=== PATIENT | male | born 1945 | race Caucasian/White ===

== ENCOUNTER → 2019-07-14 16:14 | Outpatient (CLI) | payer MEDICARE, SELFPAY ==
--- NOTE | ~2019-07-14 | XR_ITS ---
EXAMINATION: XR ankle LT 2V DATE: 07/14/2019 17:10 INDICATION: Left ankle pain TECHNIQUE: Two views of the left ankle were obtained. COMPARISON: None. FINDINGS: There is lateral soft tissue swelling of ankle. No fracture is identified. Calcified athero sclerosis is noted. IMPRESSION: 1. Lateral ankle soft tissue swelling without evidence of acute osseous abnormality. Reviewed, dictated and finalized at location A. CIATE PROFESSOR OF GEOLOGY IMPRESSION: 1. Lateral ankle soft tissue swelling without evidence of acute osseous abnorma lity.
== END ==
PROVIDERS: PCP Family Medicine; Visit Provider Family Medicine
DX: M25.472 Effusion, left ankle (principal)
CPT/HCPCS: 73600

== ENCOUNTER 2020-01-31 10:49 | Emergency (ER) | payer MEDICARE, SELFPAY ==
[2020-01-31 10:59] VITALS: BP 126/60; PULSE 50; RESP 16; TEMP 36.3; O2SAT 100
--- NOTE | 2020-01-31 11:01 | ED.SKABFB ---
HPI - Skin/Abscess/Foreign Bdy General Chief complaint: Skin/Abscess/Foreign Body Stated complaint: Rash Time Seen by Provider: 01/31/20 11:01 Source: patient and RN notes reviewed Mode of arrival: ambulatory Limitations: no limitations History of Present Illness HPI narrative: 74-year-old male history of type 1 diabetes presents with concern for rash, he thinks could be poison celeste. Reports he has had the rash on and off for approximately 3 weeks, he is unaware if he was in contact with poison celeste. Reports the rash is mildly pruritic and located on his trunk and upper legs. Reports the rash have been located on his lower legs but had resolved. He reports taking Benadryl this morning, using calamine lotion and washing the rash with dish soap. He denies any trouble breathing, swollen lips, swollen tongue. MD complaint: rash Related Data Home Medications Medication Instructions Recorded Confirmed aspirin 81 mg tablet,delayed 81 mg PO DAILY 07/14/19 release atorvastatin 40 mg tablet 40 mg PO DAILY 07/14/19 insulin glargine 100 unit/mL 100 unit SUB-Q DAILY 07/14/19 subcutaneous solution isosorbide mononitrate 60 mg 60 mg PO DAILY 07/14/19 tablet,extended release 24 hr metoprolol tartrate 50 mg tablet 50 mg PO BID tablet 07/14/19 Allergies Allergy/AdvReac Type Severity Reaction Status Date / Time levofloxacin Allergy Unknown Muscle Verified 08/02/18 15:00 Spasms Review of Systems Review of Systems: Narrative: CONSTITUTIONAL: Denies malaise, chills, sweats, or fever. EYES: Denies redness, or discharge. ENT: Denies swollen lips, swollen tongue CARDIOVASCULAR: Denies chest pain, palpitations RESPIRATORY: Denies cough or dyspnea. GASTROINTESTINAL: Denies abdominal pain, nausea, vomiting, diarrhea SKIN: Reports mildly itchy rash on abdomen and legs MUSCULOSKELETAL: Denies joint pain or myalgia. All systems reviewed & are unremarkable except as noted in HPI and below PMFSH Social History Social History Smoking status: Never smoker Alcohol intake: current Comments At time of signature, agree with nursing past medical, surgical, social and family history. There is no relevant family history pertinent to the presenting complaint Exam Narrative: Exam Narrative: GENERAL: Well-appearing, well-nourished, and in no acute distress. HEAD: Normocephalic EYES: PERRLA, conjunctivae clear, sclera clear ENT: Mucous membranes moist. NECK: Supple. CHEST: No respiratory distress. Speaks in full sentences. SKIN: Warm, dry. Papular pink rash noted to inner thighs, abdomen NEURO: Alert and oriented x3. PSYCH: Normal mood and affect Course Course Emergency Course: Patient is aware of diagnosis, understands and agrees to treatment plan. Anticipatory guidance given. Patient agrees to follow-up as directed and is aware of reasons to seek care at the emergency department. Portions of this record may have been created with voice recognition software Vital Signs Vital signs: Vital Signs Temperature 97.3 F L 01/31/20 10:59 Pulse Rate 50 L 01/31/20 10:59 Respiratory Rate 16 01/31/20 10:59 Blood Pressure 126/60 01/31/20 10:59 Pulse Oximetry 100 01/31/20 10:59 Temperature 97.3 F L 01/31/20 10:59 Pulse Rate 50 L 01/31/20 10:59 Respiratory Rate 16 01/31/20 10:59 Blood Pressure 126/60 01/31/20 10:59 Pulse Oximetry 100 01/31/20 10:59 Reviewed. MDM - Skin/Abscess/Foreign Bdy MDM Narrative Medical decision making narrative: Does not appear at this time to be erythema multiforme, bullous, SJS, TEN; no evidence at this time to suggest RMSF, endocarditis or Lyme disease; patient looks well, nontoxic and is tolerating oral intake; no neurologic signs or symptoms; no headache, photophobia or neck pain; afebrile; appropriate for initial outpatient treatment; discussed the importance of follow-up, patient agrees; question, viral exanthe
== END 2020-01-31 11:18 | disposition home or self-care (01) ==
PROVIDERS: Emergency Provider Nurse Practitioner
DX: L25.9 Unspecified contact dermatitis, unspecified cause (principal); E78.00 Pure hypercholesterolemia, unspecified; I10 Essential (primary) hypertension; E10.9 Type 1 diabetes mellitus without complications
CPT/HCPCS: 99213; G0463

== ENCOUNTER 2021-04-10 12:37 | Inpatient (IN) | payer MEDICARE, OTHER, SELFPAY ==
[2021-04-10] VITALS (18 sets, daily range): BP systolic 126–159; BP diastolic 50–65; PULSE 72–93; RESP 13–30; TEMP 37.2–38.6; O2SAT 90–96; BMI 27.9
--- NOTE | ~2021-04-10 | US_ITS ---
EXAMINATION: US venous doppler [facility] DATE: 04/11/2021 12:11 INDICATION: Hypoxia TECHNIQUE: Lo scale images without and with compression and Doppler images of the bilateral lower e xtremity veins were obtained. COMPARISON: None FINDINGS: The right common femoral vein, profunda femoral vein, femoral vein, popliteal vein, peroneal trunk, p osterior tibial veins, and greater saphenous vein are patent. The left common femoral vein, profunda femoral vein, femoral vein, popliteal vein, peroneal trunk, po sterior tibial veins, and greater saphenous vein are patent. IMPRESSION: 1. Patent bilateral lower extremity veins. No evidence of deep venous thrombosis. Reviewed, dictated and finalized at location B. X RAY NURSE IMPRESSION: 1. Patent bilateral lower extremity veins. No evidence of deep venous thrombosi s.
--- NOTE | ~2021-04-10 | CT_ITS ---
EXAMINATION: CTA chest PE protocol DATE: 04/11/2021 14:26 INDICATION: Pneumonia and hypoxia TECHNIQUE: Computed tomography angiography (CTA) of the chest was performed with 100 mL Omnipaque-350 intravenous contrast timed to evaluate the pulmonary arteries. Coronal maximum intensity projection 3D-reconstructions were created by the technologist. The dose-length product (DLP) was 399.37 mGy-cm. Automated exposure control and iterative reconstruction technique were employed. COMPARISON: None. FINDINGS: The pulmonary arteries are well-opacified. No pulmonary embolism is identified. Respiratory motion slightly limits the examination. There are airspace opacities of the right upper, middle, and lower lobes. There are patchy airspace opacities of the left lower lobe. There are small pleural eff usions, right greater than left. No pneumothorax is identified. Cardiomegaly is noted. There is a david l-lead pacemaker of the left chest wall which ends with its lead in the right atrium and right ventri david. There is a partially imaged cyst of the right kidney measuring at least 8.1 cm. There appears to be an age-indeterminate compression fracture of the T3 vertebral body. IMPRESSION: 1. No pulmonary embolus identified, sensitivity slightly limited by motion artifact. 2. Multifocal pneumonia, predominantly involving the right upper, middle, and lower lobes. Reviewed, dictated and finalized at location B. HERY WORKER IMPRESSION: 1. No pulmonary embolus identified, sensitivity slightly limited by motion owen fact. 2. Multifocal pneumonia, predominantly involving the right upper, middle, and l ower lobes.
--- NOTE | ~2021-04-10 | XR_ITS ---
XR chest 1V portable 04/10/2021 13:25 Indication: Cough and shortness of breath. Covid infection. Procedure: AP portable chest Comparison: 12/08/2012 Findings: Heart size is upper normal. Pacemaker leads in expected position. There is right basilar ai rspace consolidation, consistent with pneumonia. No pleural effusion or pneumothorax. No acute osseou s abnormality. Impression: 1: Right basilar airspace disease, compatible with pneumonia. Reviewed, dictated and finalized at location A. ICAL SCIENCES PROFESSOR Impression: 1: Right basilar airspace disease, compatible with pneumonia.
--- NOTE | ~2021-04-10 | XR_ITS ---
EXAMINATION: XR chest 1V portable INDICATION: Cough TECHNIQUE: Portable AP chest at 04/14/2021 COMPARISON: 04/11/2021 FINDINGS: Right-sided airspace opacities persist with interval worsening. Left lower lobe airspace op acities are unchanged. Cardiomegaly is noted. There is no pleural effusion or pneumothorax. A dual-le ad cardiac pacemaker of the left chest wall ends with leads in expected locations. IMPRESSION: 1. Worsening airspace opacities of the right lung, consistent with pneumonia. Reviewed, dictated and finalized at location A. WABLE ENERGY TECHNICIAN
[2021-04-10 13:29] LABS: Basophils Percent Auto 0.1 % (0.2-1.2); Hematocrit 46.4 % (42.0-52.0); Hemoglobin 15.3 g/dL (14.0-18.0); Immature Granulocyte Absolute 0.03 K/mm3 (0.00-0.031); Immature Granulocyte Percent A 0.2 % (0-0.5); Lymphocytes Absolute Auto 0.45 K/mm3 (0.9-3.2); Lymphocytes Percent Auto 3.3 % (18.3-44.2); Mean Corpuscular Hemoglobin 30.8 pg (26-34); Mean Corpuscular Volume 93.4 fl (80-100); Mean Platelet Volume 9.4 fl (7.4-10.4); Monocytes Absolute Auto 1.1 K/mm3 (0.1-0.6); Monocytes Percent Auto 8.2 % (2.6-8.5); Neutrophils Absolute Auto 12.1 K/mm3 (1.3-6.7); Neutrophils Percent Auto 88.2 % (45.5-73.1); Platelet Count Result 148 k/mm3 (150-375); Red Blood Count 4.97 M/mm3 (4.6-6.20); Red Cell Distribution Width 13.8 % (11.5-14.5); White Blood Count 13.7 K/mm3 (4.5-10.0)
[2021-04-10 13:50] LABS: Anion Gap 10 mmol/L (8-16); Blood Urea Nitrogen 31 mg/dL (9-20); Calcium 8.6 mg/dL (8.4-10.2); Carbon Dioxide 27 mmol/L (22-30); Chloride 94 mmol/L (98-107); Estimated CRCL calculation 41 ml/min; Estimated Glomerular Filt Rate 46; Glucose 332 mg/dL (65-110); Potassium 4.7 mmol/L (3.4-5.0); Sodium 131 mmol/L (137-145)
--- NOTE | 2021-04-10 13:54 | ED.URI ---
HPI - URI/Sore Throat General Chief Complaint: Upper Respiratory Infection Stated Complaint: i think i have the flu Time Seen by Provider: 04/10/21 12:56 Source: patient Mode of arrival: ambulatory History of Present Illness HPI Narrative: 75-year-old male Here for 3-day history of illness reminiscent of when he had his butt kicked by influenza 30 years ago He has a 3-day history of fevers up to 102.5 and generalized body aches He has been urinating very frequently but reports no dysuria or hematuria He does not have shortness of breath and very little in the way of a cough No rashes or redness or anything that looks like cellulitis No diarrhea He reports that his blood sugars have also been running very high in the upper 300s, and that he took an extra 60 units of regular insulin today He has both influenza and Covid vaccines that are up-to-date Related Data Home Medications Medication Instructions Recorded Confirmed aspirin 81 mg tablet,delayed 81 mg PO DAILY 07/14/19 03/08/21 release isosorbide mononitrate 60 mg 60 mg PO DAILY 07/14/19 03/08/21 tablet,extended release 24 hr metoprolol tartrate 50 mg tablet 50 mg PO BID tablet 07/14/19 03/08/21 atorvastatin 20 mg tablet 20 mg PO DAILY 08/24/20 03/08/21 cholecalciferol (vitamin D3) 50 50 mcg PO DAILY 08/24/20 03/08/21 mcg (2,000 unit) tablet clopidogrel 75 mg tablet 75 mg PO DAILY 08/24/20 03/08/21 diphenhydramine 25 1 tablet PO QHS PRN 08/24/20 03/08/21 mg-acetaminophen 500 mg tablet furosemide 20 mg tablet 20 mg PO QAM PRN 08/24/20 03/08/21 insulin glargine 100 unit/mL 34 unit SUB-Q DAILY ml 08/24/20 03/08/21 subcutaneous solution insulin lispro 100 unit/mL See Rx Instructions SUBCUT DAILY 08/24/20 03/08/21 subcutaneous pen ml isosorbide mononitrate 30 mg 30 mg PO DAILY 08/24/20 03/08/21 tablet,extended release 24 hr ropinirole 1 mg tablet 1 mg PO DAILY tablet 08/24/20 03/08/21 sacubitril 49 mg-valsartan 51 mg 0.5 tablet PO BID tablet 08/24/20 03/08/21 tablet Allergies Allergy/AdvReac Type Severity Reaction Status Date / Time levofloxacin Allergy Unknown Muscle Verified 04/10/21 12:52 Spasms lisinopril AdvReac Unknown High Verified 04/10/21 12:52 potassium Review of Systems Review of Systems: All systems reviewed & are unremarkable except as noted in HPI and below Constitutional: Constitutional: Reports no additional constitutional complaints, Reports body ache(s), Reports chills, Reports fatigue, Reports fever(s) and Denies headache(s) Eyes: Eyes: Reports no additional eye complaints and Denies change in vision ENT: Denies headache(s) and Denies sore throat Cardiovascular: Cardiovascular: Denies chest pain and Denies dyspnea Respiratory: Respiratory: Denies cough and Denies dyspnea Gastrointestinal: Gastrointestinal: Denies abdominal pain, Denies diarrhea and Denies vomiting Genitourinary: Genitourinary: Denies dysuria and Denies urinary frequency Musculoskeletal: Musculoskeletal: Denies deformity, Denies arthralgias, Denies joint swelling and Denies numbness Integumentary/Breasts: Skin/Breast: Denies rash and Denies wounds Neurologic: Denies headache(s), Denies focal weakness and Denies numbness Psychiatric: Psychiatric: Reports no additional psychiatric complaints Endocrine: Endocrine: Reports no additional endocrine complaints Hematologic/Lymphatic: Hematologic/Lymphatic: Reports no additional hematologic/lymphatic complaints Allergic/Immunologic: Allergic/Immunologic: Reports no additional allergic/immunologic complaints [facility] Past Medical History Medical History (Updated 04/10/21 @ 15:28 by Victoriano Markham MD) Cardiac pacemaker Heart block Surgical History Surgical History H/O percutaneous transluminal coronary angioplasty H/O vasectomy Family History Family History Grandparent Di
--- NOTE | 2021-04-10 14:09 | PC.NURSE ---
called lab to add on new orders to [facility]
[2021-04-10 14:15] LABS: Add Urine Microscopic? YES; Appearance Urine Cloudy (Clear); Bilirubin Urine Negative (Negative); Blood Urine 2+ (Negative); Color Urine Yellow (Yellow); Glucose Urine UA 3+ mg/dL (Negative); Ketones Urine Trace mg/dL (Negative); Leukocyte Esterase Ur Negative LEU/UL (Negative); Mucus Urine Rare /lpf; Nitrate Urine Negative (Negative); Protein Urine 3+ mg/dL (Negative); Specific Grav Ur 1.028 (1.001-1.035); Squamous Epithelial Cell Urine Occasional /hpf (Few); WBC Urine 0-3 /hpf
[2021-04-10 14:36] LABS: Beta-Hydroxybutyrate/Acetoacetate 0.98 mmol/L (0.02-0.27)
[2021-04-10 14:56] LABS: Lactate Dehydrogenase 590 U/L (313-618)
[2021-04-10 15:30] LABS: Glucose Point of Care 303 mg/dl (65-105)
[2021-04-10] MEDS: INSULIN HUMAN REGULAR (*BKC) 100 UNITS/ML IV PUSH (15:51)
[2021-04-10 16:32] LABS: Glucose Point of Care 276 mg/dl (65-105)
--- NOTE | 2021-04-10 16:35 | PC.NURSE ---
LR incompatible or not tested with antibiotics. MD aware. Start with antibiotics, continue with LR when complete.
[2021-04-10] MEDS: LACTATED RINGERS 1,000 ML 999 ML IV CONT (16:55)
--- NOTE | 2021-04-10 17:09 | PM.IMHP ---
H&P: HPI History of Present Illness Date/Time: 04/10/21 17:09 this is a 75-year-old male patient who resides with his . The patient stated for the last 3 days he has been very ill. The patient thought that maybe he had influenza. He does not have any other sick contacts. The patient has been having some shortness of breath and very little cough. He has been feeling very weak. He has diabetes type 1 and his blood sugar has been in the upper 300s. The patient stated that he took 60 units of regular insulin today. His white count was noted to be 13.7. Chest x-ray was read as right basilar airspace disease, compatible with pneumonia. The patient was started on ceftriaxone and doxycycline in the emergency room he was started on lactated Ringer's and given IV insulin. His sodium was noted to 131 chloride 94. Creatinine 1.5. His blood sugar initially was 303 now is 276. Earlier this year his hemoglobin A1c was 6.7 on 08/14/2020. His COVID swab is pending. The patient is being admitted to inpatient status on the date of service of 04/10/2021. Chief Complaint: Weakness and shortness of breath Review of Systems Review of Systems: All systems reviewed & are unremarkable except as noted in HPI and below Constitutional: Constitutional: Reports as per HPI and Reports no additional constitutional complaints Eyes: Eyes: Reports as per HPI and Reports no additional eye complaints ENT: Reports system reviewed and no additional complaints, except as documented and Reports Normal hearing present Cardiovascular: Cardiovascular: Reports no additional cardiovascular complaints Respiratory: Respiratory: Reports no additional respiratory complaints and Reports no additional respiratory complaints Gastrointestinal: Gastrointestinal: Reports as per HPI and Reports no additional gastrointestinal complaints Musculoskeletal: Musculoskeletal: Reports no additional musculoskeletal complaints Integumentary/Breasts: Skin/Breast: Reports system reviewed and no additional complaints, except as docu and Reports as per HPI Neurologic: Reports system reviewed and no additional complaints, except as documented, Reports as per HPI and Reports Normal hearing present Psychiatric: Psychiatric: Reports no additional psychiatric complaints and Reports as per HPI Endocrine: Endocrine: Reports no additional endocrine complaints Hematologic/Lymphatic: Hematologic/Lymphatic: Reports no additional hematologic/lymphatic complaints Allergic/Immunologic: Allergic/Immunologic: Reports no additional allergic/immunologic complaints [facility] Past Medical History Medical History (Updated 04/10/21 @ 17:32 by Rosita Gallardo NP) CAD (coronary artery disease) Cardiac pacemaker Congestive heart failure Depression with anxiety Essential (primary) hypertension Heart block Complete heart block requiring a pacemaker Impacted cerumen of right ear Mixed hyperlipidemia Restless leg syndrome Type 1 diabetes mellitus maturity onset Surgical History Surgical History (Updated 04/10/21 @ 17:15 by Rosita Gallardo NP) H/O percutaneous transluminal coronary angioplasty H/O vasectomy History of coronary artery stent placement X8 Family History Family History Grandparent Diabetes mellitus Hypertension Family history of coronary artery disease Sibling Hypertension Mother Family history of elevated blood lipids Family history of coronary artery disease Hypertension Family history of cardiovascular disease Father Family history of coronary artery disease Family history of elevated blood lipids Hypertension Family history of cardiovascular disease Social History Social History (Updated 04/10/21 @ 17:17 by Rosita Gallardo NP) Social History: The patient is and lives with his . He has 2 children. 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 The yoselin
[2021-04-10] MEDS: INSULIN ASPART (*BKC) 100 UNITS/ML SUB-Q (17:48)
[2021-04-10] MEDS: LACTATED RINGERS 1,000 ML 150 ML IV CONT ×2 (17:48→23:09)
[2021-04-10 17:49] LABS: Glucose Point of Care 297 mg/dl (65-105)
[2021-04-10] MEDS: ALBUTEROL SULFATE (*SP) INHALER 2 PUFF INHALATION (21:15)
[2021-04-10 21:38] LABS: Glucose Point of Care 380 mg/dl (65-105)
[2021-04-10] MEDS: rOPINIRole HCL 1 MG TABLET PO (23:08)
[2021-04-10] MEDS: METOPROLOL TARTRATE 50 MG TAB PO (23:09)
[2021-04-10] MEDS: INSULIN GLARGINE (*BKC) 100 UNITS/ML 34 UNITS SUB-Q (23:10)
[2021-04-10] MEDS: INSULIN ASPART (*BKC) 100 UNITS/ML 8 UNITS SUB-Q (23:10)
[2021-04-10] MEDS: ACETAMINOPHEN 325 MG TABLET 650 MG PO (23:16)
[2021-04-10] MEDS: SACUBITRIL/VALSARTAN 24-26 MG TABLET 1 TAB PO (23:17)
[2021-04-10] MEDS: diphenhydrAMINE HCl CAP 25 MG CAPSULE PO (23:17)
[2021-04-11] VITALS (15 sets, daily range): BP systolic 104–149; BP diastolic 53–77; PULSE 73–118; RESP 18–28; TEMP 36–37.6; O2SAT 86–98
[2021-04-11] MEDS: ALBUTEROL SULFATE (*SP) INHALER 2 PUFF INHALATION ×4 (03:03→19:45)
[2021-04-11 07:04] LABS: Basophils Percent Auto 0.1 % (0.2-1.2); Hematocrit 48.8 % (42.0-52.0); Hemoglobin 15.7 g/dL (14.0-18.0); Immature Granulocyte Absolute 0.08 K/mm3 (0.00-0.031); Immature Granulocyte Percent A 0.6 % (0-0.5); Lymphocytes Percent Auto 4.5 % (18.3-44.2); Mean Corpuscular HGB Conc 32.2 g/dl (32-36); Mean Corpuscular Hemoglobin 30.4 pg (26-34); Mean Corpuscular Volume 94.4 fl (80-100); Mean Platelet Volume 10.4 fl (7.4-10.4); Monocytes Absolute Auto 1.4 K/mm3 (0.1-0.6); Monocytes Percent Auto 10.3 % (2.6-8.5); Neutrophils Absolute Auto 11.3 K/mm3 (1.3-6.7); Neutrophils Percent Auto 84.5 % (45.5-73.1); Platelet Count Result 152 k/mm3 (150-375); Red Blood Count 5.17 M/mm3 (4.6-6.20); White Blood Count 13.4 K/mm3 (4.5-10.0)
[2021-04-11 08:00] LABS: Alanine Aminotransferase 22 U/L (4-50); Albumin Level 3.2 g/dL (3.5-5.1); Alkaline Phosphatase 124 U/L (38-126); Anion Gap 8 mmol/L (8-16); Aspartate Amino Transferase 65 U/L (17-59); Bilirubin,Total 0.8 mg/dL (0.2-1.3); Blood Urea Nitrogen 28 mg/dL (9-20); Calcium 8.8 mg/dL (8.4-10.2); Carbon Dioxide 24 mmol/L (22-30); Chloride 98 mmol/L (98-107); Estimated CRCL calculation 44 ml/min; Estimated Glomerular Filt Rate 50; Glucose 337 mg/dL (65-110); Lactate Dehydrogenase 636 U/L (313-618); Phosphorus 3.6 mg/dL (2.5-4.5); Potassium 4.9 mmol/L (3.4-5.0); Sodium 130 mmol/L (137-145)
[2021-04-11 08:27] LABS: Hemoglobin A1C 6.1 % (<5.7)
[2021-04-11] MEDS: SACUBITRIL/VALSARTAN 24-26 MG TABLET 1 TAB PO ×2 (08:44→20:45)
[2021-04-11] MEDS: CHOLECALCIFEROL 1,000 UNITS TABLET 2000 UNITS PO (08:45)
[2021-04-11] MEDS: ASPIRIN 81 MG ENTERIC TABLET PO (08:45)
[2021-04-11] MEDS: ENOXAPARIN 40 MG/0.4 ML SYRINGE SUB-Q (08:45)
[2021-04-11] MEDS: CITALOPRAM HYDROBROMIDE 20 MG TABLET PO (08:45)
[2021-04-11] MEDS: CLOPIDOGREL BISULFATE 75 MG TABLET PO (08:45)
[2021-04-11] MEDS: ATORVASTATIN 20 MG TABLET PO (08:45)
[2021-04-11] MEDS: ISOSORBIDE MONONITRATE 60 MG TAB.ER.24H 120 MG PO (08:45)
[2021-04-11] MEDS: ISOSORBIDE MONONITRATE 30 MG TAB.ER.24H PO (08:45)
[2021-04-11] MEDS: METOPROLOL TARTRATE 50 MG TAB PO ×2 (08:46→20:45)
[2021-04-11] MEDS: INSULIN ASPART (*BKC) 100 UNITS/ML SUB-Q ×2 (08:52→09:06)
[2021-04-11 08:58] LABS: Glucose Point of Care 423 mg/dl (65-105)
[2021-04-11 10:33] LABS: Glucose Point of Care 406 mg/dl (65-105)
[2021-04-11] MEDS: INSULIN ASPART (*BKC) 100 UNITS/ML 10 UNITS SUB-Q ×2 (11:11→12:32)
[2021-04-11 12:41] LABS: Glucose Point of Care 363 mg/dl (65-105)
--- NOTE | 2021-04-11 14:18 | PM.IMPN ---
Progress Note: A&P Assessment and Plan (1) Pneumonia: Code(s): J18.9 - Pneumonia, unspecified organism Status: Acute Assessment and Plan: CT of the lungs show significant pneumonia of the right lung, suspect this will end up being bacterial pneumonia -continue ceftriaxone and azithromycin -continue oxygen as needed -continue albuterol -blood cultures have no growth to date -patient has a dry cough but we will try to get a sputum culture -await COVID PCR test, patient is fully vaccinated. Influenza negative -d-dimer elevated, await official CTA read. (2) Suspected COVID-19 virus infection: Code(s): Z20.822 - Contact with and (suspected) exposure to COVID-19 Status: Acute Assessment and Plan: Continue isolation (3) CAD (coronary artery disease): Code(s): I25.10 - Atherosclerotic heart disease of cheesh-na coronary artery without angina pectoris Status: Chronic Assessment and Plan: No chest pain. Continue with aspirin, atorvastatin, metoprolol, and Plavix (4) Congestive heart failure: Code(s): I50.9 - Heart failure, unspecified Status: Chronic Assessment and Plan: Patient appears euvolemic. -continue Entresto, metoprolol, aspirin, atorvastatin and isosorbide (5) Essential (primary) hypertension: Code(s): I10 - Essential (primary) hypertension Status: Chronic Assessment and Plan: Last blood pressure 104/60 -monitor (6) Type 1 diabetes mellitus maturity onset: Code(s): E10.9 - Type 1 diabetes mellitus without complications Status: Chronic Assessment and Plan: Patient confirms he is a type 1 diabetic. Last glucose 363 -Patient is unsure of exactly how much insulin he takes but thinks it is about 100 units a day combined -for now we will start with 20 units of insulin scheduled with sliding scale as well as Lantus -his diabetes is under control at home with an A1c of 6.1 (7) Restless leg syndrome: Code(s): G25.81 - Restless legs syndrome Status: Chronic Assessment and Plan: Continue with continue with ropinirole (8) Mixed hyperlipidemia: Code(s): E78.2 - Mixed hyperlipidemia Status: Chronic Assessment and Plan: Continue with atorvastatin (9) Depression with anxiety: Code(s): F41.8 - Other specified anxiety disorders Status: Chronic Assessment and Plan: Chronic and controlled. Continue with Celexa Time Spent With Patient Time with patient: 25 - 35 minutes Subjective Date/time seen: 04/11/21 14:18 Interval history: Pt is a 75 y/o male here for PNA. Pt was seen today and states he feels so much better while wearing oxygen. This morning he felt like he was struggling to breathe and that he thought he was going to . He is coughing but it is a dry cough. He has shortness of breath with any movement. He has decreased appetite. No nausea, vomiting, diarrhea or constipation. He is unsure the amount of insulin he takes at home. He at 1st thought it was 100 units with meals but then thought maybe it was 30. I called the who did not know how much insulin he took either. Review of Systems Review of Systems: All systems reviewed & are unremarkable except as noted in HPI and below Exam Narrative: General: Well developed well nourished patient in NAD HEENT: normocephalic Neck: supple Neuro: Alert and oriented x4 CV:RRR Resp: Crackles and rhonchi worse in the right lobe with decreased breath sounds. No conversational dyspnea. 6 L applied Abd: Soft, non distended. No pain to palpation. Positive bowel sounds Extremities: No swelling, erythema, or pain to palpation. Objective Data Vital Signs Vital Signs: Vital Signs - 24 hr 04/10/21 14:54 04/10/21 15:00 04/10/21 15:18 Temperature Pulse Rate 78 72 86 Respiratory Rate 13 14 23 H Blood Pressure Pulse Oximetry 94 96 11
[2021-04-11] MEDS: guaiFENesin 12 HR 600 MG TABCR PO ×2 (15:20→20:46)
[2021-04-11 17:00] LABS: Glucose Point of Care 162 mg/dl (65-105)
[2021-04-11 17:50] LABS: SARS-CoV-2 RNA PCR Negative
[2021-04-11 18:39] LABS: Glucose Point of Care 206 mg/dl (65-105)
[2021-04-11 20:27] LABS: Glucose Point of Care 239 mg/dl (65-105)
[2021-04-11] MEDS: INSULIN GLARGINE (*BKC) 100 UNITS/ML 34 UNITS SUB-Q (20:44)
[2021-04-11] MEDS: rOPINIRole HCL 1 MG TABLET PO (20:45)
[2021-04-11] MEDS: ACETAMINOPHEN 325 MG TABLET 650 MG PO (20:55)
[2021-04-12] VITALS (16 sets, daily range): BP systolic 135–138; BP diastolic 61–64; PULSE 48–107; RESP 16–18; TEMP 36.8–37.3; O2SAT 92–98
--- NOTE | 2021-04-12 | ECHO_ITS ---
Patient Info Name: Óscar Soto Age: 75 years : 1945 Gender: Male Ht: 70 in Wt: 190 lbs BSA: 2.08 m2 HR: 91 bpm BP: 136 / 61 mmHg Heart Rhythm: Paced Exam Date: 04/12/2021 9:30 AM Exam Location: [facility] Patient Status: Inpatient Admit Date: 04/10/2021 Staff Ordering Physician: Rosita Gallardo NP Wind Site Manager: Laron Montano RDCS, RT Attending Provider: Dionne Jacobs PA-C Referring Physician: Paulina KELLOGG; Exam Type: CA echo doppler color flow Study Info Indications I50.9 - Heart failure, unspecified Complete two-dimensional, color flow and Doppler transthoracic echocardiogram is performed. Strain analysis performed. Summary 1. Complete two-dimensional, color flow and Doppler transthoracic echocardiogram is performed. 2. Left ventricular chamber dimension is mildly enlarged. 3. Left ventricular systolic function is moderately reduced, estimated at 35-40%. 4. Linear artifact in right ventricle suggestive of catheter(s), pacemaker lead(s), or ICD lead(s). 5. Left atrial chamber dimension is mildly enlarged. 6. Small amount of mitral and aortic valve regurgitation. Left Ventricle Left ventricular chamber dimension is mildly enlarged. Left ventricular systolic function is moderately reduced, estimated at 35-40%. The left ventricular diastolic function is normal. Right Ventricle Right ventricular chamber dimension is normal. Linear artifact in right ventricle suggestive of catheter(s), pacemaker lead(s), or ICD lead(s). Left Atria Left atrial chamber dimension is mildly enlarged. Right Atria Right atrial chamber dimension is normal. Linear artifact in the right atrium suggestive of catheter(s), pacemaker lead(s), or ICD lead(s). Aortic Valve The aortic valve is trileaflet. There is mild aortic valve sclerosis. There is mild aortic valve regurgitation. Pulmonic Valve The pulmonic valve is not well visualized. Mitral Valve The mitral valve has normal leaflets. There is trace mitral valve regurgitation. Tricuspid Valve The tricuspid valve leaflets are normal. Pericardium/Pleural The pericardium appears normal. Aorta The aortic root size at the sinus of Valsalva is not well visualized. Left Ventricular Outflow Tract Name Value Normal LVOT 2D LVOT Diameter 2.1 cm LVOT Doppler LVOT Peak Gradient 6 mmHg LVOT Mean Gradient 3 mmHg LVOT VTI 19 cm LVOT VTI/AV VTI Ratio 0.8 LVOT Stroke Volume 67 ml LVOT CO 6.2 l/min LVOT CI 3.0 l/min/m2 Mitral Valve Name Value Normal MV Doppler MV Decel [place] 1,055 cm/s2 MV PHT 27 ms
[2021-04-12] MEDS: ALBUTEROL SULFATE (*SP) INHALER 2 PUFF INHALATION ×4 (01:56→20:25)
[2021-04-12 06:23] LABS: Hematocrit 43.9 % (42.0-52.0); Hemoglobin 14.9 g/dL (14.0-18.0); Mean Corpuscular HGB Conc 33.9 g/dl (32-36); Mean Corpuscular Volume 88.5 fl (80-100); Mean Platelet Volume 10.7 fl (7.4-10.4); Platelet Count Result 151 k/mm3 (150-375); Red Blood Count 4.96 M/mm3 (4.6-6.20); Red Cell Distribution Width 13.4 % (11.5-14.5); White Blood Count 10.1 K/mm3 (4.5-10.0)
[2021-04-12 06:38] LABS: Anion Gap 5 mmol/L (8-16); Blood Urea Nitrogen 32 mg/dL (9-20); Calcium 8.6 mg/dL (8.4-10.2); Carbon Dioxide 27 mmol/L (22-30); Chloride 98 mmol/L (98-107); Estimated CRCL calculation 51 ml/min; Estimated Glomerular Filt Rate 59; Glucose 259 mg/dL (65-110); Sodium 130 mmol/L (137-145)
[2021-04-12 06:50] LABS: CRP 25.4 mg/dL (<1.0)
[2021-04-12 08:46] LABS: Glucose Point of Care 231 mg/dl (65-105)
[2021-04-12] MEDS: INSULIN ASPART (*BKC) 100 UNITS/ML 20 UNITS SUB-Q ×2 (08:47→12:00)
[2021-04-12] MEDS: INSULIN ASPART (*BKC) 100 UNITS/ML SUB-Q (08:48)
[2021-04-12] MEDS: ASPIRIN 81 MG ENTERIC TABLET PO (08:49)
[2021-04-12] MEDS: SACUBITRIL/VALSARTAN 24-26 MG TABLET 1 TAB PO ×2 (08:49→20:46)
[2021-04-12] MEDS: ISOSORBIDE MONONITRATE 60 MG TAB.ER.24H 120 MG PO (08:49)
[2021-04-12] MEDS: ENOXAPARIN 40 MG/0.4 ML SYRINGE SUB-Q (08:49)
[2021-04-12] MEDS: METOPROLOL TARTRATE 50 MG TAB PO ×2 (08:49→20:46)
[2021-04-12] MEDS: CHOLECALCIFEROL 1,000 UNITS TABLET 2000 UNITS PO (08:49)
[2021-04-12] MEDS: CLOPIDOGREL BISULFATE 75 MG TABLET PO (08:50)
[2021-04-12] MEDS: ISOSORBIDE MONONITRATE 30 MG TAB.ER.24H PO (08:50)
[2021-04-12] MEDS: ATORVASTATIN 20 MG TABLET PO (08:50)
[2021-04-12] MEDS: CITALOPRAM HYDROBROMIDE 20 MG TABLET PO (08:50)
[2021-04-12] MEDS: guaiFENesin 12 HR 600 MG TABCR PO ×2 (08:50→20:46)
[2021-04-12 12:12] LABS: Glucose Point of Care 178 mg/dl (65-105)
[2021-04-12] MEDS: ACETAMINOPHEN 325 MG TABLET 650 MG PO (14:12)
--- NOTE | 2021-04-12 14:18 | PM.IMPN ---
Progress Note: A&P Assessment and Plan (1) Pneumonia: Code(s): J18.9 - Pneumonia, unspecified organism Status: Acute Assessment and Plan: CT of the lungs show significant pneumonia of the right lung consistent with bacterial pneumonia -continue ceftriaxone and azithromycin -continue oxygen as needed -continue albuterol -blood cultures have no growth to date -patient has a dry cough but we will try to get a sputum culture -COVID-19 and Influenza negative -Legionella? Patient also has hyponatremia. Check urine antigens -d-dimer elevated no PE or lower extremity DVTs (2) Suspected COVID-19 virus infection: Code(s): Z20.822 - Contact with and (suspected) exposure to COVID-19 Status: Acute Assessment and Plan: PCR ruled out COVID. (3) CAD (coronary artery disease): Code(s): I25.10 - Atherosclerotic heart disease of [place] coronary artery without angina pectoris Status: Chronic Assessment and Plan: No chest pain. Continue with Entresto, aspirin, atorvastatin, metoprolol, and Plavix (4) Congestive heart failure: Code(s): I50.9 - Heart failure, unspecified Status: Chronic Assessment and Plan: Patient appears euvolemic. -continue Entresto, metoprolol, aspirin, atorvastatin and isosorbide (5) Essential (primary) hypertension: Code(s): I10 - Essential (primary) hypertension Status: Chronic Assessment and Plan: Last blood pressure 136/61 -monitor (6) Type 1 diabetes mellitus maturity onset: Code(s): E10.9 - Type 1 diabetes mellitus without complications Status: Chronic Assessment and Plan: Patient confirms he is a type 1 diabetic. Last glucose 178 -Patient is unsure of exactly how much insulin he takes but thinks it is about 100 units a day combined -will increase to 25 units with meals. Patient is requesting tighter glucose control. -his diabetes is under control at home with an A1c of 6.1 (7) Restless leg syndrome: Code(s): G25.81 - Restless legs syndrome Status: Chronic Assessment and Plan: Continue with continue with ropinirole (8) Mixed hyperlipidemia: Code(s): E78.2 - Mixed hyperlipidemia Status: Chronic Assessment and Plan: Continue with atorvastatin (9) Depression with anxiety: Code(s): F41.8 - Other specified anxiety disorders Status: Chronic Assessment and Plan: Chronic and controlled. Continue with Celexa (10) Hyponatremia: Code(s): E87.1 - Hypo-osmolality and hyponatremia Status: Acute Assessment and Plan: 130 today -could be due to acute illness -not on any diuretics -will check urine sodium -legionella on ddx -records in EMR show a sodium of 140 on 08/14/20 Subjective Date/time seen: 04/12/21 14:18 Interval history: Pt is a 75 y/o male here for PNA. Patient was seen today and states he is feeling better but not 100%. He thinks he currently has a fever as he is having some body aches. His breathing is better since he has had the oxygen. He continues to have a dry cough. He feels short of breath with movement. He has no chest pain. Exam Narrative: General: Well developed well nourished patient in NAD HEENT: normocephalic Neck: supple Neuro: Alert and oriented x4 CV:RRR. Telemetry showing paced rhythm Resp: Crackles and rhonchi worse in the right lobe with decreased breath sounds. No conversational dyspnea. 2 L applied Abd: Soft, non distended. No pain to palpation. Positive bowel sounds Extremities: No swelling, erythema, or pain to palpation. Objective Data Vital Signs Vital Signs: Vital Signs - 24 hr 04/11/21 15:22 04/11/21 16:00 04/11/21 17:30 Temperature Pulse Rate Respiratory Rate Blood Pressure Pulse Oximetry 96 95 95 04/11/21 19:50 04/11/21 19:51 04/11/21 20:45 Temperature Pulse Rate 76 76 Respira
[2021-04-12 15:07] LABS: Sodium Urine Random 5 meq/L
[2021-04-12 16:36] LABS: Glucose Point of Care 117 mg/dl (65-105)
[2021-04-12] MEDS: INSULIN ASPART (*BKC) 100 UNITS/ML 25 UNITS SUB-Q (17:20)
[2021-04-12] MEDS: rOPINIRole HCL 1 MG TABLET PO (20:46)
[2021-04-12 22:00] LABS: Glucose Point of Care 83 mg/dl (65-105)
[2021-04-13] VITALS (14 sets, daily range): BP systolic 108–121; BP diastolic 53–65; PULSE 79–112; RESP 16–20; TEMP 36.6–37.1; O2SAT 90–94
[2021-04-13] MEDS: ALBUTEROL SULFATE (*SP) INHALER 2 PUFF INHALATION ×4 (01:53→20:04)
[2021-04-13 06:03] LABS: Alanine Aminotransferase 56 U/L (4-50); Alkaline Phosphatase 133 U/L (38-126); Anion Gap 8 mmol/L (8-16); Aspartate Amino Transferase 106 U/L (17-59); Bilirubin,Total 0.8 mg/dL (0.2-1.3); Blood Urea Nitrogen 31 mg/dL (9-20); Calcium 8.2 mg/dL (8.4-10.2); Carbon Dioxide 25 mmol/L (22-30); Chloride 97 mmol/L (98-107); Estimated CRCL calculation 51 ml/min; Estimated Glomerular Filt Rate 59; Glucose 223 mg/dL (65-110); Potassium 3.7 mmol/L (3.4-5.0); Sodium 130 mmol/L (137-145)
[2021-04-13 06:08] LABS: Hematocrit 43.2 % (42.0-52.0); Hemoglobin 14.9 g/dL (14.0-18.0); Mean Corpuscular HGB Conc 34.5 g/dl (32-36); Mean Corpuscular Hemoglobin 30.6 pg (26-34); Mean Corpuscular Volume 88.7 fl (80-100); Mean Platelet Volume 10.7 fl (7.4-10.4); Platelet Count Result 162 k/mm3 (150-375); Red Blood Count 4.87 M/mm3 (4.6-6.20); Red Cell Distribution Width 13.4 % (11.5-14.5); White Blood Count 9.2 K/mm3 (4.5-10.0)
[2021-04-13 07:44] LABS: Glucose Point of Care 221 mg/dl (65-105)
[2021-04-13] MEDS: INSULIN ASPART (*BKC) 100 UNITS/ML SUB-Q (08:03)
[2021-04-13] MEDS: INSULIN ASPART (*BKC) 100 UNITS/ML 25 UNITS SUB-Q ×2 (08:04→11:45)
[2021-04-13] MEDS: ATORVASTATIN 20 MG TABLET PO (08:07)
[2021-04-13] MEDS: CHOLECALCIFEROL 1,000 UNITS TABLET 2000 UNITS PO (08:07)
[2021-04-13] MEDS: ENOXAPARIN 40 MG/0.4 ML SYRINGE SUB-Q (08:07)
[2021-04-13] MEDS: ISOSORBIDE MONONITRATE 60 MG TAB.ER.24H 120 MG PO (08:07)
[2021-04-13] MEDS: ISOSORBIDE MONONITRATE 30 MG TAB.ER.24H PO (08:08)
[2021-04-13] MEDS: CLOPIDOGREL BISULFATE 75 MG TABLET PO (08:08)
[2021-04-13] MEDS: METOPROLOL TARTRATE 50 MG TAB PO ×2 (08:08→20:38)
[2021-04-13] MEDS: CITALOPRAM HYDROBROMIDE 20 MG TABLET PO (08:09)
[2021-04-13] MEDS: ASPIRIN 81 MG ENTERIC TABLET PO (08:09)
[2021-04-13] MEDS: SACUBITRIL/VALSARTAN 24-26 MG TABLET 1 TAB PO ×2 (08:09→20:39)
[2021-04-13] MEDS: guaiFENesin 12 HR 600 MG TABCR PO ×2 (08:10→20:38)
[2021-04-13 11:42] LABS: Glucose Point of Care 196 mg/dl (65-105)
--- NOTE | 2021-04-13 15:41 | PM.IMPN ---
Progress Note: A&P Assessment and Plan (1) Pneumonia: Code(s): J18.9 - Pneumonia, unspecified organism Status: Acute Assessment and Plan: CT of the lungs show significant pneumonia of the right lung consistent with bacterial pneumonia -continue ceftriaxone and azithromycin -continue oxygen as needed - he is on room air at rest currently -continue albuterol -blood cultures have no growth to date -patient has a dry cough but we will try to get a sputum culture -COVID-19 and Influenza negative -Legionella? Patient also has hyponatremia. Check urine antigens -d-dimer elevated no PE or lower extremity DVTs (2) Suspected COVID-19 virus infection: Code(s): Z20.822 - Contact with and (suspected) exposure to COVID-19 Status: Acute Assessment and Plan: PCR ruled out COVID. (3) CAD (coronary artery disease): Code(s): I25.10 - Atherosclerotic heart disease of [place] coronary artery without angina pectoris Status: Chronic Assessment and Plan: No chest pain. Continue with Entresto, aspirin, atorvastatin, metoprolol, and Plavix (4) Congestive heart failure: Code(s): I50.9 - Heart failure, unspecified Status: Chronic Assessment and Plan: Patient appears euvolemic. -continue Entresto, metoprolol, aspirin, atorvastatin and isosorbide (5) Essential (primary) hypertension: Code(s): I10 - Essential (primary) hypertension Status: Chronic Assessment and Plan: Last blood pressure 108/53 -monitor (6) Type 1 diabetes mellitus maturity onset: Code(s): E10.9 - Type 1 diabetes mellitus without complications Status: Chronic Assessment and Plan: Patient confirms he is a type 1 diabetic. Last glucose 178 -Patient is unsure of exactly how much insulin he takes but thinks it is about 100 units a day combined -will increase to 25 units with meals. Patient is requesting tighter glucose control. -his diabetes is under control at home with an A1c of 6.1 -seems to be trending high first thing fasting in the morning, daytime sugars have been better controlled. Will add to his Lantus increase to 40 units QHS. (7) Restless leg syndrome: Code(s): G25.81 - Restless legs syndrome Status: Chronic Assessment and Plan: Continue with continue with ropinirole (8) Mixed hyperlipidemia: Code(s): E78.2 - Mixed hyperlipidemia Status: Chronic Assessment and Plan: Continue with atorvastatin (9) Depression with anxiety: Code(s): F41.8 - Other specified anxiety disorders Status: Chronic Assessment and Plan: Chronic and controlled. Continue with Celexa (10) Hyponatremia: Code(s): E87.1 - Hypo-osmolality and hyponatremia Status: Acute Assessment and Plan: 130 today - has remained stable -could be due to acute illness -not on any diuretics -urine sodium 5 -legionella on ddx -records in EMR show a sodium of 140 on 08/14/20 -also on citalopram, could be contributing?? Subjective Date/time seen: 04/13/21 15:41 Interval history: Pt is a 75 y/o male here for PNA. Patient was seen today and states he is feeling much better but not 100%. He continues to have a dry cough but that is improved. He feels short of breath only with movement. He has no chest pain. He is sitting in the chair resting comfortably on room air at this time. He states he felt feverish/achey overnight. Review of Systems Review of Systems: General: + fevers, +bodyaches Eyes: Denies vision changes or eye pain ENT: Denies nasal congestion or sore throat Respiratory: + cough, + shortness of breath Cardiovascular: Denies chest pain, palpitations, or lower extremity edema Gastrointestinal: Denies abdominal pain, vomiting, or diarrhea Genitourinary: Denies dysuria or urinary frequency Musculoskeletal: Denies back pain Neurological: Denies headache,
[2021-04-13 16:24] LABS: Glucose Point of Care 74 mg/dl (65-105)
[2021-04-13 18:15] LABS: Glucose Point of Care 85 mg/dl (65-105)
[2021-04-13 20:35] LABS: Glucose Point of Care 141 mg/dl (65-105)
[2021-04-13] MEDS: rOPINIRole HCL 1 MG TABLET PO (20:38)
[2021-04-13] MEDS: INSULIN GLARGINE (*BKC) 100 UNITS/ML 40 UNITS SUB-Q (20:45)
[2021-04-13] MEDS: ACETAMINOPHEN 500 MG TABLET BY MOUTH (22:16)
[2021-04-13] MEDS: diphenhydrAMINE HCl CAP 25 MG CAPSULE PO (22:16)
[2021-04-14] VITALS (11 sets, daily range): BP systolic 108–137; BP diastolic 47–62; PULSE 60–88; RESP 16–21; TEMP 36.1–37.4; O2SAT 92–96
[2021-04-14] MEDS: ALBUTEROL SULFATE (*SP) INHALER 2 PUFF INHALATION ×4 (01:44→19:55)
[2021-04-14 06:37] LABS: Anion Gap 7 mmol/L (8-16); Blood Urea Nitrogen 34 mg/dL (9-20); Calcium 8.2 mg/dL (8.4-10.2); Carbon Dioxide 24 mmol/L (22-30); Chloride 100 mmol/L (98-107); Estimated CRCL calculation 51 ml/min; Estimated Glomerular Filt Rate 59; Glucose 168 mg/dL (65-110); Potassium 3.9 mmol/L (3.4-5.0); Sodium 131 mmol/L (137-145)
[2021-04-14 07:00] LABS: Hemoglobin 14.7 g/dL (14.0-18.0); Mean Corpuscular HGB Conc 34.2 g/dl (32-36); Mean Corpuscular Hemoglobin 30.1 pg (26-34); Mean Corpuscular Volume 88.1 fl (80-100); Mean Platelet Volume 11.1 fl (7.4-10.4); Platelet Count Result 174 k/mm3 (150-375); Red Blood Count 4.88 M/mm3 (4.6-6.20); Red Cell Distribution Width 13.7 % (11.5-14.5); White Blood Count 7.2 K/mm3 (4.5-10.0)
[2021-04-14 08:06] LABS: Glucose Point of Care 162 mg/dl (65-105)
[2021-04-14] MEDS: ENOXAPARIN 40 MG/0.4 ML SYRINGE SUB-Q (08:13)
[2021-04-14] MEDS: ATORVASTATIN 20 MG TABLET PO (08:13)
[2021-04-14] MEDS: INSULIN ASPART (*BKC) 100 UNITS/ML 25 UNITS SUB-Q ×2 (08:13→12:13)
[2021-04-14] MEDS: SACUBITRIL/VALSARTAN 24-26 MG TABLET 1 TAB PO ×2 (08:14→20:40)
[2021-04-14] MEDS: ISOSORBIDE MONONITRATE 30 MG TAB.ER.24H PO (08:14)
[2021-04-14] MEDS: ASPIRIN 81 MG ENTERIC TABLET PO (08:14)
[2021-04-14] MEDS: CHOLECALCIFEROL 1,000 UNITS TABLET 2000 UNITS PO (08:14)
[2021-04-14] MEDS: ISOSORBIDE MONONITRATE 60 MG TAB.ER.24H 120 MG PO (08:14)
[2021-04-14] MEDS: CITALOPRAM HYDROBROMIDE 20 MG TABLET PO (08:14)
[2021-04-14] MEDS: guaiFENesin 12 HR 600 MG TABCR PO ×2 (08:14→20:40)
[2021-04-14] MEDS: CLOPIDOGREL BISULFATE 75 MG TABLET PO (08:14)
[2021-04-14] MEDS: METOPROLOL TARTRATE 50 MG TAB PO ×2 (08:14→20:41)
[2021-04-14 11:40] LABS: Glucose Point of Care 102 mg/dl (65-105)
--- NOTE | 2021-04-14 13:55 | PM.IMPN ---
Progress Note: A&P Assessment and Plan (1) Pneumonia: Code(s): J18.9 - Pneumonia, unspecified organism Status: Acute Assessment and Plan: CT of the lungs show significant pneumonia of the right lung consistent with bacterial pneumonia -continue ceftriaxone and azithromycin -continue oxygen as needed - he is on room air currently -continue albuterol -blood cultures have no growth to date -patient has a dry cough but we will try to get a sputum culture -COVID-19 and Influenza negative -Legionella? Patient also has hyponatremia. Check urine antigens -d-dimer elevated no PE or lower extremity DVTs -CXR w/ worsening pneumonia but pt continues to improve clinically -will get home O2 eval and consider discharge tomorrow if he continues to improve (2) Suspected COVID-19 virus infection: Code(s): Z20.822 - Contact with and (suspected) exposure to COVID-19 Status: Acute Assessment and Plan: PCR ruled out COVID. (3) CAD (coronary artery disease): Code(s): I25.10 - Atherosclerotic heart disease of [place] coronary artery without angina pectoris Status: Chronic Assessment and Plan: No chest pain. Continue with Entresto, aspirin, atorvastatin, metoprolol, and Plavix (4) Congestive heart failure: Code(s): I50.9 - Heart failure, unspecified Status: Chronic Assessment and Plan: Patient appears euvolemic. -continue Entresto, metoprolol, aspirin, atorvastatin and isosorbide (5) Essential (primary) hypertension: Code(s): I10 - Essential (primary) hypertension Status: Chronic Assessment and Plan: Last blood pressure 108/53 -monitor (6) Type 1 diabetes mellitus maturity onset: Code(s): E10.9 - Type 1 diabetes mellitus without complications Status: Chronic Assessment and Plan: -Patient confirms he is a type 1 diabetic -Patient is unsure of exactly how much insulin he takes but thinks it is about 100 units a day combined -will increase to 25 units with meals. Patient is requesting tighter glucose control. -his diabetes is under control at home with an A1c of 6.1 -seems to be trending high first thing fasting in the morning, daytime sugars have been better controlled. Will add to his Lantus increase to 40 units QHS. -fasting glucose this morning down to 168, will continue current regimen w/ high sliding scale, 25 units TIDWM, and 40 units Lantus. -continue monitoring (7) Restless leg syndrome: Code(s): G25.81 - Restless legs syndrome Status: Chronic Assessment and Plan: Continue with continue with ropinirole (8) Mixed hyperlipidemia: Code(s): E78.2 - Mixed hyperlipidemia Status: Chronic Assessment and Plan: Continue with atorvastatin (9) Depression with anxiety: Code(s): F41.8 - Other specified anxiety disorders Status: Chronic Assessment and Plan: Chronic and controlled. Continue with Celexa (10) Hyponatremia: Code(s): E87.1 - Hypo-osmolality and hyponatremia Status: Acute Assessment and Plan: 131 today - has remained stable -could be due to acute illness -not on any diuretics -urine sodium 5 -legionella on ddx -records in EMR show a sodium of 140 on 08/14/20 -also on citalopram, could be contributing?? Subjective Date/time seen: 04/14/21 13:55 Interval history: Pt is a 75 y/o male here for PNA. Patient was seen today and states he is feeling much better but not 100%. He continues to have a dry cough but this has improved. He feels short of breath only with exertion. He has no chest pain. He was able to ambulate the [place] today without using oxygen. Review of Systems Review of Systems: General: no fevers, no bodyaches Eyes: Denies vision changes or eye pain ENT: Denies nasal congestion or sore throat Respiratory: + cough, + shortness of breath Cardiovascular: Denies chest
[2021-04-14 15:48] LABS: Glucose Point of Care 112 mg/dl (65-105)
[2021-04-14] MEDS: rOPINIRole HCL 1 MG TABLET PO (20:40)
[2021-04-14] MEDS: INSULIN GLARGINE (*BKC) 100 UNITS/ML 40 UNITS SUB-Q (20:55)
[2021-04-14] MEDS: ACETAMINOPHEN 500 MG TABLET BY MOUTH (20:55)
[2021-04-14] MEDS: diphenhydrAMINE HCl CAP 25 MG CAPSULE PO (20:56)
[2021-04-14 21:59] LABS: Glucose Point of Care 242 mg/dl (65-105)
[2021-04-15] MEDS: ALBUTEROL SULFATE (*SP) INHALER 2 PUFF INHALATION ×2 (01:36→08:31)
[2021-04-15 06:00] VITALS: BP 137/59; PULSE 65; RESP 18; TEMP 36.5; O2SAT 99
[2021-04-15 06:59] LABS: Anion Gap 6 mmol/L (8-16); Blood Urea Nitrogen 30 mg/dL (9-20); Carbon Dioxide 24 mmol/L (22-30); Chloride 103 mmol/L (98-107); Estimated CRCL calculation 55 ml/min; Estimated Glomerular Filt Rate > 60; Glucose 177 mg/dL (65-110); Sodium 133 mmol/L (137-145)
[2021-04-15 08:00] VITALS: O2SAT 99
[2021-04-15] MEDS: INSULIN ASPART (*BKC) 100 UNITS/ML 25 UNITS SUB-Q (08:38)
[2021-04-15 08:39] VITALS: PULSE 80
[2021-04-15] MEDS: CHOLECALCIFEROL 1,000 UNITS TABLET 2000 UNITS PO (08:39)
[2021-04-15] MEDS: ENOXAPARIN 40 MG/0.4 ML SYRINGE SUB-Q (08:39)
[2021-04-15] MEDS: METOPROLOL TARTRATE 50 MG TAB PO (08:39)
[2021-04-15] MEDS: ISOSORBIDE MONONITRATE 60 MG TAB.ER.24H 120 MG PO (08:39)
[2021-04-15] MEDS: ISOSORBIDE MONONITRATE 30 MG TAB.ER.24H PO (08:39)
[2021-04-15 08:40] LABS: Glucose Point of Care 180 mg/dl (65-105)
[2021-04-15] MEDS: CITALOPRAM HYDROBROMIDE 20 MG TABLET PO (08:40)
[2021-04-15] MEDS: guaiFENesin 12 HR 600 MG TABCR PO (08:40)
[2021-04-15] MEDS: SACUBITRIL/VALSARTAN 24-26 MG TABLET 1 TAB PO (08:40)
[2021-04-15] MEDS: ASPIRIN 81 MG ENTERIC TABLET PO (08:41)
[2021-04-15] MEDS: ATORVASTATIN 20 MG TABLET PO (08:41)
[2021-04-15] MEDS: CLOPIDOGREL BISULFATE 75 MG TABLET PO (08:41)
[2021-04-15 09:11] LABS: Basophils Percent Auto 0.3 % (0.2-1.2); Eosinophils Absolute Auto 0.3 K/mm3 (0-0.3); Eosinophils Percent Auto 3.8 % (0-4.4); Hematocrit 44.8 % (42.0-52.0); Hemoglobin 15.1 g/dL (14.0-18.0); Immature Granulocyte Absolute 0.07 K/mm3 (0.00-0.031); Immature Granulocyte Percent A 0.9 % (0-0.5); Lymphocytes Percent Auto 10.2 % (18.3-44.2); Mean Corpuscular HGB Conc 33.7 g/dl (32-36); Mean Corpuscular Hemoglobin 30.6 pg (26-34); Mean Corpuscular Volume 90.7 fl (80-100); Mean Platelet Volume 10.2 fl (7.4-10.4); Monocytes Absolute Auto 0.8 K/mm3 (0.1-0.6); Monocytes Percent Auto 9.8 % (2.6-8.5); Neutrophils Absolute Auto 5.9 K/mm3 (1.3-6.7); Platelet Count Result 271 k/mm3 (150-375); Red Blood Count 4.94 M/mm3 (4.6-6.20); Red Cell Distribution Width 13.8 % (11.5-14.5); White Blood Count 7.9 K/mm3 (4.5-10.0)
[2021-04-15 11:30] VITALS: PULSE 64; O2SAT 93
[2021-04-15 11:32] VITALS: PULSE 79; O2SAT 92
[2021-04-15 11:35] VITALS: PULSE 69; O2SAT 94
--- NOTE | 2021-04-15 11:41 | PM.DS ---
DS: Admitting Diagnosis Discharge Date 04/15/21 Admitting Diagnosis pna DS: Discharge Diagnosis Discharge Diagnosis (1) Pneumonia: Code(s): J18.9 - Pneumonia, unspecified organism Status: Acute Assessment and Plan: CT of the lungs show significant pneumonia of the right lung consistent with bacterial pneumonia -he received ceftriaxone and finished azithromycin while hospitalized. He was sent home on cefdinir -blood cultures negative -COVID-19 and Influenza negative -Legionella urine antigen pending -d-dimer elevated no PE or lower extremity DVTs on imaging -CXR w/ worsening pneumonia but pt continues to improve clinically -spoke with the patient and about follow-up with primary care physician. They need to request a chest x-ray in about 4 weeks. (2) CAD (coronary artery disease): Code(s): I25.10 - Atherosclerotic heart disease of [place] coronary artery without angina pectoris Status: Chronic Assessment and Plan: No chest pain. Continue with Entresto, aspirin, atorvastatin, metoprolol, and Plavix (3) Congestive heart failure: Code(s): I50.9 - Heart failure, unspecified Status: Chronic Assessment and Plan: Patient appears euvolemic. -continue Entresto, metoprolol, aspirin, atorvastatin and isosorbide (4) Essential (primary) hypertension: Code(s): I10 - Essential (primary) hypertension Status: Chronic Assessment and Plan: Last blood pressure 137/59 (5) Type 1 diabetes mellitus maturity onset: Code(s): E10.9 - Type 1 diabetes mellitus without complications Status: Chronic Assessment and Plan: Last glucose at discharge 78 -his diabetes is under control at home with an A1c of 6.1 -continue home regimen (6) Restless leg syndrome: Code(s): G25.81 - Restless legs syndrome Status: Chronic Assessment and Plan: Continue with continue with ropinirole (7) Mixed hyperlipidemia: Code(s): E78.2 - Mixed hyperlipidemia Status: Chronic Assessment and Plan: Continue with atorvastatin (8) Depression with anxiety: Code(s): F41.8 - Other specified anxiety disorders Status: Chronic Assessment and Plan: Chronic and controlled. Continue with Celexa (9) Hyponatremia: Code(s): E87.1 - Hypo-osmolality and hyponatremia Status: Acute Assessment and Plan: 133---improved -could be due to acute illness -not on any diuretics -urine sodium 5 -legionella on ddx -records in EMR show a sodium of 140 on 08/14/20 -also on citalopram, could be contributing (10) Transaminitis: Code(s): R74.01 - Elevation of levels of liver transaminase levels Status: Acute Assessment and Plan: Liver enzymes were elevated during his stay and were stable at discharge. I had a long discussion with the patient and about this. They are going to get repeat labs in 2 weeks and will talk to the [place] doctor about obtaining this. No history of hepatitis or alcohol abuse. He appears stable so I believe this can be further worked up outpatient if they continue to be high at side of his acute illness. DS: Summary Hospital Course Hospital Course: DOS 04/15/21 Patient is a 75-year-old male with a history of coronary artery disease, type 1 diabetes she and CHF who presented emergency room for fever, body aches and cough. Vitals in the ER were temperature 37.7? C, pulse 73, respiratory rate 18, blood pressure 132/50, pulse ox 95 on room air. Initial white blood cell count 13.7, hemoglobin 15.3, hematocrit 46.4, platelets 143. BMP showed a creatinine 1.5, glucose 332, sodium 131. Inflammatory markers elevated UA not indicative of UTI. It does have a little bit of blood in it which is likely due to fever and acute illness. Influenza screen negative. Chest x-ray shows right basilar airspace disease compatible with pneumonia. Mannie
--- NOTE | 2021-04-15 12:02 | HOMEO2EVAL ---
Evaluation was performed at [facility] Home Oxygen Evaluation RC: Home Oxygen (O2) Evaluation Start: 04/14/21 13:56 Freq: ONCE Status: Active Protocol: RPE Activity Type Activity Date Activity User E-Sign Co-Sign Detail Recorded Client Recorded Date Recorded By Document 04/15/21 11:30 KRM [id number] 04/15/21 12:01 KRM Document 04/15/21 11:32 KRM [email or web address] 04/15/21 12:01 KRM Document 04/15/21 11:35 KRM [email or web address] 04/15/21 12:01 KRM 04/15/21 04/15/21 04/15/21 11:30 11:32 11:35 Home O2 Evaluation Test Phase Resting Exercise Exercise Oxygen Delivery Room Air Room Air Room Air Pulse Oximetry (90-100 %) 93 92 94 Pulse Rate (60-100 beats/min) 64 79 69 Activity Tolerance Good Good Ambulation Distance (feet) 200 Home Oxygen Evaluation Comments NO HOME OXYGEN NEEDED Treatment Charges O2 Evaluation - Inpatient
[2021-04-15 12:18] LABS: Alanine Aminotransferase 83 U/L (4-50); Albumin Level 3.2 g/dL (3.5-5.1); Alkaline Phosphatase 169 U/L (38-126); Aspartate Amino Transferase 94 U/L (17-59); Bilirubin,Total 0.9 mg/dL (0.2-1.3)
[2021-04-15 12:27] LABS: Glucose Point of Care 78 mg/dl (65-105)
[2021-04-15 19:27] LABS: Pneumococcal Antigen Urine Not Detected (Not Detected)
--- NOTE | 2021-04-16 08:36 | PC.NURSE ---
Blood cx are negative Urine pneumococcal is negative.
[2021-04-16 23:59] LABS: Legionella pneumophila Ag Ur Detected (Not Detected)
--- NOTE | 2021-04-17 10:18 | PC.NURSE ---
Blood cx are negative. Urine legionella is positive. YOSI Odom aware.
== END 2021-04-15 14:00 | disposition home or self-care (01) | DRG 194 ==
LOC: ANHED 15:28 → ANH3MEDSUR 16:14
PROVIDERS: Nurse Practitioner; Physician Assistant; Admitting Provider Internal Medicine; Emergency Provider Emergency Medicine; PCP Family Medicine; Visit Provider Physician Assistant
DX: J15.9 Unspecified bacterial pneumonia (principal); E87.1 Hypo-osmolality and hyponatremia; Z20.822 Contact with and (suspected) exposure to COVID-19; I25.10 Atherosclerotic heart disease of native coronary artery without angina pectoris; E10.65 Type 1 diabetes mellitus with hyperglycemia; I11.0 Hypertensive heart disease with heart failure; I50.9 Heart failure, unspecified; G25.81 Restless legs syndrome; E78.2 Mixed hyperlipidemia; F41.8 Other specified anxiety disorders; R74.01 Elevation of levels of liver transaminase levels; Z79.4 Long term (current) use of insulin; Z79.82 Long term (current) use of aspirin; Z79.899 Other long term (current) drug therapy; Z95.0 Presence of cardiac pacemaker
CPT/HCPCS: 36415; 71045; 71275; 80048; 80053; 80076; 81001; 82010; 82728; 82948; 83036; 83615; 84100; 84300; 84443; 85025; 85027; 85380; 86140; 87040; 87449; 87804; 87899; 93306; 93970; 94618; 94640; 99285; A9270; C9803; J0456; J0696; J1650; J1815; J7120; Q9967; U0003; U0005

== ENCOUNTER 2021-06-07 15:33 | Emergency (ER) | payer MEDICARE, OTHER, SELFPAY ==
[2021-06-07 15:42] VITALS: BP 160/63; PULSE 59; RESP 16; TEMP 36.7; O2SAT 99
--- NOTE | 2021-06-07 16:06 | ED.NECK ---
HPI - Neck Pain/Injury General Chief Complaint: Extremity Injury, Upper Stated Complaint: neck and top of right shoulder pain Time Seen by Provider: 06/07/21 15:56 Source: patient and RN notes reviewed Mode of arrival: ambulatory Limitations: no limitations History of Present Illness HPI Narrative: Patient presents today complaining of right-sided neck pain that radiates to the top of the right shoulder. Reports pain was present upon waking this morning. Pain has been constant with occasional muscle spasms to the area. Denies numbness or tingling to the extremities. Denies radiation of the pain down the arm or hand. Currently rates his constant pain 5/10, with the spasms he rates a 10/10. He took some Tylenol at 930 this morning without relief. MD complaint: neck pain Related Data Home Medications Medication Instructions Recorded Confirmed aspirin 81 mg tablet,delayed 81 mg PO DAILY 07/14/19 06/07/21 release isosorbide mononitrate 60 mg 120 mg PO DAILY 07/14/19 06/07/21 tablet,extended release 24 hr metoprolol tartrate 50 mg tablet 50 mg PO BID tablet 07/14/19 06/07/21 atorvastatin 20 mg tablet 20 mg PO DAILY 08/24/20 06/07/21 cholecalciferol (vitamin D3) 50 50 mcg PO DAILY 08/24/20 06/07/21 mcg (2,000 unit) tablet clopidogrel 75 mg tablet 75 mg PO DAILY 08/24/20 06/07/21 diphenhydramine 25 1 tablet PO QHS PRN 08/24/20 06/07/21 mg-acetaminophen 500 mg tablet insulin glargine 100 unit/mL 34 unit SUB-Q DAILY ml 08/24/20 06/07/21 subcutaneous solution insulin lispro 100 unit/mL See Rx Instructions SUBCUT DAILY 08/24/20 06/07/21 subcutaneous pen ml isosorbide mononitrate 30 mg 30 mg PO DAILY 08/24/20 06/07/21 tablet,extended release 24 hr ropinirole 1 mg tablet 1 mg PO DAILY tablet 08/24/20 06/07/21 sacubitril 49 mg-valsartan 51 mg 0.5 tablet PO BID tablet 08/24/20 06/07/21 tablet citalopram 20 mg PO DAILY 04/10/21 06/07/21 Allergies Allergy/AdvReac Type Severity Reaction Status Date / Time levofloxacin Allergy Unknown Muscle Verified 06/07/21 15:52 Spasms lisinopril AdvReac Unknown High Verified 06/07/21 15:52 potassium Review of Systems Review of Systems: CONSTITUTIONAL: Denies body aches, fever, chills, or sweats. EYES: Denies visual changes, redness, or discharge. ENT: Denies rhinorrhea, congestion, sore throat, or otalgia. CARDIOVASCULAR: Denies chest pain, palpitations, or edema. RESPIRATORY: Denies cough or dyspnea. GASTROINTESTINAL: Denies abdominal pain, nausea, vomiting, or diarrhea. GENITOURINARY: Denies dysuria or hematuria. SKIN: Denies rash, itching, or wounds. MUSCULOSKELETAL: Denies back pain, joint pain. + Neck pain NEUROLOGIC: Denies headache, numbness, tingling, or weakness. PSYCH: Denies depression or anxiety. [facility] Past Medical History Medical History CAD (coronary artery disease) Cardiac pacemaker Congestive heart failure Depression with anxiety Essential (primary) hypertension Heart block Complete heart block requiring a pacemaker Impacted cerumen of right ear Mixed hyperlipidemia Restless leg syndrome Type 1 diabetes mellitus maturity onset Surgical History Surgical History H/O percutaneous transluminal coronary angioplasty H/O vasectomy History of coronary artery stent placement X8 Family History Family History Grandparent Diabetes mellitus Hypertension Family history of coronary artery disease Sibling Hypertension Mother Family history of elevated blood lipids Family history of coronary artery disease Hypertension Family history of cardiovascular disease Father Family history of coronary artery disease Family history of elevated blood lipids Hypertension Family history of cardiovascular disease Social History Social History (Reviewed 06/07/21
== END 2021-06-07 16:17 | disposition home or self-care (01) ==
PROVIDERS: Emergency Provider Nurse Practitioner
DX: M43.6 Torticollis (principal); I25.10 Atherosclerotic heart disease of native coronary artery without angina pectoris; I11.0 Hypertensive heart disease with heart failure; I50.9 Heart failure, unspecified; Z95.0 Presence of cardiac pacemaker; E78.2 Mixed hyperlipidemia; G25.81 Restless legs syndrome; E10.9 Type 1 diabetes mellitus without complications; Z98.52 Vasectomy status; Z95.5 Presence of coronary angioplasty implant and graft
CPT/HCPCS: 99213; G0463

== ENCOUNTER 2021-11-19 20:59 | Emergency (ER) | payer MEDICARE, OTHER, SELFPAY ==
[2021-11-19 21:24] VITALS: BP 160/62; PULSE 78; RESP 16; TEMP 37.5; O2SAT 100
--- NOTE | 2021-11-19 22:36 | PC.NURSE ---
Pt aox3 states I feel good enough to follow up with my doctor tomorrow .
== END 2021-11-19 22:53 | disposition left against medical advice (07) ==
PROVIDERS: PCP Family Medicine
DX: R06.02 Shortness of breath (principal)
CPT/HCPCS: 99199

== ENCOUNTER 2022-01-28 11:56 | Outpatient (CLI) | payer MEDICARE, OTHER, SELFPAY ==
[2022-01-28 19:17] LABS: LDL Cholesterol Direct 43 mg/dL
[2022-01-28 19:18] LABS: Creatinine Urine 102.4 mg/dL
[2022-01-28 19:23] LABS: Hemoglobin A1C 6.2 % (<5.7)
[2022-01-28 19:32] LABS: Prostate Specific Antigen 4.2 ng/mL (< OR = 4.0)
[2022-01-28 19:41] LABS: Vitamin D 25 Hydroxy 56.5 ng/mL
[2022-01-28 19:44] LABS: MALB Creatinine Ratio 115.4 mg/g (0-30); Microalbumin Urine Random 118.2 mg/L (0-16.7)
[2022-01-28 20:54] LABS: Alanine Aminotransferase 20 U/L (6-50); Alkaline Phosphatase 123 U/L (38-126); Anion Gap 8 mmol/L (8-16); Aspartate Amino Transferase 34 U/L (17-59); Blood Urea Nitrogen 29 mg/dL (9-20); Calcium 9.3 mg/dL (8.4-10.2); Carbon Dioxide 31 mmol/L (22-30); Chloride 101 mmol/L (98-107); Cholesterol 113 mg/dL (0-200); Estimated Glomerular Filt Rate > 60; Glucose 40 mg/dL (65-110); HDL Direct 47 mg/dL; Potassium 4.2 mmol/L (3.4-5.0); Sodium 140 mmol/L (137-145); Triglycerides 86 mg/dL (<150)
== END 2022-01-28 11:57 | disposition home or self-care (01) ==
LOC: ANHGOSHLAB 11:58
PROVIDERS: PCP Family Medicine; Visit Provider Nurse Practitioner
DX: E78.2 Mixed hyperlipidemia (principal); E10.65 Type 1 diabetes mellitus with hyperglycemia; E55.9 Vitamin D deficiency, unspecified; Z12.5 Encounter for screening for malignant neoplasm of prostate; I25.110 Atherosclerotic heart disease of native coronary artery with unstable angina pectoris
CPT/HCPCS: 36415; 80053; 80061; 82043; 82306; 83036; 84153; G0103

== ENCOUNTER 2022-05-15 17:32 | Outpatient (CLI) | payer MEDICARE, OTHER, SELFPAY ==
[2022-05-15 18:48] LABS: Influenza A QL RT-PCR Negative (Negative); Influenza B QL RT-PCR Negative (Negative); RSV RNA, RT-PCR Negative (Negative); SARS-CoV-2 RNA PCR Negative
== END 2022-05-15 17:33 | disposition home or self-care (01) ==
LOC: ANHLAB 17:34
PROVIDERS: PCP Family Medicine; Visit Provider Family Medicine
DX: J06.9 Acute upper respiratory infection, unspecified (principal); Z20.822 Contact with and (suspected) exposure to COVID-19
CPT/HCPCS: 87637

== ENCOUNTER 2022-09-12 11:58 | Emergency (ER) | payer MEDICARE, OTHER, SELFPAY ==
[2022-09-12 12:10] VITALS: BP 142/67; PULSE 54; RESP 16; TEMP 36.6; O2SAT 100
[2022-09-12 12:11] VITALS: BP 142/67; PULSE 54; RESP 16; TEMP 36.6; O2SAT 100
--- NOTE | 2022-09-12 12:24 | ED.BACK ---
HPI - Back Pain/Injury General Chief Complaint: Back Pain/Injury Stated Complaint: SPAMS Time Seen by Provider: 09/12/22 12:24 Source: patient, RN notes reviewed and old records reviewed Mode of arrival: ambulatory Limitations: no limitations History of Present Illness HPI Narrative: 77-year-old male presents to the [facility] with spasms to the right lower back. Patient states it started on Thursday when he went to lift a plant out of a car. Has been taking Tylenol. states that the spasming in the upper butt cheek, right lower back is worse than the left but still has a spasming feeling. No loss retention of bowel or bladder. Walks with a normal gait. Denies saddle anesthesia. Related Data Home Medications Medication Instructions Recorded Confirmed aspirin 81 mg tablet,delayed 81 mg PO DAILY 07/14/19 09/12/22 release metoprolol tartrate 50 mg tablet 50 mg PO BID 07/14/19 09/12/22 atorvastatin 20 mg tablet 20 mg PO DAILY 08/24/20 09/12/22 cholecalciferol (vitamin D3) 50 50 mcg PO DAILY 08/24/20 09/12/22 mcg (2,000 unit) tablet insulin glargine 100 unit/mL 34 unit subcut DAILY 08/24/20 09/12/22 subcutaneous solution (Lantus U-100 Insulin) ropinirole 1 mg tablet 1 mg PO DAILY 08/24/20 09/12/22 sacubitril 49 mg-valsartan 51 mg 0.5 tablet PO BID 08/24/20 09/12/22 tablet gabapentin 100 mg capsule 100 mg PO TID 06/07/21 09/12/22 isosorbide mononitrate 120 mg 120 mg PO DAILY 10/31/21 09/12/22 tablet,extended release 24 hr insulin lispro 100 unit/mL 25 unit subcut QID 01/28/22 09/12/22 subcutaneous solution (Humalog U-100 Insulin) diphenhydramine 25 1 tablet PO HS 09/12/22 09/12/22 mg-acetaminophen 500 mg tablet (Tylenol PM Extra Strength) Allergies Allergy/AdvReac Type Severity Reaction Status Date / Time levofloxacin Allergy Unknown Muscle Verified 09/12/22 12:08 Spasms lisinopril AdvReac Unknown High Verified 09/12/22 12:08 potassium Review of Systems Review of Systems: All systems reviewed & are unremarkable except as noted in HPI and below Constitutional: Constitutional: Reports no additional constitutional complaints Eyes: Eyes: Reports no additional eye complaints ENT: Reports system reviewed and no additional complaints, except as documented Cardiovascular: Cardiovascular: Reports no additional cardiovascular complaints, Denies chest pain and Denies dyspnea Respiratory: Respiratory: Reports no additional respiratory complaints, Denies chest congestion, Denies cough and Denies dyspnea Gastrointestinal: Gastrointestinal: Reports no additional gastrointestinal complaints, Denies abdominal pain, Denies nausea and Denies vomiting Musculoskeletal: Musculoskeletal: Reports as per HPI Integumentary/Breasts: Skin/Breast: Reports system reviewed and no additional complaints, except as docu Neurologic: Reports system reviewed and no additional complaints, except as documented Psychiatric: Psychiatric: Reports no additional psychiatric complaints Allergic/Immunologic: Allergic/Immunologic: Reports no additional allergic/immunologic complaints PMFSH Past Medical History Medical History CAD (coronary artery disease) Cardiac pacemaker Congestive heart failure Depression with anxiety Essential (primary) hypertension Heart block Complete heart block requiring a pacemaker Impacted cerumen of right ear Mixed hyperlipidemia Restless leg syndrome Soft tissue injury of back Strain of left shoulder Type 1 diabetes mellitus maturity onset Surgical History Surgical History H/O percutaneous transluminal coronary angioplasty H/O vasectomy History of coronary artery stent placement X8 Family History Family History Grandparent Diabetes mellitus Hypertension Family history of coronary artery disease Sibling
== END 2022-09-12 12:37 | disposition home or self-care (01) ==
PROVIDERS: Emergency Provider Nurse Practitioner; PCP Family Medicine
DX: M62.830 Muscle spasm of back (principal); S39.012A Strain of muscle, fascia and tendon of lower back, initial encounter; X50.0XXA Overexertion from strenuous movement or load, initial encounter; I25.10 Atherosclerotic heart disease of native coronary artery without angina pectoris; I11.0 Hypertensive heart disease with heart failure; I50.9 Heart failure, unspecified; E10.9 Type 1 diabetes mellitus without complications; E78.2 Mixed hyperlipidemia; G25.81 Restless legs syndrome; Z95.0 Presence of cardiac pacemaker; Z95.5 Presence of coronary angioplasty implant and graft; Z98.52 Vasectomy status; Z79.82 Long term (current) use of aspirin; Z79.4 Long term (current) use of insulin
CPT/HCPCS: 99213; G0463

== ENCOUNTER 2022-10-18 21:13 | Emergency (ER) | payer MEDICARE, OTHER, SELFPAY ==
[2022-10-18] VITALS (13 sets, daily range): BP systolic 154–177; BP diastolic 56–69; PULSE 50–55; RESP 11–17; TEMP 37.1; O2SAT 98
--- NOTE | ~2022-10-18 | XR_ITS ---
EXAMINATION: XR chest 2V DATE: 10/18/2022 22:03 INDICATION: Left-sided chest pain TECHNIQUE: PA and lateral views of the chest are obtained. COMPARISON: 04/14/2021 FINDINGS: The lungs are free of acute opacities. No pleural effusion or pneumothorax. The cardiomedia stinal silhouette is normal. There is mild thoracic spondylosis. There has been interval placement of a pacemaker in the right chest wall. The left chest wall pacemaker has been removed however its lead s remain in position. IMPRESSION: 1. No acute cardiopulmonary abnormality. Reviewed, dictated and finalized at location A.
--- NOTE | 2022-10-18 21:20 | ECG_ITS ---
Measurements Intervals [place] Rate: 49 P: 178 MT: 122 QRS: -85 QRSD: 171 T: 85 QT: 515 QTc: 469 Interpretive Statements ELECTRONIC ATRIAL PACEMAKER ELECTRONIC VENTRICULAR PACEMAKER NO FURTHER INTERPRETATION IS POSSIBLE ATYPICAL ECG NO PREVIOUS ECG AVAILABLE FOR COMPARISON Electronically Signed On 10-18-2022 21:46:12 CDT by Jed Ramos D.O.
[2022-10-18 21:34] LABS: Basophils Percent Auto 0.4 % (0.2-1.2); Eosinophils Absolute Auto 0.1 K/mm3 (0-0.3); Eosinophils Percent Auto 2.7 % (0-4.4); Hematocrit 47.4 % (42.0-52.0); Immature Granulocyte Absolute 0.01 K/mm3 (0.00-0.031); Immature Granulocyte Percent A 0.2 % (0-0.5); Immature Platelet Fraction Pct 2.8 % (0.9-11.2); Lymphocytes Absolute Auto 1.07 K/mm3 (0.9-3.2); Mean Corpuscular HGB Conc 31.6 g/dl (32-36); Mean Corpuscular Hemoglobin 29.8 pg (26-34); Mean Platelet Volume 10.7 fl (7.4-10.4); Monocytes Absolute Auto 0.5 K/mm3 (0.1-0.6); Monocytes Percent Auto 9.5 % (2.6-8.5); Neutrophils Absolute Auto 3.2 K/mm3 (1.3-6.7); Neutrophils Percent Auto 65.2 % (45.5-73.1); Platelet Count Result 143 k/mm3 (150-375); Red Blood Count 5.04 M/mm3 (4.6-6.20); Red Cell Distribution Width 14.1 % (11.5-14.5); White Blood Count 4.9 K/mm3 (4.5-10.0)
[2022-10-18 21:43] LABS: Alanine Aminotransferase 31 U/L (6-50); Albumin Level 3.9 g/dL (3.5-5.1); Alkaline Phosphatase 122 U/L (38-126); Anion Gap 3 mmol/L (8-16); Aspartate Amino Transferase 35 U/L (17-59); Bilirubin,Total 1.1 mg/dL (0.2-1.3); Blood Urea Nitrogen 21 mg/dL (9-20); Calcium 8.5 mg/dL (8.4-10.2); Carbon Dioxide 33 mmol/L (22-30); Chloride 101 mmol/L (98-107); Estimated CRCL calculation 53 ml/min; Estimated Glomerular Filt Rate > 60; Glucose 212 mg/dL (65-110); Lipase 40 U/L (23-300); Potassium 4.7 mmol/L (3.4-5.0); Sodium 137 mmol/L (137-145)
[2022-10-18 21:44] LABS: Prothrombin Time 13.3 Seconds (11.1-14.7)
[2022-10-18 21:45] LABS: Partial Thromboplastin Time 25.2 SECONDS (22.3-36.8)
[2022-10-18 21:55] LABS: Troponin I < 0.012 ng/mL (0.000-0.034)
[2022-10-19] VITALS: PULSE 50; RESP 12
[2022-10-19 00:01] VITALS: BP 157/65; PULSE 50; RESP 18
[2022-10-19 00:44] LABS: Troponin I < 0.012 ng/mL (0.000-0.034)
--- NOTE | 2022-10-19 00:59 | ED.GENADULT ---
HPI - General Adult General Chief complaint: Chest Pain Stated complaint: chest pain Time Seen by Provider: 10/18/22 21:51 History of Present Illness HPI narrative: Patient is a 77-year-old gentleman who presents the emergency department with chief complaint of chest pain. Patient states that several days ago he was at a track meet and was hit in the chest with a discus the patient states that initially did not really hurt that much he completed the rest of the event and then went home and the patient states that several days later he started having an aching sensation in his chest that is worse with movement and worse with inspiration. Patient states that he has history of cardiac disease and does have a pacemaker in his chest the patient states that did not strike the pacemaker and reports that he had no syncope to date patient does report that he has history of pericarditis in the past. Related Data Home Medications Medication Instructions Recorded Confirmed aspirin 81 mg tablet,delayed 81 mg PO DAILY 07/14/19 10/03/22 release metoprolol tartrate 50 mg tablet 50 mg PO BID 07/14/19 10/03/22 atorvastatin 20 mg tablet 20 mg PO DAILY 08/24/20 10/03/22 cholecalciferol (vitamin D3) 50 50 mcg PO DAILY 08/24/20 10/03/22 mcg (2,000 unit) tablet insulin glargine 100 unit/mL 34 unit subcut DAILY 08/24/20 10/03/22 subcutaneous solution (Lantus U-100 Insulin) ropinirole 1 mg tablet 1 mg PO DAILY 08/24/20 10/03/22 sacubitril 49 mg-valsartan 51 mg 0.5 tablet PO BID 08/24/20 10/03/22 tablet gabapentin 100 mg capsule 100 mg PO TID 06/07/21 10/03/22 isosorbide mononitrate 120 mg 120 mg PO DAILY 10/31/21 10/03/22 tablet,extended release 24 hr insulin lispro 100 unit/mL 25 unit subcut QID 01/28/22 10/03/22 subcutaneous solution (Humalog U-100 Insulin) diphenhydramine 25 1 tablet PO HS 09/12/22 10/03/22 mg-acetaminophen 500 mg tablet (Tylenol PM Extra Strength) Allergies Allergy/AdvReac Type Severity Reaction Status Date / Time levofloxacin Allergy Unknown Muscle Verified 10/18/22 21:51 Spasms lisinopril AdvReac Unknown High Verified 10/18/22 21:51 potassium Review of Systems Review of Systems: A 10 system review of systems was completed on the patient and is negative except for what is stated in the HPI. Nursing and ancillary documentation was reviewed. [facility] Past Medical History Medical History CAD (coronary artery disease) Cardiac pacemaker Congestive heart failure Depression with anxiety Essential (primary) hypertension Heart block Complete heart block requiring a pacemaker Impacted cerumen of right ear Mixed hyperlipidemia Restless leg syndrome Soft tissue injury of back Strain of left shoulder Type 1 diabetes mellitus maturity onset Surgical History Surgical History H/O percutaneous transluminal coronary angioplasty H/O vasectomy History of coronary artery stent placement X8 Family History Family History Grandparent Diabetes mellitus Hypertension Family history of coronary artery disease Sibling Hypertension Mother Family history of elevated blood lipids Family history of coronary artery disease Hypertension Family history of cardiovascular disease Father Family history of coronary artery disease Family history of elevated blood lipids Hypertension Family history of cardiovascular disease Social History Social History Social History: The patient is and lives with his . He has 2 children. The patient is retired from working for [employer]. The patient states that he is a lifelong nonsmoker does not use any marijuana alcohol or illicit drugs. His is the durable
== END 2022-10-19 01:19 | disposition home or self-care (01) ==
PROVIDERS: Emergency Medicine; Emergency Provider Emergency Medicine; PCP Family Medicine
DX: S20.219A Contusion of unspecified front wall of thorax, initial encounter (principal); R07.89 Other chest pain; I25.10 Atherosclerotic heart disease of native coronary artery without angina pectoris; I50.9 Heart failure, unspecified; I11.0 Hypertensive heart disease with heart failure; E78.2 Mixed hyperlipidemia; G25.81 Restless legs syndrome; E10.8 Type 1 diabetes mellitus with unspecified complications; Z95.0 Presence of cardiac pacemaker; Z95.5 Presence of coronary angioplasty implant and graft; Z79.4 Long term (current) use of insulin; Z79.82 Long term (current) use of aspirin; W21.89XA Striking against or struck by other sports equipment, initial encounter; Y93.82 Activity, spectator at an event
CPT/HCPCS: 36415; 71046; 80053; 83690; 84484; 85025; 85055; 85610; 85730; 93005; 99284

== ENCOUNTER → 2022-11-07 14:08 | Outpatient (CLI) | payer MEDICARE, SELFPAY ==
--- NOTE | ~2022-11-07 | XR_ITS ---
XR lumbar spine 2-3V DATE: 11/07/2022 14:26 INDICATION: Low back pain. No injury. TECHNIQUE: AP, lateral, coned lateral lumbosacral views COMPARISON: None FINDINGS: There is osteopenia. Normal alignment of the lumbar vertebrae. No fracture or bone destruction or spondylolisthesis. The i ncluded lower thoracic and lumbar pedicles are intact. Mild degenerative disc disease at L2-3, L3-4 and mild/moderate degenerative disease at L4-5. The sacroiliac joints are intact. Abdominal aortic calcification without evidence of aneurysm. IMPRESSION: Mild to moderate multilevel degenerative disc disease Reviewed, dictated and finalized at location []
== END ==
PROVIDERS: PCP Family Medicine; Visit Provider Nurse Practitioner Family
DX: M51.36 Other intervertebral disc degeneration, lumbar region (principal)
CPT/HCPCS: 72100

== ENCOUNTER 2022-11-19 07:19 | Emergency (ER) | payer MEDICARE, OTHER, SELFPAY ==
[2022-11-19] VITALS (10 sets, daily range): BP systolic 117–166; BP diastolic 59–90; PULSE 63–68; RESP 12–24; TEMP 36.7; O2SAT 94–97
--- NOTE | ~2022-11-19 | XR_ITS ---
XR chest 2V 11/19/2022 08:01 Indication: Left-sided chest pain. Procedure: PA and lateral views of the chest Comparison: Comparison to multiple prior studies sequentially, with oldest reviewed study dated 11/29. Findings: Heart size normal. Pacemaker leads are stable. No focal air space disease, pulmonary edema, pleural effusion or suspected pneumothorax. Impression: 1: No acute cardiopulmonary disease. Reviewed, dictated and finalized at location [] Impression: 1: No acute cardiopulmonary disease.
--- NOTE | ~2022-11-19 | CT_ITS ---
EXAMINATION: CTA chest PE protocol DATE: 11/19/2022 09:22 CDT INDICATION: Pulmonary embolism TECHNIQUE: Computed tomographic angiography (CTA) of the chest was performed with 100 mL Omnipaque-35 0 intravenous contrast. The dose-length product was 431.95 mGy-cm. Maximum intensity projection 3D-re constructions of the aorta and other arteries were constructed by the technologist on a separate work station. Automated exposure control and iterative reconstruction technique were employed. COMPARISON: CT dated 04/11/2021 FINDINGS: Study is technically adequate without evidence for pulmonary embolism. No significant pleur al effusion. No evidence for aortic aneurysm or dissection. Small pericardial effusion. Cardiomegaly. No thoracic lymphadenopathy. No focal airspace consolidation. There is dependent atelectasis. No end obronchial lesions. No pneumothorax. No suspicious pulmonary nodules or masses. Mild thoracic spondyl osis. No acute osseous abnormality. There are calcified granulomas of the spleen. There is a 9.5 cm r ight renal cyst. IMPRESSION: 1. No acute cardiopulmonary disease. No evidence for pulmonary embolism. 2: Small pericardial effusion. Reviewed, dictated and finalized at location []
--- NOTE | 2022-11-19 07:21 | ECG_ITS ---
Measurements Intervals Bliss Rate: 63 P: 51 RI: 155 QRS: -88 QRSD: 167 T: 79 QT: 504 QTc: 516 Interpretive Statements ELECTRONIC VENTRICULAR PACEMAKER ABNORMAL RHYTHM ECG COMPARED TO ECG 10/18/2022 21:22:30 NO SIGNIFICANT CHANGES Electronically Signed On 11-19-2022 14:15:47 CDT by Karla Quijano M.D.
--- NOTE | 2022-11-19 07:40 | ED.CHESTPAIN ---
HPI - Chest Pain General Chief Complaint: Chest Pain Stated Complaint: CP History of Present Illness HPI narrative: Patient is a 77-year-old male with history of pericarditis and third-degree heart block who presents to the ER with left-sided chest pain. Began at his collarbone which she reports has been occurring since he was a young child. It then began to move down over his pectoralis and centrally. Worse with movement and deep breath. Reports he was struck by discus 1 month ago and had some pain after that but it had resolved. He also reports some chronic back spasms in his buttock and low back. No lower extremity numbness or weakness. No fevers or chills or sweats. Unsure if he has exertional chest discomfort. Denies alleviating factors. No dyspnea. No diaphoresis/nausea/vomiting. Related Data Home Medications Medication Instructions Recorded Confirmed aspirin 81 mg tablet,delayed 81 mg PO DAILY 07/14/19 10/03/22 release metoprolol tartrate 50 mg tablet 50 mg PO BID 07/14/19 10/03/22 atorvastatin 20 mg tablet 20 mg PO DAILY 08/24/20 10/03/22 cholecalciferol (vitamin D3) 50 50 mcg PO DAILY 08/24/20 10/03/22 mcg (2,000 unit) tablet insulin glargine 100 unit/mL 34 unit subcut DAILY 08/24/20 10/03/22 subcutaneous solution (Lantus U-100 Insulin) ropinirole 1 mg tablet 1 mg PO DAILY 08/24/20 10/03/22 sacubitril 49 mg-valsartan 51 mg 0.5 tablet PO BID 08/24/20 10/03/22 tablet isosorbide mononitrate 120 mg 120 mg PO DAILY 10/31/21 10/03/22 tablet,extended release 24 hr insulin lispro 100 unit/mL 25 unit subcut QID 01/28/22 10/03/22 subcutaneous solution (Humalog U-100 Insulin) diphenhydramine 25 1 tablet PO HS 09/12/22 10/03/22 mg-acetaminophen 500 mg tablet (Tylenol PM Extra Strength) Allergies Allergy/AdvReac Type Severity Reaction Status Date / Time levofloxacin Allergy Unknown Muscle Verified 11/07/22 13:36 Spasms lisinopril AdvReac Unknown High Verified 11/07/22 13:36 potassium Review of Systems Review of Systems: All systems reviewed & are unremarkable except as noted in HPI and below Constitutional: Constitutional: Denies chills, Denies fatigue and Denies fever(s) Cardiovascular: Cardiovascular: Reports chest pain, Denies rapid heart rate and Denies radiating jaw, neck or arm pain Respiratory: Respiratory: Denies cough, Denies dyspnea and Denies wheezing Gastrointestinal: Gastrointestinal: Denies abdominal pain, Denies nausea and Denies vomiting Musculoskeletal: Musculoskeletal: Reports back pain, Denies arthralgias, Denies joint swelling and Reports muscle cramps Integumentary/Breasts: Skin/Breast: Denies erythema and Denies rash PMFSH Past Medical History Medical History CAD (coronary artery disease) Cardiac pacemaker Congestive heart failure Depression with anxiety Essential (primary) hypertension Heart block Complete heart block requiring a pacemaker Impacted cerumen of right ear Mixed hyperlipidemia Restless leg syndrome Soft tissue injury of back Strain of left shoulder Type 1 diabetes mellitus maturity onset Surgical History Surgical History H/O percutaneous transluminal coronary angioplasty H/O vasectomy History of coronary artery stent placement X8 Family History Family History Grandparent Diabetes mellitus Hypertension Family history of coronary artery disease Sibling Hypertension Mother Family history of elevated blood lipids Family history of coronary artery disease Hypertension Family history of cardiovascular disease Father Family history of coronary artery disease Family history of elevated blood lipids Hypertension Family history of cardiovascular disease Social History Social History Social History: Th
[2022-11-19 07:43] LABS: Basophils Percent Auto 0.2 % (0.2-1.2); Eosinophils Absolute Auto 0.2 K/mm3 (0-0.3); Eosinophils Percent Auto 2.6 % (0-4.4); Hematocrit 49.1 % (42.0-52.0); Hemoglobin 15.4 g/dL (14.0-18.0); Immature Granulocyte Absolute 0.04 K/mm3 (0.00-0.031); Immature Granulocyte Percent A 0.5 % (0-0.5); Immature Platelet Fraction Pct 2.1 % (0.9-11.2); Lymphocytes Absolute Auto 1.03 K/mm3 (0.9-3.2); Lymphocytes Percent Auto 11.8 % (18.3-44.2); Mean Corpuscular HGB Conc 31.4 g/dl (32-36); Mean Corpuscular Hemoglobin 30.1 pg (26-34); Mean Corpuscular Volume 95.9 fl (80-100); Mean Platelet Volume 9.9 fl (7.4-10.4); Monocytes Absolute Auto 0.8 K/mm3 (0.1-0.6); Monocytes Percent Auto 9.4 % (2.6-8.5); Neutrophils Absolute Auto 6.6 K/mm3 (1.3-6.7); Neutrophils Percent Auto 75.5 % (45.5-73.1); Platelet Count Result 130 k/mm3 (150-375); Red Blood Count 5.12 M/mm3 (4.6-6.20); Red Cell Distribution Width 13.5 % (11.5-14.5); White Blood Count 8.7 K/mm3 (4.5-10.0)
[2022-11-19 07:51] LABS: Alanine Aminotransferase 29 U/L (6-50); Albumin Level 3.8 g/dL (3.5-5.1); Alkaline Phosphatase 158 U/L (38-126); Anion Gap 5 mmol/L (8-16); Aspartate Amino Transferase 37 U/L (17-59); Bilirubin,Total 0.8 mg/dL (0.2-1.3); Blood Urea Nitrogen 22 mg/dL (9-20); Calcium 8.2 mg/dL (8.4-10.2); Carbon Dioxide 33 mmol/L (22-30); Chloride 100 mmol/L (98-107); Estimated CRCL calculation 64 ml/min; Estimated Glomerular Filt Rate > 60; Glucose 116 mg/dL (65-110); Lipase 118 U/L (23-300); Potassium 3.7 mmol/L (3.4-5.0); Sodium 138 mmol/L (137-145)
[2022-11-19 07:56] LABS: INR 0.9; Prothrombin Time 12.8 Seconds (11.1-14.7)
[2022-11-19] MEDS: KETOROLAC 15 MG/ML VIAL (*BKC) IV PUSH (07:56)
[2022-11-19 07:57] LABS: Partial Thromboplastin Time 25.1 SECONDS (22.3-36.8)
[2022-11-19 08:02] LABS: Troponin I 0.014 ng/mL (0.000-0.034)
[2022-11-19 08:14] LABS: D Dimer 0.79 ug/mL (<0.48)
[2022-11-19 10:50] LABS: Troponin I < 0.012 ng/mL (0.000-0.034)
== END 2022-11-19 11:20 | disposition home or self-care (01) ==
PROVIDERS: Emergency Provider Emergency Medicine; PCP Family Medicine
DX: R09.1 Pleurisy (principal); I25.10 Atherosclerotic heart disease of native coronary artery without angina pectoris; I11.0 Hypertensive heart disease with heart failure; I50.9 Heart failure, unspecified; E10.9 Type 1 diabetes mellitus without complications; E78.2 Mixed hyperlipidemia; G25.81 Restless legs syndrome; Z95.0 Presence of cardiac pacemaker; Z95.5 Presence of coronary angioplasty implant and graft; Z79.4 Long term (current) use of insulin; Z79.82 Long term (current) use of aspirin
CPT/HCPCS: 36415; 71046; 71275; 80053; 83690; 84484; 85025; 85055; 85380; 85610; 85730; 93005; 96374; 99284; J1885; Q9967

== ENCOUNTER 2023-04-30 10:27 | Emergency (ER) | payer MEDICARE, OTHER, SELFPAY ==
--- NOTE | ~2023-04-30 | XR_ITS ---
XR chest 2V 04/30/2023 11:20 Indication: Cough for 2 weeks Procedure: 2 view chest Comparison: Comparison to multiple prior studies sequentially, with oldest reviewed study dated 04/01. Findings: Borderline heart size. Pacemaker leads are stable. No focal air space disease, pulmonary ed alex, pleural effusion or suspected pneumothorax. No acute osseous abnormality. Impression: 1: No acute cardiopulmonary disease. Reviewed, dictated and finalized at location L. GE GANG WEIGHER Impression: 1: No acute cardiopulmonary disease.
[2023-04-30 10:45] VITALS: BP 131/66; PULSE 55; RESP 16; TEMP 36.9; O2SAT 98
--- NOTE | 2023-04-30 10:55 | ED.URI ---
HPI - URI/Sore Throat General Chief Complaint: Upper Respiratory Infection Stated Complaint: Cough;Chest Congestion Time Seen by Provider: 04/30/23 10:55 Source: patient, RN notes reviewed and old records reviewed Mode of arrival: ambulatory Limitations: no limitations History of Present Illness HPI Narrative: 77-year-old male presents to the [facility] with complaints of cough and chest congestion intermittently for 2 weeks. Patient has a history of diabetes, heart disease, anxiety depression, high cholesterol. For Dexcom blood sugar 114 Patient's only complaint is a lingering cough for 2 weeks. Denies any chest pain. Was able to walk 3 miles today without any issue. Patient is concerned for pneumonia. Related Data Home Medications Medication Instructions Recorded Confirmed aspirin 81 mg tablet,delayed 81 mg PO DAILY 07/14/19 04/30/23 release metoprolol tartrate 50 mg tablet 50 mg PO BID 07/14/19 04/30/23 atorvastatin 20 mg tablet 20 mg PO DAILY 08/24/20 04/30/23 cholecalciferol (vitamin D3) 50 50 mcg PO DAILY 08/24/20 04/30/23 mcg (2,000 unit) tablet ropinirole 1 mg tablet 1 mg PO DAILY 08/24/20 04/30/23 sacubitril 49 mg-valsartan 51 mg 0.5 tablet PO BID 08/24/20 04/30/23 tablet diphenhydramine 25 1 tablet PO HS 09/12/22 04/30/23 mg-acetaminophen 500 mg tablet (Tylenol PM Extra Strength) gabapentin 300 mg capsule 100 mg PO TID 12/03/22 04/30/23 insulin glargine 100 unit/mL 45 unit subcut DAILY 12/03/22 04/30/23 subcutaneous solution (Lantus U-100 Insulin) insulin lispro 100 unit/mL 25 unit subcut .COMPLEX 12/03/22 04/30/23 subcutaneous solution (Humalog U-100 Insulin) isosorbide mononitrate 120 mg 100 mg PO DAILY 12/03/22 04/30/23 tablet,extended release 24 hr Allergies Allergy/AdvReac Type Severity Reaction Status Date / Time levofloxacin Allergy Unknown Muscle Verified 04/30/23 10:40 Spasms lisinopril AdvReac Unknown High Verified 04/30/23 10:40 potassium Review of Systems Review of Systems: All systems reviewed & are unremarkable except as noted in HPI and below Constitutional: Constitutional: Reports no additional constitutional complaints Eyes: Eyes: Reports no additional eye complaints ENT: Reports system reviewed and no additional complaints, except as documented Cardiovascular: Cardiovascular: Reports no additional cardiovascular complaints, Denies chest pain and Denies dyspnea Respiratory: Respiratory: Reports as per HPI, Denies chest congestion, Reports cough and Denies dyspnea Gastrointestinal: Gastrointestinal: Reports no additional gastrointestinal complaints, Denies abdominal pain, Denies nausea and Denies vomiting Musculoskeletal: Musculoskeletal: Reports no additional musculoskeletal complaints Integumentary/Breasts: Skin/Breast: Reports system reviewed and no additional complaints, except as docu Neurologic: Reports system reviewed and no additional complaints, except as documented Psychiatric: Psychiatric: Reports no additional psychiatric complaints Allergic/Immunologic: Allergic/Immunologic: Reports no additional allergic/immunologic complaints PMFSH Past Medical History Medical History CAD (coronary artery disease) Cardiac pacemaker Congestive heart failure Depression with anxiety Essential (primary) hypertension Heart block Complete heart block requiring a pacemaker Impacted cerumen of right ear Mixed hyperlipidemia Restless leg syndrome Soft tissue injury of back Strain of left shoulder Type 1 diabetes mellitus maturity onset Surgical History Surgical History H/O percutaneous transluminal coronary angioplasty H/O vasectomy History of coronary artery stent placement X8 Family History Family History Grandparent Diabetes mellitus Hypertension Family history of luis
== END 2023-04-30 12:02 | disposition home or self-care (01) ==
PROVIDERS: Emergency Provider Nurse Practitioner; PCP Family Medicine
DX: R05.1 Acute cough (principal); I25.10 Atherosclerotic heart disease of native coronary artery without angina pectoris; Z95.0 Presence of cardiac pacemaker; I11.0 Hypertensive heart disease with heart failure; I50.9 Heart failure, unspecified; E78.2 Mixed hyperlipidemia; G25.81 Restless legs syndrome; E10.9 Type 1 diabetes mellitus without complications; Z95.5 Presence of coronary angioplasty implant and graft; Z98.52 Vasectomy status
CPT/HCPCS: 71046; 99213; G0463

== ENCOUNTER 2023-11-03 13:40 | Outpatient (CLI) | payer MEDICARE, OTHER, SELFPAY ==
[2023-11-03 20:08] LABS: Hematocrit 33.8 % (42.0-52.0); Hemoglobin 10.3 g/dL (14.0-18.0); Mean Corpuscular HGB Conc 30.5 g/dl (32-36); Mean Corpuscular Hemoglobin 29.3 pg (26-34); Mean Platelet Volume 9.3 fl (7.4-10.4); Platelet Count Result 419 k/mm3 (150-375); Red Blood Count 3.52 M/mm3 (4.6-6.20); Red Cell Distribution Width 16.5 % (11.5-14.5); White Blood Count 9.9 K/mm3 (4.5-10.0)
[2023-11-03 20:22] LABS: Alanine Aminotransferase 35 U/L (6-50); Albumin Level 3.4 g/dL (3.5-5.1); Alkaline Phosphatase 247 U/L (38-126); Anion Gap 7 mmol/L (4-12); Aspartate Amino Transferase 47 U/L (17-59); Bilirubin,Total 0.9 mg/dL (0.2-1.3); Blood Urea Nitrogen 31 mg/dL (9-20); Calcium 8.4 mg/dL (8.4-10.2); Carbon Dioxide 28 mmol/L (22-30); Chloride 101 mmol/L (98-107); Estimated Glomerular Filt Rate 59; Glucose 163 mg/dL (65-110); Potassium 4.4 mmol/L (3.4-5.0); Sodium 136 mmol/L (137-145)
== END 2023-11-03 13:41 | disposition home or self-care (01) ==
LOC: ANHGOSHLAB 13:42
PROVIDERS: PCP Family Medicine; Visit Provider Nurse Practitioner Family
DX: I25.118 Atherosclerotic heart disease of native coronary artery with other forms of angina pectoris (principal); I10 Essential (primary) hypertension; J06.9 Acute upper respiratory infection, unspecified; Z95.1 Presence of aortocoronary bypass graft
CPT/HCPCS: 36415; 80053; 85027

== ENCOUNTER 2024-06-17 12:03 | Outpatient (CLI) | payer MEDICARE, SELFPAY ==
--- NOTE | ~2024-06-17 | XR_ITS ---
XR chest 2V Ordering provider: Nihcole Ndiaye DO History: 79 years Male with . R06.2 - Wheezing . Comparison: April 30, 2023 FINDINGS: MEDIASTINUM: The cardiac silhouette is slightly enlarged. Right bipolar pacemaker. Abandoned urinary left pacemaker is noted. Postoperative changes in the mediastinum. LUNGS: No infiltrates, effusions or pneumothorax. atelectatic changes near to the apex of the heart is noted. OTHER: No free air under the diaphragm. IMPRESSION: Atelectatic changes versus pneumonia in the area of the cardiac apex is noted otherwise, no definite abnormality seen Reviewed, dictated and finalized at location A. SERVICE SALES REPRESENTATIVES IMPRESSION: Atelectatic changes versus pneumonia in the area of the cardiac apex is noted o therwise, no definite abnormality seen
== END 2024-06-17 12:04 | disposition home or self-care (01) ==
LOC: GOSHIMG 12:04
PROVIDERS: PCP Family Medicine; Visit Provider Family Medicine
DX: R06.2 Wheezing (principal); J98.11 Atelectasis; J18.9 Pneumonia, unspecified organism
CPT/HCPCS: 71046

== ENCOUNTER 2024-07-08 13:16 | Outpatient (CLI) | payer MEDICARE, SELFPAY ==
--- NOTE | ~2024-07-08 | CT_ITS ---
EXAMINATION:CT chest high resolution wo co DATE: 07/08/2024 13:36 INDICATION: Pneumonia, unspecified organism. TECHNIQUE: Computed tomography (CT) of the chest was performed without intravenous contrast. Automate d exposure control and iterative reconstruction technique were employed. The dose-length product (DLP ) was 334.66 mGy-cm. COMPARISON: Chest CT 11/19/2022 FINDINGS: The lungs demonstrate mild atelectasis. There is mild scarring at the lung apices. Calcifie d bilateral lung nodules and calcified hilar lymph nodes are consistent with old granulomatous diseas e. There is left-sided pleural thickening and trace pleural effusion. Cardiomegaly is noted. There ar e coronary artery calcifications. There are changes of coronary artery bypass grafting. No pericardia l effusion. There is a right chest pacer with leads in right atrium, right ventricle, and coronary si nus. There are retained leads in right atrium and right ventricle. There is a small sliding hiatal he rnia. Calcifications in the liver and spleen are consistent with old granulomatous disease. There is a gallstone in the gallbladder. Again seen is gallbladder distention, likely secondary to fasting. Th ere is a new 8.1 cm cyst in right kidney. There is a 4 mm stone in left kidney. IMPRESSION: 1. Left-sided pleural thickening with trace pleural effusion. 2. Small sliding hiatal hernia. Reviewed, dictated and finalized at location A. ZINE EDITOR
--- OUTSIDE RECORDS SUMMARY | 2024-07-08 13:20 | XMS_ITS | Clinical Summary ---
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 Name Role Phone Unavailable Primary Care Provider Unavailabl e Social History Tobacco Use Types Packs/Day Years Used Date Smoking Tobacco: Never Assessed Sex and Gender Information Value Date Recorded Sex Assigned at Not on file Legal Sex Male 6:01 PM CDT Gender Identity Not on file Sexual Orientation Not on file Plan of Treatment Health Maintenance Due Date Last Done Comments Hepatitis C 1963 DTaP, Tdap and Td Vaccines ( 1 - Tdap) 1966 Zoster Vaccines (1 of 2) 1997 Pneumococcal Vaccine: 65+ Ye ars (1 of 1 - PCV) 2012 RSV Immunization or 60+ Years (1 - 1-dose 75+ series) 2022 COVID-19 Vaccine ( - 2023-2 5 season) 2024 Influenza Adult (#1) 2024 Meningococcal B Vaccine Aged Out No l onger eligible based on patient's age to complete this topic Meningococcal Vaccine Aged Out No camelia john eligible based on patient's age to complete this topic RSV Immunizations Under 20 Months Aged Out No longer eligible based on patient's age to complete this topic
== END 2024-07-08 13:17 | disposition home or self-care (01) ==
PROVIDERS: PCP Family Medicine; Visit Provider Family Medicine
DX: J18.9 Pneumonia, unspecified organism (principal); K44.9 Diaphragmatic hernia without obstruction or gangrene; J94.8 Other specified pleural conditions
CPT/HCPCS: 71250

== ENCOUNTER 2024-09-23 11:09 | Outpatient (CLI) | payer MEDICARE, SELFPAY ==
--- NOTE | ~2024-09-23 | CT_ITS ---
CT Scan of the Chest without Contrast: Clinical Indication: Pleural effusion Technique: Contiguous sections were acquired throughout the chest without intravenous contrast. Dose reduction technique was used on this scan by utilizing automated exposure control and iterative recon struction technique. The dose-length product (DLP) was 218.26 mGy-cm. COMPARISON: 07/08/2024 Findings: There is no evidence of any significant mediastinal, hilar or axillary lymphadenopathy. Status post C ABG. Pacemaker device present. No pericardial effusion. Minimal bilateral pleural effusions are present.. Stable chronic lingular scarring or atelectasis. Several calcified granulomas are present. Images through the upper abdomen reveal 5 mm nonobstructing left renal stone. Impression: Minimal bilateral pleural effusions. Stable lingular scarring or atelectasis. Other findings, as above. Reviewed, dictated and finalized at location . Impression: Minimal bilateral pleural effusions. Stable lingular scarring or atelectasis. Other findings, as above.
--- OUTSIDE RECORDS SUMMARY | 2024-09-23 11:30 | XMS_ITS | Encounter Summary ---
Author Name [facility] [facility] Address [address] [place] [address] Care Team Providers Care Pattern Keeper Name Role Phone RAUL, DEVIN Primary Care [...] PART A Jun 01, 2012 PART A [id number] PILOMARYSEMAKENNA,SENA VID PATIENT MEDICARE (WNR) MEDICARE (M) PART B Jun 01, 2012 PART B [id number] PILOMARYSEEN,DA VID PATIENT MEDICARE (WNR) MEDICARE (M) PART A Jun 01, 2012 PART A [id number] PILOMARYSEEN,DA VID PATIENT MEDICARE (WNR) MEDICARE (M) PART B Jun 01, 2012 PART B [id number] GOCKEN,DA VID PATIENT MEDICARE (WNR) MEDICARE (M) PART A Jun 01, 1999 PART A [id number] SENA SOTO PATIENT Selected Encounter This section includes the information on record at [place] for the Encounter. Date/Time Encounter Type Encounter Description Reason Provider Source Sep 05, 2024 01:00 PM OFFICE O/P EST HI 40 MIN CARDIOLOGY ICD-10-CM I50.22 Chronic systolic (congestive) heart failure [facility] Encounter Template Text not used by [place] Assessments - Encounter Diagnoses This section includes the primary and secondary diagnoses documented for the Encounter. Date/Time Primary/Secondary Diagnosis Diagnosis Name Provider Source Sep 05, 2024 07:52 PM PRIMARY Chronic systolic (congestive) heart failure [facility] Sep 05, 2024 07:52 PM SECONDARY Ath[place] heart disease of [place] coronary artery w/o ang pctrs [facility] Sep 05, 2024 07:52 PM SECONDARY Cardiomyopathy, unspecified [facility] Sep 05, 2024 07:52 PM SECONDARY Hyperlipidemia, unspecified [facility] Sep 05, 2024 07:52 PM SECONDARY Presence of automatic (implantable) cardiac defibrillator [facility] Sep 05, 2024 07:52 PM SECONDARY 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 This section includes future appointments and future orders which are active, pending or scheduled. Future Appointments This section includes appointments that were scheduled to occur 6 months from the date of the Encounter, up to a maximum of 20 appointments. The data comes from all [place] treatment facilities. Appointment Date/Time Appointment Type Appointme nt Facility Name October 06, 2024 11:00 AM AMBULATORY - MEDICINE [facility] October 12, 2024 02:00 PM AMBULATORY - MEDICINE [facility] Dec 06, 2024 10:40 AM AMBULATORY - MEDICINE [facility] Mar 07, 2025 12:30 PM AMBULATORY - MEDICINE [facility] Vital Signs: All taken on the encounter date This section contains inpatient and outpatient Vital Signs collected on the date of the Encounter. Date/Time Temperature Pulse Blood Pressure Respiratory Rate SP02 Pain Height Weight Body Mass Index Source Sep 05, 2024 01:38 PM 97.7 88 103/64 16 95 0 194.9 28 [facility] Social History: Smoking Status (Most current) and Tobacco Use (All prior to encounter date) This section includes the most current, and the historical, smoking and tobacco- related health factors from the [place] facility where the Encounter took place. Current Smoking Status This section includes the most current smoking, or tobacco-related health factor, from the [place] facility where the Encounter took place. Date/Time Current Smoking Status Comment Facil ity October 15, 2023 06:15 AM ORYX ADMIT TOBACCO SCREEN NO [facility] Tobacco Use History This section includes a history of the smoking, or tobacco-related health factors, that were collected on or before the date of the Encounter. The data comes from the [place] facility where the Encounter took place. Date/Time Smoking Status/Tobacco Use Comment F acility October 14, 2022 01:17 PM VA-TOBACCO NEVER USED [facility] Mar 13, 2022 05:25 PM ORYX ADMIT TOBACCO SCREEN NO [facility] Apr 20, 2019 11:02 AM VA-TOBACCO FORMER USER [facility] Apr 20, 2019 11:02 AM VA-TOBACCO QUIT 15 YRS OR MORE [facility] Nov 19, 2015 09:23 AM LIFETIME NON-USER OF TOBACCO [facility] May 02, 2014 08:44 AM LIFETIME NON-USER OF TOBACCO [facility] Jun 15, 2013 04:36 PM LIFETIME NON-USER OF TOBACCO [facility] Jun 17, 2012 09:31 AM LIFETIME NON-USER OF TOBACCO [facility] Advance Directives: All historical and current Section Date Range: From patient's date of to the date document was created. This section includes ALL of a patient's completed or amended [place] Advance and Rescinded Directives. The entries below indicate that a directive exists for the patient, but an actual copy is not included with this document. The data comes from all [place] facilities. Date Advance Directives Provider Source Nov 19, 2015 ADVANCE DIRECTIVE DISCUSSION JENNIFER LONDONO [facility] Encounter Notes: All associated encounter notes This section contains the clinical notes associated to the Encounter. Date/Time Encounter Note(s) Provider Source Sep 05, 2024 01:16 PM CARDIOLOGY OUTPATI ENT NOTE: LOCAL TITLE: CARDIOLOGY OUTPATIENT FOLLOW UP ST[facility] STANDARD TITLE: CARDIOLOGY OUTPATIENT NOTE DATE OF NOTE: SEP 05, 2024@13:16 ENTRY DATE: SEP 05, 2024@13:17:01 AUTHOR: DIEGO CASE COSIGNER: URGENCY: STATUS: COMPLETED CARDIOLOGY OUTPATIENT FOLLOW UP [facility] ADVANCED HEART FAILURE SERVICE: FOLLOW-UP VISIT NOTE PRINCIPAL AND SECONDARY DIAGNOSES: # HFrEF - TTE 11/2021 35-40% - s/p PPM 11/2012 --> upgrade to TRADE MANAGER-D 03/2022 # CAD - s/p ESE x 2 to RCA in 09/2013 - [facility] 06/12/2020 showed severe LAD and moderate LCX/OM and RCA disease, s/p successful PCI of proximal and mid LAD - s/p CABG x3 (ABBOTT->LAD, Left radial artery to OM and SVG to PDA) at [facility] with Dr. Bernstein on 10/21/2023 # H/o CHB s/p permanent pacemaker 12/10/2012, upgrade to TRADE MANAGER-D in 03/2022 # H/O Hyperkalemia # HTN # Type I diabetes since age 37 yrs # Mild JARRED CARE TEAM: 1. DEVIN CARTER N INTERVAL HISTORY: Mr. Soto is a 79 y/o [place] with PMH which includes CAD s/p ESE x 2 to RCA 10/13/2013 (LHC in 09/2013 showed 40-50% LCX, patent stent to OM, 30-40% lesion distal to stent in OM, ostial diag lesion 40%, with tandem 60-70% lesions), HFrEF s/p TRADE MANAGER-D, h/o complete heart block s/p pacemaker in [...] to OM and SVG to PDA) at [facility] with Dr. Bernstein on 10/21/2023. Last clinic [...] MEDICAL HISTORY: 1) Kidney stone (SNOMED CT 03808464) 2) Mixed hyperlipidemia (SNOMED CT 455941066) 3) Permanent cardiac pacemaker (SNOMED CT [id number]) 4) Elevated Liver Function Tests 5) Benign [...] 10 DAYS TO MONITOR GLUCOSE READINGS 4) INSULIN,ASPART(EQV-NOVLG)100UN /ML FLXPEN INJECT 25 UNITS ACTIVE UNDER THE [...] rhythm at 50 bpm ###. CARDIAC CATH: [facility] 10/15/2023 LEFT HEART CATHETERIZATION LV Systolic (mmHg): 126, EDP (mmHg): 16 Mild Aortic valve stenosis CORONARY ANGIOGRAPHY [place] Vessels Summary: 2 vessel CAD Dominance: Right [...] for evaluation of coronary artery bypass grafting [facility] on 06/12/2020 -severe LAD and moderate LCX/OM and RCA disease. He underwent successful PCI of proximal and mid LAD. ###. ICD: s/p PPM 11/2012 --> upgrade to TRADE MANAGER-D 03/2022 ###. Current NYHA Class: I ###. [...] PLAN: Mr. Soto is a 79 y/o [place] with PMH which includes CAD s/p PCI, HFrEF s/p TRADE MANAGER-D, h/o complete heart block s/p pacemaker in 12/10/2012, h/o acute pericarditis (now resolved) at age 37 which led to the diagnosis of type I diabetes, HTN, and HLD. He appears euvolemic today, NYHA Class I. BARRIERS TO CARE AND CANDIDACY FOR ADVANCED THERAPIES: - age # HFrEF (likely non-ischemic) with upgrade to TRADE MANAGER-D 03/2022: - fluctuating EF, most recent TTE [...] x 2 to RCA in 09/2013 - [facility] 06/12/2020 showed severe LAD and moderate LCX/OM and RCA disease, s/p successful PCI of proximal and mid LAD - CABG x3 (ABBOTT->LAD, Left radial artery to OM and SVG to PDA) at [facility] with Dr. Bernstein on 10/21/2023 - pharmacologic stress test 05/11/2024: no stress-induced ischemia - atorvastatin 20mg daily - asa 81mg daily - sl tng, reinstructed on use - recommend heart healthy diet # H/o CHB s/p permanent pacemaker 12/10/2012, upgrade to TRADE MANAGER-D in 03/2022 - device followed in EP [...] allowing us to participate in this [place]. Please do not hesitate to call the HF team with any questions or concerns. /reed/ Diego Case PA-C Cardiology Physician Communications Manager Signed: 09/05/2024 19:53 Receipt Acknowledged By: 09/06/2024 13:30 /ankit HIGGINS MD, PhD 09/06/2024 ADDENDUM STATUS: COMPLETED I have reviewed the note by Fredy DELUCA and have no further recommendations. /ankit HIGGINS MD, PhD Signed: 09/06/2024 13:30 [facility]
--- OUTSIDE RECORDS SUMMARY | 2024-09-23 11:30 | XMS_ITS ---
Author Name [facility] Organization [facility] Address [address] [place] [address] Care Team Providers Care Operator [employer] Name Role Phone RAUL, DEVIN Primary Care [...] PART A Jun 01, 2012 PART A [id number] [phone] PILOMARYSEMAKENNA,SENA VID PATIENT MEDICARE (WNR) MEDICARE (M) PART B Jun 01, 2012 PART B [id number] PILOMARYSEEN,DA VID PATIENT MEDICARE (WNR) MEDICARE (M) PART A Jun 01, 2012 PART A [id number] PIOLMARYSEEN,DA VID PATIENT MEDICARE (WNR) MEDICARE (M) PART B Jun 01, 2012 PART B [id number] [phone] GOCKEN,DA VID PATIENT MEDICARE (WNR) MEDICARE (M) PART A Jun 01, 1999 PART A [id number] SENA FUENTES PATIENT Selected Encounter This section includes the information on record at [place] for the Encounter. 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 This section includes future appointments and future orders which are active, pending or scheduled. Future Appointments This section includes appointments that were scheduled to occur 6 months from the date of the Encounter, up to a maximum of 20 appointments. The data comes from all [place] treatment facilities. Appointment Date/Time Appointment Type Appointme nt Facility Name Apr 18, 2024 11:00 AM AMBULATORY - MEDICINE [facility] May 03, 2024 03:00 PM AMBULATORY - SURGERY [facility] May 11, 2024 10:00 AM AMBULATORY - MEDICINE [facility] May 11, 2024 11:00 AM AMBULATORY - MEDICINE [facility] May 19, 2024 01:00 PM AMBULATORY - MEDICINE [facility] Jun 15, 2024 01:00 PM AMBULATORY - MEDICINE [facility] Sep 05, 2024 01:00 PM AMBULATORY - MEDICINE [facility] Lab Results: +/- 30 days of the encounter This section includes the Chemistry and Hematology Lab Results on record with [facility] for the patient. Radiology Reports and Pathology Reports are provided separately, in subsequent sections. Lab Results This section contains the Chemistry/Hematology Results that were resulted 30 days before or 30 daysafter the date of the Encounter. Date/Time Source Result Type Result - Unit Interpretation Reference Range Specimen Type Comment Apr 18, 2024 11:09 AM [facility] GLUCOSE,BLOOD-poct (STL) BLOOD Specimen Type: BLOOD Comment: Test Performed by: [id number] Meter #: [id number] Ordering Provider: DEVIN CARTER Report Released Date/Time: Apr 18, 2024 04:26 PM Reporting Lab: [address] [address] Performing Lab: [address] [address] GLUCOSE,BLOOD-poct (STL) 125 mg/dL H 72-99 Apr 06, 2024 11:49 AM [facility] MICRAL/CREAT PROFILE (STL) URINE Specimen Typ e: URINE No comment entered. Ordering Provider: DEVIN CARTER Report Released Date/Time: Jan 04, 2024 04:29 PM Reporting Lab: [facility] [address] [place] [id number] Performing Lab: [facility] [address] [facility] [address] URINE ALBUMIN (PB-STL) 206.9 mg/L uACR (STL) 90 mg/g H 0-29 CREATININE URINE/OTHERS 229.9 mg/dL H 63-1 66 Apr 06, 2024 11:43 AM [facility] LIPID PANEL (STL) PLASMA Specimen Type: PLASM A Comment: No hemolysis noted. Ordering Provider: DEVIN CARTER Report Released Date/Time: Jan 04, 2024 04:29 PM Reporting Lab: [address] [address] Performing Lab: [address] [address] CHOLESTEROL 145 mg/dL 0-200 TRIGLYCERIDE 101 mg/dL 0-150 CALCULATED LDL 84 mg/dL HDL(New) 41 mg/dL >40 Apr 06, 2024 11:43 AM [facility] HGA1C BLOOD Specimen Type: BLOOD No comment entered. Ordering Provider: DEVIN CARTER Report Released Date/Time: Jan 04, 2024 04:29 PM Reporting Lab: [address] [address] Performing Lab: [address] [address] HGA1C 6.7 H 4.0-6.0 Apr 06, 2024 11:43 AM [facility] COMPREHENSIVE METABOLIC PANEL PLASMA Specimen Type: PLASMA Comment: No hemolysis noted. Ordering Provider: DEVIN CARTER Report Released Date/Time: Jan 04, 2024 04:29 PM Reporting Lab: [address] [address] Performing Lab: [address] [address] CREATININE 1.12 mg/dL 0.7-1.3 UREA NITROGEN 20.0 mg/dL 9.0-25.0 GLUCOSE 127 mg/dL H 72-99 SODIUM 141 meq/L 136-145 POTASSIUM 4.9 meq/L 3.5-5 CHLORIDE 106 meq/L 98-107 CARBON DIOXIDE 23 meq/L 22-31 CALCIUM 9.5 mg/dL 8.4-10.4 PROTEIN 7.1 g/dL 6-8.6 ALBUMIN 4.2 g/dL 3.4-5 TOTAL BILIRUBIN 1.6 mg/dL H 0.2-1.2 ALKALINE PHOSPHATASE 157 U/L H 40-150 AST/SGOT 26 U/L 5-34 ALT/SGPT 20 U/L 8-40 EGFR (CKD-EPI 2020) 68.1 >60 Vital Signs: All taken on the encounter date This section contains inpatient and outpatient Vital Signs collected on the date of the Encounter. Date/Time Temperature Pulse Blood Pressure Respiratory Rate SP02 Pain Height Weight Body Mass Index Source Apr 06, 2024 11:02 AM 98 89 127/81 16 97 1 190.4 27 [facility] Social History: Smoking Status (Most current) and Tobacco Use (All prior to encounter date) This section includes the most current, and the historical, smoking and tobacco- related health factors from the [place] facility where the Encounter took place. Current Smoking Status This section includes the most current smoking, or tobacco-related health factor, from the [place] facility where the Encounter took place. Date/Time Current Smoking Status Comment Lux alfonso October 15, 2023 06:15 AM ORYX ADMIT TOBACCO SCREEN NO [facility] Tobacco Use History This section includes a history of the smoking, or tobacco-related health factors, that were collected on or before the date of the Encounter. The data comes from the [place] facility where the Encounter took place. Date/Time Smoking Status/Tobacco Use Comment Giana england October 14, 2022 01:17 PM VA-TOBACCO NEVER USED [facility] Mar 13, 2022 05:25 PM ORYX ADMIT TOBACCO SCREEN NO [facility] Apr 20, 2019 11:02 AM VA-TOBACCO FORMER USER [facility] Apr 20, 2019 11:02 AM VA-TOBACCO QUIT 15 YRS OR MORE [facility] Nov 19, 2015 09:23 AM LIFETIME NON-USER OF TOBACCO [facility] May 02, 2014 08:44 AM LIFETIME NON-USER OF TOBACCO [facility] Jun 15, 2013 04:36 PM LIFETIME NON-USER OF TOBACCO [facility] Jun 17, 2012 09:31 AM LIFETIME NON-USER OF TOBACCO [facility] Advance Directives: All historical and current Section Date Range: From patient's date of to the date document was created. This section includes ALL of a patient's completed or amended [place] Advance and Rescinded Directives. The entries below indicate that a directive exists for the patient, but an actual copy is not included with this document. The data comes from all [place] facilities. Date Advance Directives Provider Source Nov 19, 2015 ADVANCE DIRECTIVE DISCUSSION JENNIFER LONDONO [facility] Radiology Reports: +/- 30 days of the encounter Radiology Reports For cases when an order for radiology services may have been completed prior to the date of the Encounter, the report list includes the Radiology Reports that were completed up to 30 days before dateof the Encounter. For cases when an order for radiology services may have been completed after the date of the Encounter, the report list also includes the Radiology Reports that were completed up to30 days after date of the Encounter. The data comes from all [place] treatment facilities. Date/Time Radiology Report Provider Source Apr 01, 2024 01:[address] ABDOMEN PELVIS W/O CONTRAST-P: SKY FUENTES DICK [id number] -[id number] M Ex Date: APR 01, 2024@13:26 Req Phys: ZANE NICHOLS Pat Loc: [facility] 1 (Req'g Loc) Img Loc: [facility] Service: [address] [address] (Case [id number] COMPLETE) CT ABDOMEN AND PELVIS W/O CONTRAS(CT Detailed) CPT:33801 Reason for Study: left kidney stone follow up Clinical History: Responsible Attending: Chito Frank Attending Contact Number: [phone] Resident Contact Number: Allergies listed in CPRS chart: CIPROFLOXACIN, LISINOPRIL Creatinine:CREATININE 1.10 mg/dL 05/05/2023 11:39 /eGFR: STL EGFR (within one year). CREATININE 1.10 mg/dL (05/05/23 11:39) Wt: 195 lb [88.45 kg] (08/28/2023 09:45) History of: Renal failure, chronic or acute renal disease: NO Report Status: Verified Date Reported: APR 01, 2024 Date Verified: APR 01, 2024 Weight Analyst E-Sig:/ES/Balaji Martins MD Report: CASE #: [id number] DATE:04/01/2024 3:01 PM CLINICAL HISTORY:left kidney stone follow up COMPARISON: None currently available. PROCEDURES: CT ABDOMEN AND PELVIS W/O CONTRAST FINDINGS: Cardiomegaly. Sternotomy. Pacing device. Pulmonary, splenic and hepatic granulomata. No focal pneumonia or pleural effusion. No pericardial effusion. Large right renal cyst appears simple on this noncontrast examination. Nonobstructing renal calculi on the right measuring 3 x 3 mm, 1 x 2 mm and 1 x 2 mm. Nonobstructing renal calculi on the left measuring 4 x 4 mm and 3 x 4 mm. No ureteral calculi. No bladder calculi. No acute inflammation the kidneys, ureters or bladder. Prostatomegaly. No radiodense gallstones. No gallbladder inflammation. No inflammation the pancreas. No acute colitis or enteritis or bowel obstruction or perforation. Subcutaneous edema consistent with injection sites. Periumbilical hernia containing only fat. No free or loculated fluid abdomen or pelvis. Arteriosclerosis of the aorta and its branches to coronary arteries. Degenerative changes spine and hips. Impression: Calculi in both kidneys. No ureteral calculi. No bladder calculi. No obstructive uropathy. No inflammation the kidneys, ureters or bladder. Large cyst upper pole right kidney incompletely characterized as to complexity on this noncontrast examination. No retroperitoneal or mesenteric lymphadenopathy. No inflammation of the gallbladder or pancreas. Granulomatous changes. Cardiomegaly with pacing device leads and evidence of previous sternotomy. Arteriosclerosis of the aorta without aneurysm. Prostatomegaly. Primary Interpreting Staff: Balaji Martins MD, Radiologist (Weight Analyst) /BALAJI CAN [facility] Encounter Notes: All associated encounter notes This section contains the clinical notes associated to the Encounter. Date/Time Encounter Note(s) Provider Source Apr 06, 2024 11:01 AM ENDOCRINOLOGY OUTP ATIENT NOTE: LOCAL TITLE: ENDOCRINOLOGY OUTPATIENT FOLLOW UP [facility] STANDARD TITLE: ENDOCRINOLOGY OUTPATIENT NOTE DATE OF NOTE: APR 06, 2024@11:01 ENTRY DATE: APR 06, 2024@11:01:57 AUTHOR: RADHA FLOYD EXP COSIGNER: URGENCY: STATUS: COMPLETED ENDOCRINOLOGY FOLLOW-UP NOTE == Date of visit: APR 06, 2024 SUBJECTIVE Source(s) of history: Patient and/or other Reliability of source(s): Reliable CHIEF COMPLAINT: Nick is a 78-year-old patient who is presenting for a follow-up for diabetes. INTERIM HX: Last plan included: Continue Glargine 40 units daily Continue novolog up to 100 units throguhout the day Patient is not interested in pump currently taking: -Glargine 46 units daily -NovoLog up to 100 units throughout the day How often do you check blood glucose levels: CGM summary over previous 2 weeks Time in range: - Very high (>250): 1% - High (181-250): 14% - Target range (70-180): 83% - Low (54-69): 2% - Very Low (<54): 0% Time CGM in use: 93% GMI: 6.5% Any complications of diabetes: CAD s/p stent and CABG x 3 in 2023, pacemaker/ defibrilator, neuropathy Do you check glucose before you drive: YES Do you have any medical alerts/ bracelets that say you are a diabetic: yes Are you currently on lipid-lowering therapy: yes Exercise: VERY active - biking and hiking trips Eye exam: 07/22/23 DM without ocular manifestations OU - hx of type 1 DM (dx age 37) - Last A1c 6.5 10/21 - optimize glycemic control per PCP - Annual dilated eye exam INTERIM MEDICAL HISTORY: Nick had CABG x3 over summer 2023 states that he left his insulin while traveling in [place] and was forced to switch to insulin pens rather than insulin vials. He states that he likes the convenience of it and would like to switch possible. HISTORY: Medical History: 1) Kidney stone (SNOMED CT 72486930) 2) Mixed hyperlipidemia (SNOMED CT 602420131) 3) Permanent cardiac pacemaker (SNOMED CT [id number]) 4) Elevated Liver Function Tests 5) Benign essential hypertension 6) Coronary artery disease 7) Hyperlipidemia 8) Elevated PSA 9) Peripheral vascular disease 10) Diabetes mellitus type 1 11) Hypoglycaemia 12) Congestive heart failure 13) Pneumonia 14) Neuropathy 15) Closed extraarticular fracture of distal radius 16) Exposure to potentially hazardous substance 17) Bilateral senile combined form cataracts of eyes 18) Lumbar radiculopathy Surgical History: Any surgeries since previous meeting ROS: Negative except as noted in the HPI Active Outpatient Medications (including Supplies): ATORVASTATIN CALCIUM 80MG TAB TAKE ONE-HALF TABLET BY ACTIVE MOUTH EVERY EVENING FOR CHOLESTEROL. REPORT ANY UNEXPLAINED MUSCLE PAIN/WEAKNESS TO PROVIDER. CARBAMIDE PEROXIDE 6.5% OTIC SOLN INSTILL 5 DROPS IN BOTH ACTIVE EARS THREE TIMES PER WEEK FOR EAR WAX BLOCKAGE GABAPENTIN 300MG CAP TAKE ONE CAPSULE BY MOUTH THREE TIMES ACTIVE A DAY FOR PAIN GLUCAGON 1MG/KAROLYN INJ EMERGENCY KIT INJECT 1MG/1VIAL ACTIVE INTRAMUSCULARLY NEEDED PLEASE USE FOR EMERGENT LOW BLOOD GLUCOSE THAT DOES NOT RESPOND TO ORAL GLUCOSE GLUCOSE SENSOR DEXCOM G6 USE 1 SENSOR UNDER THE SKIN EVERY ACTIVE 10 DAYS TO MONITOR GLUCOSE READINGS INSULIN,ASPART,HUMAN 100 UNIT/ML INJ INJECT 25 UNITS UNDER ACTIVE THE SKIN THREE TIMES A DAY BEFORE MEALS - (DISCARD ANY UNUSED PORTION 28 DAYS AFTER OPENING) USE SLIDING SCALE DIRECTED BY DIABETES PHYSICIAN. *MAX OF 100 UNITS PER DAY* INSULIN,GLARGINE-YFGN 100UNIT/ML INJ INJECT 46 UNITS UNDER ACTIVE THE SKIN ONCE A DAY (AT SAME TIME EACH DAY) - (DISCARD ANY UNUSED PORTION 28 DAYS AFTER OPENING) KETOROLAC TROMETHAMINE 0.5% OPH SOLN INSTILL 1 DROP IN ACTIVE LEFT EYE FOUR TIMES A DAY FOR POSTOPERATIVE EYE PAIN LOSARTAN 25MG TAB TAKE ONE-HALF TABLET BY MOUTH ONCE A DAY ACTIVE FOR HIGH BLOOD PRESSURE METOPROLOL SUCCINATE 25MG SA TAB TAKE ONE-HALF TABLET BY ACTIVE MOUTH ONCE A DAY FOR MYOCARDIAL INFARCTION SWALLOW WHOLE, DO NOT CRUSH OR CHEW (TABLETS MAY BE CUT IN HALF). ORACIT SOLN TAKE 15 ML BY MOUTH TWICE A DAY FOR PREVENTION ACTIVE OF KIDNEY STONES (MIX WITH 4 OUNCES OF WATER PRIOR TO DRINKING) TAMSULOSIN HCL 0.4MG CAP TAKE ONE CAPSULE BY MOUTH EVERY ACTIVE EVENING APPROXIMATELY 30 MINUTES AFTER THE SAME MEAL EACH DAY Non-VA ASPIRIN 81MG EC TAB 81MG BY MOUTH ONCE A DAY ACTIVE Non-VA CHOLECALCIF 50MCG (D3-2,000UNIT) TAB 50MCG BY MOUTH ACTIVE ONCE A DAY Non-VA CITALOPRAM HYDROBROMIDE 40MG TAB 20MG BY MOUTH ACTIVE EVERY MORNING Non-VA PANTOPRAZOLE NA 40MG EC TAB 40MG BY MOUTH EVERY ACTIVE MORNING BEFORE A MEAL I have reviewed current medications w/ Warrior at this visit. Efficacy and side effects of the medications were reviewed. Warrior denies questions, concerns, or problems with medications unless addressed in notes above. Allergies/ Intolerances: CIPROFLOXACIN, LISINOPRIL OBJECTIVE --------- Records reviewed from consulting providers Vitals: Temperature:97.4 F [36.3 C] (04/04/2024 11:37) HR: 89 (04/04/2024 11:37) BP: Measurement DT BP 04/04/2024 11:37 116/72 02/08/2024 11:26 151/88 02/08/2024 07:25 160/97 Weight: 192.2 lb [87.18 kg] (04/04/2024 11:37) Patient Weight History - Last Four 1. 192.2 lbs. / 87.2 kg. on APR 04, 2024@11:37:28 2. 186.8 lbs. / 84.7 kg. on DEC 15, 2023@10:29:52 3. 186.5 lbs. / 84.6 kg. on NOV 30, 2023@11:12:14 4. 183.7 lbs. / 83.3 kg. on NOV 19, 2023@12:40:24 BMI: 27.6 PHYSICAL EXAM: General: no distress, well-nourished, oriented x3, normal mood and affect Skin: good turgor, absent of rash, Hair: Normal texture and distribution Nails: Normal color, no deformities HEENT: normocephalic, atraumatic, no obvious masses or lesions, vision intact, hearing intact, mucous membrane moist without lesions, neck is supple without lesions or adenopathy Heart: S1, S2, regular R&R, no murmur or gallop Lungs: CTAB, regular, unlabored Abdomen: Bowel sounds present, no masses or tenderness Extremities: No amputations or deformities Musculoskeletal: normal gait, no obvious defects with movement of extremities Neurologic: CN 2-12 normal, sensations to touch and proprioception normal Psych: oriented x3, memory intact, judgement, insight, and mood within normal limits Labs: A1C: HGA1C 6.8 H % 09/03/2023 13:49 HGA1C 6.8 H % 05/05/2023 11:39 HGA1C 6.5 H % 10/15/2022 10:41 HGA1C 6.4 H % 07/23/2022 11:54 HGA1C 7.0 H % 10/04/2021 13:02 CBC: WBC 5.9 10*3/uL 02/08/2024 08:28 RBC 5.57 [...] IMMATURE PLT FRACTION 3.4 % 02/08/2024 08:28 CMP: Collection DT Specimen Test Name Result Units Ref Range 02/08/2024 08:28 PLASMA CREATININE 1.28 mg/dL 0.7 - 1.3 02/08/2024 08:28 PLASMA UREA NITROGEN 22.5 mg/dL 9.0 - 25.0 02/08/2024 08:28 PLASMA GLUCOSE 166 H mg/dL 72 - 99 02/08/2024 08:28 PLASMA SODIUM 136 mEq/L 136 - 145 Comment: Aspartate Transaminase result may show positive bias due to Comment: hemolysis. Comment: K result canceled due to hemolysis. Comment: Protein, Total result may show positive bias due to hemolysis. Comment: Specimen grossly hemolyzed. Comment: Troponin result may show an undetermined bias due to hemolysis. Comment: Potassium cancelled due to gross hemolysis. Notified Catrachito Comment: Dwayne JOLLEY in ER 02/08/24@09:10 LR 02/08/2024 11:13 PLASMA POTASSIUM 4.5 mEq/L 3.5 - 5 Comment: No hemolysis noted. 02/08/2024 08:28 PLASMA CHLORIDE 108 H mEq/L 98 - 107 02/08/2024 08:28 PLASMA CARBON DIOXIDE 22 mEq/L 22 - 31 02/08/2024 08:28 PLASMA CALCIUM 8.8 mg/dL 8.4 - 10.4 02/08/2024 08:28 PLASMA PROTEIN 7.7 g/dL 6 - 8.6 02/08/2024 08:28 PLASMA ALBUMIN 4.1 g/dL 3.4 - 5 02/08/2024 08:28 PLASMA TOTAL BILIRUBIN 0.7 mg/dL 0.2 - 1.2 02/08/2024 08:28 PLASMA ALKALINE PHOSPHAT 149 U/L 40 - 150 02/08/2024 08:28 PLASMA AST/SGOT 51 H U/L 5 - 34 02/08/2024 08:28 PLASMA ALT/SGPT 22 U/L 8 - 40 02/08/2024 08:28 PLASMA EGFR (CKD-EPI 202 58.0 Ref: >=60 Comment: Aspartate Transaminase result may show positive bias due to Comment: hemolysis. Comment: K result canceled due to hemolysis. Comment: Protein, Total result may show positive bias due to hemolysis. Comment: Specimen grossly hemolyzed. Comment: Troponin result may show an undetermined bias due to hemolysis. Comment: Potassium cancelled due to gross hemolysis. Notified Catrachito Comment: Dwayne JOLLEY in ER 02/08/24@09:10 LR 09/03/2023 13:49 BLOOD HGA1C 6.8 H % 4.0 - 6.0 02/08/2024 08:28 SERUM TSH 3.618 uIU/mL 0.47 - 5 Comment: TSH result may show an undetermined bias due to hemolysis. BMP: BMP PC STL No data available for: CREATININE UREA NITROGEN GLUCOSE SODIUM POTASSIUM CHLORIDE CARBON DIOXIDE CALCIUM EGFR (DISCONTINUED 08/29/21) Lipid: TRIGLYCERIDE 67 mg/dL 09/03/2023 13:49 CHOLESTEROL 134 mg/dL 09/03/2023 13:49 HDL(New) 44 mg/dL 09/03/2023 13:49 CALCULATED LDL 77 mg/dL 09/03/2023 13:49 TSH: TSH 3.618 uIU/mL 02/08/2024 08:28 Microalb/creat: CREATuF: 1231 (12/24/23 08:15) M/CREAT: 44 (12/09/23 10:53) MICRAL: 58.8 (12/09/23 10:53) No MICRAL/CREAT RATIO (STL) data found Imaging results: ASSESSMENT/PLAN 1. t1dm with insulin use CGM summary over previous 2 weeks Time in range: - Very high (>250): 1% - High (181-250): 14% - Target range (70-180): 83% - Low (54-69): 2% - Very Low (<54): 0% Time CGM in use: 93% GMI: 6.5% Plan: - would like to switch to insulin pens rather than insulin vials -Continue glargine 46 units daily -Continue aspart up to 100 units throughout the day -Orders for pens put in along with pen needles to inject insulin up to 5 times daily - has glucose tablets and glucagon at home in case of emergent hypoglycemia -Return to clinic in 6 months -Advised to call should he have glycemic control issues -Warrior mention very briefly that he could be interested in switching to a pump in the future will address at next appointment -[facility]eterans A1c may be elevated as he was having difficulty with glucose control while traveling in [place] Glucose results reviewed Foot Exam Eye appointment up to date Labs to be done today Reviewed goal A1c - (<8%, FBS 90-140, 2h PP <210 per [facility] guidelines). Medications & side effects reviewed. Reveiwed correction complications of Diabetes- Including, but not limited to the ocula, renal, nervous, cardiovascular, and GI systems Stressed need for regular physical activity at least 30 minutes 4-5 days/week reviewed. Goal sugar, LDL, A1C, BP reviewed. 2. Neuropathy - gabapentin 300mg TID - well controlled at this time 3. HTN/CAD s/p stent and CABG x3/ CHF - , statin, metoprolol, entresto, isosorbide mononitrate - PRN nitro -Denies chest pain today -Blood pressure today 127/81 Reviewed goal of blood pressure to be below 130/80 Emphasized importance of adequate blood pressure control, particularly to prevent heart attack, stroke, heart failure, kidney failure, and eye complications 4. HLD - Statin therapy -Check cholesterol levels today Reviewed goal of LDL to be less than 70 while diabetic. Therapeutic guidelines suggest at least a moderate-inensity statin therapy - which has been shown to lower risk of cardiovascular events. Long-term side effects of noncompliance to lipid levels reviewed with patient including, but not limited to: heart attack, stroke, clots, and coronary artery disease 5. Vitligo - present 2-3 years - test celiac and TSH Education about next steps reviewed with patient. All additional questions answered during visit today Time spent with patient/caregiver: I personally spent minutes today. This time includes preparing to see the patient (e.g. reviewing chart, lab results, medications, etc..), obtaining and/or reviewing history, performing medically necessary and appropriate examination/evaluation, counseling and educating the patient/caregiver, ordering medications, tests, or procedures, documenting in the patient record, and communicating results to the patient/caregiver. RTC: - Order placed, patient to schedule before departing from building today Pt verbalized understanding and had no further questions during today's meeting Patient case discussed with Endocrine staff /reed/ FLOR Romero, MSN, RN Nurse Practitioner Signed: 04/06/2024 11:32 RADHA FLOYD [facility]
--- OUTSIDE RECORDS SUMMARY | 2024-09-23 11:30 | XMS_ITS | Encounter Summary ---
Author Name [facility] [place] Organization [facility] [place] [place] Address [address] [place] [address] Care Team Providers Care Laborer Demolition Name Role Phone RAUL, DEVIN Primary Care [...] PART A Jun 01, 2012 PART A [id number] PILOMARYSEMAKENNA,SENA VID PATIENT MEDICARE (WNR) MEDICARE (M) PART B Jun 01, 2012 PART B [id number] PILOMARYSEEN,DA VID PATIENT MEDICARE (WNR) MEDICARE (M) PART A Jun 01, 2012 PART A [id number] PILOMARYSEEN,DA VID PATIENT MEDICARE (WNR) MEDICARE (M) PART B Jun 01, 2012 PART B [id number] GOCKEN,DA VID PATIENT MEDICARE (WNR) MEDICARE (M) PART A Jun 01, 1999 PART A [id number] SENA SOTO PATIENT Selected Encounter This section includes the information on record at [place] for the Encounter. Date/Time Encounter Type Encounter Description Reason Provider Source Apr 06, 2024 01:00 PM OFFICE O/P EST MOD 30 MIN CARDIOLOGY ICD-10-CM I50.22 Chronic systolic (congestive) heart failure [facility] Encounter Template Text not used by [place] Assessments - Encounter Diagnoses This section includes the primary and secondary diagnoses documented for the Encounter. Date/Time Primary/Secondary Diagnosis Diagnosis Name Provider Source Apr 14, 2024 10:24 AM PRIMARY Chronic systolic (congestive) heart failure [facility] Apr 14, 2024 10:24 AM SECONDARY Athscl heart disease of [place] coronary artery w/o ang pctrs [facility] Apr 14, 2024 10:24 AM SECONDARY Cardiomyopathy, unspecified [facility] Apr 14, 2024 10:24 AM SECONDARY Hyperlipidemia, unspecified [facility] Apr 14, 2024 10:24 AM SECONDARY Type 1 diabetes mellitus without complications [facility] Plan of Treatment: Future Appointments (+ 6 months) and Future Tests (+/- 45 days) The Plan of Treatment section includes future care activities for the patient from all [place] treatmentfacilities. This section includes future appointments and future orders which are active, pending or scheduled. Future Appointments This section includes appointments that were scheduled to occur 6 months from the date of the Encounter, up to a maximum of 20 appointments. The data comes from all [place] treatment facilities. Appointment Date/Time Appointment Type Appointme nt Facility Name Apr 18, 2024 11:00 AM AMBULATORY - MEDICINE [facility] May 03, 2024 03:00 PM AMBULATORY - SURGERY [facility] May 11, 2024 10:00 AM AMBULATORY - MEDICINE [facility] May 11, 2024 11:00 AM AMBULATORY - MEDICINE [facility] May 19, 2024 01:00 PM AMBULATORY - MEDICINE [facility] Jun 15, 2024 01:00 PM AMBULATORY - MEDICINE [facility] Sep 05, 2024 01:00 PM AMBULATORY - MEDICINE [facility] Lab Results: +/- 30 days of [...] Type Comment Apr 18, 2024 11:09 AM [facility] GLUCOSE,BLOOD-poct (STL) BLOOD Specimen Type: BLOOD Comment: Test Performed by: [id number] Meter #: [id number] Ordering Provider: DEVIN CARTER Report Released Date/Time: Apr 18, 2024 04:26 PM Reporting Lab: [address] [phone] Performing Lab: [address] [address] GLUCOSE,BLOOD-poct (STL) 125 mg/dL H 72-99 Apr 06, 2024 11:49 AM [facility] MICRAL/CREAT PROFILE (STL) URINE Specimen Typ e: URINE No comment entered. Ordering Provider: DEVIN CARTER Report Released Date/Time: Jan 04, 2024 04:29 PM Reporting Lab: [facility] [address] [place] [phone] Performing Lab: [facility] [address] [facility] [address] URINE ALBUMIN (PB-STL) 206.9 mg/L uACR (STL) 90 mg/g H 0-29 CREATININE URINE/OTHERS 229.9 mg/dL H 63-1 66 Apr 06, 2024 11:43 AM [facility] HGA1C BLOOD Specimen Type: BLOOD No comment entered. Ordering Provider: DEVIN CARTER Report Released Date/Time: Jan 04, 2024 04:29 PM Reporting Lab: [facility] [address] [facility] [address] Performing Lab: [facility] [place] [id number] [facility] [address] HGA1C 6.7 H 4.0-6.0 Apr 06, 2024 11:43 AM [facility] LIPID PANEL (STL) PLASMA Specimen Type: PLASM A Comment: No hemolysis noted. Ordering Provider: DEVIN CARTER Report Released Date/Time: Jan 04, 2024 04:29 PM Reporting Lab: [address] [address] Performing Lab: [address] [address] CHOLESTEROL 145 mg/dL 0-200 TRIGLYCERIDE 101 mg/dL 0-150 CALCULATED LDL 84 mg/dL HDL(New) 41 mg/dL >40 Apr 06, 2024 11:43 AM [facility] COMPREHENSIVE METABOLIC PANEL PLASMA Specimen Type: PLASMA Comment: No hemolysis noted. Ordering Provider: DEVIN CARTER Report Released Date/Time: Jan 04, 2024 04:29 PM Reporting Lab: [address] [address] Performing Lab: [address] [address] CREATININE 1.12 mg/dL 0.7-1.3 UREA NITROGEN 20.0 [...] 89 127/81 16 97 1 190.4 27 [facility] Social History: Smoking Status (Most current) and Tobacco Use (All prior to encounter date) This section includes the most current, and the historical, smoking and tobacco- related health factors from the [place] facility where the Encounter took place. Current Smoking Status This section includes the most current smoking, or tobacco-related health factor, from the [place] facility where the Encounter took place. Date/Time Current Smoking Status Comment Facil ity October 15, 2023 06:15 AM [facility] ADMIT TOBACCO SCREEN NO [facility] Tobacco Use History This section includes a history of the smoking, or tobacco-related health factors, that were collected on or before the date of the Encounter. The data comes from the [place] facility where the Encounter took place. Date/Time Smoking Status/Tobacco Use Comment F [facility] October 14, 2022 01:17 PM VA-TOBACCO NEVER USED [facility] Mar 13, 2022 05:25 PM [facility] ADMIT TOBACCO SCREEN NO [facility] Apr 20, 2019 11:02 AM VA-TOBACCO FORMER USER [facility] Apr 20, 2019 11:02 AM [place]-TOBACCO QUIT 15 YRS OR MORE [facility] Nov 19, 2015 09:23 AM LIFETIME NON-USER OF TOBACCO [facility] May 02, 2014 08:44 AM LIFETIME NON-USER OF TOBACCO [facility] Jun 15, 2013 04:36 PM LIFETIME NON-USER OF TOBACCO [facility] Jun 17, 2012 09:31 AM LIFETIME NON-USER OF TOBACCO [facility] Advance Directives: All historical and current Section Date Range: From patient's date of to the date document was created. This section includes ALL of a patient's completed or amended [place] Advance and Rescinded Directives. The entries below indicate that a directive exists for the patient, but an actual copy is not included with this document. The data comes from all [place] facilities. Date Advance Directives Provider Source Nov 19, 2015 ADVANCE DIRECTIVE DISCUSSION JENNIFER LONDONO [facility] Radiology Reports: +/- 30 days of the [...] the Encounter. The data comes from all [place] treatment facilities. Date/Time Radiology Report Provider Source Apr 01, 2024 01:[address] ABDOMEN PELVIS W/O CONTRAST-P: SKY SOTO [id number] -[id number] M Exm Date: APR 01, 2024@13:26 Req Phys: ZANE NICHOLS Loc: [facility]Y 1 (Req'g Loc) Img Loc: [facility]AGING [facility] Service: Unknown [address] [address] (Case [id number] COMPLETE) CT ABDOMEN AND PELVIS W/O CONTRAS(CT Detailed) CPT:88442 Reason for Study: left kidney stone follow up Clinical History: Responsible Attending: Chito Frank Attending Contact Number: [phone] Resident Contact Number: Allergies listed in CPRS chart: CIPROFLOXACIN, LISINOPRIL Creatinine:CREATININE 1.10 mg/dL 05/05/2023 11:39 /eGFR: STL EGFR (within one year). CREATININE 1.10 mg/dL (05/05/23 11:39) Wt: 195 lb [88.45 kg] (08/28/2023 09:45) History of: Renal failure, chronic or acute renal disease: NO Report Status: Verified Date Reported: APR 01, 2024 Date Verified: APR 01, 2024 Review Specialist E-Sig:/ES/Balaji Martins MD Report: CASE #: [id number] DATE:04/01/2024 3:01 PM CLINICAL HISTORY:left kidney stone [...] Primary Interpreting Staff: Balaji Martins MD, Radiologist (Review Specialist) /BALAJI CAN [facility] Encounter Notes: All associated encounter notes This section contains the clinical notes associated to the Encounter. Date/Time Encounter Note(s) Provider Source Apr 06, 2024 12:34 PM CARDIOLOGY OUTPATI ENT NOTE: LOCAL TITLE: CARDIOLOGY OUTPATIENT FOLLOW UP STL STANDARD TITLE: CARDIOLOGY OUTPATIENT NOTE DATE OF NOTE: APR 06, 2024@12:34 ENTRY DATE: APR 06, 2024@12:34:44 AUTHOR: DIEGO CASE COSIGNER: URGENCY: STATUS: COMPLETED CARDIOLOGY OUTPATIENT FOLLOW UP STL Has ADDENDA [facility] ADVANCED HEART FAILURE SERVICE: FOLLOW-UP VISIT NOTE PRINCIPAL AND SECONDARY DIAGNOSES: # HFrEF - TTE 11/2021 35-40% - s/p PPM 11/2012 --> upgrade to RESIDENTIAL YOUTH COUNSELOR-D 03/2022 # CAD - s/p ESE x 2 to RCA in 09/2013 - C 06/12/2020 showed severe LAD and moderate LCX/OM and RCA disease, s/p successful PCI of proximal and mid LAD - s/p CABG x3 (ABBOTT->LAD, Left radial artery to OM and SVG to PDA) at [facility] with Dr. Bernstein on 10/21/2023 # H/o CHB s/p permanent pacemaker 12/10/2012, upgrade to RESIDENTIAL YOUTH COUNSELOR-D in 03/2022 # H/O Hyperkalemia # HTN # Type I diabetes since age 37 yrs # Mild JARRED CARE TEAM: 1. DEVIN CARTER N INTERVAL HISTORY: Mr. Soto is a 78 y/o [place] with PMH which includes CAD s/p ESE x 2 to RCA 10/13/2013 ([facility] in 09/2013 showed 40-50% LCX, patent stent to OM, 30-40% lesion distal to stent in OM, ostial diag lesion 40%, with tandem 60-70% lesions), HFrEF s/p RESIDENTIAL YOUTH COUNSELOR-D, h/o complete heart block s/p pacemaker in [...] to OM and SVG to PDA) at [facility] with Dr. Bernstein on 10/21/2023. He then reported low BPs after exercise, as low as 60s/40s and was directed to the ED on 02/08/2024. BP was well controlled in the ED and he was discharged home. TODAY: He exercises frequently and walks for an hour, usually about 3 miles. He reports exertional chest pain if he walks quickly, like [facility] [place] [facility]. He continues to have hypotension with exercise. No dizziness/lh or syncope. No recent nitro use. Denies SOB, palpitations, FABIO, orthopnea, PND. Of note, a 12 point review of systems was performed; all other review of systems negative, except as listed in the interval history. PAST MEDICAL HISTORY: 1) Kidney stone (SNOMED CT 56363060) 2) Mixed hyperlipidemia (SNOMED CT 821597408) 3) Permanent cardiac pacemaker (SNOMED CT 302615820334125) 4) Elevated Liver Function Tests 5) Benign essential hypertension 6) Coronary artery disease 7) Hyperlipidemia 8) Elevated PSA 9) Peripheral vascular disease 10) Diabetes mellitus type 1 11) Hypoglycaemia 12) Congestive heart failure 13) Pneumonia 14) Neuropathy 15) Closed extraarticular fracture of distal radius 16) Exposure to potentially hazardous substance 17) Bilateral senile combined form cataracts of eyes 18) Lumbar radiculopathy SOCIAL HISTORY: lives with Arley alcohol: rarely tobacco: never smoker illicit drugs: none ALLERGIES: CIPROFLOXACIN, LISINOPRIL CURRENT OUTPATIENT MEDICATIONS: Active Outpatient Medications (including Supplies): Active Outpatient Medications Status 1) ATORVASTATIN CALCIUM 80MG TAB TAKE ONE-HALF TABLET BY ACTIVE MOUTH EVERY EVENING FOR CHOLESTEROL. REPORT ANY UNEXPLAINED MUSCLE PAIN/WEAKNESS TO PROVIDER. 2) CARBAMIDE PEROXIDE 6.5% OTIC SOLN INSTILL 5 DROPS IN ACTIVE BOTH EARS THREE TIMES PER WEEK FOR EAR WAX BLOCKAGE 3) GABAPENTIN 300MG CAP TAKE ONE CAPSULE BY MOUTH THREE ACTIVE TIMES A DAY FOR PAIN 4) GLUCAGON 1MG/KAROLYN INJ EMERGENCY KIT INJECT 1MG/1VIAL ACTIVE INTRAMUSCULARLY NEEDED PLEASE USE FOR EMERGENT LOW BLOOD GLUCOSE THAT DOES NOT RESPOND TO ORAL GLUCOSE 5) GLUCOSE SENSOR DEXCOM G6 USE 1 SENSOR UNDER THE SKIN ACTIVE EVERY 10 DAYS TO MONITOR GLUCOSE READINGS 6) INSULIN,ASPART,HUMAN 100 UNIT/ML INJ INJECT 25 UNITS ACTIVE UNDER THE SKIN THREE TIMES A DAY BEFORE MEALS - (DISCARD ANY UNUSED PORTION 28 DAYS AFTER OPENING) USE SLIDING SCALE DIRECTED BY DIABETES PHYSICIAN. *MAX OF 100 UNITS PER DAY* 7) INSULIN,GLARGINE-YFGN 100UNIT/ML INJ INJECT 46 UNITS ACTIVE UNDER THE SKIN ONCE A DAY (AT SAME TIME EACH DAY) - (DISCARD ANY UNUSED PORTION 28 DAYS AFTER OPENING) 8) KETOROLAC TROMETHAMINE 0.5% OPH SOLN INSTILL 1 DROP ACTIVE IN LEFT EYE FOUR TIMES A DAY FOR POSTOPERATIVE EYE PAIN 9) LOSARTAN 25MG TAB TAKE ONE-HALF TABLET BY MOUTH ONCE ACTIVE A DAY FOR HIGH BLOOD PRESSURE 10) METOPROLOL SUCCINATE 25MG SA TAB TAKE ONE-HALF TABLET ACTIVE BY MOUTH ONCE A DAY FOR MYOCARDIAL INFARCTION SWALLOW WHOLE, DO NOT CRUSH OR CHEW (TABLETS MAY BE CUT IN HALF). 11) ORACIT SOLN TAKE 15 ML BY MOUTH TWICE A DAY FOR ACTIVE PREVENTION OF KIDNEY STONES (MIX WITH 4 OUNCES OF WATER PRIOR TO DRINKING) 12) TAMSULOSIN HCL 0.4MG CAP TAKE ONE CAPSULE BY MOUTH ACTIVE EVERY EVENING APPROXIMATELY 30 MINUTES AFTER THE SAME MEAL EACH DAY Active Non-VA Medications Status 1) Non-VA ASPIRIN 81MG EC TAB 81MG BY MOUTH ONCE A DAY ACTIVE 2) Non-VA CHOLECALCIF 50MCG (D3-2,000UNIT) TAB 50MCG BY ACTIVE MOUTH ONCE A DAY 3) Non-VA CITALOPRAM HYDROBROMIDE 40MG TAB 20MG BY MOUTH ACTIVE EVERY MORNING 4) Non-VA PANTOPRAZOLE NA 40MG EC TAB 40MG BY MOUTH ACTIVE EVERY MORNING BEFORE A MEAL 16 Total Medications - All cardiac medications were reconciled during the visit. atorva 40 losartan 12.5 metop XL 12.5 asa 81 sl tng prn () PHYSICAL EXAM: Date Vital Measurement Qualifiers 04/06/2024 11:02 Temp F (C) 98 (36.7) Pulse 89 Respir 16 BP 127/81 Wt lbs (kg)[BMI] 190.4 (86.36)[27] Pain 1 POx (L/Min)(%) 97 GENERAL: Sclera anicteric, PERRLA, MMM NECK: Carotids [...] Mood and affect appropriate DIAGNOSTIC DATA: ###. ECHOCARDIOGRAM: TTE 10/16/2023 1. Global systolic [...] rhythm at 50 bpm ###. CARDIAC CATH: [facility] 10/15/2023 LEFT HEART CATHETERIZATION LV Systolic (mmHg): 126, EDP (mmHg): 16 Mild Aortic valve stenosis CORONARY ANGIOGRAPHY Robinson Vessels Summary: 2 vessel CAD Dominance: Right [...] for evaluation of coronary artery bypass grafting [facility] on 06/12/2020 -severe LAD and moderate LCX/OM and RCA disease. He underwent successful PCI of proximal and mid LAD. ###. ICD: s/p PPM 11/2012 --> upgrade to RESIDENTIAL YOUTH COUNSELOR-D 03/2022 ###. Current NYHA Class: I ###. LABORATORIES: COMPREHENSIVE METABOLIC PANEL SODIUM 136 mEq/L 02/08/2024 08:28 POTASSIUM 4.5 mEq/L 02/08/2024 11:13 CHLORIDE 108 H mEq/L 02/08/2024 08:28 UREA NITROGEN 22.5 mg/dL 02/08/2024 08:28 CREATININE 1.28 mg/dL 02/08/2024 08:28 CALCIUM 8.8 mg/dL 02/08/2024 08:28 PROTEIN 7.7 g/dL 02/08/2024 08:28 ALBUMIN 4.1 g/dL 02/08/2024 08:28 ALKALINE PHOSPHATASE 149 U/L 02/08/2024 08:28 ALT/SGPT 22 U/L 02/08/2024 08:28 AST/SGOT 51 H U/L 02/08/2024 08:28 TOTAL BILIRUBIN 0.7 mg/dL 02/08/2024 08:28 CARBON DIOXIDE 22 mEq/L 02/08/2024 08:28 GLUCOSE 166 H mg/dL 02/08/2024 08:28 EGFR (CKD-EPI 2020) 58.0 02/08/2024 08:28 COMPLETE BLOOD COUNT WBC 5.9 10*3/uL 02/08/2024 [...] 10/15/2023 06:20 PROTIME 10.9 sec 10/15/2023 06:20 HGA1C: HGA1C 6.8 H % 09/03/2023 13:49 LIPIDS TRIGLYCERIDE 67 mg/dL 09/03/2023 13:49 CHOLESTEROL 134 mg/dL 09/03/2023 13:49 HDL(New) 44 mg/dL 09/03/2023 13:49 CALCULATED LDL 77 mg/dL 09/03/2023 13:49 CARDIAC BIOMARKERS Trop: TROPONIN I 0.032 ng/mL 02/08/2024 11:12 BNP: BRAIN NATRIURETIC PEPTIDE 196.3 H pg/mL 02/08/2024 08:28 ASSESSMENT AND PLAN: Mr. Soto is a 78 y/o [place] with PMH which includes CAD s/p PCI, HFrEF s/p RESIDENTIAL YOUTH COUNSELOR-D, h/o complete heart block s/p pacemaker in 12/10/2012, h/o acute pericarditis (now resolved) at age 37 which led to the diagnosis of type I diabetes, HTN, and HLD. He appears euvolemic today, NYHA Class I. BARRIERS TO CARE AND CANDIDACY FOR ADVANCED THERAPIES: - age # HFrEF (likely non-ischemic) with upgrade to RESIDENTIAL YOUTH COUNSELOR-D 03/2022: - fluctuating EF, most recent TTE 09/2023 EF 45-50% - continue GDMT: no SGLT2i (type 1 DM) metop XL 12.5mg daily losartan 12.5mg daily has not tolerated MRA d/t hyperkalemia - [...] to OM and SVG to PDA) at [facility] with Dr. Bernstein on 10/21/2023 - hypotension and CP with exercise, will order stress test - atorvastatin 20mg daily - asa 81mg daily - sl tng, reinstructed on use - recommend heart healthy diet # H/o CHB s/p permanent pacemaker 12/10/2012, upgrade to RESIDENTIAL YOUTH COUNSELOR-D in 03/2022 - device followed in EP [...] declines repeat PSG # Dispo - RTC 5 months Thank you for allowing us to participate [facility]. Please do not hesitate to call the HF team with any questions or concerns. /reed/ Diego Case PA-C Cardiology Physician Associate Sales Representative Signed: 04/12/2024 08:59 05/13/2024 ADDENDUM STATUS: COMPLETED I called patient to review results of stress test. All questions answered. He reports occasional angina symptoms with exertion. He states BPs after exercise have improved. No dizziness/LH or syncope. He would like to restart imdur. He had been taking imdur 120mg prior to CABG and had good symptom control. Will start imdur 30mg daily and uptitrate as needed. ###. MPI 1. 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 No evidence of reversibility to indicate stress-induced ischemia. 2. Moderate global hypokinesis with calculated LVEF of 34%. 3. Dilated left ventricle. /reed/ Diego Case PA-C Cardiology Physician Associate Sales Representative Signed: 05/13/2024 16:06 DIEGO CASE [facility]
--- OUTSIDE RECORDS SUMMARY | 2024-09-23 11:30 | XMS_ITS | Encounter Summary ---
Author Name [facility] [place] [facility] [place] Organization [facility] [place] Address [address] [place] [address] Care Team Providers Care Circular Tank Cooper Name Role Phone RAUL DEVIN Primary Care Provider Unavailabl e Insurance [...] PART A Jun 01, 2012 PART A [id number] ALFREDO,SENA VID PATIENT MEDICARE (WNR) MEDICARE (M) PART B Jun 01, 2012 PART B [id number] ALFREDO,SENA VID PATIENT MEDICARE (WNR) MEDICARE (M) PART A Jun 01, 2012 PART A [id number] [phone] ALFREDO,DA VID PATIENT MEDICARE (WNR) MEDICARE (M) PART B Jun 01, 2012 PART B [id number] [phone] ALFREDO,DA VID PATIENT MEDICARE (WNR) MEDICARE (M) PART A Jun 01, 1999 PART A [id number] SENA FUENTES PATIENT Selected Encounter This section includes the information on record at [place] for the Encounter. Date/Time Encounter Type Encounter Description Reason Pro vider Source Nov 06, 2023 09:00 AM Outpatient Encounter [facility] Encounter Template Text not used by [facility] Plan of Treatment: Future Appointments (+ 6 months) and Future Tests (+/- 45 days) The Plan of Treatment section includes future care activities for the patient from all [place] treatmentfacilities. This section includes future appointments and future orders which are active, pending or scheduled. Future Appointments This section includes appointments that were scheduled to occur 6 months from the date of the Encounter, up to a maximum of 20 appointments. The data comes from all [place] treatment facilities. Appointment Date/Time Appointment Type Appointme nt Facility Name Nov 19, 2023 01:00 PM AMBULATORY - SURGERY [facility] Nov 30, 2023 11:30 AM AMBULATORY - MEDICINE [facility] Dec 09, 2023 10:00 AM AMBULATORY - MEDICINE [facility] Dec 15, 2023 10:40 AM AMBULATORY - MEDICINE [facility] Dec 24, 2023 09:45 AM AM[facility]ULATORY [facility]ERY [facility] Jan 21, 2024 01:00 PM AMBULATORY - SURGERY [facility] Feb 08, 2024 07:25 AM AMBULATORY - MEDICINE [facility] Apr 01, 2024 01:30 PM [facility]AT[facility] Apr 04, 2024 11:30 AM AMBULATORY - SURGERY [facility] Apr 06, 2024 11:00 AM AMBULATORY - MEDICINE [facility] Apr 06, 2024 01:00 PM AMBULATORY - MEDICINE [facility] Apr 18, 2024 11:00 AM AMBULATORY - MEDICINE [facility] May 03, 2024 03:00 PM AMBULATORY - SURGERY [facility] Active, Pending, and Scheduled Orders This section includes a listing of several types of active, pending, and scheduled orders, including clinic medications orders, diagnostic test orders, procedure orders and consult orders; where the start date of the order is 45 days before the date of the Encounter or 45 days after the date of theEncounter. The data comes from all [place] treatment facilities. Test Date/Time Test Type Test Details Facility Name October 15, 2023 12:00 AM Laboratory - Blood Bank Order ABO/RH - LAB BLOOD SP [facility] October 15, 2023 06:00 AM Laboratory - Blood Bank Order TYPE & SCREEN - LAB BLOOD WC [facility] Dec 15, 2023 12:00 AM Laboratory - Chemi stry Order BASIC METABOLIC PANEL GREEN LI/HEP BLD/PLAS PLASMA SP [facility] Dec 15, 2023 12:00 AM Laboratory - Chemi stry Order MAGNESIUM GREEN LI/HEP BLD/PLAS PLASMA [facility] Lab Results: +/- 30 days of the encounter This section includes the Chemistry and Hematology Lab Results on record with [place] for the patient. Radiology Reports and Pathology Reports are provided separately, in subsequent sections. Lab Results This section contains the Chemistry/Hematology Results that were resulted 30 days before or 30 daysafter the date of the Encounter. Date/Time Source Result Type Result - Unit Interpretation Reference Range Specimen Type Comment Nov 30, 2023 12:37 PM [facility] MAGNESIUM PLASMA Specimen Type: PLASMA Comment: No hemolysis noted. Ordering Provider: DIEGO CASE Report Released Date/Time: Nov 30, 2023 12:04 PM Reporting Lab: [facility] [address] [facility] [address] Performing Lab: [facility] [address] [facility] [address] MAGNESIUM 1.9 mg/dL 1.6-2.6 Nov 30, 2023 12:37 PM [facility] BASIC METABOLIC PANEL PLASMA Specimen Type: PL ASMA Comment: No hemolysis noted. Ordering Provider: DIEGO CASE Report Released Date/Time: Nov 30, 2023 12:04 PM Reporting Lab: [facility] [address] [facility] [address] Performing Lab: [address] [place] [address] CREATININE 1.14 mg/dL 0.7-1.3 UREA NITROGEN 19.1 mg/dL 9.0-25.0 GLUCOSE 158 mg/dL H 72-99 SODIUM 138 meq/L 136-145 POTASSIUM 4.9 meq/L 3.5-5 CHLORIDE 105 meq/L 98-107 CARBON DIOXIDE 24 meq/L 22-31 CALCIUM 9.4 mg/dL 8.4-10.4 EGFR (CKD-EPI 2020) 66.7 >60 October 16, 2023 09:28 PM [facility] GLUCOSE,BLOOD-poct (STL) BLOOD Specimen Type: BLOOD Comment: Test Performed by: [id number] Meter #: [id number] Ordering Provider: SOLOMON DEMARCO Report Released Date/Time: October 16, 2023 11:21 PM Reporting Lab: [address] [address] Performing Lab: [address] [address] GLUCOSE,BLOOD-poct (STL) 97 mg/dL 72-99 October 16, 2023 04:56 PM [facility] GLUCOSE,BLOOD-poct (STL) BLOOD Specimen Type: BLOOD Comment: Test Performed by: [id number] Meter #: [id number] Ordering Provider: SOLOMON DEMARCO Report Released Date/Time: October 16, 2023 05:15 PM Reporting Lab: [address] [address] Performing Lab: [address] [address] GLUCOSE,BLOOD-poct (STL) 175 mg/dL H 72-99 October 16, 2023 11:33 AM [facility] GLUCOSE,BLOOD-poct (STL) BLOOD Specimen Type: BLOOD Comment: Test Performed by: [id number] Meter #: [id number] Ordering Provider: SOLOMON DEMARCO Report Released Date/Time: October 16, 2023 12:22 PM Reporting Lab: [address] [address] Performing Lab: [facility] [address] [place] [phone] GLUCOSE,BLOOD-poct (STL) 167 mg/dL H 72-99 October 16, 2023 06:59 AM [facility] BASIC METABOLIC PANEL PLASMA Specimen Type: PL ASMA Comment: No hemolysis noted. Ordering Provider: CYNTHIA CABRERA Report Released Date/Time: October 15, 2023 04:22 PM Reporting Lab: [address] [address] Performing Lab: [address] [address] CREATININE 1.09 mg/dL 0.7-1.3 UREA NITROGEN 21.4 mg/dL 9.0-25.0 GLUCOSE 132 mg/dL H 72-99 SODIUM 140 meq/L 136-145 POTASSIUM 4.5 meq/L 3.5-5 CHLORIDE 106 meq/L 98-107 CARBON DIOXIDE 26 meq/L 22-31 CALCIUM 9.5 mg/dL 8.4-10.4 EGFR (CKD-EPI 2020) 70.3 >60 October 16, 2023 06:[address] [facility] CBC BLOOD Specimen Type: BLOOD No comment entered. Ordering Provider: CYNTHIA CABRERA Report Released Date/Time: October 15, 2023 04:22 PM Reporting Lab: [address] [address] Performing Lab: [address] [address] WBC 4.4 10*3/uL 3.6-11.2 RBC 5.28 10*6/uL 4.10-5.70 HGB 16.0 g/dL 13.1-16.8 HCT 49.1 H 38.2-48.4 MCV 93.0 fL 80.0-100.0 MCH 30.3 pg 27.0-34.0 MCHC 32.6 g/dL L 33.0-36.0 PLT 130 10*3/uL L 150-400 MPV 10.8 fL 7.5-11.2 RDW 13.6 11.8-15.1 LYMPHOCYTES, AUTO % 34 MONOCYTES, AUTO % 11 NEUTROPHILS, AUTO % 52 EOSINOPHILS, AUTO % 3 BASOPHILS, AUTO % 1 LYMPHOCYTES, ABSOLUTE 1.47 10*3/uL 0.77- 4.50 MONOCYTES, ABSOLUTE 0.47 10*3/uL 0.19-0. 80 NEUTROPHILS, ABSOLUTE 2.29 10*3/uL 2.10- 8.00 EOSINOPHILS, ABSOLUTE 0.11 10*3/uL 0.00- 0.60 BASOPHILS, ABSOLUTE 0.02 10*3/uL 0.00-0. 20 IMMATURE PLT FRACTION 2.7 1.0-7.0 October 16, 2023 06:30 AM [facility] GLUCOSE,BLOOD-poct (STL) BLOOD Specimen Type: BLOOD Comment: Test Performed by: [id number] Meter #: [id number] Ordering Provider: SOLOMON DEMARCO Report Released Date/Time: October 16, 2023 07:53 AM Reporting Lab: [address] [address] Performing Lab: [address] [address] GLUCOSE,BLOOD-poct (STL) 120 mg/dL H October 15, 2023 08:59 PM [facility] GLUCOSE,BLOOD-poct (STL) BLOOD Specimen Type: BLOOD Comment: Test Performed by: [id number] Meter #: [id number] Ordering Provider: SOLOMON DEMARCO Report Released Date/Time: October 15, 2023 10:00 PM Reporting Lab: [address] [address] Performing Lab: [address] [address] GLUCOSE,BLOOD-poct (STL) 155 mg/dL H October 15, 2023 04:22 PM [facility] GLUCOSE,BLOOD-poct (STL) BLOOD Specimen Type: BLOOD Comment: Test Performed by: [id number] Meter #: [id number] Ordering Provider: SOLOMON DEMARCO Report Released Date/Time: October 15, 2023 04:38 PM Reporting Lab: [facility] [address] [facility] [address] Performing Lab: [place] [address] [address] [address] GLUCOSE,BLOOD-poct (STL) 89 mg/dL 72-October 15, 2023 12:01 PM [facility] GLUCOSE,BLOOD-poct (STL) BLOOD Specimen Type: BLOOD Comment: Test Performed by: [id number] Meter #: [id number] Ordering Provider: GRETCHEN FREIRE Report Released Date/Time: October 15, 2023 12:12 PM Reporting Lab: [place] [address] [address] Performing Lab: [address] [address] GLUCOSE,BLOOD-poct (STL) 144 mg/dL H 72-October 15, 2023 06:25 AM [facility] COVID-19 SCREENING PANEL (STL-PB) NASOPHARYNX Speci men Type: NASOPHARYNX Comment: Qualitative real-time PCR and RT-PCR to detect RNA from SARS-CoV-2 virus. A negative result does not preclude infection with the agent(s) tested and should not be used as the sole basis for treatment or other patient management decisions. If negative, but symptoms persist, consider re-testing. Positive results do not rule out bacterial infection or co-infection with other viruses. All results must be combined with clinical observations, patient history, and epidemiological information for final interpretation. Ordering Provider: GRETCHEN FREIRE Report Released Date/Time: October 08, 2023 02:49 PM Reporting Lab: [place] [address] [address] Performing Lab: [address] [address] COVID-19 (STL-PB) Not Detected Not Detec ajit October 15, 2023 06:20 AM [facility] GLUCOSE,BLOOD-poct (STL) BLOOD Specimen Type: BLOOD Comment: Test Performed by: [id number] Meter #: [id number] Ordering Provider: GRETCHEN FREIRE Report Released Date/Time: October 15, 2023 10:13 AM Reporting Lab: [address] [address] Performing Lab: [address] [address] GLUCOSE,BLOOD-poct (STL) 130 mg/dL H 72-99 October 15, 2023 06:20 AM [facility] PT/INR NEW (STL-MA) PLASMA Specimen Type: PLAS MA No comment entered. Ordering Provider: GRETCHEN FREIRE Report Released Date/Time: October 08, 2023 02:49 PM Reporting Lab: [address] [address] Performing Lab: [address] [address] PROTIME 10.9 s 9.4-12.5 INR VALUE 1.0 {INR} October 15, 2023 06:20 AM [facility] BASIC METABOLIC PANEL PLASMA Specimen Type: PL ASMA Comment: No hemolysis noted. Ordering Provider: GRETCHEN FREIRE Report Released Date/Time: October 08, 2023 02:49 PM Reporting Lab: [place] [address] [address] Performing Lab: [address] [address] CREATININE 1.10 mg/dL 0.7-1.3 UREA NITROGEN 25.9 mg/dL H 9.0-25.0 GLUCOSE 141 mg/dL H 72-99 SODIUM 139 meq/L 136-145 POTASSIUM 4.2 meq/L 3.5-5 CHLORIDE 106 meq/L 98-107 CARBON DIOXIDE 28 meq/L 22-31 CALCIUM 9.3 mg/dL 8.4-10.4 EGFR (CKD-EPI 2020) 69.6 >60 October 15, 2023 06:20 AM [facility] CBC BLOOD Specimen Type: BLOOD No comment entered. Ordering Provider: GRETCHEN FREIRE Report Released Date/Time: October 08, 2023 02:49 PM Reporting Lab: [address] [address] Performing Lab: [address] [address] WBC 4.8 10*3/uL 3.6-11.2 RBC 5.45 10*6/uL 4.10-5.70 HGB 16.3 g/dL 13.1-16.8 HCT 51.3 H 38.2-48.4 MCV 94.1 fL 80.0-100.0 MCH 29.9 pg 27.0-34.0 MCHC 31.8 g/dL L 33.0-36.0 PLT 133 10*3/uL L 150-400 MPV 10.3 fL 7.5-11.2 RDW 13.8 11.8-15.1 LYMPHOCYTES, AUTO % 27 MONOCYTES, AUTO % 11 NEUTROPHILS, AUTO % 58 EOSINOPHILS, AUTO % 3 BASOPHILS, AUTO % 1 LYMPHOCYTES, ABSOLUTE 1.32 10*3/uL 0.77- 4.50 MONOCYTES, ABSOLUTE 0.55 10*3/uL 0.19-0. 80 NEUTROPHILS, ABSOLUTE 2.78 10*3/uL 2.10- 8.00 EOSINOPHILS, ABSOLUTE 0.12 10*3/uL 0.00- 0.60 BASOPHILS, ABSOLUTE 0.03 10*3/uL 0.00-0. [address]T FRACTION 2.8 1.0-7.0 October 15, 2023 12:00 AM [facility] MRSA SURVL NARES DNA NARES Specimen Type: LALIT ES Comment: Qualitative real-time PCR test for the rapid detection of methicillin-resistant Staphylococcus aureus (MRSA) DNA from nasal swabs. A negative result does not preclude infection with the agent(s) tested and should not be used as the sole basis for treatment or other patient management decisions. A positive test does not necessarily indicate the presence of viable organisms, following bacterial culture to recover the organism for further characterization and susceptibility testing. All results must be combined with clinical observations, patient history, and epidemiological information for final interpretation. Ordering Provider: CYNTHIA CABRERA Report Released Date/Time: October 15, 2023 04:06 PM Reporting Lab: [address] [address] Performing Lab: [facility] [address] [facility] [address] MRSA SURVL NARES DNA Negative Negative Social History: Smoking Status (Most current) and Tobacco Use (All prior to encounter date) This section includes the most current, and the historical, smoking and tobacco- related health factors from the [place] facility where the Encounter took place. Current Smoking Status This section includes the most current smoking, or tobacco-related health factor, from the [place] facility where the Encounter took place. Date/Time Current Smoking Status Comment Lux ity October 15, 2023 06:15 AM ORYX ADMIT TOBACCO SCREEN NO [facility] Tobacco Use History This section includes a history of the smoking, or tobacco-related health factors, that were collected on or before the date of the Encounter. The data comes from the [place] facility where the Encounter took place. Date/Time Smoking Status/Tobacco Use Comment F actoya October 14, 2022 01:17 PM VA-TOBACCO NEVER USED [facility] Mar 13, 2022 05:25 PM ORYX ADMIT TOBACCO SCREEN NO [facility] Apr 20, 2019 11:02 AM VA-TOBACCO FORMER USER [facility] Apr 20, 2019 11:02 AM [place]-TO[place]AC[place] QUIT 15 YRS OR MORE [facility] Nov 19, 2015 09:23 AM LIFETIME NON-USER OF TOBACCO [facility] May 02, 2014 08:44 AM LIFETIME NON-USER OF TOBACCO [facility] Jun 15, 2013 04:36 PM LIFETIME NON-USER OF TOBACCO [facility] Jun 17, 2012 09:31 AM LIFETIME NON-USER OF TOBACCO [facility] Advance Directives: All historical and current Section Date Range: From patient's date of to the date document was created. This section includes ALL of a patient's completed or amended [place] Advance and Rescinded Directives. The entries below indicate that a directive exists for the patient, but an actual copy is not included with this document. The data comes from all [place] facilities. Date Advance Directives Provider Source Nov 19, 2015 ADVANCE DIRECTIVE DISCUSSION JENNIFER LONDONO [facility] Encounter Notes: All associated encounter notes This section contains the clinical notes associated to the Encounter. Date/Time Encounter Note(s) Provider Source Nov 06, 2023 09:01 AM GERIATRIC MEDICINE RECRUITMENT COORDINATOR NOTE: LOCAL TITLE: [facility] COORDINATION TEAM NOTE STANDARD TITLE: GERIATRIC MEDICINE RECRUITMENT COORDINATOR NOTE DATE OF NOTE: NOV 06, 2023@09:01 ENTRY DATE: NOV 06, 2023@09:01:19 AUTHOR: ANGELA ANTHONY COSIGNER: URGENCY: STATUS: COMPLETED THE PATIENT HAS BEEN REFERRED TO THE FOLLOWING SERVICES HOME CARE SERVICES: Community skilled home health care SN/WC - in accordance with [place] Standardized Episode of Care (SEOC) HOME CARE SERVICE FUNDING: VA: [facility] NAME OF AGENCY TO PROVIDE CARE: R[address] [place], [place] [address] DURATION OF CARE (Non-Hospice Services):Skilled Home Health Care Bundled, 180 Days OR WHENEVER PATIENT GOALS ARE MET, WHICHEVER COMES FIRST Date service is projected to start: 11/06/23 End service date: 01/06/24 (VA consults terminate automatically after 180 days) *Please send all correspondence/orders to be signed to: Roddy Cabrera PLAN: New Services-Transition to Skilled Home Health Services. Helpful phone numbers: [facility] Utilization Management Nurse [facility] Email: [email or web address] JOSE VIERA, RN REGISTERED NURSE Signed: 11/06/2023 09:10 ANGELA ANTHONY [facility]
--- OUTSIDE RECORDS SUMMARY | 2024-09-23 11:30 | XMS_ITS | Clinical Summary ---
Author Organization [facility] Address [facility] [place] [address] Care Team Providers Care Data Communications Technician Name Role Phone Unavailable Primary Care Provider [...] Td Vaccines ( 1 - Tdap) 1966 Pneumococcal Vaccine: 50+ Ye ars (1 of 1 - PCV) 1997 Zoster Vaccines (1 of 2) 1997 RSV Immunization or 60+ Years (1 - 1-dose 75+ series) 2022 COVID-19 Vaccine ( - 2023-2 5 season) 2024 Meningococcal B Vaccine Aged Out No l onger eligible based on patient's age to complete this topic Meningococcal Vaccine Aged Out No camelia john eligible based on patient's age to complete this topic RSV Immunizations Under 20 Months Aged Out No longer eligible based on patient's age to complete this topic
--- OUTSIDE RECORDS SUMMARY | 2024-09-23 11:30 | XMS_ITS ---
Author Name [facility] [place] Organization [facility] [place] [facility] [place] Address [address] [place] [address] Care Team Providers Care Inspector Canvas Products Name Role Phone RAUL, DEVIN Primary Care [...] PART A Jun 01, 2012 PART A [id number] PILOMARYSEMAKENNA,SENA VID PATIENT MEDICARE (WNR) MEDICARE (M) PART B Jun 01, 2012 PART B [id number] PILOMARYSEEN,DA VID PATIENT MEDICARE (WNR) MEDICARE (M) PART A Jun 01, 2012 PART A [id number] [phone] PILOMARYSEEN,DA VID PATIENT MEDICARE (WNR) MEDICARE (M) PART B Jun 01, 2012 PART B [id number] PF90 GOCKEN,DA VID PATIENT MEDICARE (WNR) MEDICARE (M) PART A Jun 01, 1999 PART A [id number] PF90 SENA FUENTES PATIENT Selected Encounter This section includes the information on record at [place] for the Encounter. 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 Plan of Treatment: Future Appointments (+ [...] Date/Time Appointment Type Appointme nt Facility Name Sep 05, 2024 01:00 PM AM[facility]ULATORY - [facility]INE [facility] October 06, 2024 11:00 AM [facility]ORY - MEDICINE [facility] October 12, 2024 02:00 PM [facility] MED[facility]INE [facility] Dec 06, 2024 10:40 AM AMBULATORY - MEDICINE [facility] Lab Results: +/- 30 days of the encounter This section includes the Chemistry and Hematology Lab Results on record with [place] for the patient. Radiology Reports and Pathology Reports are provided separately, in subsequent sections. Lab Results This section contains the Chemistry/Hematology Results that were resulted 30 days before or 30 daysafter the date of the Encounter. Date/Time Source Result Type Result - Unit Interpretation Reference Range Specimen Type Comment Jun 15, 2024 04:[address] [facility] OCCULT BLOOD FIT X1 SCREEN FECES Specimen Typ e: FECES No comment entered. Ordering Provider: DEVIN CARTER Report Released Date/Time: Apr 18, 2024 11:49 AM Reporting Lab: [facility] [address] [facility] [id number] Performing Lab: [facility] [address] [facility] [id number] OCCULT BLOOD (FIT) #1 OF 1 Negative Nega tive Social History: Smoking Status (Most current) and [...] Date/Time Current Smoking Status Comment Facil ity Apr 18, 2024 11:00 AM [place]-TOBACCO NEVER U SED CIGARETTES [facility] Tobacco Use History This section includes a history of the smoking, or tobacco-related health factors, that were collected on or before the date of the Encounter. The data comes from the [place] facility where the Encounter took place. Date/Time Smoking Status/Tobacco Use Comment F acility Apr 18, 2024 11:00 AM [place]-TOBACCO NEVER U SED OTHER TYPE [facility] Nov 09, 2020 11:00 AM VA-TOBACCO NEVER USED [facility] October 22, 2017 03:06 PM VA-TOBACCO NEVER USED [facility] Mar 06, 2017 01:35 PM LIFETIME NON-USER OF TOBACCO [facility] Advance Directives: All historical and current Section Date Range: From patient's date of to the date document was created. This section includes ALL of a patient's completed or amended [place] Advance and Rescinded Directives. The entries below indicate that a directive exists for the patient, but an actual copy is not included with this document. The data comes from all [facility]. Date Advance Directives Provider Source Nov 19, 2015 ADVANCE DIRECTIVE DISCUSSION JENNIFER LONDONO [facility] Encounter Notes: All associated encounter notes This section contains the clinical notes associated to the Encounter. Date/Time Encounter Note(s) Provider Source Jun 28, 2024 01:02 PM ADDENDUM: LOCAL TITLE: Addendum STANDARD TITLE: ADDENDUM DATE OF NOTE: JUN 28, 2024@13:02:07 ENTRY DATE: JUN 28, 2024@13:02:07 AUTHOR: DEVIN CARTER EXP COSIGNER: URGENCY: STATUS: COMPLETED unsure about what they are stating in your note above. alerting RN Waqas Holley /reed/ Devin Carter MD. Staff Jose Elias. Signed: 06/28/2024 13:03 Receipt Acknowledged By: 06/28/2024 16:10 /reed/ RADHA GARCIA RN REGISTERED NURSE ====== --- Original Document --- 06/28/24 V15 PACT TELEPHONE CONTACT NOTE STL: Patient/Other contacted: Patient Patient Identifiers : Full Name Date of Outbound call per provider request: Other: receipt of letter Patient understanding verified by teach back: Yes Total time spent on phone: 20 Patient Contacted, Identity verified by full name and Date of . Patient informed that he originally submitted medical form to [facility] on 03/28/24. Patient stated that this form had been completed by either PCP or Endocrinology. Patient further stated that he did not have a copy of the original medical form. RNCM unable to find ref to form or copy in cprs. Patient further added that [facility] sent letter on 05/31/24 seeking additional information. RNCM attempted to contact Office of the rock breaker [phone] to obtain copy of original medical form as ref above; RNCM was unable to speak to any Staff Member. RNCM will continue to search for original medical form. Patient verbalized good understanding. /reed/ RADHA GARCIA RN REGISTERED NURSE Signed: 06/28/2024 09:52 06/28/2024 ADDENDUM STATUS: COMPLETED RNCM able to speak to Leah/medical review unit/[facility] who stated that her office could not release any information associated with original medical form dated 03/28/24. Further, Leah stated that PCP could either complete questions 1 and 2 or Vet could submit new medical report for [place]. /reed/ RADHA GARCIA RN REGISTERED NURSE Signed: 06/28/2024 10:05 Receipt Acknowledged By: 06/28/2024 13:00 /reed/ Devin Carter MD. Staff Jose Elias. DEVIN CARTER [facility] Jun 28, 2024 10:02 AM ADDENDUM: LOCAL TITLE: Addendum STANDARD TITLE: ADDENDUM DATE OF NOTE: JUN 28, 2024@10:02:30 ENTRY DATE: JUN 28, 2024@10:02:31 AUTHOR: RADHA NGUYEN EXP COSIGNER: URGENCY: STATUS: COMPLETED RNCM able to speak to Leah/medical review unit/rock break[employer] [place] who stated that her office could not release any information associated with original medical form dated 03/28/24. Further, Leah stated that PCP could either complete questions 1 and 2 or Vet could submit new medical report for [place]. /reed/ RADHA GARCIA RN REGISTERED NURSE Signed: 06/28/2024 10:05 Receipt Acknowledged By: 06/28/2024 13:00 /reed/ Devin Carter MD. Staff Jose Elias. ====== --- Original Document --- 06/28/24 V15 PACT TELEPHONE CONTACT NOTE STL: Patient/Other contacted: Patient Patient Identifiers : Full Name Date of Outbound call per provider request: Other: receipt of letter Patient understanding verified by teach back: Yes Total time spent on phone: 20 Patient Contacted, Identity verified by full name and Date of . Patient informed that he originally submitted medical form to [facility] on 03/28/24. Patient stated that this form had been completed by either PCP or Endocrinology. Patient further stated that he did not have a copy of the original medical form. RNCM unable to find ref to form or copy in cprs. Patient further added that [facility] sent letter on 05/31/24 seeking additional information. RNCM attempted to contact Office of the rock breaker [phone] to obtain copy of original medical form as ref above; RNCM was unable to speak to any Staff Member. RNCM will continue to search for original medical form. Patient verbalized good understanding. /reed/ RADHA GARCIA RN REGISTERED NURSE Signed: 06/28/2024 09:[address] [facility] Jun 28, 2024 09:43 AM NURSING NOTE: LOCAL TITLE: V15 PACT TELEPHONE CONTACT NOTE [facility] STANDARD TITLE: NURSING NOTE DATE OF NOTE: JUN 28, 2024@09:43 ENTRY DATE: JUN 28, 2024@09:43:55 AUTHOR: RADHA NGUYEN EXP COSIGNER: URGENCY: STATUS: COMPLETED V15 PACT TELEPHONE CONTACT NOTE STL Has ADDENDA Patient/Other contacted: Patient Patient Identifiers : Full Name Date of Outbound call per provider request: Other: receipt of letter Patient understanding verified by teach back: Yes Total time spent on phone: 20 Patient Contacted, Identity verified by full name and Date of . Patient informed that he originally submitted medical form to [facility] on 03/28/24. Patient stated that this form had been completed by either PCP or Endocrinology. Patient further stated that he did not have a copy of the original medical form. RNCM unable to find ref to form or copy in cprs. Patient further added that [facility] sent letter on 05/31/24 seeking additional information. RNCM attempted to contact Office of the rock breaker [phone] to obtain copy of original medical form as ref above; RNCM was unable to speak to any Staff Member. RNCM will continue to search for original medical form. Patient verbalized good understanding. /reed/ RADHA GARCIA RN REGISTERED NURSE Signed: 06/28/2024 09:52 06/28/2024 ADDENDUM STATUS: COMPLETED RNCM able to speak to Leah/medical review unit/[employer] [place] who stated that her office could not release any information associated with original medical form dated 03/28/24. Further, Leah stated that PCP could either complete questions 1 and 2 or Vet could submit new medical report for [place]. /reed/ RADHA GARCIA RN REGISTERED NURSE Signed: 06/28/2024 10:05 Receipt Acknowledged By: 06/28/2024 13:00 /es/ Devin Carter MD. Staff Physcian. 06/28/2024 ADDENDUM STATUS: COMPLETED unsure about what they are stating in your note above. alerting RN Waqas Holley /reed/ Devin Carter MD. Staff Physcian. Signed: 06/28/2024 13:03 Receipt Acknowledged By: * AWAITING SIGNATURE * RADHA NGUYEN [facility]
--- OUTSIDE RECORDS SUMMARY | 2024-09-23 11:30 | XMS_ITS | Encounter Summary ---
Author Name [facility] [place] Organization [facility] [place] Address [address] [place] [address] Care Team Providers Care Processing Tech Name Role Phone DEVIN CARTER Primary Care Provider Unavailabl e Insurance Providers: [...] PART A Jun 01, 2012 PART A [id number] PF90 SENA FUENTES VID PATIENT MEDICARE (WNR) MEDICARE (M) PART B Jun 01, 2012 PART B [id number] PILOMARYSEMAKENNA,SENA VID PATIENT MEDICARE (WNR) MEDICARE (M) PART A Jun 01, 2012 PART A [id number] PF90 ALFREDO,SENA VID PATIENT MEDICARE (WNR) MEDICARE (M) PART B Jun 01, 2012 PART B [id number] [id number] SENA FUENTES VID PATIENT MEDICARE (WNR) MEDICARE (M) PART A Jun 01, 1999 PART A [id number] PF90 SENA FUENTES PATIENT Selected Encounter This section includes the information on record at [place] for the Encounter. Date/Time Encounter Type Encounter Description Reason Pro vider Source IHE Encounter Template Text not used by [place] Advance Directives: All historical and current Section Date Range: From patient's date of to the date document was created. This section includes ALL of a patient's completed or amended [place] Advance and Rescinded Directives. The entries below indicate that a directive exists for the patient, but an actual copy is not included with this document. The data comes from all [place] facilities. Date Advance Directives Provider Source Nov 19, 2015 ADVANCE DIRECTIVE DISCUSSION JENNIFER LONDONO [facility]
--- OUTSIDE RECORDS SUMMARY | 2024-09-23 11:31 | XMS_ITS | Encounter Summary ---
Author Name [facility] [place] Organization [facility] [place] [facility] [place] Address [address] [place] [address] Care Team Providers Care Cleaner Industrial Name Role Phone RAUL, DEVIN Primary Care [...] PART A Jun 01, 2012 PART A [id number] PILOMARYSEMAKENNA,SENA VID PATIENT MEDICARE (WNR) MEDICARE (M) PART B Jun 01, 2012 PART B [id number] PILOMARYSEEN,DA VID PATIENT MEDICARE (WNR) MEDICARE (M) PART A Jun 01, 2012 PART A [id number] PILOMARYSEEN,DA VID PATIENT MEDICARE (WNR) MEDICARE (M) PART B Jun 01, 2012 PART B [id number] [phone] GOCKEN,DA VID PATIENT MEDICARE (WNR) MEDICARE (M) PART A Jun 01, 1999 PART A [id number] SENA FUENTES PATIENT Selected Encounter This section includes the information on record at [place] for the Encounter. Date/Time Encounter Type Encounter Description Reason Provider Source Dec 15, 2023 10:40 AM OFFICE O/P EST MOD 30 MIN RENAL/NEPHROL(EXCE PT DIALYSIS) ICD-10-CM N18.2 Chronic kidney disease, stage 2 (mild) ASHUTOSH SIMS [facility] Encounter Template Text not used by [place] Assessments - Encounter Diagnoses This section includes the primary and secondary diagnoses documented for the Encounter. 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 This section includes future appointments and future orders which are active, pending or scheduled. Future Appointments This section includes appointments that were scheduled to occur 6 months from the date of the Encounter, up to a maximum of 20 appointments. The data comes from all [place] treatment facilities. Appointment Date/Time Appointment Type Appointme nt Facility Name Dec 24, 2023 09:45 AM AMBULATORY - SURGERY [facility] Jan 21, 2024 01:00 PM AMBULATORY - SURGERY [facility] Feb 08, 2024 07:25 AM AMBULATORY - MEDICINE [facility] Apr 01, 2024 01:30 PM AMBULATORY - NONE [facility] Apr 04, 2024 11:30 AM AMBULATORY - SURGERY [facility] Apr 06, 2024 11:00 AM AMBULATORY - MEDICINE [facility] Apr 06, 2024 01:00 PM AMBULATORY - MEDICINE [facility] Apr 18, 2024 11:00 AM AMBULATORY - MEDICINE [facility] May 03, 2024 03:00 PM AMBULATORY - SURGERY [facility] May 11, 2024 10:00 AM AMBULATORY - MEDICINE [facility] May 11, 2024 11:00 AM AMBULATORY - MEDICINE [facility] May 19, 2024 01:00 PM AMBULATORY - MEDICINE [facility] Jun 15, 2024 01:00 PM AMBULATORY - MEDICINE [facility] Active, Pending, and Scheduled Orders This section includes a listing of several types of active, pending, and scheduled orders, including clinic medications orders, diagnostic test orders, procedure orders and consult orders; where the start date of the order is 45 days before the date of the Encounter or 45 days after the date of theEncounter. The data comes from all [place] treatment facilities. Test Date/Time Test Type Test Details Facility Name Dec 15, 2023 12:00 AM Laboratory - Chemi stry Order BASIC METABOLIC PANEL GREEN LI/HEP BLD/PLAS PLASMA SP [facility] Dec 15, 2023 12:00 AM Laboratory - Chemi stry Order MAGNESIUM GREEN LI/HEP BLD/PLAS PLASMA [facility] Lab Results: +/- 30 days of the [...] Unit Interpretation Reference Range Specimen Type Comment Dec 24, 2023 08:15 AM [facility] URINE STONE PNL (24HR-STL-PB) 24-HOUR URINE Specimen Type: 24-HOUR URINE Comment: THE PATIENT HAS: Hyperoxaluria Hypocitraturia Low urinary pH SUPERSATURATION INDEX WITH RESPECT TO: Uric acid SUSPECTED PROBLEM IS: 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 Uric ACID: 2.78 H Reference range<2.00 Ordering Provider: BUBBA SIMS Report Released Date/Time: Dec 15, 2023 11:05 AM Reporting Lab: [facility] [address] [facility] [id number] Performing Lab: [facility] [id number] [place] [address] VOLUME 2.66 >2.00 OXALATE 45 H <45 CITRIC ACID 242 L >320 SULFATE,U-PB STL 17 <30 CREATININE URINE/OTHERS [phone] POTASSIUM URINE/OTHERS 53 19-135 SODIUM URINE/OTHERS 145 <200 CALCIUM URINE/OTHERS 116 <250.0 PHOSPHOROUS URINE/OTHERS 1224 H <1100 URIC ACID URINE/OTHERS 513 <700 MAGNESIUM URINE/OTHER 123 >60.0 .INTERP comment +BRUSHITE 0.10 <2.00 PH(SO) 5.1 L 5.5-7.0 +CALCIUM OXALATE 0.81 <2.00 +SODIUM-URATE 0.34 <2.00 Dec 09, 2023 10:53 AM [facility] PROTEIN.URINE(STL) URINE Specimen Type: URINE No comment entered. Ordering Provider: BUBBA SIMS Report Released Date/Time: Dec 02, 2023 03:33 PM Reporting Lab: [facility] [address] [facility] [phone] Performing Lab: [facility] [address] [facility] [address] PROTEIN URINE 18.8 mg/dL Dec 09, 2023 10:53 AM [facility] MICRAL/CREAT PROFILE (STL) URINE Specimen Typ e: URINE No comment entered. Ordering Provider: BUBBA SIMS Report Released Date/Time: Dec 02, 2023 03:33 PM Reporting Lab: [facility] [address] [facility] [address] Performing Lab: [facility] [address] [facility] [address] URINE ALBUMIN (PB-STL) 58.8 mg/L uACR (STL) 44 mg/g H 0-29 CREATININE URINE/OTHERS 133.2 mg/dL 63-1 66 Dec 09, 2023 10:53 AM [facility] CBC BLOOD Specimen Type: BLOOD No comment entered. Ordering Provider: BUBBA SIMS Report Released Date/Time: Dec 02, 2023 03:33 PM Reporting Lab: [address] [address] Performing Lab: [address] [address] WBC 6.5 10*3/uL 3.6-11.2 RBC 4.60 10*6/uL 4.10-5.70 HGB 13.1 g/dL 13.1-16.8 HCT 41.7 38.2-48.4 MCV 90.7 fL 80.0-100.0 MCH 28.5 pg 27.0-34.0 MCHC 31.4 g/dL L 33.0-36.0 PLT 205 10*3/uL 150-400 MPV 9.7 fL 7.5-11.2 RDW 14.7 11.8-15.1 LYMPHOCYTES, AUTO % 16 MONOCYTES, AUTO % 10 NEUTROPHILS, AUTO % 72 EOSINOPHILS, AUTO % 2 BASOPHILS, AUTO % 0 LYMPHOCYTES, ABSOLUTE 1.05 10*3/uL 0.77- 4.50 MONOCYTES, ABSOLUTE 0.62 10*3/uL 0.19-0. 80 NEUTROPHILS, ABSOLUTE 4.66 10*3/uL 2.10- 8.00 EOSINOPHILS, ABSOLUTE 0.12 10*3/uL 0.00- 0.60 BASOPHILS, ABSOLUTE 0.02 10*3/uL 0.00-0. 20 Nov 30, 2023 12:37 PM [facility] MAGNESIUM PLASMA Specimen Type: PLASM A Comment: No hemolysis noted. Ordering Provider: DIEGO CASE Report Released Date/Time: Nov 30, 2023 12:04 PM Reporting Lab: [place] [id number] Performing Lab: [facility] [address] [facility] [phone] MAGNESIUM 1.9 mg/dL 1.6-2.6 Nov 30, 2023 12:37 PM [facility] BASIC METABOLIC PANEL PLASMA Specimen Type: PL ASMA Comment: No hemolysis noted. Ordering Provider: DIEGO CASE Report Released Date/Time: Nov 30, 2023 12:04 PM Reporting Lab: [facility] [address] [facility] [address] Performing Lab: [facility] [address] [facility] [phone] CREATININE 1.14 mg/dL 0.7-1.3 UREA NITROGEN 19.1 mg/dL 9.0-25.0 GLUCOSE 158 mg/dL H 72-99 SODIUM 138 meq/L 136-145 POTASSIUM 4.9 meq/L 3.5-5 CHLORIDE 105 meq/L 98-107 CARBON DIOXIDE 24 meq/L 22-31 CALCIUM 9.4 mg/dL 8.4-10.4 EGFR (CKD-EPI 2020) 66.7 >60 Vital Signs: All taken on the encounter date This section contains inpatient and outpatient Vital Signs collected on the date of the Encounter. Date/Time Temperature Pulse Blood Pressure Respiratory Rate SP02 Pain Height Weight Body Mass Index Source Dec 15, 2023 10:29 AM 98.5 89 121/75 16 95 186.8 27 [facility] Social History: Smoking Status (Most current) and Tobacco Use (All prior to encounter date) This section includes the most current, and the historical, smoking and tobacco- related health factors from the [place] facility where the Encounter took place. Current Smoking Status This section includes the most current smoking, or tobacco-related health factor, from the [place] facility where the Encounter took place. Date/Time Current Smoking Status Comment Lux ity October 15, 2023 06:15 AM ORYX ADMIT TOBACCO SCREEN NO [facility] Tobacco Use History This section includes a history of the smoking, or tobacco-related health factors, that were collected on or before the date of the Encounter. The data comes from the [place] facility where the Encounter took place. Date/Time Smoking Status/Tobacco Use Comment F acility October 14, 2022 01:17 PM VA-TOBACCO NEVER USED [facility] Mar 13, 2022 05:25 PM ORYX ADMIT TOBACCO SCREEN NO [facility] Apr 20, 2019 11:02 AM VA-TOBACCO FORMER USER [facility] Apr 20, 2019 11:02 AM VA-TOBACCO QUIT 15 YRS OR MORE [facility] Nov 19, 2015 09:23 AM LIFETIME NON-USER OF TOBACCO [facility] May 02, 2014 08:44 AM LIFETIME NON-USER OF TOBACCO [facility] Jun 15, 2013 04:36 PM LIFETIME NON-USER OF TOBACCO [facility] Jun 17, 2012 09:31 AM LIFETIME NON-USER OF TOBACCO [facility] Advance Directives: All historical and current Section Date Range: From patient's date of to the date document was created. This section includes ALL of a patient's completed or amended [place] Advance and Rescinded Directives. The entries below indicate that a directive exists for the patient, but an actual copy is not included with this document. The data comes from all [place] facilities. Date Advance Directives Provider Source Nov 19, 2015 ADVANCE DIRECTIVE DISCUSSION JENNIFER LONDONO [facility] Encounter Notes: All associated encounter notes This section contains the clinical notes associated to the Encounter. Date/Time Encounter Note(s) Provider Source Dec 15, 2023 10:43 AM NEPHROLOGY OUTPATI ENT NOTE: LOCAL TITLE: NEPHROLOGY OUTPATIENT FOLLOW UP [facility] STANDARD TITLE: NEPHROLOGY OUTPATIENT NOTE DATE OF NOTE: DEC 15, 2023@10:43 ENTRY DATE: DEC 15, 2023@10:43:09 AUTHOR: BUBBA SIMS EXP COSIGNER: URGENCY: STATUS: COMPLETED 78yM with pmh of IDDM type 1,HTN,CAD with multiple interventions s/p PCI stents,pacemaker,PVD,Kidne y stone,HLD following for ckd and hyperkalemia. Denied any new c/o. Pt had CABG and had cardiac arrest resuscitated as he had defibibrillator. He got cardiac cath in September, s/p CABG x3 (ABBOTT->LAD, Left radial artery to OM and SVG to PDA) at [facility] on 10/21[facility]2023. Pt was taken off entresto,isosorbide and metoprolol was decreased. He had episode of hypotension after he had increased metoprolol 50mg and resumed entresto. He has not taken any bp meds for past 11 days and he is concerned about resuming losartan and metoprolol. Bp was 82/52 after exercise yesterday. No lightheadednes/cough/sob/l eg swelling. Urinating well with no issues. Denied blood in urine/flank pain/burning urination. No nsaids use. No recent kidney stone flare recently. Pt is active and he does not need rehab. Medications reviewed with patient and discrepancies reviewed Active and Recently Outpatient Medications (including Supplies): Active Outpatient Medications Status 1) ASPIRIN 81MG EC TAB TAKE ONE TABLET BY MOUTH ONCE A ACTIVE DAY TAKE WITH FOOD. 2) ATORVASTATIN CALCIUM 40MG TAB TAKE ONE-HALF TABLET BY ACTIVE MOUTH EVERY EVENING FOR CHOLESTEROL. REPORT ANY UNEXPLAINED MUSCLE PAIN/WEAKNESS TO PROVIDER. 3) CARBAMIDE PEROXIDE 6.5% OTIC SOLN INSTILL 5 DROPS IN ACTIVE BOTH EARS THREE TIMES PER WEEK FOR EAR WAX BLOCKAGE 4) CHOLECALCIF 50MCG (D3-2,000UNIT) TAB TAKE ONE TABLET ACTIVE BY MOUTH ONCE A DAY 5) CITALOPRAM HYDROBROMIDE 40MG TAB TAKE ONE-HALF TABLET ACTIVE BY MOUTH EVERY MORNING 6) GABAPENTIN 300MG CAP TAKE ONE CAPSULE BY MOUTH THREE ACTIVE (S) TIMES A DAY FOR PAIN 7) GLUCAGON 1MG/KAROLYN INJ EMERGENCY KIT INJECT 1MG/1VIAL ACTIVE INTRAMUSCULARLY NEEDED PLEASE USE FOR EMERGENT LOW BLOOD GLUCOSE THAT DOES NOT RESPOND TO ORAL GLUCOSE 8) GLUCOSE SENSOR DEXCOM G6 USE 1 SENSOR UNDER THE SKIN ACTIVE EVERY 10 DAYS TO MONITOR GLUCOSE READINGS 9) INSULIN SYRINGE 1ML 30G 12MM USE 1 SYRINGE UNDER THE ACTIVE SKIN ONCE A DAY FOR DIABETES TO USE WITH INSULIN 10) INSULIN,ASPART,HUMAN 100 UNIT/ML INJ INJECT 25 UNITS ACTIVE UNDER THE SKIN THREE TIMES A DAY BEFORE MEALS - (DISCARD ANY UNUSED PORTION 28 DAYS AFTER OPENING) USE SLIDING SCALE DIRECTED BY DIABETES PHYSICIAN. *MAX OF 100 UNITS PER DAY* 11) INSULIN,GLARGINE-YFGN 100UNIT/ML INJ INJECT 46 UNITS ACTIVE UNDER THE SKIN ONCE A DAY (AT SAME TIME EACH DAY) - (DISCARD ANY UNUSED PORTION 28 DAYS AFTER OPENING) 12) KETOROLAC TROMETHAMINE 0.5% OPH SOLN INSTILL 1 DROP ACTIVE IN LEFT EYE FOUR TIMES A DAY FOR POSTOPERATIVE EYE PAIN 13) LOSARTAN 25MG TAB TAKE ONE-HALF TABLET BY MOUTH ONCE ACTIVE A DAY FOR HIGH BLOOD PRESSURE 14) METOPROLOL SUCCINATE 25MG SA TAB TAKE ONE-HALF TABLET ACTIVE BY MOUTH ONCE A DAY FOR MYOCARDIAL INFARCTION SWALLOW WHOLE, DO NOT CRUSH OR CHEW (TABLETS MAY BE CUT IN HALF). 15) PANTOPRAZOLE NA 40MG EC TAB TAKE ONE TABLET BY MOUTH ACTIVE EVERY MORNING BEFORE A MEAL TAKE 30 MINUTES BEFORE MEAL(S) 16) TAMSULOSIN HCL 0.4MG CAP TAKE ONE CAPSULE BY MOUTH ACTIVE EVERY EVENING APPROXIMATELY 30 MINUTES AFTER THE SAME MEAL EACH DAY Inactive Outpatient Medications Status 1) NITROGLYCERIN 0.4MG SL TAB DISSOLVE ONE TABLET UNDER THE TONGUE ONE-TIME NEEDED FOR CHEST PAIN; IF NO IMPROVEMENT AFTER FIRST DOSE CALL . MAY TAKE 2 ADDITIONAL DOSES, 5 MINUTES APART Exam: Vitals: BP: 121/75 P: 89 R: 16 WT: 186.8 T: 98.5 SHEENT:PERRLA,No JVD/icterus/conj pallor CHEST:lungs clear B/L CVS:S1S2+ NO MRG ABD: Soft non-tender and no organomegaly EXTREMITIES: trace LE Edema NEURO:non focal SKIN: no acute rash PSYCHIATRY: appropriate affect Labs: HGB 13.1 g/dL 12/09/2023 10:53 PLT 205 10*3/uL 12/09/2023 10:53 WBC 6.5 10*3/uL (07/10/24 10:53) SODIUM 138 mEq/L 11/30/2023 12:37 POTASSIUM 4.9 mEq/L 11/30/2023 12:37 CHLORIDE 105 mEq/L 11/30/2023 12:37 UREA NITROGEN 19.1 mg/dL 11/30/2023 12:37 CREATININE 1.14 mg/dL 11/30/2023 12:37 CALCIUM 9.4 mg/dL 11/30/2023 12:37 PROTEIN 6.5 g/dL 09/03/2023 13:49 ALBUMIN 4.1 g/dL 09/03/2023 13:49 ALKALINE PHOSPHATASE 158 H U/L 09/03/2023 13:49 ALT/SGPT 23 U/L 09/03/2023 13:49 AST/SGOT 27 U/L 09/03/2023 13:49 TOTAL BILIRUBIN 1.1 mg/dL 09/03/2023 13:49 CARBON DIOXIDE 24 mEq/L 11/30/2023 12:37 GLUCOSE 158 H mg/dL 11/30/2023 12:37 EGFR (CKD-EPI 2020) 66.7 11/30/2023 12:37 PHOSPHOROUS 3.5 mg/dL 05/05/2023 11:39 HGA1C 6.8 H % 09/03/2023 13:49 ____ Collection DT Specimen Test Name Result Units Ref Range 05/05/2023 11:39 SERUM DNA Ab negative TITER NEG Urine Micro only Collection DT Specimen Test Name Result Units Ref Range 05/05/2023 11:41 URINE URINE RBC/HPF 1 /HPF 0 - 5 01/20/2023 13:06 URINE GRANULAR CASTS 1 /LPF Ref: None 05/05/2023 11:41 URINE URINE WBC/HPF <1 /HPF 0 - 5 05/05/2023 11:41 URINE SQUAMOUS EPITH. <1 /HPF 0 - 5 01/20/2023 13:06 URINE TRANS. EPITH. <1 /HPF 0 - 1 01/20/2023 13:06 URINE HYALINE CASTS 1 /LPF 0 - 5 CREATuF: 133.2 (12/09/23 10:53) M/CREAT: 44 (12/09/23 10:53) MICRAL: 58.8 (12/09/23 10:53) Impression for US RENAL COMPLETE, 05/18/23 1. Nonobstructing calculus within the mid pole of the left kidney measuring 1 cm. 2. Simple 11.8 cm right renal cyst. 3. The bladder wall appears trabeculated which may be related to chronic outlet obstruction. Dictated by Yuriy Montano DO. I, Ron Guadalupe, have reviewed the images and report and concur with these findings. A/P #Ckd stage G2 A2 due to Dm,Htn and renovascular disease. -Renal function rpreserved, creat 1 to 1.2 -Strict control of Dm to to avoid renal complications. -Avoid nsaids/contrast/nephrotoxi ns, d/c Naproxen -Encouraged oral hydration -Pt has proteinuria, uacr improving entresto on hold for hypotension and is changed to losartan -Discussed renal u/s results re kidney stone and he has CT ordered for f/u -Hyperkalemia is resolved and continue low k diet -Pt is started on Flomax for BPH and LUTS improved -Advised to increase hydration and to avoid hypotension #HTN/Volume with HFrEF: Bp low and pt is not taking meds Continue to monitor and resume losartan/metoprolol as tolerated per cardiology Pt has trace LE edema and advised to restrict high sodium foods #Kidney Stone: no flare for >7 years and he has microscopic hematuria Pt had renal u/s with no stones in 2018 and has 1 cm left kidney stone non- obstructing in 05/23. Pt saw urology in 07/[address] scan scheduled in 01/2024 and pt will schedule today Encouraged oral hydration to have 2 liter/day. Discussed low animal protein and low salt diet, reiterated today F/u 24 hr urine for metabolic risk evaluation and instructions provided RTC 12 months /es/ BUBBA SIMS MD STAFF PHYSICIAN,NEPHROLOGY Signed: 12/15/2023 11:16 BUBBA SIMS [facility]
--- OUTSIDE RECORDS SUMMARY | 2024-09-23 11:31 | XMS_ITS | Encounter Summary ---
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 Date/Time Encounter Type Encounter Description Reason Provider Source Nov 03, 2023 12:17 PM OFF/OP CNSLTJ NEW/EST LOW 30 CARDIAC SURGERY ICD-10-CM 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[place] coronary artery w/o ang pctrs ANDREI VILLANUEVA IHDeng Encounter Template Text not used by [place] Assessments - Encounter Diagnoses This section includes the primary and secondary diagnoses documented for the Encounter. Date/Time Primary/Secondary Diagnosis Diagnosis Name Provider Source Nov 03, 2023 12:20 PM PRIMARY Athscl heart disease of [place] coronary artery [facility] Nov 03, 2023 12:20 PM SECONDARY Hyperlipidemia, unspecified ANDREI VILLANUEVA [facility] Nov 03, 2023 12:20 PM SECONDARY Mixed hyperlipidemia ANDREI VILLANUEVA [facility] Nov 03, 2023 12:20 PM SECONDARY Peripheral vascular disease, unspecified ANDERI VILLANUEVA [facility] Nov 03, 2023 12:20 PM SECONDARY Presence of cardiac pacemaker ANDREI VILLANUEVA [facility] Nov 03, 2023 12:20 PM SECONDARY 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 This section includes future appointments and future orders which are active, pending or scheduled. Future Appointments This section includes appointments that were scheduled to occur 6 months from the date of the Encounter, up to a maximum of 20 appointments. The data comes from all [place] treatment facilities. Appointment Date/Time Appointment Type Appointme nt Facility Name Nov 06, 2023 08:00 AM AM[facility]ULATORY [facility] NONE [facility] Nov 19, 2023 01:00 PM AMBULATORY - SURGERY [facility] Nov 30, 2023 11:30 AM AMBULATORY - MEDICINE [facility] Dec 09, 2023 10:00 AM AMBULATORY - MEDICINE [facility] Dec 15, 2023 10:40 AM AMBULATORY - MEDICINE [facility] Dec 24, 2023 09:45 AM AMBULATORY - SURGERY [facility] Jan 21, 2024 01:00 PM AMBULATORY - SURGERY [facility] Feb 08, 2024 07:25 AM AMBULATORY - MEDICINE [facility] Apr 01, 2024 01:30 PM AMBULATORY - NONE . [facility] Apr 04, 2024 11:30 AM AMBULATORY - SURGERY [facility] Apr 06, 2024 11:00 AM AMBULATORY - MEDICINE [facility] Apr 06, 2024 01:00 PM AMBULATORY - MEDICINE [facility] Apr 18, 2024 11:00 AM AMBULATORY - MEDICINE [facility] May 03, 2024 03:00 PM AMBULATORY - SURGERY [facility] Active, Pending, and Scheduled Orders This section includes a listing of several types of active, pending, and scheduled orders, including clinic medications orders, diagnostic test orders, procedure orders and consult orders; where the start date of the order is 45 days before the date of the Encounter or 45 days after the date of theEncounter. The data comes from all [place] treatment facilities. Test Date/Time Test Type Test Details Facility Name October 15, 2023 12:00 AM Laboratory - Blood Bank Order ABO/RH - LAB BLOOD [facility] October 15, 2023 06:00 AM Laboratory - Blood Bank Order TYPE & SCREEN - LAB BLOOD WC [facility] Dec 15, 2023 12:00 AM Laboratory - Chemi stry Order BASIC METABOLIC PANEL GREEN LI/HEP BLD/PLAS PLASMA SP [facility] Dec 15, 2023 12:00 AM Laboratory - Chemi stry Order MAGNESIUM GREEN LI/HEP BLD/PLAS PLASMA [facility] Lab Results: +/- 30 days of the [...] Type Comment Nov 30, 2023 12:37 PM [facility] MAGNESIUM PLASMA Specimen Type: PLASMA Comment: No hemolysis noted. Ordering Provider: DIEGO CASE Report Released Date/Time: Nov 30, 2023 12:04 PM Reporting Lab: [place] [id number] [facility] [place] [address] Performing Lab: [address] [address] MAGNESIUM 1.9 mg/dL 1.6-2.6 Nov 30, 2023 12:37 PM [facility] BASIC METABOLIC PANEL PLASMA Specimen Type: PL ASMA Comment: No hemolysis noted. Ordering Provider: DIEGO CASE Report Released Date/Time: Nov 30, 2023 12:04 PM Reporting Lab: [address] [address] Performing Lab: [address] [address] CREATININE 1.14 mg/dL 0.7-1.3 UREA NITROGEN 19.1 mg/dL 9.0-25.0 GLUCOSE 158 mg/dL H 72-99 SODIUM 138 meq/L 136-145 POTASSIUM 4.9 meq/L 3.5-5 CHLORIDE 105 meq/L 98-107 CARBON DIOXIDE 24 meq/L 22-31 CALCIUM 9.4 mg/dL 8.4-10.4 EGFR (CKD-EPI 2020) 66.7 >60 October 16, 2023 09:28 PM [facility] GLUCOSE,BLOOD-poct (STL) BLOOD Specimen Type: BLOOD Comment: Test Performed by: [id number] Meter #: [id number] Ordering Provider: SOLOMON DEMARCO Report Released Date/Time: October 16, 2023 11:21 PM Reporting Lab: [facility] [address] [facility] [place] [address] Performing Lab: [address] [address] GLUCOSE,BLOOD-poct (STL) 97 mg/dL 72-October 16, 2023 04:56 PM [facility] GLUCOSE,BLOOD-poct (STL) BLOOD Specimen Type: BLOOD Comment: Test Performed by: [id number] Meter #: [id number] Ordering Provider: SOLOMON DEMARCO Report Released Date/Time: October 16, 2023 05:15 PM Reporting Lab: [address] [address] Performing Lab: [address] [address] GLUCOSE,BLOOD-poct (STL) 175 mg/dL H -October 16, 2023 11:33 AM [facility] GLUCOSE,BLOOD-poct (STL) BLOOD Specimen Type: BLOOD Comment: Test Performed by: [id number] Meter #: [id number] Ordering Provider: SOLOMON DEMARCO Report Released Date/Time: October 16, 2023 12:22 PM Reporting Lab: [address] [address] Performing Lab: [address] [address] GLUCOSE,BLOOD-poct (STL) 167 mg/dL H 72-October 16, 2023 06:59 AM [facility] BASIC METABOLIC PANEL PLASMA Specimen Type: PL ASMA Comment: No hemolysis noted. Ordering Provider: CYNTHIA CABRERA Report Released Date/Time: October 15, 2023 04:22 PM Reporting Lab: [address] [address] Performing Lab: [address] [address] CREATININE 1.09 mg/dL 0.7-1.3 UREA NITROGEN 21.4 mg/dL 9.0-25.0 GLUCOSE 132 mg/dL H 72-99 SODIUM 140 meq/L 136-145 POTASSIUM 4.5 meq/L 3.5-5 CHLORIDE 106 meq/L 98-107 CARBON DIOXIDE 26 meq/L 22-31 CALCIUM 9.5 mg/dL 8.4-10.4 EGFR (CKD-EPI 2020) 70.3 >60 October 16, 2023 06:59 AM [facility] CBC BLOOD Specimen Type: BLOOD No comment entered. Ordering Provider: CYNTHIA CABRERA Report Released Date/Time: October 15, 2023 04:22 PM Reporting Lab: [facility] [address] [facility] [address] Performing Lab: [address] [address] WBC 4.4 10*3/uL 3.6-11.2 RBC 5.28 10*6/uL [...] 2.7 1.0-7.0 October 16, 2023 06:30 AM [facility] GLUCOSE,BLOOD-poct (STL) BLOOD Specimen Type: BLOOD Comment: Test Performed by: [id number] Meter #: [id number] Ordering Provider: SOLOMON DEMARCO Report Released Date/Time: October 16, 2023 07:53 AM Reporting Lab: [place] [address] [facility] [address] Performing Lab: [place] [address] [facility] [address] GLUCOSE,BLOOD-poct (STL) 120 mg/dL H 72-October 15, 2023 08:59 PM [facility] GLUCOSE,BLOOD-poct (STL) BLOOD Specimen Type: BLOOD Comment: Test Performed by: [id number] Meter #: [id number] Ordering Provider: SOLOMON DMEARCO Report Released Date/Time: October 15, 2023 10:00 PM Reporting Lab: [address] [address] Performing Lab: [address] [address] GLUCOSE,BLOOD-poct (STL) 155 mg/dL H -October 15, 2023 04:22 PM [facility] GLUCOSE,BLOOD-poct (STL) BLOOD Specimen Type: BLOOD Comment: Test Performed by: [id number] Meter #: [id number] Ordering Provider: SOLOMON DEMARCO Report Released Date/Time: October 15, 2023 04:38 PM Reporting Lab: [address] [address] Performing Lab: [address] [address] GLUCOSE,BLOOD-poct (STL) 89 mg/dL -October 15, 2023 12:01 PM [facility] GLUCOSE,BLOOD-poct (STL) BLOOD Specimen Type: BLOOD Comment: Test Performed by: [id number] Meter #: [id number] Ordering Provider: GRETCHEN FREIRE Report Released Date/Time: October 15, 2023 12:12 PM Reporting Lab: [address] [address] Performing Lab: [address] [address] GLUCOSE,BLOOD-poct (STL) 144 mg/dL H 72-99 October 15, 2023 06:25 AM [facility] COVID-19 SCREENING PANEL (STL-PB) NASOPHARYNX Speci men [...] October 08, 2023 02:49 PM Reporting Lab: [facility] [address] [facility] [place] [address] Performing Lab: [address] [address] COVID-19 (STL-PB) Not Detected Not Detec ajit October 15, 2023 06:20 AM [facility] GLUCOSE,BLOOD-poct (L) BLOOD Specimen Type: BLOOD Comment: Test Performed by: [id number] Meter #: [id number] Ordering Provider: GRETCHEN FREIRE Report Released Date/Time: October 15, 2023 10:13 AM Reporting Lab: [facility] [address] [facility] [place] [address] Performing Lab: [facility] [address] [place] [address] GLUCOSE,BLOOD-poct (STL) 130 mg/dL H 72-99 October 15, 2023 06:20 AM [facility] PT/INR NEW (L-MA) PLASMA Specimen Type: PLAS MA No comment entered. Ordering Provider: GRETCHEN FREIRE Report Released Date/Time: October 08, 2023 02:49 PM Reporting Lab: [facility] [address] [facility] [place] [address] Performing Lab: [facility] [address] [place] [address] PROTIME 10.9 s 9.4-12.5 INR VALUE 1.0 {INR} October 15, 2023 06:20 AM [facility] BASIC METABOLIC PANEL PLASMA Specimen Type: PL ASMA Comment: No hemolysis noted. Ordering Provider: GRETCHEN FREIRE Report Released Date/Time: October 08, 2023 02:49 PM Reporting Lab: [address] [address] Performing Lab: [address] [address] CREATININE 1.10 mg/dL 0.7-1.3 UREA NITROGEN 25.9 mg/dL H 9.0-25.0 GLUCOSE 141 mg/dL H 72-99 SODIUM 139 meq/L 136-145 POTASSIUM 4.2 meq/L 3.5-5 CHLORIDE 106 meq/L 98-107 CARBON DIOXIDE 28 meq/L 22-31 CALCIUM 9.3 mg/dL 8.4-10.4 EGFR (CKD-EPI 2020) 69.6 >60 October 15, 2023 06:20 AM [facility] CBC BLOOD Specimen Type: BLOOD No comment entered. Ordering Provider: GRETCHEN FREIRE Report Released Date/Time: October 08, 2023 02:49 PM Reporting Lab: [address] [address] Performing Lab: [address] [address] WBC 4.8 10*3/uL 3.6-11.2 RBC 5.45 10*6/uL [...] 2.8 1.0-7.0 October 15, 2023 12:00 AM [facility] MRSA SURVL NARES DNA NARES Specimen Type: [...] October 15, 2023 04:06 PM Reporting Lab: [facility] [address] [facility] [address] Performing Lab: [address] [address] MRSA SURVL NARES DNA Negative Negative Social History: Smoking Status (Most current) and Tobacco Use (All prior to encounter date) This section includes the most current, and the historical, smoking and tobacco- related health factors from the [place] facility where the Encounter took place. Current Smoking Status This section includes the most current smoking, or tobacco-related health factor, from the [place] facility where the Encounter took place. Date/Time Current Smoking Status Comment Lxu ity October 15, 2023 06:15 AM ORYX ADMIT TOBACCO SCREEN NO [facility] Tobacco Use History This section includes a history of the smoking, or tobacco-related health factors, that were collected on or before the date of the Encounter. The data comes from the [place] facility where the Encounter took place. Date/Time Smoking Status/Tobacco Use Comment F acility October 14, 2022 01:17 PM VA-TOBACCO NEVER USED [facility] Mar 13, 2022 05:25 PM ORYX ADMIT TOBACCO SCREEN NO [facility] Apr 20, 2019 11:02 AM VA-TOBACCO FORMER USER [facility] Apr 20, 2019 11:02 AM VA-TOBACCO QUIT 15 YRS OR MORE [facility] Nov 19, 2015 09:23 AM LIFETIME NON-USER OF TOBACCO [facility] May 02, 2014 08:44 AM LIFETIME NON-USER OF TOBACCO [facility] Jun 15, 2013 04:36 PM LIFETIME NON-USER OF TOBACCO [facility] Jun 17, 2012 09:31 AM LIFETIME NON-USER OF TOBACCO [facility] Advance Directives: All historical and current Section Date Range: From patient's date of to the date document was created. This section includes ALL of a patient's completed or amended [place] Advance and Rescinded Directives. The entries below indicate that a directive exists for the patient, but an actual copy is not included with this document. The data comes from all [place] facilities. Date Advance Directives Provider Source Nov 19, 2015 ADVANCE DIRECTIVE DISCUSSION JENNIFER LONDONO [facility] Encounter Notes: All associated encounter notes This section contains the clinical notes associated to the Encounter. Date/Time Encounter Note(s) Provider Source Nov 03, 2023 12:17 PM CARDIOTHORACIC KAT [place] NOTE: LOCAL TITLE: CARDIAC SURGERY [facility] STANDARD TITLE: CARDIOTHORACIC SURGERY NOTE DATE OF NOTE: NOV 03, 2023@12:17 ENTRY DATE: NOV 03, 2023@12:17:18 AUTHOR: SHANNON VILLANUEVA EXP COSIGNER: URGENCY: STATUS: COMPLETED Life Sustaining Treatment Orders Mr. Soto had urgent CABG at [place] by Dr. Bernstein and was discharged Monday 10/30. I scheduled him an appt. in post op [facility] Surgery clinic for 11/18 @ 1pm. Thank you. Shannon Villanueva, RN, DNP, ACNP Cardiac Surgery /es/ SHANNON VILLANUEVA DNP RN NURSE PRACTITIONER/CLINICAL NURSE SPECIALIST Signed: 11/03/2023 12:20 SHANNON VILLANUEVA [facility]
--- OUTSIDE RECORDS SUMMARY | 2024-09-23 11:31 | XMS_ITS ---
Normal PEDAL PULSES: Includes palpation of dorsalis and posterior tibial pulses and signs/symptoms of vascular compromise like pain, pallor, parasthesia or paralysis. Present (even if diminished) SENSORY CHECK: Includes 10 gram Monofilament ([place]-Marylu) test of sensation. Intact (Greater than or equal to 80% of sites checked) Abnormal (Less than 80% of sites checked): Intact LOW-RISK: LOW RISK INFORMATION PROVIDED: 1. Advised patient not to walk barefoot. 2. Explained the importance of daily foot checks for changes. 3. Stressed the importance of daily foot hygiene, including bathing and complete drying. /reed/ Pily Carter MD. Staff Physcian. Signed: 04/18/2024 12:05 04/18/2024 ADDENDUM STATUS: COMPLETED PATIENT FITTED AND ISSUED ONE MEDIUM TENNIS ELBOW STRAP on 04/18/24 /reed/ Pily Carter MD. Staff Physcian. Signed: 04/18/2024 14:39 05/11/2024 ADDENDUM STATUS: COMPLETED - Small, moderately severe fixed defect c/w apical infarct. No evidence of reversibility to indicate stress-induced ischemia. # Moderate global hypokinesis with calculated LVEF of 34%. #. Dilated left ventricle. sp NM stress test 05/11/24 /reed/ Pily Carter MD. Staff Physcian. Signed: 05/11/2024 16:06 06/19/2024 ADDENDUM STATUS: COMPLETED FIT Negative 06/15/24 /reed/ Pily Carter MD. Staff Physcian. Signed: 06/19/2024 11:52 PILY CARTER [facility] Apr 18, 2024 11:32 AM PRIMARY CARE NOTE: LOCAL TITLE: PRIMARY CARE PROVIDER ESTABLISHED VISIT STL STANDARD TITLE: PRIMARY CARE NOTE DATE OF NOTE: APR 18, 2024@11:32 ENTRY DATE: APR 18, 2024@11:32:59 AUTHOR: PILY CARTER EXP COSIGNER: URGENCY: STATUS: COMPLETED PRIMARY CARE PROVIDER ESTABLISHED VISIT STL Has ADDENDA ESTABLISHED PATIENT [id number]: REASON FOR VISIT/CHIEF COMPLAINT: Vet is here for reg scheduled follow up HPI: continues to have hearing loss.vet has BL cerumen impaction. ordered debrox solution to use as directed and to schedule ear wash in 1 month and call audiology for hearing exam. c/o R elbow tendinitis off and on. ordered elbow brace PAST MEDICAL HISTORY: 1) Kidney stone (SNOMED CT 88770713) 2) Mixed hyperlipidemia (SNOMED CT 743654391) 3) Permanent cardiac pacemaker (SNOMED CT 793748197055488) 4) Elevated Liver Function Tests 5) Benign essential hypertension 6) Coronary artery disease 7) Hyperlipidemia 8) Elevated PSA 9) Peripheral vascular disease 10) Diabetes mellitus type 1 11) Hypoglycaemia 12) Congestive heart failure 13) Pneumonia 14) Neuropathy 15) Closed extraarticular fracture of distal radius 16) Exposure to potentially hazardous substance 17) Bilateral senile combined form cataracts of eyes 18) Lumbar radiculopathy ALLERGIES: CIPROFLOXACIN, LISINOPRIL ALLERGY REVIEW: Allergy list reviewed and remains current. MEDICATION RECONCILIATION: I have reviewed the patient's medication list with the patient and/or his/her care-college archivist. Handwritten corrections, additions and/or deletions were made to the list. Corrected Outpatient Medication List was provided to the patient/caregiver. Active Outpatient Medications (including Supplies): Active Outpatient [...] 10 DAYS TO MONITOR GLUCOSE READINGS 6) INSULIN,ASPART(EQV-NOVLG)1 00UN/ML FLXPEN INJECT 25 ACTIVE UNITS UNDER THE SKIN THREE TIMES A DAY BEFORE MEALS FOR DIABETES ADMINISTER 10 MINUTES BEFORE FOOD DIRECTED. REFRIGERATE UN-OPENED PENS. DISCARD CARTRIDGE 28 DAYS AFTER OPENING. USES UP TO 100 UNITS THROUGHOUT THE DAY 7) INSULIN,GLARGINE-YFGN 100UNIT/ML PEN 3ML INJECT 46 ACTIVE UNITS UNDER THE SKIN ONCE A DAY FOR DIABETES ADMINISTER AT SAME TIME EACH DAY DIRECTED. DISCARD ANY OPEN CARTRIDGE AFTER 28 DAYS. 8) KETOROLAC TROMETHAMINE 0.5% OPH SOLN INSTILL [...] (TABLETS MAY BE CUT IN HALF). 11) NEEDLE,PEN 31G,5MM USE 1 NEEDLE UNDER THE SKIN 5 ACTIVE TIMES A DAY FOR INJECTION ON INSULIN 12) ORACIT SOLN TAKE 15 ML BY MOUTH TWICE A DAY FOR ACTIVE PREVENTION OF KIDNEY STONES (MIX WITH 4 OUNCES OF WATER PRIOR TO DRINKING) 13) TAMSULOSIN HCL 0.4MG CAP TAKE ONE CAPSULE [...] MOUTH ACTIVE EVERY MORNING BEFORE A MEAL 17 Total Medications REVIEW OF SYSTEMS: except as in HPI above GENERAL: no fever, no weight loss HEENT: denies vertigo, no visual problems PULMONARY: denies SOB CARDIAC: denies chest pain, denies palpitations GI: no change in appetite, no nausea, no vomiting, no abd pain, no diarrhea : no nocturia, no polyuria, no dysuria, no hematuria EXT: denies pedal edema, no arthritis PHYSICAL EXAMINATION: Male General appearance: VITALS (most recent, as listed in the electronic record): B/P: 129/79 (04/18/2024 11:02) Pulse: 89 (04/18/2024 11:02) Temperature: 97.9 F [36.6 C] (04/18/2024 11:02) Weight: 191.4 lb [86.82 kg] (04/18/2024 11:02) Height: 70 in [177.8 cm] (04/18/2024 11:02) BMI: 27.5 Pain: 0 (04/18/2024 11:) (0-10 scale) Please also see Exam in Assessment/ Plan note. GENERAL:cooperative,nad. HEENT:PERRL, EOMI,oropharynx moist. NECK:supple, no JVD, no lymphadenopathy, thyromegaly, no carotid bruit. CVS:RRR, no murmurs. LUNGS:CTA. ABD:soft, NT, BS + BACK:no CVA tenderness. EXT:no edema PPP. NEURO:A+O X 3 DATA REVIEW: HbA1C: HGA1C 6.7 H % 04/06/2024 11:43 Lipid Panel: TRIGLYCERIDE 101 mg/dL 04/06/2024 11:43 CHOLESTEROL 145 mg/dL 04/06/2024 11:43 HDL(New) 41 mg/dL 04/06/2024 11:43 CALCULATED LDL 84 mg/dL 04/06/2024 11:43 CMP: SODIUM 141 mEq/L 04/06/2024 11:43 POTASSIUM 4.9 [...] 11:43 EGFR (CKD-EPI 2020) 68.1 04/06/2024 11:43 CBC: WBC 5.9 10*3/uL 02/08/2024 08:28 RBC [...] IMMATURE PLT FRACTION 3.4 % 02/08/2024 08:28 PSA: PROST. SPECIFIC AG.(PB-STL) 3.630 ng/mL 10/15/2022 10:41 TSH: TSH 3.618 uIU/mL 02/08/2024 08:28 INR: INR VALUE 1.0 INR 10/15/2023 06:20 PROTIME 10.9 sec 10/15/2023 06:20 UA: URINE COLOR Light-Yellow 05/05/2023 11:41 APPEARANCE Clear 05/05/2023 11:41 U.PH 5.5 05/05/2023 11:41 U.BILIRUBIN Negative mg/dL 05/05/2023 11:41 U.NITRITE Negative mg/dL 05/05/2023 11:41 URINE RBC/HPF 1 /HPF 05/05/2023 11:41 URINE WBC/HPF <1 /HPF 05/05/2023 11:41 SQUAMOUS EPITH. <1 /HPF 05/05/2023 11:41 TRANS. EPITH. <1 /HPF 01/20/2023 13:06 MUCUS RARE /LPF 01/20/2023 13:06 GRANULAR CASTS 1 /LPF 01/20/2023 13:06 HYALINE CASTS 1 /LPF 01/20/2023 13:06 Dilantin: ____ Digoxin: No data available for: DIGOXIN Chest x-ray: Impression for CHEST PORTABLE, 02/08/24, case 121 Interval development of left midlung and basilar atelectasis/scarring favored over pneumonia or malignancy, but chest CT recommended for further evaluation. Report dictated by Royer Ortega (resident services director) Mao Alcocer, have reviewed the images and report and concur with these findings. EK02/08/2024 11:05 Local Title: EKG CONSULT ST Standard Title: CARDIOLOGY DIAGNOSTIC STUDY CONSULT AUTHOR: CLINICAL,DEVICE PROXY SERVICE DOCUMENT IN VISTA IMAGING SEE FULL REPORT IN VISTA IMAGING SIGNATURE NOT REQUIRED SEE SIGNATURE IN VISTA IMAGING ([place] EKG) AUTO-INSTRUMENT DIAGNOSIS Procedure: 78024 12 Lead ECG Release Status: Released Off-Line Verified Date Verified: Feb 08, 2024@11:05:47 00689.2 Ventricular Rate: 89 BPM 30085.3 Atrial Rate: 89 BPM 24860.4 P-R Interval: 112 ms 38262.5 QRS Duration: 182 ms 16131.6 Q-T Interval: 470 ms 84496 QTC Calculation(Bazett)571 ms 64043.13 Calculated R [place]: -82 degrees 87973.14 Calculated T [place]: 132 degrees AV dual-paced rhythm Biventricular pacemaker detected Abnormal ECG When compared with ECG of 15-OCT-2023 06:40, Vent. rate has increased BY 39 BPM Administrative Closure: 02/08/2024 by: CLINICAL,DEVICE PROXY SERVICE < THE ABOVE NOTE IS UNSIGNED > - DRAFT COPY * DRAFT COPY * DRAFT COPY * DRAFT COPY * DRAFT COPY * DRAFT COPY - Result: Above target Follow-up Action: Data results reviewed with patient and/or caregiver. ASSESSMENT/PLAN: cmp, hgaic is normal on 04/06/24 mailed results. - BL Cerumen impaction: vet states he would like to see audiology, hearing is worsening. BL ear have wax impaction. Ordered debrox and scheduled ear wash. If no improvement rec to call audiology. - R elbow tendinitis; c/o R elbow tendinitis off and on. ordered elbow brace - CAD SP CABG x 3 /s/p multiple ESE (8)[facility] 11[facility]-[address] [facility] with his . He [facility] with Dr. Bernstein and [facility]. He was looking well. Stamina much improved. Started lasix 40mg PO daily.taking metoprolol 12.5 mg bid - DM, hx of type 1 DM (dx age 37)Hgaic is at goal at 6.7. vet is seeing endocrinology. He is taking lantus 45 units daily. Takes novolog 25 units TID AC meals.States he sometimes takes novolog even on empty stomach if his sugars are high. WARNED VET to NEVER take novolog if he is not eating, since this can cause lifethreatening hypoglycemia. - HLD:LDL is not at goal. increase atorvastatin to 80 mg every night from 40 mg every night and fish oil 1000 mcg bid - Elevated PSA: vet states he will not get a prostate biopsy.His PSA has been going up and down all these years. He would like to stop checking PSA. - hyperkalemia; Recommended vet to cut back on high potassium foods like banana, oranges and tomatoes.alerting SAMREEN Mendoza to advise vet. - Back pain/Mild degenerative changes lumbar spine /lumbar radiculopathy; sp x ray 01-20-23. saw PMR on 04-03-23. Vet states that back pain was improving, but yesterday he had some minor spasms.continue Naproxen 1 tab BID and increase gabapentin to 300 mg TID and will change naproxen to prn pain. ordered PMR consult for further evaluation. Vet states he does not want opioids. - Diabetic neuropathy:c/o foot pain, numbness and tingling BL foot. 2/2. continue gabapentin 300 mg TID. # H/O CHB s/p permanent pacemaker 12/10/2012: he saw Dr. Velasquez in consult ###Biventricular pacemaker placement by Interventional Cardiology on 03-13-22 #- PVD/ Intermittant claudication: improved with increased exercise and walking. does not smoke and takes daily asa. #- h/o acute pericarditis, resolved. - HTN:at goal bp. 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 Otherwise normal renal ultrasound. sp U/S renal 09-09-18, vet is Following up with renal. #- Kidney stone / h/o lithotripsy - JARRED: vet declined sleep study - Vit D def: stable.continue vit d 1000 units daily. - Depression: seeing pvt psychiatrist. Mood is stable with citalopram. - HME Declined shingles shot on 03-23-19 Drinks wine once in 2 week quit smoking 50 years ago HCV Negative 03/24/17 - FIT Negative 05-20-21 Weight: 187 lb [85.0 kg] (08/15/2013 Weight: 189 lb [85.9 kg] (05/02/2014 Weight: 190 lb [86.4 kg] (11/27/2014 Weight: 195 lb [88.6 kg] (11/19/2015 Weight: 190 lb [86.4 kg] (10/22/2017 Weight: 197.4 lb [89.7 kg] (07/27/2018 Weight: 196.8 lb [89.5 kg] (03/23/2019, BMI: 28.3 Weight: 185 lb 12-16-19 Weight: 193.4 lb [87.9 kg] (11/09/2020 , BMI: 27.8 Weight: 194.7 lb [88.5 kg] (05/01/2021 ,BMI: 28.0 Weight: 198.4 lb [89.99 kg] (09/09/2021 , BMI: 28.5 Weight: 195.6 lb [88.72 kg] (10/15/2022, BMI: 28.1 Weight: 194.2 lb [88.09 kg] (07/17/2023 ,BMI: 27.9 Weight: 191.4 lb [86.82 kg] (04/18/2024, BMI: 27.5 RETURN TO CLINIC: SUMMARY STATEMENT: Plan of care has been discussed with including expected therapeutic benefits and potential side effects of prescribed medication and treatments. verbalizes understanding and is in agreement with the plan of care. Patient was instructed to keep all scheduled appointments and contact senior contract specialist for any additional problems. PREVENTION & SCREENING: ALCOHOL: Clinical Reminder not due now or within a month BLOOD PRESSURE: Clinical Reminder not due now or within a month HEMOGLOBIN A1C: Clinical Reminder not due now or within a month PAVE Foot Check - L,N,P,PH,PO,PT,U: A complete foot check was completed at this encounter. VISUAL INSPECTION: Includes inspection for skin breaks, deformity, erythema, trauma, pallor on elevation, dependent rubor, nail deformities, extensive callus and pitting edema. Visual exam results: Normal PEDAL PULSES: Includes palpation of dorsalis and posterior tibial pulses and signs/symptoms of vascular compromise like pain, pallor, parasthesia or paralysis. Present (even if diminished) SENSORY CHECK: Includes 10 gram Monofilament ([place]-Marylu) test of sensation. Intact (Greater than or equal to 80% of sites checked) Abnormal (Less than 80% of sites checked): Intact LOW-RISK: LOW RISK INFORMATION PROVIDED: 1. Advised patient not to walk barefoot. 2. Explained the importance of daily foot checks for changes. 3. Stressed the importance of daily foot hygiene, including bathing and complete drying. /ankit Carter MD. Staff Physcian. Signed: 04/18/2024 12:05 04/18/2024 ADDENDUM STATUS: COMPLETED PATIENT FITTED AND ISSUED ONE MEDIUM TENNIS ELBOW STRAP on 04/18/24 /ankit Carter MD. Staff Physcian. Signed: 04/18/2024 14:39 05/11/2024 ADDENDUM STATUS: COMPLETED - Small, moderately severe fixed defect c/w apical infarct. No evidence of reversibility to indicate stress-induced ischemia. # Moderate global hypokinesis with calculated LVEF of 34%. #. Dilated left ventricle. sp NM stress test 05/11/24 /ankit Carter MD. Staff Physcian. Signed: 05/11/2024 16:06 06/19/2024 ADDENDUM STATUS: COMPLETED FIT Negative 06/15/24 /ankit Carter MD. Staff Physcian. Signed: 06/19/2024 11:52 06/19/2024 ADDENDUM STATUS: COMPLETED - Received [employer] Departmant from [place] workforce development program director. Recommend vet to be evaluated for DOT physical by DOT physical providers. vet has complicated medical history. [facility] Alerting SAMREEN Mantilla to advise vet. /ankit Carter MD. Staff Physcian. Signed: 06/19/2024 11:58 Receipt Acknowledged By: 06/21/2024 11:57 /reed/ RADHA GARCIA RN REGISTERED NURSE 06/21/2024 ADDENDUM STATUS: COMPLETED Patient Contacted, Identity verified by full name and Date of . Patient informed per Dr. Carter, please defer to DOT. Vet states that request from State is in response to letter sent by [place] [facility] to [place] workforce development program director. Vet believes that [facility]. Vet further states that he does not know which Service sent letter, possibilities: Primary Care, Endocrinology, or Cardiology. RNCM explained per PCP that Vet should submit to [facility] Physician. RNCM explained to Vet that he is unable to locate copy of letter at this time. In addition, RNCM explained to Vet that his letter was addressed to the [facility] at [address] [phone]. RNCM gave Vet the correct address for [facility]. Further, RNCM explained that his letter only contained page 1 of for: medical report for conditions that may impair driving safely, and that at the bottom of the form, Section II question 3.d is followed by (continued on back) . RNCM explained that Vet needed to send the completed form. Patient verbalized good understanding. /reed/ RADHA GARCIA RN REGISTERED NURSE Signed: 06/21/2024 12:07 08/10/2024 ADDENDUM STATUS: COMPLETED As explained before, please inform vet that I do not do DOT physicals for diabetics. Please contact authorized Physicians as per DOT to fill his DOT physical form. Vet can request his records from [facility]. Alerting SAMREEN Mantilla. /reed/ Pily Carter MD. Staff Physcian. Signed: 08/10/2024 17:27 08/14/2024 ADDENDUM STATUS: COMPLETED Received form from [place] Office of workforce development program director, Engineering Aid safety Department. To complete medical report for conditions that may impair Driving safely. Vet has cardiology and endocrinology appointment on 09/05/24 and 10/06/24. Will alert them to provide their assessment regarding Engineering Aid safely. Will evaluate vet on 10/12/24 appointment with me. alerting SAMREEN Mantilla to inform vet. alerting Chayo Case PA-C and THEODORE Romero to above. /es/ Pily Carter MD. Staff Physan. Signed: 08/14/2024 10:59 Receipt Acknowledged By: * AWAITING SIGNATURE * RADHA FLOYD * AWAITING SIGNATURE * CHAYO CASE * AWAITING SIGNATURE * RADHA NGUYEN SUNITA N [facility] Apr 18, 2024 11:11 AM NURSING NOTE: LOCAL TITLE: V15 PACT FACE TO FACE NOTE [facility] STANDARD TITLE: NURSING NOTE DATE OF NOTE: APR 18, 2024@11:11 ENTRY DATE: APR 18, 2024@11:11:10 AUTHOR: MARTIN BENITES EXP COSIGNER: URGENCY: STATUS: COMPLETED Provider Visit: Patient Identifiers : Full Name Date of Reason for visit: Established Follow-Up Mode of Arrival: Ambulatory Allergy Review: CIPROFLOXACIN, LISINOPRIL Allergy list reviewed and remains current. Recent Vital Signs: Temperature: 97.9 F [36.6 C] (04/18/2024 11:02) Pulse: 89 (04/18/2024 11:02) Respiration: 18 (04/18/2024 11:02) B/P: 129/79 (04/18/2024 11:02) Pain: 0 (04/18/2024 11:02) Wt: 191.4 lb [86.82 kg] (04/18/2024 11:02) Ht: 70 in [177.8 cm] (04/18/2024 11:02) BMI: 27.5 POX: 96% (04/18/2024 11:02) Blood sugar glucometer readin PERSONAL HEALTH INVENTORY Notes: No data available for PHI note titles PERSONAL HEALTH INVENTORY - MAP: 10/15/2022 Personal Health Plan [place], Aspiration, Purpose (MAP) Traveling 11/09/2020 Personal Health Plan [place], Aspiration, Purpose (MAP) Traveling makes vet happy. What matters most to you in your life right now? --- 's Response: Family WHOLE HEALTH SHARED GOALS: PERSONAL HEALTH PLAN - SHARED GOALS: No data available for: Php Shared Goals SHARED GOALS == none Would you like to discuss any personal problem, family problem, alcohol use, drug use, or a mental or emotional illness? No [facility] ([facility]), please select appointment type: Face to face: Yes- Done Contact provided Primary Care phone number and encouraged to call if any questions or concerns. Review that after hours nurse line [phone] and emergency room are available 22/12 for patient use. Contact verbalized good understanding. Tobacco Use Screening - U,L,N,S,PS,M,DE,PH,P: The patient has never smoked cigarettes. The patient has never used other types of tobacco. Depression Screening - V: Perform PHQ-2 A PHQ-2 screen was performed. The score was 0 which is a negative screen for depression. Over the past two weeks, how often have you been bothered by the following problems? 1. Little interest or pleasure in doing things Not at all 2. Feeling down, depressed, or hopeless Not at all Frail/Elderly Screen: ADL Screen - Han Index of [place] in Activities of Daily Living Bathing: (3 Points) Receives no assistance (gets in and out of tub by self, if tub is usual means of bathing) Dressing: (3 Points) Gets clothes and gets completely dressed without assistance. Toileting: (3 Points) Goes to toilet room , cleans self, and arranges clothes without assistance (may use object for support such as cane, walker, or wheelchair, and may manage own night bedpan or commode, emptying same next morning) Transferring: (3 Points) Moves in and out of bed and in and out of chair without assistance (may be using object for support, such as cane or walker) Continence: (3 Points) Controls urination and bowel movement completely by self Feeding: (3 Points) Feeds self without assistance Total Score: 18 Points 18 = High (patient independent) 6 = Low (patient very dependent) IADL Screen - Essence Instrumental Activities of Daily Living Scale Ability to use telephone: (1 point) Operates Telephone on own initiative; looks up and dials numbers. Shopping: (1 point) Takes care of all shopping needs independently. Food preparation: (1 point) Plans, prepares, and serves adequate meals independently. Housekeeping: (1 point) Maintains house alone with occasional assistance (heavy work). Laundry: (1 point) Does personal laundry completely. Mode of transportation: (1 point) Travels independently on public transportation or drives own car. Responsibility for own medications: (1 point) Is responsible for taking medications in correct dosages at correct times. Ability to handle finances: (1 point) Manages financial matters independently (budgets, writes checks, pays rent and bills, goes to bank); collects and keeps track of income. Total score: 8 points 8 = High function, independent 0 = Low function, dependent Falls Screen: One fall with no injury within the last 12 months. Incontinence Screen: No incontinence. /reed/ MARTIN BENITES LPN LICENSED PRACTICAL NURSE Signed: 04/18/2024 11:15 MARTIN BENITES [facility]
--- OUTSIDE RECORDS SUMMARY | 2024-09-23 11:31 | XMS_ITS | Encounter Summary ---
Author Name [facility] [place] Organization [facility] [place] Address [address] [place] [address] Care Team Providers Care Traffic Engineering Technician Name Role Phone RAUL, DEVIN Primary Care [...] PART A Jun 01, 2012 PART A [id number] PILOMARYSEMAKENNA,SENA VID PATIENT MEDICARE (WNR) MEDICARE (M) PART B Jun 01, 2012 PART B [id number] PILOMARYSEEN,DA VID PATIENT MEDICARE (WNR) MEDICARE (M) PART A Jun 01, 2012 PART A [id number] [phone] PILOMARYSEEN,DA VID PATIENT MEDICARE (WNR) MEDICARE (M) PART B Jun 01, 2012 PART B [id number] [phone] GOCKEN,DA VID PATIENT MEDICARE (WNR) MEDICARE (M) PART A Jun 01, 1999 PART A [id number] SENA FUENTES PATIENT Selected Encounter This section includes the information on record at [place] for the Encounter. Date/Time Encounter Type Encounter Description Reason Provider Source Feb 08, 2024 07:25 AM EMERGENCY DEPT VISIT MOD MDM EMERGENCY DEPT ICD-10-CM I95.89 Other hypotension OSMANY MASSEY [facility] Encounter Template Text not used by [place] Assessments - Encounter Diagnoses This section includes the primary and secondary diagnoses documented for the Encounter. Date/Time Primary/Secondary Diagnosis Diagnosis Name Provider Source Feb 08, 2024 12:36 PM PRIMARY Other hypotension OSMANY MASSEY [facility] Feb 08, 2024 12:36 PM SECONDARY Chronic kidney disease, unspecified OSMANY MASSEY [facility] Plan of Treatment: Future Appointments (+ 6 months) and Future Tests (+/- 45 days) The Plan of Treatment section includes [facility] care activities for the [facility] [place] [facility] This section includes future appointments and future orders which are active, pending or scheduled. Future Appointments This section includes appointments that were scheduled to occur 6 months from the date of the Encounter, up to a maximum of 20 appointments. The data comes from all [place] treatment facilities. Appointment Date/Time Appointment Type Appointme nt Facility Name Apr 01, 2024 01:30 PM AMBULATORY - NONE [facility] Apr 04, 2024 11:30 AM AMBULATORY - SURGERY [facility] Apr 06, 2024 11:00 AM AMBULATORY - MEDICINE [facility] Apr 06, 2024 01:00 PM AMBULATORY - MEDICINE [facility] Apr 18, 2024 11:00 AM AMBULATORY - MEDICINE [facility] May 03, 2024 03:00 PM AMBULATORY - SURGERY [facility] May 11, 2024 10:00 AM AMBULATORY - MEDICINE [facility] May 11, 2024 11:00 AM AMBULATORY - MEDICINE [facility] May 19, 2024 01:00 PM AMBULATORY - MEDICINE [facility] Jun 15, 2024 01:00 PM AMBULATORY - MEDICINE [facility] Active, Pending, and Scheduled Orders This section includes a listing of several types of active, pending, and scheduled orders, including clinic medications orders, diagnostic test orders, procedure orders and consult orders; where the start date of the order is 45 days before the date of the Encounter or 45 days after the date of theEncounter. The data comes from all [place] treatment facilities. Test Date/Time Test Type Test Details Facility Name Feb 04, 2024 12:00 AM Laboratory - Chemi stry Order BASIC METABOLIC PANEL GREEN LI/HEP BLD/PLAS PLASMA SP [facility] Feb 04, 2024 12:00 AM Laboratory - Chemi stry Order MAGNESIUM GREEN LI/HEP BLD/PLAS PLASMA SP [facility] Lab Results: +/- 30 days of [...] Unit Interpretation Reference Range Specimen Type Comment Feb 08, 2024 11:13 AM [facility] POTASSIUM PLASMA Specimen Type: PLASMA Comment: No hemolysis noted. Ordering Provider: ALBERTO MASSEY Report Released Date/Time: Feb 08, 2024 10:57 AM Reporting Lab: [facility] [address] [facility] [address] Performing Lab: [facility] [address] [facility] [address] POTASSIUM 4.5 meq/L 3.5-5 Feb 08, 2024 11:12 AM [facility] TROPONIN I PLASMA Specimen Type: PLASM A No comment entered. Ordering Provider: ALBERTO MASSEY Report Released Date/Time: Feb 08, 2024 10:21 AM Reporting Lab: [facility] [address] [facility] [address] Performing Lab: [facility] [address] [facility] [address] TROPONIN I 0.032 ng/mL 0-0.033 Feb 08, 2024 09:40 AM [facility] POTASSIUM PLASMA Specimen Type: PLASM A Comment: K result canceled due to hemolysis. Specimen grossly hemolyzed. Potassium cancelled due to gross hemolysis. Notified Markie Rice RN in ER 02/08/24@10:03 LR. Ordering Provider: ALBERTO MASSEY Report Released Date/Time: Feb 08, 2024 09:15 AM Reporting Lab: [facility] [address] [facility] [address] Performing Lab: [facility] [address] [place] [phone] POTASSIUM canc meq/L HH 3.5-5 Feb 08, 2024 08:28 AM [facility] BRAIN NATRIURETIC PEPTIDE PLASMA Specimen Type : PLASMA No comment entered. Ordering Provider: ALBERTO MASSEY Report Released Date/Time: Feb 08, 2024 07:54 AM Reporting Lab: [facility] [address] [facility] [address] Performing Lab: [facility] [address] [place] [phone] BRAIN NATRIURETIC PEPTIDE 196.3 pg/mL H 0- 100 Feb 08, 2024 08:28 AM [facility] TROPONIN I PLASMA Specimen Type: PLASM A Comment: Aspartate Transaminase result may show positive bias due to hemolysis. K result canceled due to hemolysis. Protein, Total result may show positive bias due to hemolysis. Specimen grossly hemolyzed. Troponin result may show an undetermined bias due to hemolysis. Ordering Provider: ALBERTO MASSEY Report Released Date/Time: Feb 08, 2024 07:54 AM Reporting Lab: [facility] [address] [facility] [address] Performing Lab: [address] [address] TROPONIN I 0.040 ng/mL H 0-0.033 Feb 08, 2024 08:28 AM [facility] TSH (MA-PB) SERUM Specimen Type: SERUM Comment: TSH result may show an undetermined bias due to hemolysis. Ordering Provider: ALBERTO MASSEY Report Released Date/Time: Feb 08, 2024 07:54 AM Reporting Lab: [address] [address] Performing Lab: [address] [address] TSH 3.618 u[IU]/mL 0.47-5 Feb 08, 2024 08:28 AM [facility] COMPREHENSIVE METABOLIC PANEL PLASMA Specimen Type: PLASMA Comment: Aspartate Transaminase result may show positive bias due to hemolysis. K result canceled due to hemolysis. Protein, Total result may show positive bias due to hemolysis. Specimen grossly hemolyzed. Troponin result may show an undetermined bias due to hemolysis. Potassium cancelled due to gross hemolysis. Notified Markie Rice RN in ER 02/08/24@09:10 LR Ordering Provider: ALBERTO MASSEY Report Released Date/Time: Feb 08, 2024 07:54 AM Reporting Lab: [address] [address] Performing Lab: [address] [address] CREATININE 1.28 mg/dL 0.7-1.3 UREA NITROGEN 22.5 mg/dL 9.0-25.0 GLUCOSE 166 mg/dL H 72-99 SODIUM 136 meq/L 136-145 POTASSIUM canc meq/L HH 3.5-5 CHLORIDE 108 meq/L H 98-107 CARBON DIOXIDE 22 meq/L 22-31 CALCIUM 8.8 mg/dL 8.4-10.4 PROTEIN 7.7 g/dL 6-8.6 ALBUMIN 4.1 g/dL 3.4-5 TOTAL BILIRUBIN 0.7 mg/dL 0.2-1.2 ALKALINE PHOSPHATASE 149 U/L 40-150 AST/SGOT 51 U/L H 5-34 ALT/SGPT 22 U/L 8-40 EGFR (CKD-EPI 2020) 58.0 >60 Feb 08, 2024 08:28 AM [facility] CBC BLOOD Specimen Type: BLOOD No comment entered. Ordering Provider: ALBERTO MASSEY Report Released Date/Time: Feb 08, 2024 07:54 AM Reporting Lab: [facility] [address] [place] [address] Performing Lab: [facility] [address] [place] [facility] [place] [address] WBC 5.9 10*3/uL 3.6-11.2 RBC 5.57 10*6/uL 4.10-5.70 HGB 15.5 g/dL 13.1-16.8 HCT 48.9 H 38.2-48.4 MCV 87.8 fL 80.0-100.0 MCH 27.8 pg 27.0-34.0 MCHC 31.7 g/dL L 33.0-36.0 PLT 142 10*3/uL L 150-400 MPV 11.5 fL H 7.5-11.2 RDW 14.6 11.8-15.1 LYMPHOCYTES, AUTO % 21 MONOCYTES, AUTO % 10 NEUTROPHILS, AUTO % 67 EOSINOPHILS, AUTO % 2 BASOPHILS, AUTO % 1 LYMPHOCYTES, ABSOLUTE 1.22 10*3/uL 0.77- 4.50 MONOCYTES, ABSOLUTE 0.61 10*3/uL 0.19-0. 80 NEUTROPHILS, ABSOLUTE 3.95 10*3/uL 2.10- 8.00 EOSINOPHILS, ABSOLUTE 0.10 10*3/uL 0.00- 0.60 BASOPHILS, ABSOLUTE 0.03 10*3/uL 0.00-0. 20 [address]T FRACTION 3.4 1.0-7.0 Vital Signs: All taken on the encounter date This section contains inpatient and outpatient Vital Signs collected on the date of the Encounter. Date/Time Temperature Pulse Blood Pressure Respiratory Rate SP02 Pain Height Weight Body Mass Index Source Feb 08, 2024 11:26 AM 90 151/88 20 99 [facility] Feb 08, 2024 07:25 AM 97.6 89 160/97 18 0 [facility] Social History: Smoking Status (Most current) and Tobacco Use (All prior to encounter date) This section includes the most current, and the historical, smoking and tobacco- related health factors from the [place] facility where the Encounter took place. Current Smoking Status This section includes the most current smoking, or tobacco-related health factor, from the [place] facility where the Encounter took place. Date/Time Current Smoking Status Comment Facil ity October 15, 2023 06:15 AM ORYX ADMIT TOBACCO SCREEN NO [facility] Tobacco Use History This section includes a history of the smoking, or tobacco-related health factors, that were collected on or before the date of the Encounter. The data comes from the [place] facility where the Encounter took place. Date/Time Smoking Status/Tobacco Use Comment F acility October 14, 2022 01:17 PM VA-TOBACCO NEVER USED [facility] Mar 13, 2022 05:25 PM ORYX ADMIT TOBACCO SCREEN NO [facility] Apr 20, 2019 11:02 AM VA-TOBACCO FORMER USER [facility] Apr 20, 2019 11:02 AM CO-TOBACCO QUIT 15 YRS OR MORE [facility] Nov 19, 2015 09:23 AM LIFETIME NON-USER OF TOBACCO [facility] May 02, 2014 08:44 AM LIFETIME NON-USER OF TOBACCO [facility] Jun 15, 2013 04:36 PM LIFETIME NON-USER OF TOBACCO [facility] Jun 17, 2012 09:31 AM LIFETIME NON-USER OF TOBACCO [facility] Advance Directives: All historical and current Section Date Range: From patient's date of to the date document was created. This section includes ALL of a patient's completed or amended [place] Advance and Rescinded Directives. The entries below indicate that a directive exists for the patient, but an actual copy is not included with this document. The data comes from all [facility]. Date Advance Directives Provider Source Nov 19, 2015 ADVANCE DIRECTIVE DISCUSSION JENNIFER LONDONO [facility] Radiology Reports: +/- 30 days of the [...] the Encounter. The data comes from all [place] treatment facilities. Date/Time Radiology Report Provider Source Feb 08, 2024 07:54 AM CHEST PORTABLE: SKY FUENTES [id number] M Exm Date: FEB 08, 2024@07:54 Req Phys: ALBERTO MASSEY Pat Loc: [facility]PT 1ST SHIFT (R Img Loc: [facility] RADIOLOGY SUITE Service: Unknown [facility], [address] [place] [address] (Case 121 COMPLETE) CHEST PORTABLE (RAD Detailed) CPT:29261 Proc Modifiers : Portable Reason for Study: hypotension/ CABG Clinical History: Report Status: Verified Date Reported: FEB 08, 2024 Date Verified: FEB 08, 2024 [facility] E-Sig:/ES/Balaji Martins MD Report: AP portable chest Comparison: Chest radiograph dated 01/20/2023 FINDINGS: Right chest wall cardiac device with leads similar to prior study. Abandoned leads from the left chest wall similar to prior study. Sternal wires and mediastinal clips unchanged. Probable coronary arterial stents, stable. Lungs: Interval development of left midlung nodular focus along the left heart margin. Interval development of left lung base scarring/atelectasis adjacent to the cardiac apex. Mediastinum: No significant abnormality within the limitations of portable technique. Pulmonary vasculature: Pulmonary vasculature is within normal limits. Impression: Interval development of left midlung and basilar atelectasis/scarring favored over pneumonia or malignancy, but chest CT recommended for further evaluation. Report dictated by Royre Naik (radiology interventional physician) Balaji Alcocer, have reviewed the images and report and concur with these findings. Primary Interpreting Staff: Balaji Martins MD, Radiologist ([facility]) Primary Interpreting Resident: ROYER NAIK MD /BALAJI NAVA [facility] Encounter Notes: All associated encounter notes This section contains the clinical notes associated to the Encounter. Date/Time Encounter Note(s) Provider Source Feb 08, 2024 07:54 AM PHYSICIAN EMERGENC Y DEPT NOTE: LOCAL TITLE: EMERGENCY DEPARTMENT ST STANDARD TITLE: PHYSICIAN EMERGENCY DEPT NOTE DATE OF NOTE: FEB 08, 2024@07:54 ENTRY DATE: FEB 08, 2024@07:54:28 AUTHOR: ALBERTO MASSEY EXP COSIGNER: URGENCY: STATUS: COMPLETED TRIAGE CHIEF COMPLAINT: Low blood pressure HPI: Patient is a 78-year-old male with history of hypertension, hyperlipidemia, coronary artery disease, kidney stone, chronic kidney disease, diabetes mellitus, congestive heart failure who presented to the emergency room with history of hypotension for the last few days. Patient stated he undoubtably coronary artery bypass graft at [facility] 3 months ago. Has been tolerating very well. Recently he had been doing has been doing exercises. He noticed his blood pressure was low at home and the lowest was 66/44. Patient denies any nausea or vomiting, no chest pain no short of breath, no fever or chills, no palpitation, no dizziness or lightheadedness or headache. He contacted his thread pulling machine attendant and was told to come to the emergency room for evaluation. Patient stated he felt comfortable over the weekend so he came in today to check his labs. REVIEW OF SYSTEMS: See HPI for further details. All 10 systems reviewed and otherwise negative unless otherwise detailed herein. PAST MEDICAL HISTORY: 1) Kidney stone (SNOMED CT 44299741) 2) Mixed hyperlipidemia (SNOMED CT 275079536) 3) Permanent cardiac pacemaker (SNOMED CT [id number]) 4) Elevated Liver Function Tests 5) Benign essential hypertension 6) Coronary artery disease 7) Hyperlipidemia 8) Elevated PSA 9) Peripheral vascular disease 10) Diabetes mellitus type 1 11) Hypoglycaemia 12) Congestive heart failure 13) Pneumonia 14) Neuropathy 15) Closed extraarticular fracture of distal radius 16) Exposure to potentially hazardous substance 17) Bilateral senile combined form cataracts of eyes 18) Lumbar radiculopathy CURRENT MEDICATIONS: Active Outpatient Medications (including Supplies): Active [...] USE 1 SENSOR UNDER THE SKIN ACTIVE (S) EVERY 10 DAYS TO MONITOR GLUCOSE READINGS [...] 25MG SA TAB TAKE ONE-HALF TABLET ACTIVE (S) BY MOUTH ONCE A DAY FOR MYOCARDIAL [...] MORNING BEFORE A MEAL 16 Total Medications I have reviewed the patient's medication list with the patient and/or his/her care-school nurse. Any medication discrepancies have been resolved. Patient will be provided with an updated list of his/her medication(s). SURGICAL HISTORY: not pertinent FAMILY HISTORY: not pertinent SOCIAL HISTORY: Social History Main Topics: Smoking status:Non-smoker No data available for: Current Tobacco User Alcohol Use: None drinker ____ Illicit Drug Use: None use Sexual Activity: Not related Other Topics of Concern: Definitely outpatient management ALLERGIES: Review of patient's allergies indicates: CIPROFLOXACIN, LISINOPRIL PHYSICAL EXAM: VITAL SIGNS: 160/97 (02/08/2024 07:25)89 (02/08/2024 07:25)95% (12/15/2023 10:29)97.6 F [36.4 C] (02/08/2024 07:25)18 (02/08/2024 07:25) Measurement DT PAIN 02/08/2024 07:25 0 CONSTITUTIONAL: No acute distress, Non-toxic appearance HENT: airway patent, oropharynx clear EYES: Conj pink, sclera clear NECK: Normal range of motion, No tenderness, Supple, No stridor, No LAD. Well- healed scar at the midline of the chest CARDIOVASCULAR: Normal heart rate, Normal rhythm, No murmurs, No rubs, No gallops. PULMONARY/CHEST: CTA bilaterally, thorax stable without tenderness ABDOMEN: Bowel sounds normal, Soft, flat, No tenderness, No bruit, No masses,No pulsatile masses BACK: No tenderness, No CVA tenderness : Deferred at this time RECTAL: Deferred at this time EXTREMITIES: Normal range of motion, Intact distal pulses, No edema, No tenderness NEUROLOGIC: Alert & oriented x 3, Normal motor function, Normal gait, no ataxia, No focal deficits appreciated on cursory screening exam LABS: First troponin was mildly elevated. Elevated creatinine which is a chronic. Potassium was hemolyzed but repeated was normal SODIUM 136 mEq/L 136 - 145 POTASSIUM canc H* mEq/L 3.5 - 5 CHLORIDE 108 H mEq/L 98 - 107 UREA NITROGEN 22.5 mg/dL 9.0 - 25.0 CREATININE 1.28 mg/dL 0.7 - 1.3 CALCIUM 8.8 mg/dL 8.4 - 10.4 PROTEIN 7.7 g/dL 6 - 8.6 ALBUMIN 4.1 g/dL 3.4 - 5 ALKALINE PHOSPHATASE 149 U/L 40 - 150 ALT/SGPT 22 U/L 8 - 40 AST/SGOT 51 H U/L 5 - 34 TOTAL BILIRUBIN 0.7 mg/dL 0.2 - 1.2 CARBON DIOXIDE 22 mEq/L 22 - 31 GLUCOSE 166 H mg/dL 72 - 99 TROPONIN I 0.040 H ng/mL 0 - 0.033 EGFR (CKD-EPI 2020) 58.0 Ref: >=60 RADIOLOGY: No acute infiltrate CHEST PORTABLE Exm Date: FEB 08, 2024@07:54 Req Phys: ALBERTO MASSEY Pat Loc: [facility] 1ST SHIFT (R Img Loc: [facility] SUITE Service: Unknown [facility], [address] [place] [address] (Case 121 COMPLETE) CHEST PORTABLE (RAD Detailed) CPT:40821 Proc Modifiers : Portable Reason for Study: hypotension/ CABG Clinical History: Report Status: Verified Date Reported: FEB 08, 2024 Date Verified: FEB 08, 2024 [facility] E-Sig:/ES/Balaji Martins MD Report: AP portable chest Comparison: Chest radiograph dated 01/20/2023 FINDINGS: Right chest wall cardiac device with leads similar to prior study. Abandoned leads from the left chest wall similar to prior study. Sternal wires and mediastinal clips unchanged. Probable coronary arterial stents, stable. Lungs: Interval development of left midlung nodular focus along the left heart margin. Interval development of left lung base scarring/atelectasis adjacent to the cardiac apex. Mediastinum: No significant abnormality within the limitations of portable technique. Pulmonary vasculature: Pulmonary vasculature is within normal limits. Impression: Interval development of left midlung and basilar atelectasis/scarring favored over pneumonia or malignancy, but chest CT recommended for further evaluation. Report dictated by Royer Naik (radiology interventional physician) I, Balaji Martins, have reviewed the images and report and concur with these findings. Primary Interpreting Staff: Balaji Martins MD, Radiologist ([facility]) ECG IMPRESSION: Paced rhythm/no acute ischemic changes ED COURSE & MEDICAL DECISION MAKING: Patient was seen and examined. His physical exam was unremarkable. His vital signs were stable. He is not orthostatic. His EKG was negative His chest x-ray was negative His troponin initially was mildly elevated but repeated 1 was negative His potassium was hemolyzed twice but repeated was 4.5 \BNP mildly elevated Case discussed with the thread pulling machine attendant on-call/Dr. Wiggins. Patient is cleared to be discharged home. His request. To follow-up with the cardiology clinic as scheduled. His thread pulling machine attendant clinic PA Chayo Daniel also contacted and updated about the condition Nursing notes, medications, vital signs, allergies and pertinent labs & imaging studies reviewed (see chart for details) with lab results reviewed with patient and family/caregivers at bedside and radiology results reviewed with patient and any family/caregivers at bedside. Stable, alert, nontoxic, nonfocal with clinically stable for outpatient management Clinical information obtained from an independent historian. History obtained from or confirmed by: xx___spouse ___parent ___guardian ___family ___friend ___EMS ___other: Discussed with radiology regarding test interpretation: Chest x-ray discussed I performed an independent interpretation of: _xx__EKG ___rhythm strip xx___plain x-ray ___ultrasound ___CT scan ___MRI ___other Patient's care impacted by: ___Diabetes xx___Hypertension ___Cancer _xx__other: Coronary artery disease/recent bypass surgery Patient's care is significantly limited by social determinants of health including, but not limited to: Not related at this point ___inadequate housing ___low income ___alcoholism and drug addiction in family ___problems related to primary support group ___unemployment ___problems with employment ___language barrier ___lack of transportation ___psychiatric disease ___other social determinants of health: External records reviewed: Not available. [place] records reviewed ___Inpatient records ___office records _xx__outpatient records _xx__prior outpatient labs _xx__prior outpatient radiology ___primary care record ___outside ED record ___PMD referral ___outside ER ___urgent care referral ___other: Management of the patient was discussed with: ___Hospitalist _xx__consultant edi consultant over the phone ___behavioral health provider ___primary care provider ___other: The following testing was considered but ultimately was not performed after discussion with the patient/family: Advanced imaging not done I considered prescription management with the following but ultimately did not prescribe: No new prescriptions given ___pain medication ___antiviral ___antibiotic ___other: I considered admission/ observation but decided upon discharge due to: Clinically stable to be managed as outpatient per his request PLANT ATTENDANT SERVICE/TIME: Cardiology at 12:30 MEDICATIONS GIVEN IN ED: [ ] YES [ x ] NO DIFFERENTIAL DIAGNOSES CONSIDERED: Kidney disease/cardiac arrhythmias/anemia DECISION to ADMIT / DISCHARGE TIME: 12:32 discharged home SMOKING CESSATION RECOMMENDATION: Currently he is non-smoker ABNORMAL BLOOD PRESSURE: His blood pressure was controlled DISPOSITION CONDITION:[x ] Improved [ ] Unchanged [ ] Deteriorated CLINICAL IMPRESSION: 1 -hypotension, resolved 2 -troponin leak 3 -chronic kidney disease DISCHARGE INSTRUCTIONS AND PATIENT-DIRECTED FOLLOW-UP RECOMMENDATIONS: DIET: regular ACTIVITY: ad leonides NEW MEDS: Continue home medication. Diet and exercise. Follow-up with the primary care physician and cardiology clinic as scheduled MEDICATION RECONCILIATION: CONTINUE ALL PRESCRIBED MEDICATIONS DIRECTED EXCEPT: No changes to his current medication list FOLLOW-UP WITH PRIMARY PARKING ASSISTANT/SPECIALIST: routine in 1-2 weeks if not improving, sooner if worse RETURN TO EMERGENCY: if any worries or concerns ADDITIONAL SIGNATURE PCP: [x ] YES [ ] NO [ ] not listed Active Outpatient Medications (including Supplies): Active Outpatient [...] USE 1 SENSOR UNDER THE SKIN ACTIVE (S) EVERY 10 DAYS TO MONITOR GLUCOSE READINGS [...] 25MG SA TAB TAKE ONE-HALF TABLET ACTIVE (S) BY MOUTH ONCE A DAY FOR MYOCARDIAL [...] MORNING BEFORE A MEAL 16 Total Medications /reed/ ALBERTO MASSEY Staff Physician Signed: 02/08/2024 12:34 Receipt Acknowledged By: 02/08/2024 13:22 /reed/ Devin Cabrera MD. Staff Jose Elias. ALBERTO MASSEY [facility] Feb 08, 2024 07:31 AM EMERGENCY DEPT TRI AGE NOTE: LOCAL TITLE: EMERGENCY DEPARTMENT TRIAGE NOTE STANDARD TITLE: EMERGENCY DEPT TRIAGE NOTE DATE OF NOTE: FEB 08, 2024@07:31 ENTRY DATE: FEB 08, 2024@07:31:31 AUTHOR: COURTNEY GLASGOW COSIGNER: URGENCY: STATUS: COMPLETED EMERGENCY DEPARTMENT TRIAGE NOTE Has ADDENDA Emergency Department/Urgent Care Center Triage Patient age:78 Sex: MALE On arrival patient was: AMBULATORY Patient phone number: Allergies: CIPROFLOXACIN, LISINOPRIL Subjective/Chief Complaint: Low BP after Excercise Objective: Pt arrives stating that he had a triple bypass 3 months ago. States for the last he was having some low blood pressures after he excercised. States he contacted his cardiology team and they told him to come to ed for further testing. Pt denies pain or any physical complaints at this time. The patient is not a fall risk. BP: P: R: WT: T: HT: Temperature 97.6 F (36.4 C) Pulse 89 Respirations 18 Blood Pressure 160/97 Pain scale recorded: 0 Pulse Oximetry 100 Room Air Sepsis Screening Evaluation Emergency Severity Index (RADHA) level Level 4 Current Medications: Active Outpatient Medications (including Supplies): Active Outpatient [...] USE 1 SENSOR UNDER THE SKIN ACTIVE (S) EVERY 10 DAYS TO MONITOR GLUCOSE READINGS [...] 25MG SA TAB TAKE ONE-HALF TABLET ACTIVE (S) BY MOUTH ONCE A DAY FOR MYOCARDIAL [...] MORNING BEFORE A MEAL 16 Total Medications Current Problems: 1) Kidney stone (SNOMED CT 64267029) 2) Mixed hyperlipidemia (SNOMED CT 352488010) 3) Permanent cardiac pacemaker (SNOMED CT 369830186726541) 4) Elevated Liver Function Tests 5) Benign essential hypertension 6) Coronary artery disease 7) Hyperlipidemia 8) Elevated PSA 9) Peripheral vascular disease 10) Diabetes mellitus type 1 11) Hypoglycaemia 12) Congestive heart failure 13) Pneumonia 14) Neuropathy 15) Closed extraarticular fracture of distal radius 16) Exposure to potentially hazardous substance 17) Bilateral senile combined form cataracts of eyes 18) Lumbar radiculopathy Suicide Screen: [place] Suicide Severity Rating Scale (C-SSRS) screener 1. Over the past month, have you wished you were or wished you could go to sleep and not wake up? No 2. Over the past month, have you had any actual thoughts of killing yourself? No 3. Over the past month, have you been thinking about how you might do this? Response not required due to responses to other questions. 4. Over the past month, have you had these thoughts and had some intention of acting on them? Response not required due to responses to other questions. 5. Over the past month, have you started to work out or worked out the details of how to kill yourself? Response not required due to responses to other questions. 6. If yes, at any time in the past month did you intend to carry out this plan? Response not required due to responses to other questions. 7. In your lifetime, have you ever done anything, started to do anything, or prepared to do anything to end your life (for example, collected pills, obtained a gun, gave away valuables, went to the roof but didn't jump)? No 8. If YES, was this within the past 3 months? Response not required due to responses to other questions. /reed/ COURTNEY GLASGOW RN REGISTERED NURSE Signed: 02/08/2024 07:34 02/08/2024 ADDENDUM STATUS: COMPLETED 1222: IV out. Pt discharged with education and paperwork /reed/ MARKIE RICE REGISTERED NURSE Signed: 02/08/2024 12:48 COURTNEY GLASGOW [facility]
--- OUTSIDE RECORDS SUMMARY | 2024-09-23 11:31 | XMS_ITS | Encounter Summary ---
Author Name [facility] Organization [facility] Address [address] [place] [address] Care Team Providers Care Logistics Engineer Name Role Phone RAUL, DEVIN Primary Care [...] PART A Jun 01, 2012 PART A [id number] [phone] PILOMARYSEMAKENNA,SENA VID PATIENT MEDICARE (WNR) MEDICARE (M) PART B Jun 01, 2012 PART B [id number] PILOMARYSEEN,DA VID PATIENT MEDICARE (WNR) MEDICARE (M) PART A Jun 01, 2012 PART A [id number] PILOMARYSEEN,DA VID PATIENT MEDICARE (WNR) MEDICARE (M) PART B Jun 01, 2012 PART B [id number] GOCKEN,DA VID PATIENT MEDICARE (WNR) MEDICARE (M) PART A Jun 01, 1999 PART A [id number] SENA FUENTES PATIENT Selected Encounter This section includes the information on record at [place] for the Encounter. Date/Time Encounter Type Encounter Description Reason Provider Source Apr 04, 2024 11:30 AM OFFICE O/P EST LOW 20 [facility]OLOGY CLINIC ICD-10-CM N20.0 Calculus of kidney DIEGO FRANK IHDeng Encounter Template Text not used by [place] Assessments - Encounter Diagnoses This section includes the primary and secondary diagnoses documented for the Encounter. Date/Time Primary/Secondary Diagnosis Diagnosis Name Provider Source Apr 04, 2024 11:57 AM PRIMARY Calculus of kidney Leodan SANCHEZ [facility] Apr 04, 2024 11:57 AM SECONDARY Benign prostatic hyperplasia with lower urinary tract symp Leodan SANCHEZ [facility] Plan of Treatment: Future Appointments (+ 6 months) and Future Tests (+/- 45 days) The Plan of Treatment section includes future care activities for the patient from all [place] treatmentfacilities. This section includes future appointments and future orders which are active, pending or scheduled. Future Appointments This section includes appointments that were scheduled to occur 6 months from the date of the Encounter, up to a maximum of 20 appointments. The data comes from all [place] treatment facilities. Appointment Date/Time Appointment Type Appointme nt Facility Name Apr 06, 2024 11:00 AM AMBULATORY - MEDICINE [facility] Apr 06, 2024 01:00 PM AMBULATORY - MEDICINE [facility] Apr 18, 2024 11:00 AM AMBULATORY - MEDICINE [facility] May 03, 2024 03:00 PM AMBULATORY - SURGERY [facility] May 11, 2024 10:00 AM AMBULATORY - MEDICINE [facility] May 11, 2024 11:00 AM AMBULATORY - MEDICINE [facility] May 19, 2024 01:00 PM AMBULATORY - MEDICINE [facility] Jun 15, 2024 01:00 PM AMBULATORY - MEDICINE [facility] Sep 05, 2024 01:00 PM AMBULATORY - MEDICINE [facility] Lab Results: +/- 30 days of the encounter This section includes the Chemistry and Hematology Lab Results on record with [place] for the patient. Radiology Reports and Pathology Reports are provided separately, in subsequent sections. Lab Results This section contains the Chemistry/Hematology Results that were resulted 30 days before or 30 daysafter the date of the Encounter. Date/Time Source Result Type Result - Unit Interpretation Reference Range Specimen Type Comment Apr 18, 2024 11:09 AM [facility] GLUCOSE,BLOOD-poct (STL) BLOOD Specimen Type: BLOOD Comment: Test Performed by: [id number] Meter #: [id number] Ordering Provider: DEVIN CARTER Report Released Date/Time: Apr 18, 2024 04:26 PM Reporting Lab: [address] [address] Performing Lab: [address] [address] GLUCOSE,BLOOD-poct (L) 125 mg/dL H 72-99 Apr 06, 2024 11:49 AM [facility] MICRAL/CREAT PROFILE (STL) URINE Specimen Typ e: URINE No comment entered. Ordering Provider: DEVIN CARTER Report Released Date/Time: Jan 04, 2024 04:29 PM Reporting Lab: [facility] [address] [place] [id number] Performing Lab: [address] [address] URINE ALBUMIN (PB-STL) 206.9 mg/L uACR (STL) 90 mg/g H 0-29 CREATININE URINE/OTHERS 229.9 mg/dL H 63-1 66 Apr 06, 2024 11:43 AM [facility] HGA1C BLOOD Specimen Type: BLOOD No comment entered. Ordering Provider: DEVIN CARTER Report Released Date/Time: Jan 04, 2024 04:29 PM Reporting Lab: [address] [address] Performing Lab: [address] [address] HGA1C 6.7 H 4.0-6.0 Apr 06, 2024 11:43 AM [facility] LIPID PANEL (STL) PLASMA Specimen Type: PLASM A Comment: No hemolysis noted. Ordering Provider: EDVIN CARTER Report Released Date/Time: Jan 04, 2024 04:29 PM Reporting Lab: [place] [id number] [facility] [address] Performing Lab: [address] [address] CHOLESTEROL 145 mg/dL 0-200 TRIGLYCERIDE 101 mg/dL 0-150 CALCULATED LDL 84 mg/dL HDL(New) 41 mg/dL >40 Apr 06, 2024 11:43 AM [facility] COMPREHENSIVE METABOLIC PANEL PLASMA Specimen Type: PLASMA Comment: No hemolysis noted. Ordering Provider: DEVIN CARTER Report Released Date/Time: Jan 04, 2024 04:29 PM Reporting Lab: [address] [address] Performing Lab: [address] [address] CREATININE 1.12 mg/dL 0.7-1.3 UREA NITROGEN 20.0 [...] Height Weight Body Mass Index Source Apr 04, 2024 11:37 AM 97.4 89 116/72 18 96 0 70 192.2 28 [facility] Social History: Smoking Status (Most current) and Tobacco Use (All prior to encounter date) This section includes the most current, and the historical, smoking and tobacco- related health factors from the [place] facility where the Encounter took place. Current Smoking Status This section includes the most current smoking, or tobacco-related health factor, from the [place] facility where the Encounter took place. Date/Time Current Smoking Status Comment Lux pagey October 15, 2023 06:15 AM ORYX ADMIT TOBACCO SCREEN NO [facility] Tobacco Use History This section includes a history of the smoking, or tobacco-related health factors, that were collected on or before the date of the Encounter. The data comes from the [place] facility where the Encounter took place. Date/Time Smoking Status/Tobacco Use Comment F actoya October 14, 2022 01:17 PM VA-TOBACCO NEVER USED [facility] Mar 13, 2022 05:25 PM ORYX ADMIT TOBACCO SCREEN NO [facility] Apr 20, 2019 11:02 AM VA-TOBACCO FORMER USER [facility] Apr 20, 2019 11:02 AM [place]-TOBACCO QUIT 15 YRS OR MORE [facility] Nov 19, 2015 09:23 AM LIFETIME NON-USER OF TOBACCO [facility] May 02, 2014 08:44 AM LIFETIME NON-USER OF TOBACCO [facility] Jun 15, 2013 04:36 PM LIFETIME NON-USER OF TOBACCO [facility] Jun 17, 2012 09:31 AM LIFETIME NON-USER OF TOBACCO [facility] Advance Directives: All historical and current Section Date Range: From patient's date of to the date document was created. This section includes ALL of a patient's completed or amended [place] Advance and Rescinded Directives. The entries below indicate that a directive exists for the patient, but an actual copy is not included with this document. The data comes from all [place] facilities. Date Advance Directives Provider Source Nov 19, 2015 ADVANCE DIRECTIVE DISCUSSION JENNIFER LONDONO [facility] Radiology Reports: +/- 30 days [...] the Encounter. The data comes from all [place] treatment facilities. Date/Time Radiology Report Provider Source Apr 01, 2024 01:[address] ABDOMEN PELVIS W/O CONTRAST-P: SKY FUENTES [id number] [id number] M Exm Date: APR 01, 2024@13:26 Req Phys: ZANE NICHOLS Loc: [facility] 1 (Req'g Loc) Img Loc: [facility] Service: [address] [address] (Case [id number] COMPLETE) CT ABDOMEN AND PELVIS W/O CONTRAS(CT Detailed) CPT:51526 Reason for Study: left kidney stone follow up Clinical History: Responsible Attending: Diego Frank Attending Contact Number: [phone] Resident Contact Number: Allergies listed in CPRS chart: CIPROFLOXACIN, LISINOPRIL Creatinine:CREATININE 1.10 mg/dL 05/05/2023 11:39 /eGFR: STL EGFR (within one year). CREATININE 1.10 mg/dL (05/05/23 11:39) Wt: 195 lb [88.45 kg] (08/28/2023 09:45) History of: Renal failure, chronic or acute renal disease: NO Report Status: Verified Date Reported: APR 01, 2024 Date Verified: APR 01, 2024 Plant Control Operator E-Sig:/ES/Balaji Martins MD Report: CASE #: [id number] DATE:04/01/2024 3:01 PM CLINICAL HISTORY:left kidney stone [...] Primary Interpreting Staff: Balaji Martins MD, Radiologist (Plant Control Operator) /BALAJI CAN [facility] Encounter Notes: All associated encounter notes This section contains the clinical notes associated to the Encounter. Date/Time Encounter Note(s) Provider Source Apr 04, 2024 11:51 AM UROLOGY NOTE: LOCAL TITLE: UROLOGY NOTE STANDARD TITLE: UROLOGY NOTE DATE OF NOTE: APR 04, 2024@11:51 ENTRY DATE: APR 04, 2024@11:51:14 AUTHOR: FRANCISCO SANCHEZ EXP COSIGNER: DIEGO FRANK URGENCY: STATUS: COMPLETED CHIEF COMPLAINT, HPI, EXAM & DATA CC: stones, LUTS HPI: 78 yo M with hx of #stones - Has had episodes of stones in the past. Treated with ESWL - RBUS 05/18/2023 showing a left 1cm non obstructing kidney stone (mid pole). - He is asymptomatic from this. Denies flank pain, hematuria, UTIs. - CT 04/2024 with punctate right renal stones up to 3 mm and two left renal stones 3-4 mm -no stone episodes or n/v/flank pain #LUTS last clinic visit had nocturia, frequency, urgency, slow stream, intermittency (IPSS 18-3). started on flomax -since then reports doing well with very minimal LUTS. AUASS now 7. satisfied -CT 80 cc prostate size (PSAD 0.045) ROS/PMH Denies F/C/N/V/CP/SOB Remainder of PMH listed below and reviewed? Yes TARGETED PHYSICAL EXAM: Gen: NAD HEENT: NC/AT Resp: NLB Abd: s/nt/nd, no rebound or guarding Back: No CVAT bilaterally Ext: WWP MSK: MAEW Neuro: non-focal Skin: warm and dry CREATININE:CREATININE 1.28 mg/dL 02/08/2024 08:28 PSA: PROST. SPECIFIC AG.(PB-STL) 3.630 ng/mL 10/15/2022 10:41 IMAGIN04/2024 Large right renal cyst appears simple on this noncontrast examination. Nonobstructing renal calculi on the right measuring 3 x 3 mm, 1 x 2 mm and 1 x 2 mm. Nonobstructing renal calculi on the left measuring 4 x 4 mm and 3 x 4 mm. No ureteral calculi. No bladder calculi. No acute inflammation the kidneys, ureters or bladder. Prostatomegaly. ASSESS MENT AND PLAN ---- The patient is a 78 yo male with an asymptomatic, non obstructing renal stones, on surveillance. possible that RBUS overestimated size of left stone from US or he passed it, but no distinct stone episodes. LUTS improved on flomax. Recommendations: - Tamsulosin 0.4mg - RBUS in 1 year (MORE INFORMATION) --- * LABS----- PSA Trend: PROST. SPECIFIC AG.(PB-STL) 3.630 ng/mL 10/15/2022 10:41 PROST. SPECIFIC AG.(PB-STL) 4.962 H* ng/mL 10/04/2021 13:02 PROST. SPECIFIC AG.(PB-STL) 4.275 H* ng/mL 08/14/2020 10:45 PROST. SPECIFIC AG.(PB-STL) 3.795 ng/mL 12/09/2019 07:44 BMP: SODIUM 136 mEq/L 02/08/2024 08:28 POTASSIUM 4.5 mEq/L 02/08/2024 11:13 CHLORIDE 108 H mEq/L 02/08/2024 08:28 UREA NITROGEN 22.5 mg/dL 02/08/2024 08:28 CREATININE 1.28 mg/dL 02/08/2024 08:28 CALCIUM 8.8 mg/dL 02/08/2024 08:28 CARBON DIOXIDE 22 mEq/L 02/08/2024 08:28 GLUCOSE 166 H mg/dL 02/08/2024 08:28 EGFR (CKD-EPI 2020) 58.0 02/08/2024 08:28 CBC: WBC 5.9 10*3/uL 02/08/2024 08:28 RBC [...] IMMATURE PLT FRACTION 3.4 % 02/08/2024 08:28 UA: URINE COLOR Light-Yellow 05/05/2023 11:41 APPEARANCE [...] 13:06 HYALINE CASTS 1 /LPF 01/20/2023 13:06 PAST MEDICAL, SOCIAL, FAMILY HX AND ROS 1) Kidney stone (SNOMED CT 87874753) 2) Mixed hyperlipidemia (SNOMED CT 717211161) 3) Permanent cardiac pacemaker (SNOMED CT [id number]) 4) Elevated Liver Function Tests 5) Benign essential hypertension 6) Coronary artery disease 7) Hyperlipidemia 8) Elevated PSA 9) Peripheral vascular disease 10) Diabetes mellitus type 1 11) Hypoglycaemia 12) Congestive heart failure 13) Pneumonia 14) Neuropathy 15) Closed extraarticular fracture of distal radius 16) Exposure to potentially hazardous substance 17) Bilateral senile combined form cataracts of eyes 18) Lumbar radiculopathy MEDICATIONS: Active Outpatient Medications (including Supplies): Active [...] MORNING BEFORE A MEAL 16 Total Medications Allergies: CIPROFLOXACIN, LISINOPRIL /reed/ GAIL LICEA RESIDENT PHYSICIAN, UROLOGY Signed: 04/04/2024 12:11 /reed/ DIEGO FRANK MD Staff Physician, Urology Cosigned: 04/05/2024 07:32 FRANCISCO SANCHEZ [facility]
--- OUTSIDE RECORDS SUMMARY | 2024-09-23 11:31 | XMS_ITS ---
Author Name [facility] [place] [facility] [place] [facility] [place] Address [address] [place] [address] Care Team Providers Care Electroneurodiagnostic Technician Name Role Phone RAUL DEVIN Primary Care [...] PART A Jun 01, 2012 PART A [id number] ALFREDO,SENA VID PATIENT MEDICARE (WNR) MEDICARE (M) PART B Jun 01, 2012 PART B [id number] ALFREDO,SENA VID PATIENT MEDICARE (WNR) MEDICARE (M) PART A Jun 01, 2012 PART A [id number] ALFREDO,DA VID PATIENT MEDICARE (WNR) MEDICARE (M) PART B Jun 01, 2012 PART B [id number] ALFREDO,DA VID PATIENT MEDICARE (WNR) MEDICARE (M) PART A Jun 01, 1999 PART A [id number] SENA FUENTES PATIENT Selected Encounter This section includes the information on record at [place] for the Encounter. Date/Time Encounter Type Encounter Description Reason Provider Source Nov 03, 2023 12:00 PM Outpatient Encounter COMMUNITY CARE CONSULT BRITNEY MANCIA Encounter Template Text not used by [place] Plan of Treatment: Future Appointments (+ 6 months) and Future Tests (+/- 45 days) The Plan of Treatment section includes future care activities for the patient from all [place] treatmentfacilities. This section includes future appointments and future orders which are active, pending or scheduled. Future Appointments This section includes appointments that were scheduled to occur 6 months from the date of the Encounter, up to a maximum of 20 appointments. The data comes from all [place] treatment facilities. Appointment Date/Time Appointment Type Appointme nt Facility Name Nov 06, 2023 08:00 AM AMBULATORY - NONE [facility] Nov 19, 2023 01:00 PM AMBULATORY - SURGERY [facility] Nov 30, 2023 11:30 AM AMBULATORY - MEDICINE [facility] Dec 09, 2023 10:00 AM AMBULATORY - MEDICINE [facility] Dec 15, 2023 10:40 AM AMBULATORY - MEDICINE [facility] Dec 24, 2023 09:45 AM AMBULATORY - SURGERY [facility] Jan 21, 2024 01:00 PM AMBULATORY - SURGERY [facility] Feb 08, 2024 07:25 AM AMBULATORY - MEDICINE [facility] Apr 01, 2024 01:30 PM AMBULATORY - NONE [facility] Apr 04, 2024 11:30 AM AMBULATORY - SURGERY [facility] Apr 06, 2024 11:00 AM AMBULATORY - MEDICINE [facility] Apr 06, 2024 01:00 PM AMBULATORY - MEDICINE [facility] Apr 18, 2024 11:00 AM AMBULATORY - MEDICINE [facility] May 03, 2024 03:00 PM AMBULATORY - SURGERY [facility] Active, Pending, and Scheduled Orders This section includes a listing of several types of active, pending, and scheduled orders, including clinic medications orders, diagnostic test orders, procedure orders and consult orders; where the start date of the order is 45 days before the date of the Encounter or 45 days after the date of theEncounter. The data comes from all [place] treatment facilities. Test Date/Time Test Type Test Details Facility Name October 15, 2023 12:00 AM Laboratory - Blood Bank Order ABO/RH - LAB BLOOD [facility] October 15, 2023 06:00 AM Laboratory - Blood Bank Order TYPE & SCREEN - LAB BLOOD [facility] Dec 15, 2023 12:00 AM Laboratory - Chemi stry Order BASIC METABOLIC PANEL GREEN LI/HEP BLD/PLAS PLASMA [facility] Dec 15, 2023 12:00 AM Laboratory - Chemi stry Order MAGNESIUM GREEN LI/HEP BLD/PLAS PLASMA [facility] Lab Results: +/- 30 days of the encounter This section includes the Chemistry and Hematology Lab Results on record with [place] for the patient. Radiology Reports and Pathology Reports are provided separately, in subsequent sections. Lab Results This section contains the Chemistry/Hematology Results that were resulted 30 days before or 30 daysafter the date of the Encounter. Date/Time Source Result Type Result - Unit Interpretation Reference Range Specimen Type Comment Nov 30, 2023 12:37 PM [facility] MAGNESIUM PLASMA Specimen Type: PLASMA Comment: No hemolysis noted. Ordering Provider: DIEGO CASE Report Released Date/Time: Nov 30, 2023 12:04 PM Reporting Lab: [facility] [address] [address] Performing Lab: [place] [id number] [address] MAGNESIUM 1.9 mg/dL 1.6-2.6 Nov 30, 2023 12:37 PM [facility] BASIC METABOLIC PANEL PLASMA Specimen Type: PL ASMA Comment: No hemolysis noted. Ordering Provider: DIEGO CASE Report Released Date/Time: Nov 30, 2023 12:04 PM Reporting Lab: [facility] [address] [address] Performing Lab: [address] [address] CREATININE 1.14 mg/dL 0.7-1.3 UREA NITROGEN 19.1 mg/dL 9.0-25.0 GLUCOSE 158 mg/dL H 72-99 SODIUM 138 meq/L 136-145 POTASSIUM 4.9 meq/L 3.5-5 CHLORIDE 105 meq/L 98-107 CARBON DIOXIDE 24 meq/L 22-31 CALCIUM 9.4 mg/dL 8.4-10.4 EGFR (CKD-EPI 2020) 66.7 >60 October 16, 2023 09:28 PM [facility] GLUCOSE,BLOOD-poct (STL) BLOOD Specimen Type: BLOOD Comment: Test Performed by: [id number] Meter #: [id number] Ordering Provider: SOLOMON DEMARCO Report Released Date/Time: October 16, 2023 11:21 PM Reporting Lab: [address] [address] Performing Lab: [address] [address] GLUCOSE,BLOOD-poct (STL) 97 mg/dL 72-99 October 16, 2023 04:56 PM [facility] GLUCOSE,BLOOD-poct (STL) BLOOD Specimen Type: BLOOD Comment: Test Performed by: [id number] Meter #: [id number] Ordering Provider: SOLOMON DEMARCO Report Released Date/Time: October 16, 2023 05:15 PM Reporting Lab: [address] [address] Performing Lab: [address] [address] GLUCOSE,BLOOD-poct (STL) 175 mg/dL H 72-99 October 16, 2023 11:33 AM [facility] GLUCOSE,BLOOD-poct (STL) BLOOD Specimen Type: BLOOD Comment: Test Performed by: [id number] Meter #: [id number] Ordering Provider: SOLOMON DEMARCO Report Released Date/Time: October 16, 2023 12:22 PM Reporting Lab: [address] [address] Performing Lab: [address] [address] GLUCOSE,BLOOD-poct (STL) 167 mg/dL H 72-99 October 16, 2023 06:59 AM [facility] BASIC METABOLIC PANEL PLASMA Specimen Type: PL ASMA Comment: No hemolysis noted. Ordering Provider: CYNTHIA CABRERA Report Released Date/Time: October 15, 2023 04:22 PM Reporting Lab: [address] [address] Performing Lab: [address] [address] CREATININE 1.09 mg/dL 0.7-1.3 UREA NITROGEN 21.4 mg/dL 9.0-25.0 GLUCOSE 132 mg/dL H 72-99 SODIUM 140 meq/L 136-145 POTASSIUM 4.5 meq/L 3.5-5 CHLORIDE 106 meq/L 98-107 CARBON DIOXIDE 26 meq/L 22-31 CALCIUM 9.5 mg/dL 8.4-10.4 EGFR (CKD-EPI 2020) 70.3 >60 October 16, 2023 06:59 AM [facility] CBC BLOOD Specimen Type: BLOOD No comment entered. Ordering Provider: CYNTHIA CABRERA Report Released Date/Time: October 15, 2023 04:22 PM Reporting Lab: [address] [address] Performing Lab: [address] [address] WBC 4.4 10*3/uL 3.6-11.2 RBC 5.28 10*6/uL [...] 2.7 1.0-7.0 October 16, 2023 06:30 AM [facility] GLUCOSE,BLOOD-poct (STL) BLOOD Specimen Type: BLOOD Comment: Test Performed by: [id number] Meter #: [id number] Ordering Provider: SOLOMON DEMARCO Report Released Date/Time: October 16, 2023 07:53 AM Reporting Lab: [address] [address] Performing Lab: [address] [address] GLUCOSE,BLOOD-poct (STL) 120 mg/dL H -October 15, 2023 08:59 PM [facility] GLUCOSE,BLOOD-poct (STL) BLOOD Specimen Type: BLOOD Comment: Test Performed by: [id number] Meter #: [id number] Ordering Provider: SOLOMON DEMARCO Report Released Date/Time: October 15, 2023 10:00 PM Reporting Lab: [address] [address] Performing Lab: [address] [address] GLUCOSE,BLOOD-poct (STL) 155 mg/dL H -October 15, 2023 04:22 PM [facility] GLUCOSE,BLOOD-poct (STL) BLOOD Specimen Type: BLOOD Comment: Test Performed by: [id number] Meter #: [id number] Ordering Provider: SOLOMON DEMARCO Report Released Date/Time: October 15, 2023 04:38 PM Reporting Lab: [facility] [address] [place] [address] Performing Lab: [address] [address] GLUCOSE,BLOOD-poct (STL) 89 mg/dL 72-October 15, 2023 12:01 PM [facility] GLUCOSE,BLOOD-poct (STL) BLOOD Specimen Type: BLOOD Comment: Test Performed by: [id number] Meter #: [id number] Ordering Provider: GRETCHEN FREIRE Report Released Date/Time: October 15, 2023 12:12 PM Reporting Lab: [address] [address] Performing Lab: [address] [address] GLUCOSE,BLOOD-poct (STL) 144 mg/dL H 72-October 15, 2023 06:25 AM [facility] COVID-19 SCREENING PANEL (STL-PB) NASOPHARYNX Speci men [...] October 08, 2023 02:49 PM Reporting Lab: [address] [address] Performing Lab: [address] [address] COVID-19 (STL-PB) Not Detected Not Detec ajit October 15, 2023 06:20 AM [facility] GLUCOSE,BLOOD-poct (STL) BLOOD Specimen Type: BLOOD Comment: Test Performed by: [id number] Meter #: [id number] Ordering Provider: GRETCHEN FREIRE Report Released Date/Time: October 15, 2023 10:13 AM Reporting Lab: [facility] [address] [address] Performing Lab: [address] [address] GLUCOSE,BLOOD-poct (STL) 130 mg/dL H 72-99 October 15, 2023 06:20 AM [facility] PT/INR NEW (L-MA) PLASMA Specimen Type: PLAS MA No comment entered. Ordering Provider: GRETCEHN FREIRE Report Released Date/Time: October 08, 2023 02:49 PM Reporting Lab: [address] [address] Performing Lab: [address] [address] PROTIME 10.9 s 9.4-12.5 INR VALUE 1.0 {INR} October 15, 2023 06:20 AM [facility] BASIC METABOLIC PANEL PLASMA Specimen Type: PL ASMA Comment: No hemolysis noted. Ordering Provider: GRETCHEN FREIRE Report Released Date/Time: October 08, 2023 02:49 PM Reporting Lab: [address] [address] Performing Lab: [address] [address] CREATININE 1.10 mg/dL 0.7-1.3 UREA NITROGEN 25.9 mg/dL H 9.0-25.0 GLUCOSE 141 mg/dL H 72-99 SODIUM 139 meq/L 136-145 POTASSIUM 4.2 meq/L 3.5-5 CHLORIDE 106 meq/L 98-107 CARBON DIOXIDE 28 meq/L 22-31 CALCIUM 9.3 mg/dL 8.4-10.4 EGFR (CKD-EPI 2020) 69.6 >60 October 15, 2023 06:20 AM [facility] CBC BLOOD Specimen Type: BLOOD No comment entered. Ordering Provider: GRETCHEN FREIRE Report Released Date/Time: October 08, 2023 02:49 PM Reporting Lab: [facility] [address] [address] Performing Lab: [facility] [address] [address] WBC 4.8 10*3/uL 3.6-11.2 RBC 5.45 10*6/uL [...] 2.8 1.0-7.0 October 15, 2023 12:00 AM [facility] MRSA SURVL NARES DNA NARES Specimen Type: [...] October 15, 2023 04:06 PM Reporting Lab: [facility] [address] [facility] [address] Performing Lab: [facility] [address] [facility] [address] MRSA SURVL NARES DNA Negative Negative Social History: Smoking Status (Most current) and Tobacco Use (All prior to encounter date) This section includes the most current, and the historical, smoking and tobacco- related health factors from the [place] facility where the Encounter took place. Current Smoking Status This section includes the most current smoking, or tobacco-related health factor, from the [place] facility where the Encounter took place. Date/Time Current Smoking Status Comment Facil ity October 15, 2023 06:15 AM ORYX ADMIT TOBACCO SCREEN NO [facility] Tobacco Use History This section includes a history of the smoking, or tobacco-related health factors, that were collected on or before the date of the Encounter. The data comes from the [place] facility where the Encounter took place. Date/Time Smoking Status/Tobacco Use Comment F acility October 14, 2022 01:17 PM VA-TOBACCO NEVER USED [facility] Mar 13, 2022 05:25 PM ORYX ADMIT TOBACCO SCREEN NO [facility] Apr 20, 2019 11:02 AM VA-TOBACCO FORMER USER [facility] Apr 20, 2019 11:02 AM VA-TOBACCO QUIT 15 YRS OR MORE [facility] Nov 19, 2015 09:23 AM LIFETIME NON-USER OF TOBACCO [facility] May 02, 2014 08:44 AM LIFETIME NON-USER OF TOBACCO [facility] Jun 15, 2013 04:36 PM LIFETIME NON-USER OF TOBACCO [facility] Jun 17, 2012 09:31 AM LIFETIME NON-USER OF TOBACCO [facility] Advance Directives: All historical and current Section Date Range: From patient's date of to the date document was created. This section includes ALL of a patient's completed or amended [place] Advance and Rescinded Directives. The entries below indicate that a directive exists for the patient, but an actual copy is not included with this document. The data comes from all [place] facilities. Date Advance Directives Provider Source Nov 19, 2015 ADVANCE DIRECTIVE DISCUSSION LONDONO,GEORGEL LA M [facility] Encounter Notes: All associated encounter notes This section contains the clinical notes associated to the Encounter. Date/Time Encounter Note(s) Provider Source October 20, 2023 02:30 PM NONVA NOTE: LOCAL TITLE: COMMUNITY CARE-CARE COORDINATION PLAN NOTE [address] STAND[address] TITLE: NONVA NOTE DATE OF NOTE: OCTOBER 20, 2023@14:30 ENTRY DATE: NOV 03, 2023@12:01:35 AUTHOR: BRITNEY MANCIA EXP COSIGNER: URGENCY: STATUS: COMPLETED COMMUNITY CARE-CARE COORDINATION PLAN NOTE [address] Has ADDENDA Community Care Consult: Cardiac Surgery Consult No: [id number] HS Referral #: [id number] Community Provider or Hospital Information Community Hospital Name Hospital: [facility] Address: [address] City: [place] State: [place] Zip Code: [address] Chief Complaint: Atherosclerotic Heart Disease of [place] Coronary Artery with other Forms of Angina Pectoris Malo was admitted Date of Admission: September Admission Diagnosis: Coronary Heart Disease Xaqecbhf-Zydtdzang-Puclcytt MD: Type of Bed: Critical Care Level of Care Coordination Complex/Chronic Care Coordination was determined from: Chart Review, Phone call to /Family/Caregiver Facility Community Care Office Contact Care Coordination Point of Contact: Britney Mancia RN Services: Moderate Care Coordination Services Case Management, if appropriate Direct communications with interdisciplinary team Plan: Urgent CABG Transferred from [facility] to [facility] /reed/ BRITNEY MANCIA MSN RN REGISTERED NURSE Signed: 11/03/2023 12:07 11/03/2023 ADDENDUM STATUS: COMPLETED Care Coordination Follow Up Level of Care Coordination Complex/Chronic Care Coordination was determined from: Chart Review, Phone call to Malo/Family/Caregiver Services: Moderate Care Coordination Services Case Management, if appropriate Direct communications with interdisciplinary team Plan: Patient discharged from [facility] 10/30 post 3 vessel cabg. Recovering well at home with follow up scheduled 11/19/[address] Bernstein at [place]. Appointment not listed on appt list, alerted cardiac surg nurse for awareness. Patient denies any coordination needs at this time and is overall happy with his recovery progress thus far. Has no questions about medications or treatment. Will assist as needed. /reed/ BRITNEY MANCIA MSN RN REGISTERED NURSE Signed: 11/03/2023 12:11 11/03/2023 ADDENDUM STATUS: COMPLETED Consult expires 04/17/24 /ankit MANCIA MSN RN REGISTERED NURSE Signed: 11/03/2023 12:14 BRITNEY MANCIA [facility]
--- OUTSIDE RECORDS SUMMARY | 2024-09-23 11:31 | XMS_ITS | Encounter Summary ---
Author Name [facility] [place] Organization [facility] [place] Address [address] [place] [address] Care Team Providers Care Tire Design Engineer Name Role Phone RAUL DEVIN Primary Care [...] PART A Jun 01, 2012 PART A [id number] ALFREDO,SENA VID PATIENT MEDICARE (WNR) MEDICARE (M) PART B Jun 01, 2012 PART B [id number] PILOMARYSEMAKENNA,SENA VID PATIENT MEDICARE (WNR) MEDICARE (M) PART B Jun 01, 2012 PART B [id number] ALFREDO,SENA VID PATIENT MEDICARE (WNR) MEDICARE (M) PART A Jun 01, 2012 PART A [id number] [phone] ALFREDO,DA VID PATIENT MEDICARE (WNR) MEDICARE (M) PART A Jun 01, 1999 PART A [id number] SENA SOTO PATIENT Selected Encounter This section includes the information on record at [place] for the Encounter. Date/Time Encounter Type Encounter Description Reason Pro vider Source Dec 02, 2023 01:31 PM Outpatient Encounter GENERAL INTERNAL MEDICINE IHE Encounter Template Text not used by [place] Plan of Treatment: Future Appointments (+ 6 months) and Future Tests (+/- 45 days) The Plan of Treatment section includes future care activities for the patient from all [place] treatmentfacilities. This section includes future appointments and future orders which are active, pending or scheduled. Future Appointments This section includes appointments that were scheduled to occur 6 months from the date of the Encounter, up to a maximum of 20 appointments. The data comes from all [place] treatment facilities. Appointment Date/Time Appointment Type Appointme nt Facility Name Dec 09, 2023 10:00 AM AMBULATORY - MEDICINE [facility] Dec 15, 2023 10:40 AM AMBULATORY - MEDICINE [facility] Dec 24, 2023 09:45 AM AM[facility]ULATORY - SURGERY [facility] Jan 21, 2024 01:00 PM [facility]ATORY - SURGERY [facility] Feb 08, 2024 07:25 AM AMBULATORY - MEDICINE [facility] Apr 01, 2024 01:30 PM AMBULATORY - NONE [facility] Apr 04, 2024 11:30 AM AMBULATORY - SURGERY [facility] Apr 06, 2024 11:00 AM AMBULATORY - MEDICINE [facility] Apr 06, 2024 01:00 PM AMBULATORY - MEDICINE [facility] Apr 18, 2024 11:00 AM AMBULATORY - MEDICINE [facility] May 03, 2024 03:00 PM AMBULATORY - SURGERY [facility] May 11, 2024 10:00 AM AMBULATORY - MEDICINE [facility] May 11, 2024 11:00 AM AMBULATORY - MEDICINE [facility] May 19, 2024 01:00 PM AMBULATORY - MEDICINE [facility] Active, Pending, and Scheduled Orders This section includes a listing of several types of active, pending, and scheduled orders, including clinic medications orders, diagnostic test orders, procedure orders and consult orders; where the start date of the order is 45 days before the date of the Encounter or 45 days after the date of theEncounter. The data comes from all [place] treatment facilities. Test Date/Time Test Type Test Details Facility Name Dec 15, 2023 12:00 AM Laboratory - Chemi stry Order BASIC METABOLIC PANEL GREEN LI/HEP BLD/PLAS PLASMA SP [facility] Dec 15, 2023 12:00 AM Laboratory - Chemi stry Order MAGNESIUM GREEN LI/HEP BLD/PLAS PLASMA SP [facility] Lab Results: +/- 30 days of the encounter This section includes the Chemistry and Hematology Lab Results on record with [place] for the patient. Radiology Reports and Pathology Reports are provided separately, in subsequent sections. Lab Results This section contains the Chemistry/Hematology Results that were resulted 30 days before or 30 daysafter the date of the Encounter. 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 Uric ACID: 2.78 H Reference range<2.00 Ordering Provider: BUBBA SIMS Report Released Date/Time: Dec 15, 2023 11:05 AM Reporting Lab: [facility] [address] [facility] [address] Performing Lab: [facility] [address] [facility] VOLUME 2.66 >2.00 OXALATE 45 H <45 CITRIC ACID 242 L >320 SULFATE,U-PB STL 17 <30 CREATININE URINE/OTHERS [phone] POTASSIUM URINE/OTHERS 53 19-135 SODIUM URINE/OTHERS 145 <200 CALCIUM URINE/OTHERS 116 <250.0 PHOSPHOROUS URINE/OTHERS 1224 H <1100 URIC ACID URINE/OTHERS 513 <700 MAGNESIUM URINE/OTHER 123 >60.0 .INTERP comment +BRUSHITE 0.10 <2.00 PH(SO) 5.1 L 5.5-7.0 +CALCIUM OXALATE 0.81 <2.00 +SODIUM-URATE 0.34 <2.00 Dec 09, 2023 10:53 AM [facility] PROTEIN.URINE(STL) URINE Specimen Type: URINE No comment entered. Ordering Provider: BUBBA SIMS Report Released Date/Time: Dec 02, 2023 03:33 PM Reporting Lab: [address] [address] Performing Lab: [address] [address] PROTEIN URINE 18.8 mg/dL Dec 09, 2023 10:53 AM [facility] MICRAL/CREAT PROFILE (STL) URINE Specimen Typ e: URINE No comment entered. Ordering Provider: BUBBA SIMS Report Released Date/Time: Dec 02, 2023 03:33 PM Reporting Lab: [address] [address] Performing Lab: [address] [address] URINE ALBUMIN (PB-STL) 58.8 mg/L uACR (STL) 44 mg/g H 0-29 CREATININE URINE/OTHERS 133.2 mg/dL 63-1 66 Dec 09, 2023 10:53 AM [facility] CBC BLOOD Specimen Type: BLOOD No comment entered. Ordering Provider: BUBBA SIMS Report Released Date/Time: Dec 02, 2023 03:33 PM Reporting Lab: [address] [address] Performing Lab: [address] [address] WBC 6.5 10*3/uL 3.6-11.2 RBC 4.60 10*6/uL [...] 0.00-0. 20 Nov 30, 2023 12:37 PM [facility] MAGNESIUM PLASMA Specimen Type: PLASM A Comment: No hemolysis noted. Ordering Provider: DIEGO CASE Report Released Date/Time: Nov 30, 2023 12:04 PM Reporting Lab: [address] [address] Performing Lab: [address] [address] MAGNESIUM 1.9 mg/dL 1.6-2.6 Nov 30, 2023 12:37 PM [facility] BASIC METABOLIC PANEL PLASMA Specimen Type: PL ASMA Comment: No hemolysis noted. Ordering Provider: DIEGO CASE Report Released Date/Time: Nov 30, 2023 12:04 PM Reporting Lab: [address] [address] Performing Lab: [address] [address] CREATININE 1.14 mg/dL 0.7-1.3 UREA NITROGEN 19.1 mg/dL 9.0-25.0 GLUCOSE 158 mg/dL H 72-99 SODIUM 138 meq/L 136-145 POTASSIUM 4.9 meq/L 3.5-5 CHLORIDE 105 meq/L 98-107 CARBON DIOXIDE 24 meq/L 22-31 CALCIUM 9.4 mg/dL 8.4-10.4 EGFR (CKD-EPI 2020) 66.7 >60 Social History: Smoking Status (Most current) and Tobacco Use (All prior to encounter date) This section includes the most current, and the historical, smoking and tobacco- related health factors from the [place] facility where the Encounter took place. Current Smoking Status This section includes the most current smoking, or tobacco-related health factor, from the [place] facility where the Encounter took place. Date/Time Current Smoking Status Comment Facil ity October 15, 2023 06:15 AM [facility]YX ADMIT TOBACCO SCREEN NO [facility] Tobacco Use History This section includes a history of the smoking, or tobacco-related health factors, that were collected on or before the date of the Encounter. The data comes from the [place] facility where the Encounter took place. Date/Time Smoking Status/Tobacco Use Comment F actoya October 14, 2022 01:17 PM VA-TOBACCO NEVER USED [facility] Mar 13, 2022 05:25 PM ORYX ADMIT TOBACCO SCREEN NO [facility] Apr 20, 2019 11:02 AM VA-TOBACCO FORMER USER [facility] Apr 20, 2019 11:02 AM [place]-TOBACCO QUIT 15 YRS OR MORE [facility] Nov 19, 2015 09:23 AM LIFETIME NON-USER OF TOBACCO [facility] May 02, 2014 08:44 AM LIFETIME NON-USER OF TOBACCO [facility] Jun 15, 2013 04:36 PM LIFETIME NON-USER OF TOBACCO [facility] Jun 17, 2012 09:31 AM LIFETIME NON-USER OF TOBACCO [facility] Advance Directives: All historical and current Section Date Range: From patient's date of to the date document was created. This section includes ALL of a patient's completed or amended [place] Advance and Rescinded Directives. The entries below indicate that a directive exists for the patient, but an actual copy is not included with this document. The data comes from all [place] facilities. Date Advance Directives Provider Source Nov 19, 2015 ADVANCE DIRECTIVE DISCUSSION JENNIFER LONDONO [facility] Encounter Notes: All associated encounter notes This section contains the clinical notes associated to the Encounter. Date/Time Encounter Note(s) Provider Source October 17, 2023 01:31 PM NONVA NOTE: LOCAL TITLE: [facility] PRESENTING CARE COORD PLAN STANDARD TITLE: NONVA NOTE DATE OF NOTE: OCTOBER 17, 2023@13:31 ENTRY DATE: DEC 02, 2023@13:32:10 AUTHOR: DAVID SAUNDERS COSIGNER: URGENCY: STATUS: COMPLETED Emergency Notification Intake Date Presenting to the Facility: September Method of Contact: Notified from 1Lay worklist Notification ID: [id number] [facility] Referral #: Closed - Submit for [facility] Hospital Name: Hospital: [facility] Address: [address] [facility] City: [place] State: [place] Zip Code: [address] [facility] Facility Point of Contact: Name: Destiny Galvan Chief complaint: i25.10 Primary Diagnosis: Disposition Discharged Date of discharge: Oct Discharge to home Presenting Problem/History of Present Illness/Hospital Course: Mr. 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 He was seen by Dr. Bernstein at the [facility] and felt high risk to be done at [place]; therefore, transferred here for CABG. Mr. Soto reports that on 09/16 he was running and felt SOB after about 1 mile then started walking when he made it about a 100 yards before he suddenly passed out. He woke up feeling fine and he walked the 1 mile back home. After that a remote device check showed that he had been appropriately shocked for VF arrest, which he didn't realize at the time. He underwent outpatient work-up initially and presented to [place] on 10/14 for LHC. He denies CP and only experiences SOB with exercise. Mr Soto was taken to the operating room on 10/20 for 3V CABG (ABBOTT to LAD< RA, EVAN, SVG to PDA) by Dr. Maki. The patient was taken to the intensive care unit postoperatively in stable condition. When hemodynamically stable, he was weaned from ventilatory and inotropic support. The patient was transferred to the stepdown unit in stable condition on 10/23/2023. His postoperative course was notable for ileus that resolved with time and increased bowel regimen. Chest tubes were discontinued without difficulty. Endocrine was consulted for assistance in glycemic control given his type 1 diabetes. He was aggressively diuresed. The patient progressed as expected. Aggressive physical therapy and pulmonary toilet were initiated, diet was advanced as tolerated, and wounds remained clean, dry and intact. Today, he is stable and ready to be discharged home. He will go on lasix 40mg PO daily until his follow up at the [place] on 11/18 @ 1pm Records r/t this episode of care may be found in JLV; also sent to [facility] for scanning. Records shared securely with PACT team via handoff e-mail /reed/ DAVID SAUNDERS ADVANCED TWISTER FRAME TENDER Signed: 12/02/2023 13:42 Receipt Acknowledged By: 12/04/2023 10:38 /es/ Devin Cabrera MD. Staff Physcian. 12/08/2023 16:33 /es/ RADHA GARCIA RN REGISTERED NURSE [facility]ID SAUNDERSCOX [facility]
--- OUTSIDE RECORDS SUMMARY | 2024-09-23 11:31 | XMS_ITS | Encounter Summary ---
Author Name [facility] [place] Organization [facility] [place] Address [address] [place] [address] Care Team Providers Care Scrap Separator Name Role Phone RAUL DEVIN Primary Care [...] PART A Jun 01, 2012 PART A [id number] ALFREDO,SENA VID PATIENT MEDICARE (WNR) MEDICARE (M) PART B Jun 01, 2012 PART B [id number] PF90 ALFREDO,SENA VID PATIENT MEDICARE (WNR) MEDICARE (M) PART A Jun 01, 2012 PART A [id number] PF90 ALFREDO,DA VID PATIENT MEDICARE (WNR) MEDICARE (M) PART B Jun 01, 2012 PART B [id number] PF90 [phone] ALFREDO,DA VID PATIENT MEDICARE (WNR) MEDICARE (M) PART A Jun 01, 1999 PART A [id number] [id number] SENA FUENTES PATIENT Selected Encounter This section includes the information on record at [place] for the Encounter. Date/Time Encounter Type Encounter Description Reason Pro vider Source Feb 08, 2024 07:54 AM Outpatient Encounter EMERGENCY DEPT IHE Encounter Template Text not used by [place] Plan of Treatment: Future Appointments (+ 6 months) and Future Tests (+/- 45 days) The Plan of Treatment section includes future care activities for the patient [facility] [place] [facility] This section includes future appointments and future orders which are active, pending or scheduled. Future Appointments This section includes appointments that were scheduled to occur 6 months from the date of the Encounter, up to a maximum of 20 appointments. The data comes from all [facility]. Appointment Date/Time Appointment Type Appointme nt Facility Name Apr 01, 2024 01:30 PM AMBULATORY - NONE [facility] Apr 04, 2024 11:30 AM AMBULATORY - SURGERY [facility] Apr 06, 2024 11:00 AM AMBULATORY - MEDICINE [facility] Apr 06, 2024 01:00 PM AMBULATORY - MEDICINE [facility] Apr 18, 2024 11:00 AM AMBULATORY - MEDICINE [facility] May 03, 2024 03:00 PM AMBULATORY - SURGERY [facility] May 11, 2024 10:00 AM AMBULATORY - MEDICINE [facility] May 11, 2024 11:00 AM AMBULATORY - MEDICINE [facility] May 19, 2024 01:00 PM AMBULATORY - MEDICINE [facility] Jun 15, 2024 01:00 PM AMBULATORY - MEDICINE [facility] Active, Pending, and Scheduled Orders This section includes a listing of several types of active, pending, and scheduled orders, including clinic medications orders, diagnostic test orders, procedure orders and consult orders; where the start date of the order is 45 days before the date of the Encounter or 45 days after the date of theEncounter. The data comes from all [facility]. Test Date/Time Test Type Test Details Facility Name Feb 04, 2024 12:00 AM Laboratory - Chemi stry Order BASIC METABOLIC PANEL GREEN LI/HEP BLD/PLAS PLASMA SP [facility] Feb 04, 2024 12:00 AM Laboratory - Chemi stry Order MAGNESIUM GREEN LI/HEP BLD/PLAS PLASMA SP [facility] Lab Results: +/- 30 days [...] Type Comment Feb 08, 2024 11:[address] [facility] POTASSIUM PLASMA Specimen Type: PLASMA Comment: No hemolysis noted. Ordering Provider: ALBERTO MASSEY Report Released Date/Time: Feb 08, 2024 10:57 AM Reporting Lab: [facility] [address] [place] [address] Performing Lab: [facility] [address] [facility] [address] POTASSIUM 4.5 meq/L 3.5-5 Feb 08, 2024 11:[address] [facility] TROPONIN I PLASMA Specimen Type: PLASM A No comment entered. Ordering Provider: ALBERTO MASSEY Report Released Date/Time: Feb 08, 2024 10:21 AM Reporting Lab: [address] [address] Performing Lab: [facility] [address] [place] [address] TROPONIN I 0.032 ng/mL 0-0.033 Feb 08, 2024 09:[address] [facility] POTASSIUM PLASMA Specimen Type: PLASM A Comment: K result canceled due to hemolysis. Specimen grossly hemolyzed. Potassium cancelled due to gross hemolysis. Notified Catrachito Rice RN in ER 02/08/24@10:03 LR. Ordering Provider: ALBERTO MASSEY Report Released Date/Time: Feb 08, 2024 09:15 AM Reporting Lab: [facility] [address] [facility] [address] Performing Lab: [facility] [address] [place] [phone] POTASSIUM canc meq/L HH 3.5-5 Feb 08, 2024 08:[address] [facility] BRAIN NATRIURETIC PEPTIDE PLASMA Specimen Type : PLASMA No comment entered. Ordering Provider: ALBERTO MASSEY Report Released Date/Time: Feb 08, 2024 07:54 AM Reporting Lab: [facility] [address] [place] [phone] Performing Lab: [address] [address] BRAIN NATRIURETIC PEPTIDE 196.3 pg/mL H 0- 100 Feb 08, 2024 08:[address] [facility] TROPONIN I PLASMA Specimen Type: PLASM A Comment: Aspartate Transaminase result may show positive bias due to hemolysis. K result canceled due to hemolysis. Protein, Total result may show positive bias due to hemolysis. Specimen grossly hemolyzed. Troponin result may show an undetermined bias due to hemolysis. Ordering Provider: ALBERTO MASSEY Report Released Date/Time: Feb 08, 2024 07:54 AM Reporting Lab: [address] [address] Performing Lab: [address] [address] TROPONIN I 0.040 ng/mL H 0-0.033 Feb 08, 2024 08:[address] [facility] TSH (MA-PB) SERUM Specimen Type: SERUM Comment: TSH result may show an undetermined bias due to hemolysis. Ordering Provider: ALBERTO MASSEY Report Released Date/Time: Feb 08, 2024 07:54 AM Reporting Lab: [address] [address] Performing Lab: [address] [address] TSH 3.618 u[IU]/mL 0.47-5 Feb 08, 2024 08:[address] [facility] COMPREHENSIVE METABOLIC PANEL PLASMA Specimen Type: PLASMA Comment: Aspartate Transaminase result may show positive bias due to hemolysis. K result canceled due to hemolysis. Protein, Total result may show positive bias due to hemolysis. Specimen grossly hemolyzed. Troponin result may show an undetermined bias due to hemolysis. Potassium cancelled due to gross hemolysis. Notified Catrachito Rice RN in ER 02/08/24@09:10 LR Ordering Provider: ALBERTO MASSEY Report Released Date/Time: Feb 08, 2024 07:54 AM Reporting Lab: [facility] [address] [facility] [address] Performing Lab: [address] [address] CREATININE 1.28 mg/dL 0.7-1.3 UREA NITROGEN 22.5 [...] 58.0 >60 Feb 08, 2024 08:28 AM [facility] CBC BLOOD Specimen Type: BLOOD No comment entered. Ordering Provider: ALBERTO MASSEY Report Released Date/Time: Feb 08, 2024 07:54 AM Reporting Lab: [facility] [address] [facility] [address] Performing Lab: [address] [address] WBC 5.9 10*3/uL 3.6-11.2 RBC 5.57 10*6/uL [...] 2024 11:26 AM 90 151/88 20 99 [facility] DIVISIO N Feb 08, 2024 07:25 AM 97.6 89 160/97 18 0 [facility] Social History: Smoking Status (Most current) and Tobacco Use (All prior to encounter date) This section includes the most current, and the historical, smoking and tobacco- related health factors from the [place] facility where the Encounter took place. Current Smoking Status This section includes the most current smoking, or tobacco-related health factor, from the [place] facility where the Encounter took place. Date/Time Current Smoking Status Comment Lux ity October 15, 2023 06:15 AM ORYX ADMIT TOBACCO SCREEN NO [facility] Tobacco Use History This section includes a history of the smoking, or tobacco-related health factors, that were collected on or before the date of the Encounter. The data comes from the [place] facility where the Encounter took place. Date/Time Smoking Status/Tobacco Use Comment F actoya October 14, 2022 01:17 PM VA-TOBACCO NEVER USED [facility] Mar 13, 2022 05:25 PM ORYX ADMIT TOBACCO SCREEN NO [facility] Apr 20, 2019 11:02 AM VA-TOBACCO FORMER USER [facility] Apr 20, 2019 11:02 AM [place]-TOBACCO QUIT [address] [facility] Nov 19, 2015 09:23 AM LIFETIME NON-USER OF TOBACCO [facility] May 02, 2014 08:44 AM LIFETIME NON-USER OF TOBACCO [facility] Jun 15, 2013 04:36 PM LIFETIME NON-USER OF TOBACCO [facility] Jun 17, 2012 09:31 AM LIFETIME NON-USER OF TOBACCO [facility] Advance Directives: All historical and current Section Date Range: From patient's date of to the date document was created. This section includes ALL of a patient's completed or amended [place] Advance and Rescinded Directives. The entries below indicate that a directive exists for the patient, but an actual copy is not included with this document. The data comes from all [place] facilities. Date Advance Directives Provider Source Nov 19, 2015 ADVANCE DIRECTIVE DISCUSSION JENNIFER LONDONO [facility] Radiology Reports: +/- 30 days [...] the Encounter. The data comes from all [place] treatment facilities. Date/Time Radiology Report Provider Source Feb 08, 2024 07:54 AM CHEST PORTABLE: SKY FUENTES [id number] -[id number] M Exm Date: FEB 08, 2024@07:54 Req Phys: ALBERTO MASSEY Loc: [facility]PT 1ST SHIFT (R Img Loc: [facility]MAIN RADIOLOGY SUITE Service: [facility], [facility] [address] [place] [address] (Case [id number] COMPLETE) CHEST PORTABLE (RAD Detailed) CPT:80831 Proc Modifiers : Portable Reason for Study: hypotension/ CABG Clinical History: Report Status: Verified Date Reported: FEB 08, 2024 Date Verified: FEB 08, 2024 Microstrategy Architect Developer E-Sig:/ES/Mao Martins MD Report: AP portable chest Comparison: [...] further evaluation. Report dictated by Royer Naik (echocardiography radiology technologist) I, Mao Martins, have reviewed the images and report and concur with these findings. Primary Interpreting Staff: Mao Martins MD, Radiologist (Microstrategy Architect Developer) Primary Interpreting Resident: ROYER NAIK MD /MAO NAVA [facility] Encounter Notes: All associated encounter notes This section contains the clinical notes associated to the Encounter. Date/Time Encounter Note(s) Provider Source Feb 08, 2024 11:05 AM CARDIOLOGY DIAGNOS TIC STUDY CONSULT: LOCAL TITLE: EKG CONSULT STL STANDARD TITLE: CARDIOLOGY DIAGNOSTIC STUDY CONSULT DATE OF NOTE: FEB 08, 2024@11:05:48 ENTRY DATE: FEB 08, 2024@11:05:48 AUTHOR: CLINICAL,DEVICE PRO EXP COSIGNER: URGENCY: STATUS: COMPLETED DOCUMENT IN VISTA IMAGING SEE FULL REPORT IN VISTA IMAGING SIGNATURE NOT REQUIRED SEE SIGNATURE IN VISTA IMAGING ([facility] EKG) AUTO-INSTRUMENT DIAGNOSIS Procedure: [id number] 12 Lead ECG Release Status: Released Off-Line Verified Date Verified: Feb 08, 2024@11:05:47 00735.2 Ventricular Rate: 89 BPM 62833.3 Atrial Rate: 89 BPM 18502.4 P-R Interval: 112 ms 37430.5 QRS Duration: 182 ms 97456.6 Q-T Interval: 470 ms 03206 QTC Calculation(Bazett)571 ms 89963.13 Calculated R Bryant: -82 degrees 41480.14 Calculated T Bryant: 132 degrees AV dual-paced rhythm Biventricular pacemaker detected Abnormal ECG When compared with ECG of 15-OCT-2023 06:40, Vent. rate has increased BY 39 BPM Administrative Closure: 02/08/2024 by: CLINICAL,DEVICE PROXY SERVICE CLINICAL,DEVICE PROXY SERVICE [facility]
--- OUTSIDE RECORDS SUMMARY | 2024-09-23 11:31 | XMS_ITS | Encounter Summary ---
Author Name [facility] [place] Address [address] [place] [address] Care Team Providers Care Rn Hospice Name Role Phone RAUL, DEVIN Primary Care [...] PART A Jun 01, 2012 PART A [id number] [phone] PILOMARYSEMAKENNA,SENA VID PATIENT MEDICARE (WNR) MEDICARE (M) PART B Jun 01, 2012 PART B [id number] PILOMARYSEEN,DA VID PATIENT MEDICARE (WNR) MEDICARE (M) PART A Jun 01, 2012 PART A [id number] PILOMARYSEEN,DA VID PATIENT MEDICARE (WNR) MEDICARE (M) PART B Jun 01, 2012 PART B [id number] GOCKEN,DA VID PATIENT MEDICARE (WNR) MEDICARE (M) PART A Jun 01, 1999 PART A [id number] SENA FUENTES PATIENT Selected Encounter This section includes the information on record at [place] for the Encounter. Date/Time Encounter Type Encounter Description Reason Provider Source May 03, 2024 03:00 PM OFFICE O/P EST LOW 20 MIN OPTOMETRY ICD-10-CM E10.9 Type 1 diabetes mellitus without complications JOSE CAROLINA Yanci [facility] Encounter Template Text not used by [place] Assessments - Encounter Diagnoses This section includes the primary and secondary diagnoses documented for the Encounter. Date/Time Primary/Secondary Diagnosis Diagnosis Name Provider Source May 03, 2024 03:47 PM PRIMARY Type 1 diabetes mellitus without complications TIANNA CAROLINA [facility] May 03, 2024 03:47 PM SECONDARY Presbyopia TIANNA CAROLINA [facility] May 03, 2024 03:47 PM SECONDARY Presence of intraocular lens TIANNA CAROLINA [facility] Plan of Treatment: Future Appointments (+ 6 months) and Future Tests (+/- 45 days) The Plan of Treatment section includes future care activities for the [facility] [place] [facility] This section includes future appointments and future orders which are active, pending or scheduled. Future Appointments This section includes appointments that were scheduled to occur 6 months from the date of the Encounter, up to a maximum of 20 appointments. The data comes from all [place] treatment facilities. Appointment Date/Time Appointment Type Appointme nt Facility Name May 11, 2024 10:00 AM AMBULATORY - MEDICINE [facility] May 11, 2024 11:00 AM AMBULATORY - MEDICINE [facility] May 19, 2024 01:00 PM AMBULATORY - MEDICINE [facility] Jun 15, 2024 01:00 PM AMBULATORY - MEDICINE [facility] Sep 05, 2024 01:00 PM AMBULATORY - MEDICINE [facility] October 06, 2024 11:00 AM AMBULATORY - MEDICINE [facility] October 12, 2024 02:00 PM AMBULATORY - MEDICINE [facility] Lab Results: +/- 30 days of the encounter This section includes the Chemistry and Hematology Lab Results on record with [place] for the patient. Radiology Reports and Pathology Reports are provided separately, in subsequent sections. Lab Results This section contains the Chemistry/Hematology Results that were resulted 30 days before or 30 daysafter the date of the Encounter. Date/Time Source Result Type Result - Unit Interpretation Reference Range Specimen Type Comment Apr 18, 2024 11:09 AM [facility] GLUCOSE,BLOOD-poct (STL) BLOOD Specimen Type: BLOOD Comment: Test Performed by: [id number] Meter #: [id number] Ordering Provider: DEVIN CARTER Report Released Date/Time: Apr 18, 2024 04:26 PM Reporting Lab: [address] [address] Performing Lab: [address] [address] GLUCOSE,BLOOD-poct (STL) 125 mg/dL H 72-99 Apr 06, 2024 11:49 AM [facility] MICRAL/CREAT PROFILE (STL) URINE Specimen Typ e: URINE No comment entered. Ordering Provider: DEVIN CARTER Report Released Date/Time: Jan 04, 2024 04:29 PM Reporting Lab: [facility] [address] [facility] [address] Performing Lab: [facility] [address] [place] [phone] URINE ALBUMIN (PB-STL) 206.9 mg/L uACR (STL) 90 mg/g H 0-29 CREATININE URINE/OTHERS 229.9 mg/dL H 63-1 66 Apr 06, 2024 11:43 AM [facility] HGA1C BLOOD Specimen Type: BLOOD No comment entered. Ordering Provider: DEVIN CARTER Report Released Date/Time: Jan 04, 2024 04:29 PM Reporting Lab: [facility] [address] [facility] [address] Performing Lab: [facility] [address] [facility] [address] HGA1C 6.7 H 4.0-6.0 Apr 06, 2024 11:43 AM [facility] LIPID PANEL (STL) PLASMA Specimen Type: PLASM A Comment: No hemolysis noted. Ordering Provider: DEVIN CARTER Report Released Date/Time: Jan 04, 2024 04:29 PM Reporting Lab: [facility] [address] [facility] [address] Performing Lab: [facility] [address] [facility] [phone] CHOLESTEROL 145 mg/dL 0-200 TRIGLYCERIDE 101 mg/dL 0-150 CALCULATED LDL 84 mg/dL HDL(New) 41 mg/dL >40 Apr 06, 2024 11:43 AM [facility] COMPREHENSIVE METABOLIC PANEL PLASMA Specimen Type: PLASMA Comment: No hemolysis noted. Ordering Provider: DEVIN CARTER Report Released Date/Time: Jan 04, 2024 04:29 PM Reporting Lab: [facility] [address] [facility] [address] Performing Lab: [facility] [address] [facility] [address] CREATININE 1.12 mg/dL 0.7-1.3 UREA NITROGEN 20.0 [...] U/L 8-40 EGFR (CKD-EPI 2020) 68.1 >60 Social History: Smoking Status (Most current) and Tobacco Use (All prior to encounter date) This section includes the most current, and the historical, smoking and tobacco- related health factors from the [place] facility where the Encounter took place. Current Smoking Status This section includes the most current smoking, or tobacco-related health factor, from the [place] facility where the Encounter took place. Date/Time Current Smoking Status Comment Facil kaden October 15, 2023 06:15 AM [facility] ADMIT TOBACCO SCREEN NO [facility] Tobacco Use History This section includes a history of the smoking, or tobacco-related health factors, that were collected on or before the date of the Encounter. The data comes from the [place] facility where the Encounter took place. Date/Time Smoking Status/Tobacco Use Comment F acility October 14, 2022 01:17 PM VA-TOBACCO NEVER USED [facility] Mar 13, 2022 05:25 PM [facility]YX ADMIT TOBACCO SCREEN NO [facility] Apr 20, 2019 11:02 AM VA-TOBACCO FORMER USER [facility] Apr 20, 2019 11:02 AM [place]-TO[place]ACCO QUIT 15 YRS OR MORE [facility] Nov 19, 2015 09:23 AM LIFETIME NON-USER OF TOBACCO [facility] May 02, 2014 08:44 AM LIFETIME NON-USER OF TOBACCO [facility] Jun 15, 2013 04:36 PM LIFETIME NON-USER OF TOBACCO [facility] Jun 17, 2012 09:31 AM LIFETIME NON-USER OF TOBACCO [facility] Advance Directives: All historical and current Section Date Range: From patient's date of to the date document was created. This section includes ALL of a patient's completed or amended [place] Advance and Rescinded Directives. The entries below indicate that a directive exists for the patient, but an actual copy is not included with this document. The data comes from all [facility]. Date Advance Directives Provider Source Nov 19, 2015 ADVANCE DIRECTIVE DISCUSSION JENNIFER LONDONO [facility] Radiology Reports: +/- 30 days of the [...] the Encounter. The data comes from all [place] treatment facilities. Date/Time Radiology Report Provider Source May 11, 2024 09:46 AM NM MYOCARDIAL P SP ECT STRESS/REST-P: SKY FUENTES [facility] [id number] M Exm Date: MAY 11, 2024@09:46 Req Phys: DIEGO CASE Loc: [facility] MANPREET DELUCA (Req'g Img Loc: [facility] Service: Unknown [facility] [address] [place] [address] (Case [id number] COMPLETE) NM MYOCARDIAL PERF SPECT STRESS/R(NM Detailed) CPT:03822 Reason for Study: CHEST PAIN (Case 2400 COMPLETE) TC-99M TETROFOSMIN (MYOVIEW) (NM Detailed) CPT:A9502 (Case 2401 COMPLETE) TC-99M TETROFOSMIN (MYOVIEW), PE(NM Detailed) CPT:A9502 (Case 2402 COMPLETE) NON-HEU TC-99M ADD-ON PER STUDY D(NM Detailed) CPT:Q9969 (Case 2558 COMPLETE) REGADENOSON INJECTION (NM Detailed) CPT:J2785 Clinical History: CHEST PAIN Report Status: Verified Date Reported: MAY 11, 2024 Date Verified: MAY 11, 2024 Commercial Producer E-Sig:/ES/NANCY JACKSON M.D. Report: PATIENT NAME: SKY FUENTES CASE #: [id number], [id number], [id number] EXAMINATION: Rest/Lexiscan Stress Gated SPECT Myocardial Imaging HISTORY: 78-year-old male patient presented with chest pain. Past history significant for heart failure with reduced ejection fraction, coronary artery disease status post stents to the RCA in 2013 and proximal and mid LAD in 2020, status post CABG/ 3 vessels ABBOTT to LAD and left radial artery to obtuse marginal and SVG to PDA in 10/21/2023. TECHNIQUE: A dose of 11.1 mCi Tc-99m Myoview was administered IV at rest, and SPECT myocardial imaging was performed in the supine position. Lexiscan administration was performed under physician supervision. Cardiology will report on EKG findings and patient's stress tolerance. A dose of 29.9 mCi Tc-99m Myoview was administered IV at peak stress, and gated SPECT myocardial imaging was performed in the supine position. Non-gated prone stress imaging was also performed. COMPARISON: No prior study was found in patient's chart at the time of dictation. FINDINGS: The image quality is technically excellent with no significant patient motion or unusual soft tissue attenuation. The left ventricle is dilated. The stress SPECT images show intermediate sized area of moderately reduced counts involving the inferior wall as well as distal inferoseptal wall improved in prone images, appears to be worse in rest images. There is a small area of moderately reduced counts involving the apex, predominantly unchanged at rest. The gated images demonstrate moderate global hypokinesis and reduced thickening involving the apex. TID is normal The calculated left ventricular ejection fraction is 34%. Impression: 1. 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 No evidence of reversibility to indicate stress-induced ischemia. 2. Moderate global hypokinesis with calculated LVEF of 34%. 3. Dilated left ventricle. Diagnostic code: 1001 Dictated by Carolyn Sexton MD (Nuclear Medicine resident). I, Nancy Jackson, have reviewed the images and report and concur with these findings. Primary Interpreting Staff: NANCY JACKSON M.D., STAFF PHYSICIAN - DIAGNOSTIC IMAGING (Commercial Producer) Primary Interpreting Resident: CAROLYN SEXTON MD /NANCY Norris [facility] Encounter Notes: All associated encounter notes This section contains the clinical notes associated to the Encounter. Date/Time Encounter Note(s) Provider Source May 03, 2024 03:05 PM OPTOMETRY NOTE: LOCAL TITLE: OPTOMETRY NOTE STANDARD TITLE: OPTOMETRY NOTE DATE OF NOTE: MAY 03, 2024@15:05 ENTRY DATE: MAY 03, 2024@15:05:31 AUTHOR: JHON CAROLINA EXP COSIGNER: URGENCY: STATUS: COMPLETED Last seen: 07/22/23 - ophtho CC: 1. Vision is stable - no complaints 2. Type 1 DM - insulin only Ocular meds: none Ocular ROS: s/p toric PCIOL OD x 02/12/23 *with CME vs VMT (resolved) s/p toric PCIOL OS x 06/16/23 Family OcHX: (-) blindness (-) glaucoma (-) AMD (-) RD Cardiovascular ROS: no change from problem & medication lists [facility] Problem list, medications and allergies reviewed: [facility] Serology for Diabetes GLUCOSE 127 H mg/dL 04/06/2024 11:43 HGA1C 6.7 H % 04/06/2024 11:43 Cardiovascular BP: 129/79 (04/18/2024 11:02) Pulse: 89 (04/18/2024 11:02) Neuro: Orientation: Normal Psych: Mood/Affect: Normal Depression/suicide ideation: NO VISUAL ACUITY Distance Visual Acuity (cc) OD: 20/20 OS: 20/20 Pupils PERRL OU (-)APD Confrontation: FTFC OU Extra-Ocular Muscles Full OU Autorefraction OD: +1.00 -0.75 x142 OS: +1.25 -1.25 x078 Refraction OD: +0.50 -0.75 x153 20/20 OS: +0.25 -0.50 x075 20/20 Add: +2.75 Externals/adnexa: Unremarkable OU SLIT LAMP EXAMINATION OU Lids/Lashes/Lacrimal clean Conjunctiva/Sclera white/quiet Cornea clear Ant Chamber deep and quiet Iris flat, normal (-)NVI Lens PCIOL c tr+ PCO Intraocular Pressures (Goldmann) 1 gtt Fluress OU Date OD OS Time Meds 05/03/24 16 16 1513 none DILATED INTERNAL OU - pt understands side effects associated with dilation 1 gtt 1% tropicamide OU @ 1516 Optic Nerve 0.4 Flat, pink, distinct (-)NVD Vessels 2/3, (-)NVE Post Pole (-)hemorrhages/exudates/C WS Macula flat, clear (-)CSME Periphery flat and intact 360 Vitreous (+)PVD Assessment and Plan 05/03/24 1. Diabetes without retinopathy OU - no CSME/DME OU on clinical exam today - last A1c: 6.7% - Advised patient to keep HgA1c below 7% to reduce the risk of vision loss associated with diabetes - Monitor yearly with DFE 2. Pseudophakia OU - doing well, monitor 3. Refractive error with presbyopia OU - Continue with habitual per pt preference Pt edu on all findings and given the opportunity to have questions answered RTC 1 year, sooner prn /reed/ JHON CAROLINA, OD LOCOMOTIVE PIPE FITTER Signed: 05/03/2024 15:47 JHON CAROLINA [facility]
--- OUTSIDE RECORDS SUMMARY | 2024-09-23 11:31 | XMS_ITS | Encounter Summary ---
Author Name [facility] [place] Address [address] [place] [address] Care Team Providers Care Ship Engines Operating Engineer Name Role Phone DEVIN CARTER Primary Care [...] PART A Jun 01, 2012 PART A [id number] PF90 KARLMAKENNASENA VID PATIENT MEDICARE (WNR) MEDICARE (M) PART B Jun 01, 2012 PART B [id number] [id number] SENA FUENTES VID PATIENT MEDICARE (WNR) MEDICARE (M) PART A Jun 01, 2012 PART A [id number] PF90 SENA FUENTES VID PATIENT MEDICARE (WNR) MEDICARE (M) PART B Jun 01, 2012 PART B [id number] SENA FUENTES PATIENT MEDICARE (WNR) MEDICARE (M) PART A Jun 01, 1999 PART A [id number] PF90 SENA FUENTES PATIENT Selected Encounter This section includes the information on record at [place] for the Encounter. Date/Time Encounter Type Encounter Description Reason Provider Source Jun 15, 2024 08:24 AM NQHP OL DIG ASSMT&MGMT 5-10 CLINICAL PHARMACY ICD-10-CM Z28.39 Other underimmunization status LORNE VALERO IHDeng Encounter Template Text not used by [place] Assessments - Encounter Diagnoses This section includes the primary and secondary diagnoses documented for the Encounter. Date/Time Primary/Secondary Diagnosis Diagnosis Name Provider Source Jun 15, 2024 08:31 AM PRIMARY Other underimmunization status EDSON VALERO [facility] Plan of Treatment: Future Appointments (+ 6 months) and Future Tests (+/- 45 days) The Plan of Treatment section includes future care activities for the patient from all [place] treatmentfacilities. This section includes future appointments and future orders which are active, pending or scheduled. Future Appointments This section includes appointments that were scheduled to occur 6 months from the date of the Encounter, up to a maximum of 20 appointments. The data comes from all [place] treatment facilities. Appointment Date/Time Appointment Type Appointme nt Facility Name Sep 05, 2024 01:00 PM AMBULATORY - MEDICINE [facility] October 06, 2024 11:00 AM AMBULATORY - MEDICINE [facility] October 12, 2024 02:00 PM AMBULATORY - MEDICINE [facility] Dec 06, 2024 10:40 AM AMBULATORY - MEDICINE [facility] Lab Results: +/- 30 days of the encounter This section includes the Chemistry and Hematology Lab Results on record with [place] for the patient. Radiology Reports and Pathology Reports are provided separately, in subsequent sections. Lab Results This section contains the Chemistry/Hematology Results that were resulted 30 days before or 30 daysafter the date of the Encounter. Date/Time Source Result Type Result - Unit Interpretation Reference Range Specimen Type Comment Jun 15, 2024 04:11 PM [facility] OCCULT BLOOD FIT X1 SCREEN FECES Specimen Typ e: FECES No comment entered. Ordering Provider: DEVIN CARTER Report Released Date/Time: Apr 18, 2024 11:49 AM Reporting Lab: [facility] [address] [facility] [address] Performing Lab: [facility] [address] [facility] [address] OCCULT BLOOD (FIT) #1 OF 1 Negative Nega tive Social History: Smoking Status (Most current) and Tobacco Use (All prior to encounter date) This section includes the most current, and the historical, smoking and tobacco- related health factors from the [place] facility where the Encounter took place. Current Smoking Status This section includes the most current smoking, or tobacco-related health factor, from the [place] facility where the Encounter took place. Date/Time Current Smoking Status Comment Facil ity October 15, 2023 06:15 AM [facility] ADMIT TOBACCO SCREEN NO [facility] Tobacco Use History This section includes a history of the smoking, or tobacco-related health factors, that were collected on or before the date of the Encounter. The data comes from the [place] facility where the Encounter took place. Date/Time Smoking Status/Tobacco Use Comment F acility October 14, 2022 01:17 PM VA-TOBACCO NEVER USED [facility] Mar 13, 2022 05:25 PM [facility] ADMIT TOBACCO SCREEN NO [facility] Apr 20, 2019 11:02 AM VA-TOBACCO FORMER USER [facility] Apr 20, 2019 11:02 AM VA-TOBACCO QUIT [address] [facility] [...] this document. The data comes from all [place] facilities. Date Advance Directives Provider Source Nov 19, 2015 ADVANCE DIRECTIVE DISCUSSION JENNIFER LONDONO [facility] Encounter Notes: All associated encounter notes This section contains the clinical notes associated to the Encounter. Date/Time Encounter Note(s) Provider Source Jun 15, 2024 08:24 AM INTERNAL MEDICINE CLINICAL PHARMACIST MEDICATION MGT NOTE: LOCAL TITLE: CLINICAL PHARMACIST NOTE ST STANDARD TITLE: INTERNAL MEDICINE CLINICAL PHARMACIST MEDICATION DATE OF NOTE: JUN 15, 2024@08:24 ENTRY DATE: JUN 15, 2024@08:24:46 AUTHOR: EDSON VALERO COSIGNER: URGENCY: STATUS: COMPLETED CLINICAL PHARMACY CHART REVIEW Reason: Received request from RN to assess indication and agent selection for pneumococcal vaccine for scheduled appointment today I have reviewed pertinent CPRS documentation in the electronic medical record for this patient. The recommendations/findings offered are the result of information from the requesting provider and a chart review only. Objective: PMH: 1) Kidney stone (SNOMED CT 81211172) 2) Mixed hyperlipidemia (SNOMED CT 081478034) 3) Permanent cardiac pacemaker (SNOMED CT [id number]) 4) Elevated Liver Function Tests 5) Benign [...] grafting 20) Impacted cerumen of bilateral ears PNEUMOCOCCAL CONJUGATE PCV 13 06/01/2014 PVT of* <C> PNEUMOCOCCAL POLYSACCHARIDE PPV23 06/01/2012 PVT of* <C> PNEUMOCOCCAL, UNSPECIFIED FORMUL* [facility] Assessment/Plan: Per available records, patient indicated for additional pneumococcal vaccine given age >50. Pt previously received PPSV23 at age 66 and additional dose of PCV13 at age 68. Current ACIP guidance recommends additional one-time dose of PCV20 to complete pneumococcal vaccine series. Indicated for PCV20 today Time spent reviewing chart: 7 minutes PBM PharmD Pharmacotherapy Rem V12: Order, recommend, and/or administer immunization(s) /reed/ Edson Valero PharmD CLINICAL LABORATORY IMMUNOLOGIST Signed: 06/15/2024 08:36 Receipt Acknowledged By: 06/15/2024 11:55 /reed/ RADHA WALLACE RN,BSN NURSE DIRECTOR WOMEN EDSON VALERO [facility]
--- OUTSIDE RECORDS SUMMARY | 2024-09-23 11:31 | XMS_ITS | Encounter Summary ---
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 Date/Time Encounter Type Encounter Description Reason Provider Source Nov 19, 2023 01:10 PM SELF CARE MNGMENT TRAINING PHYSICAL THERAPY ICD-10-CM 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[place] coronary artery w/o yasmeen pctrs PANCHO RENTERIA IHDeng Encounter Template Text not used by [place] Assessments - Encounter Diagnoses This section includes the primary and secondary diagnoses documented for the Encounter. Date/Time Primary/Secondary Diagnosis Diagnosis Name Provider Source Nov 19, 2023 11:08 PM PRIMARY [place] heart disease of [place] coronary artery w/o ROOSEVELT Bryant [facility] Nov 19, 2023 11:08 PM SECONDARY Pain in left shoulder ROOSEVELT RENTERIA [facility] Plan of Treatment: Future Appointments (+ 6 months) and Future Tests (+/- 45 days) The Plan of Treatment section includes future care activities for the patient from all [place] treatmentfacilities. This section includes future appointments and future orders which are active, pending or scheduled. Future Appointments This section includes appointments that were scheduled to occur 6 months from the date of the Encounter, up to a maximum of 20 appointments. The data comes from all [place] treatment facilities. Appointment Date/Time Appointment Type Appointme nt Facility Name Nov 30, 2023 11:30 AM AMBULATORY - MEDICINE [facility] Dec 09, 2023 10:00 AM AMBULATORY - MEDICINE [facility] Dec 15, 2023 10:40 AM AMBULATORY - MEDICINE [facility] Dec 24, 2023 09:45 AM AMBULATORY - SURGERY [facility] Jan 21, 2024 01:00 PM AMBULATORY - SURGERY [facility] Feb 08, 2024 07:25 AM AMBULATORY - MEDICINE [facility] Apr 01, 2024 01:30 PM AMBULATORY - NONE [facility] Apr 04, 2024 11:30 AM AMBULATORY - SURGERY [facility] Apr 06, 2024 11:00 AM AMBULATORY - MEDICINE [facility] Apr 06, 2024 01:00 PM AMBULATORY - MEDICINE [facility] Apr 18, 2024 11:00 AM AMBULATORY - MEDICINE [facility] May 03, 2024 03:00 PM AMBULATORY - SURGERY [facility] May 11, 2024 10:00 AM AMBULATORY - MEDICINE [facility] May 11, 2024 11:00 AM AMBULATORY - MEDICINE [facility] May 19, 2024 01:00 PM AMBULATORY - MEDICINE [facility] Active, Pending, and Scheduled Orders This section includes a listing of several types of active, pending, and scheduled orders, including clinic medications orders, diagnostic test orders, procedure orders and consult orders; where the start date of the order is 45 days before the date of the Encounter or 45 days after the date of theEncounter. The data comes from all [facility] facilities. Test Date/Time Test Type Test Details Facility Name October 15, 2023 12:00 AM Laboratory - Blood Bank Order ABO/RH - LAB BLOOD [facility] October 15, 2023 06:00 AM Laboratory - Blood Bank Order TYPE & SCREEN - LAB BLOOD [facility] Dec 15, 2023 12:00 AM Laboratory - Chemi stry Order BASIC METABOLIC PANEL GREEN LI/HEP BLD/PLAS PLASMA [facility] Dec 15, 2023 12:00 AM Laboratory - Chemi stry Order MAGNESIUM GREEN LI/HEP BLD/PLAS PLASMA [facility] Lab Results: +/- 30 days of the encounter This section includes the Chemistry and Hematology Lab Results on record with [place] for the patient. Radiology Reports and Pathology Reports are provided separately, in subsequent sections. Lab Results This section contains the Chemistry/Hematology Results that were resulted 30 days before or 30 daysafter the date of the Encounter. Date/Time Source Result Type Result - Unit Interpretation Reference Range Specimen Type Comment Dec 09, 2023 10:53 AM [facility] PROTEIN.URINE(STL) URINE Specimen Type: URINE No comment entered. Ordering Provider: BUBBA SIMS Report Released Date/Time: Dec 02, 2023 03:33 PM Reporting Lab: [address] [address] Performing Lab: [address] [address] PROTEIN URINE 18.8 mg/dL Dec 09, 2023 10:53 AM [facility] MICRAL/CREAT PROFILE (STL) URINE Specimen Typ e: URINE No comment entered. Ordering Provider: BUBBA SIMS Report Released Date/Time: Dec 02, 2023 03:33 PM Reporting Lab: [address] [address] Performing Lab: [address] [address] URINE ALBUMIN (PB-STL) 58.8 mg/L uACR (STL) 44 mg/g H 0-29 CREATININE URINE/OTHERS 133.2 mg/dL 63-1 66 Dec 09, 2023 10:53 AM [facility] CBC BLOOD Specimen Type: BLOOD No comment entered. Ordering Provider: BUBBA SIMS Report Released Date/Time: Dec 02, 2023 03:33 PM Reporting Lab: [address] [address] Performing Lab: [address] [address] WBC 6.5 10*3/uL 3.6-11.2 RBC 4.60 10*6/uL [...] 0.00-0. 20 Nov 30, 2023 12:37 PM [facility] MAGNESIUM PLASMA Specimen Type: PLASM A Comment: No hemolysis noted. Ordering Provider: DIEGO CASE Report Released Date/Time: Nov 30, 2023 12:04 PM Reporting Lab: [address] [address] Performing Lab: [address] [address] MAGNESIUM 1.9 mg/dL 1.6-2.6 Nov 30, 2023 12:37 PM [facility] BASIC METABOLIC PANEL PLASMA Specimen Type: PL ASMA Comment: No hemolysis noted. Ordering Provider: DIEGO CASE Report Released Date/Time: Nov 30, 2023 12:04 PM Reporting Lab: [address] [address] Performing Lab: [address] [address] CREATININE 1.14 mg/dL 0.7-1.3 UREA NITROGEN 19.1 [...] Pain Height Weight Body Mass Index Source Nov 19, 2023 12:40 PM 97.7 89 131/77 16 98 2 70 183.7 26 [facility] Social History: Smoking Status (Most current) and Tobacco Use (All prior to encounter date) This section includes the most current, and the historical, smoking and tobacco- related health factors from the [place] facility where the Encounter took place. Current Smoking Status This section includes the most current smoking, or tobacco-related health factor, from the [place] facility where the Encounter took place. Date/Time Current Smoking Status Comment Lux ity October 15, 2023 06:15 AM ORYX ADMIT TOBACCO SCREEN NO [facility] Tobacco Use History This section includes a history of the smoking, or tobacco-related health factors, that were collected on or before the date of the Encounter. The data comes from the [place] facility where the Encounter took place. Date/Time Smoking Status/Tobacco Use Comment F actoya October 14, 2022 01:17 PM VA-TOBACCO NEVER USED [facility] Mar 13, 2022 05:25 PM ORYX ADMIT TOBACCO SCREEN NO [facility] Apr 20, 2019 11:02 AM VA-TOBACCO FORMER USER [facility] Apr 20, 2019 11:02 AM VA-TOBACCO QUIT 15 YRS OR MORE [facility] Nov 19, 2015 09:23 AM LIFETIME NON-USER OF TOBACCO [facility] May 02, 2014 08:44 AM LIFETIME NON-USER OF TOBACCO [facility] Jun 15, 2013 04:36 PM LIFETIME NON-USER OF TOBACCO [facility] Jun 17, 2012 09:31 AM LIFETIME NON-USER OF TOBACCO [facility] Advance Directives: All historical and current Section Date Range: From patient's date of to the date document was created. This section includes ALL of a patient's completed or amended [place] Advance and Rescinded Directives. The entries below indicate that a directive exists for the patient, but an actual copy is not included with this document. The data comes from all [place] facilities. Date Advance Directives Provider Source Nov 19, 2015 ADVANCE DIRECTIVE DISCUSSION JENNIFER LONDONO [facility] Encounter Notes: All associated encounter notes This section contains the clinical notes associated to the Encounter. Date/Time Encounter Note(s) Provider Source Nov 19, 2023 10:17 PM PHYSICAL THERAPY N OTE: LOCAL TITLE: PT ASSESSMENT STL STANDARD TITLE: PHYSICAL THERAPY NOTE DATE OF NOTE: NOV 19, 2023@22:17 ENTRY DATE: NOV 19, 2023@22:17:28 AUTHOR: DONTE RENTERIA COSIGNER: URGENCY: STATUS: COMPLETED POST-OPERATIVE PHYSICAL THERAPY EVALUATION Time: 7382-5393 mins. Tx: PT Evaluation: 10 mins. Self-care management: 10 mins. Visits to date: F2F 1 Phone 0 Video 0 Cancellations 0 No Show 0 Start of care: 11/19/23 Progress note due: 12/17/23 Treatment plan expires: 05/10/24 Referring provider: [x] Shannon Villanueva NP Attending/Surgeon: []Nathalie Cabrera MD [x]Yuriy Bernstein MD Date/type of surgery: [x] vessel CABG with L radial graft on 10/21/23 [] AVR on [] MVR on Post-op course: Discharged on to [x] home [] [facility]. Diagnosis: -Other people involved in treatment []None [x]Included: Chart Review PMH: 1) Kidney stone (SNOMED CT 70346520) 2) Mixed hyperlipidemia (SNOMED CT 861283731) 3) Permanent cardiac pacemaker (SNOMED CT 255484465996662) 4) Elevated Liver Function Tests 5) Benign essential hypertension 6) Coronary artery disease 7) Hyperlipidemia 8) Elevated PSA 9) Peripheral vascular disease 10) Diabetes mellitus type 1 11) Hypoglycaemia 12) Congestive heart failure 13) Pneumonia 14) Neuropathy 15) Closed extraarticular fracture of distal radius 16) Exposure to potentially hazardous substance 17) Bilateral senile combined form cataracts of eyes 18) Lumbar radiculopathy SUBJECTIVE: Pt. denies pain, clicking, or popping of the sternum. Doing well post-op but reports LUE numbness, ache up arm to neck; worse towards the end of day. 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 Two identifiers used to confirm identity ( and last four SSN) Observation: Incisions/skin integrity: healing well, no concerns Cognition: A&Ox4, able to follow 2-step commands and appropriate in conversation. AROM/Strength: UEs: Grossly 3+/5 or greater (ROM/standardized assessment limited by post-op/sternal precautions). LEs: Grossly WFL and 4/5 per MMT. BUE ROM limited in all planes Posture: rounded shoulder with mild thoracic hyperkyphosis Gait: Distance: community distance Assistive device used: [x] none [] cane [] wheeled walker [] rollator Gait pattern/deviations: unremarkable OUTCOME MEASURES: -Short Performance Physical Battery (SPPB): Balance 1 point if can peform Side by Side: (10sec) Semi Tandem (10seconds) Tandem Stance (10seconds, 2pts if completed 1 pt if 3-9 sec) Balance score:4 Strength: 9.62 5 Times Sit to Stand (4 pts: <11.19sec; 3pts:11.2-13.7; 2pts: 13.7-16.7, 1pts: > 16.7sec, 0pts >60seconds) 5 Times Sit to stand with hands: Strength score: 4 Gait speed: 4 meters: 4pts <4.82sec; 3pts 4.8-6.2sec; 2pts 6.2-8.7 1pts >8.7sec Gait speed score:4 Total score: 12 Norms: Community Dwelling Older Adults (Ginger Cole, Lazaro et al 2016) Fallers : 8.2 Non Fallers: 9.5 Men: 10.4 Women: 9.7 ----- Interpretation ----- 4-6 points = Relative risk of 4.2 to develop ADL-related disability in 4-year period/high risk of mortality, half-way admission, hospitalization, incidence of disability. 7-9 points = Relative risk of 1.6 to develop ADL-related Disability in 4-year period/moderate risk of mortality, half-way admission, hospitalization, incidence of disability. 10-12 points = Low risk of developing ADL-related disability in 4-year period/moderate risk of mortality, half-way admission, hospitalization, incidence of disability. Minimal clinically important differences (MCID) = 1-2 points. INTERVENTIONS: -PT Evaluation: Low Complexity level -Selfcare management/education: Instructed on the purpose and benefits of a home walking program to improve endurance. Instruction in purpose and benefits of using the CORRIE scale for determining optimal exertion. Exercise recommendations are currently for /20 on CORRIE scale, and /10 on Dyspnea scale. Encouraged vet to work towards extending level surface walking time to 20+ mins before attempting inclines or increasing pace. Provided a written handout outlining safe exercise habits, including a sample of an 8 week walking progression. Reviewed purpose of and recommended duration for sternal precautions and educated on the healing process of the sternum. Educated the on the difference between activity level and exercise level and how each affect heart/lung function. Educated the on the difference between aerobic and anaerobic exercise and why aerobic exercise is desirable. Access Code: [email or web address] URL: [email or web address] Date: 11/19/2023 Prepared by: Donte Renteria Exercises - Seated Scapular Retraction - 2 x daily - 5 x weekly - 2 sets - 15 reps - Shoulder External Rotation and Scapular Retraction - 2 x daily - 5 x weekly - 2 sets - 15 reps - Seated Shoulder Flexion Towel Slide at Table Top Full Range of Motion - 2 x daily - 5 x weekly - 2 sets - 15 reps - Seated Thoracic Lumbar Extension - 2 x daily - 5 x weekly - 2 sets - 5 reps - 5 seconds hold ASSESSMENT: 78 y/o referred to PT for a post-operative home conditioning program. Pt tolerated today's session well. Pt was receptive to the education provided and agreed to participate in a home walking program. Shoulder symptoms appear to have impingement component--interventions initiated to address. Will follow-up with pt and complete more detailed testing if symptoms fail to resolve with HEP. Problems to address: Pt is trending towards his baseline but is having some shoulder pain. Goals: Short term goals: (6 weeks) Pt will complete HEP 3x/week for self-management of symptoms Plan: Follow-up with pt by phone or in-person in approximately 2 weeks for HEP progression, self-care management, and pt education until is able to enter a community based cardiac rehabilitation or is independent in a aerobic and strength training HEP. Patient Education Documentation: PATIENT EDUCATION Patient/Caregiver appeared ready for instruction (good eye contact, appropriate questions, active participation, etc.) Person(s) who received education: Patient Education Topic/Teaching Needs: Treatment/Procedure (Non-Surgical) Purpose and benefits of PT Methods used included: Oral: verbal explanation Written: Walking progress log, CORRIE exertion and dyspnea scales, Tips for exercising handout. Teaching outcomes: Good level of understanding Comment: pt. nodded affirmatively and participated in all tasks presented. The patient presented with the following number of personal factors/comorbidities influencing the PT plan of care: -> home setting/barriers to mobility -> level of assistance available at home -> chronicity of disease process -> prior level of function -> number and severity of comorbidities -> social barriers to recovery Total number of elements examined: -> cognition -> vitals -> ROM -> Strength -> balance The patients CLINICAL PRESENTATION was: [x] Stable and/or Uncomplicated: [] Evolving Clinical Presentation with Changing Clinical Characteristics: [] Unstable and Unpredictable Characteristics: Therefore the level of complexity for this patient was: [x] Low, [] Moderate, [] High *Reach me by Teams/Vocera for case discussion, as needed* /reed/ DONTE RENTERIA Physical Therapist Signed: 11/19/2023 23:08 DONTE RENTERIA [facility]
--- OUTSIDE RECORDS SUMMARY | 2024-09-23 11:31 | XMS_ITS | Encounter Summary ---
Author Name [facility] (MD) Organization [facility] (MD) Address [address] [place] [address] Care Team Providers Care Barge Hand Name Role Phone RAUL, DEVIN Primary Care [...] PART A Jun 01, 2012 PART A [id number] PILOMARYSEMAKENNA,SENA VID PATIENT MEDICARE (WNR) MEDICARE (M) PART B Jun 01, 2012 PART B [id number] PILOMARYSEEN,DA VID PATIENT MEDICARE (WNR) MEDICARE (M) PART A Jun 01, 2012 PART A [id number] PILOMARYSEEN,DA VID PATIENT MEDICARE (WNR) MEDICARE (M) PART B Jun 01, 2012 PART B [id number] GOCKEN,DA VID PATIENT MEDICARE (WNR) MEDICARE (M) PART A Jun 01, 1999 PART A [id number] SENA SOTO PATIENT Selected Encounter This section includes the information on record at MD for the Encounter. Date/Time Encounter Type Encounter Description Reason Provider Source Nov 30, 2023 11:30 AM OFFICE O/P EST MOD 30 MIN CARDIOLOGY ICD-10-CM I50.22 Chronic systolic (congestive) heart failure [facility] Encounter Template Text not used by MD Assessments - Encounter Diagnoses This section includes the primary and secondary diagnoses documented for the Encounter. Date/Time Primary/Secondary Diagnosis Diagnosis Name Provider Source Dec 31, 2023 10:51 AM PRIMARY Chronic systolic (congestive) heart failure [facility] Dec 31, 2023 10:51 AM SECONDARY [place] heart disease of [place] coronary artery w/o ang pctrs [facility] Dec 31, 2023 10:51 AM SECONDARY Hyperlipidemia, unspecified [facility] Dec 31, 2023 10:51 AM SECONDARY Mixed hyperlipidemia [facility] M O 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 This section includes future appointments and future orders which are active, pending or scheduled. Future Appointments This section includes appointments that were scheduled to occur 6 months from the date of the Encounter, up to a maximum of 20 appointments. The data comes from all MD treatment facilities. Appointment Date/Time Appointment Type Appointme nt Facility Name Dec 09, 2023 10:00 AM AMBULATORY - MEDICINE [facility] Dec 15, 2023 10:40 AM AMBULATORY - MEDICINE [facility] Dec 24, 2023 09:45 AM AMBULATORY - SURGERY [facility] Jan 21, 2024 01:00 PM AMBULATORY - SURGERY [facility] Feb 08, 2024 07:25 AM AMBULATORY - MEDICINE [facility] Apr 01, 2024 01:30 PM AMBULATORY - NONE [place] [facility] Apr 04, 2024 11:30 AM [facility]ULATORY [facility]ERY [facility] Apr 06, 2024 11:00 AM AMBULATORY - MEDICINE [facility] Apr 06, 2024 01:00 PM AMBULATORY - MEDICINE [facility] Apr 18, 2024 11:00 AM AMBULATORY - MEDICINE [facility] May 03, 2024 03:00 PM AMBULATORY - SURGERY [facility] May 11, 2024 10:00 AM AMBULATORY - MEDICINE [facility] May 11, 2024 11:00 AM AMBULATORY - MEDICINE [facility] May 19, 2024 01:00 PM AMBULATORY - MEDICINE [facility] Active, Pending, and Scheduled Orders This section includes a listing of several types of active, pending, and scheduled orders, including clinic medications orders, diagnostic test orders, procedure orders and consult orders; where the start date of the order is 45 days before the date of the Encounter or 45 days after the date of theEncounter. The data comes from all MD treatment facilities. Test Date/Time Test Type Test Details Facility Name Dec 15, 2023 12:00 AM Laboratory - Chemi stry Order BASIC METABOLIC PANEL GREEN LI/HEP BLD/PLAS PLASMA SP [facility] Dec 15, 2023 12:00 AM Laboratory - Chemi stry Order MAGNESIUM GREEN LI/HEP BLD/PLAS PLASMA SP [facility] Lab Results: +/- 30 days of [...] Type Comment Dec 24, 2023 08:15 AM [facility] URINE STONE PNL (24HR-STL-PB) 24-HOUR URINE Specimen Type: 24-HOUR URINE Comment: THE PATIENT HAS: Hyperoxaluria Hypocitraturia Low urinary pH SUPERSATURATION INDEX WITH RESPECT TO: Uric acid SUSPECTED PROBLEM IS: 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 Uric ACID: 2.78 H Reference range<2.00 Ordering Provider: BUBBA SIMS Report Released Date/Time: Dec 15, 2023 11:05 AM Reporting Lab: [facility] [address] [address] Performing Lab: [address] VOLUME 2.66 >2.00 OXALATE 45 H <45 CITRIC ACID 242 L >320 SULFATE,U-PB STL 17 <30 CREATININE URINE/OTHERS [phone] POTASSIUM URINE/OTHERS 53 19-135 SODIUM URINE/OTHERS 145 <200 CALCIUM URINE/OTHERS 116 <250.0 PHOSPHOROUS URINE/OTHERS 1224 H <1100 URIC ACID URINE/OTHERS 513 <700 MAGNESIUM URINE/OTHER 123 >60.0 .INTERP comment +BRUSHITE 0.10 <2.00 PH(SO) 5.1 L 5.5-7.0 +CALCIUM OXALATE 0.81 <2.00 +SODIUM-URATE 0.34 <2.00 Dec 09, 2023 10:53 AM [facility] PROTEIN.URINE(STL) URINE Specimen Type: URINE No comment entered. Ordering Provider: BUBBA SIMS Report Released Date/Time: Dec 02, 2023 03:33 PM Reporting Lab: [facility] [address] [address] Performing Lab: [facility] [address] [address] PROTEIN URINE 18.8 mg/dL Dec 09, 2023 10:53 AM [facility] MICRAL/CREAT PROFILE (STL) URINE Specimen Typ e: URINE No comment entered. Ordering Provider: BUBBA SIMS Report Released Date/Time: Dec 02, 2023 03:33 PM Reporting Lab: [facility] [address] [address] Performing Lab: [address] [address] URINE ALBUMIN (PB-STL) 58.8 mg/L uACR (STL) 44 mg/g H 0-29 CREATININE URINE/OTHERS 133.2 mg/dL 63-1 66 Dec 09, 2023 10:53 AM [facility] CBC BLOOD Specimen Type: BLOOD No comment entered. Ordering Provider: BUBBA SIMS Report Released Date/Time: Dec 02, 2023 03:33 PM Reporting Lab: [address] [address] Performing Lab: [place] [id number] WBC 6.5 10*3/uL 3.6-11.2 RBC 4.60 10*6/uL [...] 0.00-0. 20 Nov 30, 2023 12:37 PM [facility] MAGNESIUM PLASMA Specimen Type: PLASM A Comment: No hemolysis noted. Ordering Provider: DIEGO CASE Report Released Date/Time: Nov 30, 2023 12:04 PM Reporting Lab: [facility] [address] [facility] [address] Performing Lab: [facility] [address] [facility] [address] MAGNESIUM 1.9 mg/dL 1.6-2.6 Nov 30, 2023 12:37 PM [facility] BASIC METABOLIC PANEL PLASMA Specimen Type: PL ASMA Comment: No hemolysis noted. Ordering Provider: DIEGO CASE Report Released Date/Time: Nov 30, 2023 12:04 PM Reporting Lab: [facility] [address] [facility] [address] Performing Lab: [address] [address] CREATININE 1.14 mg/dL 0.7-1.3 UREA NITROGEN 19.1 [...] Height Weight Body Mass Index Source Nov 30, 2023 11:12 AM 98.2 89 114/69 18 97 0 186.5 27 [facility] Social History: Smoking Status (Most current) and Tobacco Use (All prior to encounter date) This section includes the most current, and the historical, smoking and tobacco- related health factors from the MD facility where the Encounter took place. Current Smoking Status This section includes the most current smoking, or tobacco-related health factor, from the MD facility where the Encounter took place. Date/Time Current Smoking Status Comment Facil ity October 15, 2023 06:15 AM ORYX ADMIT TOBACCO SCREEN NO [facility] Tobacco Use History This section includes a history of the smoking, or tobacco-related health factors, that were collected on or before the date of the Encounter. The data comes from the MD facility where the Encounter took place. Date/Time Smoking Status/Tobacco Use Comment F acility October 14, 2022 01:17 PM VA-TOBACCO NEVER USED [facility] Mar 13, 2022 05:25 PM ORYX ADMIT TOBACCO SCREEN NO [facility] Apr 20, 2019 11:02 AM VA-TOBACCO FORMER USER [facility] Apr 20, 2019 11:02 AM VA-TOBACCO QUIT 15 YRS OR MORE [facility] Nov 19, 2015 09:23 AM LIFETIME NON-USER OF TOBACCO [facility] May 02, 2014 08:44 AM LIFETIME NON-USER OF TOBACCO [facility] Jun 15, 2013 04:36 PM LIFETIME NON-USER OF TOBACCO [facility] Jun 17, 2012 09:31 AM LIFETIME NON-USER OF TOBACCO [facility] Advance Directives: All historical and current Section Date Range: From patient's date of to the date document was created. This section includes ALL of a patient's completed or amended MD Advance and Rescinded Directives. The entries below indicate that a directive exists for the patient, but an actual copy is not included with this document. The data comes from all MD facilities. Date Advance Directives Provider Source Nov 19, 2015 ADVANCE DIRECTIVE DISCUSSION JENNIFER LONDONO [facility] Encounter Notes: All associated encounter notes This section contains the clinical notes associated to the Encounter. Date/Time Encounter Note(s) Provider Source Nov 30, 2023 11:26 AM CARDIOLOGY OUTPATI ENT NOTE: LOCAL TITLE: CARDIOLOGY OUTPATIENT FOLLOW UP STL STANDARD TITLE: CARDIOLOGY OUTPATIENT NOTE DATE OF NOTE: NOV 30, 2023@11:26 ENTRY DATE: NOV 30, 2023@11:26:10 AUTHOR: DIEGO CASE COSIGNER: URGENCY: STATUS: COMPLETED CARDIOLOGY OUTPATIENT FOLLOW UP STL Has ADDENDA MD [facility] FAILURE SERVICE: FOLLOW-UP VISIT NOTE PRINCIPAL AND SECONDARY DIAGNOSES: # HFrEF - TTE 11/2021 35-40% - s/p PPM 11/2012 --> upgrade to [employer] ADVISOR-D 03/2022 # CAD - s/p ESE x 2 to RCA in 09/2013 - C 06/12/2020 showed severe LAD and moderate LCX/OM and RCA disease, s/p successful PCI of proximal and mid LAD - s/p CABG x3 (ABBOTT->LAD, Left radial artery to OM and SVG to PDA) at [facility] with Dr. Bernstein on 10/21/2023 # H/o CHB s/p permanent pacemaker 12/10/2012, upgrade to [employer] SAL[employer] ADVISOR-D in 03/2022 # H/O Hyperkalemia # HTN # Type I diabetes since age 37 yrs # Mild JARRED CARE TEAM: 1. DEVIN CARTER N INTERVAL HISTORY: Mr. Soto is a 77 y/o with PMH which includes CAD s/p ESE x 2 to RCA 10/13/2013 (LHC in 09/2013 showed 40-50% LCX, patent stent to OM, 30-40% lesion distal to stent in OM, ostial diag lesion 40%, with tandem 60-70% lesions), HFrEF s/p [employer] SAL[employer] ADVISOR-D, h/o complete heart block s/p pacemaker in 12/10/2012, h/o acute pericarditis (now resolved), at age 37 which led to the diagnosis of type I diabetes, HTN, and HLD. No interim ED visits or hospitalizations for cardiac issues since last visit. Since his last visit, he had a shock for ventricular fibrillation during exertional exercise in 09/17/2023. Seen by Dr. Douglas 10/06/2023. The electrograms were reviewed by Dr. Douglas and consistent with sudden fine ventricular fibrillation, and given the clinical scenario during exertion is most likely consistent with ischemia. He is scheduled for LHC this week. Last clinic visit 10/12/2023. Since that time, he underwent LHC for VF. He then underwent CABG x3 (ABBOTT->LAD, Left radial artery to OM and SVG to PDA) at [facility] with Dr. Bernstein on 10/21/2023. TODAY: He is accompanied by his Arley. He walked three miles this morning without stopping. Two days ago he walked a 5k at a pace of 16 minutes per mile. Home BPs are in the 110s-120s/60s-70s. HRs are in the 80s-90s. Weight is stable ~180 lbs. Denies leg swelling, orthopnea, PND. Denies chest pain, chest tightness, shortness of breath, dizziness/LH, syncope. Since the CABG, he has not been taking imdur or entresto. Of note, a 12 point review of systems was performed; all other review of systems negative, except as listed in the interval history. PAST MEDICAL HISTORY: 1) Kidney stone (SNOMED CT 07773494) 2) Mixed hyperlipidemia (SNOMED CT 712344476) 3) Permanent cardiac pacemaker (SNOMED CT [id number]) 4) Elevated Liver Function Tests 5) Benign [...] A DAY FOR POSTOPERATIVE EYE PAIN 13) METOPROLOL SUCCINATE 50MG SA TAB TAKE ONE-HALF TABLET ACTIVE BY MOUTH ONCE A DAY SWALLOW WHOLE, DO NOT CRUSH OR CHEW (TABLETS MAY BE CUT IN HALF). 14) PANTOPRAZOLE NA 40MG EC TAB TAKE ONE TABLET BY MOUTH ACTIVE EVERY MORNING BEFORE A MEAL TAKE 30 MINUTES BEFORE MEAL(S) 15) TAMSULOSIN HCL 0.4MG CAP TAKE ONE CAPSULE BY MOUTH ACTIVE EVERY EVENING APPROXIMATELY 30 MINUTES AFTER THE SAME MEAL EACH DAY - All cardiac medications were reconciled during the visit. metop XL 25 asa 81 atorva 20 PHYSICAL EXAM: Date Vital Measurement Qualifiers 11/30/2023 11:12 Temp F (C) 98.2 (36.8) Pulse 89 Respir 18 BP 114/69 Wt lbs (kg)[BMI] 186.5 (84.59)[27] Pain 0 POx (L/Min)(%) 97 GENERAL: Sclera anicteric, PERRLA, [...] and affect appropriate DIAGNOSTIC DATA: ###. ECHOCARDIOGRAM: -The echocardiogram was reviewed, with findings of: TTE 12/11/2021 1. Severe left ventricular enlargement. [...] rhythm at 50 bpm ###. CARDIAC CATH: [facility] on 06/12/2020 -severe LAD and moderate LCX/OM and RCA disease. He underwent successful PCI of proximal and mid LAD. ###. ICD: s/p PPM 11/2012 --> upgrade to [employer] SAL[employer] ADVISOR-D 03/2022 ###. Current NYHA Class: I ###. LABORATORIES: COMPREHENSIVE METABOLIC PANEL SODIUM 140 mEq/L 10/16/2023 06:00 POTASSIUM 4.5 mEq/L 10/16/2023 06:00 CHLORIDE 106 mEq/L 10/16/2023 06:00 UREA NITROGEN 21.4 mg/dL 10/16/2023 06:00 CREATININE 1.09 mg/dL 10/16/2023 06:00 CALCIUM 9.5 mg/dL 10/16/2023 06:00 PROTEIN 6.5 g/dL 09/03/2023 13:49 ALBUMIN 4.1 g/dL 09/03/2023 13:49 ALKALINE PHOSPHATASE 158 H U/L 09/03/2023 13:49 ALT/SGPT 23 U/L 09/03/2023 13:49 AST/SGOT 27 U/L 09/03/2023 13:49 TOTAL BILIRUBIN 1.1 mg/dL 09/03/2023 13:49 CARBON DIOXIDE 26 mEq/L 10/16/2023 06:00 GLUCOSE 132 H mg/dL 10/16/2023 06:00 EGFR (CKD-EPI 2020) 70.3 10/16/2023 06:00 COMPLETE BLOOD COUNT WBC 4.4 10*3/uL 10/16/2023 06:00 RBC 5.28 10*6/uL 10/16/2023 06:00 HGB 16.0 g/dL 10/16/2023 06:00 HCT 49.1 H % 10/16/2023 06:00 MCV 93.0 fL 10/16/2023 06:00 MCH 30.3 pg 10/16/2023 06:00 MCHC 32.6 L g/dL 10/16/2023 06:00 RDW 13.6 % 10/16/2023 06:00 PLT 130 L 10*3/uL 10/16/2023 06:00 MPV 10.8 fL 10/16/2023 06:00 NEUTROPHILS, AUTO % 52 % 10/16/2023 06:00 LYMPHOCYTES, AUTO % 34 % 10/16/2023 06:00 MONOCYTES, AUTO % 11 % 10/16/2023 06:00 EOSINOPHILS, AUTO % 3 % 10/16/2023 06:00 BASOPHILS, AUTO % 1 % 10/16/2023 06:00 NEUTROPHILS, ABSOLUTE 2.29 10*3/uL 10/16/2023 06:00 LYMPHOCYTES, ABSOLUTE 1.47 10*3/uL 10/16/2023 06:00 MONOCYTES, ABSOLUTE 0.47 10*3/uL 10/16/2023 06:00 EOSINOPHILS, ABSOLUTE 0.11 10*3/uL 10/16/2023 06:00 BASOPHILS, ABSOLUTE 0.02 10*3/uL 10/16/2023 06:[address] IMMATURE PLT FRACTION 2.7 % 10/16/2023 06:00 COAGULATION STUDIES INR VALUE 1.0 INR 10/15/2023 06:20 PROTIME 10.9 sec 10/15/2023 06:20 No PTT EO data found HGA1C: HGA1C 6.8 H % 09/03/2023 13:49 LIPIDS TRIGLYCERIDE 67 mg/dL 09/03/2023 13:49 CHOLESTEROL 134 mg/dL 09/03/2023 13:49 HDL(New) 44 mg/dL 09/03/2023 13:49 CALCULATED LDL 77 mg/dL 09/03/2023 13:49 ASSESSMENT AND PLAN: Mr. Soto is a 77 y/o with PMH which includes CAD s/p PCI, HFrEF s/p [employer] ADVISOR-D, h/o complete heart block s/p pacemaker in 12/10/2012, h/o acute pericarditis (now resolved) at age 37 which led to the diagnosis of type I diabetes, HTN, and HLD. He appears euvolemic today, NYHA Class I. BARRIERS TO CARE AND CANDIDACY FOR ADVANCED THERAPIES: - age # HFrEF (likely non-ischemic) with upgrade to [employer] SAL[employer] ADVISOR-D 03/2022: - fluctuating EF, most recent TTE 11/2021 35-40% - metop XL increase from 25mg daily to 50mg daily - labs today before restarting entresto - he has not tolerated even 12.5mg spironolactone every other day due to hyperkalemia - lasix 20mg prn, has not needed for months - no SGLT2i (type 1 DM) - encouraged daily am weights, VS trending, salt restriction, exercise #. Vfib s/p ICD shock 09/17/2023 - seen by Dr. Douglas 10/06/2023 - scheduled for [facility] 10/15/2023 # CAD - s/p ESE x 2 to RCA in 09/2013 - [facility] 06/12/2020 showed severe LAD and moderate LCX/OM and RCA disease, s/p successful PCI of proximal and mid LAD - CABG x3 (ABBOTT->LAD, Left radial artery to OM and SVG to PDA) at [facility] with Dr. Bernstein on 10/21/2023 - referral to [facility] - denies angina - atorvastatin 20mg daily - asa 81mg daily - imdur dc'd following CABG, no indication to restart at this time - sl tng, reinstructed on use - recommend heart healthy diet # H/o CHB s/p permanent pacemaker 12/10/2012, upgrade to [employer] SAL[employer] ADVISOR-D in 03/2022 - device followed in EP clinic # H/O Hyperkalemia - has tolerated entresto, but not AA # HTN - mediacation as above - encouraged home BP monitoring - instructed to notify us if SBP <100 or LH/dizziness # Type I diabetes since age 37 yrs - followed by endocrinology # Mild JARRED - RDI 9.5/AHI 7.7, but severe in supine position from PSG 07/2016 - he does not wear CPAP, he declines repeat PSG # Dispo - RTC 4 months Thank you for allowing us to participate in this kit [facility]. Please do not hesitate to call the HF team with any questions or concerns. /reed/ Diego Case PA-C Cardiology Physician Fit Model Signed: 12/01/2023 15:11 Receipt Acknowledged By: 12/07/2023 12:19 /ankit HIGGINS MD, PhD 12/01/2023 ADDENDUM STATUS: COMPLETED Reviewed labs and called Mr. Soto to discuss results. Restart entresto 24/26mg bid. Repeat labs 12/14. He expressed understanding and agreement with the plan. /reed/ Diego Case PA-C Cardiology Physician Fit Model Signed: 12/01/2023 15:12 12/07/2023 ADDENDUM STATUS: COMPLETED I have reviewed the note by YOSI Case and have no further recommendations. It is good he is not an SGLT2i given type I DM. /ankit HIGGINS MD, PhD Signed: 12/07/2023 12:19 DIEGO CASE [facility]
--- OUTSIDE RECORDS SUMMARY | 2024-09-23 11:31 | XMS_ITS | Encounter Summary ---
Author Name [facility] [facility] [place] [facility] [place] Address [address] [place] [address] Care Team Providers Care Water Filterer Name Role Phone DEVIN CARTER Primary Care [...] Member ID Insurance Provider's Telephone Number Policy Petesron's Name Patient's Relationship to Policy Peterson MEDICARE (WNR) MEDICARE (M) PART A Jun 01, 2012 PART A [id number] KARLMAKENNASENA VID PATIENT MEDICARE (WNR) MEDICARE (M) PART B Jun 01, 2012 PART B [id number] SNEA SOTO VID PATIENT MEDICARE (WNR) MEDICARE (M) PART A Jun 01, 2012 PART A [id number] SENA SOTO VID PATIENT MEDICARE (WNR) MEDICARE (M) PART B Jun 01, 2012 PART B [id number] SENA SOTO PATIENT MEDICARE (WNR) MEDICARE (M) PART A Jun 01, 1999 PART A [id number] SENA SOTO PATIENT Selected Encounter This section includes the information on record at [place] for the Encounter. Date/Time Encounter Type Encounter Description Reason Provider Source Dec 09, 2023 10:00 AM OFF/OP CNSLTJ NEW/EST LOW 30 CARDIO-PULM REHAB ICD-10-CM 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[place] coronary artery w/[facility] Encounter Template Text not used by [place] Assessments - Encounter Diagnoses This section includes the primary and secondary diagnoses documented for the Encounter. Date/Time Primary/Secondary Diagnosis Diagnosis Name Provider Source Dec 09, 2023 10:26 AM PRIMARY [place] heart disease of [place] coronary artery w/o MARIA DEL CARMEN [place] [facility] Dec 09, 2023 10:26 AM SECONDARY Presence of cardiac pacemaker MARIA DEL CARMEN [facility] Dec 09, 2023 10:26 AM SECONDARY Unspecified systolic (congestive) heart failure MARIA DEL CARMEN [facility] Plan of Treatment: Future Appointments [...] Appointment Type Appointme nt Facility Name Dec 15, 2023 10:40 AM AMBULATORY - MEDICINE [facility] Dec 24, 2023 09:45 AM AMBULATORY - SURGERY [facility] Jan 21, 2024 01:00 PM AMBULATORY - SUR[facility]ERY [facility] Feb 08, 2024 07:25 AM AMBULATORY - MEDICINE [facility] Apr 01, 2024 01:30 PM AMBULATORY - NONE [facility] Apr 04, 2024 11:30 AM AMBULATORY - SURGERY [facility] Apr 06, 2024 11:00 AM AMBULATORY - MEDICINE [facility] Apr 06, 2024 01:00 PM AMBULATORY - MEDICINE [facility] Apr 18, 2024 11:00 AM AMBULATORY - MEDICINE [facility] May 03, 2024 03:00 PM AMBULATORY - SURGERY [facility] May 11, 2024 10:00 AM AMBULATORY - MEDICINE [facility] May 11, 2024 11:00 AM AMBULATORY - MEDICINE [facility] May 19, 2024 01:00 PM AMBULATORY [...] of theEncounter. The data comes from all [place] treatment facilities. Test Date/Time Test Type Test Details Facility Name Dec 15, 2023 12:00 AM Laboratory - Chemi stry Order BASIC METABOLIC PANEL GREEN LI/HEP BLD/PLAS PLASMA SP [facility] Dec 15, 2023 12:00 AM Laboratory - Chemi stry Order MAGNESIUM GREEN LI/HEP BLD/PLAS PLASMA [facility] Lab Results: +/- 30 days of [...] Type Comment Dec 24, 2023 08:15 AM [facility] URINE STONE PNL (24HR-STL-PB) 24-HOUR URINE Specimen Type: 24-HOUR URINE Comment: THE PATIENT HAS: Hyperoxaluria Hypocitraturia Low urinary pH SUPERSATURATION INDEX WITH RESPECT TO: Uric acid SUSPECTED PROBLEM IS: 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 Uric ACID: 2.78 H Reference range<2.00 Ordering Provider: BUBBA SIMS Report Released Date/Time: Dec 15, 2023 11:05 AM Reporting Lab: [facility] [address] [facility] [address] Performing Lab: [facility] [id number] [place] [address] VOLUME 2.66 >2.00 OXALATE 45 H <45 CITRIC ACID 242 L >320 SULFATE,U-PB STL 17 <30 CREATININE URINE/OTHERS [id number] POTASSIUM URINE/OTHERS 53 19-135 SODIUM URINE/OTHERS 145 <200 CALCIUM URINE/OTHERS 116 <250.0 PHOSPHOROUS URINE/OTHERS 1224 H <1100 URIC ACID URINE/OTHERS 513 <700 MAGNESIUM URINE/OTHER 123 >60.0 .INTERP comment +BRUSHITE 0.10 <2.00 PH(SO) 5.1 L 5.5-7.0 +CALCIUM OXALATE 0.81 <2.00 +SODIUM-URATE 0.34 <2.00 Dec 09, 2023 10:53 AM [facility] PROTEIN.URINE(STL) URINE Specimen Type: URINE No comment entered. Ordering Provider: BUBBA SIMS Report Released Date/Time: Dec 02, 2023 03:33 PM Reporting Lab: [facility] [address] [facility] [address] Performing Lab: [address] [address] PROTEIN URINE 18.8 mg/dL Dec 09, 2023 10:53 AM [facility] MICRAL/CREAT PROFILE (STL) URINE Specimen Typ e: URINE No comment entered. Ordering Provider: BUBBA SIMS Report Released Date/Time: Dec 02, 2023 03:33 PM Reporting Lab: [facility] [address] [facility] [facility] [address] Performing Lab: [facility] [address] [place] [phone] URINE ALBUMIN (PB-STL) 58.8 mg/L uACR (STL) 44 mg/g H 0-29 CREATININE URINE/OTHERS 133.2 mg/dL 63-1 66 Dec 09, 2023 10:53 AM [facility] CBC BLOOD Specimen Type: BLOOD No comment entered. Ordering Provider: BUBBA SIMS Report Released Date/Time: Dec 02, 2023 03:33 PM Reporting Lab: [facility] [address] [facility] [address] Performing Lab: [address] [address] WBC 6.5 10*3/uL 3.6-11.2 RBC 4.60 10*6/uL [...] 0.00-0. 20 Nov 30, 2023 12:37 PM [facility] MAGNESIUM PLASMA Specimen Type: PLASM A Comment: No hemolysis noted. Ordering Provider: DIEGO CASE Report Released Date/Time: Nov 30, 2023 12:04 PM Reporting Lab: [facility] [address] [place] [address] Performing Lab: [address] [address] MAGNESIUM 1.9 mg/dL 1.6-2.6 Nov 30, 2023 12:37 PM [facility] BASIC METABOLIC PANEL PLASMA Specimen Type: PL ASMA Comment: No hemolysis noted. Ordering Provider: DIEGO CASE Report Released Date/Time: Nov 30, 2023 12:04 PM Reporting Lab: [facility] [address] [facility] [address] Performing Lab: [facility] [address] [address] CREATININE 1.14 mg/dL 0.7-1.3 UREA NITROGEN 19.1 mg/dL 9.0-25.0 GLUCOSE 158 mg/dL H 72-99 SODIUM 138 meq/L 136-145 POTASSIUM 4.9 meq/L 3.5-5 CHLORIDE 105 meq/L 98-107 CARBON DIOXIDE 24 meq/L 22-31 CALCIUM 9.4 mg/dL 8.4-10.4 EGFR (CKD-EPI 2020) 66.7 >60 Advance Directives: All historical and current Section [...] 19, 2015 ADVANCE DIRECTIVE DISCUSSION JENNIFER LONDONO [facility] Encounter Notes: All associated encounter notes This section contains the clinical notes associated to the Encounter. Date/Time Encounter Note(s) Provider Source Dec 09, 2023 07:24 AM CARDIOPULMONARY REHABILITATION CONSULT: LOCAL TITLE: CARDIOPULMONARY REHAB CONSULT [facility] STANDARD TITLE: CARDIOPULMONARY REHABILITATION CONSULT DATE OF NOTE: DEC 09, 2023@07:24 ENTRY DATE: DEC 09, 2023@07:24:31 AUTHOR: GRETCHEN RENE COSIGNER: URGENCY: STATUS: COMPLETED Mr. Soto is referred by cardiology and see their prior notes for full detais. Briefly, he is a 78 year old man with coronary artery disease status post multiple previous interventions, history of complete heart block status post pacemaker placement in 2012 upgraded to a biventricular pacemaker with defibrillator in 2021, heart failure with reduced ejection fraction which is subsequently recovered. He was trail running in August 2023 and had an ICD discharge. Review of the episodes showed that he had ventricular fibrillation. A subsequent cardiac catheterization in September showed severe disease at the distal portion of left main coronary artery and he underwent urgent three-vessel coronary artery bypass grafting on October 20. He has done well since then and has restarted a vigorous regimen of exercise. He currently walks 2 to 3 miles per day at a pace of approximately 3.5 mph. He denies any chest pain, orthopnea or PND. He had an episode of hypotension leading to a fall in his bathroom last week after adjustment of he started Entresto and an increased dose of metoprolol. Other medical problems include type 1 diabetes with neuropathy, peripheral arterial disease, and depression. He is a lifelong non-smoker. He is a former marathon runner. Active Outpatient Medications (including Supplies): Active Outpatient [...] FOR HIGH BLOOD PRESSURE 14) METOPROLOL SUCCINATE 50MG SA TAB TAKE ONE-HALF TABLET ACTIVE (S) [...] MINUTES AFTER THE SAME MEAL EACH DAY Vital signs today are a blood pressure of 119/75, pulse of 92 and oxygen saturation of 99% on room air. He is in no acute distress at rest. The neck is without JVD. The lungs are clear to auscultation. The heart is a regular rate and rhythm and no murmurs or gallops. His sternotomy scar is well-healed. There is no peripheral edema. Mr. Soto is doing well following his coronary artery bypass grafting. He is currently achieving an adequate level of exercise. However I stressed the importance of monitoring his level of his exercise using perceived exertion stressing that he gets the benefits of exercise without pushing himself to extremes. There is no need for further follow-up in this clinic. /reed/ GRETCHEN RENE Staff Physician - Pulmonary Signed: 12/09/2023 10:26 GRETCHEN RENE [facility]
--- OUTSIDE RECORDS SUMMARY | 2024-09-23 11:32 | XMS_ITS ---
Author Name [facility] [place] Address [address] [place] [address] Care Team Providers Care Chief School Finance Officer Name Role Phone RAUL, DEVIN Primary Care [...] PART A Jun 01, 2012 PART A [id number] PILOMARYSEMAKENNA,SENA VID PATIENT MEDICARE (WNR) MEDICARE (M) PART B Jun 01, 2012 PART B [id number] PILOMARYSEEN,DA VID PATIENT MEDICARE (WNR) MEDICARE (M) PART A Jun 01, 2012 PART A [id number] PF90 [id number] PILOMARYSEEN,DA VID PATIENT MEDICARE (WNR) MEDICARE (M) PART B Jun 01, 2012 PART B [id number] PF90 GOCKEN,DA VID PATIENT MEDICARE (WNR) MEDICARE (M) PART A Jun 01, 1999 PART A [id number] PF90 SENA FUENTES PATIENT Selected Encounter This section includes the information on record at [place] for the Encounter. Date/Time Encounter Type Encounter Description Reason Provider Source Jun 15, 2024 01:00 PM OFF/OP EST SEPTEMBER X REQ PHY/QHP PRIMARY CARE/MEDICINE ICD-10-CM Z23 Encounter for immunization CORTNEY BETHEA IHDeng Encounter Template Text not used by [place] Assessments - Encounter Diagnoses This section includes the primary and secondary diagnoses documented for the Encounter. Date/Time Primary/Secondary Diagnosis Diagnosis Name Provider Source Jun 16, 2024 10:55 AM PRIMARY Encounter for immunization RADHA WALLACE [facility] Plan of Treatment: Future Appointments (+ [...] 05, 2024 01:00 PM AMBULATORY - MEDICINE [facility] October 06, 2024 11:00 AM AMBULATORY - MEDICINE [facility] October 12, 2024 02:00 PM AMBULATORY - MEDICINE [facility] Dec 06, 2024 10:40 AM AMBULATORY - MEDICINE [facility] Lab Results: +/- 30 days of [...] Type Comment Jun 15, 2024 04:11 PM [facility] OCCULT BLOOD FIT X1 SCREEN FECES Specimen Typ e: FECES No comment entered. Ordering Provider: DEVIN CARTER Report Released Date/Time: Apr 18, 2024 11:49 AM Reporting Lab: [facility] [address] [facility] [address] Performing Lab: [facility] [address] [address] OCCULT BLOOD (FIT) #1 OF 1 Negative Nega tive Immunizations: All administered on the encounter date This section contains immunizations associated to the Encounter. Immunization Series Date Issued Administered By Site Reaction Lot Number CVX Code Drug Highballer Comment(s) Source COVID-19 (PFIZER), MRNA, LNP-S, PF, GAMAL-SUCROSE, 30 MCG/0.3 ML (AGES 12+ YEARS) 1 Jun 15, 2024 KIANACORTNEY Lopez RIGHT DELTO ID [id number] [employer], [place] AD[facility]IST[facility] D AT [facility] PNEUMOCOCCAL CONJUGATE PCV20, POLYSACCHARID E [id number] CONJUGATE, ADJUVANT, PF Jun 15, 2024 CORTNEY BETHEA LEFT DELTO ID [id number] [employer] ADMINISTERE D AT [facility] Social History: Smoking Status (Most current) and [...] Date/Time Current Smoking Status Comment Lux alfonso Apr 18, 2024 11:00 AM VA-TOBACCO NEVER U SED OTHER TYPE [facility] Tobacco Use History This section includes a history of the smoking, or tobacco-related health factors, that were collected on or before the date of the Encounter. The data comes from the [place] facility where the Encounter took place. Date/Time Smoking Status/Tobacco Use Comment F actoya Apr 18, 2024 11:00 AM VA-TOBACCO NEVER U SED OTHER TYPE [facility] Nov 09, 2020 11:00 AM VA-TOBACCO NEVER USED [facility] October 22, 2017 03:06 PM VA-TOBACCO NEVER USED [facility] Mar 06, 2017 01:35 PM LIFETIME NON-USER OF TOBACCO [facility] Advance Directives: All historical and current [...] 19, 2015 ADVANCE DIRECTIVE DISCUSSION JENNIFER LONDONO [facility] Encounter Notes: All associated encounter notes This section contains the clinical notes associated to the Encounter. Date/Time Encounter Note(s) Provider Source Jun 15, 2024 01:18 PM NURSING NOTE: LOCAL TITLE: V15 PACT FACE TO FACE NOTE ST STANDARD TITLE: NURSING NOTE DATE OF NOTE: JUN 15, 2024@13:18 ENTRY DATE: JUN 15, 2024@13:18:14 AUTHOR: CORTNEY BETHEA EXP COSIGNER: URGENCY: STATUS: COMPLETED Nurse Visit: Patient Identifiers : Full Name Date of Reason for visit: covid shot Mode of Arrival: Ambulatory Allergy Review: CIPROFLOXACIN, LISINOPRIL Allergy list reviewed and remains current. Clinic Administered Medications: Indication: COVID SHOT Provider order verified Allergies verified Verbalized understanding and verbal consent given for the following clinic administered medication: Medication #1: Source of Medication: Clinic Supplied Medication: covid shot Amount/Dose Ordered: 0.3ml Highballer: pfizer Lot#: [id number] Exp Date: Route: IM Injection site: Right Deltoid Medication #2: Source of Medication: Clinic Supplied Medication: pneumonia shot Amount/Dose Ordered: 0.5ml Highballer: prevnar 20 Lot#: [id number] Exp Date: 2024 Route: IM Injection site: Left Deltoid Patient toleration: Tolerated well Follow up instructions: No follow up required CLINIC MEDICATIONS GIVEN VIA INJECTION: COVID-19 Pfizer Monovalent (Comirnaty) Administered: COVID-19 (PFIZER), MRNA, LNP-S, PF, GAMAL-SUCROSE, 30 MCG/0.3 ML (AGES 12+ YEARS) Date Administered: Jun 15, 2024 13:00 Series: Series 1 Highballer: [employer] Lot: [id number] Exp Date: Sep 05, [address] [facility]: [phone] Admin Route/Site: INTRAMUSCULAR/RIGHT DELTOID Dosage: 0.3mL Vaccine Information Statement(s): COVID-19 MRNA VACCINE (12+ YRS) VIS Mar 17, 2024 (ARGENTINE) Order By: Policy Administered By: Cortney Bethea Vaccine administered without complications. PNEUMOCOCCAL VACCINE (PCV15/PCV20) PCV20 (Prevnar 20) Administered: PNEUMOCOCCAL CONJUGATE PCV20, POLYSACCHARIDE [id number] CONJUGATE, ADJUVANT, PF Date Administered: Jun 15, 2024 13:00 Series: (None selected) Highballer: [employer] Lot: [id number] Exp Date: May 31, [address] [facility]: [phone] Admin Route/Site: INTRAMUSCULAR/LEFT DELTOID Dosage: 0.5mL Vaccine Information Statement(s): PNEUMOCOCCAL CONJUGATE ([id number]) VIS October 10, 2022 (ARGENTINE) Order By: Policy Administered By: Cortney Bethea Vaccine Information Sheet (VIS) was given to the patient/caregiver, education regarding adverse reactions was discussed, as well as barriers to learning, if any, were acknowledged. /reed/ CORTNEY BETHEA LPN LICENSED PRACTICAL NURSE Signed: 06/15/2024 13:32 CORTNEY BETHEA [facility]
--- OUTSIDE RECORDS SUMMARY | 2024-09-23 11:32 | XMS_ITS | Encounter Summary ---
Author Name [facility] [place] [facility] [place] Address [address] [place] [address] Care Team Providers Care Physical Plant Manager Name Role Phone RAUL DEVIN Primary Care [...] PART A Jun 01, 2012 PART A [id number] ALFREDO,SENA VID PATIENT MEDICARE (WNR) MEDICARE (M) PART B Jun 01, 2012 PART B [id number] ALFREDO,SENA VID PATIENT MEDICARE (WNR) MEDICARE (M) PART A Jun 01, 2012 PART A [id number] ALFREDO,DA VID PATIENT MEDICARE (WNR) MEDICARE (M) PART B Jun 01, 2012 PART B [id number] ALFREDO,DA VID PATIENT MEDICARE (WNR) MEDICARE (M) PART A Jun 01, 1999 PART A [id number] SENA FUENTES PATIENT Selected Encounter This section includes the information on record at [place] for the Encounter. Date/Time Encounter Type Encounter Description Reason Pro vider Source Nov 05, 2023 12:00 PM Outpatient Encounter [facility]ITY [facility]ARE CONSULT I[facility] Encounter Template Text not used by [facility] Plan of Treatment: Future Appointments (+ 6 months) and Future Tests (+/- 45 days) The Plan of Treatment section includes future care activities for the patient from all [place] treatmentfacilities. This section includes future appointments and future orders which are active, pending or scheduled. Future Appointments This section includes appointments that were scheduled to occur 6 months from the date of the Encounter, up to a maximum of 20 appointments. The data comes from all [place] treatment facilities. Appointment Date/Time Appointment Type Appointme nt Facility Name Nov 06, 2023 08:00 AM AMBULATORY - NONE [facility] Nov 19, 2023 01:00 PM AMBULATORY - SURGERY [facility] Nov 30, 2023 11:30 AM AMBULATORY - MEDICINE [facility] Dec 09, 2023 10:00 AM AMBULATORY - MEDICINE [facility] Dec 15, 2023 10:40 AM AMBULATORY - MEDICINE [facility] Dec 24, 2023 09:45 AM AMBULATORY - SURGERY [facility] Jan 21, 2024 01:00 PM AMBULATORY - SURGERY [facility] Feb 08, 2024 07:25 AM AMBULATORY - MEDICINE . [facility] Apr 01, 2024 01:30 PM AMBULATORY - NONE [facility] Apr 04, 2024 11:30 AM AMBULATORY - SURGERY [facility] Apr 06, 2024 11:00 AM AMBULATORY - MEDICINE . [facility] Apr 06, 2024 01:00 PM AMBULATORY - MEDICINE [facility] Apr 18, 2024 11:00 AM AMBULATORY - MEDICINE [facility] May 03, 2024 03:00 PM [facility]ULATORY - SUR[facility]ERY [facility] [place] [facility] Active, Pending, and Scheduled Orders This section includes a listing of several types of active, pending, and scheduled orders, including clinic medications orders, diagnostic test orders, procedure orders and consult orders; where the start date of the order is 45 days before the date of the Encounter or 45 days after the date of theEncounter. The data comes from all [place] treatment facilities. Test Date/Time Test Type Test Details Facility Name October 15, 2023 12:00 AM Laboratory - Blood Bank Order ABO/RH - LAB BLOOD [facility] October 15, 2023 06:00 AM Laboratory - Blood Bank Order TYPE & SCREEN - LAB BLOOD [facility] Dec 15, 2023 12:00 AM Laboratory - Chemi stry Order BASIC METABOLIC PANEL GREEN LI/HEP BLD/PLAS PLASMA [facility] Dec 15, 2023 12:00 AM Laboratory - Chemi stry Order MAGNESIUM GREEN LI/HEP BLD/PLAS PLASMA [facility] Lab Results: +/- 30 days of the encounter This section includes the Chemistry and Hematology Lab Results on record with [place] for the patient. Radiology Reports and Pathology Reports are provided separately, in subsequent sections. Lab Results This section contains the Chemistry/Hematology Results that were resulted 30 days before or 30 daysafter the date of the Encounter. Date/Time Source Result Type Result - Unit Interpretation Reference Range Specimen Type Comment Nov 30, 2023 12:37 PM [facility] MAGNESIUM PLASMA Specimen Type: PLASMA Comment: No hemolysis noted. Ordering Provider: DIEGO CASE Report Released Date/Time: Nov 30, 2023 12:04 PM Reporting Lab: [facility] [address] [facility] [address] Performing Lab: [facility] [address] [address] MAGNESIUM 1.9 mg/dL 1.6-2.6 Nov 30, 2023 12:37 PM [facility] BASIC METABOLIC PANEL PLASMA Specimen Type: PL ASMA Comment: No hemolysis noted. Ordering Provider: DIEGO CASE Report Released Date/Time: Nov 30, 2023 12:04 PM Reporting Lab: [facility] [address] [place] [phone] Performing Lab: [address] [address] CREATININE 1.14 mg/dL 0.7-1.3 UREA NITROGEN 19.1 mg/dL 9.0-25.0 GLUCOSE 158 mg/dL H 72-99 SODIUM 138 meq/L 136-145 POTASSIUM 4.9 meq/L 3.5-5 CHLORIDE 105 meq/L 98-107 CARBON DIOXIDE 24 meq/L 22-31 CALCIUM 9.4 mg/dL 8.4-10.4 EGFR (CKD-EPI 2020) 66.7 >60 October 16, 2023 09:28 PM [facility] GLUCOSE,BLOOD-poct (STL) BLOOD Specimen Type: BLOOD Comment: Test Performed by: [id number] Meter #: [id number] Ordering Provider: SOLOMON DEMARCO Report Released Date/Time: October 16, 2023 11:21 PM Reporting Lab: [address] [address] Performing Lab: [address] [address] GLUCOSE,BLOOD-poct (STL) 97 mg/dL 72-99 October 16, 2023 04:56 PM [facility] GLUCOSE,BLOOD-poct (STL) BLOOD Specimen Type: BLOOD Comment: Test Performed by: [id number] Meter #: [id number] Ordering Provider: SOLOMON DEMARCO Report Released Date/Time: October 16, 2023 05:15 PM Reporting Lab: [address] [address] Performing Lab: [address] [address] GLUCOSE,BLOOD-poct (STL) 175 mg/dL H 72-99 October 16, 2023 11:33 AM [facility] GLUCOSE,BLOOD-poct (STL) BLOOD Specimen Type: BLOOD Comment: Test Performed by: [id number] Meter #: [id number] Ordering Provider: SOLOMON DEMARCO Report Released Date/Time: October 16, 2023 12:22 PM Reporting Lab: [address] [address] Performing Lab: [address] [address] GLUCOSE,BLOOD-poct (STL) 167 mg/dL H 72-99 October 16, 2023 06:59 AM [facility] BASIC METABOLIC PANEL PLASMA Specimen Type: PL ASMA Comment: No hemolysis noted. Ordering Provider: CYNTHIA CABRERA Report Released Date/Time: October 15, 2023 04:22 PM Reporting Lab: [address] [address] Performing Lab: [address] [address] CREATININE 1.09 mg/dL 0.7-1.3 UREA NITROGEN 21.4 mg/dL 9.0-25.0 GLUCOSE 132 mg/dL H 72-99 SODIUM 140 meq/L 136-145 POTASSIUM 4.5 meq/L 3.5-5 CHLORIDE 106 meq/L 98-107 CARBON DIOXIDE 26 meq/L 22-31 CALCIUM 9.5 mg/dL 8.4-10.4 EGFR (CKD-EPI 2020) 70.3 >60 October 16, 2023 06:59 AM [facility] CBC BLOOD Specimen Type: BLOOD No comment entered. Ordering Provider: CYNTHIA CABRERA Report Released Date/Time: October 15, 2023 04:22 PM Reporting Lab: [address] [address] Performing Lab: [address] [address] WBC 4.4 10*3/uL 3.6-11.2 RBC 5.28 10*6/uL [...] 2.7 1.0-7.0 October 16, 2023 06:30 AM [facility] GLUCOSE,BLOOD-poct (STL) BLOOD Specimen Type: BLOOD Comment: Test Performed by: [id number] Meter #: [id number] Ordering Provider: DAVMED Report Released Date/Time: October 16, 2023 07:53 AM Reporting Lab: [address] [address] Performing Lab: [address] [address] GLUCOSE,BLOOD-poct (STL) 120 mg/dL H -October 15, 2023 08:59 PM [facility] GLUCOSE,BLOOD-poct (STL) BLOOD Specimen Type: BLOOD Comment: Test Performed by: [id number] Meter #: [id number] Ordering Provider: DAVMED Report Released Date/Time: October 15, 2023 10:00 PM Reporting Lab: [address] [address] Performing Lab: [address] [address] GLUCOSE,BLOOD-poct (STL) 155 mg/dL H -October 15, 2023 04:22 PM [facility] GLUCOSE,BLOOD-poct (STL) BLOOD Specimen Type: BLOOD Comment: Test Performed by: [id number] Meter #: [id number] Ordering Provider: TWOA,MED Report Released Date/Time: October 15, 2023 04:38 PM Reporting Lab: [facility] [address] [place] [address] Performing Lab: [address] [address] GLUCOSE,BLOOD-poct (STL) 89 mg/dL 72-October 15, 2023 12:01 PM [facility] GLUCOSE,BLOOD-poct (STL) BLOOD Specimen Type: BLOOD Comment: Test Performed by: [id number] Meter #: [id number] Ordering Provider: GRETCHEN FREIRE Report Released Date/Time: October 15, 2023 12:12 PM Reporting Lab: [address] [address] Performing Lab: [address] [address] GLUCOSE,BLOOD-poct (STL) 144 mg/dL H 72-October 15, 2023 06:25 AM [facility] COVID-19 SCREENING PANEL (STL-PB) NASOPHARYNX Speci [...] October 08, 2023 02:49 PM Reporting Lab: [address] [address] Performing Lab: [address] [address] COVID-19 (STL-PB) Not Detected Not Detec ajit October 15, 2023 06:20 AM [facility] GLUCOSE,BLOOD-poct (STL) BLOOD Specimen Type: BLOOD Comment: Test Performed by: [id number] Meter #: [id number] Ordering Provider: GRETCHEN FREIRE Report Released Date/Time: October 15, 2023 10:13 AM Reporting Lab: [facility] [address] [place] [address] Performing Lab: [address] [address] GLUCOSE,BLOOD-poct (STL) 130 mg/dL H 72-99 October 15, 2023 06:20 AM [facility] PT/INR NEW (STL-MA) PLASMA Specimen Type: PLAS MA No comment entered. Ordering Provider: GRETCHEN FREIRE Report Released Date/Time: October 08, 2023 02:49 PM Reporting Lab: [address] [address] Performing Lab: [address] [address] PROTIME 10.9 s 9.4-12.5 INR VALUE 1.0 {INR} October 15, 2023 06:20 AM [facility] BASIC METABOLIC PANEL PLASMA Specimen Type: PL ASMA Comment: No hemolysis noted. Ordering Provider: GRETCHEN FREIRE Report Released Date/Time: October 08, 2023 02:49 PM Reporting Lab: [address] [address] Performing Lab: [address] [address] CREATININE 1.10 mg/dL 0.7-1.3 UREA NITROGEN 25.9 mg/dL H 9.0-25.0 GLUCOSE 141 mg/dL H 72-99 SODIUM 139 meq/L 136-145 POTASSIUM 4.2 meq/L 3.5-5 CHLORIDE 106 meq/L 98-107 CARBON DIOXIDE 28 meq/L 22-31 CALCIUM 9.3 mg/dL 8.4-10.4 EGFR (CKD-EPI 2020) 69.6 >60 October 15, 2023 06:20 AM [facility] CBC BLOOD Specimen Type: BLOOD No comment entered. Ordering Provider: GRETCHEN FREIRE Report Released Date/Time: October 08, 2023 02:49 PM Reporting Lab: [facility] [address] [facility] [address] Performing Lab: [place] [address] [facility] [address] WBC 4.8 10*3/uL 3.6-11.2 RBC 5.45 10*6/uL [...] 2.8 1.0-7.0 October 15, 2023 12:00 AM [facility] MRSA SURVL NARES DNA NARES Specimen [...] October 15, 2023 04:06 PM Reporting Lab: [facility] [address] [facility] [address] Performing Lab: [facility] [address] [facility] [address] MRSA SURVL NARES DNA Negative Negative Social History: Smoking Status (Most current) and Tobacco Use (All prior to encounter date) This section includes the most current, and the historical, smoking and tobacco- related health factors from the [place] facility where the Encounter took place. Current Smoking Status This section includes the most current smoking, or tobacco-related health factor, from the [place] facility where the Encounter took place. Date/Time Current Smoking Status Comment Facil ity October 15, 2023 06:15 AM [facility] ADMIT TOBACCO SCREEN NO [facility] Tobacco Use History This section includes a history of the smoking, or tobacco-related health factors, that were collected on or before the date of the Encounter. The data comes from the [place] facility where the Encounter took place. Date/Time Smoking Status/Tobacco Use Comment F acility October 14, 2022 01:17 PM VA-TOBACCO NEVER USED [facility] Mar 13, 2022 05:25 PM [facility]YX ADMIT TOBACCO SCREEN NO [facility] Apr 20, 2019 11:02 AM VA-TOBACCO FORMER USER [facility] Apr 20, 2019 11:02 AM [place]-TOBACCO QUIT 15 YRS OR MORE [facility] Nov 19, 2015 09:23 AM LIFETIME NON-USER OF TOBACCO [facility] May 02, 2014 08:44 AM LIFETIME NON-USER OF TOBACCO [facility] Jun 15, 2013 04:36 PM LIFETIME NON-USER OF TOBACCO [facility] Jun 17, 2012 09:31 AM LIFETIME NON-USER OF TOBACCO [facility] Advance Directives: All historical and current Section Date Range: From patient's date of to the date document was created. This section includes ALL of a patient's completed or amended [place] Advance and Rescinded Directives. The entries below indicate that a directive exists for the patient, but an actual copy is not included with this document. The data comes from all [place] facilities. Date Advance Directives Provider Source Nov 19, 2015 ADVANCE DIRECTIVE DISCUSSION JENNIFER LONDONO [facility] Encounter Notes: All associated encounter notes This section contains the clinical notes associated to the Encounter. Date/Time Encounter Note(s) Provider Source Nov 05, 2023 12:01 PM NONVA NOTE: LOCAL TITLE: COMMUNITY CARE-REQUEST FOR SERVICE NOTE STL STANDARD TITLE: NONVA NOTE DATE OF NOTE: NOV 05, 2023@12:01 ENTRY DATE: NOV 05, 2023@12:01:11 AUTHOR: ANGELA ANTHONY EXP COSIGNER: URGENCY: STATUS: COMPLETED Request for Services (RFS) documentation has been sent for scanning to [facility] Consult: [facility] Consult No: Date sent to scanning: Oct A Request for Service (RFS) form [id number] has been received which includes the following: Care Requested: Skilled home healthcare following CABG ICD-10 Dx code: Z95.1 Date VA received request: Oct Date service required: Oct Requesting Community Provider Information: Name of Ordering Provider: [employer] Office: Address, [facility], State: [address] [place] [address] Alerting Cardiology. Rich /reed/ JOSE VIERA, RN REGISTERED NURSE Signed: 11/05/2023 12:06 Receipt Acknowledged By: 11/05/2023 16:20 /reed/ KERLINE HOANG DNP RN NURSE PRACTITIONER/CLINICAL NURSE SPECIALIST ANGELA ANTHONY [facility]
--- OUTSIDE RECORDS SUMMARY | 2024-09-23 11:32 | XMS_ITS | Encounter Summary ---
Author Name [facility] [place] [facility] [place] Address [address] [place] [address] Care Team Providers Care Cone Baker Machine Name Role Phone RAUL DEVIN Primary Care [...] PART A Jun 01, 2012 PART A [id number] SENA FUENTES VID PATIENT MEDICARE (WNR) MEDICARE (M) PART B Jun 01, 2012 PART B [id number] PILOMARYSEMAKENNA,SENA VID PATIENT MEDICARE (WNR) MEDICARE (M) PART A Jun 01, 2012 PART A [id number] ALFREDO,SENA VID PATIENT MEDICARE (WNR) MEDICARE (M) PART B Jun 01, 2012 PART B [id number] [phone] PILOMARYSESENA MENSAH VID PATIENT MEDICARE (WNR) MEDICARE (M) PART A Jun 01, 1999 PART A [id number] SENA FUENTES VID PATIENT Selected Encounter This section includes the information on record at [place] for the Encounter. 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 Plan of Treatment: Future Appointments (+ 6 months) and Future Tests (+/- 45 days) The Plan of Treatment section includes future care activities for the patient from all [place] treatmentfacilities. This section includes future appointments and future orders which are active, pending or scheduled. Future Appointments This section includes appointments that were scheduled to occur 6 months from the date of the Encounter, up to a maximum of 20 appointments. The data comes from all [place] treatment facilities. Appointment Date/Time Appointment Type Appointme nt Facility Name Dec 15, 2023 10:40 AM AMBULATORY - MEDICINE . [facility] Dec 24, 2023 09:45 AM [facility]ULATORY - SURGERY [facility] Jan 21, 2024 01:00 PM AMBULATORY - SURGERY [facility] Feb 08, 2024 07:25 AM AMBULATORY - MEDICINE . [facility] Apr 01, 2024 01:30 PM AMBULATORY - NONE [facility] Apr 04, 2024 11:30 AM AMBULATORY - SURGERY [facility] Apr 06, 2024 11:00 AM AMBULATORY - MEDICINE [facility] Apr 06, 2024 01:00 PM AMBULATORY - MEDICINE [facility] Apr 18, 2024 11:00 AM AMBULATORY - MEDICINE [facility] May 03, 2024 03:00 PM AMBULATORY - SURGERY [facility] May 11, 2024 10:00 AM AMBULATORY - MEDICINE [facility] May 11, 2024 11:00 AM AMBULATORY - MEDICINE [facility] May 19, 2024 01:00 PM AMBULATORY - MEDICINE [facility] Active, Pending, and Scheduled Orders This section includes a listing of several types of active, pending, and scheduled orders, including clinic medications orders, diagnostic test orders, procedure orders and consult orders; where the start date of the order is 45 days before the date of the Encounter or 45 days after the date of theEncounter. The data comes from all [place] treatment facilities. Test Date/Time Test Type Test Details Facility Name Dec 15, 2023 12:00 AM Laboratory - Chemi stry Order BASIC METABOLIC PANEL GREEN LI/HEP BLD/PLAS PLASMA [facility] Dec 15, 2023 12:00 AM Laboratory - Chemi stry Order MAGNESIUM GREEN LI/HEP BLD/PLAS PLASMA [facility] Lab Results: +/- 30 days of the encounter This section includes the Chemistry and Hematology Lab Results on record with [place] for the patient. Radiology Reports and Pathology Reports are provided separately, in subsequent sections. Lab Results This section contains the Chemistry/Hematology Results that were resulted 30 days before or 30 daysafter the date of the Encounter. 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 Uric ACID: 2.78 H Reference range<2.00 Ordering Provider: BUBBA SIMS Report Released Date/Time: Dec 15, 2023 11:05 AM Reporting Lab: [facility] [address] [facility] [address] Performing Lab: [facility] [address] [facility] [address] VOLUME 2.66 >2.00 OXALATE 45 H <45 CITRIC ACID 242 L >320 SULFATE,U-PB STL 17 <30 CREATININE URINE/OTHERS [phone] POTASSIUM URINE/OTHERS 53 19-135 SODIUM URINE/OTHERS 145 <200 CALCIUM URINE/OTHERS 116 <250.0 PHOSPHOROUS URINE/OTHERS 1224 H <1100 URIC ACID URINE/OTHERS 513 <700 MAGNESIUM URINE/OTHER 123 >60.0 .INTERP comment +BRUSHITE 0.10 <2.00 PH(SO) 5.1 L 5.5-7.0 +CALCIUM OXALATE 0.81 <2.00 +SODIUM-URATE 0.34 <2.00 Dec 09, 2023 10:53 AM [facility] PROTEIN.URINE(STL) URINE Specimen Type: URINE No comment entered. Ordering Provider: BUBBA SIMS Report Released Date/Time: Dec 02, 2023 03:33 PM Reporting Lab: [address] [address] Performing Lab: [address] [address] PROTEIN URINE 18.8 mg/dL Dec 09, 2023 10:53 AM [facility] MICRAL/CREAT PROFILE (STL) URINE Specimen Typ e: URINE No comment entered. Ordering Provider: BUBBA SIMS Report Released Date/Time: Dec 02, 2023 03:33 PM Reporting Lab: [address] [address] Performing Lab: [address] [address] URINE ALBUMIN (PB-STL) 58.8 mg/L uACR (STL) 44 mg/g H 0-29 CREATININE URINE/OTHERS 133.2 mg/dL 63-1 66 Dec 09, 2023 10:53 AM [facility] CBC BLOOD Specimen Type: BLOOD No comment entered. Ordering Provider: BUBBA SIMS Report Released Date/Time: Dec 02, 2023 03:33 PM Reporting Lab: [address] [address] Performing Lab: [facility] [address] [facility] [address] WBC 6.5 10*3/uL 3.6-11.2 RBC 4.60 10*6/uL [...] 0.00-0. 20 Nov 30, 2023 12:37 PM [facility] MAGNESIUM PLASMA Specimen Type: PLASM A Comment: No hemolysis noted. Ordering Provider: DIEGO CASE Report Released Date/Time: Nov 30, 2023 12:04 PM Reporting Lab: [address] [address] Performing Lab: [address] [address] MAGNESIUM 1.9 mg/dL 1.6-2.6 Nov 30, 2023 12:37 PM [facility] BASIC METABOLIC PANEL PLASMA Specimen Type: PL ASMA Comment: No hemolysis noted. Ordering Provider: DIEGO CASE Report Released Date/Time: Nov 30, 2023 12:04 PM Reporting Lab: [address] [address] Performing Lab: [address] [address] CREATININE 1.14 mg/dL 0.7-1.3 UREA NITROGEN 19.1 [...] and tobacco- related health factors from the [place] facility where the Encounter took place. Current Smoking Status This section includes the most current smoking, or tobacco-related health factor, from the [place] facility where the Encounter took place. Date/Time Current Smoking Status Comment Lux ity October 15, 2023 06:15 AM ORYX ADMIT TOBACCO SCREEN NO [facility] Tobacco Use History This section includes a history of the smoking, or tobacco-related health factors, that were collected on or before the date of the Encounter. The data comes from the [place] facility where the Encounter took place. Date/Time Smoking Status/Tobacco Use Comment F actoya October 14, 2022 01:17 PM VA-TOBACCO NEVER USED [facility] Mar 13, 2022 05:25 PM ORYX ADMIT TOBACCO SCREEN NO [facility] Apr 20, 2019 11:02 AM VA-TOBACCO FORMER USER [facility] Apr 20, 2019 11:02 AM VA-TOBACCO QUIT 15 YRS OR MORE [facility] Nov 19, 2015 09:23 AM LIFETIME NON-USER OF TOBACCO [facility] May 02, 2014 08:44 AM LIFETIME NON-USER OF TOBACCO [facility] Jun 15, 2013 04:36 PM LIFETIME NON-USER OF TOBACCO [facility] Jun 17, 2012 09:31 AM LIFETIME NON-USER OF TOBACCO [facility] Advance Directives: All historical and current Section Date Range: From patient's date of to the date document was created. This section includes ALL of a patient's completed or amended [place] Advance and Rescinded Directives. The entries below indicate that a directive exists for the patient, but an actual copy is not included with this document. The data comes from all [place] facilities. Date Advance Directives Provider Source Nov 19, 2015 ADVANCE DIRECTIVE DISCUSSION JENNIFER LONDONO [facility] Encounter Notes: All associated encounter notes This section contains the clinical notes associated to the Encounter. Date/Time Encounter Note(s) Provider Source Dec 11, 2023 08:46 AM CARDIOLOGY TELEPHO NE ENCOUNTER NOTE: LOCAL TITLE: CARDIOLOGY TELEPHONE NOTE ST STANDARD TITLE: CARDIOLOGY TELEPHONE ENCOUNTER NOTE DATE OF NOTE: DEC 11, 2023@08:46 ENTRY DATE: DEC 11, 2023@08:46:23 AUTHOR: DIEGO CASE EXP COSIGNER: URGENCY: STATUS: COMPLETED Reviewed BP log sent in by patient. I called to discuss. Patient stopped taking all medications 12/04/2023. He denies recurrent dizziness/LH or syncope. am pm 12/03 97/55 7/ 115/74, 89 96/64, 91 12/05 101/56, 94 12/07 131/74, 89 105/68, 90 12/08 125/76, 102 86/53, 83 12/09 127/82, 90 94/62, 96 Plan: - CTM symptoms and BP/HR - start metop XL 12.5mg daily - losartan delivered to patient today. do NOT start yet. will readd slowly as tolerated Time spent: 9 minutes /reed/ Diego Caes PA-C Cardiology Physician Site Supervising Technical Operator Signed: 12/11/2023 16:54 DIEGO CASE [facility]
--- OUTSIDE RECORDS SUMMARY | 2024-09-23 11:32 | XMS_ITS ---
Author Name [facility] [place] Organization [place] Address [address] [place] [address] Care Team Providers Care Speech Language Specialist Name Role Phone ARUL, DEVIN Primary Care Provider Unavailabl e Insurance [...] PART A Jun 01, 2012 PART A [id number] PF90 [phone] PILOMARYSEMAKENNA,SENA VID PATIENT MEDICARE (WNR) MEDICARE (M) PART B Jun 01, 2012 PART B [id number] PILOMARYSEEN,DA VID PATIENT MEDICARE (WNR) MEDICARE (M) PART A Jun 01, 2012 PART A [id number] PF90 [id number] PILOMARYSEEN,DA VID PATIENT MEDICARE (WNR) MEDICARE (M) PART B Jun 01, 2012 PART B [id number] GOCKEN,DA VID PATIENT MEDICARE (WNR) MEDICARE (M) PART A Jun 01, 1999 PART A [id number] PF90 SENA FUENTES PATIENT Selected Encounter This section includes the information on record at [place] for the Encounter. Date/Time Encounter Type Encounter Description Reason Provider Source May 19, 2024 01:00 PM OFF/OP EST SEPTEMBER X REQ PHY/QHP PRIMARY CARE/MEDICINE ICD-10-CM H61.23 Impacted cerumen, bilateral BENITES,SHERREL L IHE Encounter Template Text not used by [place] Assessments - Encounter Diagnoses This section includes the primary and secondary diagnoses documented for the Encounter. Date/Time Primary/Secondary Diagnosis Diagnosis Name Provider Source May 20, 2024 09:35 AM PRIMARY Impacted cerumen, bilateral BENITES,SHERREL L [facility] Plan of Treatment: Future Appointments (+ 6 months) and Future Tests (+/- 45 days) The Plan of Treatment section includes future care activities for the patient from all [place] treatmentfacilities. This section includes future appointments and future orders which are active, pending or scheduled. Future Appointments This section includes appointments that were scheduled to occur 6 months from the date of the Encounter, up to a maximum of 20 appointments. The data comes from all [place] treatment facilities. Appointment Date/Time Appointment Type Appointme nt Facility Name Jun 15, 2024 01:00 PM AMBULATORY - MEDICINE [facility] Sep 05, 2024 01:00 PM AMBULATORY - MEDICINE [facility] October 06, 2024 11:00 AM AMBULATORY - MEDICINE [facility] October 12, 2024 02:00 PM AMBULATORY - MEDICINE [facility] Lab Results: +/- 30 days of the encounter This section includes the Chemistry and Hematology Lab Results on record with [place] for the patient. Radiology Reports and Pathology Reports are provided separately, in subsequent sections. Lab Results This section contains the Chemistry/Hematology Results that were resulted 30 days before or 30 daysafter the date of the Encounter. Date/Time Source Result Type Result - Unit Interpretation Reference Range Specimen Type Comment Jun 15, 2024 04:11 PM [facility] OCCULT BLOOD FIT X1 SCREEN FECES Specimen Typ e: FECES No comment entered. Ordering Provider: DEVIN CARTER Report Released Date/Time: Apr 18, 2024 11:49 AM Reporting Lab: [facility] [address] [facility] [address] Performing Lab: [facility] [address] [facility] [address] OCCULT BLOOD (FIT) #1 OF 1 Negative Nega tive Social History: Smoking Status (Most current) and Tobacco Use (All prior to encounter date) This section includes the most current, and the historical, smoking and tobacco- related health factors from the [place] facility where the Encounter took place. Current Smoking Status This section includes the most current smoking, or tobacco-related health factor, from the [facility] where the Encounter took place. Date/Time Current Smoking Status Comment Facil ity Apr 18, 2024 11:00 AM MD-TOBACCO NEVER U SED CIGARETTES [facility] Tobacco Use History This section includes a history of the smoking, or tobacco-related health factors, that were collected on or before the date of the Encounter. The data comes from the [place] facility where the Encounter took place. Date/Time Smoking Status/Tobacco Use Comment F acility Apr 18, 2024 11:00 AM VA-TOBACCO NEVER U SED OTHER TYPE [facility] Nov 09, 2020 11:00 AM VA-TOBACCO NEVER USED [facility] October 22, 2017 03:06 PM VA-TOBACCO NEVER USED [facility] Mar 06, 2017 01:35 PM LIFETIME NON-USER OF TOBACCO [facility] Advance Directives: All historical and [...] 19, 2015 ADVANCE DIRECTIVE DISCUSSION JENNIFER LONDONO [facility] Radiology Reports: +/- 30 days of [...] the Encounter. The data comes from all [place] treatment facilities. Date/Time Radiology Report Provider Source May 11, 2024 09:46 AM NM MYOCARDIAL P SP ECT STRESS/REST-P: SKY FUENTES [id number] M Exm Date: MAY 11, 2024@09:46 Req Phys: DIEGO CASE Loc: -CARDIOLOGY MANPREET DELUCA (Req'g Img Loc: [facility] Service: Unknown [facility] [address] [place] [address] (Case [id number] COMPLETE) NM MYOCARDIAL PERF SPECT STRESS/R(NM Detailed) CPT:14099 Reason for Study: CHEST PAIN (Case 2400 COMPLETE) TC-99M TETROFOSMIN (MYOVIEW) (NM Detailed) CPT:A9502 (Case 2401 COMPLETE) TC-99M TETROFOSMIN (MYOVIEW), PE(NM Detailed) CPT:A9502 (Case 2402 COMPLETE) NON-HEU TC-99M ADD-ON PER STUDY D(NM Detailed) CPT:Q9969 (Case 2558 COMPLETE) REGADENOSON INJECTION (NM Detailed) CPT:J2785 Clinical History: CHEST PAIN Report Status: Verified Date Reported: MAY 11, 2024 Date Verified: MAY 11, 2024 Hide Worker E-Sig:/ES/NANCY JACKSON M.D. Report: PATIENT NAME: SKY FUENTES CASE #: [id number], [id number], [id number] EXAMINATION: Rest/Lexiscan Stress Gated SPECT Myocardial Imaging [...] concur with these findings. Primary Interpreting Staff: NNACY JACKSON M.D., STAFF PHYSICIAN - DIAGNOSTIC IMAGING (Hide Worker) Primary Interpreting Resident: CAROLYN SEXTON MD /NANCY Norris [facility] Encounter Notes: All associated encounter notes This section contains the clinical notes associated to the Encounter. Date/Time Encounter Note(s) Provider Source May 19, 2024 03:16 PM NURSING NOTE: LOCAL TITLE: V15 PACT FACE TO FACE NOTE [facility] STANDARD TITLE: NURSING NOTE DATE OF NOTE: MAY 19, 2024@15:16 ENTRY DATE: MAY 19, 2024@15:16:40 AUTHOR: MARTIN BENITES COSIGNER: URGENCY: STATUS: COMPLETED Nurse Visit: Patient Identifiers : Full Name Date of Reason for visit: ear lavage Mode of Arrival: Ambulatory Allergy Review: CIPROFLOXACIN, LISINOPRIL Allergy list reviewed and remains current. Procedures: Ear irrigation for cerumen impaction: Verified provider order for Ear Irrigation procedure due to Impacted Cerumen of the Bilateral Ears Patient was screened for the following contraindicated conditions prior to the procedure: history of a ruptured tympanic membrane, trauma of the auditory canal, surgery, presence of tubes, unilateral deafness, a current ear infection, an immunocompromised status, and diabetes (provider will determine if safe to perform procedure) Patient denied the presence of any of the above conditions Provider instructed to proceed with ear irrigation in this diabetic patient Recent Vital Signs: Measurement DT TEMP PULSE BP RESP F(C) 04/18/2024 11:02 97.9(36.6) 89 129/79 18 04/06/2024 11:02 98(36.7) 89 127/81 16 04/04/2024 11:37 97.4(36.3) 89 116/72 18 Appearance of canals prior to treatment: Right: large amount ofwhite particles Left: large amount of white particles Pretreatment: Yes Debrox Bilateral ears Length/Duration of pretreatment: 5 gtts both ears three times weekly Right ear: Patient tolerated procedure well Post Irrigation Canal Appearance: Clear, No irritations, No Abrasions Post Irrigation Tympanic Membrane Appearance: Intact, Pearly peralta, Cone of light reflected Left ear: Patient tolerated procedure well Post Irrigation Canal Appearance: Clear, Saxman, No irritations, No Abrasions Post Irrigation Tympanic Membrane Appearance: Intact, Pearly peralta, Cone of light reflected Follow-up instructions: none 's understanding verified by teach back: Yes /reed/ MARTIN BENITES LPN LICENSED PRACTICAL NURSE Signed: 05/19/2024 15:23 MARTIN BENITES [facility]
--- OUTSIDE RECORDS SUMMARY | 2024-09-23 11:32 | XMS_ITS | Encounter Summary ---
Author Name [facility] Organization [facility] [place] Address [address] [place] [address] Care Team Providers Care Bone Char Puller Name Role Phone RAUL, DEVIN Primary Care [...] PART A Jun 01, 2012 PART A [id number] PILOMARYSEMAKENNA,SENA VID PATIENT MEDICARE (WNR) MEDICARE (M) PART B Jun 01, 2012 PART B [id number] PILOMARYSEEN,DA VID PATIENT MEDICARE (WNR) MEDICARE (M) PART A Jun 01, 2012 PART A [id number] PILOMARYSEEN,DA VID PATIENT MEDICARE (WNR) MEDICARE (M) PART B Jun 01, 2012 PART B [id number] [phone] GOCKEN,DA VID PATIENT MEDICARE (WNR) MEDICARE (M) PART A Jun 01, 1999 PART A [id number] SENA FUENTES PATIENT Selected Encounter This section includes the information on record at [place] for the Encounter. Date/Time Encounter Type Encounter Description Reason Provider Source May 11, 2024 11:00 AM OFFICE O/P EST MOD 30 MIN CARDIAC STRESS TEST ICD-10-CM R07.89 Other chest pain INES SHAY Deng Encounter Template Text not used by [place] Assessments - Encounter Diagnoses This section includes the primary and secondary diagnoses documented for the Encounter. 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 This section includes future appointments and future orders which are active, pending or scheduled. Future Appointments This section includes appointments that were scheduled to occur 6 months from the date of the Encounter, up to a maximum of 20 appointments. The data comes from all [place] treatment facilities. Appointment Date/Time Appointment Type Appointme nt Facility Name May 19, 2024 01:00 PM AMBULATORY - MEDICINE [facility] Jun 15, 2024 01:00 PM AMBULATORY - MEDICINE [facility] Sep 05, 2024 01:00 PM AMBULATORY - MEDICINE [facility] October 06, 2024 11:00 AM AMBULATORY - MEDICINE [facility] October 12, 2024 02:00 PM AMBULATORY - MEDICINE [facility] Lab Results: +/- 30 days of the encounter This section includes the Chemistry and Hematology Lab Results on record with [place] for the patient. Radiology Reports and Pathology Reports are provided separately, in subsequent sections. Lab Results This section contains the Chemistry/Hematology Results that were resulted 30 days before or 30 daysafter the date of the Encounter. Date/Time Source Result Type Result - Unit Interpretation Reference Range Specimen Type Comment Apr 18, 2024 11:09 AM [facility] GLUCOSE,BLOOD-poct (STL) BLOOD Specimen Type: BLOOD Comment: Test Performed by: [id number] Meter #: [id number] Ordering Provider: DEVIN CARTER Report Released Date/Time: Apr 18, 2024 04:26 PM Reporting Lab: [address] [id number] Performing Lab: [address] [address] GLUCOSE,BLOOD-poct (STL) 125 mg/dL H 72-99 Social History: Smoking Status (Most current) and Tobacco Use (All prior to encounter date) This section includes the most current, and the historical, smoking and tobacco- related health factors from the [place] facility where the Encounter took place. Current Smoking Status This section includes the most current smoking, or tobacco-related health factor, from the [place] facility where the Encounter took place. Date/Time Current Smoking Status Comment Lux ity October 15, 2023 06:15 AM ORYX ADMIT TOBACCO SCREEN NO [facility] Tobacco Use History This section includes a history of the smoking, or tobacco-related health factors, that were collected on or before the date of the Encounter. The data comes from the [place] facility where the Encounter took place. Date/Time Smoking Status/Tobacco Use Comment F acility October 14, 2022 01:17 PM VA-TOBACCO NEVER USED [facility] Mar 13, 2022 05:25 PM ORYX ADMIT TOBACCO SCREEN NO [facility] Apr 20, 2019 11:02 AM VA-TOBACCO FORMER USER [facility] Apr 20, 2019 11:02 AM VA-TOBACCO QUIT 15 YRS OR MORE [facility] Nov 19, 2015 09:23 AM LIFETIME NON-USER OF TOBACCO [facility] May 02, 2014 08:44 AM LIFETIME NON-USER OF TOBACCO [facility] Jun 15, 2013 04:36 PM LIFETIME NON-USER OF TOBACCO [facility] Jun 17, 2012 09:31 AM LIFETIME NON-USER OF TOBACCO [facility] Advance Directives: All historical and current Section Date Range: From patient's date of to the date document was created. This section includes ALL of a patient's completed or amended [place] Advance and Rescinded Directives. The entries below indicate that a directive exists for the patient, but an actual copy is not included with this document. The data comes from all [place] facilities. Date Advance Directives Provider Source Nov 19, 2015 ADVANCE DIRECTIVE DISCUSSION JENNIFER LONDONO [facility] Radiology Reports: +/- 30 days of the [...] the Encounter. The data comes from all [place] treatment facilities. Date/Time Radiology Report Provider Source May 11, 2024 09:46 AM NM MYOCARDIAL P SP ECT STRESS/REST-P: SKY FUENTES [id number] M Exm Date: MAY 11, 2024@09:46 Req Phys: DIEGO DANIEL Loc: [facility] MAN[facility]ET DELUCA (Req'g Img Loc: [facility] Service: [address] [address] (Case [id number] COMPLETE) NM MYOCARDIAL PERF SPECT STRESS/R(NM Detailed) CPT:77595 Reason for Study: CHEST PAIN (Case 2400 COMPLETE) TC-99M TETROFOSMIN (MYOVIEW) (NM Detailed) CPT:A9502 (Case 2401 COMPLETE) TC-99M TETROFOSMIN (MYOVIEW), PE(NM Detailed) CPT:A9502 (Case 2402 COMPLETE) NON-HEU TC-99M ADD-ON PER STUDY D(NM Detailed) CPT:Q9969 (Case 2558 COMPLETE) REGADENOSON INJECTION (NM Detailed) CPT:J2785 Clinical History: CHEST PAIN Report Status: Verified Date Reported: MAY 11, 2024 Date Verified: MAY 11, 2024 Diagnostic Sales Specialist E-Sig:/ES/NANYC JACKSON M.D. Report: PATIENT NAME: SKY FUENTES CASE #: [id number], [id number] EXAMINATION: Rest/Lexiscan Stress Gated SPECT Myocardial Imaging [...] JACKSON M.D., STAFF PHYSICIAN - DIAGNOSTIC IMAGING (Diagnostic Sales Specialist) Primary Interpreting Resident: CAROLYN SEXTON MD /NANCY Norris [facility] Encounter Notes: All associated encounter notes This section contains the clinical notes associated to the Encounter. Date/Time Encounter Note(s) Provider Source May 12, 2024 01:20 AM ADDENDUM: LOCAL TITLE: Addendum STANDARD TITLE: ADDENDUM DATE OF NOTE: MAY 12, 2024@01:20:06 ENTRY DATE: MAY 12, 2024@01:20:07 AUTHOR: INES SHAY COSIGNER: URGENCY: STATUS: COMPLETED I saw the patient and participated in his clinical evaluation and management of the stress test procedure. I have reviewed the Building Dismantler, Dr. DUMONT's note in detail and, in general, I concur with his findings, interpretation and conclusions. Clinical decision making and recommendations were formulated by Dr. DUMONT and myself as outlined above. The results of the entire stress test (with the exception of Nuclear Medicine data) were discussed with the patient. The ECG findings during exercise, its usefulness, limitations, and implications for diagnostic assessment of CAD/myocardial ischemia were elaborated (in Layman's terms). The patient was also informed that a even a NON-ischemic ECG or other imaging stress tests do not exclude presence of coronary atherosclerosis, particularly non-obstructive CAD (in layman's terms). The patient was further advised that occasionally these mild stenoses (blockages) may develop erosion/crack/rupture resulting in coronary thrombosis and heart attack (ALL in layman's terms). The was advised that the results of Nuclear Medicine Images will become available later this afternoon and they will be forwarded to the patient's referring provider who will communicate with the [facility]. His questions and concerns were addressed. He acknowledged understanding of the issues and concerns discussed. The patient left the Stress Test Lab in stable condition with NO symptoms Thank you for your referral and allowing us to participate in care of your patient. 56 minutes were expended on this encounter. /es/ Ines Shay MD, FAC, FACP STAFF PHYSICIAN - Cardiology Signed: 05/12/2024 01:24 Receipt Acknowledged By: 05/13/2024 15:59 /es/ Diego Daniel PA-C Cardiology Physician [place] --- Original Document --- 05/11/24 CP EXERCISE STRESS TEST STL: STRESS TEST PROCEDURE NOTE Reason for consult: chest pain Referring provider: Diego Daniel Patient's chart reviewed. History taken from the patient. HISTORY OF PRESENT ILLNESS This is 78 year old male with a past medical history of HFrEF (TTE 11/2021 35-40%), H/o CHB s/p PPM 11/2012 s/p upgrade to LATHMAKER-D 03/2022, CAD s/p ESE x 2 to RCA in 09/2013. C 06/12/2020 showed severe LAD and moderate LCX/OM and RCA disease, s/p successful PCI of proximal and mid LAD s/p CABG x3 (ABBOTT->LAD, Left radial artery to OM and SVG to PDA) at [facility] with Dr. Bernstein on 10/21/2023. He also has hx of Type I diabetes since age 37 yrs, JARRED presents for stress test for CP. He reports he normally walks 3 miles a day for most days of the week. He reports exertional chest pain on brisk walks, He noticed it since 2 months while walking on the treadmill. He also reports assocaited hypotension with exercise. No dizziness/lh or syncope. No recent nitro use. Denies SOB, palpitations, FABIO, orthopnea, PND. Today he denies any chest pain, dyspnea on exertion, light headedness/dizziness with exertion, orthopnea, PND, or lower extremity edema. OTHER HISTORY FAMILY HISTORY: No premature coronary disease or sudden SOCIAL HISTORY: TOBACCO USE - No ALCOHOL USE - No COCAINE - No OTHER DRUGS - No PAST MEDICAL HISTORY 1) Kidney stone (SNOMED CT 83232731) 2) Mixed hyperlipidemia (SNOMED CT 258003176) 3) Permanent cardiac pacemaker (SNOMED CT [id number]) 4) Elevated Liver Function Tests 5) Benign [...] grafting 20) Impacted cerumen of bilateral ears CURRENT MEDICATIONS Active Outpatient Medications (including Supplies): Active Outpatient Medications Status 1) ATORVASTATIN CALCIUM 80MG TAB TAKE ONE TABLET BY ACTIVE MOUTH EVERY EVENING FOR [...] 10 DAYS TO MONITOR GLUCOSE READINGS 6) INSULIN,ASPART(EQV-NOVLG)10 0UN/ML FLXPEN INJECT 25 ACTIVE UNITS UNDER THE [...] A DAY FOR POSTOPERATIVE EYE PAIN 9) METOPROLOL SUCCINATE 25MG SA TAB TAKE ONE-HALF TABLET ACTIVE BY MOUTH ONCE A DAY FOR MYOCARDIAL INFARCTION SWALLOW WHOLE, DO NOT CRUSH OR CHEW (TABLETS MAY BE CUT IN HALF). 10) NEEDLE,PEN 31G,5MM USE 1 NEEDLE UNDER THE SKIN 5 ACTIVE TIMES A DAY FOR INJECTION ON INSULIN 11) ORACIT SOLN TAKE 15 ML BY MOUTH TWICE A DAY FOR ACTIVE PREVENTION OF KIDNEY STONES (MIX WITH 4 OUNCES OF WATER PRIOR TO DRINKING) 12) TAMSULOSIN HCL 0.4MG CAP TAKE ONE CAPSULE BY MOUTH ACTIVE (S) EVERY EVENING APPROXIMATELY 30 MINUTES AFTER THE [...] MORNING BEFORE A MEAL 16 Total Medications Allergy: CIPROFLOXACIN, LISINOPRIL REVIEW OF SYSTEMS Review of systems: All 14 systems reviewed are negative except for HPI. OBJECTIVE/DATA Temperature: 97.9 F [36.6 C] (04/18/2024 11:02) BP: 129/79 (04/18/2024 11:02) Pulse: 89 (04/18/2024 11:02) Resp: 18 (04/18/2024 11:02) Height: 70 in [177.8 cm] (04/18/2024 11:) Weight:191.4 lb [86.82 kg] (04/18/2024:) PHYSICAL EXAM General: No acute distress Heart: Regular rate and rhythm, normal/soft S1 S2, no murmurs, rubs or gallops Lungs: Clear to auscultation bilaterally, no crackles or wheezing Abdomen: soft Extremities: No edema Skin: No visible rashes Neurological/Psychiatric: Alert. Normal affect and mood. Grossly moving all 4 extremities DIAGNOSTIC DATA CBC WBC: 5.9 10*3/uL (02/08/24 08:28) RBC: 5.57 10*6/uL (02/08/24 08:28) HGB 15.5 g/dL 02/08/2024 08:28 HCT: 48.9 % H (02/08/24 08:28) PLT 142 L 10*3/uL 02/08/2024 08:28 Chem 7 GLUCOSE 127 H mg/dL 04/06/2024 11:43 BUN: 20.0 mg/dL (04/06/24 11:43) CREATININE 1.12 mg/dL 04/06/2024 11:43 SODIUM 141 mEq/L 04/06/2024 11:43 POTASSIUM 4.9 mEq/L 04/06/2024 11:43 CHLORIDE 106 mEq/L (04/06/24 11:43) CARBON DIOXIDE 23 mEq/L 04/06/2024 11:43 ASSESSMENT AND PLAN Pt with RF and no current angina equivalent. Baseline ECG is V-paced rhythm therefore it is not diagnostic. Will proceed with stress test. --------- Pharmacologic Stress Test PHARMACOLOGICAl AGENT: Regadenason RESULTS OF PHARMACOLOGIC STRESS ECG CHANGES DURING/AFTER PHARMACOLOGIC STRESS TEST: ECG non diagnostic due to paced rhythm DYSRHYTHMIAS: N/A BP RESPONSES Baseline BP: 158/83 BP during infusion: 170/82 MANIFESTATIONS OF MEDICATION ADMINISTRATION: Mild lightheadedness( with no hypotension). Reveresed by caffeine drink. recovery. REASON FOR STOPPING: Protocol Completed Reversal agent given: Y caffeine SUMMARY Imaging stress report to follow --------- CONCLUSIONS - ECG non diagnostic due to paced rhythm . - No clinical symptoms of chest pain or anginal equivalent. - Normal heart rate deceleration during recovery. - Nuclear imaging report to follow. - Patient was informed the significance of non-obstructive coronary stenoses/plaques,and the potential consequences of vulnerable atherosclerotic plaques prone to rupture, likely giving rise to coronary thrombotic occlusion and ACS/CA were elaborated. - Discussed watching for warning signs during physical activity such as chest pain, severe shortness of breath or severe exhaustion and to seek urgent medical attention if these occur. - Patient's questions and concerns addressed. /reed/ GRETCHEN DUMONT Building Dismantler Signed: 05/11/2024 11:22 /reed/ Ines Shay MD, FACC, FACP STAFF PHYSICIAN - Cardiology Cosigned: 05/12/2024 01:19 INES SHAY [facility] May 11, 2024 11:10 AM CARDIOLOGY PROCEDU RE NOTE: LOCAL TITLE: CARDIOLOGY PROCEDURE REPORT STL STANDARD TITLE: CARDIOLOGY PROCEDURE NOTE DATE OF NOTE: MAY 11, 2024@11:10 ENTRY DATE: MAY 11, 2024@11:10:32 AUTHOR: ORVILLE RODRIGUEZ EXP COSIGNER: URGENCY: STATUS: COMPLETED STRESS TEST PROCEDURE NOTE Patient brought into the stress lab and prepped for the stress test at 1050 Baseline ECG obtained and given to Dr Dumont for review Lexiscan injected by Dr. Dumont Aminophylline given : N Complications: NONE Stress ECG transferred to MUSE system: Y Stress ECG given to Dr. Dumont for review at the end of the test Patient discharged from stress lab in stable condition See note for further details. /reed/ ORVILLE RODRIGUEZ [facility] Stress Aerobics Teacher Signed: 05/11/2024 11:11 ORVILLE RODRIGUEZ [facility] May 11, 2024 10:50 AM CARDIOLOGY DIAGNOS TIC STUDY REPORT: LOCAL TITLE: CP EXERCISE STRESS TEST STL STANDARD TITLE: CARDIOLOGY DIAGNOSTIC STUDY REPORT DATE OF NOTE: MAY 11, 2024@10:50 ENTRY DATE: MAY 11, 2024@10:51:02 AUTHOR: GRETCHEN DUMONT EXP COSIGNER: INES SHAY URGENCY: STATUS: COMPLETED CP EXERCISE STRESS TEST STL Has ADDENDA STRESS TEST PROCEDURE NOTE Reason for consult: chest pain Referring provider: Diego Daniel Patient's chart reviewed. History taken from the patient. HISTORY OF PRESENT ILLNESS This is 78 year old male with a past medical history of HFrEF (TTE 11/2021 35-40%), H/o CHB s/p PPM 11/2012 s/p upgrade to LATHMAKER-D 03/2022, CAD s/p ESE x 2 to RCA in 09/2013. LHC 06/12/2020 showed severe LAD and moderate LCX/OM and RCA disease, s/p successful PCI of proximal and mid LAD s/p CABG x3 (ABBOTT->LAD, Left radial artery to OM and SVG to PDA) at [facility] with Dr. Bernstein on 10/21/2023. He also has hx of Type I diabetes since age 37 yrs, JARRED presents for stress test for CP. He reports he normally walks 3 miles a day for most days of the week. He reports exertional chest pain on brisk walks, He noticed it since 2 months while walking on the treadmill. He also reports assocaited hypotension with exercise. No dizziness/lh or syncope. No recent nitro use. Denies SOB, palpitations, FABIO, orthopnea, PND. Today he denies any chest pain, dyspnea on exertion, light headedness/dizziness with exertion, orthopnea, PND, or lower extremity edema. OTHER HISTORY FAMILY HISTORY: No premature coronary disease or sudden SOCIAL HISTORY: TOBACCO USE - No ALCOHOL USE - No COCAINE - No OTHER DRUGS - No PAST MEDICAL HISTORY 1) Kidney stone (SNOMED CT 16424586) 2) Mixed hyperlipidemia (SNOMED CT 290386841) 3) Permanent cardiac pacemaker (SNOMED CT [id number]) 4) Elevated Liver Function Tests 5) Benign [...] grafting 20) Impacted cerumen of bilateral ears CURRENT MEDICATIONS Active Outpatient Medications (including Supplies): Active Outpatient Medications Status 1) ATORVASTATIN CALCIUM 80MG TAB TAKE ONE TABLET BY ACTIVE MOUTH EVERY EVENING FOR [...] 10 DAYS TO MONITOR GLUCOSE READINGS 6) INSULIN,ASPART(EQV-NOVLG)10 0UN/ML FLXPEN INJECT 25 ACTIVE UNITS UNDER THE [...] A DAY FOR POSTOPERATIVE EYE PAIN 9) METOPROLOL SUCCINATE 25MG SA TAB TAKE ONE-HALF TABLET ACTIVE BY MOUTH ONCE A DAY FOR MYOCARDIAL INFARCTION SWALLOW WHOLE, DO NOT CRUSH OR CHEW (TABLETS MAY BE CUT IN HALF). 10) NEEDLE,PEN 31G,5MM USE 1 NEEDLE UNDER THE SKIN 5 ACTIVE TIMES A DAY FOR INJECTION ON INSULIN 11) ORACIT SOLN TAKE 15 ML BY MOUTH TWICE A DAY FOR ACTIVE PREVENTION OF KIDNEY STONES (MIX WITH 4 OUNCES OF WATER PRIOR TO DRINKING) 12) TAMSULOSIN HCL 0.4MG CAP TAKE ONE CAPSULE BY MOUTH ACTIVE (S) EVERY EVENING APPROXIMATELY 30 MINUTES AFTER THE [...] MORNING BEFORE A MEAL 16 Total Medications Allergy: CIPROFLOXACIN, LISINOPRIL REVIEW OF SYSTEMS Review of systems: All 14 systems reviewed are negative except for HPI. OBJECTIVE/DATA Temperature: 97.9 F [36.6 C] (04/18/2024 11:02) BP: 129/79 (04/18/2024 11:02) Pulse: 89 (04/18/2024 11:02) Resp: 18 (04/18/2024 11:02) Height: 70 in [177.8 cm] (04/18/2024 11:02) Weight:191.4 lb [86.82 kg] (04/18/2024 11:02) PHYSICAL EXAM General: No acute distress Heart: Regular rate and rhythm, normal/soft S1 S2, no murmurs, rubs or gallops Lungs: Clear to auscultation bilaterally, no crackles or wheezing Abdomen: soft Extremities: No edema Skin: No visible rashes Neurological/Psychiatric: Alert. Normal affect and mood. Grossly moving all 4 extremities DIAGNOSTIC DATA CBC WBC: 5.9 10*3/uL (02/08/24 08:28) RBC: 5.57 10*6/uL (02/08/24 08:28) HGB 15.5 g/dL 02/08/2024 08:28 HCT: 48.9 % H (02/08/24 08:28) PLT 142 L 10*3/uL 02/08/2024 08:28 Chem 7 GLUCOSE 127 H mg/dL 04/06/2024 11:43 BUN: 20.0 mg/dL (04/06/24 11:43) CREATININE 1.12 mg/dL 04/06/2024 11:43 SODIUM 141 mEq/L 04/06/2024 11:43 POTASSIUM 4.9 mEq/L 04/06/2024 11:43 CHLORIDE 106 mEq/L (04/06/24 11:43) CARBON DIOXIDE 23 mEq/L 04/06/2024 11:43 ASSESSMENT AND PLAN Pt with RF and no current angina equivalent. Baseline ECG is V-paced rhythm therefore it is not diagnostic. Will proceed with stress test. --------- Pharmacologic Stress Test PHARMACOLOGICAl AGENT: Regadenason RESULTS OF PHARMACOLOGIC STRESS ECG CHANGES DURING/AFTER PHARMACOLOGIC STRESS TEST: ECG non diagnostic due to paced rhythm DYSRHYTHMIAS: N/A BP RESPONSES Baseline BP: 158/83 BP during infusion: 170/82 MANIFESTATIONS OF MEDICATION ADMINISTRATION: Mild lightheadedness( with no hypotension). Reveresed by caffeine drink. recovery. REASON FOR STOPPING: Protocol Completed Reversal agent given: Y caffeine SUMMARY Imaging stress report to follow --------- CONCLUSIONS - ECG non diagnostic due to paced rhythm . - No clinical symptoms of chest pain or anginal equivalent. - Normal heart rate deceleration during recovery. - Nuclear imaging report to follow. - Patient was informed the significance of non-obstructive coronary stenoses/plaques,and the potential consequences of vulnerable atherosclerotic plaques prone to rupture, likely giving rise to coronary thrombotic occlusion and ACS/CA were elaborated. - Discussed watching for warning signs during physical activity such as chest pain, severe shortness of breath or severe exhaustion and to seek urgent medical attention if these occur. - Patient's questions and concerns addressed. /reed/ GRETCHEN DUMONT Building Dismantler Signed: 05/11/2024 11:22 /reed/ Ines Shay MD, FACC, FACP STAFF PHYSICIAN - Cardiology Cosigned: 05/12/2024 01:19 05/12/2024 ADDENDUM STATUS: COMPLETED I saw the patient and participated in his clinical evaluation and management of the stress test procedure. I have reviewed the Building Dismantler, Dr. DUMONT's note in detail and, in general, I concur with his findings, interpretation and conclusions. Clinical decision making and recommendations were formulated by Dr. DUMONT and myself as outlined above. The results of the entire stress test (with the exception of Nuclear Medicine data) were discussed with the patient. The ECG findings during exercise, its usefulness, limitations, and implications for diagnostic assessment of CAD/myocardial ischemia were elaborated (in Layman's terms). The patient was also informed that a even a NON-ischemic ECG or other imaging stress tests do not exclude presence of coronary atherosclerosis, particularly non-obstructive CAD (in layman's terms). The patient was further advised that occasionally these mild stenoses (blockages) may develop erosion/crack/rupture resulting in coronary thrombosis and heart attack (ALL in layman's terms). The [facility] was advised that the results of Nuclear Medicine Images will become available later this afternoon and they will be forwarded to the patient's referring provider who will communicate with the [place]. His questions and concerns were addressed. He acknowledged understanding of the issues and concerns discussed. The patient left the Stress Test Lab in stable condition with NO symptoms Thank you for your referral and allowing us to participate in care of your patient. 56 minutes were expended on this encounter. /reed/ Ines Shay MD, FACC, FACP STAFF PHYSICIAN - Cardiology Signed: 05/12/2024 01:24 Receipt Acknowledged By: * AWAITING SIGNATURE * DIEGO DANIEL [facility]
--- OUTSIDE RECORDS SUMMARY | 2024-09-23 11:32 | XMS_ITS | Encounter Summary ---
Author Name [facility] [place] [facility] Address [address] [place] [address] Care Team Providers Care Lost Charge Card Clerk Name Role Phone DEVIN CARTER Primary Care [...] PART A Jun 01, 2012 PART A [id number] SENA FUENTES VID PATIENT MEDICARE (WNR) MEDICARE (M) PART B Jun 01, 2012 PART B [id number] PILOMARYSEMAKENNA,SENA VID PATIENT MEDICARE (WNR) MEDICARE (M) PART A Jun 01, 2012 PART A [id number] ALFREDO,SENA VID PATIENT MEDICARE (WNR) MEDICARE (M) PART B Jun 01, 2012 PART B [id number] [phone] SENA FUENTES VID PATIENT MEDICARE (WNR) MEDICARE (M) PART A Jun 01, 1999 PART A [id number] SENA FUENTES PATIENT Selected Encounter This section includes the information on record at [place] for the Encounter. Date/Time Encounter Type Encounter Description Reason Pro vider Source [facility] Encounter Template Text not used by [place] Advance Directives: All historical and current Section Date Range: From patient's date of to the date document was created. This section includes ALL of a patient's completed or amended [place] Advance and Rescinded Directives. The entries below indicate that a directive exists for the patient, but an actual copy is not included with this document. The data comes from all [place] facilities. Date Advance Directives Provider Source Nov 19, 2015 ADVANCE DIRECTIVE DISCUSSION JENNIFER LONDONO [facility]
--- OUTSIDE RECORDS SUMMARY | 2024-09-23 11:32 | XMS_ITS | Continuity of Care Document ---
Author Name [facility] Organization [facility] Care Team Providers Care Photograph Developer Name Role Phone [facility] Unavailable Unavailable Problems Combined list of problems from Department of Defense and Veterans Affairs facilities. It does not include entries that were removed or entered in error. Problem Status Onset Date Problem Type Date of Resolution Comments Source Benign essential hypertension Active Condition [facility] Bilateral senile combined form cataracts of eyes Active Condition [facility] Closed extraarticular fracture of distal radius Active Condition [facility] Congestive heart failure Active Condition [facility] Coronary artery disease Active Condition [facility] Diabetes mellitus type 1 Active Condition [facility] Elevated Liver Function Tests Active Condition [facility] Elevated PSA Active Condition [facility] Exposure to potentially hazardous substance Active Condition [facility] History of coronary artery bypass grafting Active Condition [facility] Hyperlipidemia Active Condition [facility] Hypoglycaemia Active Condition [facility] Impacted cerumen of bilateral ears Active Condition [facility] Kidney stone (SNOMED CT 51581091) Active Condition Jun 17, 2012 Entered By: AIDEN SMITH Comment: h/o lithotripsy [facility] Lumbar radiculopathy Active Condition [facility] Mixed hyperlipidemia (SNOMED CT 886146488) Active Condition [facility] Neuropathy Active Condition [facility] Peripheral vascular disease Active Condition [facility] Permanent cardiac pacemaker (SNOMED CT 483780986336401) Active Condition [facility] Pneumonia Active Condition [facility] Benign hypertension (SNOMED CT 12676999) Inactive Condition 11/09/2020 [facility] Coronary arteriosclerosis (SNOMED CT 91798056) Inactive Condition 11/09/2020 Jun 17, 2012 Entered By: AIDEN SMTIH Comment: had stents placed in the circumflex artery 2003 [facility] Diabetes mellitus Inactive Condition 11/09/2020 [facility] Medical examinations/reports status Inactive Condition 11/09/2020 [facility] Type II diabetes mellitus uncontrolled Inactive Condition 11/09/2020 [facility] Unresolved Inactive Condition 11/09/2020 Jun 17, 2012 Entered By: AIDEN SMITH Comment: followed by nonVA urologist [facility] Unresolved Inactive Condition 11/09/2020 [facility] Diagnosis: ICD-10-CM I50.22 Chronic systolic (congestive) heart failure Active Diagnosis [facility] Diagnosis: ICD-10-CM I25.118 Athscl heart disease of [place] cor art w oth ang pctrs Active Diagnosis [facility] Diagnosis: ICD-10-CM E10.59 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 Active Diagnosis [facility] Diagnosis: ICD-10-CM Z23 Encounter for immunization Active Diagnosis [facility] Diagnosis: ICD-10-CM Z28.39 Other underimmunization status Active Diagnosis [facility] Diagnosis: ICD-10-CM I50.20 Unspecified systolic (congestive) heart failure Active Diagnosis [facility] Diagnosis: ICD-10-CM H61.23 Impacted cerumen, bilateral Active Diagnosis [facility] Diagnosis: ICD-10-CM R07.89 Other chest pain Active Diagnosis [facility] Diagnosis: ICD-10-CM E10.9 Type 1 diabetes mellitus without complications Active Diagnosis [facility] Diagnosis: ICD-10-CM I25.810 Atherosclerosis of CABG w/o angina pectoris Active Diagnosis [facility] Diagnosis: ICD-10-CM N20.0 Calculus of kidney Active Diagnosis [facility] Diagnosis: ICD-10-CM I95.89 Other hypotension Active Diagnosis [facility] Diagnosis: ICD-10-CM 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[place] coronary artery w/o ang pctrs Active Diagnosis [facility] Diagnosis: ICD-10-CM I10 Essential (primary) hypertension Active Diagnosis [facility] Diagnosis: ICD-10-CM H61.21 Impacted cerumen, right ear Active Diagnosis [facility] Diagnosis: ICD-10-CM N18.2 Chronic kidney disease, stage 2 (mild) Active Diagnosis [facility] Diagnosis: ICD-10-CM Z95.0 Presence of cardiac pacemaker Active Diagnosis [facility] Admit Reason: CORONARY ARTERY DISEASE Active Diagnosis [facility] Diagnosis: ICD-10-CM I49.01 Ventricular fibrillation Active Diagnosis [facility] Diagnosis: ICD-10-CM R35.0 Frequency of micturition Active Diagnosis [facility] Diagnosis: ICD-10-CM E11.8 Type 2 diabetes mellitus with unspecified complications Active Diagnosis [facility] Diagnosis: ICD-10-CM Z96.1 Presence of intraocular lens Active Diagnosis [facility] Diagnosis: ICD-10-CM Z98.42 Cataract extraction status, left eye Active Diagnosis [facility] Diagnosis: ICD-10-CM Z01.818 Encounter for other preprocedural examination Active Diagnosis [facility] Diagnosis: ICD-10-CM Z98.41 Cataract extraction status, right eye Active Diagnosis [facility] Diagnosis: ICD-10-CM M54.59 Other low back pain Active Diagnosis [facility] Medications Combined list of outpatient medications from Department of Defense and [facility] facilities.Medications provided include 1) outpatient medications from the last 15 months, and 2) patient-reported medications. Medication Details Route Status Patient Instructions Prescription Expires Prescription Number Last Dispense Date Ordering Provider Order Date Order Qty Source ASPIRIN 81MG TAB,EC TAKE ONE TABLET BY MOUTH ONCE A DAY TAKE WITH FOOD. ORAL DISCONT INUED BY PROVIDE R 11/16/2024 [id number] ALEXI CARTER 2023 120 [facility] ASPIRIN 81MG TAB,EC TAKE ONE TABLET BY MOUTH ONCE A DAY ORAL ACTIVE ALEXI CARTER MARC N 2023 [facility] ATORVASTATI N CA 40MG TAB TAKE ONE-HALF TABLET BY MOUTH EVERY EVENING FOR CHOLESTE ROL. REPORT ANY UNEXPLAI LUCI MUSCLE PAIN/WEA KNESS TO PROVIDER . ORAL DISCONT INUED (EDIT) 06/03/2024 [id number] 4 PHYLLIS CASE 2023 45 [facility] ATORVASTATI N CA 80MG TAB TAKE ONE TABLET BY MOUTH EVERY EVENING FOR CHOLESTE ROL. REPORT ANY UNEXPLAI LUCI MUSCLE PAIN/WEA KNESS TO PROVIDER . ORAL ACTIVE 04/19/2025 [id number] 5 RAUL,SU MARC N 2023 90 [facility] ATORVASTATI N CA 80MG TAB TAKE ONE-HALF TABLET BY MOUTH EVERY EVENING FOR CHOLESTE ROL. REPORT ANY UNEXPLAI LUCI MUSCLE PAIN/WEA KNESS TO PROVIDER . ORAL DISCONT INUED (EDIT) 12/24/2024 [id number] 4 Jose De Jesus HORTON 2023 45 [facility] CARBAMIDE PEROXIDE 6.5%/GLYCER IN SOLN,OTIC INSTILL 5 DROPS IN BOTH EARS THREE TIMES PER WEEK FOR EAR WAX BLOCKAGE AURICU LAR (OTIC) 07/17/2024 [id number] 4 RAULALEXI N 2023 15 [facility] CHOLECALCIF CASSIDY 50MCG (2,000UNIT) TAB TAKE ONE TABLET BY MOUTH ONCE A DAY ORAL DISCONT INUED BY PROVIDE R 11/16/2024 [id number] 4 ALEXI CARTER N 2023 100 [facility] CHOLECALCIF CASSIDY 50MCG (2,000UNIT) TAB TAKE ONE TABLET BY MOUTH ONCE A DAY ORAL ACTIVE ALEXI CARTER N 2023 [facility] CITALOPRAM HYDROBROMID E 40MG TAB TAKE ONE-HALF TABLET BY MOUTH EVERY MORNING ORAL DISCONT INUED BY PROVIDE R 11/16/2024 [id number] 4 ALEXI CARTER N 2023 45 [facility] CITALOPRAM HYDROBROMID E 40MG TAB TAKE ONE-HALF TABLET BY MOUTH EVERY MORNING ORAL ACTIVE ALEXI CARTER N 2023 [facility] CITRIC ACID 640MG/SODIU M CITRATE 490MG/5ML SOLN,ORAL TAKE 15 ML BY MOUTH TWICE A DAY FOR PREVENTI ON OF KIDNEY STONES (MIX WITH 4 OUNCES OF WATER PRIOR TO DRINKING ) ORAL ACTIVE 01/24/2025 [id number] 5 BETHANY BUBBA S 2023 500 [facility] DOCUSATE NA 100MG CAP TAKE ONE CAPSULE BY MOUTH TWICE A DAY HOLD FOR LOOSE STOOL/DI ARRHEA. ORAL DISCONT INUED BY PROVIDE R 11/16/2024 [id number] 4 ALEXI CARTER N 2023 200 [facility] FUROSEMIDE 40MG TAB TAKE ONE TABLET BY MOUTH EVERY MORNING ORAL DISCONT INUED BY PROVIDE R 11/16/2024 [id number] 4 ALEXI CARTER MARC N 2023 90 [facility] GABAPENTIN 300MG CAP TAKE ONE CAPSULE BY MOUTH THREE TIMES A DAY FOR PAIN ORAL ACTIVE 11/22/2024 [id number] 5 ALEXI CARTER MARC N 2023 270 [facility] GABAPENTIN 300MG CAP TAKE ONE CAPSULE BY MOUTH THREE TIMES A DAY FOR PAIN ORAL DISCONT INUED 02/04/2024 [id number] 4 ALEXI CARTER MARC N 2022 270 [facility] GLUCAGON 1MG/KAROLYN INJ,EMERGEN CY KIT INJECT 1MG/1VIA L INTRAMUS CULARLY NEEDED PLEASE USE FOR EMERGENT LOW BLOOD GLUCOSE THAT DOES NOT RESPOND TO ORAL GLUCOSE PLEASE USE FOR EMERGENT LOW BLOOD GLUCOSE THAT DOES NOT RESPOND TO ORAL GLUCOSE INTRAM USCULA R 08/27/2024 [id number] 4 RADHA [address]D [address] [facility] INSULIN,ASP ART,HUMAN (EQV-NOVOLO G) 100 UNIT/ML,FLE XPEN,3ML INJECT 25 UNITS UNDER THE SKIN THREE TIMES A DAY BEFORE MEALS FOR DIABETES ADMINIST ER 10 MINUTES BEFORE FOOD DIRECTED . REFRIGER ATE UN-OPENE D PENS. DISCARD CARTRIDG E 28 DAYS AFTER OPENING. USES UP TO 100 UNITS THROUGHO UT THE DAY SUBCUT ANEOUS ACTIVE 04/07/2025 [id number] 5 RADHA FLOYD 2023 30 [facility] INSULIN,ASP ART,HUMAN 100 UNT/ML INJ INJECT 25 UNITS UNDER THE SKIN THREE TIMES A DAY BEFORE MEALS - (DISCARD ANY UNUSED PORTION 28 DAYS AFTER OPENING) USE SLIDING SCALE DIRECTED BY DIABETES PHYSICIA N. *MAX OF 100 UNITS PER DAY* SUBCUT ANEOUS DISCONT INUED BY LUIS Pete 06/04/2024 [id number] 4 JOVITA AVINA 2023 10 [facility] INSULIN,GLA RGINE,HUMAN 100 UNIT/ML INJ,SOLOSTA R,3ML INJECT 46 UNITS UNDER THE SKIN ONCE A DAY FOR DIABETES ADMINIST ER AT SAME TIME EACH DAY DIRECTED . DISCARD ANY OPEN CARTRIDG E AFTER 28 DAYS. SUBCUT ANEOUS ACTIVE 04/07/2025 [id number] 5 RADHA FLOYD 2023 15 [facility] INSULIN,GLA RGINE-YFGN 100UNIT/ML INJ INJECT 46 UNITS UNDER THE SKIN ONCE A DAY (AT SAME TIME EACH DAY) - (DISCARD ANY UNUSED PORTION 28 DAYS AFTER OPENING) SUBCUT ANEOUS DISCONT INUED BY LUIS R 11/16/2024 [id number] 4 ALEXI CARTER 2023 4 [facility] INSULIN,GLA RGINE-YFGN 100UNIT/ML INJ INJECT 45 UNITS UNDER THE SKIN ONCE A DAY FOR DIABETES (AT SAME TIME EACH DAY) - (DISCARD ANY UNUSED PORTION 28 DAYS AFTER OPENING) SUBCUT ANEOUS DISCONT INUED (EDIT) 12/05/2023 [id number] 4 Jose De Jesus HOLMAN 2022 4 [facility] ISOSORBIDE MONONITRATE 120MG TAB,SA TAKE ONE TABLET BY MOUTH ONCE A DAY TO PREVENT CHEST PAIN. TAKE ON EMPTY STOMACH. SWALLOW WHOLE. DO NOT CRUSH OR CHEW. ORAL DISCONT INUED BY PROVIDE R 06/03/2024 [id number] 4 CASE,[facility] 2023 90 [facility] ISOSORBIDE MONONITRATE 30MG TAB,SA TAKE ONE TABLET BY MOUTH ONCE A DAY FOR CHEST PAIN TAKE ON EMPTY STOMACH. SWALLOW WHOLE. DO NOT CRUSH OR CHEW. ORAL ACTIVE 05/14/2025 [id number] 5 CASE,[facility] 2023 90 [facility] LOSARTAN 25MG TAB TAKE ONE-HALF TABLET BY MOUTH ONCE A DAY FOR HIGH BLOOD PRESSURE ORAL DISCONT INUED BY PROVIDE R 12/04/2024 [id number] 4 Jose De Jesus HORTON 2023 45 [facility] METOPROLOL SUCCINATE 100MG TAB,SA TAKE ONE-HALF TABLET BY MOUTH ONCE A DAY SWALLOW WHOLE, DO NOT CRUSH OR CHEW (TABLETS MAY BE CUT IN HALF). ORAL DISCONT INUED (EDIT) 12/01/2024 [id number] 4 CASE,[facility] 2023 45 [facility] METOPROLOL SUCCINATE 100MG TAB,SA TAKE ONE-HALF TABLET BY MOUTH TWICE A DAY FOR HEART/BL OOD PRESSURE . SWALLOW WHOLE, DO NOT CRUSH OR CHEW (TABLETS MAY BE CUT IN HALF). ORAL DISCONT INUED BY PROVIDE R 06/03/2024 [id number] 4 CASE,[facility] 2023 90 [facility] METOPROLOL SUCCINATE 25MG TAB,SA TAKE ONE-HALF TABLET BY MOUTH ONCE A DAY FOR MYOCARDI AL INFARCTI ON SWALLOW WHOLE, DO NOT CRUSH OR CHEW (TABLETS MAY BE CUT IN HALF). ORAL ACTIVE 01/04/2025 [id number] 5 ALEXI CARTER N 2023 45 [facility] METOPROLOL SUCCINATE 25MG TAB,SA TAKE ONE-HALF TABLET BY MOUTH ONCE A DAY FOR MYOCARDI AL INFARCTI ON SWALLOW WHOLE, DO NOT CRUSH OR CHEW (TABLETS MAY BE CUT IN HALF). ORAL DISCONT INUED 01/04/2025 [id number] 4 ALEXI CARTER N 2023 45 [facility] METOPROLOL SUCCINATE 25MG TAB,SA TAKE ONE-HALF TABLET BY MOUTH ONCE A DAY FOR MYOCARDI AL INFARCTI ON SWALLOW WHOLE, DO NOT CRUSH OR CHEW (TABLETS MAY BE CUT IN HALF). ORAL DISCONT INUED 12/11/2024 [id number] PHYLLIS CASE 2023 45 [facility] METOPROLOL SUCCINATE 50MG TAB,SA TAKE ONE-HALF TABLET BY MOUTH ONCE A DAY FOR MYOCARDI AL INFARCTI ON SWALLOW WHOLE, DO NOT CRUSH OR CHEW (TABLETS MAY BE CUT IN HALF). ORAL DISCONT INUED (EDIT) 12/04/2024 [id number] 4 Jose De Jesus HORTON 2023 45 [facility] METOPROLOL SUCCINATE 50MG TAB,SA TAKE ONE-HALF TABLET BY MOUTH ONCE A DAY SWALLOW WHOLE, DO NOT CRUSH OR CHEW (TABLETS MAY BE CUT IN HALF). ORAL DISCONT INUED (EDIT) 11/16/2024 [id number] 4 ALEXI CARTERA N 2023 45 [facility] NITROGLYCER IN 0.4MG TAB,SUBLING UAL DISSOLVE ONE TABLET UNDER THE TONGUE ONE-TIME NEEDED FOR CHEST PAIN; IF NO IMPROVEM ENT AFTER FIRST DOSE CALL 9-1-1. MAY TAKE 2 ADDITION AL DOSES, 5 MINUTES APART SUBLIN GUAL 11/26/2023 [id number] PHYLLIS CASE 2022 100 [facility] PANTOPRAZOL E NA 40MG TAB,EC TAKE ONE TABLET BY MOUTH EVERY MORNING BEFORE A MEAL TAKE 30 MINUTES BEFORE MEAL(S) ORAL DISCONT INUED BY PROVIDE R 11/16/2024 [id number] 4 ALEXI CARTER MARC N 2023 90 [facility] PANTOPRAZOL E NA 40MG TAB,EC TAKE ONE TABLET BY MOUTH EVERY MORNING BEFORE A MEAL ORAL ACTIVE ALEXI CARTER MARC N 2023 [facility] POLYETHYLEN E GLYCOL 3350 PWDR,ORAL MIX AND DRINK 1 CAPFUL BY MOUTH ONCE A DAY (MEASURE WITH CAP AND MIX IN 8 OZ OF WATER) ORAL DISCONT INUED BY PROVIDE R 11/16/2024 [id number] 4 ALEXI CARTER MARC N 2023 1530 [facility] POTASSIUM CHLORIDE 20MEQ TAB,SA (DISPERSIBL E) TAKE ONE-HALF TABLET BY MOUTH ONCE A DAY TAKE WITH FOOD WHILE ON FUROSEMI DE ORAL DISCONT INUED BY PROVIDE R 11/16/2024 [id number] 4 RAULTRUONG MARC Dela Cruz 2023 45 [facility] SACUBITRIL 49MG/VALSAR MORRISON 51MG TAB TAKE ONE-HALF TABLET BY MOUTH TWICE A DAY FOR HEART FAILURE ORAL DISCONT INUED BY PROVIDE R 12/01/2024 [id number] 4 PHYLLIS CASE 2023 90 [facility] SENNOSIDES 8.6MG TAB TAKE ONE TABLET BY MOUTH ONCE A DAY NEEDED ORAL DISCONT INUED BY PROVIDE R 11/16/2024 [id number] 4 RAUL,SU MARC N 2023 100 [facility] TAMSULOSIN HCL 0.4MG CAP TAKE ONE CAPSULE BY MOUTH EVERY EVENING APPROXIM ATELY 30 MINUTES AFTER THE SAME MEAL EACH DAY ORAL ACTIVE 04/19/2025 [id number] 5 ALEXI CARTER MARC N 2024 90 [facility] TAMSULOSIN HCL 0.4MG CAP TAKE ONE CAPSULE BY MOUTH EVERY EVENING APPROXIM ATELY 30 MINUTES AFTER THE SAME MEAL EACH DAY ORAL DISCONT INUED 08/28/2024 [id number] [place] NICHOLS BROCK S 2023 90 [facility] Allergies, Adverse Reactions, Alerts Combined list of allergies from Department of Defense and Veterans Affairs facilities. It does not include entries that were removed or entered in error. Substance Category Reaction Severity Reaction type Status Date Reported Comments Source CIPROFLOXACI N Propensity to adverse reactions to drug (finding) Muscle pain active 3 [facility] LEVAQUIN Propensity to adverse reactions to drug (finding) active 2 [facility] LISINOPRIL Propensity to adverse reactions to drug (finding) Hyperkalemi a MODERATE active 9 [facility] Immunizations Combined list of available immunizations from the Department of Defense and Veterans Affairs facilities. Immunization Series Date Given Administered By Site Reaction Lot Number CVX Code Drug Salt Cutter Status Comments Source COVID-19 (PFIZER), MRNA, LNP-S, PF, GAMAL-SUCROSE, 30 MCG/0.3 ML (AGES 12+ YEARS) 1 2024 ANGELA BRUNO RIGHT DELTO ID [id number] 309 complet ed [facility] PNEUMOCOCCAL CONJUGATE PCV20, POLYSACCHARID E [id number] CONJUGATE, ADJUVANT, PF 2024 ANGELA BRUNO LEFT DELTO ID [id number] 216 complet ed [facility] RSV, BIVALENT, PROTEIN SUBUNIT RSVPREF, DILUENT RECONSTITUTED , 0.5 ML, PF 2023 SHERIF BENITES L RIGHT DELTO ID [id number] 305 complet ed [facility] COVID-19 (Curious Sense), MRNA, LNP-S, PF, GAMAL-SUCROSE, 30 MCG/0.3 ML (AGES 12+ YEARS) 1 2022 NAT SHAFFER LEFT DELTO ID [id number] 309 complet ed [facility] N INFLUENZA, HIGH-DOSE, QUADRIVALENT 2022 NAT SHAFFER LEFT DELTO ID [id number] A 197 complet ed Completed Series, [facility] N COVID-19, MRNA, LNP-S, BIVALENT BOOSTER, PF, 30 MCG/0.3 ML DOSE 1 2021 300 complet ed PFR; [id number]; 3 [facility] INFLUENZA VACCINE, QUADRIVALENT, ADJUVANTED 2021 205 complet ed [facility] COVID-19 (PFIZER), MRNA, LNP-S, PF, 30 MCG/0.3 ML DOSE 3 2020 208 complet ed PFR; [id number]; 2 [facility] INFLUENZA, UNSPECIFIED FORMULATION 2020 88 complet ed [facility] ZOSTER RECOMBINANT 2 2020 187 complet ed [facility] ZOSTER RECOMBINANT 1 2020 187 complet ed [facility] COVID-19 (PFIZER), MRNA, LNP-S, PF, 30 MCG/0.3 ML DOSE 2 2020 208 complet ed PFR; [id number]; 1 [facility] COVID-19 (PFIZER), MRNA, LNP-S, PF, 30 MCG/0.3 ML DOSE 1 2020 208 complet ed PFR; [id number]; 1 [facility] INFLUENZA, UNSPECIFIED FORMULATION 2019 88 complet ed [facility] INFLUENZA, UNSPECIFIED FORMULATION 2018 88 complet ed [facility] N INFLUENZA, UNSPECIFIED FORMULATION 2017 88 complet ed [facility] INFLUENZA, INJECTABLE, QUADRIVALENT, PRESERVATIVE FREE 2016 150 complet ed [facility] TDAP 2016 115 complet ed Left Deltoid [facility] INFLUENZA, UNSPECIFIED FORMULATION 2015 88 complet ed [facility] INFLUENZA, UNSPECIFIED FORMULATION 2014 88 complet ed [facility] PNEUMOCOCCAL CONJUGATE PCV 13 2014 133 complet ed vet will mail [facility] INFLUENZA, UNSPECIFIED FORMULATION 2013 88 complet ed [facility] INFLUENZA, UNSPECIFIED FORMULATION 2012 88 complet ed [facility] PNEUMOCOCCAL POLYSACCHARID E PPV23 2012 33 complet ed vet will mail [facility] PNEUMOCOCCAL, UNSPECIFIED FORMULATION 2012 109 complet ed [facility] TDAP 2006 115 complet ed [facility] Results Combined list of recent chemistry, hematology and other laboratory results from Department of Defense and Veterans Affairs, ranging from 15 months to all on record, depending upon the facility. Order Name Results Value Reference Range Date Interpretation Specimen Comments Source OCCULT BLOOD FIT X1 SCREEN HEMOGLOBIN .GASTROINT ESTINAL.LO WER [PRESENCE] IN STOOL BY IMMUNOASSA Y Negative 06/15 Specimen Type: FECES No comment entered. Ordering Provider: DARCIE CARTER Report Released Date/Time: Apr 18, 2024 11:49 AM Reporting Lab: [address] [address] Performing Lab: [address] [address] [facility] GLUCOSE, BLOOD-po ct (STL) GLUCOSE [MASS/VOLU ME] IN BLOOD BY AUTOMATED TEST STRIP 125 mg/dL 72 - 99 04/18 H Specimen Type: BLOOD Comment: Test Performed by: [id number] Meter #: [id number] Ordering Provider: DARCIE CARTER Report Released Date/Time: Apr 18, 2024 04:26 PM Reporting Lab: [address] [address] Performing Lab: [address] [address] [facility] MICRAL/C REAT PROFILE (STL) ALBUMIN [MASS/VOLU ME] IN URINE 206.9 mg/L 04/06 Specimen Type: URINE No comment entered. Ordering Provider: DARCIE CARTER Report Released Date/Time: Jan 04, 2024 04:29 PM Reporting Lab: [address] [address] Performing Lab: [facility] [address] [facility] [address] [facility] MICRAL/C REAT PROFILE (STL) ALBUMIN/CR EATININE [MASS RATIO] IN URINE 90 mg/g 0 - 29 04/06 H Specimen Type: URINE No comment entered. Ordering Provider: DARCIE CARTER Report Released Date/Time: Jan 04, 2024 04:29 PM Reporting Lab: [facility] [address] [facility] [address] Performing Lab: [address] [address] [facility] MICRAL/C REAT PROFILE (STL) CREATININE [MASS/VOLU ME] IN URINE 229.9 mg/dL 63 - 166 04/06 H Specimen Type: URINE No comment entered. Ordering Provider: DARCIE CARTER Report Released Date/Time: Jan 04, 2024 04:29 PM Reporting Lab: [address] [address] Performing Lab: [address] [address] [facility] HGA1C HEMOGLOBIN A1C/HEMOGL OBIN.TOTAL IN BLOOD 6.7 4.0 - 6.0 04/06 H Specimen Type: BLOOD No comment entered. Ordering Provider: DARCIE CARTER Report Released Date/Time: Jan 04, 2024 04:29 PM Reporting Lab: [facility] [address] [place] [phone] Performing Lab: [address] [address] [facility] LIPID PANEL (STL) CHOLESTERO L [MASS/VOLU ME] IN SERUM OR PLASMA 145 mg/dL 0 - 200 04/06 Specimen Type: PLASMA Comment: No hemolysis noted. Ordering Provider: DARCIE CARTER Report Released Date/Time: Jan 04, 2024 04:29 PM Reporting Lab: [address] [place] [address] Performing Lab: [facility] [address] [place] [address] [facility] LIPID PANEL (STL) TRIGLYCERI DE [MASS/VOLU ME] IN SERUM OR PLASMA 101 mg/dL 0 - 150 04/06 Specimen Type: PLASMA Comment: No hemolysis noted. Ordering Provider: DARCIE CARTER Report Released Date/Time: Jan 04, 2024 04:29 PM Reporting Lab: [facility] [address] [place] [address] Performing Lab: [address] [address] [facility] LIPID PANEL (STL) CHOLESTERO L IN LDL [MASS/VOLU ME] IN SERUM OR PLASMA BY CALCULATIO N 84 mg/dL 04/06 Specimen Type: PLASMA Comment: No hemolysis noted. Ordering Provider: DARCIE CARTER Report Released Date/Time: Jan 04, 2024 04:29 PM Reporting Lab: [facility] [address] [place] [address] Performing Lab: [address] [address] [facility] LIPID PANEL (STL) CHOLESTERO L IN HDL [MASS/VOLU ME] IN SERUM OR PLASMA 41 mg/dL 40 04/06 Specimen Type: PLASMA Comment: No hemolysis noted. Ordering Provider: DARCIE CARTER Report Released Date/Time: Jan 04, 2024 04:29 PM Reporting Lab: [facility] [address] [place] [phone] Performing Lab: [facility] [address] [place] [phone] [facility] COMPREHE NSIVE METABOLI C PANEL CREATININE [MASS/VOLU ME] IN SERUM OR PLASMA 1.12 mg/dL 0.7 - 1.3 04/06 Specimen Type: PLASMA Comment: No hemolysis noted. Ordering Provider: DARCIE CARTER Report Released Date/Time: Jan 04, 2024 04:29 PM Reporting Lab: [facility] [address] [facility] [address] Performing Lab: [facility] [address] [facility] [id number] [facility] COMPREHE NSIVE METABOLI C PANEL UREA NITROGEN [MASS/VOLU ME] IN SERUM OR PLASMA 20.0 mg/dL 9.0 - 25.0 04/06 Specimen Type: PLASMA Comment: No hemolysis noted. Ordering Provider: DARCIE CARTER Report Released Date/Time: Jan 04, 2024 04:29 PM Reporting Lab: [facility] [address] [place] [id number] Performing Lab: [facility] [address] [place] [phone] [place] [address] COMPREHE NSIVE METABOLI C PANEL GLUCOSE [MASS/VOLU ME] IN SERUM OR PLASMA 127 mg/dL 72 - 99 04/06 H Specimen Type: PLASMA Comment: No hemolysis noted. Ordering Provider: DARCIE CARTER Report Released Date/Time: Jan 04, 2024 04:29 PM Reporting Lab: [facility] [address] [place] [phone] Performing Lab: [facility] [address] [place] [phone] [facility] COMPREHE NSIVE METABOLI C PANEL SODIUM [MOLES/VOL UME] IN SERUM OR PLASMA 141 meq/L 136 - 145 04/06 Specimen Type: PLASMA Comment: No hemolysis noted. Ordering Provider: DARCIE CARTER Report Released Date/Time: Jan 04, 2024 04:29 PM Reporting Lab: [facility] [address] [facility] [address] Performing Lab: [facility] [address] [facility] [address] [facility] COMPREHE NSIVE METABOLI C PANEL POTASSIUM [MOLES/VOL UME] IN SERUM OR PLASMA 4.9 meq/L 3.5 - 5 04/06 Specimen Type: PLASMA Comment: No hemolysis noted. Ordering Provider: DARCIE CARTER Report Released Date/Time: Jan 04, 2024 04:29 PM Reporting Lab: [facility] [address] [facility] [address] Performing Lab: [facility] [address] [facility] [address] [facility] COMPREHE NSIVE METABOLI C PANEL CHLORIDE [MOLES/VOL UME] IN SERUM OR PLASMA 106 meq/L 98 - 107 04/06 Specimen Type: PLASMA Comment: No hemolysis noted. Ordering Provider: DARCIE CARTER Report Released Date/Time: Jan 04, 2024 04:29 PM Reporting Lab: [facility] [address] [place] [phone] Performing Lab: [facility] [address] [place] [phone] [facility] COMPREHE NSIVE METABOLI C PANEL CARBON DIOXIDE, TOTAL [MOLES/VOL UME] IN SERUM OR PLASMA 23 meq/L 22 - 31 04/06 Specimen Type: PLASMA Comment: No hemolysis noted. Ordering Provider: DARCIE CARTER Report Released Date/Time: Jan 04, 2024 04:29 PM Reporting Lab: [facility] [address] [facility] [address] Performing Lab: [facility] [address] [place] [phone] [facility] COMPREHE NSIVE METABOLI C PANEL CALCIUM [MASS/VOLU ME] IN SERUM OR PLASMA 9.5 mg/dL 8.4 - 10.4 04/06 Specimen Type: PLASMA Comment: No hemolysis noted. Ordering Provider: DARCIE CARTER Report Released Date/Time: Jan 04, 2024 04:29 PM Reporting Lab: [facility] [address] [facility] [address] Performing Lab: [facility] [address] [facility] [address] [facility] COMPREHE NSIVE METABOLI C PANEL PROTEIN [MASS/VOLU ME] IN SERUM OR PLASMA 7.1 g/dL 6 - 8.6 04/06 Specimen Type: PLASMA Comment: No hemolysis noted. Ordering Provider: DARCIE CARTER Report Released Date/Time: Jan 04, 2024 04:29 PM Reporting Lab: [address] [address] Performing Lab: [address] [phone] COMPREHE NSIVE METABOLI C PANEL ALBUMIN [MASS/VOLU ME] IN SERUM OR PLASMA 4.2 g/dL 3.4 - 5 04/06 Specimen Type: PLASMA Comment: No hemolysis noted. Ordering Provider: DARCIE CARTER Report Released Date/Time: Jan 04, 2024 04:29 PM Reporting Lab: [address] [address] Performing Lab: [phone] [place] [address] COMPREHE NSIVE METABOLI C PANEL BILIRUBIN. TOTAL [MASS/VOLU ME] IN SERUM OR PLASMA 1.6 mg/dL 0.2 - 1.2 04/06 H Specimen Type: PLASMA Comment: No hemolysis noted. Ordering Provider: DARCIE CARTER Report Released Date/Time: Jan 04, 2024 04:29 PM Reporting Lab: [address] [address] Performing Lab: [address] [phone] [place] [address] COMPREHE NSIVE METABOLI C PANEL ALKALINE PHOSPHATAS E [ENZYMATIC ACTIVITY/V OLUME] IN SERUM OR PLASMA 157 U/L 40 - 150 04/06 H Specimen Type: PLASMA Comment: No hemolysis noted. Ordering Provider: DARCIE CARTER Report Released Date/Time: Jan 04, 2024 04:29 PM Reporting Lab: [address] [address] Performing Lab: [facility] [address] [facility] [address] [facility] COMPREHE NSIVE METABOLI C PANEL ASPARTATE AMINOTRANS FERASE [ENZYMATIC ACTIVITY/V OLUME] IN SERUM OR PLASMA 26 U/L 5 - 34 04/06 Specimen Type: PLASMA Comment: No hemolysis noted. Ordering Provider: DARCIE CARTER Report Released Date/Time: Jan 04, 2024 04:29 PM Reporting Lab: [address] [address] Performing Lab: [phone] [place] [address] COMPREHE NSIVE METABOLI C PANEL ALANINE AMINOTRANS FERASE [ENZYMATIC ACTIVITY/V OLUME] IN SERUM OR PLASMA 20 U/L 8 - 40 04/06 Specimen Type: PLASMA Comment: No hemolysis noted. Ordering Provider: DARCIE CARTER Report Released Date/Time: Jan 04, 2024 04:29 PM Reporting Lab: [address] [address] Performing Lab: [phone] [place] [address] COMPREHE NSIVE METABOLI C PANEL GLOMERULAR FILTRATION RATE/1.73 SQ M.PREDICTE D [VOLUME RATE/AREA] IN SERUM, PLASMA OR BLOOD BY CREATININE -BASED FORMULA (CKD-EPI 2020) 68.1 60 04/06 Specimen Type: PLASMA Comment: No hemolysis noted. Ordering Provider: DARCIE CARTER Report Released Date/Time: Jan 04, 2024 04:29 PM Reporting Lab: [address] [address] Performing Lab: [address] POTASSIU M POTASSIUM [MOLES/VOL UME] IN SERUM OR PLASMA 4.5 meq/L 3.5 - 5 02/07 Specimen Type: PLASMA Comment: No hemolysis noted. Ordering Provider: ALBARCHA,BA SSAM Report Released Date/Time: Feb 08, 2024 10:57 AM Reporting Lab: [place] [address] [facility] [address] Performing Lab: [address] [address] [facility] TROPONIN I TROPONIN I.CARDIAC [MASS/VOLU ME] IN SERUM OR PLASMA 0.032 ng/mL 0 - 0.033 02/07 Specimen Type: PLASMA No comment entered. Ordering Provider: ELENI MASSEY SSAM Report Released Date/Time: Feb 08, 2024 10:21 AM Reporting Lab: [address] [address] Performing Lab: [address] [phone] [place] [address] POTASSIU M POTASSIUM [MOLES/VOL UME] IN SERUM OR PLASMA cancmeq/ L 3.5 - 5 02/07 HH Specimen Type: PLASMA Comment: K result canceled due to hemolysis. Specimen grossly hemolyzed. Potassium cancelled due to gross hemolysis. Notified Catrachito Rice RN in ER 02/08/24@10:0 3 LR. Ordering Provider: ELENI MASSEY SSA Report Released Date/Time: Feb 08, 2024 09:15 AM Reporting Lab: [address] [address] Performing Lab: [address] [phone] [place] [address] BRAIN NATRIURE TIC PEPTIDE NATRIURETI C PEPTIDE B [MASS/VOLU ME] IN SERUM OR PLASMA 196.3 pg/mL 0 - 100 02/07 H Specimen Type: PLASMA No comment entered. Ordering Provider: ELENI MASSEY SSA Report Released Date/Time: Feb 08, 2024 07:54 AM Reporting Lab: [address] [address] Performing Lab: [address] [address] [facility] Vital Signs Combined list of inpatient and outpatient Vital Signs from Department of Defense and Veterans Affairs, ranging from 12 months to all on record, depending upon the facility. Vital Sign Value Date Comments Source SYSTOLIC BLOOD PRESSURE 103 09/06/19 13:38:36 [facility] DIASTOLIC BLOOD PRESSURE 64 025 13:38:36 [facility] PULSE OXIMETRY 95 09/05/2024 13:38:36 [facility] WEIGHT 194.9 09/05/2024 13:38:36 [facility] BMI 28 kg/m2 09/05/2024 13:38:36 [facility] PAIN 0 09/05/2024 13:38:36 [facility] TEMPERATURE 97.7 09/05/2024 13:38:36 [facility] PULSE 88 09/05/2024 13:38:36 [facility] RESPIRATION 16 09/05/2024 13:38:36 [facility] SYSTOLIC BLOOD PRESSURE 129 04/18/20 11:02:08 [facility] DIASTOLIC BLOOD PRESSURE 79 024 11:02:08 [facility] PULSE OXIMETRY 96 04/18/2024 11:02:08 [facility] WEIGHT 191.4 04/18/2024 11:02:08 [facility] BMI 28 kg/m2 04/18/2024 11:02:08 [facility] PAIN 0 04/18/2024 11:02:08 [facility] HEIGHT 70 04/18/2024 11:02:08 [facility] TEMPERATURE 97.9 04/18/2024 11:02:08 [facility] PULSE 89 04/18/2024 11:02:08 [facility] RESPIRATION 18 04/18/2024 11:02:08 [facility] SYSTOLIC BLOOD PRESSURE 127 04/06/20 24 11:02:41 [facility] DIASTOLIC BLOOD PRESSURE 81 024 11:02:41 [facility] PULSE OXIMETRY 97 04/06/2024 11:02:41 [facility] WEIGHT 190.4 04/06/2024 11:02:41 [facility] BMI 27 kg/m2 04/06/2024 11:02:41 [facility] PAIN 1 04/06/2024 11:02:41 [facility] TEMPERATURE 98 04/06/2024 11:02:41 [facility] PULSE 89 04/06/2024 11:02:41 [facility] RESPIRATION 16 04/06/2024 11:02:41 [facility] SYSTOLIC BLOOD PRESSURE 116 04/04/20 24 11:37:28 [facility] DIASTOLIC BLOOD PRESSURE 72 11:37:28 [facility] PULSE OXIMETRY 96 04/04/2024 11:37:28 [facility] WEIGHT 192.2 04/04/2024 11:37:28 [facility] BMI 28 kg/m2 04/04/2024 11:37:28 [facility] PAIN 0 04/04/2024 11:37:28 [facility] HEIGHT 70 04/04/2024 11:37:28 [facility] TEMPERATURE 97.4 04/04/2024 11:37:28 [facility] PULSE 89 04/04/2024 11:37:28 [facility] RESPIRATION 18 04/04/2024 11:37:28 [facility] SYSTOLIC BLOOD PRESSURE 160 02/08/20 24 07:25:00 [facility] DIASTOLIC BLOOD PRESSURE 97 024 07:25:00 [facility] PAIN 0 02/08/2024 07:25:00 [facility] TEMPERATURE 97.6 02/08/2024 07:25:00 [facility] PULSE 89 02/08/2024 07:25:00 [facility] RESPIRATION 18 02/08/2024 07:25:00 [facility] Encounters Combined list of: 1) Encounters from Department of Veterans Affairs facilities going backup to the last 18 months, not all VA inpatient encounters are included; 2) Encounters from the Department of Defense facilities going backup to 280 months. Location Location Details Encounter Type Encounter Number Reason For Visit Attending Provider ADM Date DC Date Status Disposition Source [facility] OFFICE O/P EST HI 40-54 MIN [id number] Diagnos is: ICD-10- CM I10 Essenti al (primar y) hyperte nsion GISELA AVINA K 03/[address] [facility] OFF/OP CNSLTJ NEW/EST LOW 30 [id number] [id number] Diagnos is: ICD-10- CM M54.59 Other low back pain LUIS FELIPE STONER 04/03 [facility] [place] [id number] [id number] Diagnos is: ICD-10- CM I50.20 Unspeci fied systoli c (conges tive) heart failure JUAN TOMAS IL C 04/[address] [facility] POSTOP FOLLOW-UP VISIT [id number] [id number] Diagnos is: ICD-10- CM Z98.41 Catarac t extract ion status, right eye TAQUERIA PRADO 04/15 [facility] Outpatient Encounter [id number] Azucena CIFUENTES 04/20 [facility] Outpatient Encounter [id number] MIKE CARTER 04/30 [facility] OFFICE O/P EST MOD 30-39 MIN [id number] [id number] Diagnos is: ICD-10- CM N18.2 Chronic kidney disease , stage 2 (mild) BUBBA SIMS S 05/05 [facility] OFFICE O/[place] HI 40 MIN [id number] [id number] Diagnos is: ICD-10- CM I50.22 Chronic systoli c (conges tive) heart failure MALVIN CASE H 06/03 [facility] Outpatient Encounter [id number] 06/10 [facility] Outpatient Encounter [id number] 06/11 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 OFFICE O/P EST SF 10 MIN [id number] [id number] Diagnos is: ICD-10- CM Z01.818 Encount er for other preproc edural examina LATOSHA Gtz 06/17 [facility] Outpatient Encounter [id number] RACQUEL MEJIA A 06/17 [facility] Outpatient Encounter [id number] [id number] NAVNEET WILLIS ICA Y 06/17 [facility] XCAPSL CTRC RMVL W/O ECP [id number] [id number] RACQUEL MEJIA A 06/17 [facility] Outpatient Encounter [id number] [id number] SAUL BUSBY Y I 06/17 [facility] POSTOP FOLLOW-UP VISIT [id number] [id number] 5 Diagnos is: ICD-10- CM Z98.42 Catarac t extract ion status, left eye TAQUERIA PRADO 06/18 [facility] Outpatient Encounter [id number] [id number] SHLOMO WOMACK John 06/23 [facility] Outpatient Encounter [id number] [id number] 06/24 [facility] POSTOP FOLLOW-UP VISIT [id number] [id number] Diagnos is: ICD-10- CM Z98.42 Catarac t extract ion status, left eye NAVNETE WILLIS ICA Y 06/26 [facility] Outpatient Encounter [id number] [id number] 06/29 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 QNHP OL DIG ASSMT&MGMT 11-20 [id number] [id number] Diagnos is: ICD-10- CM E11.8 Type 2 diabete s mellitu s with unspeci fied complic ations MAURILIO SY Chirag L 08/26 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 OFFICE O/P NEW MOD 45 MIN [id number] [id number] Diagnos is: ICD-10- CM R35.0 Frequen cy of micturi tion LEONEL,R ALPH J 08/27 [facility] Outpatient Encounter [id number] [id number] Azucena FLOYD [facility]SEPH MATHEUS 08/27 [facility] OFF/OP EST MAY X REQ PHY/QHP [id number] [id number] Diagnos is: ICD-10- CM H61.23 Parmindere d valentin luo RICH ELLE D 09/02 [facility] Outpatient Encounter [id number] [id number] 09/16 [facility] Outpatient Encounter [id number] [id number] 09/16 [facility] OFF/OP EST MAY X REQ PHY/QHP [id number] [id number] Diagnos is: ICD-10- CM I49.01 Ventric ular fibrill ation KIMMYSANTA S 09/16 [facility] Outpatient Encounter [id number] [id number] MAURILIO SY 10/05 [facility] INTERROG DEVICE EVAL HEART [id number] [id number] Diagnos is: ICD-10- CM I50.20 Unspeci fied systoli c (conges tive) heart failure JUAN TOMAS C 10/05 [facility] OFFICE O/P EST HI 40 MIN [id number] [id number] Diagnos is: ICD-10- CM I49.01 Ventric ular fibrill ation JUAN TOMAS C 10/05 [facility] Outpatient Encounter [id number] [id number] 10/05 [facility] HC PRO PHONE CALL 21-30 MIN [id number] [id number] 3 Diagnos is: ICD-10- CM I50.20 Unspeci fied systoli c (conges tive) heart failure KEYANNA SAINZ 10/07 [facility] Outpatient Encounter [id number] [id number] 10/07 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 OFFICE O/P EST MOD 30 MIN [id number] [id number] Diagnos is: ICD-10- CM I49.01 Ventric ular fibrill atchris GRETCHEN FREIRE 10/14 [facility] Outpatient Encounter [id number] [id number] 10/14 [facility] Inpatient Encounter [id number] [id number] Admit Reason: CORONAR Y ARTERY DISEASE SOLOMON DEMARCO 10/14 [facility] Inpatient Encounter [id number] [id number] JAIME CABRERA 10/14 [facility] Inpatient Encounter [id number] [id number] JAIME CABRERA 10/14 [facility] Inpatient Encounter [id number] [id number] EDWINA NICK RA 10/14 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 Inpatient Encounter [id number] [id number] SERINATRISTIN LOUISE 10/15 [facility] 3D RENDER W/INTRP POSTPROCES [id number] [id number] 7 Diagnos is: ICD-10- CM I25.118 Athscl heart disease [place] cor art w oth yasmeen pctrs KERLINE PEREZ R 10/15 [facility] En[facility] [id number] [id number] Akash ROBLES 10/15 [facility] Inpatient Encounter [id number] [id number] 1 Akash ROBLES 10/15 [facility] Inpatient Encounter [id number] [id number] DAGOBERTO GRAVES Azucena 10/15 [facility] Inpatient Encounter [id number] [id number] Akash ROBLES 10/15 [facility] Inpatient Encounter [id number] [id number] EPHRAIM PARKS 10/15 [facility] Inpatient Encounter [id number] [id number] 3 EPHRAMI PARKS 10/15 [facility] Inpatient Encounter [id number] [id number] 10/16 [facility] Inpatient Encounter [id number] [id number] SUSANNAH LOUISE 10/16 [facility] En[facility] [id number] [id number] EPHRAIM PARKS 10/16 [facility] Outpatient Encounter [id number] [id number] 10/20 [facility] QNHP OL DIG ASSMT&MGMT 5-10 [id number] [id number] 6 Diagnos is: ICD-10- CM I50.20 Unspeci fied systoli c (conges tive) heart failure GITA SARMIENTO 10[facility]26 [facility] OFF/OP EST MAY X REQ PHY/QHP [id number] [id number] Diagnos is: ICD-10- CM Z95.0 Presenc e of cardiac pacemak er RADHA NGUYEN 10/29 [facility] Outpatient Encounter [id number] [id number] ENRIQUE MANCIA L 11/02 [facility] OFF/OP CNSLTJ NEW/EST LOW 30 [id number] [id number] Diagnos is: ICD-10- CM 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 coronar y artery w/o KERLINE Alfredo 11/02 [facility] Outpatient Encounter [id number] [id number] 11/04 [facility] Outpatient Encounter [id number] [id number] 11/05 [facility] Outpatient Encounter [id number] [id number] 11/10 [facility] Outpatient Encounter [id number] [id number] 11/12 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 Outpatient Encounter [id number] [id number] 11/21 [facility] OFFICE O/P EST MOD 30 MIN [id number] [id number] Diagnos is: ICD-10- CM I50.22 Chronic systoli c (conges tive) heart failure MANPREETMALVIN Dante 11/29 [facility] Outpatient Encounter [id number] [id number] 12/01 [facility] QNHP OL DIG ASSMT&MGMT 11-20 [id number] [id number] Diagnos is: ICD-10- CM I10 Essenti al (primar y) hyperte MILAGROS David 12/03 [facility] HC PRO PHONE CALL 5-10 MIN [id number] [id number] Diagnos is: ICD-10- CM I10 Essenti al (primar y) hypertMILAGROS Guerrero 12/03 [facility] OFF/OP CNSLTJ NEW/EST LOW 30 [id number] [id number] Diagnos is: ICD-10- CM 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 coronar y artery w/o ang pctNathalie Ortega 12/08 [facility] QNHP OL DIG ASSMT&MGMT 5-10 01236-2.65 [id number] Diagnos is: ICD-10- CM 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 coronar y artery w/o MILAGROS Little 12/09 [facility] Outpatient Encounter [id number] [id number] Diagnos is: ICD-10- CM 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 coronar y artery w/o ang MALVIN Aguero 12/10 [facility] OFFICE O/P EST MOD 30 MIN 20528-7.65 [id number] Diagnos is: ICD-10- CM N18.2 Chronic kidney disease , stage 2 (mild) BUBBA SIMS 12/14 [facility] Outpatient Encounter [id number] [id number] 12/17 [facility] Outpatient Encounter 72376-8.66 [id number] 12/20 [facility] Outpatient Encounter 48308-8.65 [id number] RADHA NGUYEN 12/21 [facility] [place] 86823-1.65 [id number] Diagnos is: ICD-10- CM H61.21 Impacte d cerumen , right ear TRAN ALVARADO E 12/23 [facility] HC PRO PHONE CALL 11-20 MIN 46078-1.65 [id number] Diagnos is: ICD-10- CM I10 Essenti al (primar y) hyperte nsion MILAGROS CALDERON 12/23 [facility] Outpatient Encounter 56692-9.65 [id number] JAIMERADHA MARIN Chantal 01/03 [facility] Outpatient Encounter [id number] [id number] 01/05 [facility] Outpatient Encounter 65093-6.65 [id number] GARRETMARIChirag Zelaya 01/06 [facility] Outpatient Encounter 82597-9.65 [id number] 01/20 [facility] Outpatient Encounter [id number] [id number] Diagnos is: ICD-10- CM N20.0 Calculu s of kidney STEPANMARKBUBBA S 01/23 [facility] QNHP OL DIG ASSMT&MGMT 21+ 46863-2.65 [id number] Diagnos is: ICD-10- CM 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 coronar y artery w/o ang pctrs MILAGROS CALDERON 02/02 [facility] Outpatient Encounter [id number] [id number] Chantal MASSEYAM 02/07 [facility] EMERGENCY DEPT VISIT MOD MDM 27194-0.65 [id number] Diagnos is: ICD-10- CM I95.89 Other hypoten francisco javier Chantal MASSEY ASSAM 02/07 [facility] Outpatient Encounter 93802-5.65 [id number] 02/07 [facility] Outpatient Encounter 98766-5.65 [id number] Pawan HERNANDEZ 02/07 [facility] Outpatient Encounter 87846-4.65 [id number] DARIANChantal NYE 02/07 [facility] Outpatient Encounter 08230-4.65 [id number] 02/08 [facility] Outpatient Encounter 92607-8.65 [id number] Giovany ESCOBAR F 02/14 [facility] Outpatient Encounter 73163-6.65 [phone] 1 NAKUL HAMILTON AM H 03/18 [facility] OFFICE O/P EST LOW 20 MIN 45415-6.65 [id number] 7 Diagnos is: ICD-10- CM N20.0 Calculu s of kidney LEONEL,R ALPH J 04/04 [facility] OFFICE O/P EST MOD 30 MIN 37649-5.65 [id number] Diagnos is: ICD-10- CM E10.59 Type 1 diabete s mellitu s with oth circula tory complic atAzucena Quiroga 04/[address] [facility] OFFICE O/P EST MOD 30 MIN [id number] Diagnos is: ICD-10- CM I50.22 Chronic systoli c (conges tive) heart failure MALVIN CASE H 04/06 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 Outpatient Encounter [id number] BRODIEABIRVIN KYUNG 05/11 [facility] OFFICE O/P EST MOD 30 MIN [id number] Diagnos is: ICD-10- CM R07.89 Other chest pain VICKI SHAY 05/11 [facility] Outpatient Encounter [id number] 05/11 [facility] Outpatient Encounter [id number] 05/12 [facility] Outpatient Encounter [id number] NAKUL HAMILTON AM H 05/12 [facility] OFF/OP EST MAY X REQ PHY/QHP [id number] [id number] Diagnos is: ICD-10- CM H61.23 Parmindere valentin hamm SHE RREL L 05/19 [facility] PH1 ASSMT&MGMT NQHP 5-10 [id number] [id number] Diagnos is: ICD-10- CM I50.20 Unspeci fied systoli c (conges tive) heart failure Azucena RUFFIN 06/09 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 Outpatient Encounter [id number] RADHA NGUYEN 08/02 [facility] Outpatient Encounter [id number] RADHA NGUYEN 08/10 [facility] NQHP OL DIG ASSMT&MGMT 5-10 [id number] [id number] Diagnos is: ICD-10- CM I25.118 Athscl heart disease [place] cor art w oth ang pctrs MILAGROS CALDREON Nathalie 08/25 [facility] OFFICE O/P EST HI 40 MIN [id number] [id number] Diagnos is: ICD-10- CM I50.22 Chronic systoli c (conges tive) heart failure MALVIN CASE 09/05 [facility] Outpatient Encounter [id number] 09/16 [facility] Procedures Combined list of: 1) Procedures from [facility] facilities going back up to thelast 18 months, not all VA non-surgical procedures are included; 2) All procedures from the Department of [facility] facilities. Procedure Procedure Type Code Date Perfomer Comments Sourc e LEFT EYE PHACO CATARACT EXTRACTION WITH LENS IMPLANT XCAPSL CTRC RMVL W/O ECP 52403 06/17/2023 [place] RO [facility] Social History Combined list of available smoking, tobacco, and other social history from Department of [facility] and [facility] facilities. Social History Type Response Date Comment Sourc e Tobacco smoking status NHIS DE-TOBACCO NEVER USED CIGARETTES 04/18/2024 [facility] History of tobacco use VA-TOBACCO NEVER USED OTHER TYPE 04/18/2024 [facility] History of tobacco use ORYX ADMIT TOBACCO SCREEN NO 10/15/2023 [facility] History of tobacco use VA-TOBACCO NEVER USED 10/14/2022 [facility] History of tobacco use ORYX ADMIT TOBACCO SCREEN NO 03/13/2022 [facility] History of tobacco use VA-TOBACCO NEVER USED 11/09/2020 [facility] History of tobacco use VA-TOBACCO FORMER USER 04/20/2019 [facility] History of tobacco use VA-TOBACCO NEVER USED 10/22/2017 [facility] History of tobacco use LIFETIME NON-USER OF TOBACCO 03/06/2017 [facility] History of tobacco use LIFETIME NON-USER OF TOBACCO 11/19/2015 [facility] History of tobacco use LIFETIME NON-USER OF TOBACCO 05/02/2014 [facility] History of tobacco use LIFETIME NON-USER OF TOBACCO 06/15/2013 [facility] History of tobacco use LIFETIME NON-USER OF TOBACCO 06/17/2012 [facility] Plan of Care List of future care activities from [facility] facilities. Additional future care activities may be listed in the Assessment and Plan section. Date/Time Care Activity Care Activity Detail Facili ty 10/06/2024 AMBULATORY - MEDICINE AMBULATORY - MEDICI NE [facility] Advance Directives List of completed, amended, or rescinded Advance Directives on record at [facility] facilities. An actual copy of the Directive is not included. Date Advance Directive Provider Source 11/19/2015 ADVANCE DIRECTIVE DISCUSSION JENNIFER LONDONO [facility]
== END 2024-09-23 11:10 | disposition home or self-care (01) ==
PROVIDERS: PCP Family Medicine; Visit Provider Family Medicine
DX: J90 Pleural effusion, not elsewhere classified (principal); J98.4 Other disorders of lung; J98.11 Atelectasis; Z95.1 Presence of aortocoronary bypass graft; Z95.0 Presence of cardiac pacemaker
CPT/HCPCS: 71250

== ENCOUNTER 2025-01-31 08:15 | Emergency (ER) | payer MEDICARE, OTHER, SELFPAY ==
[2025-01-31 08:17] VITALS: BP 121/84; PULSE 89; RESP 16; TEMP 36.2; O2SAT 97
--- NOTE | 2025-01-31 08:34 | ED.URI ---
HPI - URI/Sore Throat General Chief Complaint: Upper Respiratory Infection Stated Complaint: Trouble Breathing Time Seen by Provider: 01/31/25 08:34 Source: patient, RN notes reviewed and old records reviewed Mode of arrival: ambulatory Limitations: no limitations History of Present Illness HPI Narrative: 79-year-old male presents to the [facility] with complaints of shortness of breath. States he felt fine on Thursday, Thursday was feeling short of breath especially when laying flat states that he was ?gasping? for air. Patient with his significant cardiac history. Denies any cough, fevers, denies any congestion. Reports chest tightness. States that he tried going for a walk yesterday and could not walk as he normally does, had to walk slower due to the shortness of breath. Per patient's continue glucose monitor blood sugar 129 Patient reports last night his oxygen level was 89% Onset (ago): day(s) (2) Treatments prior to arrival: aspirin (81mg) Related Data Home Medications ?Medication ?Instructions ?Recorded ?Confirmed ?Last Taken ?Type aspirin 81 mg tablet,delayed 81 mg PO DAILY 07/14/19 06/17/24 04/10/21 History release cholecalciferol (vitamin D3) 50 50 mcg PO DAILY 08/24/20 12/14/24 04/10/21 12:00 History mcg (2,000 unit) tablet insulin lispro 100 unit/mL 25 unit subcut .COMPLEX 12/03/22 12/14/24 Unknown History subcutaneous solution (Humalog U-100 Insulin) tamsulosin 0.4 mg capsule (Flomax) 0.4 mg PO QHS 09/16/23 12/14/24 Unknown History metoprolol succinate 25 mg 12.5 mg PO DAILY 12/14/23 12/14/24 Unknown History tablet,extended release 24 hr atorvastatin 20 mg tablet 80 mg PO DAILY 12/14/24 12/14/24 Unknown History diphenhydramine 25 2 tablet PO HS 12/14/24 12/14/24 Unknown History mg-acetaminophen 500 mg tablet (Tylenol PM Extra Strength) gabapentin 300 mg capsule 300 mg PO TID 12/14/24 12/14/24 Unknown History insulin glargine 100 unit/mL 15 unit subcut DAILY 12/14/24 12/14/24 Unknown History subcutaneous solution (Lantus U-100 Insulin) Allergies Allergy/AdvReac Type Severity Reaction Status Date / Time levofloxacin Allergy Unknown Muscle Verified 01/31/25 08:30 Spasms lisinopril AdvReac Unknown High Verified 01/31/25 08:30 potassium Review of Systems Review of Systems: All systems reviewed & are unremarkable except as noted in HPI and below Constitutional: Constitutional: Reports as per HPI and Reports fatigue Cardiovascular: Cardiovascular: Reports as per HPI, Denies chest pain, Denies edema, Denies leg edema, Denies lightheadedness, Reports dyspnea, Reports orthopnea and Reports other (Chest tightness) Respiratory: Respiratory: Reports no additional respiratory complaints, Denies chest congestion, Denies cough and Reports dyspnea Gastrointestinal: Gastrointestinal: Reports no additional gastrointestinal complaints and Denies nausea Musculoskeletal: Musculoskeletal: Reports no additional musculoskeletal complaints Integumentary/Breasts: Skin/Breast: Reports system reviewed and no additional complaints, except as docu PMFSH Past Medical History Medical History Strain of left shoulder Soft tissue injury of back Depression with anxiety Restless leg syndrome CAD (coronary artery disease) Congestive heart failure Impacted cerumen of right ear Essential (primary) hypertension Mixed hyperlipidemia Type 1 diabetes mellitus maturity onset Heart block Complete heart block requiring a pacemaker Cardiac pacemaker Surgical History Surgical History S/P triple vessel bypass History of coronary artery stent placement X8 H/O percutaneous transluminal coronary angioplasty H/O vasectomy Family History Family History Grandparent Diabetes mellitus Hypertension Family history of coronary artery disease Sibling Hypertension Mother Family history of elevated blood lipids Family history of coronary artery disease Hypertension Family history of cardiovascular disease Father Family history of coronary artery disease Family history of elevated blood lipids Hypertension Family history of cardiovascular disease Social History Social History Social History: The patient is and lives with his . He has 2 children. The patient is retired from working for [employer]. The patient states that he is a lifelong nonsmoker does not use any marijuana alcohol or illicit drugs. His is the durable power claims attorney for healthcare. Code status full Caffeine- soda Smoking status: Never smoker Alcohol intake: current Drinks per week: 1 Substance use: current Substance use type: marijuana Other substance usage details: gummies/liquid Lack of Transportation: No Lack of Food: Never True Current Housing: I Have Housing Concerned About Future Housing: No Difficulty Paying Gas/Electric Bills: No Difficulty Paying for Meds: No Currently Unemployed: No Education: Master's Degree or Higher Difficulty w/ Childcare or Family Care: No Living arrangements: with family Additional living arrangements comments: Spouse Occupation/Education: retired Gender identity (if verbalized by the patient): Male Spiritual care concerns: No Comments At the time of my signature, I reviewed and agree with the nursing past medical, surgical, social, and family history. There is no relevant family history pertinent to the patient complaint. Exam Const: General: cooperative, healthy appearing, comfortable, no acute distress, well developed, alert and well nourished Nutritional Appearance: well nourished Orientation/consciousness: patient oriented x3 Limitations: no limitations HENMT: Head: normal to inspection Ears: hearing grossly normal bilaterally, external ears normal, TM's normal bilaterally, EAC's normal, mastoids normal and no periauricular adenopathy Mouth: Yes Normal oral and palatal mucosa present, Yes lip normal, Yes tongue normal and Yes moist mucous membranes Throat: posterior oropharynx normal, uvula midline and no uvular edema Eyes: General: appearance normal, both eyes and all related structures Alignment and Position: alignment normal Neck: Neck: normal visual inspection, full ROM, no lymphadenopathy and no meningeal signs Chest: Chest palpation & inspection: normal inspection of the chest Resp: Effort & Inspection: normal respiratory effort and able to speak in complete sentences Auscultation: clear to auscultation bilaterally, no crackles, no rales, no rhonchi and no wheezes Cardio: Rate: regular rate Skin: General skin exam: normal color and no rashes or lesions noted Neuro: General: patient oriented x3, gait normal, moves all extremities and no meningeal signs Cognition (Neuro): normal cognition Speech: normal speech Gait exam (Neuro): Normal gait present Extrem: General: normal to inspection, full ROM, capillary refill normal and normal gait Right lower extremity: full ROM and ankle Details: no edema; no swelling Left lower extremity: full ROM and ankle Details: no edema; no swelling Psych: Appearance: grossly normal and well kempt Mental Status: mental status grossly normal Speech and movement: Normal speech and movement present and Clear speech present Affect: normal affect Attitude: cooperative Course Course Level of Care: Express Care Visit Vital Signs Vital signs: Vital Signs Temperature 97.2 F L 01/31/25 08:17 Pulse Rate 89 01/31/25 08:17 Respiratory Rate 16 01/31/25 08:17 Blood Pressure 121/84 01/31/25 08:17 Pulse Oximetry 97 01/31/25 08:17 Temperature 97.2 F L 01/31/25 08:17 Pulse Rate 89 01/31/25 08:17 Respiratory Rate 16 01/31/25 08:17 Blood Pressure 121/84 01/31/25 08:17 Pulse Oximetry 97 01/31/25 08:17 Reviewed Transfer Transfered to: [facility] Transportation: [facility] Transfer rationale: Patient with EKG stating acute OR sending for higher level of care Accepting physician: Dr Lay MDM - URI/Sore Throat MDM Narrative Medical decision making narrative: Patient sitting in exam room. Patient with only complaint of shortness of breath and chest tightness, negative flu and COVID, EKG shows an acute OR, EMS was called, oxygen place, gave additional 3 baby aspirin, IV was placed Call to [facility] closest facility Patient transported per EMS Transfer instructions reviewed with patient, EMS called All questions have been answered, and the patient deny any further questions. Some parts of this dictation were generated by voice recognition software and may contain typographical and/or grammatical inaccuracies. Differential Diagnosis Differential diagnosis: Likely upper respiratory infection, viral infection, bronchitis, influenza and other Lab Data Labs: Lab Results 01/31/25 Range/Units 09:03 POC Influenza A Ag Negative (Negative) POC Influenza B Ag Negative (Negative) POC SARS CoV-2 Ag Negative (Negative) Reviewed ECG Data EKG #1: Attestation: I personally reviewed and interpreted this ECG as follows: ECG completion date: 01/31/25 ECG completion time: 08:53 Prior ECG tracings: not available for review Interpretation: Electric H atrial pacemaker, ventricle pacemaker, marked ST elevation, acute OR Critical Care Time Critical Care Time Critical Care Time: No Discharge Plan Discharge Clinical Impression: Acute OR Patient Disposition: Acute Care Hospital Condition: Serious Patient Language: Lithuanian Prescriptions: No Action diphenhydramine-acetaminophen [Tylenol PM Extra Strength] 25-500 mg tablet 2 tablet PO HS aspirin 81 mg tablet,delayed release (DR/EC) 81 mg PO DAILY tamsulosin [Flomax] 0.4 mg capsule 0.4 mg PO QHS insulin glargine [Lantus U-100 Insulin] 100 unit/mL solution 15 unit SUB-Q DAILY cholecalciferol (vitamin D3) 50 mcg (2,000 unit) tablet 50 mcg PO DAILY atorvastatin 20 mg tablet 80 mg PO DAILY insulin lispro [Humalog U-100 Insulin] 100 unit/mL solution 25 unit subcut .COMPLEX Rx Instructions: 25 units subcutaneously on sliding scale; gabapentin 300 mg capsule 300 mg PO TID metoprolol succinate 25 mg tablet extended release 24 hr 12.5 mg PO DAILY Patient Comments: managed by cardiology albuterol sulfate [Ventolin HFA] 90 mcg/actuation HFA aerosol inhaler 2 inh inhalation Q4H PRN (Reason: shortness of breath or wheezing) Qty: 8.5 0RF citalopram 20 mg tablet See Rx Instructions .ROUTE .COMPLEX Qty: 90 1RF Dose Instruction: Take 1 tablet by mouth once daily Rx Instructions: Take 1 tablet by mouth once daily Follow-up/Referrals: Nichole Ndiaye DO [Primary Care Provider, Family Practice]
--- NOTE | 2025-01-31 08:45 | ECG_ITS ---
Test Date: 2025-01-31 09:37:14 Measurements Intervals [place] Rate: 70 P: 189 MS: 113 QRS: -85 QRSD: 188 T: 127 QT: 510 QTc: 553 Interpretive Statements ELECTRONIC ATRIAL PACEMAKER ELECTRONIC VENTRICULAR PACEMAKER ABNORMAL RHYTHM ECG No previous ECG available for comparison Electronically Signed On 01-31-2025 10:43:30 CDT by Hardeep Vargas M.D.
--- NOTE | 2025-01-31 08:53 | PC.NURSE ---
EKG done at bedside. FACILITIES ENGINEERING MANAGER aware of results and to room. Pt moved to room 9, place onto cardiac montior and EMS being called for transfer.
[2025-01-31 08:55] VITALS: O2SAT 97
--- NOTE | 2025-01-31 08:58 | PC.NURSE ---
EMS here, report given.
[2025-01-31 09:02] VITALS: BP 152/79; PULSE 71; RESP 17; O2SAT 98
[2025-01-31 09:05] LABS: EDCOVIDSCREEN Negative (Negative); EDINFLUASCREEN Negative (Negative); EDINFLUBSCREEN Negative (Negative)
--- NOTE | 2025-01-31 09:18 | PC.NURSE ---
Report given to Danielle JOLLEY at ED
[2025-01-31] MEDS: ASPIRIN 81 MG CHEWABLE TABLET 324 MG PO (09:41)
== END 2025-01-31 09:02 | disposition short-term general hospital (02) ==
PROVIDERS: Emergency Provider Nurse Practitioner; PCP Family Medicine
DX: I21.B Myocardial infarction with coronary microvascular dysfunction (principal); Z20.822 Contact with and (suspected) exposure to COVID-19; I25.10 Atherosclerotic heart disease of native coronary artery without angina pectoris; I11.0 Hypertensive heart disease with heart failure; I50.9 Heart failure, unspecified; E78.2 Mixed hyperlipidemia; E10.9 Type 1 diabetes mellitus without complications; Z79.4 Long term (current) use of insulin; Z95.0 Presence of cardiac pacemaker; Z95.5 Presence of coronary angioplasty implant and graft; Z98.52 Vasectomy status; G25.81 Restless legs syndrome; Z79.82 Long term (current) use of aspirin
CPT/HCPCS: 87426; 87804; 93005; 99215; A9270; G0463

== ENCOUNTER 2025-01-31 09:27 | Emergency (ER) | payer MEDICARE, OTHER, SELFPAY ==
--- OUTSIDE RECORDS SUMMARY | 2024-09-05 08:00 | XMS_ITS | Encounter Summary ---
Author Name [facility] [place] [facility] [place] [place] Address [address] [place] [address] Care Team Providers Care Fabric Coating Supervisor Name Role Phone RAUL, DEVIN Primary Care Provider Unavailabl e Insurance Providers: All historical and current Section Date Range: From patient's date of to the date document was created. This section includes the names of all active insurance providers for the patient. Insurance Provider Type of Coverage Plan Name Start of Policy Coverage End of Policy Coverage Group Number Member ID Insurance Provider's Telephone Number Policy Peterson's Name Patient's Relationship to Policy Peterson MEDICARE (WNR) MEDICARE (M) PART A Jun 01, 2012 PART A [id number] [phone] PILOMARYSEMAKENNA,SENA VID PATIENT MEDICARE (WNR) MEDICARE (M) PART B Jun 01, 2012 PART B [id number] PILOMARYSEEN,DA VID PATIENT MEDICARE (WNR) MEDICARE (M) PART A Jun 01, 2012 PART A [id number] PILOMARYSEEN,DA VID PATIENT MEDICARE (WNR) MEDICARE (M) PART B Jun 01, 2012 PART B [id number] GOCKEN,DA VID PATIENT MEDICARE (WNR) MEDICARE (M) PART A Jun 01, 1999 PART A [id number] SENA SOTO PATIENT Selected Encounter This section includes the information on record at [place] for the Encounter. Date/Time Encounter Type Encounter Description Reason Provider Source Sep 05, 2024 01:00 PM OFFICE O/P EST HI 40 MIN CARDIOLOGY ICD-10-CM I50.22 Chronic systolic (congestive) heart failure [facility] Encounter Template Text not used by [place] Assessments - Encounter Diagnoses This section includes the primary and secondary diagnoses documented for the Encounter. Date/Time Primary/Secondary Diagnosis Diagnosis Name Provider Source Sep 05, 2024 07:52 PM PRIMARY Chronic systolic (congestive) heart failure [facility] Sep 05, 2024 07:52 PM SECONDARY Athscl heart disease of [place] coronary artery w/o ang pctrs [facility] Sep 05, 2024 07:52 PM SECONDARY Cardiomyopathy, unspecified [facility] Sep 05, 2024 07:52 PM SECONDARY Hyperlipidemia, unspecified [facility] Sep 05, 2024 07:52 PM SECONDARY Presence of automatic (implantable) cardiac defibrillator 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 Plan of Treatment: Future Appointments (+ 6 months) and Future Tests (+/- 45 days) The Plan of Treatment section includes future care activities for the patient [facility] [place] [facility]. This section includes future appointments and future orders which are active, pending or scheduled. Future Appointments This section includes appointments that were scheduled to occur 6 months from the date of the Encounter, up to a maximum of 20 appointments. The data comes from all [place] treatment facilities. Appointment Date/Time Appointment Type Appointme nt Facility Name October 06, 2024 11:00 AM AMBULATORY - MEDICINE [facility] October 12, 2024 02:00 PM AMBULATORY - MEDICINE [facility] October 18, 2024 10:00 AM AMBULATORY - MEDICINE [facility] October 25, 2024 01:00 PM AMBULATORY - NONE [facility] Nov 21, 2024 08:30 AM AMBULATORY - MEDICINE [facility] Nov 21, 2024 11:00 AM AMBULATORY - NONE [facility] Dec 06, 2024 10:40 AM AMBULATORY - MEDICINE [facility] Dec 08, 2024 12:15 PM AMBULATORY - MEDICINE [facility] Dec 08, 2024 12:30 PM AMBULATORY - NONE . [facility] Dec 28, 2024 02:30 PM AMBULATORY - MEDICINE [facility] Jan 26, 2025 12:45 PM AMBULATORY - MEDICINE [facility] Feb 08, 2025 12:30 PM AMBULATORY - MEDICINE [facility] Feb 23, 2025 01:00 PM AMBULATORY - MEDICINE [facility] Mar 07, 2025 12:30 PM AMBULATORY - MEDICINE [facility] Vital Signs: All taken on the encounter date This section contains inpatient and outpatient Vital Signs collected on the date of the Encounter. Date/Time Temperature Pulse Blood Pressure Respiratory Rate SP02 Pain Height Weight Body Mass Index Source Sep 05, 2024 01:38 PM 97.7 88 103/64 16 95 0 194.9 28 [facility] Social History: Smoking Status (Most current) and Tobacco Use (All prior to encounter date) This section includes the most current, and the historical, smoking and tobacco- related health factors from the [place] facility where the Encounter took place. Current Smoking Status This section includes the most current smoking, or tobacco-related health factor, from the [place] facility where the Encounter took place. Date/Time Current Smoking Status Comment Lux ity October 15, 2023 06:15 AM ORYX ADMIT TOBACCO SCREEN NO [facility] Tobacco Use History This section includes a history of the smoking, or tobacco-related health factors, that were collected on or before the date of the Encounter. The data comes from the [place] facility where the Encounter took place. Date/Time Smoking Status/Tobacco Use Comment F actoya October 14, 2022 01:17 PM VA-TOBACCO NEVER USED [facility] Mar 13, 2022 05:25 PM ORYX ADMIT TOBACCO SCREEN NO [facility] Apr 20, 2019 11:02 AM VA-TOBACCO FORMER USER [facility] Apr 20, 2019 11:02 AM VA-TOBACCO QUIT 15 YRS OR MORE [facility] Nov 19, 2015 09:23 AM LIFETIME NON-USER OF TOBACCO [facility] May 02, 2014 08:44 AM LIFETIME NON-USER OF TOBACCO [facility] Jun 15, 2013 04:36 PM LIFETIME NON-USER OF TOBACCO [facility] Jun 17, 2012 09:31 AM LIFETIME NON-USER OF TOBACCO [facility] Advance Directives: All historical and current Section Date Range: From patient's date of to the date document was created. This section includes ALL of a patient's completed or amended [place] Advance and Rescinded Directives. The entries below indicate that a directive exists for the patient, but an actual copy is not included with this document. The data comes from all [place] facilities. Date Advance Directives Provider Source Nov 19, 2015 ADVANCE DIRECTIVE DISCUSSION JENNIFER LONDONO [facility] Encounter Notes: All associated encounter notes This section contains the clinical notes associated to the Encounter. Date/Time Encounter Note(s) Provider Source October 17, 2024 12:13 PM ADDENDUM: LOCAL TITLE: Addendum STANDARD TITLE: ADDENDUM DATE OF NOTE: OCTOBER 17, 2024@12:13:01 ENTRY DATE: OCTOBER 17, 2024@12:13:01 AUTHOR: DIEGO DANIEL EXP COSIGNER: URGENCY: STATUS: COMPLETED Most recent ICD shock was >1 year ago (08/2023). Will cc device clinic to confirm (no f/u scheduled). If patient has not had any recent ICD shocks, no driving restrictions from cardiology standpoint. /reed/ Diego Daniel PA-C Cardiology Physician Service Advisor Signed: 10/17/2024 12:15 Receipt Acknowledged By: 10/19/2024 15:07 /reed/ JW FRANKLIN GASOLINE ENGINE INSPECTOR 10/18/2024 15:09 /reed/ Robyn Ruffin,RN,BSN Registered Nurse --- Original Document --- 09/05/24 CARDIOLOGY OUTPATIENT FOLLOW UP [facility]: [facility]: FOLLOW-UP VISIT NOTE PRINCIPAL AND SECONDARY DIAGNOSES: # HFrEF - TTE 11/2021 35-40% - s/p PPM 11/2012 --> upgrade to TRAUMA DIRECTOR-D 03/2022 # CAD - s/p ESE x 2 to RCA in 09/2013 - C 06/12/2020 showed severe LAD and moderate LCX/OM and RCA disease, s/p successful PCI of proximal and mid LAD - s/p CABG x3 (ABBOTT->LAD, Left radial artery to OM and SVG to PDA) at [facility] with Dr. Bernstein on 10/21/2023 # H/o CHB s/p permanent pacemaker 12/10/2012, upgrade to TRAUMA DIRECTOR-D in 03/2022 # H/O Hyperkalemia # HTN # Type I diabetes since age 37 yrs # Mild JARRED CARE TEAM: 1. DEVIN CARTER N INTERVAL HISTORY: Mr. Soto is a 79 y/o [place] with PMH which includes CAD s/p ESE x 2 to RCA 10/13/2013 (LHC in 09/2013 showed 40-50% LCX, patent stent to OM, 30-40% lesion distal to stent in OM, ostial diag lesion 40%, with tandem 60-70% lesions), HFrEF s/p TRAUMA DIRECTOR-D, h/o complete heart block s/p pacemaker in 12/10/2012, h/o acute pericarditis (now resolved), at age 37 which led to the diagnosis of type I diabetes, HTN, and HLD. He had a shock for ventricular fibrillation during exertional exercise in 09/17/2023. Seen by Dr. Douglas 10/06/2023. The electrograms were reviewed by Dr. Douglas and consistent with sudden fine ventricular fibrillation, and given the clinical scenario during exertion is most likely consistent with ischemia. He had LHC which showed severe distal LM CAD. He then underwent CABG x3 (ABBOTT-> LAD, Left radial artery to OM and SVG to PDA) at [facility] with Dr. Bernstein on 10/21/2023. Last clinic visit 04/06/2024. No interim ED visits or hospitalizations for cardiac issues. He had pharmacologic stress test 05/11/2024 that was negative for stress-induced ischemia. TODAY: He reports that he is overall doing well. He continues to be quite active and walks 3 miles a day. He states that restarting imdur has helped his symptoms. Denies chest pain, chest tigtness, shortness of breath, palpitations. Home BPs are in the 100s, but occasionally he has had a few SBPs in the high 80s. No dizziness/LH or syncope. Denies leg swelling, orthopnea, PND. No recent nitro use. Of note, a 12 point review of systems was performed; all other review of systems negative, except as listed in the interval history. PAST MEDICAL HISTORY: 1) Kidney stone (SNOMED CT 14946015) 2) Mixed hyperlipidemia (SNOMED CT 082385116) 3) Permanent cardiac pacemaker (SNOMED CT 192543022909583) 4) Elevated Liver Function Tests 5) Benign essential hypertension 6) Coronary artery disease 7) Hyperlipidemia 8) Elevated PSA 9) Peripheral vascular disease 10) Diabetes mellitus type 1 11) Hypoglycaemia 12) Congestive heart failure 13) Pneumonia 14) Neuropathy 15) Closed extraarticular fracture of distal radius 16) Exposure to potentially hazardous substance 17) Bilateral senile combined form cataracts of eyes 18) Lumbar radiculopathy 19) History of coronary artery bypass grafting 20) Impacted cerumen of bilateral ears SOCIAL HISTORY: lives with Arley alcohol: rarely tobacco: never smoker illicit drugs: none ALLERGIES: CIPROFLOXACIN, LISINOPRIL CURRENT OUTPATIENT MEDICATIONS: Active Outpatient Medications (including Supplies): Active Outpatient Medications Status 1) ATORVASTATIN CALCIUM 80MG TAB TAKE ONE TABLET BY MOUTH EVERY ACTIVE EVENING FOR CHOLESTEROL. REPORT ANY UNEXPLAINED MUSCLE PAIN/WEAKNESS TO PROVIDER. Indication: FOR HIGH CHOLESTEROL 2) GABAPENTIN 300MG CAP TAKE ONE CAPSULE BY MOUTH THREE TIMES A ACTIVE DAY FOR PAIN Indication: FOR NERVE PAIN 3) GLUCOSE SENSOR DEXCOM G6 USE 1 SENSOR UNDER THE SKIN EVERY ACTIVE 10 DAYS TO MONITOR GLUCOSE READINGS 4) INSULIN,ASPART(EQV-NOVLG)100 UN/ML FLXPEN INJECT 25 UNITS ACTIVE UNDER THE SKIN THREE TIMES A DAY BEFORE MEALS ADMINISTER 10 MINUTES BEFORE FOOD DIRECTED. REFRIGERATE UN-OPENED PENS. DISCARD CARTRIDGE 28 DAYS AFTER OPENING. USES UP TO 100 UNITS THROUGHOUT THE DAY Indication: FOR DIABETES 5) INSULIN,GLARGINE 100 UNT/ML 3ML SOLOSTAR INJECT 46 UNITS ACTIVE UNDER THE SKIN ONCE A DAY ADMINISTER AT SAME TIME EACH DAY DIRECTED. DISCARD ANY OPEN CARTRIDGE AFTER 28 DAYS. Indication: FOR DIABETES 6) ISOSORBIDE MONONITRATE 30MG SA TAB TAKE ONE TABLET BY MOUTH ACTIVE ONCE A DAY TAKE ON EMPTY STOMACH. SWALLOW WHOLE. DO NOT CRUSH OR CHEW. Indication: FOR CHEST PAIN 7) METOPROLOL SUCCINATE 25MG SA TAB TAKE ONE-HALF TABLET BY ACTIVE MOUTH ONCE A DAY SWALLOW WHOLE, DO NOT CRUSH OR CHEW (TABLETS MAY BE CUT IN HALF). Indication: FOR MYOCARDIAL INFARCTION 8) NEEDLE,PEN 31G,5MM USE 1 NEEDLE UNDER THE SKIN 5 TIMES A DAY ACTIVE Indication: FOR INJECTION ON INSULIN 9) ORACIT SOLN TAKE 15 ML BY MOUTH TWICE A DAY (MIX WITH 4 ACTIVE OUNCES OF WATER PRIOR TO DRINKING) Indication: FOR PREVENTION OF KIDNEY STONES 10) TAMSULOSIN HCL 0.4MG CAP TAKE ONE CAPSULE BY MOUTH EVERY ACTIVE EVENING APPROXIMATELY 30 MINUTES AFTER THE SAME MEAL EACH DAY Indication: FOR BENIGN PROSTATIC HYPERPLASIA Active Non-VA Medications Status 1) Non-VA ASPIRIN 81MG EC TAB 81MG BY MOUTH ONCE A DAY ACTIVE Indication: FOR CARDIOVASCULAR DISEASE 2) Non-VA CHOLECALCIF 50MCG (D3-2,000UNIT) TAB 50MCG BY MOUTH ACTIVE ONCE A DAY Indication: FOR VITAMIN D DEFICIENCY 3) Non-VA CITALOPRAM HYDROBROMIDE 40MG TAB 20MG BY MOUTH EVERY ACTIVE MORNING Indication: FOR DEPRESSION 4) Non-VA PANTOPRAZOLE NA 40MG EC TAB 40MG BY MOUTH EVERY ACTIVE MORNING BEFORE A MEAL Indication: FOR GASTROESOPHAGEAL REFLUX DISEASE 14 Total Medications - All cardiac medications were reconciled during the visit. asa 81 metop XL 12.5 imdur 30 atorva 80 PHYSICAL EXAM: Date Vital Measurement Qualifiers 09/05/2024 13:38 Temp F (C) 97.7 (36.5) Pulse 88 Respir 16 BP 103/64 Wt lbs (kg)[BMI] 194.9 (88.41)[28*] Pain 0 POx (L/Min)(%) 95 GENERAL: Sclera anicteric, PERRLA, MMM NECK: Carotids were brisk without bruits. CHEST/LUNGS: Clear to auscultation bilaterally with no rales or wheezes. Good respiratory effort and excursion. HEART: S1 S2, RRR, no JVP ABDOMEN: Soft, nontender, BS positive x 4 quadrants EXTREMITIES: No lower extremity edema. Pedal pulses intact bilaterally NEUROLOGICAL: Alert and oriented x 3. Normal motor strength. PSYCHIATRIC: Mood and affect appropriate DIAGNOSTIC DATA: ###. PHARMACOLOGIC STRESS TEST 05/11/2024 1. 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 No evidence of reversibility to indicate stress-induced ischemia. 2. Moderate global hypokinesis with calculated LVEF of 34%. 3. Dilated left ventricle. ###. ECHOCARDIOGRAM: TTE 10/16/2023 1. Global systolic function: Overall left ventricular systolic function is mildly impaired with an estimated ejection fraction of 45 - 50%. 2. Regional systolic function: Wall motion: Hypokinesis in midapical anterior, mid-anterolateral and apical portion of LV haney. The remaining left ventricular segments contract normally. 3. Mild diastolic dysfunction (grade I) with normal left atrial filling pressure. 4. Normal right ventricular systolic function. 5. The left atrium is mildly enlarged. 6. Mild aortic regurgitation. 7. No other hemodynamically significant valvular abnormality. 8. As compared with the previous echocardiogram done on 12/11/21, LVEF is improved. TTE 12/11/2021 1. Severe left ventricular enlargement. 2. Global systolic function: Overall left ventricular systolic function is moderately impaired with an estimated ejection fraction of 35 - 40%. 3. Regional systolic function: Wall motion: Global hypokinesis with worse hypokinesis in the apical segments. 4. Diastolic function: Mitral inflow pattern and tissue Doppler is consistent with LV diastolic dysfunction (grade I) and normal left atrial filling pressure. 5. The right ventricular size is normal. Normal right ventricular systolic function. 6. The left atrium is mildly enlarged. 7. The right atrial size is normal. 8. Electronic pacemaker lead seen in the right atrial and right ventricular cavity. 9. Mild aortic regurgitation. 10. Mild mitral regurgitation. 11. No other hemodynamically significant valvular abnormality. 12. Pulmonary pressures are within normal limits. 13. As compared to the previous echocardiogram done on 10/01/2020, LVEF has worsened. TTE 04/2019 showed EF 30-35% with severe hypokinesis in apical septum, apical cap, apical lateral wall, apical anterior wall, apical inferior wall and proximal to mid lateral haney, mild diastolic dysfunction, normal RV systolic dysfunction(note HR 45-55/m and paced). 07/2019 TTE showed EF 39% with hypokinetic LV apex. ###. ECG: -The ECG was personally reviewed, with findings of: AV dual paced rhythm at 50 bpm ###. CARDIAC CATH: [facility] 10/15/2023 LEFT HEART CATHETERIZATION LV Systolic (mmHg): 126, EDP (mmHg): 16 Mild Aortic valve stenosis CORONARY ANGIOGRAPHY [place] Vessels Summary: 2 vessel CAD Dominance: Right dominant Stenoses Details Segment Stenosis Length Characteristics and Comments Left Main Large caliber vessel which trifurcates into LAD, LCx, and Ramus Intermedius. Distal left main has an eccentric 70-90% stenosis. LAD (overall) Medium caliber vessel which gives off one bifurcating diagonal and several septals and wraps around the apex. Proximal LAD has a stent which is has an area of 25-50% stenosis due to under-expansion unchanged from prior. Apical LAD has 70-90% disease. Ramus Intermedius Small caliber vessel, diffuse moderate disease CIRCUMFLEX (overall) Non-dominant, medium caliber vessel which gives off one small high OM and a second larger OM, and a third large OM and tapers in the left AV groove. Ostial LCx has 25- 50% stenosis, mid LCx has 50-70% stenosis between OM2 and OM3. OM2 has a proximal stent which is widely patent with a focal 50-70% stenosis beyond. OM3 has a widely patent stent. RCA (overall) Dominant, medium caliber vessel which gives rise to PDA and PL branches distally. There is stent in the mid RCA which is widely patent, and a stent in distal RCA which is widely patent. There is a focal 50-70% stenosis in distal RCA just before the distal stent. The PDA has moderate to severe diffuse disease. The diagonal vessel has diffuse moderate disease. PROCEDURE SUMMARY -Severe distal left main coronary artery disease -Patent stents in LAD, OM2, OM3, RCA -Unchanged moderate to severe disease in PDA and apical LAD RECOMMENDATIONS -Refer to cardiothoracic surgery for evaluation of coronary artery bypass grafting [facility] on 06/12/2020 -severe LAD and moderate LCX/OM and RCA disease. He underwent successful PCI of proximal and mid LAD. ###. ICD: s/p PPM 11/2012 --> upgrade to TRAUMA DIRECTOR-D 03/2022 ###. Current NYHA Class: I ###. LABORATORIES: COMPREHENSIVE METABOLIC PANEL SODIUM 141 mEq/L 04/06/2024 11:43 POTASSIUM 4.9 mEq/L 04/06/2024 11:43 CHLORIDE 106 mEq/L 04/06/2024 11:43 UREA NITROGEN 20.0 mg/dL 04/06/2024 11:43 CREATININE 1.12 mg/dL 04/06/2024 11:43 CALCIUM 9.5 mg/dL 04/06/2024 11:43 PROTEIN 7.1 g/dL 04/06/2024 11:43 ALBUMIN 4.2 g/dL 04/06/2024 11:43 ALKALINE PHOSPHATASE 157 H U/L 04/06/2024 11:43 ALT/SGPT 20 U/L 04/06/2024 11:43 AST/SGOT 26 U/L 04/06/2024 11:43 TOTAL BILIRUBIN 1.6 H mg/dL 04/06/2024 11:43 CARBON DIOXIDE 23 mEq/L 04/06/2024 11:43 GLUCOSE 127 H mg/dL 04/06/2024 11:43 EGFR (CKD-EPI 2020) 68.1 04/06/2024 11:43 COMPLETE BLOOD COUNT WBC 5.9 10*3/uL 02/08/2024 08:28 RBC 5.57 10*6/uL 02/08/2024 08:28 HGB 15.5 g/dL 02/08/2024 08:28 HCT 48.9 H % 02/08/2024 08:28 MCV 87.8 fL 02/08/2024 08:28 MCH 27.8 pg 02/08/2024 08:28 MCHC 31.7 L g/dL 02/08/2024 08:28 RDW 14.6 % 02/08/2024 08:28 PLT 142 L 10*3/uL 02/08/2024 08:28 MPV 11.5 H fL 02/08/2024 08:28 NEUTROPHILS, AUTO % 67 % 02/08/2024 08:28 LYMPHOCYTES, AUTO % 21 % 02/08/2024 08:28 MONOCYTES, AUTO % 10 % 02/08/2024 08:28 EOSINOPHILS, AUTO % 2 % 02/08/2024 08:28 BASOPHILS, AUTO % 1 % 02/08/2024 08:28 NEUTROPHILS, ABSOLUTE 3.95 10*3/uL 02/08/2024 08:28 LYMPHOCYTES, ABSOLUTE 1.22 10*3/uL 02/08/2024 08:28 MONOCYTES, ABSOLUTE 0.61 10*3/uL 02/08/2024 08:28 EOSINOPHILS, ABSOLUTE 0.10 10*3/uL 02/08/2024 08:28 BASOPHILS, ABSOLUTE 0.03 10*3/uL 02/08/2024 08:28 IMMATURE PLT FRACTION 3.4 % 02/08/2024 08:28 COAGULATION STUDIES INR VALUE 1.0 INR 10/15/2023 06:20 PROTIME 10.9 sec 10/15/2023 06:20 No PTT EO data found HGA1C: HGA1C 6.7 H % 04/06/2024 11:43 LIPIDS TRIGLYCERIDE 101 mg/dL 04/06/2024 11:43 CHOLESTEROL 145 mg/dL 04/06/2024 11:43 HDL(New) 41 mg/dL 04/06/2024 11:43 CALCULATED LDL 84 mg/dL 04/06/2024 11:43 CARDIAC BIOMARKERS Trop: TROPONIN I 0.032 ng/mL 02/08/2024 11:12 BNP: BRAIN NATRIURETIC PEPTIDE 196.3 H pg/mL 02/08/2024 08:28 ASSESSMENT AND PLAN: Mr. Soto is a 79 y/o with PMH which includes CAD s/p PCI, HFrEF s/p TRAUMA DIRECTOR-D, h/o complete heart block s/p pacemaker in 12/10/2012, h/o acute pericarditis (now resolved) at age 37 which led to the diagnosis of type I diabetes, HTN, and HLD. He appears euvolemic today, NYHA Class I. BARRIERS TO CARE AND CANDIDACY FOR ADVANCED THERAPIES: - age # HFrEF (likely non-ischemic) with upgrade to TRAUMA DIRECTOR-D 03/2022: - fluctuating EF, most recent TTE 09/2023 EF 45-50% - continue GDMT: no SGLT2i (type 1 DM) metop XL 12.5mg daily losartan previously dc'd d/t symptomatic hypotension has not tolerated MRA d/t hyperkalemia - lasix 20mg prn, has not needed for months - encouraged daily am weights, VS trending, salt restriction, exercise #. Vfib - s/p ICD shock 09/17/2023 - followed by EP Dr. Douglas # CAD - s/p ESE x 2 to RCA in 09/2013 - [facility] 06/12/2020 showed severe LAD and moderate LCX/OM and RCA disease, s/p successful PCI of proximal and mid LAD - CABG x3 (ABBOTT->LAD, Left radial artery to OM and SVG to PDA) at [facility] with Dr. Bernstein on 10/21/2023 - pharmacologic stress test 05/11/2024: no stress-induced ischemia - atorvastatin 20mg daily - asa 81mg daily - sl tng, reinstructed on use - recommend heart healthy diet # H/o CHB s/p permanent pacemaker 12/10/2012, upgrade to TRAUMA DIRECTOR-D in 03/2022 - device followed in EP clinic # H/O Hyperkalemia - has not tolerated MRA # HTN - mediacation as above - encouraged home BP monitoring - instructed to notify us if SBP <100 or LH/dizziness # Type I diabetes since age 37 yrs - followed by endocrinology # Mild JARRED - RDI 9.5/AHI 7.7, but severe in supine position from PSG 07/2016 - he does not wear CPAP, he declines repeat PSG # Dispo - RTC 6 months Thank you for allowing us to participate in this [facility]. Please do not hesitate to call the HF team with any questions or concerns. /reed/ Diego Daniel PA-C Cardiology Physician Service Advisor Signed: 09/05/2024 19:53 Receipt Acknowledged By: 09/06/2024 13:30 /ankit HIGGINS MD, PhD 09/06/2024 ADDENDUM STATUS: COMPLETED I have reviewed the note by Fredy DELUCA and have no further recommendations. /reed/ VICKI HIGGINS MD, PhD Signed: 09/06/2024 13:30 10/12/2024 ADDENDUM STATUS: COMPLETED Received form from [place] Office of transcript evaluator, [employer] safety Department. To complete medical report for conditions that may impair Driving safely. Please provide your assessment regarding [employer] safely. alerting Cardiology VICKI HIGGINS. /reed/ Devin Carter MD. Staff Physcian. Signed: 10/12/2024 16:48 Receipt Acknowledged By: 10/17/2024 08:55 /ankit HIGGINS MD, PhD 10/17/2024 ADDENDUM STATUS: COMPLETED Diego do you see any issues with him driving? /reed/ VICKI HIGGINS MD, PhD Signed: 10/17/2024 08:56 Receipt Acknowledged By: 10/17/2024 17:08 /reed/ Devin Carter MD. Staff Physcian. 10/17/2024 12:09 /reed/ Diego Daniel PA-C Cardiology Physician Service Advisor DIEGO DANIEL [facility] October 17, 2024 08:56 AM ADDENDUM: LOCAL TITLE: Addendum STANDARD TITLE: ADDENDUM DATE OF NOTE: OCTOBER 17, 2024@08:56:17 ENTRY DATE: OCTOBER 17, 2024@08:56:18 AUTHOR: VICKI HIGGINS EXP COSIGNER: URGENCY: STATUS: COMPLETED Diego do you see any issues with him driving? /es/ VICKI HIGGINS MD, PhD Signed: 10/17/2024 08:56 Receipt Acknowledged By: 10/17/2024 17:08 /es/ Devin Carter MD. Staff [facility]. 10/17/2024 12:09 /es/ Diego Daniel PA-C Cardiology Physician Service Advisor --- Original Document --- 09/05/24 CARDIOLOGY OUTPATIENT FOLLOW UP [facility]: [place] [facility] FAILURE SERVICE: FOLLOW-UP VISIT NOTE PRINCIPAL AND SECONDARY DIAGNOSES: # HFrEF - TTE 11/2021 35-40% - s/p PPM 11/2012 --> upgrade to TRAUMA DIRECTOR-D 03/2022 # CAD - s/p ESE x 2 to RCA in 09/2013 - C 06/12/2020 showed severe LAD and moderate LCX/OM and RCA disease, s/p successful PCI of proximal and mid LAD - s/p CABG x3 (ABBOTT->LAD, Left radial artery to OM and SVG to PDA) at [facility] with Dr. Bernstein on 10/21/2023 # H/o CHB s/p permanent pacemaker 12/10/2012, upgrade to TRAUMA DIRECTOR-D in 03/2022 # H/O Hyperkalemia # HTN # Type I diabetes since age 37 yrs # Mild JARRED CARE TEAM: 1. DEVIN CARTER N INTERVAL HISTORY: Mr. Soto is a 79 y/o with PMH which includes CAD s/p ESE x 2 to RCA 10/13/2013 (LHC in 09/2013 showed 40-50% LCX, patent stent to OM, 30-40% lesion distal to stent in OM, ostial diag lesion 40%, with tandem 60-70% lesions), HFrEF s/p TRAUMA DIRECTOR-D, h/o complete heart block s/p pacemaker in 12/10/2012, h/o acute pericarditis (now resolved), at age 37 which led to the diagnosis of type I diabetes, HTN, and HLD. He had a shock for ventricular fibrillation during exertional exercise in 09/17/2023. Seen by Dr. Douglas 10/06/2023. The electrograms were reviewed by Dr. Douglas and consistent with sudden fine ventricular fibrillation, and given the clinical scenario during exertion is most likely consistent with ischemia. He had LHC which showed severe distal LM CAD. He then underwent CABG x3 (ABBOTT-> LAD, Left radial artery to OM and SVG to PDA) at [facility] with Dr. Bernstein on 10/21/2023. Last clinic visit 04/06/2024. No interim ED visits or hospitalizations for cardiac issues. He had pharmacologic stress test 05/11/2024 that was negative for stress-induced ischemia. TODAY: He reports that he is overall doing well. He continues to be quite active and walks 3 miles a day. He states that restarting imdur has helped his symptoms. Denies chest pain, chest tigtness, shortness of breath, palpitations. Home BPs are in the 100s, but occasionally he has had a few SBPs in the high 80s. No dizziness/LH or syncope. Denies leg swelling, orthopnea, PND. No recent nitro use. Of note, a 12 point review of systems was performed; all other review of systems negative, except as listed in the interval history. PAST MEDICAL HISTORY: 1) Kidney stone (SNOMED CT 46305513) 2) Mixed hyperlipidemia (SNOMED CT 601523461) 3) Permanent cardiac pacemaker (SNOMED CT [id number]) 4) Elevated Liver Function Tests 5) Benign essential hypertension 6) Coronary artery disease 7) Hyperlipidemia 8) Elevated PSA 9) Peripheral vascular disease 10) Diabetes mellitus type 1 11) Hypoglycaemia 12) Congestive heart failure 13) Pneumonia 14) Neuropathy 15) Closed extraarticular fracture of distal radius 16) Exposure to potentially hazardous substance 17) Bilateral senile combined form cataracts of eyes 18) Lumbar radiculopathy 19) History of coronary artery bypass grafting 20) Impacted cerumen of bilateral ears SOCIAL HISTORY: lives with Arley alcohol: rarely tobacco: never smoker illicit drugs: none ALLERGIES: CIPROFLOXACIN, LISINOPRIL CURRENT OUTPATIENT MEDICATIONS: Active Outpatient Medications (including Supplies): Active Outpatient Medications Status 1) ATORVASTATIN CALCIUM 80MG TAB TAKE ONE TABLET BY MOUTH EVERY ACTIVE EVENING FOR CHOLESTEROL. REPORT ANY UNEXPLAINED MUSCLE PAIN/WEAKNESS TO PROVIDER. Indication: FOR HIGH CHOLESTEROL 2) GABAPENTIN 300MG CAP TAKE ONE CAPSULE BY MOUTH THREE TIMES A ACTIVE DAY FOR PAIN Indication: FOR NERVE PAIN 3) GLUCOSE SENSOR DEXCOM G6 USE 1 SENSOR UNDER THE SKIN EVERY ACTIVE 10 DAYS TO MONITOR GLUCOSE READINGS 4) INSULIN,ASPART(EQV-NOVLG)100 UN/ML FLXPEN INJECT 25 UNITS ACTIVE UNDER THE SKIN THREE TIMES A DAY BEFORE MEALS ADMINISTER 10 MINUTES BEFORE FOOD DIRECTED. REFRIGERATE UN-OPENED PENS. DISCARD CARTRIDGE 28 DAYS AFTER OPENING. USES UP TO 100 UNITS THROUGHOUT THE DAY Indication: FOR DIABETES 5) INSULIN,GLARGINE 100 UNT/ML 3ML SOLOSTAR INJECT 46 UNITS ACTIVE UNDER THE SKIN ONCE A DAY ADMINISTER AT SAME TIME EACH DAY DIRECTED. DISCARD ANY OPEN CARTRIDGE AFTER 28 DAYS. Indication: FOR DIABETES 6) ISOSORBIDE MONONITRATE 30MG SA TAB TAKE ONE TABLET BY MOUTH ACTIVE ONCE A DAY TAKE ON EMPTY STOMACH. SWALLOW WHOLE. DO NOT CRUSH OR CHEW. Indication: FOR CHEST PAIN 7) METOPROLOL SUCCINATE 25MG SA TAB TAKE ONE-HALF TABLET BY ACTIVE MOUTH ONCE A DAY SWALLOW WHOLE, DO NOT CRUSH OR CHEW (TABLETS MAY BE CUT IN HALF). Indication: FOR MYOCARDIAL INFARCTION 8) NEEDLE,PEN 31G,5MM USE 1 NEEDLE UNDER THE SKIN 5 TIMES A DAY ACTIVE Indication: FOR INJECTION ON INSULIN 9) ORACIT SOLN TAKE 15 ML BY MOUTH TWICE A DAY (MIX WITH 4 ACTIVE OUNCES OF WATER PRIOR TO DRINKING) Indication: FOR PREVENTION OF KIDNEY STONES 10) TAMSULOSIN HCL 0.4MG CAP TAKE ONE CAPSULE BY MOUTH EVERY ACTIVE EVENING APPROXIMATELY 30 MINUTES AFTER THE SAME MEAL EACH DAY Indication: FOR BENIGN PROSTATIC HYPERPLASIA Active Non-VA Medications Status 1) Non-VA ASPIRIN 81MG EC TAB 81MG BY MOUTH ONCE A DAY ACTIVE Indication: FOR CARDIOVASCULAR DISEASE 2) Non-VA CHOLECALCIF 50MCG (D3-2,000UNIT) TAB 50MCG BY MOUTH ACTIVE ONCE A DAY Indication: FOR VITAMIN D DEFICIENCY 3) Non-VA CITALOPRAM HYDROBROMIDE 40MG TAB 20MG BY MOUTH EVERY ACTIVE MORNING Indication: FOR DEPRESSION 4) Non-VA PANTOPRAZOLE NA 40MG EC TAB 40MG BY MOUTH EVERY ACTIVE MORNING BEFORE A MEAL Indication: FOR GASTROESOPHAGEAL REFLUX DISEASE 14 Total Medications - All cardiac medications were reconciled during the visit. asa 81 metop XL 12.5 imdur 30 atorva 80 PHYSICAL EXAM: Date Vital Measurement Qualifiers 09/05/2024 13:38 Temp F (C) 97.7 (36.5) Pulse 88 Respir 16 BP 103/64 Wt lbs (kg)[BMI] 194.9 (88.41)[28*] Pain 0 POx (L/Min)(%) 95 GENERAL: Sclera anicteric, PERRLA, MMM NECK: Carotids were brisk without bruits. CHEST/LUNGS: Clear to auscultation bilaterally with no rales or wheezes. Good respiratory effort and excursion. HEART: S1 S2, RRR, no JVP ABDOMEN: Soft, nontender, BS positive x 4 quadrants EXTREMITIES: No lower extremity edema. Pedal pulses intact bilaterally NEUROLOGICAL: Alert and oriented x 3. Normal motor strength. PSYCHIATRIC: Mood and affect appropriate DIAGNOSTIC DATA: ###. PHARMACOLOGIC STRESS TEST 05/11/2024 1. 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 No evidence of reversibility to indicate stress-induced ischemia. 2. Moderate global hypokinesis with calculated LVEF of 34%. 3. Dilated left ventricle. ###. ECHOCARDIOGRAM: TTE 10/16/2023 1. Global systolic function: Overall left ventricular systolic function is mildly impaired with an estimated ejection fraction of 45 - 50%. 2. Regional systolic function: Wall motion: Hypokinesis in midapical anterior, mid-anterolateral and apical portion of LV haney. The remaining left ventricular segments contract normally. 3. Mild diastolic dysfunction (grade I) with normal left atrial filling pressure. 4. Normal right ventricular systolic function. 5. The left atrium is mildly enlarged. 6. Mild aortic regurgitation. 7. No other hemodynamically significant valvular abnormality. 8. As compared with the previous echocardiogram done on 12/11/21, LVEF is improved. TTE 12/11/2021 1. Severe left ventricular enlargement. 2. Global systolic function: Overall left ventricular systolic function is moderately impaired with an estimated ejection fraction of 35 - 40%. 3. Regional systolic function: Wall motion: Global hypokinesis with worse hypokinesis in the apical segments. 4. Diastolic function: Mitral inflow pattern and tissue Doppler is consistent with LV diastolic dysfunction (grade I) and normal left atrial filling pressure. 5. The right ventricular size is normal. Normal right ventricular systolic function. 6. The left atrium is mildly enlarged. 7. The right atrial size is normal. 8. Electronic pacemaker lead seen in the right atrial and right ventricular cavity. 9. Mild aortic regurgitation. 10. Mild mitral regurgitation. 11. No other hemodynamically significant valvular abnormality. 12. Pulmonary pressures are within normal limits. 13. As compared to the previous echocardiogram done on 10/01/2020, LVEF has worsened. TTE 04/2019 showed EF 30-35% with severe hypokinesis in apical septum, apical cap, apical lateral wall, apical anterior wall, apical inferior wall and proximal to mid lateral haney, mild diastolic dysfunction, normal RV systolic dysfunction(note HR 45-55/m and paced). 07/2019 TTE showed EF 39% with hypokinetic LV apex. ###. ECG: -The ECG was personally reviewed, with findings of: AV dual paced rhythm at 50 bpm ###. CARDIAC CATH: [facility] 10/15/2023 LEFT HEART CATHETERIZATION LV Systolic (mmHg): 126, EDP (mmHg): 16 Mild Aortic valve stenosis CORONARY ANGIOGRAPHY [place] Vessels Summary: 2 vessel CAD Dominance: Right dominant Stenoses Details Segment Stenosis Length Characteristics and Comments Left Main Large caliber vessel which trifurcates into LAD, LCx, and Ramus Intermedius. Distal left main has an eccentric 70-90% stenosis. LAD (overall) Medium caliber vessel which gives off one bifurcating diagonal and several septals and wraps around the apex. Proximal LAD has a stent which is has an area of 25-50% stenosis due to under-expansion unchanged from prior. Apical LAD has 70-90% disease. Ramus Intermedius Small caliber vessel, diffuse moderate disease CIRCUMFLEX (overall) Non-dominant, medium caliber vessel which gives off one small high OM and a second larger OM, and a third large OM and tapers in the left AV groove. Ostial LCx has 25- 50% stenosis, mid LCx has 50-70% stenosis between OM2 and OM3. OM2 has a proximal stent which is widely patent with a focal 50-70% stenosis beyond. OM3 has a widely patent stent. RCA (overall) Dominant, medium caliber vessel which gives rise to PDA and PL branches distally. There is stent in the mid RCA which is widely patent, and a stent in distal RCA which is widely patent. There is a focal 50-70% stenosis in distal RCA just before the distal stent. The PDA has moderate to severe diffuse disease. The diagonal vessel has diffuse moderate disease. PROCEDURE SUMMARY -Severe distal left main coronary artery disease -Patent stents in LAD, OM2, OM3, RCA -Unchanged moderate to severe disease in PDA and apical LAD RECOMMENDATIONS -Refer to cardiothoracic surgery for evaluation of coronary artery bypass grafting [facility] on 06/12/2020 -severe LAD and moderate LCX/OM and RCA disease. He underwent successful PCI of proximal and mid LAD. ###. ICD: s/p PPM 11/2012 --> upgrade to TRAUMA DIRECTOR-D 03/2022 ###. Current NYHA Class: I ###. LABORATORIES: COMPREHENSIVE METABOLIC PANEL SODIUM 141 mEq/L 04/06/2024 11:43 POTASSIUM 4.9 mEq/L 04/06/2024 11:43 CHLORIDE 106 mEq/L 04/06/2024 11:43 UREA NITROGEN 20.0 mg/dL 04/06/2024 11:43 CREATININE 1.12 mg/dL 04/06/2024 11:43 CALCIUM 9.5 mg/dL 04/06/2024 11:43 PROTEIN 7.1 g/dL 04/06/2024 11:43 ALBUMIN 4.2 g/dL 04/06/2024 11:43 ALKALINE PHOSPHATASE 157 H U/L 04/06/2024 11:43 ALT/SGPT 20 U/L 04/06/2024 11:43 AST/SGOT 26 U/L 04/06/2024 11:43 TOTAL BILIRUBIN 1.6 H mg/dL 04/06/2024 11:43 CARBON DIOXIDE 23 mEq/L 04/06/2024 11:43 GLUCOSE 127 H mg/dL 04/06/2024 11:43 EGFR (CKD-EPI 2020) 68.1 04/06/2024 11:43 COMPLETE BLOOD COUNT WBC 5.9 10*3/uL 02/08/2024 08:28 RBC 5.57 10*6/uL 02/08/2024 08:28 HGB 15.5 g/dL 02/08/2024 08:28 HCT 48.9 H % 02/08/2024 08:28 MCV 87.8 fL 02/08/2024 08:28 MCH 27.8 pg 02/08/2024 08:28 MCHC 31.7 L g/dL 02/08/2024 08:28 RDW 14.6 % 02/08/2024 08:28 PLT 142 L 10*3/uL 02/08/2024 08:28 MPV 11.5 H fL 02/08/2024 08:28 NEUTROPHILS, AUTO % 67 % 02/08/2024 08:28 LYMPHOCYTES, AUTO % 21 % 02/08/2024 08:28 MONOCYTES, AUTO % 10 % 02/08/2024 08:28 EOSINOPHILS, AUTO % 2 % 02/08/2024 08:28 BASOPHILS, AUTO % 1 % 02/08/2024 08:28 NEUTROPHILS, ABSOLUTE 3.95 10*3/uL 02/08/2024 08:28 LYMPHOCYTES, ABSOLUTE 1.22 10*3/uL 02/08/2024 08:28 MONOCYTES, ABSOLUTE 0.61 10*3/uL 02/08/2024 08:28 EOSINOPHILS, ABSOLUTE 0.10 10*3/uL 02/08/2024 08:28 BASOPHILS, ABSOLUTE 0.03 10*3/uL 02/08/2024 08:28 IMMATURE PLT FRACTION 3.4 % 02/08/2024 08:28 COAGULATION STUDIES INR VALUE 1.0 INR 10/15/2023 06:20 PROTIME 10.9 sec 10/15/2023 06:20 No PTT EO data found HGA1C: HGA1C 6.7 H % 04/06/2024 11:43 LIPIDS TRIGLYCERIDE 101 mg/dL 04/06/2024 11:43 CHOLESTEROL 145 mg/dL 04/06/2024 11:43 HDL(New) 41 mg/dL 04/06/2024 11:43 CALCULATED LDL 84 mg/dL 04/06/2024 11:43 CARDIAC BIOMARKERS Trop: TROPONIN I 0.032 ng/mL 02/08/2024 11:12 BNP: BRAIN NATRIURETIC PEPTIDE 196.3 H pg/mL 02/08/2024 08:28 ASSESSMENT AND PLAN: Mr. Soto is a 79 y/o [place] with PMH which includes CAD s/p PCI, HFrEF s/p TRAUMA DIRECTOR-D, h/o complete heart block s/p pacemaker in 12/10/2012, h/o acute pericarditis (now resolved) at age 37 which led to the diagnosis of type I diabetes, HTN, and HLD. He appears euvolemic today, NYHA Class I. BARRIERS TO CARE AND CANDIDACY FOR ADVANCED THERAPIES: - age # HFrEF (likely non-ischemic) with upgrade to TRAUMA DIRECTOR-D 03/2022: - fluctuating EF, most recent TTE 09/2023 EF 45-50% - continue GDMT: no SGLT2i (type 1 DM) metop XL 12.5mg daily losartan previously dc'd d/t symptomatic hypotension has not tolerated MRA d/t hyperkalemia - lasix 20mg prn, has not needed for months - encouraged daily am weights, VS trending, salt restriction, exercise #. Vfib - s/p ICD shock 09/17/2023 - followed by EP Dr. Douglas # CAD - s/p ESE x 2 to RCA in 09/2013 - LHC 06/12/2020 showed severe LAD and moderate LCX/OM and RCA disease, s/p successful PCI of proximal and mid LAD - CABG x3 (ABBOTT->LAD, Left radial artery to OM and SVG to PDA) at [facility] with Dr. Bernstein on 10/21/2023 - pharmacologic stress test 05/11/2024: no stress-induced ischemia - atorvastatin 20mg daily - asa 81mg daily - sl tng, reinstructed on use - recommend heart healthy diet # H/o CHB s/p permanent pacemaker 12/10/2012, upgrade to TRAUMA DIRECTOR-D in 03/2022 - device followed in EP clinic # H/O Hyperkalemia - has not tolerated MRA # HTN - mediacation as above - encouraged home BP monitoring - instructed to notify us if SBP <100 or LH/dizziness # Type I diabetes since age 37 yrs - followed by endocrinology # Mild JARRED - RDI 9.5/AHI 7.7, but severe in supine position from PSG 07/2016 - he does not wear CPAP, he declines repeat PSG # Dispo - RTC 6 months Thank you for allowing us to participate in this [facility]. Please do not hesitate to call the HF team with any questions or concerns. /reed/ CARITO DiasC Cardiology Physician Service Advisor Signed: 09/05/2024 19:53 Receipt Acknowledged By: 09/06/2024 13:30 /reed/ VICKI HIGGINS MD, PhD 09/06/2024 ADDENDUM STATUS: COMPLETED I have reviewed the note by Fredy DELUCA and have no further recommendations. /reed/ VICKI HIGGINS MD, PhD Signed: 09/06/2024 13:30 10/12/2024 ADDENDUM STATUS: COMPLETED Received form from [place] Office of transcript evaluator, [employer] safety Department. To complete medical report for conditions that may impair Driving safely. Please provide your assessment regarding [employer] safely. alerting Cardiology VICKI HIGGINS. /reed/ Devin Carter MD. Staff Physcian. Signed: 10/12/2024 16:48 Receipt Acknowledged By: 10/17/2024 08:55 /ankit HIGGINS MD, PhD 10/17/2024 ADDENDUM STATUS: COMPLETED Most recent ICD shock was >1 year ago (08/2023). Will cc device clinic to confirm (no f/u scheduled). If patient has not had any recent ICD shocks, no driving restrictions from cardiology standpoint. /es/ Diego Daniel PA-C Cardiology Physician Service Advisor Signed: 10/17/2024 12:15 Receipt Acknowledged By: * AWAITING SIGNATURE * JW FRANKLIN * AWAITING SIGNATURE * ROBYN RUFFIN ALI [facility] October 12, 2024 04:45 PM ADDENDUM: LOCAL TITLE: Addendum STANDARD TITLE: ADDENDUM DATE OF NOTE: OCTOBER 12, 2024@16:45:11 ENTRY DATE: OCTOBER 12, 2024@16:45:12 AUTHOR: DEVIN CARTER EXP COSIGNER: URGENCY: STATUS: COMPLETED Received form from [place] Office of transcript evaluator, [employer] safety Department. To complete medical report for conditions that may impair Driving safely. Please provide your assessment regarding [employer] safely. alerting Cardiology VICKI HIGGINS. /reed/ Devin Carter MD. Staff Physcian. Signed: 10/12/2024 16:48 Receipt Acknowledged By: 10/17/2024 08:55 /reed/ VICKI HIGGINS MD, PhD --- Original Document --- 09/05/24 CARDIOLOGY OUTPATIENT FOLLOW UP [facility]: [facility] FAIL[facility] SERVICE: FOLLOW-UP VISIT NOTE PRINCIPAL AND SECONDARY DIAGNOSES: # HFrEF - TTE 11/2021 35-40% - s/p PPM 11/2012 --> upgrade to TRAUMA DIRECTOR-D 03/2022 # CAD - s/p ESE x 2 to RCA in 09/2013 - [facility] 06/12/2020 showed severe LAD and moderate LCX/OM and RCA disease, s/p successful PCI of proximal and mid LAD - s/p CABG x3 (ABBOTT->LAD, Left radial artery to OM and SVG to PDA) at [facility] with Dr. Bernstein on 10/21/2023 # H/o CHB s/p permanent pacemaker 12/10/2012, upgrade to TRAUMA DIRECTOR-D in 03/2022 # H/O Hyperkalemia # HTN # Type I diabetes since age 37 yrs # Mild JARRED CARE TEAM: 1. DEVIN CARTER N INTERVAL HISTORY: Mr. Soto is a 79 y/o with PMH which includes CAD s/p ESE x 2 to RCA 10/13/2013 ([facility] in 09/2013 showed 40-50% LCX, patent stent to OM, 30-40% lesion distal to stent in OM, ostial diag lesion 40%, with tandem 60-70% lesions), HFrEF s/p TRAUMA DIRECTOR-D, h/o complete heart block s/p pacemaker in 12/10/2012, h/o acute pericarditis (now resolved), at age 37 which led to the diagnosis of type I diabetes, HTN, and HLD. He had a shock for ventricular fibrillation during exertional exercise in 09/17/2023. Seen by Dr. Douglas 10/06/2023. The electrograms were reviewed by Dr. Douglas and consistent with sudden fine ventricular fibrillation, and given the clinical scenario during exertion is most likely consistent with ischemia. He had LHC which showed severe distal LM CAD. He then underwent CABG x3 (ABBOTT-> LAD, Left radial artery to OM and SVG to PDA) at [facility] with Dr. Bernstein on 10/21/2023. Last clinic visit 04/06/2024. No interim ED visits or hospitalizations for cardiac issues. He had pharmacologic stress test 05/11/2024 that was negative for stress-induced ischemia. TODAY: He reports that he is overall doing well. He continues to be quite active and walks 3 miles a day. He states that restarting imdur has helped his symptoms. Denies chest pain, chest tigtness, shortness of breath, palpitations. Home BPs are in the 100s, but occasionally he has had a few SBPs in the high 80s. No dizziness/LH or syncope. Denies leg swelling, orthopnea, PND. No recent nitro use. Of note, a 12 point review of systems was performed; all other review of systems negative, except as listed in the interval history. PAST MEDICAL HISTORY: 1) Kidney stone (SNOMED CT 69767138) 2) Mixed hyperlipidemia (SNOMED CT 736814615) 3) Permanent cardiac pacemaker (SNOMED CT [id number]) 4) Elevated Liver Function Tests 5) Benign essential hypertension 6) Coronary artery disease 7) Hyperlipidemia 8) Elevated PSA 9) Peripheral vascular disease 10) Diabetes mellitus type 1 11) Hypoglycaemia 12) Congestive heart failure 13) Pneumonia 14) Neuropathy 15) Closed extraarticular fracture of distal radius 16) Exposure to potentially hazardous substance 17) Bilateral senile combined form cataracts of eyes 18) Lumbar radiculopathy 19) History of coronary artery bypass grafting 20) Impacted cerumen of bilateral ears SOCIAL HISTORY: lives with Arley alcohol: rarely tobacco: never smoker illicit drugs: none ALLERGIES: CIPROFLOXACIN, LISINOPRIL CURRENT OUTPATIENT MEDICATIONS: Active Outpatient Medications (including Supplies): Active Outpatient Medications Status 1) ATORVASTATIN CALCIUM 80MG TAB TAKE ONE TABLET BY MOUTH EVERY ACTIVE EVENING FOR CHOLESTEROL. REPORT ANY UNEXPLAINED MUSCLE PAIN/WEAKNESS TO PROVIDER. Indication: FOR HIGH CHOLESTEROL 2) GABAPENTIN 300MG CAP TAKE ONE CAPSULE BY MOUTH THREE TIMES A ACTIVE DAY FOR PAIN Indication: FOR NERVE PAIN 3) GLUCOSE SENSOR DEXCOM G6 USE 1 SENSOR UNDER THE SKIN EVERY ACTIVE 10 DAYS TO MONITOR GLUCOSE READINGS 4) INSULIN,ASPART(EQV-NOVLG)100 UN/ML FLXPEN INJECT 25 UNITS ACTIVE UNDER THE SKIN THREE TIMES A DAY BEFORE MEALS ADMINISTER 10 MINUTES BEFORE FOOD DIRECTED. REFRIGERATE UN-OPENED PENS. DISCARD CARTRIDGE 28 DAYS AFTER OPENING. USES UP TO 100 UNITS THROUGHOUT THE DAY Indication: FOR DIABETES 5) INSULIN,GLARGINE 100 UNT/ML 3ML SOLOSTAR INJECT 46 UNITS ACTIVE UNDER THE SKIN ONCE A DAY ADMINISTER AT SAME TIME EACH DAY DIRECTED. DISCARD ANY OPEN CARTRIDGE AFTER 28 DAYS. Indication: FOR DIABETES 6) ISOSORBIDE MONONITRATE 30MG SA TAB TAKE ONE TABLET BY MOUTH ACTIVE ONCE A DAY TAKE ON EMPTY STOMACH. SWALLOW WHOLE. DO NOT CRUSH OR CHEW. Indication: FOR CHEST PAIN 7) METOPROLOL SUCCINATE 25MG SA TAB TAKE ONE-HALF TABLET BY ACTIVE MOUTH ONCE A DAY SWALLOW WHOLE, DO NOT CRUSH OR CHEW (TABLETS MAY BE CUT IN HALF). Indication: FOR MYOCARDIAL INFARCTION 8) NEEDLE,PEN 31G,5MM USE 1 NEEDLE UNDER THE SKIN 5 TIMES A DAY ACTIVE Indication: FOR INJECTION ON INSULIN 9) ORACIT SOLN TAKE 15 ML BY MOUTH TWICE A DAY (MIX WITH 4 ACTIVE OUNCES OF WATER PRIOR TO DRINKING) Indication: FOR PREVENTION OF KIDNEY STONES 10) TAMSULOSIN HCL 0.4MG CAP TAKE ONE CAPSULE BY MOUTH EVERY ACTIVE EVENING APPROXIMATELY 30 MINUTES AFTER THE SAME MEAL EACH DAY Indication: FOR BENIGN PROSTATIC HYPERPLASIA Active Non-VA Medications Status 1) Non-VA ASPIRIN 81MG EC TAB 81MG BY MOUTH ONCE A DAY ACTIVE Indication: FOR CARDIOVASCULAR DISEASE 2) Non-VA CHOLECALCIF 50MCG (D3-2,000UNIT) TAB 50MCG BY MOUTH ACTIVE ONCE A DAY Indication: FOR VITAMIN D DEFICIENCY 3) Non-VA CITALOPRAM HYDROBROMIDE 40MG TAB 20MG BY MOUTH EVERY ACTIVE MORNING Indication: FOR DEPRESSION 4) Non-VA PANTOPRAZOLE NA 40MG EC TAB 40MG BY MOUTH EVERY ACTIVE MORNING BEFORE A MEAL Indication: FOR GASTROESOPHAGEAL REFLUX DISEASE 14 Total Medications - All cardiac medications were reconciled during the visit. asa 81 metop XL 12.5 imdur 30 atorva 80 PHYSICAL EXAM: Date Vital Measurement Qualifiers 09/05/2024 13:38 Temp F (C) 97.7 (36.5) Pulse 88 Respir 16 BP 103/64 Wt lbs (kg)[BMI] 194.9 (88.41)[28*] Pain 0 POx (L/Min)(%) 95 GENERAL: Sclera anicteric, PERRLA, MMM NECK: Carotids were brisk without bruits. CHEST/LUNGS: Clear to auscultation bilaterally with no rales or wheezes. Good respiratory effort and excursion. HEART: S1 S2, RRR, no JVP ABDOMEN: Soft, nontender, BS positive x 4 quadrants EXTREMITIES: No lower extremity edema. Pedal pulses intact bilaterally NEUROLOGICAL: Alert and oriented x 3. Normal motor strength. PSYCHIATRIC: Mood and affect appropriate DIAGNOSTIC DATA: ###. PHARMACOLOGIC STRESS TEST 05/11/2024 1. 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 No evidence of reversibility to indicate stress-induced ischemia. 2. Moderate global hypokinesis with calculated LVEF of 34%. 3. Dilated left ventricle. ###. ECHOCARDIOGRAM: TTE 10/16/2023 1. Global systolic function: Overall left ventricular systolic function is mildly impaired with an estimated ejection fraction of 45 - 50%. 2. Regional systolic function: Wall motion: Hypokinesis in midapical anterior, mid-anterolateral and apical portion of LV haney. The remaining left ventricular segments contract normally. 3. Mild diastolic dysfunction (grade I) with normal left atrial filling pressure. 4. Normal right ventricular systolic function. 5. The left atrium is mildly enlarged. 6. Mild aortic regurgitation. 7. No other hemodynamically significant valvular abnormality. 8. As compared with the previous echocardiogram done on 12/11/21, LVEF is improved. TTE 12/11/2021 1. Severe left ventricular enlargement. 2. Global systolic function: Overall left ventricular systolic function is moderately impaired with an estimated ejection fraction of 35 - 40%. 3. Regional systolic function: Wall motion: Global hypokinesis with worse hypokinesis in the apical segments. 4. Diastolic function: Mitral inflow pattern and tissue Doppler is consistent with LV diastolic dysfunction (grade I) and normal left atrial filling pressure. 5. The right ventricular size is normal. Normal right ventricular systolic function. 6. The left atrium is mildly enlarged. 7. The right atrial size is normal. 8. Electronic pacemaker lead seen in the right atrial and right ventricular cavity. 9. Mild aortic regurgitation. 10. Mild mitral regurgitation. 11. No other hemodynamically significant valvular abnormality. 12. Pulmonary pressures are within normal limits. 13. As compared to the previous echocardiogram done on 10/01/2020, LVEF has worsened. TTE 04/2019 showed EF 30-35% with severe hypokinesis in apical septum, apical cap, apical lateral wall, apical anterior wall, apical inferior wall and proximal to mid lateral haney, mild diastolic dysfunction, normal RV systolic dysfunction(note HR 45-55/m and paced). 07/2019 TTE showed EF 39% with hypokinetic LV apex. ###. ECG: -The ECG was personally reviewed, with findings of: AV dual paced rhythm at 50 bpm ###. CARDIAC CATH: [facility] 10/15/2023 LEFT HEART CATHETERIZATION LV Systolic (mmHg): 126, EDP (mmHg): 16 Mild Aortic valve stenosis CORONARY ANGIOGRAPHY [place] Vessels Summary: 2 vessel CAD Dominance: Right dominant Stenoses Details Segment Stenosis Length Characteristics and Comments Left Main Large caliber vessel which trifurcates into LAD, LCx, and Ramus Intermedius. Distal left main has an eccentric 70-90% stenosis. LAD (overall) Medium caliber vessel which gives off one bifurcating diagonal and several septals and wraps around the apex. Proximal LAD has a stent which is has an area of 25-50% stenosis due to under-expansion unchanged from prior. Apical LAD has 70-90% disease. Ramus Intermedius Small caliber vessel, diffuse moderate disease CIRCUMFLEX (overall) Non-dominant, medium caliber vessel which gives off one small high OM and a second larger OM, and a third large OM and tapers in the left AV groove. Ostial LCx has 25- 50% stenosis, mid LCx has 50-70% stenosis between OM2 and OM3. OM2 has a proximal stent which is widely patent with a focal 50-70% stenosis beyond. OM3 has a widely patent stent. RCA (overall) Dominant, medium caliber vessel which gives rise to PDA and PL branches distally. There is stent in the mid RCA which is widely patent, and a stent in distal RCA which is widely patent. There is a focal 50-70% stenosis in distal RCA just before the distal stent. The PDA has moderate to severe diffuse disease. The diagonal vessel has diffuse moderate disease. PROCEDURE SUMMARY -Severe distal left main coronary artery disease -Patent stents in LAD, OM2, OM3, RCA -Unchanged moderate to severe disease in PDA and apical LAD RECOMMENDATIONS -Refer to cardiothoracic surgery for evaluation of coronary artery bypass grafting [facility] on 06/12/2020 -severe LAD and moderate LCX/OM and RCA disease. He underwent successful PCI of proximal and mid LAD. ###. ICD: s/p PPM 11/2012 --> upgrade to TRAUMA DIRECTOR-D 03/2022 ###. Current NYHA Class: I ###. LABORATORIES: COMPREHENSIVE METABOLIC PANEL SODIUM 141 mEq/L 04/06/2024 11:43 POTASSIUM 4.9 mEq/L 04/06/2024 11:43 CHLORIDE 106 mEq/L 04/06/2024 11:43 UREA NITROGEN 20.0 mg/dL 04/06/2024 11:43 CREATININE 1.12 mg/dL 04/06/2024 11:43 CALCIUM 9.5 mg/dL 04/06/2024 11:43 PROTEIN 7.1 g/dL 04/06/2024 11:43 ALBUMIN 4.2 g/dL 04/06/2024 11:43 ALKALINE PHOSPHATASE 157 H U/L 04/06/2024 11:43 ALT/SGPT 20 U/L 04/06/2024 11:43 AST/SGOT 26 U/L 04/06/2024 11:43 TOTAL BILIRUBIN 1.6 H mg/dL 04/06/2024 11:43 CARBON DIOXIDE 23 mEq/L 04/06/2024 11:43 GLUCOSE 127 H mg/dL 04/06/2024 11:43 EGFR (CKD-EPI 2020) 68.1 04/06/2024 11:43 COMPLETE BLOOD COUNT WBC 5.9 10*3/uL 02/08/2024 08:28 RBC 5.57 10*6/uL 02/08/2024 08:28 HGB 15.5 g/dL 02/08/2024 08:28 HCT 48.9 H % 02/08/2024 08:28 MCV 87.8 fL 02/08/2024 08:28 MCH 27.8 pg 02/08/2024 08:28 MCHC 31.7 L g/dL 02/08/2024 08:28 RDW 14.6 % 02/08/2024 08:28 PLT 142 L 10*3/uL 02/08/2024 08:28 MPV 11.5 H fL 02/08/2024 08:28 NEUTROPHILS, AUTO % 67 % 02/08/2024 08:28 LYMPHOCYTES, AUTO % 21 % 02/08/2024 08:28 MONOCYTES, AUTO % 10 % 02/08/2024 08:28 EOSINOPHILS, AUTO % 2 % 02/08/2024 08:28 BASOPHILS, AUTO % 1 % 02/08/2024 08:28 NEUTROPHILS, ABSOLUTE 3.95 10*3/uL 02/08/2024 08:28 LYMPHOCYTES, ABSOLUTE 1.22 10*3/uL 02/08/2024 08:28 MONOCYTES, ABSOLUTE 0.61 10*3/uL 02/08/2024 08:28 EOSINOPHILS, ABSOLUTE 0.10 10*3/uL 02/08/2024 08:28 BASOPHILS, ABSOLUTE 0.03 10*3/uL 02/08/2024 08:28 IMMATURE PLT FRACTION 3.4 % 02/08/2024 08:28 COAGULATION STUDIES INR VALUE 1.0 INR 10/15/2023 06:20 PROTIME 10.9 sec 10/15/2023 06:20 No PTT EO data found HGA1C: HGA1C 6.7 H % 04/06/2024 11:43 LIPIDS TRIGLYCERIDE 101 mg/dL 04/06/2024 11:43 CHOLESTEROL 145 mg/dL 04/06/2024 11:43 HDL(New) 41 mg/dL 04/06/2024 11:43 CALCULATED LDL 84 mg/dL 04/06/2024 11:43 CARDIAC BIOMARKERS Trop: TROPONIN I 0.032 ng/mL 02/08/2024 11:12 BNP: BRAIN NATRIURETIC PEPTIDE 196.3 H pg/mL 02/08/2024 08:28 ASSESSMENT AND PLAN: Mr. Soto is a 79 y/o with PMH which includes CAD s/p PCI, HFrEF s/p TRAUMA DIRECTOR-D, h/o complete heart block s/p pacemaker in 12/10/2012, h/o acute pericarditis (now resolved) at age 37 which led to the diagnosis of type I diabetes, HTN, and HLD. He appears euvolemic today, NYHA Class I. BARRIERS TO CARE AND CANDIDACY FOR ADVANCED THERAPIES: - age # HFrEF (likely non-ischemic) with upgrade to TRAUMA DIRECTOR-D 03/2022: - fluctuating EF, most recent TTE 09/2023 EF 45-50% - continue GDMT: no SGLT2i (type 1 DM) metop XL 12.5mg daily losartan previously dc'd d/t symptomatic hypotension has not tolerated MRA d/t hyperkalemia - lasix 20mg prn, has not needed for months - encouraged daily am weights, VS trending, salt restriction, exercise #. Vfib - s/p ICD shock 09/17/2023 - followed by EP Dr. Douglas # CAD - s/p ESE x 2 to RCA in 09/2013 - LHC 06/12/2020 showed severe LAD and moderate LCX/OM and RCA disease, s/p successful PCI of proximal and mid LAD - CABG x3 (ABBOTT->LAD, Left radial artery to OM and SVG to PDA) at [facility] with Dr. Bernstein on 10/21/2023 - pharmacologic stress test 05/11/2024: no stress-induced ischemia - atorvastatin 20mg daily - asa 81mg daily - sl tng, reinstructed on use - recommend heart healthy diet # H/o CHB s/p permanent pacemaker 12/10/2012, upgrade to TRAUMA DIRECTOR-D in 03/2022 - device followed in EP clinic # H/O Hyperkalemia - has not tolerated MRA # HTN - mediacation as above - encouraged home BP monitoring - instructed to notify us if SBP <100 or LH/dizziness # Type I diabetes since age 37 yrs - followed by endocrinology # Mild JARRED - RDI 9.5/AHI 7.7, but severe in supine position from PSG 07/2016 - he does not wear CPAP, he declines repeat PSG # Dispo - RTC 6 months Thank you for allowing us to participate in this [facility]. Please do not hesitate to call the HF team with any questions or concerns. /reed/ Diego Daniel PA-C Cardiology Physician Service Advisor Signed: 09/05/2024 19:53 Receipt Acknowledged By: 09/06/2024 13:30 /reed/ VICKI HIGGINS MD, PhD 09/06/2024 ADDENDUM STATUS: COMPLETED I have reviewed the note by Fredy DELUCA and have no further recommendations. /reed/ VICKI HIGGINS MD, PhD Signed: 09/06/2024 13:30 DEVIN CARTER N [facility] Sep 05, 2024 01:16 PM CARDIOLOGY OUTPATI ENT NOTE: LOCAL TITLE: CARDIOLOGY OUTPATIENT FOLLOW UP STL STANDARD TITLE: CARDIOLOGY OUTPATIENT NOTE DATE OF NOTE: SEP 05, 2024@13:16 ENTRY DATE: SEP 05, 2024@13:17:01 AUTHOR: DIEGO DANIEL COSIGNER: URGENCY: STATUS: COMPLETED CARDIOLOGY OUTPATIENT FOLLOW UP STL Has ADDENDA [facility]VANCED HEART FAILURE SERVICE: FOLLOW-UP VISIT NOTE PRINCIPAL AND SECONDARY DIAGNOSES: # HFrEF - TTE 11/2021 35-40% - s/p PPM 11/2012 --> upgrade to TRAUMA DIRECTOR-D 03/2022 # CAD - s/p ESE x 2 to RCA in 09/2013 - C 06/12/2020 showed severe LAD and moderate LCX/OM and RCA disease, s/p successful PCI of proximal and mid LAD - s/p CABG x3 (ABBOTT->LAD, Left radial artery to OM and SVG to PDA) at [facility] with Dr. Bernstein on 10/21/2023 # H/o CHB s/p permanent pacemaker 12/10/2012, upgrade to TRAUMA DIRECTOR-D in 03/2022 # H/O Hyperkalemia # HTN # Type I diabetes since age 37 yrs # Mild JARRED CARE TEAM: 1. DEVIN CARTER N INTERVAL HISTORY: Mr. Soto is a 79 y/o with PMH which includes CAD s/p ESE x 2 to RCA 10/13/2013 (LHC in 09/2013 showed 40-50% LCX, patent stent to OM, 30-40% lesion distal to stent in OM, ostial diag lesion 40%, with tandem 60-70% lesions), HFrEF s/p TRAUMA DIRECTOR-D, h/o complete heart block s/p pacemaker in 12/10/2012, h/o acute pericarditis (now resolved), at age 37 which led to the diagnosis of type I diabetes, HTN, and HLD. He had a shock for ventricular fibrillation during exertional exercise in 09/17/2023. Seen by Dr. Douglas 10/06/2023. The electrograms were reviewed by Dr. Douglas and consistent with sudden fine ventricular fibrillation, and given the clinical scenario during exertion is most likely consistent with ischemia. He had LHC which showed severe distal LM CAD. He then underwent CABG x3 (ABBOTT-> LAD, Left radial artery to OM and SVG to PDA) at [facility] with Dr. Bernstein on 10/21/2023. Last clinic visit 04/06/2024. No interim ED visits or hospitalizations for cardiac issues. He had pharmacologic stress test 05/11/2024 that was negative for stress-induced ischemia. TODAY: He reports that he is overall doing well. He continues to be quite active and walks 3 miles a day. He states that restarting imdur has helped his symptoms. Denies chest pain, chest tigtness, shortness of breath, palpitations. Home BPs are in the 100s, but occasionally he has had a few SBPs in the high 80s. No dizziness/LH or syncope. Denies leg swelling, orthopnea, PND. No recent nitro use. Of note, a 12 point review of systems was performed; all other review of systems negative, except as listed in the interval history. PAST MEDICAL HISTORY: 1) Kidney stone (SNOMED CT 59566931) 2) Mixed hyperlipidemia (SNOMED CT 801809841) 3) Permanent cardiac pacemaker (SNOMED CT 605663800614866) 4) Elevated Liver Function Tests 5) Benign essential hypertension 6) Coronary artery disease 7) Hyperlipidemia 8) Elevated PSA 9) Peripheral vascular disease 10) Diabetes mellitus type 1 11) Hypoglycaemia 12) Congestive heart failure 13) Pneumonia 14) Neuropathy 15) Closed extraarticular fracture of distal radius 16) Exposure to potentially hazardous substance 17) Bilateral senile combined form cataracts of eyes 18) Lumbar radiculopathy 19) History of coronary artery bypass grafting 20) Impacted cerumen of bilateral ears SOCIAL HISTORY: lives with Arley alcohol: rarely tobacco: never smoker illicit drugs: none ALLERGIES: CIPROFLOXACIN, LISINOPRIL CURRENT OUTPATIENT MEDICATIONS: Active Outpatient Medications (including Supplies): Active Outpatient Medications Status 1) ATORVASTATIN CALCIUM 80MG TAB TAKE ONE TABLET BY MOUTH EVERY ACTIVE EVENING FOR CHOLESTEROL. REPORT ANY UNEXPLAINED MUSCLE PAIN/WEAKNESS TO PROVIDER. Indication: FOR HIGH CHOLESTEROL 2) GABAPENTIN 300MG CAP TAKE ONE CAPSULE BY MOUTH THREE TIMES A ACTIVE DAY FOR PAIN Indication: FOR NERVE PAIN 3) GLUCOSE SENSOR DEXCOM G6 USE 1 SENSOR UNDER THE SKIN EVERY ACTIVE 10 DAYS TO MONITOR GLUCOSE READINGS 4) INSULIN,ASPART(EQV-NOVLG)100 UN/ML FLXPEN INJECT 25 UNITS ACTIVE UNDER THE SKIN THREE TIMES A DAY BEFORE MEALS ADMINISTER 10 MINUTES BEFORE FOOD DIRECTED. REFRIGERATE UN-OPENED PENS. DISCARD CARTRIDGE 28 DAYS AFTER OPENING. USES UP TO 100 UNITS THROUGHOUT THE DAY Indication: FOR DIABETES 5) INSULIN,GLARGINE 100 UNT/ML 3ML SOLOSTAR INJECT 46 UNITS ACTIVE UNDER THE SKIN ONCE A DAY ADMINISTER AT SAME TIME EACH DAY DIRECTED. DISCARD ANY OPEN CARTRIDGE AFTER 28 DAYS. Indication: FOR DIABETES 6) ISOSORBIDE MONONITRATE 30MG SA TAB TAKE ONE TABLET BY MOUTH ACTIVE ONCE A DAY TAKE ON EMPTY STOMACH. SWALLOW WHOLE. DO NOT CRUSH OR CHEW. Indication: FOR CHEST PAIN 7) METOPROLOL SUCCINATE 25MG SA TAB TAKE ONE-HALF TABLET BY ACTIVE MOUTH ONCE A DAY SWALLOW WHOLE, DO NOT CRUSH OR CHEW (TABLETS MAY BE CUT IN HALF). Indication: FOR MYOCARDIAL INFARCTION 8) NEEDLE,PEN 31G,5MM USE 1 NEEDLE UNDER THE SKIN 5 TIMES A DAY ACTIVE Indication: FOR INJECTION ON INSULIN 9) ORACIT SOLN TAKE 15 ML BY MOUTH TWICE A DAY (MIX WITH 4 ACTIVE OUNCES OF WATER PRIOR TO DRINKING) Indication: FOR PREVENTION OF KIDNEY STONES 10) TAMSULOSIN HCL 0.4MG CAP TAKE ONE CAPSULE BY MOUTH EVERY ACTIVE EVENING APPROXIMATELY 30 MINUTES AFTER THE SAME MEAL EACH DAY Indication: FOR BENIGN PROSTATIC HYPERPLASIA Active Non-VA Medications Status 1) Non-VA ASPIRIN 81MG EC TAB 81MG BY MOUTH ONCE A DAY ACTIVE Indication: FOR CARDIOVASCULAR DISEASE 2) Non-VA CHOLECALCIF 50MCG (D3-2,000UNIT) TAB 50MCG BY MOUTH ACTIVE ONCE A DAY Indication: FOR VITAMIN D DEFICIENCY 3) Non-VA CITALOPRAM HYDROBROMIDE 40MG TAB 20MG BY MOUTH EVERY ACTIVE MORNING Indication: FOR DEPRESSION 4) Non-VA PANTOPRAZOLE NA 40MG EC TAB 40MG BY MOUTH EVERY ACTIVE MORNING BEFORE A MEAL Indication: FOR GASTROESOPHAGEAL REFLUX DISEASE 14 Total Medications - All cardiac medications were reconciled during the visit. asa 81 metop XL 12.5 imdur 30 atorva 80 PHYSICAL EXAM: Date Vital Measurement Qualifiers 09/05/2024 13:38 Temp F (C) 97.7 (36.5) Pulse 88 Respir 16 BP 103/64 Wt lbs (kg)[BMI] 194.9 (88.41)[28*] Pain 0 POx (L/Min)(%) 95 GENERAL: Sclera anicteric, PERRLA, MMM NECK: Carotids were brisk without bruits. CHEST/LUNGS: Clear to auscultation bilaterally with no rales or wheezes. Good respiratory effort and excursion. HEART: S1 S2, RRR, no JVP ABDOMEN: Soft, nontender, BS positive x 4 quadrants EXTREMITIES: No lower extremity edema. Pedal pulses intact bilaterally NEUROLOGICAL: Alert and oriented x 3. Normal motor strength. PSYCHIATRIC: Mood and affect appropriate DIAGNOSTIC DATA: ###. PHARMACOLOGIC STRESS TEST 05/11/2024 1. 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 No evidence of reversibility to indicate stress-induced ischemia. 2. Moderate global hypokinesis with calculated LVEF of 34%. 3. Dilated left ventricle. ###. ECHOCARDIOGRAM: TTE 10/16/2023 1. Global systolic function: Overall left ventricular systolic function is mildly impaired with an estimated ejection fraction of 45 - 50%. 2. Regional systolic function: Wall motion: Hypokinesis in midapical anterior, mid-anterolateral and apical portion of LV ahney. The remaining left ventricular segments contract normally. 3. Mild diastolic dysfunction (grade I) with normal left atrial filling pressure. 4. Normal right ventricular systolic function. 5. The left atrium is mildly enlarged. 6. Mild aortic regurgitation. 7. No other hemodynamically significant valvular abnormality. 8. As compared with the previous echocardiogram done on 12/11/21, LVEF is improved. TTE 12/11/2021 1. Severe left ventricular enlargement. 2. Global systolic function: Overall left ventricular systolic function is moderately impaired with an estimated ejection fraction of 35 - 40%. 3. Regional systolic function: Wall motion: Global hypokinesis with worse hypokinesis in the apical segments. 4. Diastolic function: Mitral inflow pattern and tissue Doppler is consistent with LV diastolic dysfunction (grade I) and normal left atrial filling pressure. 5. The right ventricular size is normal. Normal right ventricular systolic function. 6. The left atrium is mildly enlarged. 7. The right atrial size is normal. 8. Electronic pacemaker lead seen in the right atrial and right ventricular cavity. 9. Mild aortic regurgitation. 10. Mild mitral regurgitation. 11. No other hemodynamically significant valvular abnormality. 12. Pulmonary pressures are within normal limits. 13. As compared to the previous echocardiogram done on 10/01/2020, LVEF has worsened. TTE 04/2019 showed EF 30-35% with severe hypokinesis in apical septum, apical cap, apical lateral wall, apical anterior wall, apical inferior wall and proximal to mid lateral haney, mild diastolic dysfunction, normal RV systolic dysfunction(note HR 45-55/m and paced). 07/2019 TTE showed EF 39% with hypokinetic LV apex. ###. ECG: -The ECG was personally reviewed, with findings of: AV dual paced rhythm at 50 bpm ###. CARDIAC CATH: [facility] 10/15/2023 LEFT HEART CATHETERIZATION LV Systolic (mmHg): 126, EDP (mmHg): 16 Mild Aortic valve stenosis CORONARY ANGIOGRAPHY [place] Vessels Summary: 2 vessel CAD Dominance: Right dominant Stenoses Details Segment Stenosis Length Characteristics and Comments Left Main Large caliber vessel which trifurcates into LAD, LCx, and Ramus Intermedius. Distal left main has an eccentric 70-90% stenosis. LAD (overall) Medium caliber vessel which gives off one bifurcating diagonal and several septals and wraps around the apex. Proximal LAD has a stent which is has an area of 25-50% stenosis due to under-expansion unchanged from prior. Apical LAD has 70-90% disease. Ramus Intermedius Small caliber vessel, diffuse moderate disease CIRCUMFLEX (overall) Non-dominant, medium caliber vessel which gives off one small high OM and a second larger OM, and a third large OM and tapers in the left AV groove. Ostial LCx has 25- 50% stenosis, mid LCx has 50-70% stenosis between OM2 and OM3. OM2 has a proximal stent which is widely patent with a focal 50-70% stenosis beyond. OM3 has a widely patent stent. RCA (overall) Dominant, medium caliber vessel which gives rise to PDA and PL branches distally. There is stent in the mid RCA which is widely patent, and a stent in distal RCA which is widely patent. There is a focal 50-70% stenosis in distal RCA just before the distal stent. The PDA has moderate to severe diffuse disease. The diagonal vessel has diffuse moderate disease. PROCEDURE SUMMARY -Severe distal left main coronary artery disease -Patent stents in LAD, OM2, OM3, RCA -Unchanged moderate to severe disease in PDA and apical LAD RECOMMENDATIONS -Refer to cardiothoracic surgery for evaluation of coronary artery bypass grafting [facility] on 06/12/2020 -severe LAD and moderate LCX/OM and RCA disease. He underwent successful PCI of proximal and mid LAD. ###. ICD: s/p PPM 11/2012 --> upgrade to TRAUMA DIRECTOR-D 03/2022 ###. Current NYHA Class: I ###. LABORATORIES: COMPREHENSIVE METABOLIC PANEL SODIUM 141 mEq/L 04/06/2024 11:43 POTASSIUM 4.9 mEq/L 04/06/2024 11:43 CHLORIDE 106 mEq/L 04/06/2024 11:43 UREA NITROGEN 20.0 mg/dL 04/06/2024 11:43 CREATININE 1.12 mg/dL 04/06/2024 11:43 CALCIUM 9.5 mg/dL 04/06/2024 11:43 PROTEIN 7.1 g/dL 04/06/2024 11:43 ALBUMIN 4.2 g/dL 04/06/2024 11:43 ALKALINE PHOSPHATASE 157 H U/L 04/06/2024 11:43 ALT/SGPT 20 U/L 04/06/2024 11:43 AST/SGOT 26 U/L 04/06/2024 11:43 TOTAL BILIRUBIN 1.6 H mg/dL 04/06/2024 11:43 CARBON DIOXIDE 23 mEq/L 04/06/2024 11:43 GLUCOSE 127 H mg/dL 04/06/2024 11:43 EGFR (CKD-EPI 2020) 68.1 04/06/2024 11:43 COMPLETE BLOOD COUNT WBC 5.9 10*3/uL 02/08/2024 08:28 RBC 5.57 10*6/uL 02/08/2024 08:28 HGB 15.5 g/dL 02/08/2024 08:28 HCT 48.9 H % 02/08/2024 08:28 MCV 87.8 fL 02/08/2024 08:28 MCH 27.8 pg 02/08/2024 08:28 MCHC 31.7 L g/dL 02/08/2024 08:28 RDW 14.6 % 02/08/2024 08:28 PLT 142 L 10*3/uL 02/08/2024 08:28 MPV 11.5 H fL 02/08/2024 08:28 NEUTROPHILS, AUTO % 67 % 02/08/2024 08:28 LYMPHOCYTES, AUTO % 21 % 02/08/2024 08:28 MONOCYTES, AUTO % 10 % 02/08/2024 08:28 EOSINOPHILS, AUTO % 2 % 02/08/2024 08:28 BASOPHILS, AUTO % 1 % 02/08/2024 08:28 NEUTROPHILS, ABSOLUTE 3.95 10*3/uL 02/08/2024 08:28 LYMPHOCYTES, ABSOLUTE 1.22 10*3/uL 02/08/2024 08:28 MONOCYTES, ABSOLUTE 0.61 10*3/uL 02/08/2024 08:28 EOSINOPHILS, ABSOLUTE 0.10 10*3/uL 02/08/2024 08:28 BASOPHILS, ABSOLUTE 0.03 10*3/uL 02/08/2024 08:28 IMMATURE PLT FRACTION 3.4 % 02/08/2024 08:28 COAGULATION STUDIES INR VALUE 1.0 INR 10/15/2023 06:20 PROTIME 10.9 sec 10/15/2023 06:20 No PTT EO data found HGA1C: HGA1C 6.7 H % 04/06/2024 11:43 LIPIDS TRIGLYCERIDE 101 mg/dL 04/06/2024 11:43 CHOLESTEROL 145 mg/dL 04/06/2024 11:43 HDL(New) 41 mg/dL 04/06/2024 11:43 CALCULATED LDL 84 mg/dL 04/06/2024 11:43 CARDIAC BIOMARKERS Trop: TROPONIN I 0.032 ng/mL 02/08/2024 11:12 BNP: BRAIN NATRIURETIC PEPTIDE 196.3 H pg/mL 02/08/2024 08:28 ASSESSMENT AND PLAN: Mr. Soto is a 79 y/o [place] with PMH which includes CAD s/p PCI, HFrEF s/p TRAUMA DIRECTOR-D, h/o complete heart block s/p pacemaker in 12/10/2012, h/o acute pericarditis (now resolved) at age 37 which led to the diagnosis of type I diabetes, HTN, and HLD. He appears euvolemic today, NYHA Class I. BARRIERS TO CARE AND CANDIDACY FOR ADVANCED THERAPIES: - age # HFrEF (likely non-ischemic) with upgrade to TRAUMA DIRECTOR-D 03/2022: - fluctuating EF, most recent TTE 09/2023 EF 45-50% - continue GDMT: no SGLT2i (type 1 DM) metop XL 12.5mg daily losartan previously dc'd d/t symptomatic hypotension has not tolerated MRA d/t hyperkalemia - lasix 20mg prn, has not needed for months - encouraged daily am weights, VS trending, salt restriction, exercise #. Vfib - s/p ICD shock 09/17/2023 - followed by EP Dr. Douglas # CAD - s/p ESE x 2 to RCA in 09/2013 - [facility] 06/12/2020 showed severe LAD and moderate LCX/OM and RCA disease, s/p successful PCI of proximal and mid LAD - CABG x3 (ABBOTT->LAD, Left radial artery to OM and SVG to PDA) at [facility] with Dr. Bernstein on 10/21/2023 - pharmacologic stress test 05/11/2024: no stress-induced ischemia - atorvastatin 20mg daily - asa 81mg daily - sl tng, reinstructed on use - recommend heart healthy diet # H/o CHB s/p permanent pacemaker 12/10/2012, upgrade to TRAUMA DIRECTOR-D in 03/2022 - device followed in EP clinic # H/O Hyperkalemia - has not tolerated MRA # HTN - mediacation as above - encouraged home BP monitoring - instructed to notify us if SBP <100 or LH/dizziness # Type I diabetes since age 37 yrs - followed by endocrinology # Mild JARRED - RDI 9.5/AHI 7.7, but severe in supine position from PSG 07/2016 - he does not wear CPAP, he declines repeat PSG # Dispo - RTC 6 months Thank you for allowing us to participate in this [facility]. Please do not hesitate to call the HF team with any questions or concerns. /reed/ Diego Daniel PA-C Cardiology Physician Service Advisor Signed: 09/05/2024 19:53 Receipt Acknowledged By: 09/06/2024 13:30 /ankit HIGGINS MD, PhD 09/06/2024 ADDENDUM STATUS: COMPLETED I have reviewed the note by Fredy DELUCA and have no further recommendations. /ankit HIGGINS MD, PhD Signed: 09/06/2024 13:30 10/12/2024 ADDENDUM STATUS: COMPLETED Received form from [place] Office of transcript evaluator, [employer] safety Department. To complete medical report for conditions that may impair Driving safely. Please provide your assessment regarding [employer] safely. alerting Cardiology VICKI HIGGINS. /reed/ Devin Carter MD. Staff Physcian. Signed: 10/12/2024 16:48 Receipt Acknowledged By: 10/17/2024 08:55 /ankit HIGGINS MD, PhD 10/17/2024 ADDENDUM STATUS: COMPLETED Diego do you see any issues with him driving? /ankit HIGGINS MD, PhD Signed: 10/17/2024 08:56 Receipt Acknowledged By: * AWAITING SIGNATURE * DEVIN CARTER 10/17/2024 12:09 /reed/ Diego Daniel PA-C Cardiology Physician Service Advisor 10/17/2024 ADDENDUM STATUS: COMPLETED Most recent ICD shock was >1 year ago (08/2023). Will cc device clinic to confirm (no f/u scheduled). If patient has not had any recent ICD shocks, no driving restrictions from cardiology standpoint. /reed/ Diego Daniel PA-C Cardiology Physician Service Advisor Signed: 10/17/2024 12:15 Receipt Acknowledged By: * AWAITING SIGNATURE * JW FRANKLIN * AWAITING SIGNATURE * ROBYN RUFFIN [facility] [facility]
--- OUTSIDE RECORDS SUMMARY | 2024-10-06 06:00 | XMS_ITS | Encounter Summary ---
Author Name [facility] Organization [facility] Address [address] [place] [address] Care Team Providers Care Physics Teacher Name Role Phone RAUL, DEVIN Primary Care [...] PART A Jun 01, 2012 PART A [id number] PILOMARYSEMAKENNA,SENA VID PATIENT MEDICARE (WNR) MEDICARE (M) PART B Jun 01, 2012 PART B [id number] PILOMARYSEEN,DA VID PATIENT MEDICARE (WNR) MEDICARE (M) PART A Jun 01, 2012 PART A [id number] PILOMARYSEEN,DA VID PATIENT MEDICARE (WNR) MEDICARE (M) PART B Jun 01, 2012 PART B [id number] GOCKEN,DA VID PATIENT MEDICARE (WNR) MEDICARE (M) PART A Jun 01, 1999 PART A [id number] SENA FUENTES PATIENT Selected Encounter This section includes the information on record at OR for the Encounter. 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 [facility]A [facility]LOY[facility] October 06, 2024 11:37 AM SECONDARY Atherosclerosis of CABG w/o angina pectoris MARÍA FLOYD [facility] October 06, 2024 11:37 AM SECONDARY Athscl heart disease of [place] coronary artery w/o ang pctrs MARÍA FLOYD [facility] October 06, 2024 11:37 AM SECONDARY Essential (primary) hypertension MARÍA FLOYD [facility] October 06, 2024 11:37 AM 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 MARÍA FLOYD [facility] October 06, 2024 11:37 AM SECONDARY Mixed hyperlipidemia MARÍA FLOYD [facility] October 06, 2024 11:37 AM SECONDARY Type 1 diabetes mellitus with hypoglycemia without coma MARÍA FLOYD [facility] October 06, 2024 11:37 AM SECONDARY Unspecified systolic (congestive) heart failure MARÍA FLOYD [facility] Plan of Treatment: Future Appointments (+ 6 months) and Future Tests (+/- 45 days) The Plan of Treatment section includes future care activities for the patient from all OR treatmentfacilities. This section includes future appointments and future orders which are active, pending or scheduled. Future Appointments This section includes appointments that were scheduled to occur 6 months from the date of the Encounter, up to a maximum of 20 appointments. The data comes from all [facility]. Appointment Date/Time Appointment Type Appointme nt Facility Name October 12, 2024 02:00 PM AMBULATORY - MEDICINE [facility] October 18, 2024 10:00 AM AMBULATORY - MEDICINE [facility] October 25, 2024 01:00 PM AMBULATORY - NONE [facility] Nov 21, 2024 08:30 AM AMBULATORY - MEDICINE [facility] Nov 21, 2024 11:00 AM AMBULATORY - NONE [facility] Dec 06, 2024 10:40 AM AMBULATORY - MEDICINE [facility] Dec 08, 2024 12:15 PM AMBULATORY - MEDICINE [facility] Dec 08, 2024 12:30 PM AMBULATORY - NONE . [facility] Dec 28, 2024 02:30 PM AMBULATORY - MEDICINE [facility] Jan 26, 2025 12:45 PM AMBULATORY - MEDICINE [facility] Feb 08, 2025 12:30 PM AMBULATORY - MEDICINE [facility] Feb 23, 2025 01:00 PM AMBULATORY - MEDICINE [facility] Mar 07, 2025 12:30 PM AMBULATORY - MEDICINE [facility] Apr 03, 2025 11:00 AM AMBULATORY - SURGERY [facility] Lab Results: +/- 30 days of the encounter This section includes the Chemistry and Hematology Lab Results on record with OR for the patient. Radiology Reports and Pathology Reports are provided separately, in subsequent sections. Lab Results This section contains the Chemistry/Hematology Results that were resulted 30 days before or 30 daysafter the date of the Encounter. Date/Time Source Result Type Result - Unit Interpretation Reference Range Specimen Type Comment October 12, 2024 02:02 PM [facility] GLUCOSE,BLOOD-poct (STL) BLOOD Specimen Type: BLOOD Comment: Test Performed by: [id number] Meter #: [id number] Ordering Provider: DEVIN CARTER Report Released Date/Time: October 12, 2024 03:22 PM Reporting Lab: [address] [address] Performing Lab: [address] [address] GLUCOSE,BLOOD-poct (STL) 114 mg/dL H 72-99 October 06, 2024 11:34 AM [facility] C-PEPTIDE SERUM Specimen Type: SERUM Comment: Test Performed by [facility], [employer] [facility], [address] [place] [address] Shon Markham M.D., Ph.D., Director of Laboratories , CLIA [id number] Test Performed by [facility], [address] [place] [address] Shon Markham M.D., Ph.D., Director of Laboratories , CLIA [id number] Ordering Provider: RADHA FLOYD Report Released Date/Time: October 06, 2024 11:23 AM Reporting Lab: [address] [address] Performing Lab: [facility] [id number] [place] [address] C-PEPTIDE 0.75 ng/mL L 0.80-3.85 October 06, 2024 11:34 AM [facility] CORTISOL(STL Eff 03/08) PLASMA Specimen Type: PLASMA Comment: No hemolysis noted. Ordering Provider: RADHA FLOYD Report Released Date/Time: October 06, 2024 11:23 AM Reporting Lab: [address] [address] Performing Lab: [address] [address] CORTISOL(STL Eff 03/08) 8.100 ug/dL October 06, 2024 11:34 AM [facility] HGA1C BLOOD Specimen Type: BLOOD No comment entered. Ordering Provider: RADHA FLOYD Report Released Date/Time: October 06, 2024 11:23 AM Reporting Lab: [address] [address] Performing Lab: [facility] [address] [facility] [address] HGA1C 7.2 H 4.0-6.0 October 06, 2024 11:34 AM [facility] TSH (MA-PB) SERUM Specimen Type: SERUM No comment entered. Ordering Provider: RADHA FLOYD Report Released Date/Time: October 06, 2024 11:23 AM Reporting Lab: [facility] [address] [facility] [address] Performing Lab: [address] [address] TSH 2.116 u[IU]/mL 0.47-5 October 06, 2024 11:34 AM [facility] COMPREHENSIVE METABOLIC PANEL PLASMA Specimen Type: PLASMA Comment: No hemolysis noted. Ordering Provider: RADHA FLOYD Report Released Date/Time: October 06, 2024 11:23 AM Reporting Lab: [place] [address] [facility] [address] Performing Lab: [address] [address] CREATININE 0.99 mg/dL 0.7-1.3 UREA NITROGEN 23.5 mg/dL 9.0-25.0 GLUCOSE 156 mg/dL H 72-99 SODIUM 137 meq/L 136-145 POTASSIUM 4.6 meq/L 3.5-5 CHLORIDE 106 meq/L 98-107 CARBON DIOXIDE 26 meq/L 22-31 CALCIUM 8.9 mg/dL 8.4-10.4 PROTEIN 6.7 g/dL 6-8.6 ALBUMIN 4.0 g/dL 3.4-5 TOTAL BILIRUBIN 1.5 mg/dL H 0.2-1.2 ALKALINE PHOSPHATASE 161 U/L H 40-150 AST/SGOT 30 U/L 5-34 ALT/SGPT 22 U/L 8-40 EGFR (CKD-EPI 2020) 78.5 >60 Vital Signs: All taken on the encounter date This section contains inpatient and outpatient Vital Signs collected on the date of the Encounter. Date/Time Temperature Pulse Blood Pressure Respiratory Rate SP02 Pain Height Weight Body Mass Index Source October 06, 2024 10:57 AM 98 88 117/74 16 97 0 195 28 [facility] Social History: Smoking Status (Most current) and Tobacco Use (All prior to encounter date) This section includes the most current, and the historical, smoking and tobacco- related health factors from the OR facility where the Encounter took place. Current Smoking Status This section includes the most current smoking, or tobacco-related health factor, from the OR facility where the Encounter took place. Date/Time Current Smoking Status Comment Lux itbalbir October 15, 2023 06:15 AM ORYX ADMIT TOBACCO SCREEN NO [facility] Tobacco Use History This section includes a history of the smoking, or tobacco-related health factors, that were collected on or before the date of the Encounter. The data comes from the OR facility where the Encounter took place. Date/Time Smoking Status/Tobacco Use Comment F saamnta October 14, 2022 01:17 PM VA-TOBACCO NEVER USED [facility] Mar 13, 2022 05:25 PM ORYX ADMIT TOBACCO SCREEN NO [facility] Apr 20, 2019 11:02 AM VA-TOBACCO FORMER USER [facility] Apr 20, 2019 11:02 AM VA-TOBACCO QUIT 15 YRS OR MORE [facility] Nov 19, 2015 09:23 AM LIFETIME NON-USER OF TOBACCO [facility] May 02, 2014 08:44 AM LIFETIME NON-USER OF TOBACCO [facility] Jun 15, 2013 04:36 PM LIFETIME NON-USER OF TOBACCO [facility] Jun 17, 2012 09:31 AM LIFETIME NON-USER OF TOBACCO [facility] Advance Directives: All historical and current Section Date Range: From patient's date of to the date document was created. This section includes ALL of a patient's completed or amended OR Advance and Rescinded Directives. The entries below indicate that a directive exists for the patient, but an actual copy is not included with this document. The data comes from all OR facilities. Date Advance Directives Provider Source Nov 19, 2015 ADVANCE DIRECTIVE DISCUSSION JENNIFER LONDONO [facility] Encounter Notes: All associated encounter notes This section contains the clinical notes associated to the Encounter. Date/Time Encounter Note(s) Provider Source October 12, 2024 04:49 PM ADDENDUM: LOCAL TITLE: Addendum STANDARD TITLE: ADDENDUM DATE OF NOTE: OCTOBER 12, 2024@16:49:11 ENTRY DATE: OCTOBER 12, 2024@16:49:13 AUTHOR: DEVIN CARTER EXP COSIGNER: URGENCY: STATUS: COMPLETED Received form from [place] Office of global safety officer, [employer] safety Department. To complete medical report for conditions that may impair Driving safely. Please provide your assessment regarding [employer] safely. alerting endocrinology PHYSICIAN GENERAL INTERNAL MEDICINE, RADHA FLOYD /reed/ Devin Carter MD. Staff Physan. Signed: 10/12/2024 16:50 Receipt Acknowledged By: 10/17/2024 10:54 /reed/ FLOR Romero, MSN, RN Nurse Practitioner --- Original Document --- 10/06/24 ENDOCRINOLOGY OUTPATIENT FOLLOW UP STL: ENDOCRINOLOGY FOLLOW-UP NOTE = Date of visit: OCTOBER 06, 2024 SUBJECTIVE Source(s) of history: Patient and/or other Reliability of source(s): Reliable CHIEF COMPLAINT: SKY FUENTES is a 79-year-old WHITE MALE with a previous medical history of , that presents today for diabetes management INTERIM HX: Last plan included: 1. t1dm with insulin use CGM summary [...] inject insulin up to 5 times daily -[place] has glucose tablets and glucagon at home in case of emergent hypoglycemia -Return to clinic in 6 months -Advised to call should he have glycemic control issues -[place] mention very briefly that he could be interested in switching to a pump in the future will address at next appointment -Veterans A1c may be elevated as he was having difficulty with glucose control while traveling in [place] currently taking: - 15 units lantus daily (down from 46) - novolog up to 60-75units daily (down from 100) CGM summary over previous 2 weeks Time in range: - Very high (>250):3% - High (181-250):13% - Target range (70-180):81% - Low (54-69): 3% - Very Low (<54):1% Time CGM in use: 94% GMI: 6.6% Any complications of diabetes: CAD s/p stent [...] Annual dilated eye exam INTERIM MEDICAL HISTORY: admitting to occasional instances where he will have a low blood pressure and a low blood sugar at the same time. HISTORY: Medical History: 1) Kidney stone (SNOMED CT 85974153) 2) Mixed hyperlipidemia (SNOMED CT 072774043) 3) Permanent cardiac pacemaker (SNOMED CT [id number]) 4) Elevated Liver Function Tests 5) Benign [...] grafting 20) Impacted cerumen of bilateral ears Surgical History: Any surgeries since previous meeting ROS: Negative except as noted in the HPI Active Outpatient Medications (including Supplies): ATORVASTATIN CALCIUM 80MG TAB TAKE ONE TABLET BY MOUTH ACTIVE EVERY EVENING FOR CHOLESTEROL. REPORT ANY UNEXPLAINED MUSCLE PAIN/WEAKNESS TO PROVIDER. Indication: FOR HIGH CHOLESTEROL GABAPENTIN 300MG CAP TAKE ONE CAPSULE BY MOUTH THREE TIMES ACTIVE A DAY FOR PAIN Indication: FOR NERVE PAIN GLUCOSE SENSOR DEXCOM G6 USE 1 SENSOR UNDER THE SKIN EVERY ACTIVE 10 DAYS TO MONITOR GLUCOSE READINGS INSULIN,ASPART(EQV-NOVLG)10 0UN/ML FLXPEN INJECT 25 UNITS ACTIVE UNDER THE SKIN THREE TIMES A DAY BEFORE MEALS ADMINISTER 10 MINUTES BEFORE FOOD DIRECTED. REFRIGERATE UN-OPENED PENS. DISCARD CARTRIDGE 28 DAYS AFTER OPENING. USES UP TO 100 UNITS THROUGHOUT THE DAY Indication: FOR DIABETES INSULIN,GLARGINE 100 UNT/ML 3ML SOLOSTAR INJECT 46 UNITS ACTIVE UNDER THE SKIN ONCE A DAY ADMINISTER AT SAME TIME EACH DAY DIRECTED. DISCARD ANY OPEN CARTRIDGE AFTER 28 DAYS. Indication: FOR DIABETES ISOSORBIDE MONONITRATE 30MG SA TAB TAKE ONE TABLET BY ACTIVE MOUTH ONCE A DAY TAKE ON EMPTY STOMACH. SWALLOW WHOLE. DO NOT CRUSH OR CHEW. Indication: FOR CHEST PAIN METOPROLOL SUCCINATE 25MG SA TAB TAKE ONE-HALF TABLET BY ACTIVE MOUTH ONCE A DAY SWALLOW WHOLE, DO NOT CRUSH OR CHEW (TABLETS MAY BE CUT IN HALF). Indication: FOR MYOCARDIAL INFARCTION NEEDLE,PEN 31G,5MM USE 1 NEEDLE UNDER THE SKIN 5 TIMES A ACTIVE DAY Indication: FOR INJECTION ON INSULIN ORACIT SOLN TAKE 15 ML BY MOUTH TWICE A DAY (MIX WITH 4 ACTIVE OUNCES OF WATER PRIOR TO DRINKING) Indication: FOR PREVENTION OF KIDNEY STONES TAMSULOSIN HCL 0.4MG CAP TAKE ONE CAPSULE BY MOUTH EVERY ACTIVE EVENING APPROXIMATELY 30 MINUTES AFTER THE SAME MEAL EACH DAY Indication: FOR BENIGN PROSTATIC HYPERPLASIA Non-VA ASPIRIN 81MG EC TAB 81MG BY MOUTH ONCE A DAY ACTIVE Indication: FOR CARDIOVASCULAR DISEASE Non-VA CHOLECALCIF 50MCG (D3-2,000UNIT) TAB 50MCG BY MOUTH ACTIVE ONCE A DAY Indication: FOR VITAMIN D DEFICIENCY Non-VA CITALOPRAM HYDROBROMIDE 40MG TAB 20MG BY MOUTH ACTIVE EVERY MORNING Indication: FOR DEPRESSION Non-VA PANTOPRAZOLE NA 40MG EC TAB 40MG BY MOUTH EVERY ACTIVE MORNING BEFORE A MEAL Indication: FOR GASTROESOPHAGEAL REFLUX DISEASE 14 Total Medications I have reviewed current medications w/ [place] at this visit. Efficacy and side effects of the medications were reviewed. [place] denies questions, concerns, or problems with medications unless addressed in notes above. Allergies/ Intolerances: CIPROFLOXACIN, LISINOPRIL OBJECTIVE --------- Records reviewed from consulting providers Vitals: Temperature:98 F [36.7 C] (10/06/2024 10:57) HR: 88 (10/06/2024 10:57) BP: Measurement DT BP 10/06/2024 10:57 117/74 09/05/2024 13:38 103/64 04/18/2024 11:02 129/79 Weight: 195 lb [88.45 kg] (10/06/2024 10:57) Patient Weight History - Last Four 1. 195.0 lbs. / 88.5 kg. on OCTOBER 06, 2024@10:57:46 2. 194.9 lbs. / 88.4 kg. on SEP 05, 2024@13:38:36 3. 191.4 lbs. / 86.8 kg. on APR 18, 2024@11:02:08 4. 190.4 lbs. / 86.4 kg. on APR 06, 2024@11:02:41 BMI: 28.0 PHYSICAL EXAM: General: no distress, well-nourished, oriented [...] mood within normal limits Labs: A1C: HGA1C 6.7 H % 04/06/2024 11:43 HGA1C 6.8 H % 09/03/2023 13:49 HGA1C 6.8 H % 05/05/2023 11:39 HGA1C 6.5 H % 10/15/2022 10:41 HGA1C 6.4 H % 07/23/2022 11:54 CBC: WBC 5.9 10*3/uL 02/08/2024 08:28 RBC [...] Specimen Test Name Result Units Ref Range 04/06/2024 11:43 PLASMA CREATININE 1.12 mg/dL 0.7 - 1.3 04/06/2024 11:43 PLASMA UREA NITROGEN 20.0 mg/dL 9.0 - 25.0 04/06/2024 11:43 PLASMA GLUCOSE 127 H mg/dL 72 - 99 04/06/2024 11:43 PLASMA SODIUM 141 mEq/L 136 - 145 04/06/2024 11:43 PLASMA POTASSIUM 4.9 mEq/L 3.5 - 5 04/06/2024 11:43 PLASMA CHLORIDE 106 mEq/L 98 - 107 04/06/2024 11:43 PLASMA CARBON DIOXIDE 23 mEq/L 22 - 31 04/06/2024 11:43 PLASMA CALCIUM 9.5 mg/dL 8.4 - 10.4 04/06/2024 11:43 PLASMA PROTEIN 7.1 g/dL 6 - 8.6 04/06/2024 11:43 PLASMA ALBUMIN 4.2 g/dL 3.4 - 5 04/06/2024 11:43 PLASMA TOTAL BILIRUBIN 1.6 H mg/dL 0.2 - 1.2 04/06/2024 11:43 PLASMA ALKALINE PHOSPHAT 157 H U/L 40 - 150 04/06/2024 11:43 PLASMA AST/SGOT 26 U/L 5 - 34 04/06/2024 11:43 PLASMA ALT/SGPT 20 U/L 8 - 40 04/06/2024 11:43 PLASMA EGFR (CKD-EPI 202 68.1 Ref: >=60 Comment: No hemolysis noted. 04/06/2024 11:43 BLOOD HGA1C 6.7 H % 4.0 - 6.0 02/08/2024 08:28 SERUM TSH 3.618 uIU/mL 0.47 - 5 Comment: TSH result may show an undetermined bias due to hemolysis. BMP: BMP PC STL No data available for: CREATININE UREA NITROGEN GLUCOSE SODIUM POTASSIUM CHLORIDE CARBON DIOXIDE CALCIUM EGFR (DISCONTINUED 08/29/21) Lipid: TRIGLYCERIDE 101 mg/dL 04/06/2024 11:43 CHOLESTEROL 145 mg/dL 04/06/2024 11:43 HDL(New) 41 mg/dL 04/06/2024 11:43 CALCULATED LDL 84 mg/dL 04/06/2024 11:43 TSH: TSH 3.618 uIU/mL 02/08/2024 08:28 Microalb/creat: CREATuF: 229.9 (04/06/24 11:49) M/CREAT: 90 (04/06/24 11:49) MICRAL: 206.9 (04/06/24 11:49) No MICRAL/CREAT RATIO (STL) data found Imaging results: ASSESSMENT/PLAN 1. Type 1 diabetes mellitus CGM summary over previous 2 weeks Time in range: - Very high (>250):3% - High (181-250):13% - Target range (70-180):81% - Low (54-69): 3% - Very Low (<54):1% Time CGM in use: 94% GMI: 6.6% Complications:CAD s/p stent and CABG x 3 in 2023, pacemaker/ defibrilator, neuropathy mentioned that recently he has been having trouble with driving low blood sugars, stating that frequently throughout the day in the afternoon he is having to take glucose to increase blood sugars. He states that he is slowly been decreasing his insulin to where he is up using about one third of what he used to be using. Risk versus benefit conversation then took place about potentially incorporating OmniPod 5, and stated that he would like to meet with clinical pharmacist to discuss further Plan: -Continue Lantus 15 units daily -Continue NovoLog, consider backing off from using up to 75 units daily to potentially using up to 50 to 60 units daily -Prescription renewed for OurStage G6 transmitter's and sensors -Referred to endocrinology clinical pharmacy team for consultation/introduction to potential OmniPod 5 starting -Return to clinic in 4 months -Advised to call should he have continued glycemic difficulty Reviewed insulin use - How to mimic function of healthy pancreas with basal and/or bolus injections of insulin - Hypoglycemia parameters reviewed with rule of 15 to use whn having a low glucose - Ensured patient knows how to apply injections of insulin (vial and/or pen insulin), correct application of pen needles, and filling techniques with traditional syringes - Ensured glucagon was discussed and/or prescribed at today's meeting Glucose results reviewed Foot Exam with primary care Eye appointment up-to-date Labs to be done today Reviewed goal A1c - (<8%, FBS 90-140, 2h PP <210 per [place] guidelines) Dx of DM1, role of insulin resistance & relative insulin deficiency reviewed. Medications & side effects reviewed. Reveiwed fdc complications of Diabetes- Including, but not limited to the ocular, renal, nervous, cardiovascular, and GI systems Stressed need for regular physical activity at least 30 minutes 4-5 days/week reviewed. Goal sugar, LDL, A1C, BP reviewed. 2. Neuropathy -Likely related to longstanding history of type 1 diabetes -Continue gabapentin 300 mg 3 times daily -Well-controlled at this time 3. Hypertension/CAD s/p stent and CABG x 3/CHF -Continue aspirin, statin, metoprolol, and isosorbide mononitrate -Entresto was stopped -Denies chest pain during today's meeting -Blood pressure = 117/74 Reviewed goal of blood pressure to be below 130/80 Emphasized importance of adequate blood pressure control, particularly to prevent heart attack, stroke, heart failure, kidney failure, and eye complications 4. Hyperlipidemia -Statin therapy -Most recent LDL = 84 -Continue current therapy -Check later this year Reviewed goal of LDL to be less than 70 while diabetic. Therapeutic guidelines suggest at least a moderate-inensity statin therapy - which has been shown to lower risk of cardiovascular events. Long-term side effects of noncompliance to lipid levels reviewed with patient including, but not limited to: heart attack, stroke, clots, and coronary artery disease 5. Vitligo - present 2-3 years -Check cortisol, TSH for potential endocrine polyglandular syndrome Education about next steps reviewed with patient. All additional questions answered during visit today Time spent with patient/caregiver: I personally spent 30 minutes today. This time includes preparing to [...] FLOR Romero, MSN, RN Nurse Practitioner Signed: 10/06/2024 11:38 10/06/2024 ADDENDUM STATUS: COMPLETED Correction: Chief complaint: SKY FUENTES is a 79-year-old WHITE MALE with a previous medical history of type 1 diabetes mellitus, hyperlipidemia, hypertension, myocardial infarction status post CABG x 3, and insulin use that presents today for diabetes management Identifying clinical pharmacists as additional signer to meet with to discuss OmniPod 5 given recent history of tumultuous insulin requirements /es/ FLOR Romero, MSN, RN Nurse Practitioner Signed: 10/06/2024 11:39 Receipt Acknowledged By: 10/07/2024 14:50 /ankit KEYES Clinical Design Assembler 10/07/2024 ADDENDUM STATUS: COMPLETED Attempted to contact to discuss possible interest in a insulin pump, no answer. Left VM requesting call back at [phone] ext [phone]. /reed/ RADHA KEYES Clinical Design Assembler Signed: 10/07/2024 14:51 DEVIN CARTER [facility] October 06, 2024 11:38 AM ADDENDUM: LOCAL TITLE: Addendum STANDARD TITLE: ADDENDUM DATE OF NOTE: OCTOBER 06, 2024@11:38:17 ENTRY DATE: OCTOBER 06, 2024@11:38:18 AUTHOR: RADHA FLOYD EXP COSIGNER: URGENCY: STATUS: COMPLETED Correction: Chief complaint: SKY FUENTES is a 79-year-old WHITE MALE with a previous medical history of type 1 diabetes mellitus, hyperlipidemia, hypertension, myocardial infarction status post CABG x 3, and insulin use that presents today for diabetes management Identifying clinical pharmacists as additional signer to meet with to discuss OmniPod 5 given recent history of tumultuous insulin requirements /reed/ FLOR Romero, MSN, RN Nurse Practitioner Signed: 10/06/2024 11:39 Receipt Acknowledged By: 10/07/2024 14:50 /ankit KEYES Clinical Design Assembler --- Original Document --- 10/06/24 ENDOCRINOLOGY OUTPATIENT FOLLOW UP STL: ENDOCRINOLOGY FOLLOW-UP NOTE = Date of visit: OCTOBER 06, 2024 SUBJECTIVE Source(s) of history: Patient and/or other Reliability of source(s): Reliable CHIEF COMPLAINT: SKY FUENTES is a 79-year-old WHITE MALE with a previous medical history of , that presents today for diabetes management INTERIM HX: Last plan included: 1. t1dm with insulin use CGM summary [...] inject insulin up to 5 times daily -[place] has glucose tablets and glucagon at home in case of emergent hypoglycemia -Return to clinic in 6 months -Advised to call should he have glycemic control issues - mention very briefly that he could be interested in switching to a pump in the future will address at next appointment -Veterans A1c may be elevated as he was having difficulty with glucose control while traveling in [place] currently taking: - 15 units lantus daily (down from 46) - novolog up to 60-75units daily (down from 100) CGM summary over previous 2 weeks Time in range: - Very high (>250):3% - High (181-250):13% - Target range (70-180):81% - Low (54-69): 3% - Very Low (<54):1% Time CGM in use: 94% GMI: 6.6% Any complications of diabetes: CAD s/p stent [...] Annual dilated eye exam INTERIM MEDICAL HISTORY: admitting to occasional instances where he will have a low blood pressure and a low blood sugar at the same time. HISTORY: Medical History: 1) Kidney stone (SNOMED CT [id number]) 2) Mixed hyperlipidemia (SNOMED CT 377092043) 3) Permanent cardiac pacemaker (SNOMED CT [id number]) 4) Elevated Liver Function Tests 5) Benign [...] grafting 20) Impacted cerumen of bilateral ears Surgical History: Any surgeries since previous meeting ROS: Negative except as noted in the HPI Active Outpatient Medications (including Supplies): ATORVASTATIN CALCIUM 80MG TAB TAKE ONE TABLET BY MOUTH ACTIVE EVERY EVENING FOR CHOLESTEROL. REPORT ANY UNEXPLAINED MUSCLE PAIN/WEAKNESS TO PROVIDER. Indication: FOR HIGH CHOLESTEROL GABAPENTIN 300MG CAP TAKE ONE CAPSULE BY MOUTH THREE TIMES ACTIVE A DAY FOR PAIN Indication: FOR NERVE PAIN GLUCOSE SENSOR DEXCOM G6 USE 1 SENSOR UNDER THE SKIN EVERY ACTIVE 10 DAYS TO MONITOR GLUCOSE READINGS INSULIN,ASPART(EQV-NOVLG)10 0UN/ML FLXPEN INJECT 25 UNITS ACTIVE UNDER THE SKIN THREE TIMES A DAY BEFORE MEALS ADMINISTER 10 MINUTES BEFORE FOOD DIRECTED. REFRIGERATE UN-OPENED PENS. DISCARD CARTRIDGE 28 DAYS AFTER OPENING. USES UP TO 100 UNITS THROUGHOUT THE DAY Indication: FOR DIABETES INSULIN,GLARGINE 100 UNT/ML 3ML SOLOSTAR INJECT 46 UNITS ACTIVE UNDER THE SKIN ONCE A DAY ADMINISTER AT SAME TIME EACH DAY DIRECTED. DISCARD ANY OPEN CARTRIDGE AFTER 28 DAYS. Indication: FOR DIABETES ISOSORBIDE MONONITRATE 30MG SA TAB TAKE ONE TABLET BY ACTIVE MOUTH ONCE A DAY TAKE ON EMPTY STOMACH. SWALLOW WHOLE. DO NOT CRUSH OR CHEW. Indication: FOR CHEST PAIN METOPROLOL SUCCINATE 25MG SA TAB TAKE ONE-HALF TABLET BY ACTIVE MOUTH ONCE A DAY SWALLOW WHOLE, DO NOT CRUSH OR CHEW (TABLETS MAY BE CUT IN HALF). Indication: FOR MYOCARDIAL INFARCTION NEEDLE,PEN 31G,5MM USE 1 NEEDLE UNDER THE SKIN 5 TIMES A ACTIVE DAY Indication: FOR INJECTION ON INSULIN ORACIT SOLN TAKE 15 ML BY MOUTH TWICE A DAY (MIX WITH 4 ACTIVE OUNCES OF WATER PRIOR TO DRINKING) Indication: FOR PREVENTION OF KIDNEY STONES TAMSULOSIN HCL 0.4MG CAP TAKE ONE CAPSULE BY MOUTH EVERY ACTIVE EVENING APPROXIMATELY 30 MINUTES AFTER THE SAME MEAL EACH DAY Indication: FOR BENIGN PROSTATIC HYPERPLASIA Non-VA ASPIRIN 81MG EC TAB 81MG BY MOUTH ONCE A DAY ACTIVE Indication: FOR CARDIOVASCULAR DISEASE Non-VA CHOLECALCIF 50MCG (D3-2,000UNIT) TAB 50MCG BY MOUTH ACTIVE ONCE A DAY Indication: FOR VITAMIN D DEFICIENCY Non-VA CITALOPRAM HYDROBROMIDE 40MG TAB 20MG BY MOUTH ACTIVE EVERY MORNING Indication: FOR DEPRESSION Non-VA PANTOPRAZOLE NA 40MG EC TAB 40MG BY MOUTH EVERY ACTIVE MORNING BEFORE A MEAL Indication: FOR GASTROESOPHAGEAL REFLUX DISEASE 14 Total Medications I have reviewed current medications w/ [place] at this visit. Efficacy and side effects of the medications were reviewed. denies questions, concerns, or problems with medications unless addressed in notes above. Allergies/ Intolerances: CIPROFLOXACIN, LISINOPRIL OBJECTIVE --------- Records reviewed from consulting providers Vitals: Temperature:98 F [36.7 C] (10/06/2024 10:57) HR: 88 (10/06/2024 10:57) BP: Measurement DT BP 10/06/2024 10:57 117/74 09/05/2024 13:38 103/64 04/18/2024 11:02 129/79 Weight: 195 lb [88.45 kg] (10/06/2024 10:57) Patient Weight History - Last Four 1. 195.0 lbs. / 88.5 kg. on OCTOBER 06, 2024@10:57:46 2. 194.9 lbs. / 88.4 kg. on SEP 05, 2024@13:38:36 3. 191.4 lbs. / 86.8 kg. on APR 18, 2024@11:02:08 4. 190.4 lbs. / 86.4 kg. on APR 06, 2024@11:02:41 BMI: 28.0 PHYSICAL EXAM: General: no distress, well-nourished, oriented [...] mood within normal limits Labs: A1C: HGA1C 6.7 H % 04/06/2024 11:43 HGA1C 6.8 H % 09/03/2023 13:49 HGA1C 6.8 H % 05/05/2023 11:39 HGA1C 6.5 H % 10/15/2022 10:41 HGA1C 6.4 H % 07/23/2022 11:54 CBC: WBC 5.9 10*3/uL 02/08/2024 08:28 RBC [...] Specimen Test Name Result Units Ref Range 04/06/2024 11:43 PLASMA CREATININE 1.12 mg/dL 0.7 - 1.3 04/06/2024 11:43 PLASMA UREA NITROGEN 20.0 mg/dL 9.0 - 25.0 04/06/2024 11:43 PLASMA GLUCOSE 127 H mg/dL 72 - 99 04/06/2024 11:43 PLASMA SODIUM 141 mEq/L 136 - 145 04/06/2024 11:43 PLASMA POTASSIUM 4.9 mEq/L 3.5 - 5 04/06/2024 11:43 PLASMA CHLORIDE 106 mEq/L 98 - 107 04/06/2024 11:43 PLASMA CARBON DIOXIDE 23 mEq/L 22 - 31 04/06/2024 11:43 PLASMA CALCIUM 9.5 mg/dL 8.4 - 10.4 04/06/2024 11:43 PLASMA PROTEIN 7.1 g/dL 6 - 8.6 04/06/2024 11:43 PLASMA ALBUMIN 4.2 g/dL 3.4 - 5 04/06/2024 11:43 PLASMA TOTAL BILIRUBIN 1.6 H mg/dL 0.2 - 1.2 04/06/2024 11:43 PLASMA ALKALINE PHOSPHAT 157 H U/L 40 - 150 04/06/2024 11:43 PLASMA AST/SGOT 26 U/L 5 - 34 04/06/2024 11:43 PLASMA ALT/SGPT 20 U/L 8 - 40 04/06/2024 11:43 PLASMA EGFR (CKD-EPI 202 68.1 Ref: >=60 Comment: No hemolysis noted. 04/06/2024 11:43 BLOOD HGA1C 6.7 H % 4.0 - 6.0 02/08/2024 08:28 SERUM TSH 3.618 uIU/mL 0.47 - 5 Comment: TSH result may show an undetermined bias due to hemolysis. BMP: BMP PC STL No data available for: CREATININE UREA NITROGEN GLUCOSE SODIUM POTASSIUM CHLORIDE CARBON DIOXIDE CALCIUM EGFR (DISCONTINUED 08/29/21) Lipid: TRIGLYCERIDE 101 mg/dL 04/06/2024 11:43 CHOLESTEROL 145 mg/dL 04/06/2024 11:43 HDL(New) 41 mg/dL 04/06/2024 11:43 CALCULATED LDL 84 mg/dL 04/06/2024 11:43 TSH: TSH 3.618 uIU/mL 02/08/2024 08:28 Microalb/creat: CREATuF: 229.9 (04/06/24 11:49) M/CREAT: 90 (04/06/24 11:49) MICRAL: 206.9 (04/06/24 11:49) No MICRAL/CREAT RATIO (STL) data found Imaging results: ASSESSMENT/PLAN 1. Type 1 diabetes mellitus CGM summary over previous 2 weeks Time in range: - Very high (>250):3% - High (181-250):13% - Target range (70-180):81% - Low (54-69): 3% - Very Low (<54):1% Time CGM in use: 94% GMI: 6.6% Complications:CAD s/p stent and CABG x 3 in 2023, pacemaker/ defibrilator, neuropathy mentioned that recently he has been having trouble with driving low blood sugars, stating that frequently throughout the day in the afternoon he is having to take glucose to increase blood sugars. He states that he is slowly been decreasing his insulin to where he is up using about one third of what he used to be using. Risk versus benefit conversation then took place about potentially incorporating OmniPod 5, and stated that he would like to meet with clinical pharmacist to discuss further Plan: -Continue Lantus 15 units daily -Continue NovoLog, consider backing off from using up to 75 units daily to potentially using up to 50 to 60 units daily -Prescription renewed for Dexcom G6 transmitter's and sensors -Referred to endocrinology clinical pharmacy team for consultation/introduction to potential OmniPod 5 starting -Return to clinic in 4 months -Advised to call should he have continued glycemic difficulty Reviewed insulin use - How to mimic function of healthy pancreas with basal and/or bolus injections of insulin - Hypoglycemia parameters reviewed with rule of 15 to use whn having a low glucose - Ensured patient knows how to apply injections of insulin (vial and/or pen insulin), correct application of pen needles, and filling techniques with traditional syringes - Ensured glucagon was discussed and/or prescribed at today's meeting Glucose results reviewed Foot Exam with primary care Eye appointment up-to-date Labs to be done today Reviewed goal A1c - (<8%, FBS 90-140, 2h PP <210 per [facility] guidelines) Dx of DM1, role of insulin resistance & relative insulin deficiency reviewed. Medications & side effects reviewed. Reveiwed fdc complications of Diabetes- Including, but not limited to the ocular, renal, nervous, cardiovascular, and GI systems Stressed need for regular physical activity at least 30 minutes 4-5 days/week reviewed. Goal sugar, LDL, A1C, BP reviewed. 2. Neuropathy -Likely related to longstanding history of type 1 diabetes -Continue gabapentin 300 mg 3 times daily -Well-controlled at this time 3. Hypertension/CAD s/p stent and CABG x 3/CHF -Continue aspirin, statin, metoprolol, and isosorbide mononitrate -Entresto was stopped -Denies chest pain during today's meeting -Blood pressure = 117/74 Reviewed goal of blood pressure to be below 130/80 Emphasized importance of adequate blood pressure control, particularly to prevent heart attack, stroke, heart failure, kidney failure, and eye complications 4. Hyperlipidemia -Statin therapy -Most recent LDL = 84 -Continue current therapy -Check later this year Reviewed goal of LDL to be less than 70 while diabetic. Therapeutic guidelines suggest at least a moderate-inensity statin therapy - which has been shown to lower risk of cardiovascular events. Long-term side effects of noncompliance to lipid levels reviewed with patient including, but not limited to: heart attack, stroke, clots, and coronary artery disease 5. Vitligo - present 2-3 years -Check cortisol, TSH for potential endocrine polyglandular syndrome Education about next steps reviewed with patient. All additional questions answered during visit today Time spent with patient/caregiver: I personally spent 30 minutes today. This time includes preparing to [...] FLOR Romero, MSN, RN Nurse Practitioner Signed: 10/06/2024 11:38 10/07/2024 ADDENDUM STATUS: UNSIGNED You may not VIEW this UNSIGNED Addendum. RADHA FLOYD [facility] October 06, 2024 11:03 AM ENDOCRINOLOGY OUTPATIENT NOTE: LOCAL TITLE: ENDOCRINOLOGY OUTPATIENT FOLLOW UP [facility] STANDARD TITLE: ENDOCRINOLOGY OUTPATIENT NOTE DATE OF NOTE: OCTOBER 06, 2024@11:03 ENTRY DATE: OCTOBER 06, 2024@11:03:24 AUTHOR: RADHA FLOYD EXP COSIGNER: URGENCY: STATUS: COMPLETED ENDOCRINOLOGY OUTPATIENT FOLLOW UP [facility] Has ADDENDA ENDOCRINOLOGY FOLLOW-UP NOTE = Date of visit: OCTOBER 06, 2024 SUBJECTIVE Source(s) of history: Patient and/or other Reliability of source(s): Reliable CHIEF COMPLAINT: SKY FUENTES is a 79-year-old WHITE MALE with a previous medical history of , that presents today for diabetes management INTERIM HX: Last plan included: 1. t1dm with insulin use CGM summary over previous 2 weeks Time in range: - Very high (>250): 1% - High (181-250): 14% - Target range (70-180): 83% - Low (54-69): 2% - Very Low (<54): 0% Time CGM in use: 93% GMI: 6.5% Plan: -[place] would like to switch to insulin pens [...] call should he have glycemic control issues -[place] mention very briefly that he could be interested in switching to a pump in the future will address at next appointment -[facility] A1c may be elevated as he was having difficulty with glucose control while traveling in [place] currently taking: - 15 units lantus daily (down from 46) - novolog up to 60-75units daily (down from 100) CGM summary over previous 2 weeks Time in range: - Very high (>250):3% - High (181-250):13% - Target range (70-180):81% - Low (54-69): 3% - Very Low (<54):1% Time CGM in use: 94% GMI: 6.6% Any complications of diabetes: CAD s/p stent [...] (dx age 37) - Last A1c 6.5 5/23 - optimize glycemic control per PCP - Annual dilated eye exam INTERIM MEDICAL HISTORY: [place] admitting to occasional instances where he will have a low blood pressure and a low blood sugar at the same time. HISTORY: Medical History: 1) Kidney stone (SNOMED CT 24812447) 2) Mixed hyperlipidemia (SNOMED CT 334593987) 3) Permanent cardiac pacemaker (SNOMED CT [id number]) 4) Elevated Liver Function Tests 5) Benign [...] grafting 20) Impacted cerumen of bilateral ears Surgical History: Any surgeries since previous meeting ROS: Negative except as noted in the HPI Active Outpatient Medications (including Supplies): ATORVASTATIN CALCIUM 80MG TAB TAKE ONE TABLET BY MOUTH ACTIVE EVERY EVENING FOR CHOLESTEROL. REPORT ANY UNEXPLAINED MUSCLE PAIN/WEAKNESS TO PROVIDER. Indication: FOR HIGH CHOLESTEROL GABAPENTIN 300MG CAP TAKE ONE CAPSULE BY MOUTH THREE TIMES ACTIVE A DAY FOR PAIN Indication: FOR NERVE PAIN GLUCOSE SENSOR DEXCOM G6 USE 1 SENSOR UNDER THE SKIN EVERY ACTIVE 10 DAYS TO MONITOR GLUCOSE READINGS INSULIN,ASPART(EQV-NOVLG)10 0UN/ML FLXPEN INJECT 25 UNITS ACTIVE UNDER THE SKIN THREE TIMES A DAY BEFORE MEALS ADMINISTER 10 MINUTES BEFORE FOOD DIRECTED. REFRIGERATE UN-OPENED PENS. DISCARD CARTRIDGE 28 DAYS AFTER OPENING. USES UP TO 100 UNITS THROUGHOUT THE DAY Indication: FOR DIABETES INSULIN,GLARGINE 100 UNT/ML 3ML SOLOSTAR INJECT 46 UNITS ACTIVE UNDER THE SKIN ONCE A DAY ADMINISTER AT SAME TIME EACH DAY DIRECTED. DISCARD ANY OPEN CARTRIDGE AFTER 28 DAYS. Indication: FOR DIABETES ISOSORBIDE MONONITRATE 30MG SA TAB TAKE ONE TABLET BY ACTIVE MOUTH ONCE A DAY TAKE ON EMPTY STOMACH. SWALLOW WHOLE. DO NOT CRUSH OR CHEW. Indication: FOR CHEST PAIN METOPROLOL SUCCINATE 25MG SA TAB TAKE ONE-HALF TABLET BY ACTIVE MOUTH ONCE A DAY SWALLOW WHOLE, DO NOT CRUSH OR CHEW (TABLETS MAY BE CUT IN HALF). Indication: FOR MYOCARDIAL INFARCTION NEEDLE,PEN 31G,5MM USE 1 NEEDLE UNDER THE SKIN 5 TIMES A ACTIVE DAY Indication: FOR INJECTION ON INSULIN ORACIT SOLN TAKE 15 ML BY MOUTH TWICE A DAY (MIX WITH 4 ACTIVE OUNCES OF WATER PRIOR TO DRINKING) Indication: FOR PREVENTION OF KIDNEY STONES TAMSULOSIN HCL 0.4MG CAP TAKE ONE CAPSULE BY MOUTH EVERY ACTIVE EVENING APPROXIMATELY 30 MINUTES AFTER THE SAME MEAL EACH DAY Indication: FOR BENIGN PROSTATIC HYPERPLASIA Non-VA ASPIRIN 81MG EC TAB 81MG BY MOUTH ONCE A DAY ACTIVE Indication: FOR CARDIOVASCULAR DISEASE Non-VA CHOLECALCIF 50MCG (D3-2,000UNIT) TAB 50MCG BY MOUTH ACTIVE ONCE A DAY Indication: FOR VITAMIN D DEFICIENCY Non-VA CITALOPRAM HYDROBROMIDE 40MG TAB 20MG BY MOUTH ACTIVE EVERY MORNING Indication: FOR DEPRESSION Non-VA PANTOPRAZOLE NA 40MG EC TAB 40MG BY MOUTH EVERY ACTIVE MORNING BEFORE A MEAL Indication: FOR GASTROESOPHAGEAL REFLUX DISEASE 14 Total Medications I have reviewed current medications w/ [place] at this visit. Efficacy and side effects of the medications were reviewed. [place] denies questions, concerns, or problems with medications unless addressed in notes above. Allergies/ Intolerances: CIPROFLOXACIN, LISINOPRIL OBJECTIVE --------- Records reviewed from consulting providers Vitals: Temperature:98 F [36.7 C] (10/06/2024 10:57) HR: 88 (10/06/2024 10:57) BP: Measurement DT BP 10/06/2024 10:57 117/74 09/05/2024 13:38 103/64 04/18/2024 11:02 129/79 Weight: 195 lb [88.45 kg] (10/06/2024 10:57) Patient Weight History - Last Four 1. 195.0 lbs. / 88.5 kg. on OCTOBER 06, 2024@10:57:46 2. 194.9 lbs. / 88.4 kg. on SEP 05, 2024@13:38:36 3. 191.4 lbs. / 86.8 kg. on APR 18, 2024@11:02:08 4. 190.4 lbs. / 86.4 kg. on APR 06, 2024@11:02:41 BMI: 28.0 PHYSICAL EXAM: General: no distress, well-nourished, oriented [...] mood within normal limits Labs: A1C: HGA1C 6.7 H % 04/06/2024 11:43 HGA1C 6.8 H % 09/03/2023 13:49 HGA1C 6.8 H % 05/05/2023 11:39 HGA1C 6.5 H % 10/15/2022 10:41 HGA1C 6.4 H % 07/23/2022 11:54 CBC: WBC 5.9 10*3/uL 02/08/2024 08:28 RBC [...] Specimen Test Name Result Units Ref Range 04/06/2024 11:43 PLASMA CREATININE 1.12 mg/dL 0.7 - 1.3 04/06/2024 11:43 PLASMA UREA NITROGEN 20.0 mg/dL 9.0 - 25.0 04/06/2024 11:43 PLASMA GLUCOSE 127 H mg/dL 72 - 99 04/06/2024 11:43 PLASMA SODIUM 141 mEq/L 136 - 145 04/06/2024 11:43 PLASMA POTASSIUM 4.9 mEq/L 3.5 - 5 04/06/2024 11:43 PLASMA CHLORIDE 106 mEq/L 98 - 107 04/06/2024 11:43 PLASMA CARBON DIOXIDE 23 mEq/L 22 - 31 04/06/2024 11:43 PLASMA CALCIUM 9.5 mg/dL 8.4 - 10.4 04/06/2024 11:43 PLASMA PROTEIN 7.1 g/dL 6 - 8.6 04/06/2024 11:43 PLASMA ALBUMIN 4.2 g/dL 3.4 - 5 04/06/2024 11:43 PLASMA TOTAL BILIRUBIN 1.6 H mg/dL 0.2 - 1.2 04/06/2024 11:43 PLASMA ALKALINE PHOSPHAT 157 H U/L 40 - 150 04/06/2024 11:43 PLASMA AST/SGOT 26 U/L 5 - 34 04/06/2024 11:43 PLASMA ALT/SGPT 20 U/L 8 - 40 04/06/2024 11:43 PLASMA EGFR (CKD-EPI 202 68.1 Ref: >=60 Comment: No hemolysis noted. 04/06/2024 11:43 BLOOD HGA1C 6.7 H % 4.0 - 6.0 02/08/2024 08:28 SERUM TSH 3.618 uIU/mL 0.47 - 5 Comment: TSH result may show an undetermined bias due to hemolysis. BMP: BMP PC STL No data available for: CREATININE UREA NITROGEN GLUCOSE SODIUM POTASSIUM CHLORIDE CARBON DIOXIDE CALCIUM EGFR (DISCONTINUED 08/29/21) Lipid: TRIGLYCERIDE 101 mg/dL 04/06/2024 11:43 CHOLESTEROL 145 mg/dL 04/06/2024 11:43 HDL(New) 41 mg/dL 04/06/2024 11:43 CALCULATED LDL 84 mg/dL 04/06/2024 11:43 TSH: TSH 3.618 uIU/mL 02/08/2024 08:28 Microalb/creat: CREATuF: 229.9 (04/06/24 11:49) M/CREAT: 90 (04/06/24 11:49) MICRAL: 206.9 (04/06/24 11:49) No MICRAL/CREAT RATIO (STL) data found Imaging results: ASSESSMENT/PLAN 1. Type 1 diabetes mellitus CGM summary over previous 2 weeks Time in range: - Very high (>250):3% - High (181-250):13% - Target range (70-180):81% - Low (54-69): 3% - Very Low (<54):1% Time CGM in use: 94% GMI: 6.6% Complications:CAD s/p stent and CABG x 3 in 2023, pacemaker/ defibrilator, neuropathy mentioned that recently he has been having trouble with driving low blood sugars, stating that frequently throughout the day in the afternoon he is having to take glucose to increase blood sugars. He states that he is slowly been decreasing his insulin to where he is up using about one third of what he used to be using. Risk versus benefit conversation then took place about potentially incorporating OmniPod 5, and stated that he would like to meet with clinical pharmacist to discuss further Plan: -Continue Lantus 15 units daily -Continue NovoLog, consider backing off from using up to 75 units daily to potentially using up to 50 to 60 units daily -Prescription renewed for Dexcom G6 transmitter's and sensors -Referred to endocrinology clinical pharmacy team for consultation/introduction to potential OmniPod 5 starting -Return to clinic in 4 months -Advised to call should he have continued glycemic difficulty Reviewed insulin use - How to mimic function of healthy pancreas with basal and/or bolus injections of insulin - Hypoglycemia parameters reviewed with rule of 15 to use whn having a low glucose - Ensured patient knows how to apply injections of insulin (vial and/or pen insulin), correct application of pen needles, and filling techniques with traditional syringes - Ensured glucagon was discussed and/or prescribed at today's meeting Glucose results reviewed Foot Exam with primary care Eye appointment up-to-date Labs to be done today Reviewed goal A1c - (<8%, FBS 90-140, 2h PP <210 per [facility] guidelines) Dx of DM1, role of insulin resistance & relative insulin deficiency reviewed. Medications & side effects reviewed. Reveiwed fdc complications of Diabetes- Including, but not limited to the ocular, renal, nervous, cardiovascular, and GI systems Stressed need for regular physical activity at least 30 minutes 4-5 days/week reviewed. Goal sugar, LDL, A1C, BP reviewed. 2. Neuropathy -Likely related to longstanding history of type 1 diabetes -Continue gabapentin 300 mg 3 times daily -Well-controlled at this time 3. Hypertension/CAD s/p stent and CABG x 3/CHF -Continue aspirin, statin, metoprolol, and isosorbide mononitrate -Entresto was stopped -Denies chest pain during today's meeting -Blood pressure = 117/74 Reviewed goal of blood pressure to be below 130/80 Emphasized importance of adequate blood pressure control, particularly to prevent heart attack, stroke, heart failure, kidney failure, and eye complications 4. Hyperlipidemia -Statin therapy -Most recent LDL = 84 -Continue current therapy -Check later this year Reviewed goal of LDL to be less than 70 while diabetic. Therapeutic guidelines suggest at least a moderate-inensity statin therapy - which has been shown to lower risk of cardiovascular events. Long-term side effects of noncompliance to lipid levels reviewed with patient including, but not limited to: heart attack, stroke, clots, and coronary artery disease 5. Vitligo - present 2-3 years -Check cortisol, TSH for potential endocrine polyglandular syndrome Education about next steps reviewed with patient. All additional questions answered during visit today Time spent with patient/caregiver: I personally spent 30 minutes today. This time includes preparing to [...] FLOR Romero, MSN, RN Nurse Practitioner Signed: 10/06/2024 11:38 10/06/2024 ADDENDUM STATUS: COMPLETED Correction: Chief complaint: SKY FUENTES is a 79-year-old WHITE MALE with a previous medical history of type 1 diabetes mellitus, hyperlipidemia, hypertension, myocardial infarction status post CABG x 3, and insulin use that presents today for diabetes management Identifying clinical pharmacists as additional signer to meet with to discuss OmniPod 5 given recent history of tumultuous insulin requirements /reed/ FLOR Romero, MSN, RN Nurse Practitioner Signed: 10/06/2024 11:39 Receipt Acknowledged By: 10/07/2024 14:50 /reed/ RADHA KEYES Clinical Design Assembler 10/07/2024 ADDENDUM STATUS: COMPLETED Attempted to contact to discuss possible interest in a insulin pump, no answer. Left VM requesting call back at [phone] ext [phone]. /reed/ RADHA KEYES Clinical Design Assembler Signed: 10/07/2024 14:51 10/12/2024 ADDENDUM STATUS: COMPLETED Received form from [place] Office of global safety officer, [employer] safety Department. To complete medical report for conditions that may impair Driving safely. Please provide your assessment regarding [employer] safely. alerting endocrinology PHYSICIAN GENERAL INTERNAL MEDICINE, RADHA FLOYD /reed/ Devin Carter MD. Staff Physcian. Signed: 10/12/2024 16:50 Receipt Acknowledged By: * AWAITING SIGNATURE * RADHA FLOYD [facility]
--- OUTSIDE RECORDS SUMMARY | 2024-10-12 09:00 | XMS_ITS | Encounter Summary ---
Author Name [facility] [facility] [place] [facility] [place] Address [address] [place] [address] Care Team Providers Care Work Order Detailer Name Role Phone RAUL DEVIN Primary Care [...] PART A Jun 01, 2012 PART A [id number] [phone] ALFREDO,SENA VID PATIENT MEDICARE (WNR) MEDICARE (M) PART B Jun 01, 2012 PART B [id number] ALFREDO,SENA VID PATIENT MEDICARE (WNR) MEDICARE (M) PART B Jun 01, 2012 PART B [id number] [phone] ALFREDO,DA VID PATIENT MEDICARE (WNR) MEDICARE (M) PART A Jun 01, 2012 PART A [id number] ALFREDO,DA VID PATIENT MEDICARE (WNR) MEDICARE (M) PART A Jun 01, 1999 PART A [id number] SENA SOTO PATIENT Selected Encounter This section includes the information on record at [place] for the Encounter. Date/Time Encounter Type Encounter Description Reason Provider Source October 12, 2024 02:00 PM OFFICE O/P EST MOD 30 MIN PRIMARY CARE/MEDICINE ICD-10-CM I25.810 Atherosclerosis of CABG w/o angina pectoris RAUL,DEVIN [facility] Encounter Template Text not used by [place] Assessments - Encounter Diagnoses This section includes the primary and secondary diagnoses documented for the Encounter. 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 This section includes future appointments and future orders which are active, pending or scheduled. Future Appointments This section includes appointments that were scheduled to occur 6 months from the date of the Encounter, up to a maximum of 20 appointments. The data comes from all [place] treatment facilities. Appointment Date/Time Appointment Type Appointme nt Facility Name October 18, 2024 10:00 AM AMBULATORY - MEDICINE [facility] October 25, 2024 01:00 PM AMBULATORY - NONE [facility] Nov 21, 2024 08:30 AM AMBULATORY - MEDICINE [facility] Nov 21, 2024 11:00 AM AMBULATORY - NONE [facility] Dec 06, 2024 10:40 AM AMBULATORY - MEDICINE [facility] Dec 08, 2024 12:15 PM AMBULATORY - MEDICINE [facility] Dec 08, 2024 12:30 PM AMBULATORY - NONE . [facility] Dec 28, 2024 02:30 PM AMBULATORY - MEDICINE [facility] Jan 26, 2025 12:45 PM AMBULATORY - MEDICINE [facility] Feb 08, 2025 12:30 PM AMBULATORY - MEDICINE [facility] Feb 23, 2025 01:00 PM AMBULATORY - MEDICINE [facility] Mar 07, 2025 12:30 PM AMBULATORY - MEDICINE [facility] Apr 03, 2025 11:00 AM AMBULATORY - SURGERY . [facility] Lab Results: +/- 30 days of the [...] Type Comment October 12, 2024 02:02 PM [facility] GLUCOSE,BLOOD-poct (STL) BLOOD Specimen Type: BLOOD Comment: Test Performed by: [id number] Meter #: [id number] Ordering Provider: DEVIN CARTER Report Released Date/Time: October 12, 2024 03:22 PM Reporting Lab: [address] [address] Performing Lab: [address] [address] GLUCOSE,BLOOD-poct (STL) 114 mg/dL H 72-99 October 06, 2024 11:34 AM [facility] C-PEPTIDE SERUM Specimen Type: SERUM Comment: Test Performed by [facility], [address] [place], [place] Shon Markham M.D., Ph.D., Director of Laboratories , CLIA [id number] Test Performed by [facility] [place], [address] [place], [place] Shon Markham M.D., Ph.D., Director of Laboratories , [facility] [id number] Ordering Provider: TRENT OCAMPO Report Released Date/Time: October 06, 2024 11:23 AM Reporting Lab: [facility] [address] [facility] [address] Performing Lab: [address] C-PEPTIDE 0.75 ng/mL L 0.80-3.85 October 06, 2024 11:34 AM [facility] CORTISOL(STL Eff 03/08) PLASMA Specimen Type: PLASMA Comment: No hemolysis noted. Ordering Provider: TRENT OCAMPO Report Released Date/Time: October 06, 2024 11:23 AM Reporting Lab: [address] [address] Performing Lab: [address] [address] CORTISOL(STL Eff 03/08) 8.100 ug/dL October 06, 2024 11:34 AM [facility] HGA1C BLOOD Specimen Type: BLOOD No comment entered. Ordering Provider: TRENT OCAMPO Report Released Date/Time: October 06, 2024 11:23 AM Reporting Lab: [facility] [address] [place] [address] Performing Lab: [address] [address] HGA1C 7.2 H 4.0-6.0 October 06, 2024 11:34 AM [facility] TSH (MA-PB) SERUM Specimen Type: SERUM No comment entered. Ordering Provider: TRENT OCAMPO Report Released Date/Time: October 06, 2024 11:23 AM Reporting Lab: [address] [address] Performing Lab: [address] [address] TSH 2.116 u[IU]/mL 0.47-5 October 06, 2024 11:34 AM [facility] COMPREHENSIVE METABOLIC PANEL PLASMA Specimen Type: PLASMA Comment: No hemolysis noted. Ordering Provider: TRENT OCAMPO Report Released Date/Time: October 06, 2024 11:23 AM Reporting Lab: [facility] [address] [facility] [address] Performing Lab: [facility] [address] [facility] [address] CREATININE 0.99 mg/dL 0.7-1.3 UREA NITROGEN 23.5 [...] Height Weight Body Mass Index Source October 12, 2024 01:56 PM 98.4 89 134/80 16 97 0 70 196.6 28 [facility] Social History: Smoking Status (Most current) and Tobacco Use (All prior to encounter date) This section includes the most current, and the historical, smoking and tobacco- related health factors from the [place] facility where the Encounter took place. Current Smoking Status This section includes the most current smoking, or tobacco-related health factor, from the [place] facility where the Encounter took place. Date/Time Current Smoking Status Comment Lux alfonso Apr 18, 2024 11:00 AM [place]-TOBACCO NEVER U SED CIGARETTES [facility] Tobacco Use History This section includes a history of the smoking, or tobacco-related health factors, that were collected on or before the date of the Encounter. The data comes from the [place] facility where the Encounter took place. Date/Time Smoking Status/Tobacco Use Comment F acility Apr 18, 2024 11:00 AM [place]-TOBACCO NEVER U SED OTHER TYPE [facility] Nov 09, 2020 11:00 AM VA-TOBACCO NEVER USED [facility] October 22, 2017 03:06 PM VA-TOBACCO NEVER USED [facility] Mar 06, 2017 01:35 PM LIFETIME NON-USER OF TOBACCO [facility] Advance Directives: All historical and current Section Date Range: From patient's date of to the date document was created. This section includes ALL of a patient's completed or amended [place] Advance and Rescinded Directives. The entries below indicate that a directive exists for the patient, but an actual copy is not included with this document. The data comes from all [place] facilities. Date Advance Directives Provider Source Nov 19, 2015 ADVANCE DIRECTIVE DISCUSSION JENNIFER LONDONO [facility] Encounter Notes: All associated encounter notes This section contains the clinical notes associated to the Encounter. Date/Time Encounter Note(s) Provider Source Nov 21, 2024 09:13 AM ADDENDUM: LOCAL TITLE: Addendum STANDARD TITLE: ADDENDUM DATE OF NOTE: NOV 21, 2024@09:13:55 ENTRY DATE: NOV 21, 2024@09:13:56 AUTHOR: DEVIN CARTER EXP COSIGNER: URGENCY: STATUS: COMPLETED Waqas can you print med list for Sky Soto [id number]. thanks /reed/ Devin Carter MD. Staff Physan. Signed: 11/21/2024 09:14 Receipt Acknowledged By: 11/21/2024 09:47 /reed/ TRENT NGUYEN BSN RN REGISTERED NURSE --- Original Document --- 10/12/24 PRIMARY CARE PROVIDER ESTABLISHED VISIT STL: Patient is 79 and WHITE Self Identified Gender - NONE FOUND Reason for visit:Scheduled follow-up Chief Complaint: vet is here for reg scheduled follow up History of Present Illness: [place] Office of batch dumper, Hose Operator safety Department. To complete medical report for conditions that may impair Driving safely. 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 Vet recently saw endocrinology BROADCAST OPERATIONS ENGINEER TRENT OCAMPO and cardiology VICKI RENO. I will alert them to provide their assessment for vets driving safety evaluation. Also ordered psychology consult to assess vets cognitive function. He may need Hose Operator's Rehabilitation evaluation. Problem List: 1) Kidney stone (SNOMED CT 38731255) 2) Mixed hyperlipidemia (SNOMED CT 511680850) 3) Permanent cardiac pacemaker (SNOMED CT 225675912200140) 4) Elevated Liver Function Tests 5) Benign [...] grafting 20) Impacted cerumen of bilateral ears Medication Review: The essential med list for review which includes the patient's active VA prescriptions and if applicable, remote VA prescriptions, non-VA prescriptions, and discontinued VA prescriptions within the last 90 days and known allergies including local and remote allergies have been reviewed. Allergies:CIPROFLOXACIN, LISINOPRIL Active and Recently Outpatient Medications (excluding Supplies): Active Outpatient Medications Status 1) ATORVASTATIN CALCIUM 80MG TAB TAKE ONE TABLET BY MOUTH EVERY ACTIVE EVENING FOR CHOLESTEROL. REPORT ANY UNEXPLAINED MUSCLE PAIN/WEAKNESS TO PROVIDER. Indication: FOR HIGH CHOLESTEROL 2) GABAPENTIN 300MG CAP TAKE ONE CAPSULE BY MOUTH THREE TIMES A ACTIVE DAY FOR PAIN Indication: FOR NERVE PAIN 3) INSULIN,ASPART(EQV-NOVLG)10 0UN/ML FLXPEN INJECT 25 UNITS ACTIVE/PARKED UNDER THE SKIN THREE TIMES A DAY BEFORE MEALS ADMINISTER 10 MINUTES BEFORE FOOD DIRECTED. REFRIGERATE UN-OPENED PENS. DISCARD CARTRIDGE 28 DAYS AFTER OPENING.USES UP TO 100 UNITS THROUGHOUT THE DAY Indication: FOR DIABETES 4) INSULIN,GLARGINE 100 UNT/ML 3ML SOLOSTAR INJECT 46 UNITS OF ACTIVE/PARKED 100UNIT/ML UNDER THE SKIN ONCE A DAY ADMINISTER AT SAME TIME EACH DAY DIRECTED. DISCARD ANY OPEN CARTRIDGE AFTER 28 DAYS. Indication: FOR DIABETES 5) ISOSORBIDE MONONITRATE 30MG SA TAB TAKE ONE TABLET BY MOUTH ACTIVE ONCE A DAY TAKE ON EMPTY STOMACH. SWALLOW WHOLE. DO NOT CRUSH OR CHEW. Indication: FOR CHEST PAIN 6) METOPROLOL SUCCINATE 25MG SA TAB TAKE ONE-HALF TABLET BY ACTIVE MOUTH ONCE A DAY SWALLOW WHOLE, DO NOT CRUSH OR CHEW (TABLETS MAY BE CUT IN HALF). Indication: FOR MYOCARDIAL INFARCTION 7) ORACIT SOLN TAKE 15 ML BY MOUTH TWICE A DAY (MIX WITH 4 ACTIVE OUNCES OF WATER PRIOR TO DRINKING) Indication: FOR PREVENTION OF KIDNEY STONES 8) TAMSULOSIN HCL 0.4MG CAP TAKE ONE CAPSULE [...] A MEAL Indication: FOR GASTROESOPHAGEAL REFLUX DISEASE 12 Total Medications Review of Systems: except as in HPI above GENERAL: no fever, no weight loss HEENT: denies vertigo, no visual problems PULMONARY: denies SOB CARDIAC: denies chest pain, denies palpitations GI: no change in appetite, no nausea, no vomiting, no abd pain, no diarrhea : no nocturia, no polyuria, no dysuria, no hematuria EXT: denies pedal edema, no arthritis Physical Exam VITALS (most recent, as listed in the electronic record): B/P: 134/80 (10/12/2024 13:56) Pulse: 89 (10/12/2024 13:56) Temperature: 98.4 F [36.9 C] (10/12/2024 13:56) Weight: 196.6 lb [89.18 kg] (10/12/2024 13:56) Height: 70 in [177.8 cm] (10/12/2024 13:56) BMI: 28.3 Pain: 0 (10/12/2024 13:56) (0-10 scale) Please also see Exam in Assessment/ Plan note. GENERAL:cooperative,nad. HEENT:PERRL, EOMI,oropharynx moist. NECK:supple, no JVD, no lymphadenopathy, thyromegaly, no carotid bruit. CVS:RRR, no murmurs. LUNGS:CTA. ABD:soft, NT, BS + BACK:no CVA tenderness. EXT:no edema PPP. NEURO:A+O X 3 Data Review: HGA1C 7.2 H % 10/06/2024 11:34 Lipid Panel: TRIGLYCERIDE 101 mg/dL 04/06/2024 11:43 CHOLESTEROL 145 mg/dL 04/06/2024 11:43 HDL(New) 41 mg/dL 04/06/2024 11:43 CALCULATED LDL 84 mg/dL 04/06/2024 11:43 CMP: SODIUM 137 mEq/L 10/06/2024 11:34 POTASSIUM 4.6 mEq/L 10/06/2024 11:34 CHLORIDE 106 mEq/L 10/06/2024 11:34 UREA NITROGEN 23.5 mg/dL 10/06/2024 11:34 CREATININE 0.99 mg/dL 10/06/2024 11:34 CALCIUM 8.9 mg/dL 10/06/2024 11:34 PROTEIN 6.7 g/dL 10/06/2024 11:34 ALBUMIN 4.0 g/dL 10/06/2024 11:34 ALKALINE PHOSPHATASE 161 H U/L 10/06/2024 11:34 ALT/SGPT 22 U/L 10/06/2024 11:34 AST/SGOT 30 U/L 10/06/2024 11:34 TOTAL BILIRUBIN 1.5 H mg/dL 10/06/2024 11:34 CARBON DIOXIDE 26 mEq/L 10/06/2024 11:34 GLUCOSE 156 H mg/dL 10/06/2024 11:34 EGFR (CKD-EPI 2020) 78.5 10/06/2024 11:34 CBC: WBC 5.9 10*3/uL 02/08/2024 08:28 RBC [...] AG.(PB-STL) 3.630 ng/mL 10/15/2022 10:41 TSH: TSH 2.116 uIU/mL 10/06/2024 11:34 UA: URINE COLOR Light-Yellow 05/05/2023 11:41 APPEARANCE [...] 13:06 HYALINE CASTS 1 /LPF 01/20/2023 13:06 Vitamin D: No VITAMIN D EO data found Micral/Creat Profile: CREATuF: 229.9 (04/06/24 11:49) M/CREAT: 90 (04/06/24 11:49) MICRAL: 206.9 (04/06/24 11:49) Result: Follow-up Action: Assessment/Plan: - BL Cerumen impaction: vet states he would like to see audiology, hearing is worsening. BL ear have wax impaction. Ordered debrox and scheduled ear wash. If no improvement rec to call audiology. - R elbow tendinitis; c/o R elbow tendinitis off and on. 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 No evidence of reversibility to indicate stress-induced ischemia. # Moderate global hypokinesis with calculated LVEF of 34%. #. Dilated left ventricle. sp NM stress test 05/11/24 - Hose Operator safety evaluation: Re[place] form from [place] Office of batch dumper, Hose Operator safety Department. To complete medical report for conditions that may impair Driving safely. # Gabriel states that request from State is in response to letter sent by [place] [facility] to [place] batch dumper. Brandyt believes that letter was sent by [place] [facility] to [place] batch dumper in April 2024. Brandyt further states that he does not know which Service sent letter. # gabriel has Insulin dependent diabetes and h/o hypoglycemic episodes and recent CABG and h/o PPM insertion. Brandyt recently saw endocrinology BROADCAST OPERATIONS ENGINEER TRENT OCAMPO and cardiology MD, VICKI HIGGINS. I will alert them to provide their assessment for vets driving safety evaluation. # Also ordered psychology consult to assess vets cognitive function. He may need Hose Operator's Rehabilitation evaluation. - CAD SP CABG x 3 /s/p multiple ESE (8)in 2003: saw [place] for CABG Cardiac surgery 11-21-[address] [facility] clinic with his . He met with Dr. Holbrook and RAYSA Stewart. He was looking well. Stamina much improved. Started lasix 40mg PO daily.taking metoprolol 12.5 mg bid - DM, hx of type 1 DM (dx age 37)Hgaic is at goal at 6.7. brandyt is seeing endocrinology. He is taking lantus [...] - HME Declined shingles shot on 03-23-19 - Drinks wine once in 2 week / quit smoking 50 years ago - HCV Negative 03/24/17 - FIT Negative 06/15/24 Weight: 187 lb [85.0 kg] (08/15/2013 Weight: 189 lb [85.9 kg] (05/02/2014 Weight: 190 lb [86.4 kg] (11/27/2014 Weight: 195 lb [88.6 kg] (11/19/2015 Weight: 190 lb [86.4 kg] (10/22/2017 Weight: 197.4 lb [89.7 kg] (07/27/2018 Weight: 196.8 lb [89.5 kg] (03/23/2019, BMI: 28.3 Weight: 185 lb 7-17-20 Weight: 193.4 lb [87.9 kg] (11/09/2020 , BMI: 27.8 Weight: 194.7 lb [88.5 kg] (05/01/2021 ,BMI: 28.0 Weight: 198.4 lb [89.99 kg] (09/09/2021 , BMI: 28.5 Weight: 195.6 lb [88.72 kg] (10/15/2022, BMI: 28.1 Weight: 194.2 lb [88.09 kg] (07/17/2023 ,BMI: 27.9 Weight: 191.4 lb [86.82 kg] (04/18/2024, BMI: 27.5 Weight: 196.6 lb [89.18 kg] (10/12/2024, BMI: 28.3 SUMMARY STATEMENT: Plan of care has been discussed with including expected therapeutic benefits and potential side effects of prescribed medication and treatments. verbalizes understanding and is in agreement with the plan of care. Patient was instructed to keep all scheduled appointments and contact obstetrics gyn for any additional problems. RTC: 7 months CLINICAL REMINDERS COMPLETED /reed/ Devin Carter MD. Staff Physcian. Signed: 10/12/2024 17:01 Receipt Acknowledged By: 10/17/2024 08:54 /reed/ VICKI HIGGINS MD, PhD 10/17/2024 11:00 /reed/ FLOR Romero, MSN, RN Nurse Practitioner 10/17/2024 ADDENDUM STATUS: COMPLETED There is no cardiovascular reason that he cannot drive long-term provided CT surgery has given him clearance to drive. /reed/ VICKI HIGGINS MD, PhD Signed: 10/17/2024 08:54 10/17/2024 ADDENDUM STATUS: COMPLETED received this note from card processing clerk Trent.tylor. Good morning. This is trent with endocrinology and I got an addendum stating that there's paperwork on a mutual . I don't mind filling out the paperwork for Makenna Soto [address], if it could be emailed or faxed over to me i'd appreciate it. . [phone] Please have vet take his paperwork to Dr Ocampo. alerting samreen Mantilla. /es/ Devin Carter MD. Staff Physcian. Signed: 10/17/2024 11:41 Receipt Acknowledged By: 10/17/2024 12:13 /es/ TRENT GARCIA RN REGISTERED NURSE 10/17/2024 13:54 /es/ SAVANNAH HOLBROOK MD Staff Physician, Cardiothoracic Surgery 10/17/2024 ADDENDUM STATUS: COMPLETED Patient Contacted, Identity verified by full name and Date of . Patient informed that DAWSON Terrazas/Endocrinology Service will complete paperwork - Vet stated that he would send paperwork to him. Vet id his Cardiothoracic Surgeon at Dr. Savannah Holbrook/Staff at both [facility] and [place]. Patient verbalized good understanding. /es/ TRENT GARCIA RN REGISTERED NURSE Signed: 10/17/2024 12:26 10/17/2024 ADDENDUM STATUS: COMPLETED There is no cardiac surgical reason why he cannot drive > 1 month postop. Defer to primary care for final determination. /es/ SAVANNAH HOLBROOK MD Staff Physician, Cardiothoracic Surgery Signed: 10/17/2024 13:54 11/14/2024 ADDENDUM STATUS: COMPLETED Please see Cardiology on 11/14/24 10/17/2024 ADDENDUM STATUS: COMPLETED There is no cardiovascular reason that he cannot drive long-term provided CT surgery has given him clearance to drive. /es/ VICKI HIGGINS MD, PhD Signed: 10/17/2024 08:54 /es/ Devin Carter MD. Staff Physcian. Signed: 11/14/2024 09:34 11/14/2024 ADDENDUM STATUS: COMPLETED 11/14/2024 ADDENDUM STATUS: COMPLETED cleared from an endocrine point of view as well /reed/ FLOR Romero, MSN, RN Nurse Practitioner Signed: 11/14/2024 14:40 see cardiology on 11/14/24. /reed/ Devin Carter MD. Staff Jose Elias. Signed: 11/14/2024 17:48 11/14/2024 ADDENDUM STATUS: COMPLETED Vet has phone appointment with PCP on 11/21/24. alerting RN to advise vet to fax new form to clinic prior to his pcp phone appointment. /reed/ Devin Carter MD. Staff Jose Elias. Signed: 11/14/2024 17:50 Receipt Acknowledged By: * AWAITING SIGNATURE * DOUG VALDEZ 11/21/2024 ADDENDUM STATUS: COMPLETED Completed Hose Operator Services Department form for [facility]. Called vet for his phone appointment on 11/21/24 and left VM x 2. /reed/ Devin Carter MD. Staff Jose Elias. Signed: 11/21/2024 09:12 DEVIN CARTER [facility] Nov 14, 2024 05:48 PM ADDENDUM: LOCAL TITLE: Addendum STANDARD TITLE: ADDENDUM DATE OF NOTE: NOV 14, 2024@17:48:29 ENTRY DATE: NOV 14, 2024@17:48:29 AUTHOR: DEVIN CARTER EXP COSIGNER: URGENCY: STATUS: COMPLETED Vet has phone appointment with PCP on 11/21/24. alerting RN to advise vet to fax new form to clinic prior to his pcp phone appointment. /reed/ Devin Carter MD. Staff Jose Elias. Signed: 11/14/2024 17:50 Receipt Acknowledged By: 11/21/2024 15:58 /reed/ JOSE MONTIEL, RN REGISTERED NURSE --- Original Document --- 10/12/24 PRIMARY CARE PROVIDER ESTABLISHED VISIT STL: Patient is 79 and WHITE Self Identified Gender - NONE FOUND Reason for visit:Scheduled follow-up Chief Complaint: vet is here for reg scheduled follow up History of Present Illness: [place] form [place] Office of batch dumper, Hose Operator safety Department. To complete medical report for conditions that may impair Driving safely. 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 Vet recently saw endocrinology BROADCAST OPERATIONS ENGINEER TRENT OCAMPO and cardiology VICKI RENO. I will alert them to provide their assessment for vets driving safety evaluation. Also ordered psychology consult to assess vets cognitive function. He may need Hose Operator's Rehabilitation evaluation. Problem List: 1) Kidney stone (SNOMED CT 60793809) 2) Mixed hyperlipidemia (SNOMED CT 800457910) 3) Permanent cardiac pacemaker (SNOMED CT 051799146249256) 4) Elevated Liver Function Tests 5) Benign [...] grafting 20) Impacted cerumen of bilateral ears Medication Review: The essential med list for review which includes the patient's active VA prescriptions and if applicable, remote VA prescriptions, non-VA prescriptions, and discontinued VA prescriptions within the last 90 days and known allergies including local and remote allergies have been reviewed. Allergies:CIPROFLOXACIN, LISINOPRIL Active and Recently Outpatient Medications (excluding Supplies): Active Outpatient Medications Status 1) ATORVASTATIN CALCIUM 80MG TAB TAKE ONE TABLET BY MOUTH EVERY ACTIVE EVENING FOR CHOLESTEROL. REPORT ANY UNEXPLAINED MUSCLE PAIN/WEAKNESS TO PROVIDER. Indication: FOR HIGH CHOLESTEROL 2) GABAPENTIN 300MG CAP TAKE ONE CAPSULE BY MOUTH THREE TIMES A ACTIVE DAY FOR PAIN Indication: FOR NERVE PAIN 3) INSULIN,ASPART(EQV-NOVLG)10 0UN/ML FLXPEN INJECT 25 UNITS ACTIVE/PARKED UNDER THE SKIN THREE TIMES A DAY BEFORE MEALS ADMINISTER 10 MINUTES BEFORE FOOD DIRECTED. REFRIGERATE UN-OPENED PENS. DISCARD CARTRIDGE 28 DAYS AFTER OPENING.USES UP TO 100 UNITS THROUGHOUT THE DAY Indication: FOR DIABETES 4) INSULIN,GLARGINE 100 UNT/ML 3ML SOLOSTAR INJECT 46 UNITS OF ACTIVE/PARKED 100UNIT/ML UNDER THE SKIN ONCE A DAY ADMINISTER AT SAME TIME EACH DAY DIRECTED. DISCARD ANY OPEN CARTRIDGE AFTER 28 DAYS. Indication: FOR DIABETES 5) ISOSORBIDE MONONITRATE 30MG SA TAB TAKE ONE TABLET BY MOUTH ACTIVE ONCE A DAY TAKE ON EMPTY STOMACH. SWALLOW WHOLE. DO NOT CRUSH OR CHEW. Indication: FOR CHEST PAIN 6) METOPROLOL SUCCINATE 25MG SA TAB TAKE ONE-HALF TABLET BY ACTIVE MOUTH ONCE A DAY SWALLOW WHOLE, DO NOT CRUSH OR CHEW (TABLETS MAY BE CUT IN HALF). Indication: FOR MYOCARDIAL INFARCTION 7) ORACIT SOLN TAKE 15 ML BY MOUTH TWICE A DAY (MIX WITH 4 ACTIVE OUNCES OF WATER PRIOR TO DRINKING) Indication: FOR PREVENTION OF KIDNEY STONES 8) TAMSULOSIN HCL 0.4MG CAP TAKE ONE CAPSULE [...] A MEAL Indication: FOR GASTROESOPHAGEAL REFLUX DISEASE 12 Total Medications Review of Systems: except as in HPI above GENERAL: no fever, no weight loss HEENT: denies vertigo, no visual problems PULMONARY: denies SOB CARDIAC: denies chest pain, denies palpitations GI: no change in appetite, no nausea, no vomiting, no abd pain, no diarrhea : no nocturia, no polyuria, no dysuria, no hematuria EXT: denies pedal edema, no arthritis Physical Exam VITALS (most recent, as listed in the electronic record): B/P: 134/80 (10/12/2024 13:56) Pulse: 89 (10/12/2024 13:56) Temperature: 98.4 F [36.9 C] (10/12/2024 13:56) Weight: 196.6 lb [89.18 kg] (10/12/2024 13:56) Height: 70 in [177.8 cm] (10/12/2024 13:56) BMI: 28.3 Pain: 0 (10/12/2024 13:56) (0-10 scale) Please also see Exam in Assessment/ Plan note. GENERAL:cooperative,nad. HEENT:PERRL, EOMI,oropharynx moist. NECK:supple, no JVD, no lymphadenopathy, thyromegaly, no carotid bruit. CVS:RRR, no murmurs. LUNGS:CTA. ABD:soft, NT, BS + BACK:no CVA tenderness. EXT:no edema PPP. NEURO:A+O X 3 Data Review: HGA1C 7.2 H % 10/06/2024 11:34 Lipid Panel: TRIGLYCERIDE 101 mg/dL 04/06/2024 11:43 CHOLESTEROL 145 mg/dL 04/06/2024 11:43 HDL(New) 41 mg/dL 04/06/2024 11:43 CALCULATED LDL 84 mg/dL 04/06/2024 11:43 CMP: SODIUM 137 mEq/L 10/06/2024 11:34 POTASSIUM 4.6 mEq/L 10/06/2024 11:34 CHLORIDE 106 mEq/L 10/06/2024 11:34 UREA NITROGEN 23.5 mg/dL 10/06/2024 11:34 CREATININE 0.99 mg/dL 10/06/2024 11:34 CALCIUM 8.9 mg/dL 10/06/2024 11:34 PROTEIN 6.7 g/dL 10/06/2024 11:34 ALBUMIN 4.0 g/dL 10/06/2024 11:34 ALKALINE PHOSPHATASE 161 H U/L 10/06/2024 11:34 ALT/SGPT 22 U/L 10/06/2024 11:34 AST/SGOT 30 U/L 10/06/2024 11:34 TOTAL BILIRUBIN 1.5 H mg/dL 10/06/2024 11:34 CARBON DIOXIDE 26 mEq/L 10/06/2024 11:34 GLUCOSE 156 H mg/dL 10/06/2024 11:34 EGFR (CKD-EPI 2020) 78.5 10/06/2024 11:34 CBC: WBC 5.9 10*3/uL 02/08/2024 08:28 RBC [...] AG.(PB-STL) 3.630 ng/mL 10/15/2022 10:41 TSH: TSH 2.116 uIU/mL 10/06/2024 11:34 UA: URINE COLOR Light-Yellow 05/05/2023 11:41 APPEARANCE [...] 13:06 HYALINE CASTS 1 /LPF 01/20/2023 13:06 Vitamin D: No VITAMIN D EO data found Micral/Creat Profile: CREATuF: 229.9 (04/06/24 11:49) M/CREAT: 90 (04/06/24 11:49) MICRAL: 206.9 (04/06/24 11:49) Result: Follow-up Action: Assessment/Plan: - BL Cerumen impaction: vet states he would like to see audiology, hearing is worsening. BL ear have wax impaction. Ordered debrox and scheduled ear wash. If no improvement rec to call audiology. - R elbow tendinitis; c/o R elbow tendinitis off and on. 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 No evidence of reversibility to indicate stress-induced ischemia. # Moderate global hypokinesis with calculated LVEF of 34%. #. Dilated left ventricle. sp NM stress test 05/11/24 - Hose Operator safety evaluation: Received form from [place] Office of batch dumper, Hose Operator safety Department. To complete medical report for conditions that may impair Driving safely. # Gabriel states that request from State is in response to letter sent by [place] [facility] to [place] batch dumper. Vet [facility] Vet further states that he does not know which Service sent letter. 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 Vet recently saw endocrinology BROADCAST OPERATIONS ENGINEER TRENT OCAMPO and cardiology MD, VICKI HIGGINS. I will alert them to provide their assessment for vets driving safety evaluation. # Also ordered psychology consult to assess vets cognitive function. He may need Hose Operator's Rehabilitation evaluation. - CAD SP CABG x 3 /s/p multiple ESE (8)in 2003: saw [place] for [place] Cardiac surgery 11-21-[address] [facility] clinic with his . He met with Dr. Holbrook [facility] He was looking well. Stamina much improved. [...] - HME Declined shingles shot on 03-23-19 - Drinks wine once in 2 week / quit smoking 50 years ago - HCV Negative 03/24/17 - FIT Negative 06/15/24 Weight: 187 lb [85.0 kg] (08/15/2013 Weight: [...] 191.4 lb [86.82 kg] (04/18/2024, BMI: 27.5 Weight: 196.6 lb [89.18 kg] (10/12/2024, BMI: 28.3 SUMMARY STATEMENT: Plan of care has been discussed with including expected therapeutic benefits and potential side effects of prescribed medication and treatments. verbalizes understanding and is in agreement with the plan of care. Patient was instructed to keep all scheduled appointments and contact obstetrics gyn for any additional problems. RTC: 7 months CLINICAL REMINDERS COMPLETED /reed/ Devin Carter MD. Staff Physcian. Signed: 10/12/2024 17:01 Receipt Acknowledged By: 10/17/2024 08:54 /ankit HIGGINS MD, PhD 10/17/2024 11:00 /reed/ FLOR Romero, MSN, RN Nurse Practitioner 10/17/2024 ADDENDUM STATUS: COMPLETED There is no cardiovascular reason that he cannot drive long-term provided CT surgery has given him clearance to drive. /reed/ VICKI HIGGINS MD, PhD Signed: 10/17/2024 08:54 10/17/2024 ADDENDUM STATUS: COMPLETED received this note from card processing clerk Trent.tylor. Good morning. This is trent with endocrinology and I got an addendum stating that there's paperwork on a mutual . I don't mind filling out the paperwork for Makenna Soto [id number], if it could be emailed or faxed over to me i'd appreciate it. [email or web address]. [phone] Please have vet take his paperwork to Dr Ocampo. alerting rn Waqas Mantilla. /reed/ Devin Carter MD. Staff Physcian. Signed: 10/17/2024 11:41 Receipt Acknowledged By: 10/17/2024 12:13 /es/ TRENT GARCIA RN REGISTERED NURSE 10/17/2024 13:54 /es/ SAVANNAH HOLBROOK MD Staff Physician, Cardiothoracic Surgery 10/17/2024 ADDENDUM STATUS: COMPLETED Patient Contacted, Identity verified by full name and Date of . Patient informed that DAWSON Terrazas/Endocrinology Service will complete paperwork - Vet stated that he would send paperwork to him. Vet id his Cardiothoracic Surgeon at Dr. Savannah Holbrook/Staff at both [facility] and [place]. Patient verbalized good understanding. /es/ TRENT GARCIA RN REGISTERED NURSE Signed: 10/17/2024 12:26 10/17/2024 ADDENDUM STATUS: COMPLETED There is no cardiac surgical reason why he cannot drive > 1 month postop. Defer to primary care for final determination. /reed/ SAVANNAH HOLBROOK MD Staff Physician, Cardiothoracic Surgery Signed: 10/17/2024 13:54 11/14/2024 ADDENDUM STATUS: COMPLETED Please see Cardiology on 11/14/24 10/17/2024 ADDENDUM STATUS: COMPLETED There is no cardiovascular reason that he cannot drive long-term provided CT surgery has given him clearance to drive. /es/ VICKI HIGGINS MD, PhD Signed: 10/17/2024 08:54 /es/ Devin Carter MD. Staff Physcian. Signed: 11/14/2024 09:34 11/14/2024 ADDENDUM STATUS: COMPLETED 11/14/2024 ADDENDUM STATUS: COMPLETED cleared from an endocrine point of view as well /reed/ FLOR Romero, MSN, RN Nurse Practitioner Signed: 11/14/2024 14:40 see cardiology on 11/14/24. /reed/ Devin Carter MD. Staff Physcian. Signed: 11/14/2024 17:48 11/21/2024 ADDENDUM STATUS: COMPLETED Completed Hose Operator Services Department form for [facility]. Called vet for his phone appointment on 11/21/24 and left VM x 2. /reed/ Devin Carter MD. Staff Jose Elias. Signed: 11/21/2024 09:12 11/21/2024 ADDENDUM STATUS: COMPLETED Waqas can you print med list for Sky Soto [id number]. thanks /reed/ Devin Carter MD. Staff Jose Elias. Signed: 11/21/2024 09:14 Receipt Acknowledged By: 11/21/2024 09:47 /reed/ TRENT GARCIA RN REGISTERED NURSE 11/21/2024 ADDENDUM STATUS: COMPLETED RNCM scanned and sent following to Vet via form dsd [id number] oct 2022, office of racing secretary and handicapper [employer] [place] driver service department. /reed/ TRENT GARCIA RN REGISTERED NURSE Signed: 11/21/2024 09:53 DEVIN CARTER [facility] October 17, 2024 11:40 AM ADDENDUM: LOCAL TITLE: Addendum STANDARD TITLE: ADDENDUM DATE OF NOTE: OCTOBER 17, 2024@11:40:20 ENTRY DATE: OCTOBER 17, 2024@11:40:21 AUTHOR: DEVIN CARTER EXP COSIGNER: URGENCY: STATUS: COMPLETED received this note from card processing clerk Derek. Good morning. This is trent with endocrinology and I got an addendum stating that there's paperwork on a mutual . I don't mind filling out the paperwork for Makenna Soto [id number], if it could be emailed or faxed over to me i'd appreciate it. . [phone] Please have vet take his paperwork to Dr Ocampo. alerting rn Waqas Mantilla. /reed/ Devin Carter MD. Staff Jose Elias. Signed: 10/17/2024 11:41 Receipt Acknowledged By: 10/17/2024 12:13 /es/ TRENT GARCIA RN REGISTERED NURSE 10/17/2024 13:54 /es/ SAVANNAH HOLBROOK MD Staff Physician, Cardiothoracic Surgery --- Original Document --- 10/12/24 PRIMARY CARE PROVIDER ESTABLISHED VISIT ST[facility]: Patient is 79 and WHITE Self Identified Gender - NONE FOUND Reason for visit:Scheduled follow-up Chief Complaint: brandyt is here for reg scheduled follow up History of Present Illness: [place] Office of batch dumper, Hose Operator safety Department. To complete medical report for conditions that may impair Driving safely. 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 Vet recently saw endocrinology BROADCAST OPERATIONS ENGINEER TRENT OCAMPO and cardiology MDVICKI. I will alert them to provide their assessment for vets driving safety evaluation. Also ordered psychology consult to assess vets cognitive function. He may need Hose Operator's Rehabilitation evaluation. Problem List: 1) Kidney stone (SNOMED CT 66033076) 2) Mixed hyperlipidemia (SNOMED CT 740861941) 3) Permanent cardiac pacemaker (SNOMED CT 970716928651006) 4) Elevated Liver Function Tests 5) Benign [...] grafting 20) Impacted cerumen of bilateral ears Medication Review: The essential med list for review which includes the patient's active VA prescriptions and if applicable, remote VA prescriptions, non-VA prescriptions, and discontinued VA prescriptions within the last 90 days and known allergies including local and remote allergies have been reviewed. Allergies:CIPROFLOXACIN, LISINOPRIL Active and Recently Outpatient Medications (excluding Supplies): Active Outpatient Medications Status 1) ATORVASTATIN CALCIUM 80MG TAB TAKE ONE TABLET BY MOUTH EVERY ACTIVE EVENING FOR CHOLESTEROL. REPORT ANY UNEXPLAINED MUSCLE PAIN/WEAKNESS TO PROVIDER. Indication: FOR HIGH CHOLESTEROL 2) GABAPENTIN 300MG CAP TAKE ONE CAPSULE BY MOUTH THREE TIMES A ACTIVE DAY FOR PAIN Indication: FOR NERVE PAIN 3) INSULIN,ASPART(EQV-NOVLG)10 0UN/ML FLXPEN INJECT 25 UNITS ACTIVE/PARKED UNDER THE SKIN THREE TIMES A DAY BEFORE MEALS ADMINISTER 10 MINUTES BEFORE FOOD DIRECTED. REFRIGERATE UN-OPENED PENS. DISCARD CARTRIDGE 28 DAYS AFTER OPENING.USES UP TO 100 UNITS THROUGHOUT THE DAY Indication: FOR DIABETES 4) INSULIN,GLARGINE 100 UNT/ML 3ML SOLOSTAR INJECT 46 UNITS OF ACTIVE/PARKED 100UNIT/ML UNDER THE SKIN ONCE A DAY ADMINISTER AT SAME TIME EACH DAY DIRECTED. DISCARD ANY OPEN CARTRIDGE AFTER 28 DAYS. Indication: FOR DIABETES 5) ISOSORBIDE MONONITRATE 30MG SA TAB TAKE ONE TABLET BY MOUTH ACTIVE ONCE A DAY TAKE ON EMPTY STOMACH. SWALLOW WHOLE. DO NOT CRUSH OR CHEW. Indication: FOR CHEST PAIN 6) METOPROLOL SUCCINATE 25MG SA TAB TAKE ONE-HALF TABLET BY ACTIVE MOUTH ONCE A DAY SWALLOW WHOLE, DO NOT CRUSH OR CHEW (TABLETS MAY BE CUT IN HALF). Indication: FOR MYOCARDIAL INFARCTION 7) ORACIT SOLN TAKE 15 ML BY MOUTH TWICE A DAY (MIX WITH 4 ACTIVE OUNCES OF WATER PRIOR TO DRINKING) Indication: FOR PREVENTION OF KIDNEY STONES 8) TAMSULOSIN HCL 0.4MG CAP TAKE ONE CAPSULE [...] A MEAL Indication: FOR GASTROESOPHAGEAL REFLUX DISEASE 12 Total Medications Review of Systems: except as in HPI above GENERAL: no fever, no weight loss HEENT: denies vertigo, no visual problems PULMONARY: denies SOB CARDIAC: denies chest pain, denies palpitations GI: no change in appetite, no nausea, no vomiting, no abd pain, no diarrhea : no nocturia, no polyuria, no dysuria, no hematuria EXT: denies pedal edema, no arthritis Physical Exam VITALS (most recent, as listed in the electronic record): B/P: 134/80 (10/12/2024 13:56) Pulse: 89 (10/12/2024 13:56) Temperature: 98.4 F [36.9 C] (10/12/2024 13:56) Weight: 196.6 lb [89.18 kg] (10/12/2024 13:56) Height: 70 in [177.8 cm] (10/12/2024 13:56) BMI: 28.3 Pain: 0 (10/12/2024 13:56) (0-10 scale) Please also see Exam in Assessment/ Plan note. GENERAL:cooperative,nad. HEENT:PERRL, EOMI,oropharynx moist. NECK:supple, no JVD, no lymphadenopathy, thyromegaly, no carotid bruit. CVS:RRR, no murmurs. LUNGS:CTA. ABD:soft, NT, BS + BACK:no CVA tenderness. EXT:no edema PPP. NEURO:A+O X 3 Data Review: HGA1C 7.2 H % 10/06/2024 11:34 Lipid Panel: TRIGLYCERIDE 101 mg/dL 04/06/2024 11:43 CHOLESTEROL 145 mg/dL 04/06/2024 11:43 HDL(New) 41 mg/dL 04/06/2024 11:43 CALCULATED LDL 84 mg/dL 04/06/2024 11:43 CMP: SODIUM 137 mEq/L 10/06/2024 11:34 POTASSIUM 4.6 mEq/L 10/06/2024 11:34 CHLORIDE 106 mEq/L 10/06/2024 11:34 UREA NITROGEN 23.5 mg/dL 10/06/2024 11:34 CREATININE 0.99 mg/dL 10/06/2024 11:34 CALCIUM 8.9 mg/dL 10/06/2024 11:34 PROTEIN 6.7 g/dL 10/06/2024 11:34 ALBUMIN 4.0 g/dL 10/06/2024 11:34 ALKALINE PHOSPHATASE 161 H U/L 10/06/2024 11:34 ALT/SGPT 22 U/L 10/06/2024 11:34 AST/SGOT 30 U/L 10/06/2024 11:34 TOTAL BILIRUBIN 1.5 H mg/dL 10/06/2024 11:34 CARBON DIOXIDE 26 mEq/L 10/06/2024 11:34 GLUCOSE 156 H mg/dL 10/06/2024 11:34 EGFR (CKD-EPI 2020) 78.5 10/06/2024 11:34 CBC: WBC 5.9 10*3/uL 02/08/2024 08:28 RBC [...] AG.(PB-STL) 3.630 ng/mL 10/15/2022 10:41 TSH: TSH 2.116 uIU/mL 10/06/2024 11:34 UA: URINE COLOR Light-Yellow 05/05/2023 11:41 APPEARANCE [...] 13:06 HYALINE CASTS 1 /LPF 01/20/2023 13:06 Vitamin D: No VITAMIN D EO data found Micral/Creat Profile: CREATuF: 229.9 (04/06/24 11:49) M/CREAT: 90 (04/06/24 11:49) MICRAL: 206.9 (04/06/24 11:49) Result: Follow-up Action: Assessment/Plan: - BL Cerumen impaction: vet states he would like to see audiology, hearing is worsening. BL ear have wax impaction. Ordered debrox and scheduled ear wash. If no improvement rec to call audiology. - R elbow tendinitis; c/o R elbow tendinitis off and on. 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 No evidence of reversibility to indicate stress-induced ischemia. # Moderate global hypokinesis with calculated LVEF of 34%. #. Dilated left ventricle. sp NM stress test 05/11/24 - Hose Operator safety evaluation: Received form from [place] Office of batch dumper, Hose Operator safety Department. To complete medical report for conditions that may impair Driving safely. # Vet states that request from State is in response to letter sent by [place] [facility] to [place] batch dumper. Vet believes that letter was sent by [facility] to [place] batch dumper in April 2024. Vet further states that he does not know which Service sent letter. 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 Vet recently saw endocrinology BROADCAST OPERATIONS ENGINEER TRENT OCAMPO and cardiology MD, VICKI HIGGINS. I will alert them to provide their assessment for vets driving safety evaluation. # Also ordered psychology consult to assess vets cognitive function. He may need Hose Operator's Rehabilitation evaluation. - CAD SP CABG x 3 /s/p multiple ESE (8)in 2003: saw [place] for [place] Cardiac surgery 11-21-[address] Surgery clinic with his . He met with Dr. Holbrook and RAYSA Stewart. He was looking well. Stamina much improved. [...] foot pain, numbness and tingling BL foot. 2/. continue gabapentin 300 mg TID. # H/O [...] - HME Declined shingles shot on 03-23-19 - Drinks wine once in 2 week / quit smoking 50 years ago - HCV Negative 03/24/17 - FIT Negative 06/15/24 Weight: 187 lb [85.0 kg] (08/15/2013 Weight: [...] 191.4 lb [86.82 kg] (04/18/2024, BMI: 27.5 Weight: 196.6 lb [89.18 kg] (10/12/2024, BMI: 28.3 SUMMARY STATEMENT: Plan of care has been discussed with including expected therapeutic benefits and potential side effects of prescribed medication and treatments. verbalizes understanding and is in agreement with the plan of care. Patient was instructed to keep all scheduled appointments and contact obstetrics gyn for any additional problems. RTC: 7 months CLINICAL REMINDERS COMPLETED /es/ Devin Carter MD. Staff Physan. Signed: 10/12/2024 17:01 Receipt Acknowledged By: 10/17/2024 08:54 /es/ VICKI HIGGINS MD, PhD 10/17/2024 11:00 /es/ CLIFTON RomeroC, MSN, RN Nurse Practitioner 10/17/2024 ADDENDUM STATUS: COMPLETED There is no cardiovascular reason that he cannot drive long-term provided CT surgery has given him clearance to drive. /reed/ VICKI HIGGINS MD, PhD Signed: 10/17/2024 08:54 10/17/2024 ADDENDUM STATUS: COMPLETED Patient Contacted, Identity verified by full name and Date of . Patient informed that DAWSON Terrazas/Endocrinology Service will complete paperwork - Vet stated that he would send paperwork to him. Vet id his Cardiothoracic Surgeon at Dr. Savannah Holbrook/[facility] at both [facility] and [place]. Patient verbalized good understanding. /reed/ TRENT NGUYEN BSN RN REGISTERED NURSE Signed: 10/17/2024 12:26 10/17/2024 ADDENDUM STATUS: COMPLETED There is no cardiac surgical reason why he cannot drive > 1 month postop. Defer to primary care for final determination. /reed/ SAVANNAH HOLBROOK MD Staff Physician, Cardiothoracic Surgery Signed: 10/17/2024 13:54 DEVIN CARTER [facility] October 12, 2024 02:12 PM PRIMARY CARE NOTE: LOCAL TITLE: PRIMARY CARE PROVIDER ESTABLISHED VISIT [facility] STANDARD TITLE: PRIMARY CARE NOTE DATE OF NOTE: OCTOBER 12, 2024@14:12 ENTRY DATE: OCTOBER 12, 2024@14:12:28 AUTHOR: DEVIN CARTER EXP COSIGNER: URGENCY: STATUS: COMPLETED PRIMARY CARE PROVIDER ESTABLISHED VISIT ST Has ADDENDA Patient is 79 and WHITE Self Identified Gender - NONE FOUND Reason for visit:Scheduled follow-up Chief Complaint: vet is here for reg scheduled follow up History of Present Illness: [place] form [place] Office of batch dumper, Hose Operator safety Department. To complete medical report for conditions that may impair Driving safely. 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 Vet recently saw endocrinology TRENT GILLIS and cardiology MD, VICKI HIGGINS. I will alert them to provide their assessment for vets driving safety evaluation. Also ordered psychology consult to assess vets cognitive function. He may need Hose Operator's Rehabilitation evaluation. Problem List: 1) Kidney stone (SNOMED CT 68107705) 2) Mixed hyperlipidemia (SNOMED CT 220213841) 3) Permanent cardiac pacemaker (SNOMED CT [id number]) 4) Elevated Liver Function Tests 5) Benign [...] grafting 20) Impacted cerumen of bilateral ears Medication Review: The essential med list for review which includes the patient's active VA prescriptions and if applicable, remote VA prescriptions, non-VA prescriptions, and discontinued VA prescriptions within the last 90 days and known allergies including local and remote allergies have been reviewed. Allergies:CIPROFLOXACIN, LISINOPRIL Active and Recently Outpatient Medications (excluding Supplies): Active Outpatient Medications Status 1) ATORVASTATIN CALCIUM 80MG TAB TAKE ONE TABLET BY MOUTH EVERY ACTIVE EVENING FOR CHOLESTEROL. REPORT ANY UNEXPLAINED MUSCLE PAIN/WEAKNESS TO PROVIDER. Indication: FOR HIGH CHOLESTEROL 2) GABAPENTIN 300MG CAP TAKE ONE CAPSULE BY MOUTH THREE TIMES A ACTIVE DAY FOR PAIN Indication: FOR NERVE PAIN 3) INSULIN,ASPART(EQV-NOVLG)10 0UN/ML FLXPEN INJECT 25 UNITS ACTIVE/PARKED UNDER THE SKIN THREE TIMES A DAY BEFORE MEALS ADMINISTER 10 MINUTES BEFORE FOOD DIRECTED. REFRIGERATE UN-OPENED PENS. DISCARD CARTRIDGE 28 DAYS AFTER OPENING.USES UP TO 100 UNITS THROUGHOUT THE DAY Indication: FOR DIABETES 4) INSULIN,GLARGINE 100 UNT/ML 3ML SOLOSTAR INJECT 46 UNITS OF ACTIVE/PARKED 100UNIT/ML UNDER THE SKIN ONCE A DAY ADMINISTER AT SAME TIME EACH DAY DIRECTED. DISCARD ANY OPEN CARTRIDGE AFTER 28 DAYS. Indication: FOR DIABETES 5) ISOSORBIDE MONONITRATE 30MG SA TAB TAKE ONE TABLET BY MOUTH ACTIVE ONCE A DAY TAKE ON EMPTY STOMACH. SWALLOW WHOLE. DO NOT CRUSH OR CHEW. Indication: FOR CHEST PAIN 6) METOPROLOL SUCCINATE 25MG SA TAB TAKE ONE-HALF TABLET BY ACTIVE MOUTH ONCE A DAY SWALLOW WHOLE, DO NOT CRUSH OR CHEW (TABLETS MAY BE CUT IN HALF). Indication: FOR MYOCARDIAL INFARCTION 7) ORACIT SOLN TAKE 15 ML BY MOUTH TWICE A DAY (MIX WITH 4 ACTIVE OUNCES OF WATER PRIOR TO DRINKING) Indication: FOR PREVENTION OF KIDNEY STONES 8) TAMSULOSIN HCL 0.4MG CAP TAKE ONE CAPSULE [...] A MEAL Indication: FOR GASTROESOPHAGEAL REFLUX DISEASE 12 Total Medications Review of Systems: except as in HPI above GENERAL: no fever, no weight loss HEENT: denies vertigo, no visual problems PULMONARY: denies SOB CARDIAC: denies chest pain, denies palpitations GI: no change in appetite, no nausea, no vomiting, no abd pain, no diarrhea : no nocturia, no polyuria, no dysuria, no hematuria EXT: denies pedal edema, no arthritis Physical Exam VITALS (most recent, as listed in the electronic record): B/P: 134/80 (10/12/2024 13:56) Pulse: 89 (10/12/2024 13:56) Temperature: 98.4 F [36.9 C] (10/12/2024 13:56) Weight: 196.6 lb [89.18 kg] (10/12/2024 13:56) Height: 70 in [177.8 cm] (10/12/2024 13:56) BMI: 28.3 Pain: 0 (10/12/2024 13:56) (0-10 scale) Please also see Exam in Assessment/ Plan note. GENERAL:cooperative,nad. HEENT:PERRL, EOMI,oropharynx moist. NECK:supple, no JVD, no lymphadenopathy, thyromegaly, no carotid bruit. CVS:RRR, no murmurs. LUNGS:CTA. ABD:soft, NT, BS + BACK:no CVA tenderness. EXT:no edema PPP. NEURO:A+O X 3 Data Review: HGA1C 7.2 H % 10/06/2024 11:34 Lipid Panel: TRIGLYCERIDE 101 mg/dL 04/06/2024 11:43 CHOLESTEROL 145 mg/dL 04/06/2024 11:43 HDL(New) 41 mg/dL 04/06/2024 11:43 CALCULATED LDL 84 mg/dL 04/06/2024 11:43 CMP: SODIUM 137 mEq/L 10/06/2024 11:34 POTASSIUM 4.6 mEq/L 10/06/2024 11:34 CHLORIDE 106 mEq/L 10/06/2024 11:34 UREA NITROGEN 23.5 mg/dL 10/06/2024 11:34 CREATININE 0.99 mg/dL 10/06/2024 11:34 CALCIUM 8.9 mg/dL 10/06/2024 11:34 PROTEIN 6.7 g/dL 10/06/2024 11:34 ALBUMIN 4.0 g/dL 10/06/2024 11:34 ALKALINE PHOSPHATASE 161 H U/L 10/06/2024 11:34 ALT/SGPT 22 U/L 10/06/2024 11:34 AST/SGOT 30 U/L 10/06/2024 11:34 TOTAL BILIRUBIN 1.5 H mg/dL 10/06/2024 11:34 CARBON DIOXIDE 26 mEq/L 10/06/2024 11:34 GLUCOSE 156 H mg/dL 10/06/2024 11:34 EGFR (CKD-EPI 2020) 78.5 10/06/2024 11:34 CBC: WBC 5.9 10*3/uL 02/08/2024 08:28 RBC [...] AG.(PB-STL) 3.630 ng/mL 10/15/2022 10:41 TSH: TSH 2.116 uIU/mL 10/06/2024 11:34 UA: URINE COLOR Light-Yellow 05/05/2023 11:41 APPEARANCE [...] 13:06 HYALINE CASTS 1 /LPF 01/20/2023 13:06 Vitamin D: No VITAMIN D EO data found Micral/Creat Profile: CREATuF: 229.9 (04/06/24 11:49) M/CREAT: 90 (04/06/24 11:49) MICRAL: 206.9 (04/06/24 11:49) Result: Follow-up Action: Assessment/Plan: - BL Cerumen impaction: vet states he would like to see audiology, hearing is worsening. BL ear have wax impaction. Ordered debrox and scheduled ear wash. If no improvement rec to call audiology. - R elbow tendinitis; c/o R elbow tendinitis off and on. 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 No evidence of reversibility to indicate stress-induced ischemia. # Moderate global hypokinesis with calculated LVEF of 34%. #. Dilated left ventricle. sp NM stress test 05/11/24 - Hose Operator safety evaluation: Re[place] form from [place] Office of batch dumper, Hose Operator safety Department. To complete medical report for conditions that may impair Driving safely. # Vet states that request from State is in response to letter sent by [place] [facility] to [place] batch dumper. Vet believes that letter was sent by [place] [facility] to [place] batch dumper in April 2024. Vet further states that he does not know which Service sent letter. 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 Vet recently saw endocrinology BROADCAST OPERATIONS ENGINEER TRENT OCAMPO and cardiology MD, VICKI HIGGINS. I will alert them to provide their assessment for vets driving safety evaluation. # Also ordered psychology consult to assess vets cognitive function. He may need Hose Operator's Rehabilitation evaluation. - CAD SP CABG x 3 /s/p multiple ESE (8)in 2003: saw [place] for [place] Cardiac surgery 11-21-[address] Surgery clinic with his . He met with Dr. Holbrook [facility] He was looking well. Stamina much improved. [...] - HME Declined shingles shot on 03-23-19 - Drinks wine once in 2 week / quit smoking 50 years ago - HCV Negative 03/24/17 - FIT Negative 06/15/24 Weight: 187 lb [85.0 kg] (08/15/2013 Weight: [...] 191.4 lb [86.82 kg] (04/18/2024, BMI: 27.5 Weight: 196.6 lb [89.18 kg] (10/12/2024, BMI: 28.3 SUMMARY STATEMENT: Plan of care has been discussed with including expected therapeutic benefits and potential side effects of prescribed medication and treatments. Demarest verbalizes understanding and is in agreement with the plan of care. Patient was instructed to keep all scheduled appointments and contact obstetrics gyn for any additional problems. RTC: 7 months CLINICAL REMINDERS COMPLETED /reed/ Devin Carter MD. Staff Jose Elias. Signed: 10/12/2024 17:01 Receipt Acknowledged By: 10/17/2024 08:54 /reed/ VICKI HIGGINS MD, PhD 10/17/2024 11:00 /reed/ FLOR Romero, MSN, RN Nurse Practitioner 10/17/2024 ADDENDUM STATUS: COMPLETED There is no cardiovascular reason that he cannot drive long-term provided CT surgery has given him clearance to drive. /reed/ VICKI HIGGINS MD, PhD Signed: 10/17/2024 08:54 10/17/2024 ADDENDUM STATUS: COMPLETED received this note from card processing clerk [email or web address]. Good morning. This is trent with endocrinology and I got an addendum stating that there's paperwork on a mutual . I don't mind filling out the paperwork for Makenna Soto [id number], if it could be emailed or faxed over to me i'd appreciate it. . [phone] Please have vet take his paperwork to Dr Ocampo. alerting samreen Holley /reed/ Devin Carter MD. Staff Physana maria. Signed: 10/17/2024 11:41 Receipt Acknowledged By: 10/17/2024 12:13 /es/ TRENT BRIDGESN RN REGISTERED NURSE 10/17/2024 13:54 /reed/ SAVANNAH HOLBROOK MD Staff Physician, Cardiothoracic Surgery 10/17/2024 ADDENDUM STATUS: COMPLETED Patient Contacted, Identity verified by full name and Date of . Patient informed that DAWSON Terrazas/Endocrinology Service will complete paperwork - Vet stated that he would send paperwork to him. Vet id his Cardiothoracic Surgeon at Dr. Savannah Holbrook/Staff at both [facility] and [place]. Patient verbalized good understanding. /es/ TRENT BRIDGESN RN REGISTERED NURSE Signed: 10/17/2024 12:26 10/17/2024 ADDENDUM STATUS: COMPLETED There is no cardiac surgical reason why he cannot drive > 1 month postop. Defer to primary care for final determination. /es/ SAVANNAH HOLBROOK MD Staff Physician, Cardiothoracic Surgery Signed: 10/17/2024 13:54 11/14/2024 ADDENDUM STATUS: COMPLETED Please see Cardiology on 11/14/24 10/17/2024 ADDENDUM STATUS: COMPLETED There is no cardiovascular reason that he cannot drive long-term provided CT surgery has given him clearance to drive. /es/ VICKI HIGGINS MD, PhD Signed: 10/17/2024 08:54 /es/ Devin Carter MD. Staff Physcian. Signed: 11/14/2024 09:34 11/14/2024 ADDENDUM STATUS: COMPLETED 11/14/2024 ADDENDUM STATUS: COMPLETED cleared from an endocrine point of view as well /reed/ FLOR Romero, MSN, RN Nurse Practitioner Signed: 11/14/2024 14:40 see cardiology on 11/14/24. /reed/ Devin Carter MD. Staff Physcian. Signed: 11/14/2024 17:48 11/14/2024 ADDENDUM STATUS: COMPLETED Vet has phone appointment with PCP on 11/21/24. alerting RN to advise vet to fax new form to clinic prior to his pcp phone appointment. /reed/ Devin Carter MD. Staff Physcian. Signed: 11/14/2024 17:50 Receipt Acknowledged By: 11/21/2024 15:58 /es/ JOSE MONTIEL, RN REGISTERED NURSE 11/21/2024 ADDENDUM STATUS: COMPLETED Completed [employer] form for [facility]. Called vet for his phone appointment on 11/21/24 and left VM x 2. /es/ Devin Carter MD. Staff Jose Elias. Signed: 11/21/2024 09:12 11/21/2024 ADDENDUM STATUS: COMPLETED [facility] can you print med list for Sky [id number]. thanks /es/ Devin Carter MD. Staff Jose Elias. Signed: 11/21/2024 09:14 Receipt Acknowledged By: 11/21/2024 09:47 /es/ TRENT GARCIA RN REGISTERED NURSE 11/21/2024 ADDENDUM STATUS: COMPLETED RNCM scanned and sent following to Vet via form dsd [id number] oct 2022, office of racing secretary and [employer] [place] [employer] service department. /reed/ TRENT GARCIA RN REGISTERED NURSE Signed: 11/21/2024 09:53 11/21/2024 ADDENDUM STATUS: COMPLETED [id number] addressed form and sent via secure messaging 11/21/24 /reed/ JOSE MONTIEL, RN REGISTERED NURSE Signed: 11/21/2024 16:03 DEVIN CARTER [facility] October 12, 2024 02:03 PM NURSING NOTE: LOCAL TITLE: V15 PACT FACE TO FACE NOTE ST STANDARD TITLE: NURSING NOTE DATE OF NOTE: OCTOBER 12, 2024@14:03 ENTRY DATE: OCTOBER 12, 2024@14:03:57 AUTHOR: BERNY PAL EXP COSIGNER: URGENCY: STATUS: COMPLETED Provider Visit: Patient Identifiers : Full Name Date of Reason for visit: Established Follow-Up Mode of Arrival: Ambulatory Allergy Review: LISINOPRIL AUG 09, 2018 (OBSERVED) Symptoms: HYPERKALEMIA Comments: AUG 09, 2018@16:55:43 lisinopril caused hyperkalemia CIPROFLOXACIN JUN 17, 2012 (HISTORICAL) Symptoms: MUSCLE PAIN Allergy list reviewed and remains current. Recent Vital Signs: Temperature: 98.4 F [36.9 C] (10/12/2024 13:56) Pulse: 89 (10/12/2024 13:56) Respiration: 16 (10/12/2024 13:56) B/P: 134/80 (10/12/2024 13:56) Pain: 0 (10/12/2024 13:56) Wt: 196.6 lb [89.18 kg] (10/12/2024 13:56) Ht: 70 in [177.8 cm] (10/12/2024 13:56) BMI: 28.3 POX: 97% (10/12/2024 13:56) Blood sugar glucometer readin PERSONAL HEALTH INVENTORY Notes: No data available for PHI note titles PERSONAL HEALTH INVENTORY - MAP: 04/18/2024 Personal Health Plan [place] (MAP) Family 10/15/2022 Personal Health Plan [place] (MAP) Traveling 11/09/2020 Personal Health Plan [place] (MAP) Traveling makes vet happy. What matters most to you in your life right now? -- 's Response: family and sporting events WHOLE HEALTH SHARED GOALS: PERSONAL HEALTH PLAN - SHARED GOALS: 04/18/2024 [facility] Shared Goals none SHARED GOALS none Would you like to discuss any personal problem, family problem, alcohol use, drug use, or a mental or emotional illness? No Contact provided Primary Care phone number and encouraged to call if any questions or concerns. Review that after hours nurse line ext.[phone] and emergency room are available 22/12 for patient use. Contact verbalized good understanding. Influenza Immunization - L,N,P,PH,U: Deferral / Refusal The patient declines to receive the recommended dose of seasonal influenza vaccine. Immunization: INFLUENZA, UNSPECIFIED FORMULATION Refusal Reason: PATIENT DECISION Patient refuses all immunization(s) in the FLU group Date Documented: 10/12/24 14:08 /reed/ BERNY PAL LPN LICENSED PRACTIAL NURSE Signed: 10/12/2024 14:09 BERNY PAL [facility]
--- OUTSIDE RECORDS SUMMARY | 2024-10-18 05:00 | XMS_ITS | Encounter Summary ---
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 Date/Time Encounter Type Encounter Description Reason Provider Source October 18, 2024 10:00 AM NUBHVL XM PHYS/QHP 1ST HR [facility] INDIV ICD-10-CM R41.9 Unsp symptoms and signs w cognitive functions and awareness TAYLOR GONZALEZ Deng Encounter Template Text not used by [place] Assessments - Encounter Diagnoses This section includes the primary and secondary diagnoses documented for the Encounter. Date/Time Primary/Secondary Diagnosis Diagnosis Name Provider Source October 24, 2024 10:37 AM PRIMARY Unsp symptoms and signs w cognitive functions and awareness TAYLOR GONZALEZ [facility] Plan of Treatment: Future Appointments (+ 6 months) and Future Tests (+/- 45 days) The Plan of Treatment section includes future care activities for the patient from all [place] treatmentfacilities. This section includes future appointments and future orders which are active, pending or scheduled. Future Appointments This section includes appointments that were scheduled to occur 6 months from the date of the Encounter, up to a maximum of 20 appointments. The data comes from all [place] treatment facilities. Appointment Date/Time Appointment Type Appointme nt Facility Name October 25, 2024 01:00 PM AMBULATORY - NONE [facility] Nov 21, 2024 08:30 AM AMBULATORY - MEDICINE [facility] Nov 21, 2024 11:00 AM AMBULATORY - NONE [facility] Dec 06, 2024 10:40 AM AMBULATORY - MEDICINE [facility] Dec 08, 2024 12:15 PM AMBULATORY - MEDICINE [facility] Dec 08, 2024 12:30 PM AMBULATORY - NONE [facility] Dec 28, 2024 02:30 PM AMBULATORY - MEDICINE [facility] Jan 26, 2025 12:45 PM AMBULATORY - MEDICINE [facility] Feb 08, 2025 12:30 PM AMBULATORY - MEDICINE [facility] Feb 23, 2025 01:00 PM AMBULATORY - MEDICINE [facility] Mar 07, 2025 12:30 PM AMBULATORY - MEDICINE [facility] Apr 03, 2025 11:00 AM AMBULATORY - SURGERY [facility] Lab Results: +/- 30 days of the [...] Type Comment October 12, 2024 02:02 PM [facility] GLUCOSE,BLOOD-poct (STL) BLOOD Specimen Type: BLOOD Comment: Test Performed by: [id number] Meter #: [id number] Ordering Provider: DEVIN CARTER Report Released Date/Time: October 12, 2024 03:22 PM Reporting Lab: [address] [id number] Performing Lab: [address] [address] GLUCOSE,BLOOD-poct (STL) 114 mg/dL H 72-99 October 06, 2024 11:34 AM [facility] C-PEPTIDE SERUM Specimen Type: SERUM Comment: Test Performed by [employer] [facility], [address] [place] [address] Shon Markham M.D., Ph.D., Director of Laboratories , CLIA [id number] Test Performed by [employer], [employer] [facility], [address] [place] [address] Shon Markham M.D., Ph.D., Director of Laboratories , CLIA [id number] Ordering Provider: RADHA FLOYD Report Released Date/Time: October 06, 2024 11:23 AM Reporting Lab: [facility] [address] [facility] [address] Performing Lab: [address] C-PEPTIDE 0.75 ng/mL L 0.80-3.85 October 06, 2024 11:34 AM [facility] CORTISOL(L Eff 03/08) PLASMA Specimen Type: PLASMA Comment: No hemolysis noted. Ordering Provider: RADHA FLOYD Report Released Date/Time: October 06, 2024 11:23 AM Reporting Lab: [facility] [address] [facility] [phone] Performing Lab: [facility] [address] [place] [phone] CORTISOL(STL Eff 03/08) 8.100 ug/dL October 06, 2024 11:34 AM [facility] HGA1C BLOOD Specimen Type: BLOOD No comment entered. Ordering Provider: RADHA FLOYD Report Released Date/Time: October 06, 2024 11:23 AM Reporting Lab: [address] [address] Performing Lab: [address] [address] HGA1C 7.2 H 4.0-6.0 October 06, 2024 11:34 AM [facility] TSH (MA-PB) SERUM Specimen Type: SERUM No comment entered. Ordering Provider: RADHA FLOYD Report Released Date/Time: October 06, 2024 11:23 AM Reporting Lab: [address] [address] Performing Lab: [facility] [address] [place] [phone] TSH 2.116 u[IU]/mL 0.47-5 October 06, 2024 11:34 AM [facility] COMPREHENSIVE METABOLIC PANEL PLASMA Specimen Type: PLASMA Comment: No hemolysis noted. Ordering Provider: RADHA FLOYD Report Released Date/Time: October 06, 2024 11:23 AM Reporting Lab: [address] [address] Performing Lab: [facility] [address] [place] [phone] CREATININE 0.99 mg/dL 0.7-1.3 UREA NITROGEN 23.5 [...] U/L 8-40 EGFR (CKD-EPI 2020) 78.5 >60 Social History: Smoking Status (Most current) and Tobacco Use (All prior to encounter date) This section includes the most current, and the historical, smoking and tobacco- related health factors from the [place] facility where the Encounter took place. Current Smoking Status This section includes the most current smoking, or tobacco-related health factor, from the [place] facility where the Encounter took place. Date/Time Current Smoking Status Comment Lux [facility]y Apr 18, 2024 11:00 AM VA-TOBACCO NEVER U SED CIGARETTES [facility] Tobacco Use History This section includes a history of the smoking, or tobacco-related health factors, that were collected on or before the date of the Encounter. The data comes from the [place] facility where the Encounter took place. Date/Time Smoking Status/Tobacco Use Comment F acility Apr 18, 2024 11:00 AM VA-TOBACCO NEVER U SED OTHER TYPE [facility] Nov 09, 2020 11:00 AM VA-TOBACCO NEVER USED [facility] October 22, 2017 03:06 PM VA-TOBACCO NEVER USED [facility] Mar 06, 2017 01:35 PM LIFETIME NON-USER OF TOBACCO [facility] Advance Directives: All historical and current Section Date Range: From patient's date of to the date document was created. This section includes ALL of a patient's completed or amended [place] Advance and Rescinded Directives. The entries below indicate that a directive exists for the patient, but an actual copy is not included with this document. The data comes from all [place] facilities. Date Advance Directives Provider Source Nov 19, 2015 ADVANCE DIRECTIVE DISCUSSION [facility]ON[facility]. [facility] Encounter Notes: All associated encounter notes This section contains the clinical notes associated to the Encounter. Date/Time Encounter Note(s) Provider Source October 18, 2024 11:38 AM ADDENDUM: LOCAL TITLE: Addendum STANDARD TITLE: ADDENDUM DATE OF NOTE: OCTOBER 18, 2024@11:38:56 ENTRY DATE: OCTOBER 18, 2024@11:38:57 AUTHOR: TAYLOR GONZALEZ EXP COSIGNER: URGENCY: STATUS: COMPLETED Alerting PCP Dr. Carter. Please see completed cognitive assessment. 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 /es/ Taylor Gonzalez PsyD Clinical Psychologist Signed: 10/18/2024 11:40 Receipt Acknowledged By: 10/18/2024 14:55 /es/ Devin Carter MD. Staff Physcian. 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 Informed about *limits to confidentiality - charting/consultation with medical team - actions for safety of self/dependents *duration and purpose of this appointment as well as the potential risk, benefits, and complications of participating in treatment. The expressed understanding and consented to participate in services. 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 He reported that he has diabetes and the State of [place] requires medical clearance. - Orly reports his memory overall is good. His vocabulary/ word finding can be challenging at times as well as memory for names (he did not display this during the interview). He occasionally forgets why he is in a room, occasionally forgets an event when he forgets to look at his calendar. First noticed: Vocabulary noticeable in the past year Course of decline [gradual or otherwise]: gradual SUBJECTIVE AREAS OF COGNITIVE CONCERN Forgetfulness? Not significant Difficulty remembering appointments, events? Not significant Repeats questions, stories or statements? No Trouble concentrating or getting easily distracted? No Word-finding problems [frequent or with paraphasias]? Minimal Trouble learning to use new tools, appliances, or devices? No Difficulty with problem-solving or managing previously well-managed tasks? No Getting lost while driving? No Wandering from the house and getting lost? No Increased confusion after illness or hospitalization? No Does patient have insight into cognitive problems if they are present? n/a BEHAVIORAL: Personality changes? No Disinhibition? No Paranoia (stealing, strangers)? No Delusions or hallucinations? No ADL functioning [independent, needs assistance, dependent]? independent IADL functioning [independent, needs assistance, dependent]? independent Indications for problems with the following? Sleep - Orly has always had sleep difficulties, low blood sugars at night and frequent urination awaken him, but he is able to fall back asleep, he takes Tylenol PM nightly, naps during the day, had sleep study was on CPAP but no longer using it because it was not beneficial Mood - Orly gets angry, sometimes he rants, goes for a walk, no physical violence. Vet says he has a flat affect, believes he should have multiple times and feels that since he is alive he should be doing more with his life. Substance use - Moderate ETOH (1 glass 3 times per month) no rec drug use ASSESSMENT: Patton Cognitive Assessment (MoCA) was administered today. Of note, the MoCA is not intended to diagnose a condition. It is a screening tool. was given the rationale for the cognitive screening and gave consent for the testing. appeared to give good effort during testing; this screening appears to be a valid assessment of the [place]'s current cognitive functioning. scored 28/30. The MoCA's suggested cut-off score is 26; the demonstrated some impairment in memory/ delayed recall DOMAINS. Otherwise his performance was generally normal. He was fully oriented to time and place. His scores are below. [place] reported having a Master's Degree; consequently, one point was added to the Vet's total score. Patton Cognitive Assessment (MoCA) Trails: 06/01 Figure Copy: Clock Draw: 08/01 Namin/3 DSF: 06/01 DSB: 06/01 Initiation/Inhibition: 06/01 Serial 7s: 08/01 Repetition: 07/03 Fluency: 06/01 Similarities: 07/03 Delayed Recall: 08/03 Orientation: 11/04 Total Score: 28/30 The was provided feedback on his performance and given time to ask questions. LETHALITY ASSESSMENT -Are you having thoughts of harming yourself or others? No -Any history of suicide attempts: No -Risk Factors: irritability and poor sleep -Protective Factors: no SI or history of such, , tx compliant -Risk level: [X]LOW [ ]MODERATE [ ]HIGH did not appear to be at imminent risk to harm self or others at this time. [place] considered sustainable at the outpatient level of care. 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 -Any history of violence: No denied current HI intent, plan, or means. MENTAL STATUS: [X] Within normal limits [ ] Other: ASSIST PHASE: [place] and writing provider collaboratively discussed relevant factors that may impact cognition such as: [X] Sleep- Orly takes Tylenol PM, he was offered follow up appointments to discuss sleep [X] Mood- Brandyt is prescribed Citalopram 20 mg daily by an outside provider, he was offered psychotherapy and will consider scheduling a follow up in the future [ ] Psychosocial stress [ ] Substance use [ ] Health conditions/medication side effects and writing provider had a shared-decision making discussion about treatment planning to address current cognitive functioning and/or factors that may impact cognition. 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 Orly does not have specific concerns related to his memory/ cognitive functioning. While Brandyt described minor word finding difficulties, this appears to be within expected limits. Brandyt scored 28/30 on the MOCA which is well within normal limits. Vet mentioned irritability, possible depression, and sleep difficulties. He was educated about how sleep and mood may impact cognition. He was encouraged to schedule a follow up in the future should he be interested in pursuing care. Orly remains active, walking regularly. [facility]. PLAN OF CARE: Engaged [place] in shared-decision making when creating the following initial treatment plan: No follow-up care at this time. Should the 's cognition worsen, the can be referred back to [facility] for repeat testing. [place] aware that requests for PC[facility] services can be made at any PC visit. RECOMMENDATONS FOR PCP: Outcome and recommendations will be discussed with the referring provider and other relevant PACT team members as needed. EDUCATION: [place] was provided with opportunity to address any questions or concerns. The was provided with written contact information. The is aware of the Suicide Prevention Hotline number ( ) in case of crisis. If experiencing a mental health emergency, the should present to nearest emergency room or call 911 immediately. /reed/ Taylor Gonzalez PsyD Clinical Psychologist Signed: 10/18/2024 11:38 TAYLOR GONZALEZ [facility] October 18, 2024 10:02 AM PSYCHOLOGY INITIAL EVALUATION NOTE: LOCAL TITLE: PRIMARY CARE PSYCHOLOGY INITIAL NOTE ST STANDARD TITLE: PSYCHOLOGY INITIAL EVALUATION NOTE DATE OF NOTE: OCTOBER 18, 2024@10:02 ENTRY DATE: OCTOBER 18, 2024@10:02:44 AUTHOR: TAYLOR GONZALEZ EXP COSIGNER: URGENCY: STATUS: COMPLETED PRIMARY CARE PSYCHOLOGY INITIAL NOTE STL Has ADDENDA NAME: SKY FUENTES DATE OF : Jun DIAGNOSIS BEING TREATED: unspecified symptoms and signs involving cognitive functions and awareness CPT Code: 84140 SERVICE CONNECTION: Service Connected: 30% Rated Disabilities: 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 Informed about *limits to confidentiality - charting/consultation with medical team - actions for safety of self/dependents *duration and purpose of this appointment as well as the potential risk, benefits, and complications of participating in treatment. The [place] expressed understanding and consented to participate in services. 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 He reported that he has diabetes and the [place] of [place] requires medical clearance. - Vet reports his memory overall is good. His vocabulary/ word finding can be challenging at times as well as memory for names (he did not display this during the interview). He occasionally forgets why he is in a room, occasionally forgets an event when he forgets to look at his calendar. First noticed: Vocabulary noticeable in the past year Course of decline [gradual or otherwise]: gradual SUBJECTIVE AREAS OF COGNITIVE CONCERN Forgetfulness? Not significant Difficulty remembering appointments, events? Not significant Repeats questions, stories or statements? No Trouble concentrating or getting easily distracted? No Word-finding problems [frequent or with paraphasias]? Minimal Trouble learning to use new tools, appliances, or devices? No Difficulty with problem-solving or managing previously well-managed tasks? No Getting lost while driving? No Wandering from the house and getting lost? No Increased confusion after illness or hospitalization? No Does patient have insight into cognitive problems if they are present? n/a BEHAVIORAL: Personality changes? No Disinhibition? No Paranoia (stealing, strangers)? No Delusions or hallucinations? No ADL functioning [independent, needs assistance, dependent]? independent IADL functioning [independent, needs assistance, dependent]? independent Indications for problems with the following? Sleep - Orly has always had sleep difficulties, low blood sugars at night and frequent urination awaken him, but he is able to fall back asleep, he takes Tylenol PM nightly, naps during the day, had sleep study was on CPAP but no longer using it because it was not beneficial Mood - Orly gets angry, sometimes he rants, goes for a walk, no physical violence. Orly says he has a flat affect, believes he should have multiple times and feels that since he is alive he should be doing more with his life. Substance use - Moderate ETOH (1 glass 3 times per month) no rec drug use ASSESSMENT: Patton Cognitive Assessment (MoCA) was administered today. Of note, the MoCA is not intended to diagnose a condition. It is a screening tool. Nick was given the rationale for the cognitive screening and gave consent for the testing. Nick appeared to give good effort during testing; this screening appears to be a valid assessment of the 's current cognitive functioning. [place] scored 28/30. The MoCA's suggested cut-off score is 26; the demonstrated some impairment in memory/ delayed recall DOMAINS. Otherwise his performance was generally normal. He was fully oriented to time and place. His scores are below. reported having a Master's Degree; consequently, one point was added to the Vet's total score. Nolan Cognitive Assessment (MoCA) Trails: 06/01 Figure Copy: Clock Draw: 08/01 Namin/3 DSF: 06/01 DSB: 06/01 Initiation/Inhibition: 06/01 Serial 7s: 08/01 Repetition: 07/03 Fluency: 06/01 Similarities: 07/03 Delayed Recall: 08/03 Orientation: 11/04 Total Score: 28/30 The [place] was provided feedback on his performance and given time to ask questions. LETHALITY ASSESSMENT -Are you having thoughts of harming yourself or others? No -Any history of suicide attempts: No -Risk Factors: irritability and poor sleep -Protective Factors: no SI or history of such, , tx compliant -Risk level: [X]LOW [ ]MODERATE [ ]HIGH did not appear to be at imminent risk to harm self or others at this time. considered sustainable at the outpatient level of care. 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 -Any history of violence: No [place] denied current HI intent, plan, or means. MENTAL STATUS: [X] Within normal limits [ ] Other: ASSIST PHASE: [place] and writing provider collaboratively discussed relevant factors that may impact cognition such as: [X] Sleep- Vet takes Tylenol PM, he was offered follow up appointments to discuss sleep [X] Mood- Vet is prescribed Citalopram 20 mg daily by an outside provider, he was offered psychotherapy and will consider scheduling a follow up in the future [ ] Psychosocial stress [ ] Substance use [ ] Health conditions/medication side effects [place] and writing provider had a shared-decision making discussion about treatment planning to address current cognitive functioning and/or factors that may impact cognition. 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 Orly does not have specific concerns related to his memory/ cognitive functioning. While Brandyt described minor word finding difficulties, this appears to be within expected limits. Brandyt scored 28/30 on the MOCA which is well within normal limits. Brandyt mentioned irritability, possible depression, and sleep difficulties. He was educated about how sleep and mood may impact cognition. He was encouraged to schedule a follow up in the future should he be interested in pursuing MH care. Orly remains active, walking regularly. He was also [facility]. PLAN OF CARE: Engaged in shared-decision making when creating the following initial treatment plan: No follow-up care at this time. Should the 's cognition worsen, the can be referred back to [facility] for repeat testing. aware that requests for PCMHI services can be made at any PC visit. RECOMMENDATONS FOR PCP: Outcome and recommendations will be discussed with the referring provider and other relevant PACT team members as needed. EDUCATION: [place] was provided with opportunity to address any questions or concerns. The was provided with written contact information. The is aware of the Suicide Prevention Hotline number ( ) in case of crisis. If experiencing a mental health emergency, the should present to nearest emergency room or call 911 immediately. /reed/ Taylor Gonzalez PsyD Clinical Psychologist Signed: 10/18/2024 11:38 10/18/2024 ADDENDUM STATUS: COMPLETED Alerting PCP Dr. Carter. Please see completed cognitive assessment. 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 /reed/ Taylor Gonzalez PsyD Clinical Psychologist Signed: 10/18/2024 11:40 Receipt Acknowledged By: * AWAITING SIGNATURE * DEVIN CARTER DEVORAH T [facility]
--- OUTSIDE RECORDS SUMMARY | 2024-10-18 09:35 | XMS_ITS | Encounter Summary ---
Author Name [facility] [place] [facility] [place] Address [address] [place] [address] Care Team Providers Care Broom Stitcher Name Role Phone DEVIN CARTER Primary Care [...] PART A Jun 01, 2012 PART A [id number] [phone] PILOMARYSEMAKENNA,SENA VID PATIENT MEDICARE (WNR) MEDICARE (M) PART B Jun 01, 2012 PART B [id number] [id number] PILOMARYSEEN,DA VID PATIENT MEDICARE (WNR) MEDICARE (M) PART A Jun 01, 2012 PART A [id number] PF90 PILOMARYSEEN,DA VID PATIENT MEDICARE (WNR) MEDICARE (M) PART B Jun 01, 2012 PART B [id number] SENA FUENTES PATIENT MEDICARE (WNR) MEDICARE (M) PART A Jun 01, 1999 PART A [id number] [id number] SENA FUENTES PATIENT Selected Encounter This section includes the information on record at [place] for the Encounter. Date/Time Encounter Type Encounter Description Reason Provider Source October 18, 2024 02:35 PM NQHP OL DIG ASSMT&MGMT 21+ CARDIOLOGY ICD-10-CM I50.20 Unspecified systolic (congestive) heart failure KAIN RUFFIN [facility] Encounter Template Text not used by [place] Assessments - Encounter Diagnoses This section includes the primary and secondary diagnoses documented for the Encounter. Date/Time Primary/Secondary Diagnosis Diagnosis Name Provider Source October 18, 2024 02:45 PM PRIMARY Unspecified systolic (congestive) heart failure KAIN RUFFIN [facility] October 18, 2024 02:45 PM SECONDARY Presence of automatic (implantable) cardiac defibrillator KAIN RUFFIN [facility] Plan of Treatment: Future Appointments (+ 6 months) and Future Tests (+/- 45 days) The Plan of Treatment section includes future care activities for the patient from all [place] [facility]. This section includes future appointments and future orders which are active, pending or scheduled. Future Appointments This section includes appointments that were scheduled to occur 6 months from the date of the Encounter, up to a maximum of 20 appointments. The data comes from all [place] treatment facilities. Appointment Date/Time Appointment Type Appointme nt Facility Name October 25, 2024 01:00 PM AMBULATORY - NONE [facility] Nov 21, 2024 08:30 AM AMBULATORY - MEDICINE [facility] Nov 21, 2024 11:00 AM AMBULATORY - NONE [facility] Dec 06, 2024 10:40 AM AMBULATORY - MEDICINE [facility] Dec 08, 2024 12:15 PM AMBULATORY - MEDICINE [facility] Dec 08, 2024 12:30 PM AMBULATORY - NONE . [facility] Dec 28, 2024 02:30 PM AMBULATORY - MEDICINE [facility] Jan 26, 2025 12:45 PM AMBULATORY - MEDICINE [facility] Feb 08, 2025 12:30 PM AMBULATORY - MEDICINE [facility] Feb 23, 2025 01:00 PM AMBULATORY - MEDICINE [facility] Mar 07, 2025 12:30 PM AMBULATORY - MEDICINE [facility] Apr 03, 2025 11:00 AM AMBULATORY - SURGERY Ledy Lopez [facility] Lab Results: +/- 30 days of the [...] Specimen Type: BLOOD Comment: Test Performed by: [id number] Meter #: [id number] Ordering Provider: DEVIN CARTER Report Released Date/Time: October 12, 2024 03:22 PM Reporting Lab: [place] [id number] [facility] [address] Performing Lab: [address] [address] GLUCOSE,BLOOD-poct (STL) 114 mg/dL H 72-99 October 06, 2024 11:34 AM [facility] C-PEPTIDE SERUM Specimen Type: SERUM Comment: Test Performed by [place], [employer] [facility], [address] [place] [address] Shon Markham M.D., Ph.D., Director of Laboratories , CLIA [id number] Test Performed by [employer] [place], [employer] [facility], [address] [place] [address] Shon Markham M.D., Ph.D., Director of Laboratories , CLIA [id number] Ordering Provider: RADHA FLOYD Report Released Date/Time: October 06, 2024 11:23 AM Reporting Lab: [facility] [address] [facility] [address] Performing Lab: [facility] [address] [facility] [id number] C-PEPTIDE 0.75 ng/mL L 0.80-3.85 October 06, 2024 11:34 AM [facility] CORTISOL(L Eff 03/08) PLASMA Specimen Type: PLASMA Comment: No hemolysis noted. Ordering Provider: RADHA FLOYD Report Released Date/Time: October 06, 2024 11:23 AM Reporting Lab: [facility] [address] [facility] [address] Performing Lab: [facility] [address] [facility] [address] CORTISOL(STL Eff 03/08) 8.100 ug/dL October 06, 2024 11:34 AM [facility] HGA1C BLOOD Specimen Type: BLOOD No comment entered. Ordering Provider: RADHA FLOYD Report Released Date/Time: October 06, 2024 11:23 AM Reporting Lab: [facility] [address] [facility] [address] Performing Lab: [facility] [address] [facility] [address] HGA1C 7.2 H 4.0-6.0 October 06, 2024 11:34 AM [facility] TSH (MA-PB) SERUM Specimen Type: SERUM No comment entered. Ordering Provider: RADHA FLOYD Report Released Date/Time: October 06, 2024 11:23 AM Reporting Lab: [facility] [address] [facility] [address] Performing Lab: [facility] [address] [facility] [address] TSH 2.116 u[IU]/mL 0.47-5 October 06, 2024 11:34 AM [facility] COMPREHENSIVE METABOLIC PANEL PLASMA Specimen Type: PLASMA Comment: No hemolysis noted. Ordering Provider: RADHA FLOYD Report Released Date/Time: October 06, 2024 11:23 AM Reporting Lab: [facility] [address] [facility] [address] Performing Lab: [facility] [address] [facility] [address] CREATININE 0.99 mg/dL 0.7-1.3 UREA NITROGEN 23.5 [...] and tobacco- related health factors from the [place] facility where the Encounter took place. Current Smoking Status This section includes the most current smoking, or tobacco-related health factor, from the [place] facility where the Encounter took place. Date/Time Current Smoking Status Comment Lux alfonso October 15, 2023 06:15 AM ORYX ADMIT TOBACCO SCREEN NO [facility] Tobacco Use History This section includes a history of the smoking, or tobacco-related health factors, that were collected on or before the date of the Encounter. The data comes from the [place] facility where the Encounter took place. Date/Time Smoking Status/Tobacco Use Comment Giana england October 14, 2022 01:17 PM VA-TOBACCO NEVER USED [facility] Mar 13, 2022 05:25 PM ORYX ADMIT TOBACCO SCREEN NO [facility] Apr 20, 2019 11:02 AM VA-TOBACCO FORMER USER [facility] Apr 20, 2019 11:02 AM VA-TOBACCO QUIT 15 YRS OR MORE [facility] Nov 19, 2015 09:23 AM LIFETIME NON-USER OF TOBACCO [facility] May 02, 2014 08:44 AM LIFETIME NON-USER OF TOBACCO [facility] Jun 15, 2013 04:36 PM LIFETIME NON-USER OF TOBACCO [facility] Jun 17, 2012 09:31 AM LIFETIME NON-USER OF TOBACCO [facility] Advance Directives: All historical and current Section Date Range: From patient's date of to the date document was created. This section includes ALL of a patient's completed or amended [place] Advance and Rescinded Directives. The entries below indicate that a directive exists for the patient, but an actual copy is not included with this document. The data comes from all [place] facilities. Date Advance Directives Provider Source Nov 19, 2015 ADVANCE DIRECTIVE DISCUSSION JENNIFER LONDONO [facility] Encounter Notes: All associated encounter notes This section contains the clinical notes associated to the Encounter. Date/Time Encounter Note(s) Provider Source October 18, 2024 02:35 PM CARDIOLOGY GENETICS TEACHER NOTE: LOCAL TITLE: [facility] CARDIOLOGY [facility] STANDARD TITLE: CARDIOLOGY GENETICS TEACHER NOTE DATE OF NOTE: OCTOBER 18, 2024@14:35 ENTRY DATE: OCTOBER 18, 2024@14:35:37 AUTHOR: ROBYN RUFFIN EXP COSIGNER: URGENCY: STATUS: COMPLETED Asked to reveiw Remote monitoring/F2F downloads of ICD. Reveiwed up to last download 09/15/2024 Pt has only the one treated Ventricular event over the lifetime of cortney (since 03/13/2022) Care ALerts are on for x1 shock (or more) to send in an auto download Vet's remote is offline since 09/19/2024 Spoke with vet- They have been moving furniture/getting a new mattress. He is home, it is unplugged. Will leave it charge up for 30 min or so and we will touch base to send in a manual tx. Vet able to send in- NO FURTHER SHOCKS since implant 31 months ago and he is back on line /reed/ Robyn Ruffin,RN,BSN Registered Nurse Signed: 10/18/2024 15:10 Receipt Acknowledged By: 10/18/2024 15:45 /es/ Chayo Daniel PA-C Cardiology Physician Book Critic 10/19/2024 08:06 /es/ CHARLINE TOMAS MD CLINICAL CARDIAC CARBON ELECTRODES SUPERVISOR 10/18/2024 17:10 /es/ Devin Carter MD. Staff Jose Elias. ANGELA RUFFIN [facility]
--- OUTSIDE RECORDS SUMMARY | 2024-10-25 08:00 | XMS_ITS ---
[place] MEDICAL NUTRITION INDIV IN [facility] Encounter Summary Created on: January 31, 2025 SKY SOTO : 1945 Sex: Male Author Name [facility] [place] [facility] [place] Organization [place] Address [address] [place] [address] Care Team Providers Care Assembler Skylights Name Role Phone RAUL DEVIN Primary Care [...] PART A Jun 01, 2012 PART A [id number] PF90 SENA SOTO VID PATIENT MEDICARE (WNR) MEDICARE (M) PART B Jun 01, 2012 PART B [id number] PF90 [phone] PILOMARYSEMAKENNA,SENA VID PATIENT MEDICARE (WNR) MEDICARE (M) PART A Jun 01, 2012 PART A [id number] PF90 PILOMARYSEMAKENNA,SENA VID PATIENT MEDICARE (WNR) MEDICARE (M) PART B Jun 01, 2012 PART B [id number] PF90 ALFREDO,SENA VID PATIENT MEDICARE (WNR) MEDICARE (M) PART A Jun 01, 1999 PART A [id number] [id number] SENA SOTO PATIENT Selected Encounter This section includes the information on record at [place] for the Encounter. Date/Time Encounter Type Encounter Description Reason Provider Source October 25, 2024 01:00 PM MEDICAL NUTRITION INDIV IN PRIMARY CARE/MEDICINE ICD-10-CM E10.649 Type 1 diabetes mellitus with hypoglycemia without coma SAMANTHA ARRIETA [facility] Encounter Template Text not used by [place] Assessments - Encounter Diagnoses This section includes the primary and secondary diagnoses documented for the Encounter. Date/Time Primary/Secondary Diagnosis Diagnosis Name Provider Source October 25, 2024 02:51 PM PRIMARY Type 1 diabetes mellitus with hypoglycemia without coma [facility] October 25, 2024 02:51 PM SECONDARY Dietary counseling and surveillance [facility] Plan of Treatment: Future Appointments (+ 6 months) and Future Tests (+/- 45 days) The Plan of Treatment section includes future care activities for the patient from all [place] treatmentfacilities. This section includes future appointments and future orders which are active, pending or scheduled. Future Appointments This section includes appointments that were scheduled to occur 6 months from the date of the Encounter, up to a maximum of 20 appointments. The data comes from all [place] treatment facilities. Appointment Date/Time Appointment Type Appointme nt Facility Name Nov 21, 2024 08:30 AM AMBULATORY - MEDICINE [facility] Nov 21, 2024 11:00 AM AMBULATORY - NONE [facility] Dec 06, 2024 10:40 AM AMBULATORY - MEDICINE [facility] Dec 08, 2024 12:15 PM AMBULATORY - MEDICINE [facility] Dec 08, 2024 12:30 PM AMBULATORY - NONE [facility] Dec 28, 2024 02:30 PM AMBULATORY - MEDICINE [facility] Jan 26, 2025 12:45 PM AMBULATORY - MEDICINE [facility] Feb 08, 2025 12:30 PM AMBULATORY - MEDICINE [facility] Feb 23, 2025 01:00 PM AMBULATORY - MEDICINE [facility] Mar 07, 2025 12:30 PM AMBULATORY - MEDICINE [facility] Apr 03, 2025 11:00 AM AMBULATORY - SURGERY [facility] Apr 25, 2025 03:00 PM AMBULATORY - SURGERY [facility] John [facility] Lab Results: +/- 30 days [...] Type Comment October 12, 2024 02:02 PM [facility] GLUCOSE,BLOOD-poct (STL) BLOOD Specimen Type: BLOOD Comment: Test Performed by: [id number] Meter #: [id number] Ordering Provider: DEVIN CARTER Report Released Date/Time: October 12, 2024 03:22 PM Reporting Lab: [address] [address] Performing Lab: [place] [id number] [facility] [address] GLUCOSE,BLOOD-poct (STL) 114 mg/dL H 72-99 October 06, 2024 11:34 AM [facility] C-PEPTIDE SERUM Specimen Type: SERUM Comment: Test Performed by [employer], [employer] [facility], [address] [place] [address] Shon Markham M.D., Ph.D., Director of Laboratories , CLIA [id number] Test Performed by [employer], [employer] [facility], [address] [place] [address] Shon Markham M.D., Ph.D., Director of Laboratories , CLIA [id number] Ordering Provider: RADHA FLOYD Report Released Date/Time: October 06, 2024 11:23 AM Reporting Lab: [facility] [address] [facility] [address] Performing Lab: [address] C-PEPTIDE 0.75 ng/mL L 0.80-3.85 October 06, 2024 11:34 AM [facility] CORTISOL(L Eff 03/08) PLASMA Specimen Type: PLASMA Comment: No hemolysis noted. Ordering Provider: RADHA FLOYD Report Released Date/Time: October 06, 2024 11:23 AM Reporting Lab: [address] [address] Performing Lab: [address] [address] CORTISOL(STL Eff 03/08) 8.100 ug/dL October 06, 2024 11:34 AM [facility] HGA1C BLOOD Specimen Type: BLOOD No comment entered. Ordering Provider: RADHA FLOYD Report Released Date/Time: October 06, 2024 11:23 AM Reporting Lab: [address] [address] Performing Lab: [address] [address] HGA1C 7.2 H 4.0-6.0 October 06, 2024 11:34 AM [facility] TSH (MA-PB) SERUM Specimen Type: SERUM No comment entered. Ordering Provider: RADHA FLOYD Report Released Date/Time: October 06, 2024 11:23 AM Reporting Lab: [address] [address] Performing Lab: [address] [address] TSH 2.116 u[IU]/mL 0.47-5 October 06, 2024 11:34 AM [facility] COMPREHENSIVE METABOLIC PANEL PLASMA Specimen Type: PLASMA Comment: No hemolysis noted. Ordering Provider: RADHA FLOYD Report Released Date/Time: October 06, 2024 11:23 AM Reporting Lab: [address] [address] Performing Lab: [address] [place] [address] CREATININE 0.99 mg/dL 0.7-1.3 UREA NITROGEN 23.5 [...] and tobacco- related health factors from the [place] facility where the Encounter took place. Current Smoking Status This section includes the most current smoking, or tobacco-related health factor, from the [place] facility where the Encounter took place. Date/Time Current Smoking Status Comment Lux ity Apr 18, 2024 11:00 AM SC-TOBACCO NEVER U SED CIGARETTES [facility] Tobacco Use History This section includes a history of the smoking, or tobacco-related health factors, that were collected on or before the date of the Encounter. The data comes from the [place] facility where the Encounter took place. Date/Time Smoking Status/Tobacco Use Comment F acility Apr 18, 2024 11:00 AM VA-TOBACCO NEVER U SED OTHER TYPE [facility] Nov 09, 2020 11:00 AM VA-TOBACCO NEVER USED [facility] October 22, 2017 03:06 PM SC-TOBACCO NEVER USED [facility] Mar 06, 2017 01:35 PM LIFETIME NON-USER OF TOBACCO [facility] Advance Directives: All historical and current Section Date Range: From patient's date of to the date document was created. This section includes ALL of a patient's completed or amended [place] Advance and Rescinded Directives. The entries below indicate that a directive exists for the patient, but an actual copy is not included with this document. The data comes from all [place] facilities. Date Advance Directives Provider Source Nov 19, 2015 ADVANCE DIRECTIVE DISCUSSION JENNIFER LONDONO [facility] Encounter Notes: All associated encounter notes This section contains the clinical notes associated to the Encounter. Date/Time Encounter Note(s) Provider Source October 25, 2024 12:51 PM NUTRITION DIETETICS CONSULT: LOCAL TITLE: Nutrition Consult St STANDARD TITLE: NUTRITION DIETETICS CONSULT DATE OF NOTE: OCTOBER 25, 2024@12:51 ENTRY DATE: OCTOBER 25, 2024@12:51:53 AUTHOR: KAMILAH ARRIETA EXP COSIGNER: URGENCY: STATUS: COMPLETED Modality of Care: Face to face Worn by [employer]: none Worn by employee: mask NUTRITION ASSESSMENT Diagnosis: Carb Counting Education for Insulin Pump Eligibility Time spent with [employer]: 62 minutes BMI: 28.3 Last appointment date: initial CLIENT HISTORY Patient Medical History: 1) Kidney stone (SNOMED CT 31846689) 2) Mixed hyperlipidemia (SNOMED CT 370587092) 3) Permanent cardiac pacemaker (SNOMED CT [id number]) 4) Elevated Liver Function Tests 5) Benign [...] grafting 20) Impacted cerumen of bilateral ears 21) Biventricular automatic implantable cardioverter defibrillator in situ Social history: Pt presents for appt with his , Arley. FOOD AND NUTRITION RELATED HISTORY Diet experience: -Reports trying to eat more fruits and vegetables. -Pt report using natural pb and triscuits, notices tends to raise bg. -Pt reports meal times variable - depends on how bg is doing. Expresses may snack more vs eating big meals. -Reports they have switched to eating sourdough bread. Food intake: B: skips L: example not obtained this visit D: leftover biscuit (from [employer]) with natural peanut butter and milk (reports did not take humalog before eating) Snack: dark chocolate covered almonds OUTPATIENT MEDICATIONS 1) ATORVASTATIN CALCIUM 80MG TAB TAKE ONE [...] 10 DAYS TO MONITOR GLUCOSE READINGS 4) INSULIN,ASPART(EQV-NOVLG)10 0UN/ML FLXPEN INJECT 25 UNITS ACTIVE/PARKED UNDER THE SKIN THREE TIMES A DAY BEFORE MEALS ADMINISTER 10 MINUTES BEFORE FOOD DIRECTED. REFRIGERATE UN-OPENED PENS. DISCARD CARTRIDGE 28 DAYS AFTER OPENING.USES UP TO 100 UNITS THROUGHOUT THE DAY Indication: FOR DIABETES 5) INSULIN,GLARGINE 100 UNT/ML 3ML SOLOSTAR INJECT 15 UNITS ACTIVE/PARKED UNDER THE SKIN ONCE A DAY ADMINISTER [...] A MEAL Indication: FOR GASTROESOPHAGEAL REFLUX DISEASE *Pt reports taking correction doses of humalog/taking after meals. KNOWLEDGE BELIEFS AND ATTITUDES -Pt's reports some days of persistent highs and persistent lows - have not been able to identify any behaviors (food or physical activity) that are significantly different on these days. -Pt expresses that he has been told it is dangerous to take humalog without eating, but expresses that he knows his body, reports he used to have to take insulin after workout, even without eating, to keep bg in range. -Pt demonstrates awareness of sources of CHO - guesses biscuit would be ~25 g CHO (20 g per [employer] website, 23 g per [employer]). States that he used to write down everything that he ate, but it is not possible to do this forever. -Pt expresses some ambivalence about desire for insulin pump, expresses that counting CHOs is one more thing to do and his time in range is >80%. However, does express that insulin pump could help to prevent low bg. -Pt/ report trying to find a healthier fast CHO, express interest in 100% fruit juice. -Pt expresses confusion why insulin requirement has decreased, even though he has not lost wt. PHYSICAL ACTIVITY AND FUNCTION Physical activity: Walks 30 minutes in the am, 20+ minute wt training class ANTHROPOMETRIC MEASUREMENTS Ht: 70 in [177.8 cm] (10/12/2024 13:56) Wt: 196.6 lb [89.18 kg] (10/12/2024 13:56) Weight History/Significant changes: Per EMR: -gain of 5.2# April 2024-September 2024, not clinically significant Patient Weight History - Last Four 1. 196.6 lbs. / 89.2 kg. on OCTOBER 12, 2024@13:56:37 2. 195.0 lbs. / 88.5 kg. on OCTOBER 06, 2024@10:57:46 3. 194.9 lbs. / 88.4 kg. on SEP 05, 2024@13:38:36 4. 191.4 lbs. / 86.8 kg. on APR 18, 2024@11:02:08 BMI: 28.3 BIOCHEMICAL DATA/MEDICAL TESTS AND PROCEDURES HGA1C 7.2 H % 10/06/2024 11:34 HGA1C 6.7 H % 04/06/2024 11:43 HGA1C 6.8 H % 09/03/2023 13:49 HGA1C 6.8 H % 05/05/2023 11:39 HGA1C 6.5 H % 10/15/2022 10:41 TRIGLYCERIDE 101 mg/dL 04/06/2024 11:43 CHOLESTEROL 145 mg/dL 04/06/2024 11:43 HDL(New) 41 mg/dL 04/06/2024 11:43 CALCULATED LDL 84 mg/dL 04/06/2024 11:43 C-peptide 0.75 (up from 2019) 10/06/24 Self Monitoring Blood Glucose (SMBG): -- Dexcom Clarity -- Sky Beni Soto Date of : 1945 Generated at: October 25, 2024 2:35 PM CDT Reporting period: ThuOctober 12, 2024 - ThuOctober 25, 2024 -- Glucose Details Average glucose: 138 mg/dL GMI: 6.6% Standard deviation: 45 mg/dL Coefficient of Variation: 32.8% -- Time in Range Very High: 3% High: 12% In Range: 84% Low: 1% Very Low: <1% Target Range 70-180 mg/dL -- Sensor usage Days with data: Time active: 93% Avg. calibrations per day: 0.0 NUTRITION FOCUSED PHYSICAL FINDINGS -No GI concerns reported this visit. -Fat/muscle stores appear adequate. Pt does not meet criteria for malnutrition based on information obtained this visit. NUTRITION PRESCRIPTION Estimated energy needs: 2230 kcal (25 kcal/kg) Nutrition prescription specifics: consistent carbohydrate diet NUTRITION DIAGNOSIS NEW Altered nutrition related lab values R/T endocrine dysfunction (physiologic- metabolic etiology) AEB A1c 7.2%. NUTRITION INTERVENTIONS NUTRITION EDUCATION/COUNSELING Content-related nutrition education: -discussed rationale for CHO counting education prior to receiving insulin pump; discussed requirement to pass CHO counting test or to keep log of food/CHO intake for 1 week -reviewed how to check label for serving size and total CHO -reviewed how to find CHO content from foods at chain restaurants using either [employer] or restaurant website -reviewed how to use Cronometer (or [employer]) to obtain CHO content of foods without labels; also reviewed recipe building tool with cronometer -encouraged using fast CHO just as 4 oz of 100% fruit juice to treat hypoglycemia vs bread or whole grain crackers and pb; discussed the rationale behind this recommendation -discussed that administering humalog without food can increase risk of low bg; discussed that insulin pump may help to regulate bg -encouraged checking bg with fingerstick if symptoms do not match CGM reading; discussed possibility of contact/pressure low at night Education material: Carbohydrate Counting Barriers to learning: none identified Comprehension: good NUTRITION MONITORING AND EVALUATION Nutrition knowledge of individual client: -At next visit, pt will be able to score >70% on Carbohydrate Quiz (NEW GOAL IDENTIFIED) Return to clinic: 1 month /reed/ GLORY JAIM[address] Signed: 10/25/2024 14:49 KAMILAH ARRIETA [facility]
--- OUTSIDE RECORDS SUMMARY | 2024-11-21 06:00 | XMS_ITS ---
[place] MED NUTRITION IN[place] SUBSEQ [facility] Encounter Summary Created on: January 31, 2025 SKY SOTO : 1945 Sex: Male Author Name [facility] [place] [facility] [place] Address [address] [place] [address] Care Team Providers Care Artificial Intelligence Specialist Name Role Phone RAUL DEVIN Primary Care [...] PART A Jun 01, 2012 PART A [id number] SENA SOTO VID PATIENT MEDICARE (WNR) MEDICARE (M) PART B Jun 01, 2012 PART B [id number] ALFREDO,SENA VID PATIENT MEDICARE (WNR) MEDICARE (M) PART A Jun 01, 2012 PART A [id number] ALFREDO,SENA VID PATIENT MEDICARE (WNR) MEDICARE (M) PART B Jun 01, 2012 PART B [id number] SENA SOTO VID PATIENT MEDICARE (WNR) MEDICARE (M) PART A Jun 01, 1999 PART A [id number] SENA SOTO VID PATIENT Selected Encounter This section includes the information on record at [place] for the Encounter. Date/Time Encounter Type Encounter Description Reason Provider Source Nov 21, 2024 11:00 AM MED NUTRITION INDIV SUBSEQ PRIMARY CARE/MEDICINE ICD-10-CM E10.649 Type 1 diabetes mellitus with hypoglycemia without coma SAMANTHA ARRIETA [facility] Encounter Template Text not used by [place] Assessments - Encounter Diagnoses This section includes the primary and secondary diagnoses documented for the Encounter. Date/Time Primary/Secondary Diagnosis Diagnosis Name Provider Source Nov 21, 2024 11:36 AM PRIMARY Type 1 diabetes mellitus with hypoglycemia without coma IDJENSENKAMILAH [facility] Nov 21, 2024 11:36 AM SECONDARY Dietary counseling and surveillance [facility] Plan of Treatment: Future Appointments (+ 6 months) and Future Tests (+/- 45 days) The Plan of Treatment section includes future care activities for the [facility] [place] [facility]. This section includes future appointments and future orders which are active, pending or scheduled. Future Appointments This section includes appointments that were scheduled to occur 6 months from the date of the Encounter, up to a maximum of 20 appointments. The data comes from all [place] treatment facilities. Appointment Date/Time Appointment Type Appointme nt Facility Name Dec 06, 2024 10:40 AM AMBULATORY - MEDICINE [facility] Dec 08, 2024 12:15 PM AMBULATORY - MEDICINE [facility] Dec 08, 2024 12:30 PM AMBULATORY - NONE [facility] Dec 28, 2024 02:30 PM AMBULATORY - MEDICINE [facility] Jan 26, 2025 12:45 PM AMBULATORY - MEDICINE [facility] Feb 08, 2025 12:30 PM AMBULATORY - MEDICINE [facility] Feb 23, 2025 01:00 PM AMBULATORY - MEDICINE [facility] Mar 07, 2025 12:30 PM AMBULATORY - MEDICINE [facility] Apr 03, 2025 11:00 AM AMBULATORY - SURGERY [facility] Apr 25, 2025 03:00 PM AMBULATORY - SURGERY John VARGAS [facility] Social History: Smoking Status (Most current) and [...] Facil ity Apr 18, 2024 11:00 AM VA-TOBACCO NEVER U SED CIGARETTES [facility] Tobacco Use History This section includes a history of the smoking, or tobacco-related health factors, that were collected on or before the date of the Encounter. The data comes from the [place] facility where the Encounter took place. Date/Time Smoking Status/Tobacco Use Comment F acility Apr 18, 2024 11:00 AM VA-TOBACCO NEVER U SED OTHER TYPE [facility] Nov 09, 2020 11:00 AM VA-TOBACCO NEVER USED [facility] October 22, 2017 03:06 PM VA-TOBACCO NEVER USED [facility] Mar 06, 2017 01:35 PM LIFETIME NON-USER OF TOBACCO [facility] [...] this document. The data comes from all [facility]. Date Advance Directives Provider Source Nov 19, 2015 ADVANCE DIRECTIVE DISCUSSION JENNIFER LONDONO [facility] Encounter Notes: All associated encounter notes This section contains the clinical notes associated to the Encounter. Date/Time Encounter Note(s) Provider Source Nov 21, 2024 12:04 PM ADDENDUM: LOCAL TITLE: Addendum STANDARD TITLE: ADDENDUM DATE OF NOTE: NOV 21, 2024@12:04:46 ENTRY DATE: NOV 21, 2024@12:04:46 AUTHOR: KAMILAH ARRIETA COSIGNER: URGENCY: STATUS: COMPLETED -Alerting Pharmacist and Endocrinology Provider that patient scored 80% on Carbohydrate Quiz. From a nutrition knowledge standpoint, cleared for insulin pump. Pt remains somewhat ambivalent about desire for pump/willingness to track CHOs consistently as required when using pump. /reed/ GLORY JAIMES RD Signed: 11/21/2024 12:05 Receipt Acknowledged By: 11/21/2024 12:09 /es/ RADHA KEYES Clinical Agricultural Production Engineer 11/21/2024 14:06 /es/ FLOR Romero, MSN, RN Nurse Practitioner --- Original Document --- 11/21/24 NUTRITION FOLLOW UP STL: Modality of Care: Face to face Worn by : none Worn by employee: mask NUTRITION REASSESSMENT Diagnosis: Carb Counting Education for Insulin Pump Eligibility Time spent with : 36 minutes BMI: 28.3 Last appointment date: 10/25/24 CLIENT HISTORY Patient Medical History: 1) Kidney stone (SNOMED CT 47636482) 2) Mixed hyperlipidemia (SNOMED CT 829257226) 3) Permanent cardiac pacemaker (SNOMED CT 040746224075086) 4) Elevated Liver Function Tests 5) Benign [...] cardioverter defibrillator in situ Social history: Pt is . FOOD AND NUTRITION RELATED HISTORY Food intake: 24 hour recall not obtained this visit. OUTPATIENT MEDICATIONS 1) ATORVASTATIN CALCIUM 80MG TAB [...] A MEAL Indication: FOR GASTROESOPHAGEAL REFLUX DISEASE KNOWLEDGE BELIEFS AND ATTITUDES -Pt reports that he is still ambivalent about insulin pump. Expresses that he did not study hard for CHO quiz, but he is agreeable to taking it. -Pt reports that he previously worked with a program for morbidly obese people - provided nutrition education. Familiar with basics of carbs, protein, fat, calories. -Pt reports that portions on CHO counting handout provided at last visit are small. -Pt able to state resources for obtaining CHO information, such as eROI. PHYSICAL ACTIVITY AND FUNCTION Physical activity: Walking and weight training class per previous visit ANTHROPOMETRIC MEASUREMENTS Ht: 70 in [177.8 cm] [...] 11:43 CALCULATED LDL 84 mg/dL 04/06/2024 11:43 Self Monitoring Blood Glucose (SMBG): -- Dexcom Clarity -- Sky Soto Date of : 1945 Generated at: Nov 21, 2024 11:25 AM CDT Reporting period: ThuNov 08, 2024 - ThuNov 21, 2024 -- Glucose Details Average glucose: 133 mg/dL GMI: 6.5% Standard deviation: 40 mg/dL Coefficient of Variation: 30.1% -- Time in Range Very High: 0% High: 15% In Range: 83% Low: 2% Very Low: <1% Target Range 70-180 mg/dL -- Sensor usage Days with data: Time active: 95% Avg. calibrations per day: 0.0 Pt reports that he has noticed hypoglycemia after getting up from afternoon nap. NUTRITION FOCUSED PHYSICAL FINDINGS -No GI concerns reported to RD -Fat/muscle stores appear adequate. Pt does not meet criteria for malnutrition based on information obtained this visit. NUTRITION PRESCRIPTION Estimated energy needs: 2230 kcal (25 kcal/kg) Nutrition prescription specifics: consistent carbohydrate diet with accurate CHO counting NUTRITION DIAGNOSIS ACTIVE Altered nutrition related lab values R/T endocrine dysfunction (physiologic- metabolic etiology) AEB A1c 7.2%. NUTRITION INTERVENTIONS NUTRITION EDUCATION/COUNSELING Content-related nutrition education: -administered Carbohydrate Quiz; pt scored 80%; reviewed missed questions to help address knowledge gaps -reviewed CGM data, noted pattern of hypoglycemia in late afternoon; encouraged patient to eat after nap to help prevent hypoglycemia -discussed that portion sizes in CHO counting education are not meant to dictate how much food is consumed but to show amount of food that contains 15 g of CHO Education material: Carbohydrate Quiz (in office) Barriers to learning: none identified Comprehension: good COORDINATION OF NUTRITION CARE -Alerting Pharmacist and Endocrinology Provider that patient scored 80% on Carbohydrate Quiz. From a nutrition knowledge standpoint, cleared for insulin pump. Pt remains somewhat ambivalent about desire for pump/willingness to track CHOs consistently as required when using pump. NUTRITION MONITORING AND EVALUATION Nutrition knowledge of individual client: -At next visit, pt will be able to score >70% on Carbohydrate Quiz (GOAL ACHIEVED, DISCONTINUE) HgbA1c: -At next check, pt's A1c will remain <8% (NEW GOAL IDENTIFIED) Return to clinic: PRN /reed/ KAMILAH ARRIETA RD, LD Signed: 11/21/2024 12:04 KAMILAH ARRIETA [facility] Nov 21, 2024 10:57 AM NUTRITION DIETETICS NOTE: LOCAL TITLE: NUTRITION FOLLOW UP STL STANDARD TITLE: NUTRITION DIETETICS NOTE DATE OF NOTE: NOV 21, 2024@10:57 ENTRY DATE: NOV 21, 2024@10:58:02 AUTHOR: KAMILAH ARRIETA EXP COSIGNER: URGENCY: STATUS: COMPLETED NUTRITION FOLLOW UP STL Has ADDENDA Modality of Care: Face to face Worn by [place]: none Worn by employee: mask NUTRITION REASSESSMENT Diagnosis: Carb Counting Education for Insulin Pump Eligibility Time spent with [place]: 36 minutes BMI: 28.3 Last appointment date: 10/25/24 CLIENT HISTORY Patient Medical History: 1) Kidney stone (SNOMED CT 79303763) 2) Mixed hyperlipidemia (SNOMED CT 643497733) 3) Permanent cardiac pacemaker (SNOMED CT [id number]) 4) Elevated Liver Function Tests 5) Benign [...] cardioverter defibrillator in situ Social history: Pt is . FOOD AND NUTRITION RELATED HISTORY Food intake: 24 hour recall not obtained this visit. OUTPATIENT MEDICATIONS 1) ATORVASTATIN CALCIUM 80MG TAB [...] A MEAL Indication: FOR GASTROESOPHAGEAL REFLUX DISEASE KNOWLEDGE BELIEFS AND ATTITUDES -Pt reports that he is still ambivalent about insulin pump. Expresses that he did not study hard for CHO quiz, but he is agreeable to taking it. -Pt reports that he previously worked with a program for morbidly obese people - provided nutrition education. Familiar with basics of carbs, protein, fat, calories. -Pt reports that portions on CHO counting handout provided at last visit are small. -Pt able to state resources for obtaining CHO information, such as Calorie Tae. PHYSICAL ACTIVITY AND FUNCTION Physical activity: Walking and weight training class per previous visit ANTHROPOMETRIC MEASUREMENTS Ht: 70 in [177.8 cm] [...] 11:43 CALCULATED LDL 84 mg/dL 04/06/2024 11:43 Self Monitoring Blood Glucose (SMBG): -- Dexcom Clarity -- Sky Soto Date of : 1945 Generated at: Nov 21, 2024 11:25 AM CDT Reporting period: ThuNov 08, 2024 - ThuNov 21, 2024 -- Glucose Details Average glucose: 133 mg/dL GMI: 6.5% Standard deviation: 40 mg/dL Coefficient of Variation: 30.1% -- Time in Range Very High: 0% High: 15% In Range: 83% Low: 2% Very Low: <1% Target Range 70-180 mg/dL -- Sensor usage Days with data: Time active: 95% Avg. calibrations per day: 0.0 Pt reports that he has noticed hypoglycemia after getting up from afternoon nap. NUTRITION FOCUSED PHYSICAL FINDINGS -No GI concerns reported to RD -Fat/muscle stores appear adequate. Pt does not meet criteria for malnutrition based on information obtained this visit. NUTRITION PRESCRIPTION Estimated energy needs: 2230 kcal (25 kcal/kg) Nutrition prescription specifics: consistent carbohydrate diet with accurate CHO counting NUTRITION DIAGNOSIS ACTIVE Altered nutrition related lab values R/T endocrine dysfunction (physiologic- metabolic etiology) AEB A1c 7.2%. NUTRITION INTERVENTIONS NUTRITION EDUCATION/COUNSELING Content-related nutrition education: -administered Carbohydrate Quiz; pt scored 80%; reviewed missed questions to help address knowledge gaps -reviewed CGM data, noted pattern of hypoglycemia in late afternoon; encouraged patient to eat after nap to help prevent hypoglycemia -discussed that portion sizes in CHO counting education are not meant to dictate how much food is consumed but to show amount of food that contains 15 g of CHO Education material: Carbohydrate Quiz (in office) Barriers to learning: none identified Comprehension: good COORDINATION OF NUTRITION CARE -Alerting Pharmacist and Endocrinology Provider that patient scored 80% on Carbohydrate Quiz. From a nutrition knowledge standpoint, cleared for insulin pump. Pt remains somewhat ambivalent about desire for pump/willingness to track CHOs consistently as required when using pump. NUTRITION MONITORING AND EVALUATION Nutrition knowledge of individual client: -At next visit, pt will be able to score >70% on Carbohydrate Quiz (GOAL ACHIEVED, DISCONTINUE) HgbA1c: -At next check, pt's A1c will remain <8% (NEW GOAL IDENTIFIED) Return to clinic: PRN /reed/ GLORY JAIMES RD Signed: 11/21/2024 12:04 11/21/2024 ADDENDUM STATUS: COMPLETED -Alerting Pharmacist and Endocrinology Provider that patient scored 80% on Carbohydrate Quiz. From a nutrition knowledge standpoint, cleared for insulin pump. Pt remains somewhat ambivalent about desire for pump/willingness to track CHOs consistently as required when using pump. /reed/ GLORY JAIMES RD Signed: 11/21/2024 12:05 Receipt Acknowledged By: 11/21/2024 12:09 /reed/ RADHA KEYES Clinical Agricultural Production Engineer * AWAITING SIGNATURE * RADHA FLOYD ABIGAIL L [facility]
--- OUTSIDE RECORDS SUMMARY | 2024-11-24 04:17 | XMS_ITS ---
Author Name [facility] Address [address] [place] [address] Care Team Providers Care Wearing Apparel Shaker Name Role Phone RAUL DEVIN Primary Care [...] PART A Jun 01, 2012 PART A [id number] PILOMARYSEMAKENNA,SENA VID PATIENT MEDICARE (WNR) MEDICARE (M) PART B Jun 01, 2012 PART B [id number] PILOMARYSEEN,DA VID PATIENT MEDICARE (WNR) MEDICARE (M) PART A Jun 01, 2012 PART A [id number] PILOMARYSEMAKENNA,DA VID PATIENT MEDICARE (WNR) MEDICARE (M) PART B Jun 01, 2012 PART B [id number] [phone] SENA FUENTES PATIENT MEDICARE (WNR) MEDICARE (M) PART A Jun 01, 1999 PART A [id number] SENA FUENTES PATIENT Selected Encounter This section includes the information on record at [place] for the Encounter. 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 Date/Time Primary/Secondary Diagnosis Diagnosis Name Provider Source Nov 29, 2024 07:36 AM PRIMARY Unspecified systolic (congestive) heart failure KAIN POSADA [facility] Nov 29, 2024 07:36 AM SECONDARY Presence of automatic (implantable) cardiac defibrillator KAIN POSADA [facility] Plan of Treatment: Future Appointments (+ 6 months) and Future Tests (+/- 45 days) The Plan of Treatment section includes future care activities for the patient from all [facility]. This section includes future appointments and future orders which are active, pending or scheduled. Future Appointments This section includes appointments that were scheduled to occur 6 months from the date of the Encounter, up to a maximum of 20 appointments. The data comes from all [place] treatment facilities. Appointment Date/Time Appointment Type Appointme nt Facility Name Dec 06, 2024 10:40 AM AMBULATORY - MEDICINE [facility] Dec 08, 2024 12:15 PM AMBULATORY - MEDICINE [facility] Dec 08, 2024 12:30 PM AMBULATORY - NONE [facility] Dec 28, 2024 02:30 PM AMBULATORY - MEDICINE [facility] Jan 26, 2025 12:45 PM AMBULATORY - MEDICINE [facility] Feb 08, 2025 12:30 PM AMBULATORY - MEDICINE [facility] Feb 23, 2025 01:00 PM AMBULATORY - MEDICINE [facility] Mar 07, 2025 12:30 PM AMBULATORY - MEDICINE [facility] Apr 03, 2025 11:00 AM AMBULATORY - SURGERY . [facility] Apr 25, 2025 03:00 PM AMBULATORY - SURGERY [facility] Social History: Smoking Status (Most current) and Tobacco Use (All prior to encounter date) This section includes the most current, and the historical, smoking and tobacco- related health factors from the [place] facility where the Encounter took place. Current Smoking Status This section includes the most current smoking, or tobacco-related health factor, from the [place] facility where the Encounter took place. Date/Time Current Smoking Status Comment Lux ity October 15, 2023 06:15 AM ORYX ADMIT TOBACCO SCREEN NO [facility] Tobacco Use History This section includes a history of the smoking, or tobacco-related health factors, that were collected on or before the date of the Encounter. The data comes from the [place] facility where the Encounter took place. Date/Time Smoking Status/Tobacco Use Comment F actoya October 14, 2022 01:17 PM VA-TOBACCO NEVER USED [facility] Mar 13, 2022 05:25 PM ORYX ADMIT TOBACCO SCREEN NO [facility] Apr 20, 2019 11:02 AM VA-TOBACCO FORMER USER [facility] Apr 20, 2019 11:02 AM HI-TOBACCO QUIT 15 YRS OR MORE [facility] Nov 19, 2015 09:23 AM LIFETIME NON-USER OF TOBACCO [facility] May 02, 2014 08:44 AM LIFETIME NON-USER OF TOBACCO [facility] Jun 15, 2013 04:36 PM LIFETIME NON-USER OF TOBACCO [facility] Jun 17, 2012 09:31 AM LIFETIME NON-USER OF TOBACCO [facility] Advance Directives: All historical and current Section Date Range: From patient's date of to the date document was created. This section includes ALL of a patient's completed or amended [place] Advance and Rescinded Directives. The entries below indicate that a directive exists for the patient, but an actual copy is not included with this document. The data comes from all [place] facilities. Date Advance Directives Provider Source Nov 19, 2015 ADVANCE DIRECTIVE DISCUSSION JENNIFER LONDONO [facility] Encounter Notes: All associated encounter notes This section contains the clinical notes associated to the Encounter. Date/Time Encounter Note(s) Provider Source Nov 28, 2024 01:04 PM ADDENDUM: LOCAL TITLE: Addendum STANDARD TITLE: ADDENDUM DATE OF NOTE: NOV 28, 2024@13:04:30 ENTRY DATE: NOV 28, 2024@13:04:31 AUTHOR: CHARLINE TOMAS EXP COSIGNER: URGENCY: STATUS: COMPLETED Device Interrogation reviewed. Battery is adequate, lead function stable. Arrhythmias are as documented. Will continue device follow up through remote transmissions and/or routine device clinic appointments. All clinically important information has been communicated to the patient by myself, device clinic, the patient's credit analysis manager, or the patient's PCP. I do not see the most recent surveillance uploaded, but agree to lowering the LRL to 80. Can keep him at this for a few weeks to see how he is feeling. If he is feeling ok, can further decrease LRL to 70 bpm to help with battery life. Would also add rate reponse given >53% AP with a LRL of 50 bpm in a 2023 interrogation. /reed/ CHARLINE TOMAS MD CLINICAL CARDIAC EMPLOYEE HEALTH NURSE Signed: 11/28/2024 13:07 Receipt Acknowledged By: 01/16/2025 14:49 /reed/ Robyn Posada,RN,BSN Registered Nurse --- Original Document --- 11/24/24 CARDIOLOGY DEVICE SURVEILLANCE NOTE STL: Vet did send in a manual download 11/22 DISCUSSED. HE HAD AN EPISODE on 11/16. This includes 10/18/2024 - 11/22/2024 at time of interrogation remotely(12:55pm) This was reveiwed and charted and discussed with Dr. Tomas. SEE [employer] FOR FULL PDF. [employer] ICD REMOTE INTERROGATION EP Following Device: DR. CHARLINE TOMAS Pt's Primary Groundman: DIEGO CASE Reason for Implant: CHF ACTIVE BIV ICD: MED. [id number] Claria MRI Quad FEEDER SWITCHBOARD OPERATOR-D SN:[id number] DOI:03/13/2022 RA LEAD: MED. 5076 CapSureFix Novus MRI SureScan SN:[id number] DOI:03/13/2022 RV LEAD: MED. 6935M Sprint Quattro Secure S SN:[id number] DOI:03/13/2022 LV LEAD: MED. 4598 Attain Performa S MRI SureScan SN:[id number] DOI:03/13/2022 ABANDONED RA LEAD: MED. 5086MRI CapSureFix MRI SureScan SN:[id number] DOI:12/10/2012 RV LEAD: MED. 5086MRI CapSureFix MRI SureScan SN:[id number] DOI:12/10/2012 BATTERY: 4.7 YEARS MODE: DDD RATE: 90/130 RATE WAS INCREASED AT THE TIME OF HIS CABG ALL PAULINE MEASUREMENTS WNL AF BURDEN: NONE VENTRICULAR EVENTS: NONE This remote did include dates of the reported episode VT MONITOR ZONE is programmed (150bpm-188bpm. (will citrus picker events at rates between >/= 150-188bpm if they last at least 36 beats. >/=4 beats long between 150-188bpm (up to 36 beats) falls into NSVT bin >/= to 188bpm- fall into treated zones. % PACING AP: 98.2% SUPERVISOR COAL HANDLING: 99.5% EFFECTIVE: 90% THORACIC IMPEDENCE: BELOW THRESHOLD 10/18/2024 LAST REMOTE: Reveiwed with Dr Tomas. Vet can be be decreased rate to 80ppm can place rate DDDR remote also notes that LV Th has not been able to done for last 7 days- will need to check LV TH Remote also suggests to obtain a new template Dr. Tomas does not feel that higher LRL would contriv=bute to the e He can then be decreased to 70ppm (can also evauare the rate response at that time.) Vet does not have any appts that land on a after that, So may need to make an extra trip. Dr Tomas, How long of a timeframe between turning down to 70ppm from 80ppm? and then final will be 70ppm (or does he need to decrease to 60ppm??? Please advise. We reviewed upcoming appts.(He doesn't want to make an extra trip if he does not have to.) We will do this on DECEMBER 08 (he has endocrine appt that day.) /reed/ Robyn Posada,RN,BSN Registered Nurse Signed: 11/25/2024 08:57 Receipt Acknowledged By: 11/28/2024 13:03 /reed/ CHARLINE TOMAS MD CLINICAL CARDIAC EMPLOYEE HEALTH NURSE 11/28/2024 12:48 /reed/ Diego Case PA-C Cardiology Physician Didactic Instructor 11/25/2024 ADDENDUM STATUS: COMPLETED Clarification of sentance below Dr. Tomas does not feel that higher LRL would contriv=bute to the e ' Should read: Dr. Tomas does not feel that higher LRL would contribute to the episode in question. /reed/ Robyn Posada,RN,BSN Registered Nurse Signed: 11/25/2024 08:59 CHARLINE TOMAS [facility] Nov 24, 2024 09:17 AM INTERVENTIONAL CARDIOLOGY NOTE: LOCAL TITLE: CARDIOLOGY DEVICE SURVEILLANCE NOTE STL STANDARD TITLE: INTERVENTIONAL CARDIOLOGY NOTE DATE OF NOTE: NOV 24, 2024@09:17 ENTRY DATE: NOV 24, 2024@09:18:03 AUTHOR: ROBYN POSADA EXP COSIGNER: URGENCY: STATUS: COMPLETED CARDIOLOGY DEVICE SURVEILLANCE NOTE STL Has ADDENDA Vet did send in a manual download 11/22 DISCUSSED. HE HAD AN EPISODE on 11/16. This includes 10/18/2024 - 11/22/2024 at time of interrogation remotely(12:55pm) This was reveiwed and charted and discussed with Dr. Tomas. SEE [employer] FOR FULL PDF. [employer] ICD REMOTE INTERROGATION EP Following Device: DR. CHARLINE TOMAS Pt's Primary Groundman: DIEGO CASE Reason for Implant: CHF ACTIVE BIV ICD: MED. [id number] Claria MRI Quad FEEDER SWITCHBOARD OPERATOR-D SN:[id number] DOI:03/13/2022 RA LEAD: MED. 5076 CapSureFix Novus MRI SureScan SN:[id number] DOI:03/13/2022 RV LEAD: MED. 6935M [employer] Quattro Secure S SN:[id number] DOI:03/13/2022 LV LEAD: MED. 4598 Attain Performa S MRI SureScan SN:[id number] DOI:03/13/2022 ABANDONED RA LEAD: MED. 5086MRI CapSureFix MRI SureScan SN:[id number] DOI:12/10/2012 RV LEAD: MED. 5086MRI CapSureFix MRI SureScan SN:[id number] DOI:12/10/2012 BATTERY: 4.7 YEARS MODE: DDD RATE: 90/130 RATE WAS INCREASED AT THE TIME OF HIS CABG ALL PAULINE MEASUREMENTS WNL AF BURDEN: NONE VENTRICULAR EVENTS: NONE This remote did include dates of the reported episode VT MONITOR ZONE is programmed (150bpm-188bpm. (will citrus picker events at rates between >/= 150-188bpm if they last at least 36 beats. >/=4 beats long between 150-188bpm (up to 36 beats) falls into NSVT bin >/= to 188bpm- fall into treated zones. % PACING AP: 98.2% SUPERVISOR COAL HANDLING: 99.5% EFFECTIVE: 90% THORACIC IMPEDENCE: BELOW THRESHOLD 10/18/2024 LAST REMOTE: Reveiwed with Dr Tomas. Vet can be be decreased rate to [address]ppm can place rate DDDR remote also notes that LV Th has not been able to done for last 7 days- will need to check LV TH Remote also suggests to obtain a new template Dr. Tomas does not feel that higher LRL would contriv=bute to the e He can then be decreased to 70ppm (can also evauare the rate response at that time.) Vet does not have any appts that land on a THURS after that, So may need to make an extra trip. Dr Tomas, How long of a timeframe between turning down to 70ppm from 80ppm? and then final will be 70ppm (or does he need to decrease to 60ppm??? Please advise. We reviewed upcoming appts.(He doesn't want to make an extra trip if he does not have to.) We will do this on DECEMBER 08 (he has endocrine appt that day.) /reed/ Robyn Posada,RN,BSN Registered Nurse Signed: 11/25/2024 08:57 Receipt Acknowledged By: 11/28/2024 13:03 /reed/ CHARLINE TOMAS MD CLINICAL CARDIAC EMPLOYEE HEALTH NURSE 11/28/2024 12:48 /reed/ Diego Case PA-C Cardiology Physician Didactic Instructor 11/25/2024 ADDENDUM STATUS: COMPLETED Clarification of sentance below Dr. Tomas does not feel that higher LRL would contriv=bute to the e ' Should read: Dr. Tomas does not feel that higher LRL would contribute to the episode in question. /reed/ Robyn PosadaRN,BSN Registered Nurse Signed: 11/25/2024 08:59 11/28/2024 ADDENDUM STATUS: COMPLETED Device Interrogation reviewed. Battery is adequate, lead function stable. Arrhythmias are as documented. Will continue device follow up through remote transmissions and/or routine device clinic appointments. All clinically important information has been communicated to the patient by myself, device clinic, the patient's credit analysis manager, or the patient's PCP. I do not see the most recent surveillance uploaded, but agree to lowering the LRL to 80. Can keep him at this for a few weeks to see how he is feeling. If he is feeling ok, can further decrease LRL to 70 bpm to help with battery life. Would also add rate reponse given >53% AP with a LRL of 50 bpm in a 2023 interrogation. /reed/ CHARLINE TOMAS MD CLINICAL CARDIAC EMPLOYEE HEALTH NURSE Signed: 11/28/2024 13:07 Receipt Acknowledged By: * AWAITING SIGNATURE * ROBYN POSADA,ANGELA Zelaya [facility]
--- OUTSIDE RECORDS SUMMARY | 2024-12-06 05:40 | XMS_ITS ---
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 Name Role Phone RAUL, DEVIN Primary Care [...] PART A Jun 01, 2012 PART A [id number] PILOMARYSEMAKENNA,SENA VID PATIENT MEDICARE (WNR) MEDICARE (M) PART B Jun 01, 2012 PART B [id number] PILOMARYSEEN,DA VID PATIENT MEDICARE (WNR) MEDICARE (M) PART A Jun 01, 2012 PART A [id number] [phone] PILOMARYSEEN,DA VID PATIENT MEDICARE (WNR) MEDICARE (M) PART B Jun 01, 2012 PART B [id number] [phone] GOCKEN,DA VID PATIENT MEDICARE (WNR) MEDICARE (M) PART A Jun 01, 1999 PART A [id number] SENA FUENTES PATIENT Selected Encounter This section includes the information on record at [place] for the Encounter. Date/Time Encounter Type Encounter Description Reason Provider Source Dec 06, 2024 10:40 AM OFFICE O/P EST MOD 30 MIN RENAL/NEPHROL(EXCE PT DIALYSIS) ICD-10-CM N18.2 Chronic kidney disease, stage 2 (mild) ASHUTOSH SIMS [facility] Encounter Template Text not used by [place] Assessments - Encounter Diagnoses This section includes the primary and secondary diagnoses documented for the Encounter. 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 ASHUTOSH SIMS BANSAL Shweta [facility] Plan of Treatment: Future Appointments (+ [...] Appointment Type Appointme nt Facility Name Dec 08, 2024 12:15 PM AMBULATORY - MEDICINE [facility] Dec 08, 2024 12:30 PM AMBULATORY - NONE [facility] Dec 28, 2024 02:30 PM AMBULATORY - MEDICINE [facility] Jan 26, 2025 12:45 PM AMBULATORY - MEDICINE [facility] Feb 08, 2025 12:30 PM AMBULATORY - MEDICINE [facility] Feb 23, 2025 01:00 PM AMBULATORY - MEDICINE [facility] Mar 07, 2025 12:30 PM AMBULATORY - MEDICINE [facility] Apr 03, 2025 11:00 AM AMBULATORY - SURGERY [facility] Apr 25, 2025 03:00 PM AMBULATORY - SURGERY [facility] Lab Results: +/- 30 days of the encounter This section includes the Chemistry and Hematology Lab Results on record with [place] for the patient. Radiology Reports and Pathology Reports are provided separately, in subsequent sections. Lab Results This section contains the Chemistry/Hematology Results that were resulted 30 days before or 30 daysafter the date of the Encounter. Date/Time Source Result Type Result - Unit Interpretation Reference Range Specimen Type Comment Dec 28, 2024 02:38 PM [facility] MICRAL/CREAT PROFILE (STL) URINE Specimen Typ e: URINE No comment entered. Ordering Provider: BUBBA SIMS Report Released Date/Time: Dec 06, 2024 10:17 AM Reporting Lab: [place] [address] [facility] [id number] Performing Lab: [address] [id number] URINE ALBUMIN (PB-STL) 33.2 mg/L uACR (STL) 34 mg/g H 0-29 CREATININE URINE/OTHERS 97.4 mg/dL 63-16 6 Vital Signs: All taken on the encounter date This section contains inpatient and outpatient Vital Signs collected on the date of the Encounter. Date/Time Temperature Pulse Blood Pressure Respiratory Rate SP02 Pain Height Weight Body Mass Index Source Dec 06, 2024 09:45 AM 97.4 F 89 /min 121/77 mm[Hg] 16 /min 95 % 0 191.9 lb 28 [facility] Social History: Smoking Status (Most [...] 06:15 AM ORYX ADMIT TOBACCO SCREEN NO [facility] Tobacco Use History This section includes a history of the smoking, or tobacco-related health factors, that were collected on or before the date of the Encounter. The data comes from the [place] facility where the Encounter took place. Date/Time Smoking Status/Tobacco Use Comment F acility October 14, 2022 01:17 PM VA-TOBACCO NEVER USED [facility] Mar 13, 2022 05:25 PM ORYX ADMIT TOBACCO SCREEN NO [facility] Apr 20, 2019 11:02 AM VA-TOBACCO FORMER USER [facility] Apr 20, 2019 11:02 AM [place]-TOBACCO QUIT 15 YRS OR MORE [facility] Nov 19, 2015 09:23 AM LIFETIME NON-USER OF TOBACCO [facility] May 02, 2014 08:44 AM LIFETIME NON-USER OF TOBACCO [facility] Jun 15, 2013 04:36 PM LIFETIME NON-USER OF TOBACCO [facility] Jun 17, 2012 09:31 AM LIFETIME NON-USER OF TOBACCO [facility] Advance Directives: All historical and current Section Date Range: From patient's date of to the date document was created. This section includes ALL of a patient's completed or amended [place] Advance and Rescinded Directives. The entries below indicate that a directive exists for the patient, but an actual copy is not included with this document. The data comes from all [facility]. Date Advance Directives Provider Source Nov 19, 2015 ADVANCE DIRECTIVE DISCUSSION JENNIFER LONDONO [facility] Radiology Reports: +/- 30 days of [...] the Encounter. The data comes from all [place] treatment facilities. Date/Time Radiology Report Provider Source Dec 28, 2024 02:11 PM US RENAL COMPLETE: SKY FUENTES [id number] -[id number] M Ex Date: DEC 28, 2024@14:11 Req Phys: BUBBA SIMS Pat Loc: [facility] [place] (Req'g Loc) Img Loc: [facility]ULTRASOUND [facility] Service: Unknown [facility], [address] [place] [address] (Case [id number] COMPLETE) US RENAL COMPLETE (US Detailed) CPT:71985 Reason for Study: f/u rt kidney cyst and kidney stone Clinical History: Pt has history of nephrolithiasis Report Status: Verified Date Reported: DEC 28, 2024 Date Verified: DEC 28, 2024 Retail Field Representative E-Sig:/ES/ROSA ISELA DAVIS Report: ACCESSION NUMBERS: [id number] US RENAL COMPLETE HISTORY: f/u rt kidney cyst and kidney stone COMPARISON: Renal ultrasound dated 05/18/[address] abdomen and pelvis without contrast dated 04/01/2024. FINDINGS: The right kidney measures 12.9 x 5.9 x 6.1 cm with normal cortical echogenicity and thickness (1.9 cm). The renal volume is 243 mL. Redemonstration of a large exophytic simple cyst arising from the right interpolar renal cortex measuring 9.1 x 7.0 x 9.6 cm (previously measuring up to 11.8 cm on renal ultrasound dated 05/18/2023). No mass, echogenic calculi or hydronephrosis. The left kidney measures 11.1 x 6.4 x 5.5 cm with normal cortical echogenicity and thickness (2.2 cm). The renal volume is 204 mL. No cyst, mass, echogenic calculi or hydronephrosis. Urinary bladder grossly unremarkable on the images provided. Ureteral jets were noted. Impression: No hydronephrosis or nephrolithiasis bilaterally. Simple right renal cyst measuring up to 9.6 cm, slightly decreased in size from prior exam. Dictated by Luis Chapman M.D. (residential service technician). IRosa Isela, have reviewed the images and report and concur with these findings. Primary Interpreting Staff: ROSA ISELA DAVIS, Diagnostic Radiologist (Retail Field Representative) Primary Interpreting Resident: LUIS CHAPMAN, Resident Physician /[facility]A I[facility]LA [facility] Encounter Notes: All associated encounter notes This section contains the clinical notes associated to the Encounter. Date/Time Encounter Note(s) Provider Source Dec 06, 2024 09:55 AM NEPHROLOGY OUTPATIENT NOTE: LOCAL TITLE: NEPHROLOGY OUTPATIENT FOLLOW UP [facility] STANDARD TITLE: NEPHROLOGY OUTPATIENT NOTE DATE OF NOTE: DEC 06, 2024@09:55 ENTRY DATE: DEC 06, 2024@09:55:36 AUTHOR: BUBBA SIMS COSIGNER: URGENCY: STATUS: COMPLETED 79yM with pmh of IDDM type 1,HTN,CAD with multiple interventions s/p PCI stents,pacemaker,PVD,Kidney stone,HLD following for ckd and hyperkalemia. Denied any new c/o. Pt when seen last November after his CABG in September his bp was low. He has been doing better with his bp as he is in 110-120 systolic. He tries to challenge himself sometimes to walk 4 miles/hr once when his bp was low after. No lightheadednes/cough/leg swelling. He felt rattling/wheezing sound when he was lying down and last night was fine. Urinating well with no issues. Denied blood in urine/flank pain/burning urination. No nsaids use and has been taking tylenol. No recent kidney stone flare . Pt is physically active and is walking 2-3 miles/day. He is in strength training program for 20 mins. Pt walked 8 flights of stairs and he did not have exertional sob. Medications reviewed with patient and discrepancies reviewed [...] STOMACH. SWALLOW WHOLE. DO NOT CRUSH OR CHEW.--not taking as bp was low Indication: FOR CHEST PAIN 7) METOPROLOL SUCCINATE [...] 4 ACTIVE OUNCES OF WATER PRIOR TO DRINKING)--not taking Indication: FOR PREVENTION OF KIDNEY STONES 10) [...] A MEAL Indication: FOR GASTROESOPHAGEAL REFLUX DISEASE Exam: Vitals: BP: 121/77 P: 89 R: 16 WT: 191.9 T: 97.4 SHEENT:PERRLA,No JVD/icterus/conj pallor CHEST:lungs clear B/L CVS:S1S2+ NO MRG ABD: Soft non-tender and no organomegaly EXTREMITIES: trace LE Edema NEURO:non focal SKIN: no acute rash PSYCHIATRY: appropriate affect Labs: HGB 15.5 g/dL 02/08/2024 08:28 PLT 142 L 10*3/uL 02/08/2024 08:28 WBC 5.9 10*3/uL (02/08/24 08:28) SODIUM 137 mEq/L 10/06/2024 11:34 POTASSIUM 4.6 [...] 11:34 EGFR (CKD-EPI 2020) 78.5 10/06/2024 11:34 PHOSPHOROUS 3.5 mg/dL 05/05/2023 11:39 HGA1C 7.2 H % 10/06/2024 11:34 CREATuF: 229.9 (04/06/24 11:49) M/CREAT: 90 (04/06/24 11:49) MICRAL: 206.9 (04/06/24 11:49) Collection time: Dec 24, 2023@08:15 Test Name Result Units Range --------- ------ ----- ----- VOLUME 2.66 L/day Ref: >=2.00 MAGNESIUM URINE/OTHER 123 mg/day Ref: >=60.0 SODIUM URINE/OTHERS 145 mEq/day Ref: <=200 POTASSIUM URINE/OTHERS 53 mEq/day 19 - 135 URIC ACID URINE/OTHERS 513 mg/day Ref: <=700 SULFATE,U-PB STL 17 mmol/day Ref: <=30 CREATININE URINE/OTHERS 1231 mg/day 800 - 2000 CALCIUM URINE/OTHERS 116 mg/day Ref: <=250.0 PHOSPHOROUS URINE/OTHERS 1224 H mg/day Ref: <=1100 PH(SO) 5.1 L 5.5 - 7.0 +CALCIUM OXALATE 0.81 Ref: <=2.00 +BRUSHITE 0.10 Ref: <=2.00 +SODIUM-URATE 0.34 Ref: <=2.00 CITRIC ACID 242 L mg/day Ref: >=320 OXALATE 45 H mg/day Ref: <=45 .INTERP comment Comments: THE PATIENT HAS: Hyperoxaluria Hypocitraturia Low urinary pH SUPERSATURATION INDEX WITH RESPECT TO: Uric acid Impression for US RENAL COMPLETE, 05/18/23 1. Nonobstructing calculus within the mid pole of the left kidney measuring 1 cm. 2. Simple 11.8 cm right renal cyst. 3. The bladder wall appears trabeculated which may be related to chronic outlet obstruction. A/P #Ckd stage G2 A2 due to Dm,Htn and renovascular disease. -Renal function improved -Strict control of Dm to to avoid renal complications. -Avoid nsaids/contrast/nephrotoxin s, d/c Naproxen -Encouraged oral hydration -Pt has proteinuria, uacr improving, pt not able to tolerate RAAS blockade with hypotension and f/u repeat protein excretion in urine -Not candidate for SGLT2I as he has type 1 DM -Discussed renal u/s results re kidney stone and he has CT ordered for f/u -Hyperkalemia is resolved and continue low k diet -Pt is started on Flomax for BPH and LUTS improved -F/u micralb/creat #HTN/Volume with HFrEF: Bp low and pt is not taking meds Continue metoprolol as tolerated with bp as he has occasional low bp readings Pt has trace LE edema and advised to restrict high sodium foods #CAD s/p CABG with history of cardiac arrest s/p AICD-pt has intermittent sob and has no arrythmias per recent EP device review. He has no sob/lung crackes today and declined CXR. Advised to seek medical attention if he experience any issues with recurrent sob. #Kidney Stone: no flare for >7 years and he has microscopic hematuria Pt had renal u/s has 1 cm left kidney stone non- obstructing in 05/23. Pt saw urology in 07/2023 and opted surveillance Encouraged oral hydration to have 2 liter uop/day. Discussed low animal protein and low salt diet, reiterated today 24 hr urine reviewed and pt is on oracit for low citrate and ph, continue low oxalate diet and renal u/s ordered RTC 12 months /es/ BUBBA SIMS MD STAFF PHYSICIAN,NEPHROLOGY Signed: 12/06/2024 17:38 BUBBA SIMS [facility]
--- OUTSIDE RECORDS SUMMARY | 2024-12-08 07:30 | XMS_ITS | Encounter Summary ---
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 This section includes future appointments and future orders which are active, pending or scheduled. Future Appointments This section includes appointments that were scheduled to occur 6 months from the date of the Encounter, up to a maximum of 20 appointments. The data comes from all [place] treatment facilities. Appointment Date/Time Appointment Type Appointme nt Facility Name Dec 28, 2024 02:30 PM AMBULATORY - MEDICINE [facility] Jan 26, 2025 12:45 PM AMBULATORY - MEDICINE [facility] Feb 08, 2025 12:30 PM AMBULATORY - MEDICINE [facility] Feb 23, 2025 01:00 PM AMBULATORY - MEDICINE [facility] Mar 07, 2025 12:30 PM AMBULATORY - MEDICINE [facility] Apr 03, 2025 11:00 AM AMBULATORY - SURGERY [facility] Apr 25, 2025 03:00 PM AMBULATORY - SURGERY [facility] Lab Results: +/- 30 days of the encounter This section includes the Chemistry and Hematology Lab Results on record with ME for the patient. Radiology Reports and Pathology Reports are provided separately, in subsequent sections. Lab Results This section contains the Chemistry/Hematology Results that were resulted 30 days before or 30 daysafter the date of the Encounter. Date/Time Source Result Type Result - Unit Interpretation Reference Range Specimen Type Comment Dec 28, 2024 02:38 PM [facility] MICRAL/CREAT PROFILE (STL) URINE Specimen Typ e: URINE No comment entered. Ordering Provider: BUBBA SIMS Report Released Date/Time: Dec 06, 2024 10:17 AM Reporting Lab: [facility] [address] [facility] [id number] Performing Lab: [facility] [address] [facility] [id number] URINE ALBUMIN (PB-STL) 33.2 mg/L uACR (STL) 34 mg/g H 0-29 CREATININE URINE/OTHERS 97.4 mg/dL 63-16 6 Vital Signs: All taken on the encounter date This section contains inpatient and outpatient Vital Signs collected on the date of the Encounter. Date/Time Temperature Pulse Blood Pressure Respiratory Rate SP02 Pain Height Weight Body Mass Index Source Dec 08, 2024 11:39 AM 97.7 F 89 /min 107/70 mm[Hg] 20 /min 94 % 0 70 in 192.6 lb 28 [facility] Social History: Smoking Status (Most current) and Tobacco Use (All prior to encounter date) This section includes the most current, and the historical, smoking and tobacco- related health factors from the [place] facility where the Encounter took place. Current Smoking Status This section includes the most current smoking, or tobacco-related health factor, from the [place] facility where the Encounter took place. Date/Time Current Smoking Status Comment Lux ity October 15, 2023 06:15 AM ORYX ADMIT TOBACCO SCREEN NO [facility] Tobacco Use History This section includes a history of the smoking, or tobacco-related health factors, that were collected on or before the date of the Encounter. The data comes from the [place] facility where the Encounter took place. Date/Time Smoking Status/Tobacco Use Comment F actoya October 14, 2022 01:17 PM VA-TOBACCO NEVER USED [facility] Mar 13, 2022 05:25 PM ORYX ADMIT TOBACCO SCREEN NO [facility] Apr 20, 2019 11:02 AM VA-TOBACCO FORMER USER [facility] Apr 20, 2019 11:02 AM VA-TOBACCO QUIT 15 YRS OR MORE [facility] Nov 19, 2015 09:23 AM LIFETIME NON-USER OF TOBACCO [facility] May 02, 2014 08:44 AM LIFETIME NON-USER OF TOBACCO [facility] Jun 15, 2013 04:36 PM LIFETIME NON-USER OF TOBACCO [facility] Jun 17, 2012 09:31 AM LIFETIME NON-USER OF TOBACCO [facility] Advance Directives: All historical and current Section Date Range: From patient's date of to the date document was created. This section includes ALL of a patient's completed or amended [place] Advance and Rescinded Directives. The entries below indicate that a directive exists for the patient, but an actual copy is not included with this document. The data comes from all [place] facilities. Date Advance Directives Provider Source Nov 19, 2015 ADVANCE DIRECTIVE DISCUSSION JENNIFER LONDONO [facility] Radiology Reports: +/- 30 days of [...] the Encounter. The data comes from all [place] treatment facilities. Date/Time Radiology Report Provider Source Dec 28, 2024 02:11 PM US RENAL COMPLETE: SKY SOTO [id number] -1945 Ex Date: DEC 28, 2024@14:11 Req Phys: BUBBA SIMS Pat Loc: [facility] (Req'g Loc) Img Loc: [facility] Service: Unknown [facility], [facility] [address] [place] [address] (Case [id number] COMPLETE) US RENAL COMPLETE (US Detailed) CPT:51144 Reason for Study: f/u rt kidney cyst and kidney stone Clinical History: Pt has history of nephrolithiasis Report Status: Verified Date Reported: DEC 28, 2024 Date Verified: DEC 28, 2024 Projector Booth Operator E-Sig:/ES/ROSA ISELA DAVIS Report: ACCESSION NUMBERS: [id number] US RENAL COMPLETE HISTORY: f/u rt kidney [...] prior exam. Dictated by Luis Chapman M.D. (anesthesia resident). Rosa Isela Alcocer, have reviewed the images and report and concur with these findings. Primary Interpreting Staff: ROSA ISELA DAVIS, Diagnostic Radiologist (Projector Booth Operator) Primary Interpreting Resident: LUIS CHAPMAN, Resident Physician /ROSA ISELA [facility] Encounter Notes: All associated encounter notes This section contains the clinical notes associated to the Encounter. Date/Time Encounter Note(s) Provider Source Dec 08, 2024 12:38 PM INTERNAL MEDICINE CLINICAL PHARMACIST MEDICATION MGT NOTE: LOCAL TITLE: CLINICAL PHARMACIST NOTE STL STANDARD TITLE: INTERNAL MEDICINE CLINICAL PHARMACIST MEDICATION DATE OF NOTE: DEC 08, 2024@12:38 ENTRY DATE: DEC 08, 2024@12:38:49 AUTHOR: RADHA KEYES COSIGNER: URGENCY: STATUS: COMPLETED CLINICAL PHARMACY FOLLOW-UP Subjective: SKY SOTO is a 79 MALE who presents to clinic for follow up on DM. PMH: 1) Kidney stone (SNOMED CT 47098356) 2) Mixed hyperlipidemia (SNOMED CT 186683053) 3) Permanent cardiac pacemaker (SNOMED CT 418231412478504) 4) Elevated Liver Function Tests 5) Benign [...] Biventricular automatic implantable cardioverter defibrillator in situ During the last contact with vet (10/13/2024), the following changes were made: -Start logging aspart doses into dexcom bharat -RD referral HPI: Diagnosis/Length of DM: type 1 DM (dx age 37) DKA: Complications present: (-)nephropathy: + micral (+)neuropathy (-)retinopathy per 05/03/2024 opto (-)CVA (-)IL (+)CABG/PCI/CAD-stent and CABG x 3 in 2023 During current visit: Pt presents to visit with to learn more about insulin pumps. Pt remains unsure if he is interested in one. Overviewed the available pumps and showed him the demos. is pushing for it more as she get low alerts in her hearing aids so this drives her nuts at night. Pt seems pleased with his current control and not sold on a pump. He said he will think about it and let his provider know if he wants to pursue one down the road. Dietary/Lifestyle/Social History modifications made: -Passed carb counting quiz with RD however remains ambivalent about desire for pump/willingness to track CHOs consistently as required when using pump. Breakfast: typically skips, wakes up and exercises (walks 3.5 miles) Lunch@11-noon: today had apple, milk, and rest of bread from [employer]-took 18 units (250 90 min later corrected with 10 units of aspart and SG while on phone 121)- dose typically 20-25 Dinner- last night had salad with chicken an strawberries with chunk of bread at [employer]- took 25 units of aspart (SG 164 pointing straight up, never went above 180, then had 5 fig newtons, milk, yogurt, banana before bed, still had low at 0200) ROS: DM: (+)hypoglycemia sxs or values <80mg/dL -glucagon pen , will mail Baqsimi (-)hyperglycemia sxs (-)tingling/numbness Objective: Allergies: CIPROFLOXACIN, LISINOPRIL Medications: Active and Recently Outpatient Medications (excluding Supplies): Active Outpatient Medications Status 1) ATORVASTATIN CALCIUM 80MG TAB TAKE ONE TABLET BY MOUTH EVERY ACTIVE EVENING FOR CHOLESTEROL. REPORT ANY UNEXPLAINED MUSCLE PAIN/WEAKNESS TO PROVIDER. Indication: FOR HIGH CHOLESTEROL 2) GABAPENTIN 300MG CAP TAKE ONE CAPSULE BY MOUTH THREE TIMES A ACTIVE DAY FOR PAIN Indication: FOR NERVE PAIN 3) INSULIN,ASPART(EQV-NOVLG)100 UN/ML FLXPEN INJECT 25 UNITS ACTIVE/PARKED UNDER THE SKIN THREE TIMES A DAY BEFORE MEALS ADMINISTER 10 MINUTES BEFORE FOOD DIRECTED. REFRIGERATE UN-OPENED PENS. DISCARD CARTRIDGE 28 DAYS AFTER OPENING.USES UP TO 100 UNITS THROUGHOUT THE DAY Indication: FOR DIABETES 4) INSULIN,GLARGINE 100 UNT/ML 3ML SOLOSTAR INJECT 15 [...] FOR GASTROESOPHAGEAL REFLUX DISEASE 12 Total Medications meds: -4 G6 sensors left Medication reconciliation completed: YES (DM focused) Adherence to above medications: good Refills/renewals needed: none Labs: CMP: SODIUM 137 mEq/L 10/06/2024 11:34 POTASSIUM [...] 11:34 EGFR (CKD-EPI 2020) 78.5 10/06/2024 11:34 Lipid Panel: TRIGLYCERIDE 101 mg/dL 04/06/2024 11:43 CHOLESTEROL 145 mg/dL 04/06/2024 11:43 HDL(New) 41 mg/dL 04/06/2024 11:43 CALCULATED LDL 84 mg/dL 04/06/2024 11:43 LDL (direct): ____ CPK: ____ MICRAL/CR PROFILE: CREATuF: 229.9 (04/06/24 11:49) M/CREAT: 90 (04/06/24 11:49) MICRAL: 206.9 (04/06/24 11:49) A1c: HGA1C 7.2 H % 10/06/2024 11:34 TSH: TSH 2.116 uIU/mL 10/06/2024 11:34 Vitamin D: No VITAMIN D 25 HYDROXY EO data found - Dexcom Clarity - Sky Soto Date of : 1945 Generated at: Dec 08, 2024 12:41 PM CDT Reporting period: ThuNov 25, 2024 - ThuDec 08, 2024 - Glucose Details Average glucose: 135 mg/dL GMI: 6.5% Standard deviation: 46 mg/dL Coefficient of Variation: 34.3% - Time in Range Very High: 3% High: 11% In Range: 83% Low: 3% Very Low: <1% Target Range 70-180 mg/dL - Sensor usage Days with data: Time active: 96% Avg. calibrations per day: 0.0 BP last visit: 107/70 (12/08/2024 11:39) Pulse last visit: 89 (12/08/2024 11:39) Assessment/Plan: 1) Type 1 Diabetes - Goal A1c <8%, FPG 80-160, PPG <210 d/t ASCVD per VA/DoD guidelines. A1c controlled to goal. TIR at goal. Bolus heavy regimen. Lows 2/2 large aspart doses and corrections. Pt eyeballing insulin doses and not logging into dexcom bharat. Passed carb counting quiz with RD, however not sure he wants to count carbs. Reviewed insulin pumps and different features. Offered to transition him to dexcom G7 CGM, pt said he will hold off on change for now. Pt would like to think about insulin pumps more and will reach out this junior copywriter if/when he is ready. -Start logging aspart doses into dexcom bharat -Continue insulin glargine 15 units daily -Continue aspart before meals and PRN corrections -Continue dexcom G6 + smartphone -Let provider know if/when ready to pursue pumps -Mailing inhaled glucagon - educated vet on hypoglycemia symptoms and appropriate treatment and when to contact clinic or go to emergency room -Education provided on nonpharmacologic ways to improve DM (including lifestyle management/dietary/physical activity) specific for the vet's needs. - verbalized understanding to all plans discussed today. Questions were answered to vet's satisfaction. Time spent with vet: 45 minutes RTC:N/A- pt declines f/u, says he will discuss pumps more with his provider after he has thought about it more PBM PharmD Pharmacotherapy Rem V12: PHARMACIST INTERVENTIONS: TYPE 1 DIABETES MELLITUS Medication monitoring, no dosage change required, continue to monitor and assess Address adherence Medication reconciliation (changes to active VA and non-VA medication lists to reconcile differences) No changes to medication lists made (medication review completed, no discrepancies identified) /reed/ RADHA KEYES Clinical Digital Developer Signed: 12/08/2024 14:41 RADHA KEYES [facility]
[2025-01-31] VITALS (13 sets, daily range): BP systolic 135–148; BP diastolic 73–90; PULSE 70–75; RESP 13–26; TEMP 36.9; O2SAT 88–100
--- NOTE | ~2025-01-31 | XR_ITS ---
EXAM/PROCEDURE: XR chest 2V - 01/31/2025 10:15 CDT HISTORY: 79 years old Male with cp, CHF TECHNIQUE: Two view(s) of the chest. COMPARISON: 06/17/2024 FINDINGS: LUNGS/ PLEURA: Mild vascular congestion with increased interstitial markings. HEART/ MEDIASTINUM: Cardiomediastinal silhouette is unchanged. Findings of prior median sternotomy are noted. BONES: Degenerative changes. OTHER: Visualized upper abdomen is unremarkable. Bilateral pacemakers appear unchanged since June. IMPRESSION: Mild CHF. Superimposed infection cannot be excluded. Reviewed, dictated and finalized at location N.
--- OUTSIDE RECORDS SUMMARY | 2025-01-31 04:55 | XMS_ITS | Continuity of Care Document ---
Author Name [facility] Organization [facility] Care Team Providers Care [employer] Supervisor Name Role Phone [facility] Unavailable Unavailable Problems Combined list of problems from Department of Defense and Veterans Affairs facilities. It does not include entries that were removed or entered in error. 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 Active Condition [facility] Closed extraarticular fracture of distal radius Active Condition [facility] Congestive heart failure Active Condition [facility] Coronary artery disease Active Condition [facility] Diabetes mellitus type 1 Active Condition [facility] Elevated Liver Function Tests Active Condition [facility] Elevated PSA Active Condition [facility] Exposure to potentially hazardous substance Active Condition [facility] History of coronary artery bypass grafting Active Condition [facility] Hyperlipidemia Active Condition [facility] Hypoglycaemia Active Condition [facility] Impacted cerumen of bilateral ears Active Condition [facility] Kidney stone (SNOMED CT 35604933) Active Condition Jun 17, 2012 Entered By: AIDEN SMITH Comment: h/o lithotripsy [facility] Lumbar radiculopathy Active Condition [facility] Mixed hyperlipidemia (SNOMED CT 798929191) Active Condition [facility] Neuropathy Active Condition [facility] Peripheral vascular disease Active Condition [facility] Permanent cardiac pacemaker (SNOMED CT 158304271635135) Active Condition [facility] Pneumonia Active Condition [facility] Benign hypertension (SNOMED CT 36445898) Inactive Condition 11/09/2020 [facility] Coronary arteriosclerosis (SNOMED CT 33997173) Inactive Condition 11/09/2020 Jun 17, 2012 Entered By: AIDEN SMITH Comment: had stents placed in the circumflex artery 2003 [facility] Diabetes mellitus Inactive Condition 11/09/2020 [facility] Medical examinations/reports status Inactive Condition 11/09/2020 [facility] Type II diabetes mellitus uncontrolled Inactive Condition 11/09/2020 [facility] Unresolved Inactive Condition 11/09/2020 Jun 17, 2012 Entered By: AIDEN SMITH Comment: followed by nonVA urologist [facility] Unresolved Inactive Condition 11/09/2020 [facility] Diagnosis: ICD-10-CM E10.59 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 Active Diagnosis [facility] Diagnosis: ICD-10-CM N20.0 Calculus of kidney Active Diagnosis [facility] Diagnosis: ICD-10-CM I50.20 Unspecified systolic (congestive) heart failure Active Diagnosis [facility] Diagnosis: ICD-10-CM N18.2 Chronic kidney disease, stage 2 (mild) Active Diagnosis [facility] Diagnosis: ICD-10-CM E10.649 Type 1 diabetes mellitus with hypoglycemia without coma Active Diagnosis [facility] Diagnosis: ICD-10-CM Z95.810 Presence of automatic (implantable) cardiac defibrillator Active Diagnosis [facility] Diagnosis: ICD-10-CM I25.810 Atherosclerosis of CABG w/o angina pectoris Active Diagnosis [facility] Diagnosis: ICD-10-CM R41.9 Unsp symptoms and signs w cognitive functions and awareness Active Diagnosis [facility] Diagnosis: ICD-10-CM I50.22 Chronic systolic (congestive) heart failure Active Diagnosis [facility] Diagnosis: ICD-10-CM I25.118 Athscl heart disease of [place] cor art w oth ang pctrs Active Diagnosis [facility] Diagnosis: ICD-10-CM Z23 Encounter for immunization Active Diagnosis [facility] Diagnosis: ICD-10-CM Z28.39 Other underimmunization status Active Diagnosis [facility] Diagnosis: ICD-10-CM H61.23 Impacted cerumen, bilateral [facility] Diagnosis: ICD-10-CM R07.89 Other chest pain Active Diagnosis [facility] Diagnosis: ICD-10-CM E10.9 Type 1 diabetes mellitus without complications Active Diagnosis [facility] Diagnosis: ICD-10-CM I95.89 Other hypotension Active Diagnosis [facility] Diagnosis: ICD-10-CM 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lower [place] coronary artery w/o ang pctrs Active Diagnosis [facility] Diagnosis: ICD-10-CM I10 Essential (primary) hypertension Active Diagnosis [facility] Diagnosis: ICD-10-CM H61.21 Impacted cerumen, right ear Active Diagnosis [facility] Diagnosis: ICD-10-CM Z95.0 Presence of cardiac pacemaker Active Diagnosis [facility] Admit Reason: CORONARY ARTERY DISEASE Active Diagnosis [facility] Diagnosis: ICD-10-CM I49.01 Ventricular fibrillation Active Diagnosis [facility] Diagnosis: ICD-10-CM R35.0 Frequency of micturition Active Diagnosis [facility] Diagnosis: ICD-10-CM E11.8 Type 2 diabetes mellitus with unspecified complications Active Diagnosis [facility] Medications Combined list of outpatient medications from Department of Defense and [facility] Affairs facilities.Medications provided include 1) outpatient medications from the last 15 months, and 2) patient-reported medications. Medication Details Route Status Patient Instructions Prescription Expires Prescription Number Last Dispense Date Ordering Provider Order Date Order Qty Source ASPIRIN 81MG TAB,EC TAKE ONE TABLET BY MOUTH ONCE A DAY TAKE WITH FOOD. ORAL DISCONT INUED BY PROVIDE R 11/16/2024 [id number] ALEXI CARTER N 2023 120 [facility] ASPIRIN 81MG TAB,EC TAKE ONE TABLET BY MOUTH ONCE A DAY ORAL ACTIVE ALEXI CARTER MARC N 2023 [facility] ATORVASTATI N CA 40MG TAB TAKE ONE-HALF TABLET BY MOUTH EVERY EVENING FOR CHOLESTE ROL. REPORT ANY UNEXPLAI LUCI MUSCLE PAIN/WEA KNESS TO PROVIDER . ORAL DISCONT INUED (EDIT) 06/03/2024 [id number] PHYLLIS CASE 2023 45 [facility]IS[facility] N ATORVASTATI N CA 80MG TAB TAKE ONE TABLET BY MOUTH EVERY EVENING FOR CHOLESTE ROL. REPORT ANY UNEXPLAI LUCI MUSCLE PAIN/WEA KNESS TO PROVIDER . ORAL ACTIVE 04/19/2025 [id number] 5 ALEXI CARTER N 2023 90 [facility] ATORVASTATI N CA 80MG TAB TAKE ONE-HALF TABLET BY MOUTH EVERY EVENING FOR CHOLESTE ROL. REPORT ANY UNEXPLAI LUCI MUSCLE PAIN/WEA KNESS TO PROVIDER . ORAL DISCONT INUED (EDIT) 12/24/2024 [id number] Jose De Jesus HORTON 2023 45 [facility] DIVIS[facility] N CARBAMIDE PEROXIDE 6.5%/GLYCER IN SOLN,OTIC INSTILL 5 DROPS IN BOTH EARS THREE TIMES PER WEEK FOR EAR WAX BLOCKAGE AURICU LAR (OTIC) 07/17/2024 [id number] 4 ALEXI CARTER N 2023 15 [facility] CHOLECALCIF CASSIDY 50MCG (2,000UNIT) TAB TAKE ONE TABLET BY MOUTH ONCE A DAY ORAL DISCONT INUED BY PROVIDE R 11/16/2024 [id number] 4 ALEXI CARTER N 2023 100 [facility] CHOLECALCIF CASSIDY 50MCG (2,000UNIT) TAB TAKE ONE TABLET BY MOUTH ONCE A DAY ORAL ACTIVE ALEXI CARTER N 2023 [facility] CITALOPRAM HYDROBROMID E 40MG TAB TAKE ONE-HALF TABLET BY MOUTH EVERY MORNING ORAL DISCONT INUED BY PROVIDE R 11/16/2024 [id number] 4 ALEXI CARTER N 2023 45 [facility] CITALOPRAM HYDROBROMID E 40MG TAB TAKE ONE-HALF TABLET BY MOUTH EVERY MORNING ORAL ACTIVE ALEXI CARTER N 2023 [facility] CITRIC ACID 640MG/SODIU M CITRATE 490MG/5ML SOLN,ORAL TAKE 15 ML BY MOUTH TWICE A DAY FOR PREVENTI ON OF KIDNEY STONES (MIX WITH 4 OUNCES OF WATER PRIOR TO DRINKING ) ORAL 01/24/2025 [id number] 5 BUBBA SIMS S 2023 500 [facility] DIVISIO N DOCUSATE NA 100MG CAP TAKE ONE CAPSULE BY MOUTH TWICE A DAY HOLD FOR LOOSE STOOL/DI ARRHEA. ORAL DISCONT INUED BY PROVIDE R 11/16/2024 [id number] 4 ALEXI CARTER N 2023 200 [facility] FUROSEMIDE 40MG TAB TAKE ONE TABLET BY MOUTH EVERY MORNING ORAL DISCONT INUED BY PROVIDE R 11/16/2024 [id number] 4 ALEXI CARTER N 2023 90 [facility] GABAPENTIN 300MG CAP TAKE ONE CAPSULE BY MOUTH THREE TIMES A DAY FOR PAIN ORAL ACTIVE 12/02/2025 [id number] 5 ALEXI CARTER MARC N 2024 270 [facility] GABAPENTIN 300MG CAP TAKE ONE CAPSULE BY MOUTH THREE TIMES A DAY FOR PAIN ORAL DISCONT INUED 11/22/2024 [id number] 5 ALEXI CARTER N 2023 270 [facility] GABAPENTIN 300MG CAP TAKE ONE CAPSULE BY MOUTH THREE TIMES A DAY FOR PAIN ORAL DISCONT INUED 02/04/2024 [id number] 4 ALEXI CARTER MARC N 2022 270 [facility] GLUCAGON 3MG INHL,NASAL, 2 PK SPRAY 1 SPRAY (3MG) IN ONE NOSTRIL ONLY ONE-TIME FOR LOW BLOOD SUGAR AFTER FIRST DOSE, SEEK MEDICAL ATTENTIO N IMMEDIAT LUIS. MAY GIVE ADDITION AL DOSE IF NO RESPONSE AFTER 15 MINUTES. DO NOT ADMINIST ER MORE THAN 2 SEQUENTI AL DOSES. NASAL 01/07/2025 [id number] 5 STEPHY,CL ARE R 2024 2 [facility] DIV[facility] N INSULIN,ASP ART,HUMAN (EQV-NOVOLO G) 100 UNIT/ML,FLE XPEN,3ML INJECT 25 UNITS UNDER THE SKIN THREE TIMES A DAY BEFORE MEALS ADMINIST ER 10 MINUTES BEFORE FOOD DIRECTED . REFRIGER ATE UN-OPENE D PENS. DISCARD CARTRIDG E 28 DAYS AFTER OPENING. USES UP TO 100 UNITS THROUGHO UT THE DAY SUBCUT ANEOUS ACTIVE 10/07/2025 [id number] 5 RADHA FLOYD 2024 30 [facility] DIVISIO N INSULIN,ASP ART,HUMAN (EQV-NOVOLO G) 100 UNIT/ML,FLE XPEN,3ML INJECT 25 UNITS UNDER THE SKIN THREE TIMES A DAY BEFORE MEALS FOR DIABETES ADMINIST ER 10 MINUTES BEFORE FOOD DIRECTED . REFRIGER ATE UN-OPENE D PENS. DISCARD CARTRIDG E 28 DAYS AFTER OPENING. USES UP TO 100 UNITS THROUGHO UT THE DAY SUBCUT ANEOUS DISCONT INUED (EDIT) 04/07/2025 [id number] 5 RADHA FLOYD 2023 30 [facility] DIV[facility] N INSULIN,ASP ART,HUMAN 100 UNT/ML INJ INJECT 25 UNITS UNDER THE SKIN THREE TIMES A DAY BEFORE MEALS - (DISCARD ANY UNUSED PORTION 28 DAYS AFTER OPENING) USE SLIDING SCALE DIRECTED BY DIABETES PHYSICIA N. *MAX OF 100 UNITS PER DAY* SUBCUT ANEOUS DISCONT INUED BY LUIS R 06/04/2024 [id number] 4 JOVITA AVINA 2023 10 [facility] DIV[facility] N INSULIN,GLA RGINE,HUMAN 100 UNIT/ML INJ,SOLOSTA R,3ML INJECT 15 UNITS UNDER THE SKIN ONCE A DAY FOR DIABETES ADMINIST ER AT SAME TIME EACH DAY DIRECTED . DISCARD ANY OPEN CARTRIDG E AFTER 28 DAYS. SUBCUT ANEOUS ACTIVE 10/14/2025 [id number] STEPHY,CL ARE R 2024 5 [facility] DIV[facility]IO N INSULIN,GLA RGINE,HUMAN 100 UNIT/ML INJ,SOLOSTA R,3ML INJECT 46 UNITS OF 100UNIT/ ML UNDER THE SKIN ONCE A DAY ADMINIST ER AT SAME TIME EACH DAY DIRECTED . DISCARD ANY OPEN CARTRIDG E AFTER 28 DAYS. SUBCUT ANEOUS DISCONT INUED (EDIT) 10/07/2025 [id number] 5 RADHA FLOYD 2024 15 [facility] DIV[facility] N INSULIN,GLA RGINE,HUMAN 100 UNIT/ML INJ,SOLOSTA R,3ML INJECT 46 UNITS UNDER THE SKIN ONCE A DAY FOR DIABETES ADMINIST ER AT SAME TIME EACH DAY DIRECTED . DISCARD ANY OPEN CARTRIDG E AFTER 28 DAYS. SUBCUT ANEOUS DISCONT INUED (EDIT) 04/07/2025 [id number] 5 RADHA FLOYD 2023 15 [facility] DIV[facility] N INSULIN,GLA RGINE-YFGN 100UNIT/ML INJ INJECT 46 UNITS UNDER THE SKIN ONCE A DAY (AT SAME TIME EACH DAY) - (DISCARD ANY UNUSED PORTION 28 DAYS AFTER OPENING) SUBCUT ANEOUS DISCONT INUED BY PROVIDE R 11/16/2024 [id number] 4 ALEXI CARTER 2023 4 [facility] ISOSORBIDE MONONITRATE 30MG TAB,SA TAKE ONE TABLET BY MOUTH ONCE A DAY FOR CHEST PAIN TAKE ON EMPTY STOMACH. SWALLOW WHOLE. DO NOT CRUSH OR CHEW. ORAL ACTIVE 05/14/2025 [id number] 5 PHYLLIS CASE 2023 90 [facility] DIVISIO N LOSARTAN 25MG TAB TAKE ONE-HALF TABLET BY MOUTH ONCE A DAY FOR HIGH BLOOD PRESSURE ORAL DISCONT INUED BY PROVIDE R 12/04/2024 [id number] 4 Jose De Jesus HORTON 2023 45 [facility] DIVISIO N METOPROLOL SUCCINATE 100MG TAB,SA TAKE ONE-HALF TABLET BY MOUTH ONCE A DAY SWALLOW WHOLE, DO NOT CRUSH OR CHEW (TABLETS MAY BE CUT IN HALF). ORAL DISCONT INUED (EDIT) 12/01/2024 [id number] 4 PHYLLIS CASE 2023 45 [facility] DIVISIO N METOPROLOL SUCCINATE 25MG TAB,SA TAKE ONE-HALF TABLET BY MOUTH ONCE A DAY FOR MYOCARDI AL INFARCTI ON SWALLOW WHOLE, DO NOT CRUSH OR CHEW (TABLETS MAY BE CUT IN HALF). ORAL DISCONT INUED 01/04/2025 [id number] 4 ALEXI CARTER MARC N 2023 45 [facility] METOPROLOL SUCCINATE 25MG TAB,SA TAKE ONE-HALF TABLET BY MOUTH ONCE A DAY FOR MYOCARDI AL INFARCTI ON SWALLOW WHOLE, DO NOT CRUSH OR CHEW (TABLETS MAY BE CUT IN HALF). ORAL DISCONT INUED 12/11/2024 [id number] PHYLLIS CASE 2023 45 [facility] DIVISIO N METOPROLOL SUCCINATE 25MG TAB,SA TAKE ONE-HALF TABLET BY MOUTH ONCE A DAY FOR MYOCARDI AL INFARCTI ON SWALLOW WHOLE, DO NOT CRUSH OR CHEW (TABLETS MAY BE CUT IN HALF). ORAL 01/04/2025 [id number] 5 RAULALEXI TRAN N 2023 45 [facility] METOPROLOL SUCCINATE 50MG TAB,SA TAKE ONE-HALF TABLET BY MOUTH ONCE A DAY FOR MYOCARDI AL INFARCTI ON SWALLOW WHOLE, DO NOT CRUSH OR CHEW (TABLETS MAY BE CUT IN HALF). ORAL DISCONT INUED (EDIT) 12/04/2024 [id number] 4 Jose De Jesus HORTON 2023 45 [facility] DIVISIO N METOPROLOL SUCCINATE 50MG TAB,SA TAKE ONE-HALF TABLET BY MOUTH ONCE A DAY SWALLOW WHOLE, DO NOT CRUSH OR CHEW (TABLETS MAY BE CUT IN HALF). ORAL DISCONT INUED (EDIT) 11/16/2024 [id number] 4 ALEXI CARTER N 2023 45 [facility] NITROGLYCER IN 0.4MG TAB,SUBLING UAL DISSOLVE ONE TABLET UNDER THE TONGUE ONE-TIME NEEDED FOR CHEST PAIN; IF NO IMPROVEM ENT AFTER FIRST DOSE CALL 9-1-1. MAY TAKE 2 ADDITION AL DOSES, 5 MINUTES APART SUBLIN FANNY 11/26/2023 [id number] 4 PHYLLIS CASE 2022 100 [facility] DIVISIO N PANTOPRAZOL E NA 40MG TAB,EC TAKE ONE TABLET BY MOUTH EVERY MORNING BEFORE A MEAL TAKE 30 MINUTES BEFORE MEAL(S) ORAL DISCONT INUED BY PROVIDE R 11/16/2024 [id number] 4 ALEXI CARTER 2023 90 [facility] PANTOPRAZOL E NA 40MG TAB,EC TAKE ONE TABLET BY MOUTH EVERY MORNING BEFORE A MEAL ORAL ACTIVE ALEXI CARTER N 2023 [facility] POLYETHYLEN E GLYCOL 3350 PWDR,ORAL MIX AND DRINK 1 CAPFUL BY MOUTH ONCE A DAY (MEASURE WITH CAP AND MIX IN 8 OZ OF WATER) ORAL DISCONT INUED BY PROVIDE R 11/16/2024 [id number] 4 ALEXI CARTER N 2023 1530 [facility] POTASSIUM CHLORIDE 20MEQ TAB,SA (DISPERSIBL E) TAKE ONE-HALF TABLET BY MOUTH ONCE A DAY TAKE WITH FOOD WHILE ON FUROSEMI DE ORAL DISCONT INUED BY PROVIDE R 11/16/2024 [id number] 4 ALEXI CARTER 2023 45 [facility] SACUBITRIL 49MG/VALSAR MORRISON 51MG TAB TAKE ONE-HALF TABLET BY MOUTH TWICE A DAY FOR HEART FAILURE ORAL DISCONT INUED BY PROVIDE R 12/01/2024 [id number] 4 PHYLLIS CASE 2023 90 [facility] DIVISIO N SENNOSIDES 8.6MG TAB TAKE ONE TABLET BY MOUTH ONCE A DAY NEEDED ORAL DISCONT INUED BY PROVIDE R 11/16/2024 [id number] 4 ALEXI CARTER 2023 100 [facility] TAMSULOSIN HCL 0.4MG CAP TAKE ONE CAPSULE BY MOUTH EVERY EVENING APPROXIM ATELY 30 MINUTES AFTER THE SAME MEAL EACH DAY ORAL ACTIVE 04/19/2025 [id number] 5 ALEXI CARTER N 2024 90 [facility] TAMSULOSIN HCL 0.4MG CAP TAKE ONE CAPSULE BY MOUTH EVERY EVENING APPROXIM ATELY 30 MINUTES AFTER THE SAME MEAL EACH DAY ORAL DISCONT INUED 08/28/2024 [id number] [place] NICHOLS S 2023 90 [facility] DIV[facility] N Allergies, Adverse Reactions, Alerts Combined list of allergies from Department of [facility] and Veterans Affairs facilities. It does not include entries that were removed or entered in error. Substance Category Reaction Severity Reaction type Status Date Reported Comments Source CIPROFLOXACI N Propensity to adverse reactions to drug (finding) Muscle pain active 3 [facility] LEVAQUIN Propensity to adverse reactions to drug (finding) active 2 [facility] LISINOPRIL Propensity to adverse reactions to drug (finding) Hyperkalemi a MODERATE active 9 [facility] Immunizations Combined list of available immunizations from the Department of [facility] and [facility] facilities. Immunization Series Date Given Administered By Site Reaction Lot Number CVX Code Drug Granulator Status Comments Source COVID-19 (PFIZER), MRNA, LNP-S, PF, GAMAL-SUCROSE, 30 MCG/0.3 ML (AGES 12+ YEARS) 1 2024 ANGELA BRUNO RIGHT DELTO ID [id number] 309 complet ed [facility] PNEUMOCOCCAL CONJUGATE PCV20, POLYSACCHARID E [id number] CONJUGATE, ADJUVANT, PF 2024 ANGELA BRUNO LEFT DELTO ID [id number] 216 complet ed [facility] RSV, BIVALENT, PROTEIN SUBUNIT RSVPREF, DILUENT RECONSTITUTED , 0.5 ML, PF 2023 SHERIF BENITES L RIGHT DELTO ID [id number] 305 complet ed [facility] COVID-19 (PFIZER), MRNA, LNP-S, PF, GAMAL-SUCROSE, 30 MCG/0.3 ML (AGES 12+ YEARS) 1 2022 ALEGRIA-ALT,CAR LA D LEFT DELTO ID [id number] 309 complet ed [facility] INFLUENZA, HIGH-DOSE, QUADRIVALENT 2022 ALEGRIA-ALT,CAR LA D LEFT DELTO ID [id number] A 197 complet ed Completed Series, [facility] COVID-19, MRNA, LNP-S, BIVALENT BOOSTER, PF, 30 MCG/0.3 ML DOSE 1 2021 300 complet ed PFR; [id number]; 3 [facility] INFLUENZA VACCINE, QUADRIVALENT, ADJUVANTED 2021 205 complet ed [facility] COVID-19 (PFIZER), MRNA, LNP-S, PF, 30 MCG/0.3 ML DOSE 3 2020 208 complet ed PFR; [id number]; 2 [facility] INFLUENZA, UNSPECIFIED FORMULATION 2020 88 complet ed [facility] ZOSTER RECOMBINANT 2 2020 187 complet ed [facility] ZOSTER RECOMBINANT 1 2020 187 complet ed [facility] COVID-19 (PFIZER), MRNA, LNP-S, PF, 30 MCG/0.3 ML DOSE 2 2020 208 complet ed PFR; [id number]; 1 [facility] COVID-19 (PFIZER), MRNA, LNP-S, PF, 30 MCG/0.3 ML DOSE 1 2020 208 complet ed PFR; [id number]; 1 [facility] INFLUENZA, UNSPECIFIED FORMULATION 2019 88 complet ed [facility] INFLUENZA, UNSPECIFIED FORMULATION 2018 88 complet ed [facility] DIVISIO N INFLUENZA, UNSPECIFIED FORMULATION 2017 88 complet ed [facility] INFLUENZA, INJECTABLE, QUADRIVALENT, PRESERVATIVE FREE 2016 150 complet ed [facility] TDAP 2016 115 complet ed Left Deltoid [facility] INFLUENZA, UNSPECIFIED FORMULATION 2015 88 complet ed [facility] INFLUENZA, UNSPECIFIED FORMULATION 2014 88 complet ed [facility] N PNEUMOCOCCAL CONJUGATE PCV 13 2014 133 complet ed vet will mail [facility] INFLUENZA, UNSPECIFIED FORMULATION 2013 88 complet ed [facility] N INFLUENZA, UNSPECIFIED FORMULATION 2012 88 complet ed [facility] N PNEUMOCOCCAL POLYSACCHARID E [id number] 2012 33 complet ed vet will mail [facility] PNEUMOCOCCAL, UNSPECIFIED FORMULATION 2012 109 complet ed [facility] TDAP 2006 115 complet ed [facility] Results Combined list of recent chemistry, hematology and other laboratory results from Department of Defense and Veterans Affairs, ranging from 15 months to all on record, depending upon the facility. Order Name Results Value Reference Range Date Interpretation Specimen Comments Source MICRAL/C REAT PROFILE (STL) ALBUMIN [MASS/VOLU ME] IN URINE 33.2 mg/L 12/28 Specimen Type: URINE No comment entered. Ordering Provider: Akash SIMS Report Released Date/Time: Dec 06, 2024 10:17 AM Reporting Lab: [facility] [address] [facility] [address] Performing Lab: [facility] [address] [facility] [address] [facility] MICRAL/C REAT PROFILE (STL) ALBUMIN/CR EATININE [MASS RATIO] IN URINE 34 mg/g 0 - 29 12/28 H Specimen Type: URINE No comment entered. Ordering Provider: Akash SIMS Report Released Date/Time: Dec 06, 2024 10:17 AM Reporting Lab: [address] [address] Performing Lab: [facility] [address] [facility] [address] [facility] MICRAL/C REAT PROFILE (STL) CREATININE [MASS/VOLU ME] IN URINE 97.4 mg/dL 63 - 166 12/28 Specimen Type: URINE No comment entered. Ordering Provider: Akash SIMS Report Released Date/Time: Dec 06, 2024 10:17 AM Reporting Lab: [place] [address] [facility] [address] Performing Lab: [place] [address] [facility] [address] [facility] GLUCOSE, BLOOD-po ct (STL) GLUCOSE [MASS/VOLU ME] IN BLOOD BY AUTOMATED TEST STRIP 114 mg/dL 72 - 99 10/12 H Specimen Type: BLOOD Comment: Test Performed by: [id number] Meter #: [id number] Ordering Provider: DARCIE CARTER Report Released Date/Time: October 12, 2024 03:22 PM Reporting Lab: [address] [address] Performing Lab: [address] [address] [facility] C-PEPTID E C PEPTIDE [MASS/VOLU ME] IN SERUM OR PLASMA 0.75 ng/mL 0.80 - 3.85 10/06 L Specimen Type: SERUM Comment: Test Performed by [facility] [employer] [place], [address] [place] [address] Shon Markham M.D., Ph.D., Director of Laboratorie s , CLIA [id number] Test Performed by [facility], [email or web address] [place], [address] [place] [address] Shon Markham M.D., Ph.D., Director of Laboratorie s , CLIA [id number] Ordering Provider: KAYLEN FLOYD Report Released Date/Time: October 06, 2024 11:23 AM Reporting Lab: [facility] [address] [facility] [address] Performing Lab: [facility] [address] [place] [address] [facility] CORTISOL (STL Eff 03/08) CORTISOL [MASS/VOLU ME] IN SERUM OR PLASMA --PRE 250 UG CORTICOTRO PIN IM 8.100 ug/dL 10/06 Specimen Type: PLASMA Comment: No hemolysis noted. Ordering Provider: KAYLEN FLOYD Report Released Date/Time: October 06, 2024 11:23 AM Reporting Lab: [place] [phone] Performing Lab: [phone] [place] [address] HGA1C HEMOGLOBIN A1C/HEMOGL OBIN.TOTAL IN BLOOD 7.2 4.0 - 6.0 10/06 H Specimen Type: BLOOD No comment entered. Ordering Provider: KAYLEN FLOYD Report Released Date/Time: October 06, 2024 11:23 AM Reporting Lab: [address] [address] Performing Lab: [phone] [place] [address] TSH (MA-PB) THYROTROPI N [UNITS/VOL UME] IN SERUM OR PLASMA 2.116 u[IU]/mL 0.47 - 5 10/06 Specimen Type: SERUM No comment entered. Ordering Provider: KAYLEN FLOYD Report Released Date/Time: October 06, 2024 11:23 AM Reporting Lab: [address] [address] Performing Lab: [phone] [place] [address] COMPREHE NSIVE METABOLI C PANEL CREATININE [MASS/VOLU ME] IN SERUM OR PLASMA 0.99 mg/dL 0.7 - 1.3 10/06 Specimen Type: PLASMA Comment: No hemolysis noted. Ordering Provider: KAYLEN FLOYD Report Released Date/Time: October 06, 2024 11:23 AM Reporting Lab: [facility] [address] [facility] [id number] Performing Lab: [facility] [address] [facility] [id number] [facility] COMPREHE NSIVE METABOLI C PANEL UREA NITROGEN [MASS/VOLU ME] IN SERUM OR PLASMA 23.5 mg/dL 9.0 - 25.0 10/06 Specimen Type: PLASMA Comment: No hemolysis noted. Ordering Provider: KAYLEN FLOYD Report Released Date/Time: October 06, 2024 11:23 AM Reporting Lab: [place] [address] [facility] [address] Performing Lab: [place] [address] [facility] [address] [facility] COMPREHE NSIVE METABOLI C PANEL GLUCOSE [MASS/VOLU ME] IN SERUM OR PLASMA 156 mg/dL 72 - 99 10/06 H Specimen Type: PLASMA Comment: No hemolysis noted. Ordering Provider: KAYLEN FLOYD Report Released Date/Time: October 06, 2024 11:23 AM Reporting Lab: [place] [address] [facility] [address] Performing Lab: [facility] [address] [facility] [address] [facility] COMPREHE NSIVE METABOLI C PANEL SODIUM [MOLES/VOL UME] IN SERUM OR PLASMA 137 meq/L 136 - 145 10/06 Specimen Type: PLASMA Comment: No hemolysis noted. Ordering Provider: KAYLEN FLOYD Report Released Date/Time: October 06, 2024 11:23 AM Reporting Lab: [place] [address] [facility] [address] Performing Lab: [facility] [address] [facility] [address] [facility] COMPREHE NSIVE METABOLI C PANEL POTASSIUM [MOLES/VOL UME] IN SERUM OR PLASMA 4.6 meq/L 3.5 - 5 10/06 Specimen Type: PLASMA Comment: No hemolysis noted. Ordering Provider: KAYLEN FLOYD Report Released Date/Time: October 06, 2024 11:23 AM Reporting Lab: [place] [address] [address] [facility] [address] Performing Lab: [place] [address] [address] [facility] [address] [facility] COMPREHE NSIVE METABOLI C PANEL CHLORIDE [MOLES/VOL UME] IN SERUM OR PLASMA 106 meq/L 98 - 107 10/06 Specimen Type: PLASMA Comment: No hemolysis noted. Ordering Provider: KAYLEN FLOYD Report Released Date/Time: October 06, 2024 11:23 AM Reporting Lab: [place] [address] [address] [facility] [address] Performing Lab: [place] [address] [address] [facility] [address] [facility] COMPREHE NSIVE METABOLI C PANEL CARBON DIOXIDE, TOTAL [MOLES/VOL UME] IN SERUM OR PLASMA 26 meq/L 22 - 31 10/06 Specimen Type: PLASMA Comment: No hemolysis noted. Ordering Provider: KAYLEN FLOYD Report Released Date/Time: October 06, 2024 11:23 AM Reporting Lab: [facility] [address] [facility] [address] Performing Lab: [place] [address] [address] [facility] [address] [facility] COMPREHE NSIVE METABOLI C PANEL CALCIUM [MASS/VOLU ME] IN SERUM OR PLASMA 8.9 mg/dL 8.4 - 10.4 10/06 Specimen Type: PLASMA Comment: No hemolysis noted. Ordering Provider: KAYLEN FLOYD Report Released Date/Time: October 06, 2024 11:23 AM Reporting Lab: [facility] [address] [facility] [address] Performing Lab: [facility] 91 [facility] [address] [facility] COMPREHE NSIVE METABOLI C PANEL PROTEIN [MASS/VOLU ME] IN SERUM OR PLASMA 6.7 g/dL 6 - 8.6 10/06 Specimen Type: PLASMA Comment: No hemolysis noted. Ordering Provider: KAYLEN FLOYD Report Released Date/Time: October 06, 2024 11:23 AM Reporting Lab: [place] [address] [facility] [address] Performing Lab: [place] [address] [facility] [address] [facility] COMPREHE NSIVE METABOLI C PANEL ALBUMIN [MASS/VOLU ME] IN SERUM OR PLASMA 4.0 g/dL 3.4 - 5 10/06 Specimen Type: PLASMA Comment: No hemolysis noted. Ordering Provider: KAYLEN FLOYD Report Released Date/Time: October 06, 2024 11:23 AM Reporting Lab: [address] [address] Performing Lab: [place] [address] [facility] [address] [facility] COMPREHE NSIVE METABOLI C PANEL BILIRUBIN. TOTAL [MASS/VOLU ME] IN SERUM OR PLASMA 1.5 mg/dL 0.2 - 1.2 10/06 H Specimen Type: PLASMA Comment: No hemolysis noted. Ordering Provider: KAYLEN FLOYD Report Released Date/Time: October 06, 2024 11:23 AM Reporting Lab: [address] [address] Performing Lab: [address] [address] [facility] COMPREHE NSIVE METABOLI C PANEL ALKALINE PHOSPHATAS E [ENZYMATIC ACTIVITY/V OLUME] IN SERUM OR PLASMA 161 U/L 40 - 150 10/06 H Specimen Type: PLASMA Comment: No hemolysis noted. Ordering Provider: KAYLEN FLOYD Report Released Date/Time: October 06, 2024 11:23 AM Reporting Lab: [place] [address] [address] [facility] [address] Performing Lab: [place] [address] [address] [facility] [address] [facility] COMPREHE NSIVE METABOLI C PANEL ASPARTATE AMINOTRANS FERASE [ENZYMATIC ACTIVITY/V OLUME] IN SERUM OR PLASMA 30 U/L 5 - 34 10/06 Specimen Type: PLASMA Comment: No hemolysis noted. Ordering Provider: KAYLEN FLOYD Report Released Date/Time: October 06, 2024 11:23 AM Reporting Lab: [place] [address] [facility] [address] Performing Lab: [place] [address] [facility] [phone] [place] [address] COMPREHE NSIVE METABOLI C PANEL ALANINE AMINOTRANS FERASE [ENZYMATIC ACTIVITY/V OLUME] IN SERUM OR PLASMA 22 U/L 8 - 40 10/06 Specimen Type: PLASMA Comment: No hemolysis noted. Ordering Provider: KAYLEN FLOYD Report Released Date/Time: October 06, 2024 11:23 AM Reporting Lab: [place] [address] [facility] [address] Performing Lab: [place] [address] [facility] [address] [facility] COMPREHE NSIVE METABOLI C PANEL GLOMERULAR FILTRATION RATE/1.73 SQ M.PREDICTE D [VOLUME RATE/AREA] IN SERUM, PLASMA OR BLOOD BY CREATININE -BASED FORMULA (CKD-EPI 2020) 78.5 60 10/06 Specimen Type: PLASMA Comment: No hemolysis noted. Ordering Provider: KAYLEN FLOYD Report Released Date/Time: October 06, 2024 11:23 AM Reporting Lab: [place] [address] [facility] [address] Performing Lab: [place] [address] [facility] [address] [facility] OCCULT BLOOD FIT X1 SCREEN HEMOGLOBIN .GASTROINT ESTINAL.LO WER [PRESENCE] IN STOOL BY IMMUNOASSA Y Negative 06/15 Specimen Type: FECES No comment entered. Ordering Provider: DARCIE CARTER Report Released Date/Time: Apr 18, 2024 11:49 AM Reporting Lab: [address] [address] Performing Lab: [address] [address] [facility] GLUCOSE, BLOOD-po ct (STL) GLUCOSE [MASS/VOLU ME] IN BLOOD BY AUTOMATED TEST STRIP 125 mg/dL 72 - 99 04/18 H Specimen Type: BLOOD Comment: Test Performed by: [id number] Meter #: [id number] Ordering Provider: DARCIE CARTER Report Released Date/Time: Apr 18, 2024 04:26 PM Reporting Lab: [address] [address] Performing Lab: [address] [phone] [place] [address] MICRAL/C REAT PROFILE (STL) ALBUMIN [MASS/VOLU ME] IN URINE 206.9 mg/L 04/06 Specimen Type: URINE No comment entered. Ordering Provider: DARCIE CARTER Report Released Date/Time: Jan 04, 2024 04:29 PM Reporting Lab: [address] [address] Performing Lab: [address] [address] [facility] MICRAL/C REAT PROFILE (STL) ALBUMIN/CR EATININE [MASS RATIO] IN URINE 90 mg/g 0 - 29 04/06 H Specimen Type: URINE No comment entered. Ordering Provider: DARCIE CARTER Report Released Date/Time: Jan 04, 2024 04:29 PM Reporting Lab: [address] [place] [address] Performing Lab: [facility] [address] [facility] [address] [facility] MICRAL/C REAT PROFILE (STL) CREATININE [MASS/VOLU ME] IN URINE 229.9 mg/dL 63 - 166 04/06 H Specimen Type: URINE No comment entered. Ordering Provider: DARCIE CARTER Report Released Date/Time: Jan 04, 2024 04:29 PM Reporting Lab: [facility] [address] [facility] [address] Performing Lab: [place] [address] [facility] [address] [facility] Vital Signs Combined list of inpatient and outpatient Vital Signs from Department of Defense and Veterans Affairs, ranging from 12 months to all on record, depending upon the facility. Vital Sign Value Date Comments Source SYSTOLIC BLOOD PRESSURE 107 12/09/19 11:39:29 [facility] DIASTOLIC BLOOD PRESSURE 70 025 11:39:29 [facility] PULSE OXIMETRY 94 % 12/08/2024 11:39:29 [facility] WEIGHT 192.6 12/08/2024 11:39:29 [facility] BMI 28 kg/m2 12/08/2024 11:39:29 [facility] PAIN 0 12/08/2024 11:39:29 [facility] HEIGHT 70 12/08/2024 11:39:29 [facility] TEMPERATURE 97.7 12/08/2024 11:39:29 [facility] PULSE 89 12/08/2024 11:39:29 [facility] RESPIRATION 20 12/08/2024 11:39:29 [facility] SYSTOLIC BLOOD PRESSURE 121 12/07/19 25 09:45:28 [facility] DIASTOLIC BLOOD PRESSURE 77 025 09:45:28 [facility] PULSE OXIMETRY 95 % 12/06/2024 09:45:28 [facility] WEIGHT 191.9 12/06/2024 09:45:28 [facility] BMI 28 kg/m2 12/06/2024 09:45:28 [facility] PAIN 0 12/06/2024 09:45:28 [facility] TEMPERATURE 97.4 12/06/2024 09:45:28 [facility] PULSE 89 12/06/2024 09:45:28 [facility] RESPIRATION 16 12/06/2024 09:45:28 [facility] SYSTOLIC BLOOD PRESSURE 134 10/13/19 13:56:37 [facility] DIASTOLIC BLOOD PRESSURE 80 025 13:56:37 [facility] PULSE OXIMETRY 97 10/12/2024 13:56:37 [facility] WEIGHT 196.6 10/12/2024 13:56:37 [facility] BMI 28 kg/m2 10/12/2024 13:56:37 [facility] PAIN 0 10/12/2024 13:56:37 [facility] HEIGHT 70 10/12/2024 13:56:37 [facility] TEMPERATURE 98.4 10/12/2024 13:56:37 [facility] PULSE 89 10/12/2024 13:56:37 [facility] RESPIRATION 16 10/12/2024 13:56:37 [facility] SYSTOLIC BLOOD PRESSURE 117 10/07/19 25 10:57:46 [facility] DIASTOLIC BLOOD PRESSURE 74 025 10:57:46 [facility] PULSE OXIMETRY 97 10/06/2024 10:57:46 [facility] WEIGHT 195 10/06/2024 10:57:46 [facility] BMI 28 kg/m2 10/06/2024 10:57:46 [facility] PAIN 0 10/06/2024 10:57:46 [facility] TEMPERATURE 98 10/06/2024 10:57:46 [facility] PULSE 88 10/06/2024 10:57:46 [facility] RESPIRATION 16 10/06/2024 10:57:46 [facility] SYSTOLIC BLOOD PRESSURE 103 09/06/19 25 13:38:36 [facility] DIASTOLIC BLOOD PRESSURE 64 025 13:38:36 [facility] PULSE OXIMETRY 95 09/05/2024 13:38:36 [facility] WEIGHT 194.9 09/05/2024 13:38:36 [facility] BMI 28 kg/m2 09/05/2024 13:38:36 [facility] PAIN 0 09/05/2024 13:38:36 [facility] TEMPERATURE 97.7 09/05/2024 13:38:36 [facility] PULSE 88 09/05/2024 13:38:36 [facility] RESPIRATION 16 09/05/2024 13:38:36 [facility] Encounters Combined list of: 1) Encounters from Department of [facility] Affairs facilities going backup to the last 18 months, not all VA inpatient encounters are included; 2) Encounters from the Department of Defense facilities going backup to 280 months. 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 N [facility] OFF/OP EST MAY X REQ PHY/QHP [id number] Diagnos is: ICD-10- CM H61.23 valentin Chau RICH ELLE D 09/02 [facility] Outpatient Encounter [id number] 09/16 [facility] Outpatient Encounter [id number] 09/16 [facility] OFF/OP EST MAY X REQ PHY/QHP [id number] [id number] Diagnos is: ICD-10- CM I49.01 Ventric ular fibrill ation [facility] 09/16 [facility] Outpatient Encounter [id number] MAURILIO SY 10/05 [facility] N [facility] INTERROG DEVICE EVAL HEART [id number] [id number] Diagnos is: ICD-10- CM I50.20 Unspeci fied systoli c (conges tive) heart failure JUAN TOMAS C 10/05 [facility] OFFICE O/P EST HI 40 MIN [id number] Diagnos is: ICD-10- CM I49.01 Ventric ular fibrill ation JUAN TOMAS Giovany 10/05 [facility] Outpatient Encounter [id number] 10/05 [facility] HC PRO PHONE CALL 21-30 MIN [id number] [id number] Diagnos is: ICD-10- CM I50.20 Unspeci fied systoli c (conges tive) heart failure KEYANNA SAINZ 10/07 [facility] Outpatient Encounter [id number] 10/07 [facility] OFFICE O/P EST MOD 30 MIN [id number] [id number] Diagnos is: ICD-10- CM I50.22 Chronic systoli c (conges tive) heart failure MALVIN CASE Dante 10/11 [facility] Outpatient Encounter [id number] 10/12 [facility] [place] [id number] [id number] Diagnos is: ICD-10- CM 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[place] coronar y artery w/o ang pctCRIS Chappell SA 10/14 [facility] OFFICE O/P EST MOD 30 MIN [id number] [id number] Diagnos is: ICD-10- CM I49.01 Ventric ular fibrill ation GRETCHEN FREIRE 10/14 [facility] Outpatient Encounter [id number] 10/14 [facility] Inpatient Encounter [id number] Admit Reason: CORONAR Y ARTERY DISEASE DAV,MED 10/14 [facility] Inpatient Encounter [id number] MANUELADARIONJAIME 10/14 [facility] Inpatient Encounter [id number] [id number] JAIME CABRERA 10/14 [facility] Inpatient Encounter [id number] [id number] EDWINA NICK RA 10/14 [facility] IP/OBS CONSLTJ NEW/[place] HI 80 [id number] [id number] Diagnos is: ICD-10- CM 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[place] coronar y artery w/o ang pctrs KERLINE HOANG 10/14 [facility] Inpatient Encounter [id number] [id number] TRISTIN SMALLS 10/14 [facility] Inpatient Encounter [id number] [id number] 1 Azucena PINTO 10/15 [facility] Inpatient Encounter [id number] [id number] TRISTIN SMALLS 10/15 [facility] RENDER W/INTRP POSTPROCES [id number] [id number] Diagnos is: ICD-10- CM I25.118 Athscl heart disease of [place] cor art w oth ang pctrs KERLINE PEREZ 10/15 [facility] Encounter [id number] [id number] Akash ROBLES M 10/15 [facility] Encounter [id number] [id number] 1 Akash ROBLES 10/15 [facility]counter [id number] [id number] ELYDAGOBERTO Azucena 10/15 [facility] Inpatient Encounter [id number] [id number] Akash ROBLES M 10/15 [facility] Inpatient Encounter [id number] [id number] EPHRAIM PARKS 10/15 [facility] Inpatient Encounter [id number] [id number] 3 EPHRAIM PARKS 10/15 [facility] Inpatient Encounter [id number] [id number] 10/16 [facility] Encounter [id number] [id number] 5 SUSANNAH LOUISE N 10/16 [facility] Inpatient Encounter [id number] [id number] EPHRAIM PARKS C 10/16 [facility] Outpatient Encounter [id number]. [id number] 10/20 [facility] QNHP OL DIG ASSMT&MGMT 5-10 [id number] Diagnos is: ICD-10- CM I50.20 Unspeci fied systoli c (conges tive) heart failure GITA SARMIENTO L 10/26 [facility] OFF/OP EST MAY X REQ PHY/QHP [id number] [id number] Diagnos is: ICD-10- CM Z95.0 Presenc e of cardiac pacemak er RADHA NGUYEN 10/29 [facility] Outpatient Encounter [id number] [id number] ENRIQUE MANCIA L 11/02 [facility] OFF/OP CNSLTJ NEW/EST LOW 30 [id number] [id number] Diagnos is: ICD-10- CM 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[place] coronar y artery w/o ang pctrs KERLINE HOANG 11/02 [facility] Outpatient Encounter [id number] 11/04 [facility] Outpatient Encounter [id number]. [id number] 11/05 [facility] Outpatient Encounter [id number] [id number] 11/10 [facility] Outpatient Encounter [id number] [id number] 11/12 [facility] OFFICE O/P EST HI 40 MIN [id number] Diagnos is: ICD-10- CM 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[place] coronar y artery w/o yasmeen pctrs KERLINE HOANG 11/18 [facility] SELF CARE MNGMENT TRAINING [id number] [id number] Diagnos is: ICD-10- CM 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[place] coronar y artery w/o yasmeen pctrs MARIANN WITT 11/18 [facility] Outpatient Encounter [id number] 11/21 [facility] OFFICE O/P EST MOD 30 MIN [id number] [id number] Diagnos is: ICD-10- CM I50.22 Chronic systoli c (conges tive) heart failure MANPREETMALVIN Dante 11/29 [facility] Outpatient Encounter [id number] [id number] 1 12/01 [facility] QNHP OL DIG ASSMT&MGMT 04-20 [id number] [id number] Diagnos is: ICD-10- CM I10 Essenti al (primar y) hyperte MILAGROS David M 12/03 [facility] HC PRO PHONE CALL 5-10 MIN [id number] [id number] Diagnos is: ICD-10- CM I10 Essenti al (primar y) hypertMILAGROS Guerrero 12/03 [facility] OFF/OP CNSLTJ NEW/EST LOW 30 [id number] [id number] Diagnos is: ICD-10- CM 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[place] coronar y artery w/o ang pctNathalie Ortega 12/08 [facility] QNHP OL DIG ASSMT&MGMT 5-10 [id number] [id number] Diagnos is: ICD-10- CM 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[place] coronar y artery w/o ang pctinés MILAGROS CALDERON 12/09 [facility] Outpatient Encounter [id number] Diagnos is: ICD-10- CM 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[place] coronar y artery w/o ang pctMALVIN Dominguez 12/10 [facility] OFFICE O/P EST MOD 30 MIN [id number] [id number] Diagnos is: ICD-10- CM N18.2 Chronic kidney disease , stage 2 (mild) BUBBA SIMS 12/14 [facility] Outpatient Encounter [id number] [id number] 12/17 [facility] Outpatient Encounter [id number] 12/20 [facility] Outpatient Encounter [id number] [id number] RADHA NGUYEN 12/21 [facility] [place] [id number] [id number] Diagnos is: ICD-10- CM H61.21 Impacte d cerumen , right ear TRAN ALVARADO E 12/23 [facility] PRO PHONE CALL 11-20 MIN [id number] [id number] Diagnos is: ICD-10- CM I10 Essenti al (primar y) hyperte ammyion MILAGROS CALDERON 12/23 [facility] Outpatient Encounter [id number] [id number] RADHA NGUYEN 01/03 [facility] Outpatient Encounter [id number] 01/05 [facility] Outpatient Encounter [id number] [id number] MARI COMBS 01/06 [facility] Outpatient Encounter [id number] [id number] 01/20 [facility] Outpatient Encounter [id number] [id number] Diagnos is: ICD-10- CM N20.0 Calculu s of kidney BUBBA SIMS S 01/23 [facility] QNHP OL DIG ASSMT&MGMT 21+ [id number] [id number] Diagnos is: ICD-10- CM 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[place] coronar y artery w/o ang pctrs KVNG,JA HEIKE Nathalie 02/02 [facility] Outpatient Encounter [id number] [id number] 1 TIANNAChantal Beard ASSAM 02/07 [facility] EMERGENCY DEPT VISIT MOD MDM [id number] [id number] Diagnos is: ICD-10- CM I95.89 Other hypoten francisco javier Chantal MASSEY ASSAM 02/07 [facility] Outpatient Encounter [id number] 02/07 [facility] Outpatient Encounter [id number] Pawan HERNANDEZ 02/07 [facility] Outpatient Encounter [id number] [id number] TIANNAChantal Beard ASSAM 02/07 [facility] Outpatient Encounter [id number] [id number] 02/08 [facility] Outpatient Encounter [id number] [id number] Giovany ESCOBAR 02/14 [facility] Outpatient Encounter 31500-3.65 [id number] NAKUL HAMILTON AM H 03/18 [facility] OFFICE O/P EST LOW 20 MIN [id number] [id number] Diagnos is: ICD-10- CM N20.0 Calculu s of kidney LEONEL,R ALPH J 04/04 [facility]P EST MOD 30 MIN 54905-4.65 [id number] Diagnos is: ICD-10- CM 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 SARAILALITSUHAAzucena MAXMARIA DE JESUS JARVIS 04/06 [facility] OFFICE O/P EST MOD 30 MIN [id number] [id number] Diagnos is: ICD-10- CM I50.22 Chronic systoli c (conges tive) heart failure CASEMALVIN Rock 04/06 [facility] Outpatient Encounter [id number] [id number] MALVIN CASE 04/13 [facility] OFFICE O/P EST MOD 30 MIN 90459-0.65 [id number] Diagnos is: ICD-10- CM 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 RAUL,MIKE Dela Cruz 04/18 [facility] OFFICE O/P EST LOW 20 MIN 02640-4.65 [id number] Diagnos is: ICD-10- CM E10.9 Type 1 diabete s mellitu s without complic ations OMID [place] 05/03 [facility] En[facility] [id number] [id number] IRVIN CALLOWAY 05/11 [facility] OFFICE O/P EST MOD 30 MIN 99365-7.65 [id number] Diagnos is: ICD-10- CM R07.89 Other chest pain VICKI SHAY 05/11 [facility] Outpatient Encounter [id number] [id number] 05/11 [facility] Outpatient Encounter [id number] [id number] 05/12 [facility] Outpatient Encounter 49462-7.65 [id number] NAKUL HAMILTON AM H 05/12 [facility] OFF/OP EST MAY X REQ PHY/QHP 91627-7.65 [id number] Diagnos is: ICD-10- CM H61.23 valentin Chau SHE RREL L 05/19 [facility] PH1 ASSMT&MGMT NQHP 5-10 12581-5.65 [id number] Diagnos is: ICD-10- CM I50.20 Unspeci fied systoli c (conges tive) heart failure Azucena RUFFIN 06/09 [facility] NQHP OL DIG ASSMT&MGMT 5-10 44052-7.65 [id number] Diagnos is: ICD-10- CM Z28.39 Other underim munizat ion status SHAMIKA VALERO LLBalbir E 06/15 [facility] OFF/OP EST MAY X REQ PHY/QHP 21218-5.65 [id number] 154 Diagnos is: ICD-10- CM Z23 Encount er for immuniz ation PHYLLIS BRUNO EE L 06/15 [facility] OFF/OP EST MAY X REQ PHY/QHP [id number] Diagnos is: ICD-10- CM 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 PATRICK ,RADHA B 06/28 [facility] Outpatient Encounter [id number] 06/30 [facility] Outpatient Encounter [id number] RADHA NGUYEN 08/02 [facility] Outpatient Encounter [id number] RADHA NGUYEN 08/10 [facility] NQHP OL DIG ASSMT&MGMT 5-10 [id number] Diagnos is: ICD-10- CM I25.118 Athscl heart disease of lower [place] cor art w oth ang pctrs MILAGROS CALDERON 08/25 [facility] OFFICE O/P EST HI 40 MIN [id number] Diagnos is: ICD-10- CM I50.22 Chronic systoli c (conges tive) heart failure CASEMALVIN 09/05 [facility] Outpatient Encounter [id number] 09/16 [facility] OFFICE O/P EST MOD 30 MIN [id number] Diagnos is: ICD-10- CM E10.59 Type 1 diabete s mellitu s with oth Azucena John 10/06 [facility] Outpatient Encounter [id number] BRIGID BENITES 10/07 [facility] Outpatient Encounter [id number] Azucena FLOYD 10/10 [facility] OFFICE O/P EST MOD 30 MIN [id number] Diagnos is: ICD-10- CM 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 RAUL,MIKE MOLINA N 10/12 [facility] MTMS BY PHARM ADDL 15 MIN [id number] Diagnos is: ICD-10- CM 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 NIGEL KEYES RE R 10/13 [facility] NUBHVL XM PHYS/QHP 1ST [place] [id number] Diagnos is: ICD-10- CM R41.9 Unsp symptom s and signs w cogniti ve functio ns and awarene ss SOL GONZALEZ AH T 10/18 [facility] NQHP OL DIG ASSMT&MGMT 21+ [id number] [id number] Diagnos is: ICD-10- CM I50.20 Unspeci fied systoli c (conges tive) heart failure Azucena RUFFIN 10/18 [facility] Outpatient Encounter [id number] 10/20 [facility] [place] [id number] Diagnos is: ICD-10- CM E10.649 Type 1 diabete s mellitu s with hypogly cemia without coma LEXI ARRIETA L 10/25 [facility] Outpatient Encounter [id number] NAKUL HAMILTON AM H 10/26 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 MIKE CARTER N 11/21 [facility] NQHP OL DIG ASSMT&MGMT 11-20 [id number] Diagnos is: ICD-10- CM Z95.810 Presenc e of automat ic (implan table) cardiac defibri DONALD Armstrong 11/21 [facility] MED NUTRITION INDIV SUBSEQ [id number] Diagnos is: ICD-10- CM E10.649 Type 1 diabete s mellitu s with hypogly cemia without coma LEXI ARRIETA L 11/21 [facility] Outpatient Encounter [id number] RADHA NGUYEN 11/21 [facility] DEV INTERROG REMOTE 06/02/[employer]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 [id number] Diagnos is: ICD-10- CM I50.20 Unspeci fied systoli c (conges tive) heart failure JUAN TOMAS C 11/24 [facility] Outpatient Encounter [id number] 11/27 [facility] OFFICE O/P EST MOD 30 MIN [id number] [id number] Diagnos is: ICD-10- CM N18.2 Chronic kidney disease , stage 2 (mild) BUBBA SIMS S 12/06 [facility] [place] [id number] [id number] Diagnos is: ICD-10- CM I50.20 Unspeci fied systoli c (conges tive) heart failure JUAN TOMAS IL C 12/08 [facility] MTMS BY PHARM ADDL 15 MIN [id number] Diagnos is: ICD-10- CM 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 NIGEL KEYES R 12/08 [facility] Outpatient Encounter [id number] 12/19 [facility] Outpatient Encounter [id number] Azucena RUFFIN 01/13 [facility] SYNCH AUDIO-ONLY EST SF 10 [id number] Diagnos is: ICD-10- CM N20.0 Calculu s of kidney BUBBA SIMS S 01/16 [facility] Outpatient Encounter [id number] Diagnos is: ICD-10- CM 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 Social History Type Response Date Comment Sourc e Tobacco smoking status NHIS VA-TOBACCO NEVER USED CIGARETTES 04/18/2024 [facility] History of tobacco use VA-TOBACCO NEVER USED OTHER TYPE 04/18/2024 [facility] History of tobacco use ORYX ADMIT TOBACCO SCREEN NO 10/15/2023 [facility] History of tobacco use VA-TOBACCO NEVER USED 10/14/2022 [facility] History of tobacco use ORYX ADMIT TOBACCO SCREEN NO 03/13/2022 [facility] History of tobacco use VA-TOBACCO NEVER USED 11/09/2020 [facility] History of tobacco use RI-TOBACCO QUIT 15 YRS OR MORE 04/20/2019 [facility] History of tobacco use VA-TOBACCO NEVER USED 10/22/2017 [facility] History of tobacco use LIFETIME NON-USER OF TOBACCO 03/06/2017 [facility] History of tobacco use LIFETIME NON-USER OF TOBACCO 11/19/2015 [facility] History of tobacco use LIFETIME NON-USER OF TOBACCO 05/02/2014 [facility] History of tobacco use LIFETIME NON-USER OF TOBACCO 06/15/2013 [facility] History of tobacco use LIFETIME NON-USER OF TOBACCO 06/17/2012 [facility] Plan of Care List of future care activities from [facility] facilities. Additional future care activities may be listed in the Assessment and Plan section. Date/Time Care Activity Care Activity Detail Facili ty 02/08/2025 AMBULATORY - MEDICINE AMBULATORY - MEDICI NE [facility] Advance Directives List of completed, amended, or rescinded Advance Directives on record at [facility] facilities. An actual copy of the Directive is not included. Date Advance Directive Provider Source 11/19/2015 ADVANCE DIRECTIVE DISCUSSION JENNIFER LONDONO [facility]
--- NOTE | 2025-01-31 09:34 | ECG_ITS ---
Test Date: 2025-01-31 08:53:54 Measurements Intervals [place] Rate: 79 P: 196 SD: 110 QRS: -82 QRSD: 202 T: 128 QT: 495 QTc: 568 Interpretive Statements ELECTRONIC ATRIAL PACEMAKER ELECTRONIC VENTRICULAR PACEMAKER No previous ECG available for comparison Electronically Signed On 01-31-2025 10:43:24 CDT by Hardeep Vargas M.D.
[2025-01-31 09:55] LABS: Hematocrit 49.1 % (42.0-52.0); Hemoglobin 15.6 g/dL (14.0-18.0); Immature Granulocyte Percent A 0.2 % (0-0.5); Immature Platelet Fraction Pct 2.1 % (0.9-11.2); Lymphocytes Absolute Auto 0.88 K/mm3 (0.9-3.2); Mean Corpuscular HGB Conc 31.8 g/dl (32-36); Mean Corpuscular Hemoglobin 29.5 pg (26-34); Mean Corpuscular Volume 93.0 fl (80-100); Nucleated Red Blood Cells Absolute Auto 0.000 K/mm3 (0.0-0.012); Nucleated Red Blood Cells Perc 0.0 % (0.0-0.2); Platelet Count Result 133 k/mm3 (150-375); Red Blood Count 5.28 M/mm3 (4.6-6.20); White Blood Count 5.8 K/mm3 (4.5-10.0)
--- OUTSIDE RECORDS SUMMARY | 2025-01-31 09:56 | XMS_ITS | Clinical Summary ---
Author Organization [facility] Address [address] [place] [address] Care Team Providers Care Interdisciplinary Professor Name Role Phone Unavailable Primary Care Provider [...] COVID-19 Vaccine ( - 2023-2 5 season) 2025 Meningococcal B Vaccine Aged Out No l onger eligible based on patient's age to complete this topic Meningococcal Vaccine Aged Out No camelia john eligible based on patient's age to complete this topic RSV Immunizations Under 20 Months Aged Out No longer eligible based on patient's age to complete this topic
[2025-01-31 10:11] LABS: Alanine Aminotransferase 28 U/L (6-50); Albumin Level 4.0 g/dL (3.5-5.1); Alkaline Phosphatase 228 U/L (38-126); Anion Gap 6 mmol/L (4-12); Aspartate Amino Transferase 36 U/L (17-59); Bilirubin,Total 1.6 mg/dL (0.2-1.3); Blood Urea Nitrogen 20 mg/dL (9-20); Calcium 9.0 mg/dL (8.4-10.2); Carbon Dioxide 26 mmol/L (22-30); Chloride 106 mmol/L (98-107); Estimated CRCL calculation 60 ml/min; Estimated Glomerular Filt Rate > 60; Glucose 142 mg/dL (65-110); Lipase 39 U/L (23-300); Potassium 4.6 mmol/L (3.4-5.0); Sodium 138 mmol/L (137-145); Total Protein 6.9 g/dL (6.3-8.2)
[2025-01-31 10:17] LABS: INR 1.0; Prothrombin Time 13.6 Seconds (11.1-14.7)
[2025-01-31 10:18] LABS: Partial Thromboplastin Time 25.5 Seconds (22.3-36.8)
[2025-01-31 10:21] LABS: Troponin I 0.025 ng/mL (0.000-0.034)
[2025-01-31 10:53] LABS: NT Pro B Type Natriuretic Pept 5850 pg/mL (19.9-100)
[2025-01-31] MEDS: FUROSEMIDE INJ 40 MG/4 ML VIAL IV PUSH (11:24)
--- NOTE | 2025-01-31 12:41 | PM.IMHP ---
H&P: HPI History of Present Illness Date/Time: 01/31/25 12:41 Chief Complaint: Shortness of breath Narrative: 79-year-old male past medical history of CAD, pacemaker, defibrillator, diabetes presents the hospital with shortness of breath. Patient states that started feeling short of breath on Thursday, on Thursday he was unable to do his normal walk due to shortness of breath. Last night the patient cannot sleep flat had to sleep elevated with pillows. Presented to the hospital today with acute shortness of breath. Lab work in the ED shows glucose of 142, total bili of 1.6, the alkaline phos of 228, troponin of 0.052 followed by 0.023, BNP of 5850. Influenza A/B, COVID negative. Chest x-ray shows mild CHF. Patient was given 40 mg of Lasix in ED. Review of Systems Review of Systems: 12 systems were reviewed and are negative except for as per HPI. COUNTS INCLUDE 234 BEDS AT THE [facility] Past Medical History Medical History Strain of left shoulder Soft tissue injury of back Depression with anxiety Restless leg syndrome CAD (coronary artery disease) Congestive heart failure Impacted cerumen of right ear Essential (primary) hypertension Mixed hyperlipidemia Type 1 diabetes mellitus maturity onset Heart block Complete heart block requiring a pacemaker Cardiac pacemaker Surgical History Surgical History S/P triple vessel bypass History of coronary artery stent placement X8 H/O percutaneous transluminal coronary angioplasty H/O vasectomy Family History Family History Grandparent Diabetes mellitus Hypertension Family history of coronary artery disease Sibling Hypertension Mother Family history of elevated blood lipids Family history of coronary artery disease Hypertension Family history of cardiovascular disease Father Family history of coronary artery disease Family history of elevated blood lipids Hypertension Family history of cardiovascular disease Social History Social History Social History: The patient is and lives with his . He has 2 children. The patient is retired from working for [employer]. The patient states that he is a lifelong nonsmoker does not use any marijuana alcohol or illicit drugs. His is the durable power research attorney for healthcare. Code status full Caffeine- soda Smoking status: Never smoker Alcohol intake: current Drinks per week: 1 Substance use: current Substance use type: marijuana Other substance usage details: gummies/liquid Lack of Transportation: No Lack of Food: Never True Current Housing: I Have Housing Concerned About Future Housing: No Difficulty Paying Gas/Electric Bills: No Difficulty Paying for Meds: No Currently Unemployed: No Education: Master's Degree or Higher Difficulty w/ Childcare or Family Care: No Living arrangements: with family Additional living arrangements comments: Spouse Occupation/Education: retired Gender identity (if verbalized by the patient): Male Spiritual care concerns: No Meds Home Medications and Allergies Home Medications ?Medication ?Instructions ?Recorded ?Confirmed ?Type aspirin 81 mg tablet,delayed 81 mg PO DAILY 07/14/19 06/17/24 History release cholecalciferol (vitamin D3) 50 50 mcg PO DAILY 08/24/20 12/14/24 History mcg (2,000 unit) tablet insulin lispro 100 unit/mL 25 unit subcut .COMPLEX 12/03/22 12/14/24 History subcutaneous solution (Humalog U-100 Insulin) tamsulosin 0.4 mg capsule (Flomax) 0.4 mg PO QHS 09/16/23 12/14/24 History metoprolol succinate 25 mg 12.5 mg PO DAILY 12/14/23 12/14/24 History tablet,extended release 24 hr albuterol sulfate 90 mcg/actuation 2 inh inhalation Q4H PRN shortness 06/17/24 12/14/24 Rx aerosol inhaler (Ventolin HFA) of breath or wheezing #8.5 grams citalopram 20 mg tablet See Rx Instructions .Route 09/21/24 12/14/24 Rx .COMPLEX #90 tabs atorvastatin 20 mg tablet 80 mg PO DAILY 12/14/24 12/14/24 History diphenhydramine 25 2 tablet PO HS 12/14/24 12/14/24 History mg-acetaminophen 500 mg tablet (Tylenol PM Extra Strength) gabapentin 300 mg capsule 300 mg PO TID 12/14/24 12/14/24 History insulin glargine 100 unit/mL 15 unit subcut DAILY 12/14/24 12/14/24 History subcutaneous solution (Lantus U-100 Insulin) furosemide 40 mg tablet (Lasix) 40 mg PO DAILY #14 tabs 01/31/25 Rx Allergies Allergy/AdvReac Type Severity Reaction Status Date / Time levofloxacin Allergy Unknown Muscle Verified 01/31/25 11:09 Spasms lisinopril AdvReac Unknown High Verified 01/31/25 11:09 potassium Vital Signs Vital Signs - 24 hr 01/31/25 09:32 01/31/25 09:32 Temperature 98.4 F Pulse Rate 71 Respiratory Rate 21 H Blood Pressure 148/90 H Pulse Oximetry 96 100 Oxygen Delivery Nasal Cannula Nasal Cannula Oxygen Flow Rate 2 2 Exam Narrative: General: well appearing, appears stated age. HEENT: normocephalic, atraumatic. Mucous membranes moist. EOMI, PERRLA, bilateral sclera anicteric, no conjunctival injection. Neck supple without JVD, lymphadenopathy, or bruit. Respiratory: clear to ascultation bilaterally. No rales/rhonic/wheezes. Cardiovascular: Regular rate and rhythm, normal S1-S2 upon ascultation. No murmurs, rubs, or clicks. PMI is nondisplaced, capillary refill less than 3 second. Abdomen: Soft, round, no pulsatile masses, nondistended and nontender. No rebound, no guarding. No CVA tenderness, no hepatosplenomegaly. Bowel sounds present to all four quadrants. No high pitch or tinkling sounds, resonant to percussion. Extremities: No cyanosis, clubbing, or edema present. Pulses are palpable 2/2. Active ROM to all four extremities. Neuro: Alert and orientated x 4. PERRLA. Cranial nerves 2-12 intact without focal deficit. Skin: Warm, dry, and intact, without rash, erythema, or lesion. Psych: pleasant, cooperative, normal speech, normal affect, no hallucinations, no dysarthia H&P: Results Labs Labs: Short CBC 01/31/25 Range/Units 09:48 WBC 5.8 (4.5-10.0) K/mm3 Hgb 15.6 D (14.0-18.0) g/dL Hct 49.1 (42.0-52.0) % Plt Count 133 L D (150-375) k/mm3 BMP 01/31/25 09:48 Sodium 138 Potassium 4.6 Chloride 106 Carbon Dioxide 26 BUN 20 D Creatinine 0.93 Glucose 142 H Calcium 9.0 Cardiac Enzymes 01/31/25 Range/Units 09:48 Troponin I 0.025 (0.000-0.034) ng/mL Liver Function 01/31/25 Range/Units 09:48 Total Bilirubin 1.6 H (0.2-1.3) mg/dL AST 36 (17-59) U/L ALT 28 (6-50) U/L Alkaline Phosphatase 228 H (38-126) U/L Albumin 4.0 (3.5-5.1) g/dL Assessment and Plan Assessment and plan (1) Congestive heart failure: Code(s): I50.9 - Heart failure, unspecified Status: Chronic Assessment and Plan: Cardiology consulted IV Lasix Fluid restriction Echocardiogram pending (2) Depression with anxiety: Code(s): F41.8 - Other specified anxiety disorders Status: Chronic (3) Essential (primary) hypertension: Code(s): I10 - Essential (primary) hypertension Status: Chronic (4) CAD (coronary artery disease): Code(s): I25.10 - Atherosclerotic heart disease of solomon coronary artery without angina pectoris Status: Chronic (5) Mixed hyperlipidemia: Code(s): E78.2 - Mixed hyperlipidemia Status: Chronic (6) Type 1 diabetes mellitus maturity onset: Code(s): E10.9 - Type 1 diabetes mellitus without complications Status: Chronic
[2025-01-31 13:06] LABS: Troponin I 0.023 ng/mL (0.000-0.034)
--- NOTE | 2025-01-31 13:42 | ED.SOB ---
HPI - SOB/Dyspnea General Chief Complaint: Shortness of Breath/Dyspnea Stated Complaint: SOB Time Seen by Provider: 01/31/25 09:35 Source: patient Mode of arrival: EMS Limitations: no limitations History of Present Illness HPI Narrative: 79-year-old with a history of hypertension, diabetes, CAD, status post CABG, AICD here with a complaint of shortness of breath for last 3 days. Patient states that he usually walks about 3.5 to 4 miles a day , while he was walking with his friend 2 days ,he was unable to catch up with her speed was having SOB and CP however since then he never had any Cp does have SOB with ambulation and lying flat , he does have H/O CHF , does follow with Cardiology at [place] . He was seen in Urgent care and was later refereed to ER for Evaluation. MD elicited complaint: shortness of breath Pertinent past history: congestive heart failure Onset (ago): day(s) (2) Timing: constant Severity: moderate Exacerbating factors: lying flat Relieving factors: upright position Known history of: congestive heart failure Associated symptoms: denies other symptoms Treatment prior to arrival: oxygen Related Data Home oxygen amount: none Home Medications ?Medication ?Instructions ?Recorded ?Confirmed ?Last Taken ?Type aspirin 81 mg tablet,delayed 81 mg PO DAILY 07/14/19 06/17/24 04/10/21 History release cholecalciferol (vitamin D3) 50 50 mcg PO DAILY 08/24/20 12/14/24 04/10/21 12:00 History mcg (2,000 unit) tablet insulin lispro 100 unit/mL 25 unit subcut .COMPLEX 12/03/22 12/14/24 Unknown History subcutaneous solution (Humalog U-100 Insulin) tamsulosin 0.4 mg capsule (Flomax) 0.4 mg PO QHS 09/16/23 12/14/24 Unknown History metoprolol succinate 25 mg 12.5 mg PO DAILY 12/14/23 12/14/24 Unknown History tablet,extended release 24 hr atorvastatin 20 mg tablet 80 mg PO DAILY 12/14/24 12/14/24 Unknown History diphenhydramine 25 2 tablet PO HS 12/14/24 12/14/24 Unknown History mg-acetaminophen 500 mg tablet (Tylenol PM Extra Strength) gabapentin 300 mg capsule 300 mg PO TID 12/14/24 12/14/24 Unknown History insulin glargine 100 unit/mL 15 unit subcut DAILY 12/14/24 12/14/24 Unknown History subcutaneous solution (Lantus U-100 Insulin) Allergies Allergy/AdvReac Type Severity Reaction Status Date / Time levofloxacin Allergy Unknown Muscle Verified 01/31/25 11:09 Spasms lisinopril AdvReac Unknown High Verified 01/31/25 11:09 potassium Review of Systems Review of Systems: All systems reviewed & are unremarkable except as noted in HPI and below Constitutional: Constitutional: Reports no additional constitutional complaints Eyes: Eyes: Reports no additional eye complaints ENT: Reports system reviewed and no additional complaints, except as documented Respiratory: Respiratory: Reports as per HPI Gastrointestinal: Gastrointestinal: Reports no additional gastrointestinal complaints Musculoskeletal: Musculoskeletal: Reports no additional musculoskeletal complaints Neurologic: Reports system reviewed and no additional complaints, except as documented Psychiatric: Psychiatric: Reports no additional psychiatric complaints [facility] Past Medical History Medical History Strain of left shoulder Soft tissue injury of back Depression with anxiety Restless leg syndrome CAD (coronary artery disease) Congestive heart failure Impacted cerumen of right ear Essential (primary) hypertension Mixed hyperlipidemia Type 1 diabetes mellitus maturity onset Heart block Complete heart block requiring a pacemaker Cardiac pacemaker Surgical History Surgical History S/P triple vessel bypass History of coronary artery stent placement X8 H/O percutaneous transluminal coronary angioplasty H/O vasectomy Family History Family History Grandparent Diabetes mellitus Hypertension Family history of coronary artery disease Sibling Hypertension Mother Family history of elevated blood lipids Family history of coronary artery disease Hypertension Family history of cardiovascular disease Father Family history of coronary artery disease Family history of elevated blood lipids Hypertension Family history of cardiovascular disease Social History Social History Social History: The patient is and lives with his . He has 2 children. The patient is retired from working for [employer]. The patient states that he is a lifelong nonsmoker does not use any marijuana alcohol or illicit drugs. His is the durable power assistant city attorney for healthcare. Code status full Caffeine- soda Smoking status: Never smoker Alcohol intake: current Drinks per week: 1 Substance use: current Substance use type: marijuana Other substance usage details: gummies/liquid Lack of Transportation: No Lack of Food: Never True Current Housing: I Have Housing Concerned About Future Housing: No Difficulty Paying Gas/Electric Bills: No Difficulty Paying for Meds: No Currently Unemployed: No Education: Master's Degree or Higher Difficulty w/ Childcare or Family Care: No Living arrangements: with family Additional living arrangements comments: Spouse Occupation/Education: retired Gender identity (if verbalized by the patient): Male Spiritual care concerns: No Exam Narrative: GENERAL: Well-appearing, well-nourished, and in no acute distress. HEAD: Normocephalic, atraumatic. EYES: PERRLA and EOMI. ENT: Nares clear, no rhinorrhea or epistaxis. Mucous membranes moist. NECK: Supple. CHEST: Clear to auscultation. No respiratory distress. HEART: Regular rate and rhythm. No murmur heard. Normal peripheral pulses. ABDOMEN: Soft, nontender, nondistended, normal active bowel sounds. EXTREMITIES: Normal range of motion. No edema. SKIN: Warm, dry, no rash. NEURO: No focal deficits. Alert and oriented x3. PSYCH: Normal mood and affect. Course Course Emergency Course: Informed patient about his lab work, EKG and a chest x-ray findings. Patient initially agreed for admission however after 1 hour so he changed his mind and declined admission he wants to follow with his doctor to the hospital. He did void close to 700 mL of urine after IV Lasix. Vital Signs Vital signs: Vital Signs Temperature 36.9 C 01/31/25 09:32 Pulse Rate 71 01/31/25 09:32 Respiratory Rate 21 H 01/31/25 09:32 Blood Pressure 148/90 H 01/31/25 09:32 Pulse Oximetry 96 01/31/25 09:32 Oxygen Delivery Nasal Cannula 01/31/25 09:32 Oxygen Flow Rate 2 01/31/25 09:32 Temperature 36.9 C 01/31/25 09:32 Pulse Rate 75 01/31/25 13:46 Respiratory Rate 26 H 01/31/25 13:46 Blood Pressure 135/76 01/31/25 13:46 Pulse Oximetry 96 01/31/25 13:46 Oxygen Delivery Nasal Cannula 01/31/25 09:32 Oxygen Flow Rate 2 01/31/25 09:32 MDM - SOB/Dyspnea Differential Diagnosis Differential diagnosis: Likely congestive heart failure Medical Records Attestation: I reviewed the patient's medical records. Lab Data Attestation: I reviewed the patient's lab results. 01/31/25 09:48 01/31/25 09:48 Labs: Lab Results 01/31/25 01/31/25 Range/Units 09:48 12:30 WBC 5.8 (4.5-10.0) K/mm3 RBC 5.28 (4.6-6.20) M/mm3 Hgb 15.6 D (14.0-18.0) g/dL Hct 49.1 (42.0-52.0) % MCV 93.0 (80-100) fl MCH 29.5 (26-34) pg MCHC 31.8 L (32-36) g/dl RDW 14.6 H (11.5-14.5) % Plt Count 133 L D (150-375) k/mm3 MPV 9.6 (7.4-10.4) fl Immature Gran % (Auto) 0.2 (0-0.5) % Neut % (Auto) 70.9 (45.5-73.1) % Lymph % (Auto) 15.3 L (18.3-44.2) % Randall % (Auto) 11.0 H (2.6-8.5) % Eos % (Auto) 2.3 (0-4.4) % Baso % (Auto) 0.3 (0.2-1.2) % Lymph # (Auto) 0.88 L (0.9-3.2) K/mm3 Randall # (Auto) 0.6 (0.1-0.6) K/mm3 Eos # (Auto) 0.1 (0-0.3) K/mm3 Baso # (Auto) 0.0 (0.0-0.1) K/mm3 Abs Immat Gran (auto) 0.01 (0.00-0.031) K/mm3 Absolute Neuts (auto) 4.1 (1.3-6.7) K/mm3 Absolute Nucleated RBC 0.000 (0.0-0.012) K/mm3 Nucleated RBC % 0.0 (0.0-0.2) % % Immature Plt Fraction 2.1 (0.9-11.2) % PT 13.6 (11.1-14.7) Seconds INR 1.0 APTT 25.5 (22.3-36.8) Seconds Sodium 138 (137-145) mmol/L Potassium 4.6 (3.4-5.0) mmol/L Chloride 106 (98-107) mmol/L Carbon Dioxide 26 (22-30) mmol/L Anion Gap 6 (4-12) mmol/L BUN 20 D (9-20) mg/dL Creatinine 0.93 (0.7-1.3) mg/dL Estim Creat Clear Calc 60 ml/min Estimated GFR > 60 (59 - ) Glucose 142 H (65-110) mg/dL Calcium 9.0 (8.4-10.2) mg/dL Total Bilirubin 1.6 H (0.2-1.3) mg/dL AST 36 (17-59) U/L ALT 28 (6-50) U/L Alkaline Phosphatase 228 H (38-126) U/L Troponin I 0.025 0.023 (0.000-0.034) ng/mL NT-Pro-B Natriuret Pep 5850 H (19.9-100) pg/mL Total Protein 6.9 (6.3-8.2) g/dL Albumin 4.0 (3.5-5.1) g/dL Lipase 39 (23-300) U/L Imaging Data Radiologist's impression: ITS Impressions Chest X-Ray 01/31/25 10:32 IMPRESSION: Mild CHF. Superimposed infection cannot be excluded. ECG Data EKG #1: ECG completion date: 01/31/25 ECG completion time: 08:53 EKG Interpretation: normal rate (79) and no acute changes Pacemaker function: normal pacer function EKG #2: ECG completion date: 01/31/25 ECG completion time: 09:37 EKG Interpretation: normal rate (70), other (Paced rhythm) and no acute changes Pacemaker function: normal pacer function Discharge Plan Discharge Clinical Impression: Congestive heart failure Qualifiers: Heart failure type: unspecified Patient Disposition: Home Condition: Stable Instructions: Heart Failure (DC) Additional Instructions: Continue home medication, low-salt diet, follow-up with your lead shipper at [facility] Patient Language: Nigerien Prescriptions: New furosemide [Lasix] 40 mg tablet 40 mg PO DAILY Qty: 14 0RF No Action diphenhydramine-acetaminophen [Tylenol PM Extra Strength] 25-500 mg tablet 2 tablet PO HS aspirin 81 mg tablet,delayed release (DR/EC) 81 mg PO DAILY tamsulosin [Flomax] 0.4 mg capsule 0.4 mg PO QHS insulin glargine [Lantus U-100 Insulin] 100 unit/mL solution 15 unit SUB-Q DAILY cholecalciferol (vitamin D3) 50 mcg (2,000 unit) tablet 50 mcg PO DAILY atorvastatin 20 mg tablet 80 mg PO DAILY insulin lispro [Humalog U-100 Insulin] 100 unit/mL solution 25 unit subcut .COMPLEX Rx Instructions: 25 units subcutaneously on sliding scale; gabapentin 300 mg capsule 300 mg PO TID metoprolol succinate 25 mg tablet extended release 24 hr 12.5 mg PO DAILY Patient Comments: managed by cardiology albuterol sulfate [Ventolin HFA] 90 mcg/actuation HFA aerosol inhaler 2 inh inhalation Q4H PRN (Reason: shortness of breath or wheezing) Qty: 8.5 0RF citalopram 20 mg tablet See Rx Instructions .ROUTE .COMPLEX Qty: 90 1RF Dose Instruction: Take 1 tablet by mouth once daily Rx Instructions: Take 1 tablet by mouth once daily Follow-up/Referrals: Nichole Ndiaye DO [Primary Care Provider, Family Practice] Time of Disposition: 13:50
== END 2025-01-31 14:03 | disposition home or self-care (01) ==
PROVIDERS: Emergency Provider Family Medicine; PCP Family Medicine
DX: I50.9 Heart failure, unspecified (principal); I11.0 Hypertensive heart disease with heart failure; I25.10 Atherosclerotic heart disease of native coronary artery without angina pectoris; Z95.1 Presence of aortocoronary bypass graft; Z79.82 Long term (current) use of aspirin; Z79.4 Long term (current) use of insulin; F41.8 Other specified anxiety disorders; E10.9 Type 1 diabetes mellitus without complications; E78.2 Mixed hyperlipidemia; Z95.0 Presence of cardiac pacemaker
CPT/HCPCS: 36415; 71046; 80053; 83690; 83880; 84484; 85025; 85055; 85610; 85730; 87426; 87804; 93005; 96374; 99284; A9270; J1938